=== PATIENT | female | born 1955 | race Caucasian/White ===

== ENCOUNTER → 2024-10-30 04:00 | Outpatient (REF) | payer MEDICARE, MEDICAID, SELFPAY ==
[2024-10-30 08:17] LABS: Hematocrit 23.2 % (37-47); Hemoglobin 7.3 g/dL (12.0-15.0); Mean Corp Hgb Conc 31.5 g/dL (32-36); Mean Corpuscular Hgb 22.8 pg (27.0-32.0); Mean Corpuscular Volume 72.5 fL (81-99); Mean Platelet Vol. 12.7 fl (6.2-12.0); Platelet Count 221 K/mm3 (150-450); RBC Distribution Width CV 17.5 % (11.6-14.6); RBC Distribution Width SD 45.7 fl (35.1-43.9); White Blood Count 19.4 K/mm3 (4.4-11.0)
[2024-10-30 09:36] LABS: ALB/GLOB Ratio 0.8 RATIO (0.9-2.4); AST(SGOT) 37 U/L (<=31); Alanine Aminotransfer ALT/SGPT 61 U/L (<=34); Albumin, Serum 2.5 g/dL (3.4-4.8); Alkaline Phosphatase 340 U/L (35-104); Anion Gap 10 (5-15); BUN 20 mg/dL (4-19); BUN/Creat Ratio 52.1 RATIO (10-20); Calcium,Total 7.9 mg/dL (7.6-11.0); Carbon Dioxide 22.5 mmol/L (21.0-32.0); Chloride 100 mmol/L (98-108); Creatinine, Serum 0.38 mg/dL (0.70-1.20); EST Glomerular Filtration Rate 109 (>60); Globulin 2.9 g/dL (2.2-4.2); Glucose 221 mg/dL (70-99); Phosphorus 3.4 mg/dL (2.7-4.5); Potassium 4.1 mmol/L (3.3-5.1); Protein, Total 5.4 g/dL (5.9-8.4); Sodium Level 133 mmol/L (133-145); Total Bilirubin 0.34 mg/dL (0.00-1.30); Triglycerides 80 mg/dL
[2024-11-02 06:08] LABS: Zinc, Plasma or Serum 41 ug/dL (44-115)
== END ==
LOC: OLS.SW 04:00
PROVIDERS: Referring Provider Internal Medicine; Visit Provider Internal Medicine
DX: D64.9 Anemia, unspecified (principal); E43 Unspecified severe protein-calorie malnutrition; M86.9 Osteomyelitis, unspecified; I96 Gangrene, not elsewhere classified; K63.2 Fistula of intestine
CPT/HCPCS: 36415; 80053; 83735; 84100; 84478; 84630; 85027

== ENCOUNTER → 2024-10-30 12:45 | Outpatient (REF) | payer MEDICARE, MEDICAID, SELFPAY | LOC: OLS.SW 12:45 | PROVIDERS: PCP Internal Medicine; Visit Provider Internal Medicine | DX: D72.829 Elevated white blood cell count, unspecified (principal) | CPT/HCPCS: 87040; 87077; 87186 ==

== ENCOUNTER 2024-10-30 23:41 | Emergency (ER) | payer MEDICARE, MEDICAID, SELFPAY ==
[2024-10-30 23:43] VITALS: BP 102/59; PULSE 86; RESP 19; TEMP 36.6; O2SAT 92; BMI 18.4
--- NOTE | 2024-10-30 23:45 | EX.ED.DYSGE1 ---
HPI History of Present Illness Chief Complaint: Abn Labs [facility] Medical History (Updated 10/31/24 @ 00:43 by Mehran Weaver) Need for assistance with personal care Body mass index [BMI] 19.9 or less, adult Unspecified open wound of abdominal wall, unspecified quadrant without penetration into peritoneal cavity, sequela Pressure ulcer of right buttock Pressure ulcer of sacral region Non-pressure chronic ulcer left lower leg, limited to breakdown skin Hypoglycemia History of falling Encounter for orthopedic aftercare following surgical amputation Other malaise Other abnormalities of gait and mobility Muscle weakness (generalized) Other symbolic dysfunction Dysphagia Idiopathic peripheral autonomic neuropathy Iron deficiency anemia Failure to thrive Acquired absence of other right toe(s) Peripheral vascular disease Anemia Fistula of intestine Gangrene Osteomyelitis Severe protein-calorie malnutrition Home Medications ?Medication ?Instructions ?Recorded ?Last Taken ?Type aspirin 81 mg tablet 81 mg PO DAILY 10/31/24 Unknown History atorvastatin 80 mg tablet (Lipitor) 80 mg PO QHS 10/31/24 Unknown History citalopram 10 mg tablet (Celexa) 10 mg PO QHS 10/31/24 Unknown History ferrous sulfate 325 mg (65 mg 325 mg PO DAILY 10/31/24 Unknown History iron) tablet (Feosol) gabapentin 100 mg capsule 100 mg PO DAILY 10/31/24 Unknown History heparin (porcine) 5,000 unit/mL 5,000 unit subcut Q12H 10/31/24 Unknown History injection solution Allergy/AdvReac Type Severity Reaction Status Date / Time No Known Allergies Allergy Verified 10/30/24 23:43 Social History (System 09/19/24 @ 05:44 by Rachele Whitney) Smoking Status: Never smoker EXAM Physical Exam Const Vital Signs: 10/30/24 23:43 10/31/24 00:00 10/31/24 00:00 Temperature 97.8 F 97.8 F Temperature Source Oral Oral Pulse Rate 86 87 Respiratory Rate 19 H 20 H Respiratory Effort Respiratory Pattern Blood Pressure 102/59 L 106/46 L Blood Pressure Mean 73 66 Pulse Ox 92 92 Oxygen Delivery Method Room Air Room Air 10/31/24 00:51 10/31/24 01:24 10/31/24 01:51 Temperature 97.7 F L Temperature Source Temporal Pulse Rate 78 Respiratory Rate 15 Respiratory Effort Normal Respiratory Pattern Normal Blood Pressure 94/41 L 93/48 L Blood Pressure Mean 58 63 Pulse Ox 94 Oxygen Delivery Method 10/31/24 02:00 10/31/24 03:00 10/31/24 04:00 Temperature 97.9 F 97.7 F L 97.8 F Temperature Source Oral Oral Oral Pulse Rate 81 78 86 Respiratory Rate 13 15 15 Respiratory Effort Respiratory Pattern Blood Pressure 93/43 L 90/63 96/42 L Blood Pressure Mean 59 72 60 Pulse Ox 97 95 95 Oxygen Delivery Method Room Air 10/31/24 05:00 Temperature 97.6 F L Temperature Source Oral Pulse Rate 84 Respiratory Rate 14 Respiratory Effort Respiratory Pattern Blood Pressure 103/47 L Blood Pressure Mean 65 Pulse Ox 95 Oxygen Delivery Method [facility] [place] Medical decision making narrative: HISTORY OF PRESENT ILLNESS: Chief complaint: Abnormal lab 69-year-old female presents concern for abnormal labs. Per assisted report patient had positive blood cultures and the white blood cell count elevation which was concerning. 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 She notes chronic wounds to her feet that have been taken care of by podiatry in the past. She notes she was sent in because of abnormal blood work. She is overall a poor historian. Does not endorse any new symptoms other than shortness of breath. REVIEW OF SYSTEMS: Pertinent positives: Positive blood cultures, elevated white blood cell count, shortness of breath Pertinent negatives: Chest pain, vomiting PHYSICAL EXAM: Nursing triage notes reviewed, Vital signs reviewed Constitutional: please see [facility] HENT: MMM Eyes: Pupils equal round and reactive to light, Extraocular muscles intact Neck: No stridor, no JVD, full neck ROM Lungs: Clear to auscultation, No wheezing or rales. No increased work of breathing, no conversational dyspnea, no accessory muscle use, no nasal flaring. No respiratory distress noted Heart: Regular rate and rhythm, No murmurs, No rubs and No gallops, 2+ distal pulses (radial, femoral, posterior tibial) in all extremities Abdomen: Soft, there is no tenderness, rigidity, rebound or guarding, no obvious peritoneal signs, no palpable pulsatile abdominal masses, no auscultated abdominal bruit : No CVAT Extremities: No edema Neuro: No new focal neurological deficits, cranial nerves II through XII intact, 5/5 strength in all present extremities. Intact sensation to light touch in all present extremities, 2+ reflexes bilateral patella tendons. Skin: No rash or lesions noted MEDICAL DECISION MAKING: Chief Complaint: please see HPI External records reviewed: Reviewed labs from earlier today CBC shows leukocytosis (19.4) suggestive of systemic elevation, this is uptrending markedly from prior studies which showed a white count of 8.6 and 11.3 respectively. BMP without significant [place] normalities, no sign of metabolic acidosis or endorgan hypoperfusion with a normal bicarb and anion gap. 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 Blas), general surgery (Dr. Raza), [facility] internal medicine (Dr. Moncada) MDM Narrative: The patient was initially hemodynamically stable, afebrile and nontoxic-appearing. Exam with stool pouring out of her known [place] cutaneous fistula, the patient would not allow me to examine bilateral feet which are wrapped in bandages. She also had a sacral decubitus ulcer. I considered the following differential diagnosis: Intra-abdominal infection, sepsis, pneumonia, UTI I obtained a broad lab and imaging workup. U sepsis order set obtained blood cultures urine culture. Obtain x-ray as well as CT scan abdomen pelvis and a urine sample. ALL IMAGES (IF OBTAINED) HAVE BEEN PERSONALLY REVIEWED AND INTERPRETED BY MYSELF. EKG with normal sinus rhythm rate 87, normal axis, normal intervals, no STEMI Lactate is wnl indicating no end-organ hypoperfusion and/or hypoxia. CBC with leukocytosis suggestive of systemic inflammation, noted severe anemia (similar to baseline), no thrombocytopenia Correlation studies within normal limits BMP without evidence of significant electrolyte abnormalities, no anion gap, no acute kidney injury. LFTs with slight elevation liver enzymes Urinalysis shows no evidence of urinary inflammation suggestive of UTI CT scan abdomen pelvis shows evidence of several intra-abdominal and bony abnormality osteomyelitis and iliac us abscess. Initially discussed with the hospitalist who wanted me to clear the case with surgery. Then discussed with our general surgeon here at [facility] who stated the patient would need transferred as he did not feel comfortable intervening surgically and thought the patient be better served at a institution with more resources including interventional radiology. Patient's chest x-ray was read reviewed personally also showed evidence of possible right lower lobe pneumonia. Given multiple source of infection patient was started on broad-spectrum antibiotics including vancomycin and Zosyn. Given hypoglycemia she was given a D5 drip and blood sugars were monitored throughout her ED course. Given patient needed likely surgery/interventional radiology for abscess patient was transferred to [facility] discussed with Dr. Fuller who accepted patient approximate 4 AM on 10/31/2024. Patient is awaiting a bed at this time. The patient and/or family, caregivers express understanding. The patient and/or family, caregivers agrees with the plan. Shared decision making: I will have a discussion with the patient and or visitors regarding risk/benefits of further testing or admission. They will be made aware of of the risk/benefits inherent in this decision they will be given the opportunity to voice understanding. Total critical care time today provided was at least 35 minutes. This excludes separately billable procedures. Critical care time (if documented) is secondary to the patient having high probability of clinically significant/life threatening deterioration in the patient's condition which required my urgent intervention. Impression: 1. Sepsis 2. Iliac abscess 3. Hyperglycemia Dispo: Transfer This note was generated with [employer] dictation software. It may contain incorrect words, spelling, and punctuation that were not noted in review of the chart prior to signing. Lab Data Labs: Laboratory Results - last 24 hr 10/30/24 10/31/24 10/31/24 23:57 01:15 01:39 WBC 11.9 H RBC 3.21 L Hgb 7.4 L Hct 22.9 L MCV 71.3 L MCH 23.1 L MCHC 32.3 RDW Std Deviation 44.6 H RDW Coeff of Berta 17.5 H Plt Count 267 MPV 11.4 Immature Gran % (Auto) 0.400 Neut % (Auto) 74.2 H Lymph % (Auto) 11.4 L [place] % (Auto) 11.0 H Eos % (Auto) 2.5 Baso % (Auto) 0.5 Absolute Neuts (auto) 8.8 H Absolute Lymphs (auto) 1.35 Nucleated RBC % 0 PT 14.8 INR 1.1 APTT 36.4 H Sodium 135 Potassium 3.8 Chloride 103 Carbon Dioxide 23.5 Anion Gap 9 BUN 19 Creatinine 0.34 L Estim Creat Clear Calc 44.95 L Est GFR (MDRD) Non-Af 111 BUN/Creatinine Ratio 56.9 H Glucose 31 L* Lactic Acid 1.2 Calcium 8.4 Total Bilirubin 0.33 AST 48 H ALT 60 H Alkaline Phosphatase 311 H Total Protein 5.5 L Albumin 2.4 L Globulin 3.1 Albumin/Globulin Ratio 0.8 L Urine Color Yellow Urine Clarity Clear Urine pH 5.0 Ur Specific [place] 1.020 Urine Protein 15 H Urine Glucose (UA) Normal Urine Ketones Negative Urine Occult Blood Negative Urine Nitrite Negative Urine Bilirubin Negative Urine Urobilinogen Normal Ur Leukocyte Esterase Negative Urine RBC 0 SEEN Urine WBC 0 SEEN Ur Squamous Epith Cells 0 SEEN Urine Bacteria 2+ Urine Mucus 2+ POC Glucose 98 10/31/24 03:30 WBC RBC Hgb Hct MCV MCH MCHC RDW Std Deviation RDW Coeff of Berta Plt Count MPV Immature Gran % (Auto) Neut % (Auto) Lymph % (Auto) [place] % (Auto) Eos % (Auto) Baso % (Auto) Absolute Neuts (auto) Absolute Lymphs (auto) Nucleated RBC % PT INR APTT Sodium Potassium Chloride Carbon Dioxide Anion Gap BUN Creatinine Estim Creat Clear Calc Est GFR (MDRD) Non-Af BUN/Creatinine Ratio Glucose Lactic Acid Calcium Total Bilirubin AST ALT Alkaline Phosphatase Total Protein Albumin Globulin Albumin/Globulin Ratio Urine Color Urine Clarity Urine pH Ur Specific [place] Urine Protein Urine Glucose (UA) Urine Ketones Urine Occult Blood Urine Nitrite Urine Bilirubin Urine Urobilinogen Ur Leukocyte Esterase Urine RBC Urine WBC Ur Squamous Epith Cells Urine Bacteria Urine Mucus POC Glucose 134 H Radiography Diagnostic Testing: Clinical Impression(s) from Imaging Studies Chest X-Ray 10/30/24 23:55 IMPRESSION: Mild bilateral basilar infiltrates, possibly multifocal pneumonia. Right PICC line is in good position. Reading Location: [id number] Abdomen/Pelvis CT 10/31/24 02:08 IMPRESSION: 1. Mild bilateral pleural effusions. 2. Passive atelectatic airspace disease of the lower lobes. 3. Fistulous tract is noted arising from the descending colon measuring 5.5 cm in its length extending to the left iliacus muscle. Secondary intramuscular iliacus abscess formation measuring 7.2 x 3.6 cm in its largest anteroposterior and transverse dimensions respectively. 4. Subsequent erosive changes of the corresponding aspect of the left iliac bone with periosteal reaction suggestive of osteomyelitis. 5. Secondary extension of the left iliacus abscess through the overlying soft tissues. 6. Diffuse thickening of the colon suggestive of colitis. 7. Diffuse thickening of the small bowel suggestive of enteritis. 8. Diffuse thickening of the stomach suggestive of gastritis. 9. No perforation or pneumatosis intestinalis is identified. 10. Soft tissue edema/ulcer overlying the tip of the coccyx without associated osteomyelitis or drainable soft tissue abscess. 11. Heavily calcified atheromatous plaques of the aorta and its branches. 12. Diffuse thickening of the bladder suggestive of cystitis. 13. Chronic changes of pelvic congestion syndrome. 14. Osteopenia. 15. Subacute osteoporotic compression fracture of L1 vertebral body. Reading [facility] Discharge Plan Triage Chief Complaint: Abn Labs ED Provider: Jesus Curtis Dx/Rx/DC Orders Prescriptions: No Action aspirin 81 mg tablet 81 mg PO DAILY atorvastatin [Lipitor] 80 mg tablet 80 mg PO QHS citalopram [Celexa] 10 mg tablet 10 mg PO QHS ferrous sulfate [Feosol] 325 mg (65 mg iron) tablet 325 mg PO DAILY gabapentin 100 mg capsule 100 mg PO DAILY heparin (porcine) 5,000 unit/mL solution 5,000 unit subcut Q12H Primary Care Provider: Olya Piña Referrals: Olya Piña MD [Primary Care Provider] - Print Language: Chilean
--- NOTE | 2024-10-30 23:50 | EKG12_ITS ---
Test Reason : Blood Pressure : */* mmHG Vent. Rate : 87 BPM Atrial Rate : 87 BPM P-R Int : 146 ms QRS Dur : 80 ms QT Int : 368 ms P-R-T Axes : 55 27 65 degrees QTcB Int : 442 ms Normal sinus rhythm Low voltage QRS Borderline ECG No previous ECGs available Confirmed by Jules Hart ([id number]), society editor TYSON OHARA ([id number]) on 11/01/2024 8:13:14 AM Referred By: Confirmed By: Jules Hart
--- NOTE | 2024-10-30 23:55 | RAD_ITS ---
PROCEDURE: CHEST 1 VIEW (PORTABLE) 10/31/2024 REASON FOR EXAM: LEUKOCYTOSIS TECHNIQUE: Frontal view of the chest. FINDINGS: Right PICC line is in good position with its tip in the superior vena cava. Mild bilateral basilar pulmonary infiltrates. There is no demonstrated pleural abnormality. Normal heart and pericardium. Normal mediastinum and maria d. Normal visualized pulmonary arteries. Normal visualized aortic arch and descending thoracic aorta. Normal visualized thoracic spine. Normal visualized ribs, clavicles, and shoulders. There is no demonstrated abnormality of the visualized soft tissue structures of the upper abdomen. RAD/Chest 1 View (Portable) IMPRESSION: Mild bilateral basilar infiltrates, possibly multifocal pneumonia. Right PICC line is in good position. Reading Location[facility]
[2024-10-31] VITALS (10 sets, daily range): BP systolic 90–114; BP diastolic 41–78; PULSE 78–92; RESP 13–99; TEMP 36.4–37.1; O2SAT 92–98
--- OUTSIDE RECORDS SUMMARY | 2024-10-31 00:01 | XMS RPT_ITS | CCD ---
Author Organization [facility] Care Team Providers Care Sieve Grader Tender Name Role Phone Gudla OLS, Olya Referring Unavailable Gudla OLS, Olya Attending Unavailable Gudla OLS, Olya Attending Unavailable Gudla OLS, Olya Attending Unavailable Gudla OLS, Olya Attending Unavailable Gudla OLS, Olya Attending Unavailable Gudla OLS, Olya Attending Unavailable Gudla OLS, Olya Attending Unavailable Gudla OLS, Olya Attending Unavailable Gudla OLS, Olya Attending Unavailable Gudla OLS, Olya Referring Unavailable Gudla OLS, Olya Attending Unavailable Gudla OLS, Olya Attending Unavailable Gudla OLS, Olya Attending Unavailable Gudla OLS, Olya Attending Unavailable Gudla OLS, Olya Attending Unavailable Gudla OLS, Olya Attending Unavailable Gudla OLS, Olya Attending Unavailable Gudla OLS, Olya Attending Unavailable Gudla OLS, Olya Attending Unavailable Gudla OLS, Olya Attending Unavailable Gudla OLS, Olya Attending Unavailable Gudla OLS, Olya Referring Unavailable Gudla OLS, Olya Attending Unavailable Gudla OLS, Olya Attending Unavailable Gudla OLS, Olya Attending Unavailable Gudla OLS, Olya Attending Unavailable Gudla OLS, Olya Attending Unavailable Gudla OLS, Olya Attending Unavailable Gudla OLS, Olya Attending Unavailable Results Test Name Value Interpretation Reference Range Facility CBC-Complete Blood Cnt No Di ffon 10-30-2024 Erythrocyte distribution width (RBC) [Ratio] 17.5 % High 11.6-14.6 [facility] Comment on above: Order Comment: 205 Performed By: #### L 100.0500 ####[facility] [address] [place], [address] Hematocrit (Bld) [Volume fraction] 23.2 % Low 37-47 [facility] Comment on above: Order Comment: 205 Performed By: #### L 100.0500 ####[facility] [address] [place], [address] Hemoglobin (Bld) [Mass/Vol] 7.3 g/dL Low 12.0-15.0 [facility] Comment on above: Order Comment: 205 Performed By: #### L 100.0500 ####[facility] [address] [place], [address] MCH (RBC) [Entitic mass] 22.8 pg Low 27.0-32.0 [facility] Comment on above: Order Comment: 205 Performed By: #### L 100.0500 ####[facility] [address] [place], [address] MCHC (RBC) [Mass/Vol] 31.5 g/dL Low 32-36 [facility] Comment on above: Order Comment: 205 Performed By: #### L 100.0500 ####[facility] [address] [place], [address] MCV (RBC) [Entitic vol] 72.5 fL Low 81-99 [facility] Comment on above: Order Comment: 205 Performed By: #### L 100.0500 ####[facility] [address] [place], [address] Platelet mean volume (Bld) [Entitic vol] 12.7 fL High 6.2-12.0 [facility] Comment on above: Order Comment: 205 Performed By: #### L 100.0500 ####[facility] [address] [place], [address] Platelets (Bld) [#/Vol] 221 10*3/uL Normal 150-450 [facility] Comment on above: Order Comment: 205 Performed By: #### L 100.0500 ####[facility] [address] [place], [address] RBC (Bld) [#/Vol] 3.20 10*6/uL Low 4.2-5.4 [facility] Comment on above: Order Comment: 205 Performed By: #### L 100.0500 ####[facility] [address] [place], [address] RDW SD 45.7 fl High 35.1-43.9 [facility] Comment on above: Order Comment: 205 Performed By: #### L 100.0500 ####[facility] [address] [place], [address] WBC (Bld) [#/Vol] 19.4 10*3/uL High 4.4-11.0 [facility] Comment on above: Order Comment: 205 Performed By: #### L 100.0500 ####[facility] [address] [place], [address] Zinc, WHOLE BLOODon 10-31-19 25 Zinc Whole Bld Normal [facility] Comment on above: Order Comment: 205 Result Comment: TEST RESULTS LIMITSZinc, Whole Blood, 439 Low ug/dL 440-860 TESTING PERFORMED AT [facility]. ORIGINAL REPORT ON FILE IN LAB CONTAINS ADDITIONAL TEST SITE INFORMATION. __ Performed By: #### L 501.2300, L3300.9910, L501.5000, L501.5200, L100.0500, L500.4050 ####[facility] [address] [place], [address] CBC-Complete Blood Cnt No Di ffon 10-26-2024 Erythrocyte distribution width (RBC) [Ratio] 17.2 % High 11.6-14.6 [facility] Comment on above: Performed By: #### L 100.0500, L501.5200, L500.4050, L501.2300 ####[facility] [address] [place], [address] Hematocrit (Bld) [Volume fraction] 23.6 % Low 37-47 [facility] Comment on above: Performed By: #### L 100.0500, L501.5200, L500.4050, L501.2300 ####[facility] [address] [place], [address] Hemoglobin (Bld) [Mass/Vol] 7.5 g/dL Low 12.0-15.0 [facility] Comment on above: Performed By: #### L 100.0500, L501.5200, L500.4050, L501.2300 ####[facility] [address] [place], [address] MCH (RBC) [Entitic mass] 23.1 pg Low 27.0-32.0 [facility] Comment on above: Performed By: #### L 100.0500, L501.5200, L500.4050, L501.2300 ####[facility] [address] [place], [address] MCHC (RBC) [Mass/Vol] 31.8 g/dL Low 32-36 [facility] Comment on above: Performed By: #### L 100.0500, L501.5200, L500.4050, L501.2300 ####[facility] [address] [place], [address] MCV (RBC) [Entitic vol] 72.8 fL Low 81-99 [facility] Comment on above: Performed By: #### L 100.0500, L501.5200, L500.4050, L501.2300 ####[facility] [address] [place], [address] Platelet mean volume (Bld) [Entitic vol] 11.9 fL Normal 6.2-12.0 [facility] Comment on above: Performed By: #### L 100.0500, L501.5200, L500.4050, L501.2300 ####[facility] [address] [place], [address] Platelets (Bld) [#/Vol] 253 10*3/uL Normal 150-450 [facility] Comment on above: Performed By: #### L 100.0500, L501.5200, L500.4050, L501.2300 ####[facility] [address] [place], [address] RBC (Bld) [#/Vol] 3.24 10*6/uL Low 4.2-5.4 [facility] Comment on above: Performed By: #### L 100.0500, L501.5200, L500.4050, L501.2300 ####[facility] [address] [place], [address] RDW SD 45.8 fl High 35.1-43.9 [facility] Comment on above: Performed By: #### L 100.0500, L501.5200, L500.4050, L501.2300 ####[facility] [address] [place], [address] WBC (Bld) [#/Vol] 11.3 10*3/uL High 4.4-11.0 [facility] Comment on above: Performed By: #### L 100.0500, L501.5200, L500.4050, L501.2300 ####[facility] [address] [place], [address] Comprehensive Metabolic Prof chiara 10-26-2024 Albumin [Mass/Vol] 2.4 g/dL Low 3.4-4.8 [facility] Comment on above: Performed By: #### L 100.0500, L501.5200, L500.4050, L501.2300 ####[facility] [address] [place], [address] Albumin/Globulin [Mass ratio] 0.8 {ratio} Low 0.9-2.4 [facility] Comment on above: Performed By: #### L 100.0500, L501.5200, L500.4050, L501.2300 ####[facility] [address] [place], [address] ALK PHOS 357 U/L High 35-104 [facility] Comment on above: Performed By: #### L 100.0500, L501.5200, L500.4050, L501.2300 ####[facility] [address] [place], [address] ALT [Catalytic activity/Vol] 57 U/L High <=34 [facility] Comment on above: Performed By: #### L 100.0500, L501.5200, L500.4050, L501.2300 ####[facility] [address] [place], [address] AST [Catalytic activity/Vol] 44 U/L High <=31 [facility] Comment on above: Performed By: #### L 100.0500, L501.5200, L500.4050, L501.2300 ####[facility] [address] [place], [address] Bilirubin [Mass/Vol] 0.35 mg/dL Normal 0.00-1.30 [facility] Comment on above: Performed By: #### L 100.0500, L501.5200, L500.4050, L501.2300 ####[facility] [address] [place], [address] BUN/CRE 71.8 RATIO High 10-20 [facility] Comment on above: Performed By: #### L 100.0500, L501.5200, L500.4050, L501.2300 ####[facility] [address] [place], [address] Calcium [Mass/Vol] 8.0 mg/dL Normal 7.6-11.0 [facility] Comment on above: Performed By: #### L 100.0500, L501.5200, L500.4050, L501.2300 ####[facility] [address] [place], [address] Chloride [Moles/Vol] 101 mmol/L Normal 98-108 [facility] Comment on above: Performed By: #### L 100.0500, L501.5200, L500.4050, L501.2300 ####[facility] [address] [place], [address] CO2 [Moles/Vol] 23.1 mmol/L Normal 21.0-32.0 [facility] Comment on above: Performed By: #### L 100.0500, L501.5200, L500.4050, L501.2300 ####[facility] [address] [place], [address] Creatinine [Mass/Vol] 0.29 mg/dL Low 0.70-1.20 [facility] Comment on above: Performed By: #### L 100.0500, L501.5200, L500.4050, L501.2300 ####[facility] [address] [place], [address] GAP 9 Normal 5-15 [facility] Comment on above: Performed By: #### L 100.0500, L501.5200, L500.4050, L501.2300 ####[facility] [address] [place], [address] GFR/1.73 sq M.predicted among non-blacks MDRD (S/P/Bld) [Vol rate/Area] 116 mL/min/{1.73_m2} Normal >60 [facility] Comment on above: Result Comment: mL/m in/1.73m2 CKD-EPI Creatinine Equation (2020) Performed By: #### L 100.0500, L501.5200, L500.4050, L501.2300 ####[facility] [address] [place], [address] Globulin (S) [Mass/Vol] 3.1 g/dL Normal 2.2-4.2 [facility] Comment on above: Performed By: #### L 100.0500, L501.5200, L500.4050, L501.2300 ####[facility] [address] [place], [address] Glucose [Mass/Vol] 133 mg/dL High 70-99 [facility] Comment on above: Performed By: #### L 100.0500, L501.5200, L500.4050, L501.2300 ####[facility] [address] [place], [address] Potassium [Moles/Vol] 4.6 mmol/L Normal 3.3-5.1 [facility] Comment on above: Performed By: #### L 100.0500, L501.5200, L500.4050, L501.2300 ####[facility] [address] [place], [address] Sodium [Moles/Vol] 133 mmol/L Normal 133-145 [facility] Comment on above: Performed By: #### L 100.0500, L501.5200, L500.4050, L501.2300 ####[facility] [address] [place], [address] T PROT 5.5 g/dL Low 5.9-8.4 [facility] Comment on above: Performed By: #### L 100.0500, L501.5200, L500.4050, L501.2300 ####[facility] [address] [place], [address] Urea nitrogen [Mass/Vol] 21 mg/dL High 4-19 [facility] Comment on above: Performed By: #### L 100.0500, L501.5200, L500.4050, L501.2300 ####[facility] [address] [place], [address] Magnesiumon 10-26-2024 Magnesium [Mass/Vol] 2.1 mg/dL Normal 1.5-2.2 [facility] Comment on above: Performed By: #### L 100.0500, L501.5200, L500.4050, L501.2300 ####[facility] [address] [place], [address] Phosphoruson 10-26-2024 Phosphate [Mass/Vol] 3.4 mg/dL Normal 2.7-4.5 [facility] Comment on above: Performed By: #### L 100.0500, L501.5200, L500.4050, L501.2300 ####[facility] [address] [place], [address] CBC-Complete Blood Cnt No Di ffon 10-24-2024 Erythrocyte distribution width (RBC) [Ratio] 17.6 % High 11.6-14.6 [facility] Comment on above: Order Comment: 205 Performed By: #### L 501.2300, L3300.9910, L501.5000, L501.5200, L100.0500, L500.4050 ####[facility] [address] [place], [address] Hematocrit (Bld) [Volume fraction] 24.9 % Low 37-47 [facility] Comment on above: Order Comment: 205 Performed By: #### L 501.2300, L3300.9910, L501.5000, L501.5200, L100.0500, L500.4050 ####[facility] [address] [place], [address] Hemoglobin (Bld) [Mass/Vol] 7.8 g/dL Low 12.0-15.0 [facility] Comment on above: Order Comment: 205 Performed By: #### L 501.2300, L3300.9910, L501.5000, L501.5200, L100.0500, L500.4050 ####[facility] [address] [place], [address] MCH (RBC) [Entitic mass] 22.9 pg Low 27.0-32.0 [facility] Comment on above: Order Comment: 205 Performed By: #### L 501.2300, L3300.9910, L501.5000, L501.5200, L100.0500, L500.4050 ####[facility] [address] [place], [address] MCHC (RBC) [Mass/Vol] 31.3 g/dL Low 32-36 [facility] Comment on above: Order Comment: 205 Performed By: #### L 501.2300, L3300.9910, L501.5000, L501.5200, L100.0500, L500.4050 ####[facility] [address] [place], [address] MCV (RBC) [Entitic vol] 73.0 fL Low 81-99 [facility] Comment on above: Order Comment: 205 Performed By: #### L 501.2300, L3300.9910, L501.5000, L501.5200, L100.0500, L500.4050 ####[facility] [address] [place], [address] Platelet mean volume (Bld) [Entitic vol] 12.1 fL High 6.2-12.0 [facility] Comment on above: Order Comment: 205 Performed By: #### L 501.2300, L3300.9910, L501.5000, L501.5200, L100.0500, L500.4050 ####[facility] [address] [place], [address] Platelets (Bld) [#/Vol] 289 10*3/uL Normal 150-450 [facility] Comment on above: Order Comment: 205 Performed By: #### L 501.2300, L3300.9910, L501.5000, L501.5200, L100.0500, L500.4050 ####[facility] [address] [place], [address] RBC (Bld) [#/Vol] 3.41 10*6/uL Low 4.2-5.4 [facility] Comment on above: Order Comment: 205 Performed By: #### L 501.2300, L3300.9910, L501.5000, L501.5200, L100.0500, L500.4050 ####[facility] [address] [place], [address] RDW SD 46.1 fl High 35.1-43.9 [facility] Comment on above: Order Comment: 205 Performed By: #### L 501.2300, L3300.9910, L501.5000, L501.5200, L100.0500, L500.4050 ####[facility] [address] [place], [address] WBC (Bld) [#/Vol] 8.6 10*3/uL Normal 4.4-11.0 [facility] Comment on above: Order Comment: 205 Performed By: #### L 501.2300, L3300.9910, L501.5000, L501.5200, L100.0500, L500.4050 ####[facility] [address] [place], [address] Comprehensive Metabolic Prof ilon 10-24-2024 Albumin [Mass/Vol] 2.5 g/dL Low 3.4-4.8 [facility] Comment on above: Order Comment: 205 Performed By: #### L 501.2300, L3300.9910, L501.5000, L501.5200, L100.0500, L500.4050 ####[facility] [address] [place], [address] Albumin/Globulin [Mass ratio] 0.9 {ratio} Normal 0.9-2.4 [facility] Comment on above: Order Comment: 205 Performed By: #### L 501.2300, L3300.9910, L501.5000, L501.5200, L100.0500, L500.4050 ####[facility] [address] [place], [address] ALK PHOS 406 U/L High 35-104 [facility] Comment on above: Order Comment: 205 Performed By: #### L 501.2300, L3300.9910, L501.5000, L501.5200, L100.0500, L500.4050 ####[facility] [address] [place], [address] ALT [Catalytic activity/Vol] 63 U/L High <=34 [facility] Comment on above: Order Comment: 205 Performed By: #### L 501.2300, L3300.9910, L501.5000, L501.5200, L100.0500, L500.4050 ####[facility] [address] [place], [address] AST [Catalytic activity/Vol] 44 U/L High <=31 [facility] Comment on above: Order Comment: 205 Performed By: #### L 501.2300, L3300.9910, L501.5000, L501.5200, L100.0500, L500.4050 ####[facility] [address] [place], [address] Bilirubin [Mass/Vol] 0.30 mg/dL Normal 0.00-1.30 [facility] Comment on above: Order Comment: 205 Performed By: #### L 501.2300, L3300.9910, L501.5000, L501.5200, L100.0500, L500.4050 ####[facility] [address] [place], [address] BUN/CRE 42.6 RATIO High 10-20 [facility] Comment on above: Order Comment: 205 Performed By: #### L 501.2300, L3300.9910, L501.5000, L501.5200, L100.0500, L500.4050 ####[facility] [address] [place], [address] Calcium [Mass/Vol] 7.9 mg/dL Normal 7.6-11.0 [facility] Comment on above: Order Comment: 205 Performed By: #### L 501.2300, L3300.9910, L501.5000, L501.5200, L100.0500, L500.4050 ####[facility] [address] [place], [address] Chloride [Moles/Vol] 100 mmol/L Normal 98-108 [facility] Comment on above: Order Comment: 205 Performed By: #### L 501.2300, L3300.9910, L501.5000, L501.5200, L100.0500, L500.4050 ####[facility] [address] [place], [address] CO2 [Moles/Vol] 22.5 mmol/L Normal 21.0-32.0 [facility] Comment on above: Order Comment: 205 Performed By: #### L 501.2300, L3300.9910, L501.5000, L501.5200, L100.0500, L500.4050 ####[facility] [address] [place], [address] Creatinine [Mass/Vol] 0.36 mg/dL Low 0.70-1.20 [facility] Comment on above: Order Comment: 205 Performed By: #### L 501.2300, L3300.9910, L501.5000, L501.5200, L100.0500, L500.4050 ####[facility] [address] [place], [place], [address] GAP 8 Normal 5-15 [facility] Comment on above: Order Comment: 205 Performed By: #### L 501.2300, L3300.9910, L501.5000, L501.5200, L100.0500, L500.4050 ####[facility] [address] [place], [address] GFR/1.73 sq M.predicted among non-blacks MDRD (S/P/Bld) [Vol rate/Area] 110 mL/min/{1.73_m2} Normal >60 [facility] Comment on above: Order Comment: 205 Result Comment: mL/m in/1.73m2 CKD-EPI Creatinine Equation (2020) Performed By: #### L 501.2300, L3300.9910, L501.5000, L501.5200, L100.0500, L500.4050 ####[facility] [address] [place], [address] Globulin (S) [Mass/Vol] 2.9 g/dL Normal 2.2-4.2 [facility] Comment on above: Order Comment: 205 Performed By: #### L 501.2300, L3300.9910, L501.5000, L501.5200, L100.0500, L500.4050 ####[facility] [address] [place], [address] Glucose [Mass/Vol] 257 mg/dL High 70-99 [facility] Comment on above: Order Comment: 205 Performed By: #### L 501.2300, L3300.9910, L501.5000, L501.5200, L100.0500, L500.4050 ####[facility] [address] [place], [address] Potassium [Moles/Vol] 4.4 mmol/L Normal 3.3-5.1 [facility] Comment on above: Order Comment: 205 Performed By: #### L 501.2300, L3300.9910, L501.5000, L501.5200, L100.0500, L500.4050 ####[facility] [address] [place], [address] Sodium [Moles/Vol] 131 mmol/L Low 133-145 [facility] Comment on above: Order Comment: 205 Performed By: #### L 501.2300, L3300.9910, L501.5000, L501.5200, L100.0500, L500.4050 ####[facility] [address] [place], [address] T PROT 5.5 g/dL Low 5.9-8.4 [facility] Comment on above: Order Comment: 205 Performed By: #### L 501.2300, L3300.9910, L501.5000, L501.5200, L100.0500, L500.4050 ####[facility] [address] [place], [address] Urea nitrogen [Mass/Vol] 15 mg/dL Normal 4-19 [facility] Comment on above: Order Comment: 205 Performed By: #### L 501.2300, L3300.9910, L501.5000, L501.5200, L100.0500, L500.4050 ####[facility] [address] [place], [address] Magnesiumon 10-24-2024 Magnesium [Mass/Vol] 2.1 mg/dL Normal 1.5-2.2 [facility] Comment on above: Order Comment: 205 Performed By: #### L 501.2300, L3300.9910, L501.5000, L501.5200, L100.0500, L500.4050 ####[facility] [address] [place], [address] Phosphoruson 10-24-2024 Phosphate [Mass/Vol] 3.1 mg/dL Normal 2.7-4.5 [facility] Comment on above: Order Comment: 205 Performed By: #### L 501.2300, L3300.9910, L501.5000, L501.5200, L100.0500, L500.4050 ####[facility] [address] [place], [place], [address] Triglycerideson 10-24-2024 Triglyceride [Mass/Vol] 119 mg/dL Normal [facility] Comment on above: Order Comment: 205 Result Comment: The drugs N-Acetylcysteine and Metamizole may falselydepress this assay.Normal range: <150 mg/dLBorderline High: 150-199 mg/dLHigh: 200-499 mg/dLVery High: >500 mg/dL Performed By: #### L 501.2300, L3300.9910, L501.5000, L501.5200, L100.0500, L500.4050 ####[facility] [address] [place], [address] Comprehensive Metabolic Prof ilon 10-19-2024 Albumin [Mass/Vol] 2.6 g/dL Low 3.4-4.8 [facility] Comment on above: Performed By: #### L 500.4050, L501.2300, L100.0500, L501.5200 ####[facility] [address] [place], [address] Albumin/Globulin [Mass ratio] 0.9 {ratio} Normal 0.9-2.4 [facility] Comment on above: Performed By: #### L 500.4050, L501.2300, L100.0500, L501.5200 ####[facility] [address] [place], [address] ALK PHOS 303 U/L High 35-104 [facility] Comment on above: Performed By: #### L 500.4050, L501.2300, L100.0500, L501.5200 ####[facility] [address] [place], [address] ALT [Catalytic activity/Vol] 115 U/L High <=34 [facility] Comment on above: Performed By: #### L 500.4050, L501.2300, L100.0500, L501.5200 ####[facility] [address] [place], [address] AST [Catalytic activity/Vol] 63 U/L High <=31 [facility] Comment on above: Performed By: #### L 500.4050, L501.2300, L100.0500, L501.5200 ####[facility] [address] [place], [address] Bilirubin [Mass/Vol] 0.29 mg/dL Normal 0.00-1.30 [facility] Comment on above: Performed By: #### L 500.4050, L501.2300, L100.0500, L501.5200 ####[facility] [address] [place], [address] BUN/CRE 67.8 RATIO High 10-20 [facility] Comment on above: Performed By: #### L 500.4050, L501.2300, L100.0500, L501.5200 ####[facility] [address] [place], [address] Calcium [Mass/Vol] 8.6 mg/dL Normal 7.6-11.0 [facility] Comment on above: Performed By: #### L 500.4050, L501.2300, L100.0500, L501.5200 ####[facility] [address] [place], [address] Chloride [Moles/Vol] 104 mmol/L Normal 98-108 [facility] Comment on above: Performed By: #### L 500.4050, L501.2300, L100.0500, L501.5200 ####[facility] [address] [place], [place], [address] CO2 [Moles/Vol] 23.8 mmol/L Normal 21.0-32.0 [facility] Comment on above: Performed By: #### L 500.4050, L501.2300, L100.0500, L501.5200 ####[facility] [address] [place], [address] Creatinine [Mass/Vol] 0.37 mg/dL Low 0.70-1.20 [facility] Comment on above: Performed By: #### L 500.4050, L501.2300, L100.0500, L501.5200 ####[facility] [address] [place], [address] GAP 8 Normal 5-15 [facility] Comment on above: Performed By: #### L 500.4050, L501.2300, L100.0500, L501.5200 ####[facility] [address] [place], [address] GFR/1.73 sq M.predicted among non-blacks MDRD (S/P/Bld) [Vol rate/Area] 109 mL/min/{1.73_m2} Normal >60 [facility] Comment on above: Result Comment: mL/m in/1.73m2 CKD-EPI Creatinine Equation (2020) Performed By: #### L 500.4050, L501.2300, L100.0500, L501.5200 ####[facility] [address] [place], [address] Globulin (S) [Mass/Vol] 2.7 g/dL Normal 2.2-4.2 [facility] Comment on above: Performed By: #### L 500.4050, L501.2300, L100.0500, L501.5200 ####[facility] [address] [place], [address] Glucose [Mass/Vol] 227 mg/dL High 70-99 [facility] Comment on above: Performed By: #### L 500.4050, L501.2300, L100.0500, L501.5200 ####[facility] [address] [place], [address] Potassium [Moles/Vol] 4.4 mmol/L Normal 3.3-5.1 [facility] Comment on above: Performed By: #### L 500.4050, L501.2300, L100.0500, L501.5200 ####[facility] [address] [place], [address] Sodium [Moles/Vol] 136 mmol/L Normal 133-145 [facility] Comment on above: Performed By: #### L 500.4050, L501.2300, L100.0500, L501.5200 ####[facility] [address] [place], [address] T PROT 5.3 g/dL Low 5.9-8.4 [facility] Comment on above: Performed By: #### L 500.4050, L501.2300, L100.0500, L501.5200 ####[facility] [address] [place], [address] Urea nitrogen [Mass/Vol] 25 mg/dL High 4-19 [facility] Comment on above: Performed By: #### L 500.4050, L501.2300, L100.0500, L501.5200 ####[facility] [address] [place], [address] Magnesiumon 10-19-2024 Magnesium [Mass/Vol] 1.9 mg/dL Normal 1.5-2.2 [facility] Comment on above: Performed By: #### L 500.4050, L501.2300, L100.0500, L501.5200 ####[facility] [address] [place], [address] Phosphoruson 10-19-2024 Phosphate [Mass/Vol] 2.5 mg/dL Low 2.7-4.5 [facility] Comment on above: Performed By: #### L 500.4050, L501.2300, L100.0500, L501.5200 ####[facility] [address] [place], [address] CBC-Complete Blood Cnt No Di ffon 10-18-2024 Erythrocyte distribution width (RBC) [Ratio] 17.3 % High 11.6-14.6 [facility] Comment on above: Order Comment: 205 Performed By: #### L 500.4050, L501.2300, L100.0500, L501.5200 ####[facility] [address], [address] Hematocrit (Bld) [Volume fraction] 26.6 % Low 37-47 [facility] Comment on above: Order Comment: 205 Performed By: #### L 500.4050, L501.2300, L100.0500, L501.5200 ####[facility] [address] [place], [address] Hemoglobin (Bld) [Mass/Vol] 8.1 g/dL Low 12.0-15.0 [facility] Comment on above: Order Comment: 205 Performed By: #### L 500.4050, L501.2300, L100.0500, L501.5200 ####[facility] [address] [place], [address] MCH (RBC) [Entitic mass] 23.0 pg Low 27.0-32.0 [facility] Comment on above: Order Comment: 205 Performed By: #### L 500.4050, L501.2300, L100.0500, L501.5200 ####[facility] [address] [place], [address] MCHC (RBC) [Mass/Vol] 30.5 g/dL Low 32-36 [facility] Comment on above: Order Comment: 205 Performed By: #### L 500.4050, L501.2300, L100.0500, L501.5200 ####[facility] [address] [place], [address] MCV (RBC) [Entitic vol] 75.6 fL Low 81-99 [facility] Comment on above: Order Comment: 205 Performed By: #### L 500.4050, L501.2300, L100.0500, L501.5200 ####[facility] [address] [place], [address] Platelet mean volume (Bld) [Entitic vol] 11.0 fL Normal 6.2-12.0 [facility] Comment on above: Order Comment: 205 Performed By: #### L 500.4050, L501.2300, L100.0500, L501.5200 ####[facility] [address] [place], [address] Platelets (Bld) [#/Vol] 179 10*3/uL Normal 150-450 [facility] Comment on above: Order Comment: 205 Performed By: #### L 500.4050, L501.2300, L100.0500, L501.5200 ####[facility] [address] [place], [address] RBC (Bld) [#/Vol] 3.52 10*6/uL Low 4.2-5.4 [facility] Comment on above: Order Comment: 205 Performed By: #### L 500.4050, L501.2300, L100.0500, L501.5200 ####[facility] [address] [place], [address] RDW SD 47.1 fl High 35.1-43.9 [facility] Comment on above: Order Comment: 205 Performed By: #### L 500.4050, L501.2300, L100.0500, L501.5200 ####[facility] [address] [place], [address] WBC (Bld) [#/Vol] 8.1 10*3/uL Normal 4.4-11.0 [facility] Comment on above: Order Comment: 205 Performed By: #### L 500.4050, L501.2300, L100.0500, L501.5200 ####[facility] [address] [place], [address] Zinc, WHOLE BLOODon 10-19-19 25 Zinc Whole Bld 478 ug/dL Normal 440-860 [facility] Comment on above: Order Comment: Test( s) 820526-Ozob, Whole Bloodwas developed and its performance characteristicsdetermined by [employer]. It has not been cleared or approvedby the Food and Drug Administration. Result Comment: Perf ormed at: - [address] [id number] Director: Elvie Fry MD, Phone: [phone] Performed By: #### L 501.2300, L500.4050, L501.5000, L3300.9910, L100.0500, L501.5200 ####[facility] [address] [place], [address] CBC-Complete Blood Cnt No Di ffon 10-16-2024 Erythrocyte distribution width (RBC) [Ratio] 16.9 % High 11.6-14.6 [facility] Comment on above: Order Comment: 205 Performed By: #### L 501.2300, L500.4050, L501.5000, L3300.9910, L100.0500, L501.5200 ####[facility] [address] [place], [address] Hematocrit (Bld) [Volume fraction] 27.4 % Low 37-47 [facility] Comment on above: Order Comment: 205 Performed By: #### L 501.2300, L500.4050, L501.5000, L3300.9910, L100.0500, L501.5200 ####[facility] [address] [place], [address] Hemoglobin (Bld) [Mass/Vol] 8.7 g/dL Low 12.0-15.0 [facility] Comment on above: Order Comment: 205 Performed By: #### L 501.2300, L500.4050, L501.5000, L3300.9910, L100.0500, L501.5200 ####[facility] [address] [place], [address] MCH (RBC) [Entitic mass] 24.0 pg Low 27.0-32.0 [facility] Comment on above: Order Comment: 205 Performed By: #### L 501.2300, L500.4050, L501.5000, L3300.9910, L100.0500, L501.5200 ####[facility] [address] [place], [address] MCHC (RBC) [Mass/Vol] 31.8 g/dL Low 32-36 [facility] Comment on above: Order Comment: 205 Performed By: #### L 501.2300, L500.4050, L501.5000, L3300.9910, L100.0500, L501.5200 ####[facility] [address] [place], [address] MCV (RBC) [Entitic vol] 75.5 fL Low 81-99 [facility] Comment on above: Order Comment: 205 Performed By: #### L 501.2300, L500.4050, L501.5000, L3300.9910, L100.0500, L501.5200 ####[facility] [address] [place], [address] Platelet mean volume (Bld) [Entitic vol] 9.9 fL Normal 6.2-12.0 [facility] Comment on above: Order Comment: 205 Performed By: #### L 501.2300, L500.4050, L501.5000, L3300.9910, L100.0500, L501.5200 ####[facility] [address] [place], [address] Platelets (Bld) [#/Vol] 291 10*3/uL Normal 150-450 [facility] Comment on above: Order Comment: 205 Performed By: #### L 501.2300, L500.4050, L501.5000, L3300.9910, L100.0500, L501.5200 ####[facility] [address] [place], [address] RBC (Bld) [#/Vol] 3.63 10*6/uL Low 4.2-5.4 [facility] Comment on above: Order Comment: 205 Performed By: #### L 501.2300, L500.4050, L501.5000, L3300.9910, L100.0500, L501.5200 ####[facility] [address] [place], [address] RDW SD 45.3 fl High 35.1-43.9 [facility] Comment on above: Order Comment: 205 Performed By: #### L 501.2300, L500.4050, L501.5000, L3300.9910, L100.0500, L501.5200 ####[facility] [address] [place], [address] WBC (Bld) [#/Vol] 17.8 10*3/uL High 4.4-11.0 [facility] Comment on above: Order Comment: 205 Performed By: #### L 501.2300, L500.4050, L501.5000, L3300.9910, L100.0500, L501.5200 ####[facility] [address] [place], [address] Comprehensive Metabolic Prof [facility] 10-16-2024 Albumin [Mass/Vol] 2.7 g/dL Low 3.4-4.8 [facility] Comment on above: Order Comment: 205 Performed By: #### L 501.2300, L500.4050, L501.5000, L3300.9910, L100.0500, L501.5200 ####[facility] [address] [place], [address] Albumin/Globulin [Mass ratio] 0.9 {ratio} Normal 0.9-2.4 [facility] Comment on above: Order Comment: 205 Performed By: #### L 501.2300, L500.4050, L501.5000, L3300.9910, L100.0500, L501.5200 ####[facility] [address] [place], [address] ALK PHOS 316 U/L High 35-104 [facility] Comment on above: Order Comment: 205 Performed By: #### L 501.2300, L500.4050, L501.5000, L3300.9910, L100.0500, L501.5200 ####[facility] [address] [place], [address] ALT [Catalytic activity/Vol] 165 U/L High <=34 [facility] Comment on above: Order Comment: 205 Performed By: #### L 501.2300, L500.4050, L501.5000, L3300.9910, L100.0500, L501.5200 ####[facility] [address] [place], [address] AST [Catalytic activity/Vol] 110 U/L High <=31 [facility] Comment on above: Order Comment: 205 Performed By: #### L 501.2300, L500.4050, L501.5000, L3300.9910, L100.0500, L501.5200 ####[facility] [address] [place], [address] Bilirubin [Mass/Vol] 0.85 mg/dL Normal 0.00-1.30 [facility] Comment on above: Order Comment: 205 Performed By: #### L 501.2300, L500.4050, L501.5000, L3300.9910, L100.0500, L501.5200 ####[facility] [address] [place], [address] BUN/CRE 61.3 RATIO High 10-20 [facility] Comment on above: Order Comment: 205 Performed By: #### L 501.2300, L500.4050, L501.5000, L3300.9910, L100.0500, L501.5200 ####[facility] [address] [place], [address] Calcium [Mass/Vol] 8.8 mg/dL Normal 7.6-11.0 [facility] Comment on above: Order Comment: 205 Performed By: #### L 501.2300, L500.4050, L501.5000, L3300.9910, L100.0500, L501.5200 ####[facility] [address] [place], [address] Chloride [Moles/Vol] 103 mmol/L Normal 98-108 [facility] Comment on above: Order Comment: 205 Performed By: #### L 501.2300, L500.4050, L501.5000, L3300.9910, L100.0500, L501.5200 ####[facility] [address] [place], [address] CO2 [Moles/Vol] 22.6 mmol/L Normal 21.0-32.0 [facility] Comment on above: Order Comment: 205 Performed By: #### L 501.2300, L500.4050, L501.5000, L3300.9910, L100.0500, L501.5200 ####[facility] [address] [place], [address] Creatinine [Mass/Vol] 0.38 mg/dL Low 0.70-1.20 [facility] Comment on above: Order Comment: 205 Performed By: #### L 501.2300, L500.4050, L501.5000, L3300.9910, L100.0500, L501.5200 ####[facility] [address] [place], [address] GAP 10 Normal 5-15 [facility] Comment on above: Order Comment: 205 Performed By: #### L 501.2300, L500.4050, L501.5000, L3300.9910, L100.0500, L501.5200 ####[facility] [address] [place], [address] GFR/1.73 sq M.predicted among non-blacks MDRD (S/P/Bld) [Vol rate/Area] 108 mL/min/{1.73_m2} Normal >60 [facility] Comment on above: Order Comment: 205 Result Comment: mL/m in/1.73m2 CKD-EPI Creatinine Equation (2020) Performed By: #### L 501.2300, L500.4050, L501.5000, L3300.9910, L100.0500, L501.5200 ####[facility] [address] [place], [address] Globulin (S) [Mass/Vol] 2.9 g/dL Normal 2.2-4.2 [facility] Comment on above: Order Comment: 205 Performed By: #### L 501.2300, L500.4050, L501.5000, L3300.9910, L100.0500, L501.5200 ####[facility] [address] [place], [address] Glucose [Mass/Vol] 95 mg/dL Normal 70-99 [facility] Comment on above: Order Comment: 205 Performed By: #### L 501.2300, L500.4050, L501.5000, L3300.9910, L100.0500, L501.5200 ####[facility] [address] [place], [address] Potassium [Moles/Vol] 4.1 mmol/L Normal 3.3-5.1 [facility] Comment on above: Order Comment: 205 Performed By: #### L 501.2300, L500.4050, L501.5000, L3300.9910, L100.0500, L501.5200 ####[facility] [address] [place], [address] Sodium [Moles/Vol] 136 mmol/L Normal 133-145 [facility] Comment on above: Order Comment: 205 Performed By: #### L 501.2300, L500.4050, L501.5000, L3300.9910, L100.0500, L501.5200 ####[facility] [address] [place], [address] T PROT 5.6 g/dL Low 5.9-8.4 [facility] Comment on above: Order Comment: 205 Performed By: #### L 501.2300, L500.4050, L501.5000, L3300.9910, L100.0500, L501.5200 ####[facility] [address] [place], [address] Urea nitrogen [Mass/Vol] 23 mg/dL High 4-19 [facility] Comment on above: Order Comment: 205 Performed By: #### L 501.2300, L500.4050, L501.5000, L3300.9910, L100.0500, L501.5200 ####[facility] [address] [place], [address] Magnesiumon 10-16-2024 Magnesium [Mass/Vol] 2.0 mg/dL Normal 1.5-2.2 [facility] Comment on above: Order Comment: 205 Performed By: #### L 501.2300, L500.4050, L501.5000, L3300.9910, L100.0500, L501.5200 ####[facility] [address] [place], [address] Phosphoruson 10-16-2024 Phosphate [Mass/Vol] 4.2 mg/dL Normal 2.7-4.5 [facility] Comment on above: Order Comment: 205 Performed By: #### L 501.2300, L500.4050, L501.5000, L3300.9910, L100.0500, L501.5200 ####[facility] [address] [place], [address] Triglycerideson 10-16-2024 Triglyceride [Mass/Vol] 44 mg/dL Normal [facility] Comment on above: Order Comment: 205 Result Comment: The drugs N-Acetylcysteine and Metamizole may falselydepress this assay.Normal range: <150 mg/dLBorderline High: 150-199 mg/dLHigh: 200-499 mg/dLVery High: >500 mg/dL Performed By: #### L 501.2300, L500.4050, L501.5000, L3300.9910, L100.0500, L501.5200 ####[facility] [address] [place], [address] CBC-Complete Blood Cnt No Di ffon 10-12-2024 Erythrocyte distribution width (RBC) [Ratio] 17.1 % High 11.6-14.6 [facility] Comment on above: Order Comment: 205 Performed By: #### L 100.0500, L500.4050, L501.2300, L501.5200 ####[facility] [address] [place], [address] Hematocrit (Bld) [Volume fraction] 30.7 % Low 37-47 [facility] Comment on above: Order Comment: 205 Performed By: #### L 100.0500, L500.4050, L501.2300, L501.5200 ####[facility] [address] [place], [address] Hemoglobin (Bld) [Mass/Vol] 9.2 g/dL Low 12.0-15.0 [facility] Comment on above: Order Comment: 205 Performed By: #### L 100.0500, L500.4050, L501.2300, L501.5200 ####[facility] [address] [place], [address] MCH (RBC) [Entitic mass] 23.5 pg Low 27.0-32.0 [facility] Comment on above: Order Comment: 205 Performed By: #### L 100.0500, L500.4050, L501.2300, L501.5200 ####[facility] [address] [place], [address] MCHC (RBC) [Mass/Vol] 30.0 g/dL Low 32-36 [facility] Comment on above: Order Comment: 205 Performed By: #### L 100.0500, L500.4050, L501.2300, L501.5200 ####[facility] [address] [place], [address] MCV (RBC) [Entitic vol] 78.3 fL Low 81-99 [facility] Comment on above: Order Comment: 205 Performed By: #### L 100.0500, L500.4050, L501.2300, L501.5200 ####[facility] [address] [place], [address] Platelet mean volume (Bld) [Entitic vol] 9.1 fL Normal 6.2-12.0 [facility] Comment on above: Order Comment: 205 Performed By: #### L 100.0500, L500.4050, L501.2300, L501.5200 ####[facility] [address] [place], [address] Platelets (Bld) [#/Vol] 474 10*3/uL High 150-450 [facility] Comment on above: Order Comment: 205 Performed By: #### L 100.0500, L500.4050, L501.2300, L501.5200 ####[facility] [address] [place], [address] RBC (Bld) [#/Vol] 3.92 10*6/uL Low 4.2-5.4 [facility] Comment on above: Order Comment: 205 Performed By: #### L 100.0500, L500.4050, L501.2300, L501.5200 ####[facility] [address] [place], [address] RDW SD 47.8 fl High 35.1-43.9 [facility] Comment on above: Order Comment: 205 Performed By: #### L 100.0500, L500.4050, L501.2300, L501.5200 ####[facility] [address] [place], [address] WBC (Bld) [#/Vol] 9.4 10*3/uL Normal 4.4-11.0 [facility] Comment on above: Order Comment: 205 Performed By: #### L 100.0500, L500.4050, L501.2300, L501.5200 ####[facility] [address] [place], [address] Comprehensive Metabolic Prof mnon 10-12-2024 Albumin [Mass/Vol] 3.1 g/dL Low 3.4-4.8 [facility] Comment on above: Order Comment: 205 Performed By: #### L 100.0500, L500.4050, L501.2300, L501.5200 ####[facility] [address] [place], [address] Albumin/Globulin [Mass ratio] 1.0 {ratio} Normal 0.9-2.4 [facility] Comment on above: Order Comment: 205 Performed By: #### L 100.0500, L500.4050, L501.2300, L501.5200 ####[facility] [address] [place], [address] ALK PHOS 134 U/L High 35-104 [facility] Comment on above: Order Comment: 205 Performed By: #### L 100.0500, L500.4050, L501.2300, L501.5200 ####[facility] [address] [place], [address] ALT [Catalytic activity/Vol] 31 U/L Normal <=34 [facility] Comment on above: Order Comment: 205 Performed By: #### L 100.0500, L500.4050, L501.2300, L501.5200 ####[facility] [address] [place], [address] AST [Catalytic activity/Vol] 26 U/L Normal <=31 [facility] Comment on above: Order Comment: 205 Performed By: #### L 100.0500, L500.4050, L501.2300, L501.5200 ####[facility] [address] [place], [address] Bilirubin [Mass/Vol] 0.15 mg/dL Normal 0.00-1.30 [facility] Comment on above: Order Comment: 205 Performed By: #### L 100.0500, L500.4050, L501.2300, L501.5200 ####[facility] [address] [place], [address] BUN/CRE 65.7 RATIO High 10-20 [facility] Comment on above: Order Comment: 205 Performed By: #### L 100.0500, L500.4050, L501.2300, L501.5200 ####[facility] [address] [place], [address] Calcium [Mass/Vol] 8.8 mg/dL Normal 7.6-11.0 [facility] Comment on above: Order Comment: 205 Performed By: #### L 100.0500, L500.4050, L501.2300, L501.5200 ####[facility] [address] [place], [address] Chloride [Moles/Vol] 101 mmol/L Normal 98-108 [facility] Comment on above: Order Comment: 205 Performed By: #### L 100.0500, L500.4050, L501.2300, L501.5200 ####[facility] [address] [place], [address] CO2 [Moles/Vol] 28.2 mmol/L Normal 21.0-32.0 [facility] Comment on above: Order Comment: 205 Performed By: #### L 100.0500, L500.4050, L501.2300, L501.5200 ####[facility] [address] [place], [address] Creatinine [Mass/Vol] 0.30 mg/dL Low 0.70-1.20 [facility] Comment on above: Order Comment: 205 Performed By: #### L 100.0500, L500.4050, L501.2300, L501.5200 ####[facility] [address] [place], [address] GAP 9 Normal 5-15 [facility] Comment on above: Order Comment: 205 Performed By: #### L 100.0500, L500.4050, L501.2300, L501.5200 ####[facility] [address] [place], [address] GFR/1.73 sq M.predicted among non-blacks MDRD (S/P/Bld) [Vol rate/Area] 114 mL/min/{1.73_m2} Normal >60 [facility] Comment on above: Order Comment: 205 Result Comment: mL/m in/1.73m2 CKD-EPI Creatinine Equation (2020) Performed By: #### L 100.0500, L500.4050, L501.2300, L501.5200 ####[facility] [address] [place], [address] Globulin (S) [Mass/Vol] 3.2 g/dL Normal 2.2-4.2 [facility] Comment on above: Order Comment: 205 Performed By: #### L 100.0500, L500.4050, L501.2300, L501.5200 ####[facility] [address] [place], [address] Glucose [Mass/Vol] 107 mg/dL High 70-99 [facility] Comment on above: Order Comment: 205 Performed By: #### L 100.0500, L500.4050, L501.2300, L501.5200 ####[facility] [address] [place], [address] Potassium [Moles/Vol] 4.2 mmol/L Normal 3.3-5.1 [facility] Comment on above: Order Comment: 205 Performed By: #### L 100.0500, L500.4050, L501.2300, L501.5200 ####[facility] [address] [place], [address] Sodium [Moles/Vol] 138 mmol/L Normal 133-145 [facility] Comment on above: Order Comment: 205 Performed By: #### L 100.0500, L500.4050, L501.2300, L501.5200 ####[facility] [address] [place], [address] T PROT 6.3 g/dL Normal 5.9-8.4 [facility] Comment on above: Order Comment: 205 Performed By: #### L 100.0500, L500.4050, L501.2300, L501.5200 ####[facility] [address] [place], [address] Urea nitrogen [Mass/Vol] 20 mg/dL High 4-19 [facility] Comment on above: Order Comment: 205 Performed By: #### L 100.0500, L500.4050, L501.2300, L501.5200 ####[facility] [facility] [address] [place], [address] Magnesiumon 10-12-2024 Magnesium [Mass/Vol] 2.0 mg/dL Normal 1.5-2.2 [facility] Comment on above: Order Comment: 205 Performed By: #### L 100.0500, L500.4050, L501.2300, L501.5200 ####[facility] [address] [place], [place], [address] Phosphoruson 10-12-2024 Phosphate [Mass/Vol] 4.5 mg/dL Normal 2.7-4.5 [facility] Comment on above: Order Comment: 205 Performed By: #### L 100.0500, L500.4050, L501.2300, L501.5200 ####[facility] [address] [place], [place], [address] Zinc, Plasma or Serumon 09-28 ZINC,PLASMA/SER 55 ug/dL Normal 44-115 [facility] Comment on above: Order Comment: Test( s) 295322-[id number], Plasma or Serumwas developed and its performance characteristicsdetermined by [employer]. It has not been cleared or approvedby the Food and Drug Administration. Result Comment: Dete ction Limit = 5Performed at: [facility] [address]My[address] [id number] Director: Elvie Fry MD, Phone: [phone] Performed By: #### L 3300.9900, L501.2300, L500.4050, L501.5000, L501.5200, L100.0500 ####[facility] [address] [place], [place], [id number] CBC-Complete Blood Cnt No Di ffon 10-09-2024 Erythrocyte distribution width (RBC) [Ratio] 17.2 % High 11.6-14.6 [facility] Comment on above: Order Comment: 205.1 Performed By: #### L 3300.9900, L501.2300, L500.4050, L501.5000, L501.5200, L100.0500 ####[facility] [address] [place], [place], [id number] Hematocrit (Bld) [Volume fraction] 30.1 % Low 37-47 [facility] Comment on above: Order Comment: 205.1 Performed By: #### L 3300.9900, L501.2300, L500.4050, L501.5000, L501.5200, L100.0500 ####[facility] [address] [place], [address] Hemoglobin (Bld) [Mass/Vol] 9.3 g/dL Low 12.0-15.0 [facility] Comment on above: Order Comment: . Performed By: #### L 3300.9900, L501.2300, L500.4050, L501.5000, L501.5200, L100.0500 ####[facility] [address] [place], [address] MCH (RBC) [Entitic mass] 24.1 pg Low 27.0-32.0 [facility] Comment on above: Order Comment: . Performed By: #### L 3300.9900, L501.2300, L500.4050, L501.5000, L501.5200, L100.0500 ####[facility] [address] [place], [address] MCHC (RBC) [Mass/Vol] 30.9 g/dL Low 32-36 [facility] Comment on above: Order Comment: . Performed By: #### L 3300.9900, L501.2300, L500.4050, L501.5000, L501.5200, L100.0500 ####[facility] [address] [place], [address] MCV (RBC) [Entitic vol] 78.0 fL Low 81-99 [facility] Comment on above: Order Comment: . Performed By: #### L 3300.9900, L501.2300, L500.4050, L501.5000, L501.5200, L100.0500 ####[facility] [address] [place], [address] Platelet mean volume (Bld) [Entitic vol] 9.3 fL Normal 6.2-12.0 [facility] Comment on above: Order Comment: .1 Performed By: #### L 3300.9900, L501.2300, L500.4050, L501.5000, L501.5200, L100.0500 ####[facility] [address] [place], [address] Platelets (Bld) [#/Vol] 515 10*3/uL High 150-450 [facility] Comment on above: Order Comment: .1 Performed By: #### L 3300.9900, L501.2300, L500.4050, L501.5000, L501.5200, L100.0500 ####[facility] [address] [place], [address] RBC (Bld) [#/Vol] 3.86 10*6/uL Low 4.2-5.4 [facility] Comment on above: Order Comment: . Performed By: #### L 3300.9900, L501.2300, L500.4050, L501.5000, L501.5200, L100.0500 ####[facility] [address] [place], [address] RDW SD 48.1 fl High 35.1-43.9 [facility] Comment on above: Order Comment: .1 Performed By: #### L 3300.9900, L501.2300, L500.4050, L501.5000, L501.5200, L100.0500 ####[facility] [address] [place], [address] WBC (Bld) [#/Vol] 9.8 10*3/uL Normal 4.4-11.0 [facility] Comment on above: Order Comment: .1 Performed By: #### L 3300.9900, L501.2300, L500.4050, L501.5000, L501.5200, L100.0500 ####[facility] [address] [place], [address] Comprehensive Metabolic Prof ilon 10-09-2024 Albumin [Mass/Vol] 3.0 g/dL Low 3.4-4.8 [facility] Comment on above: Order Comment: .1 Performed By: #### L 3300.9900, L501.2300, L500.4050, L501.5000, L501.5200, L100.0500 ####[facility] [address] [place], [address] Albumin/Globulin [Mass ratio] 1.0 {ratio} Normal 0.9-2.4 [facility] Comment on above: Order Comment: . Performed By: #### L 3300.9900, L501.2300, L500.4050, L501.5000, L501.5200, L100.0500 ####[facility] [address] [place], [address] ALK PHOS 140 U/L High 35-104 [facility] Comment on above: Order Comment: . Performed By: #### L 3300.9900, L501.2300, L500.4050, L501.5000, L501.5200, L100.0500 ####[facility] [address] [place], [address] ALT [Catalytic activity/Vol] 31 U/L Normal <=34 [facility] Comment on above: Order Comment: . Performed By: #### L 3300.9900, L501.2300, L500.4050, L501.5000, L501.5200, L100.0500 ####[facility] [address] [place], [address] AST [Catalytic activity/Vol] 26 U/L Normal <=31 [facility] Comment on above: Order Comment: .1 Performed By: #### L 3300.9900, L501.2300, L500.4050, L501.5000, L501.5200, L100.0500 ####[facility] [address] [place], [address] BUN/CRE 64.5 RATIO High 10-20 [facility] Comment on above: Order Comment: 205.1 Performed By: #### L 3300.9900, L501.2300, L500.4050, L501.5000, L501.5200, L100.0500 ####[facility] [address] [place], [address] Calcium [Mass/Vol] 8.6 mg/dL Normal 7.6-11.0 [facility] Comment on above: Order Comment: .1 Performed By: #### L 3300.9900, L501.2300, L500.4050, L501.5000, L501.5200, L100.0500 ####[facility] [address] [place], [address] Chloride [Moles/Vol] 100 mmol/L Normal 98-108 [facility] Comment on above: Order Comment: .1 Performed By: #### L 3300.9900, L501.2300, L500.4050, L501.5000, L501.5200, L100.0500 ####[facility] [address] [place], [address] CO2 [Moles/Vol] 27.5 mmol/L Normal 21.0-32.0 [facility] Comment on above: Order Comment: .1 Performed By: #### L 3300.9900, L501.2300, L500.4050, L501.5000, L501.5200, L100.0500 ####[facility] [address] [place], [address] Creatinine [Mass/Vol] 0.31 mg/dL Low 0.70-1.20 [facility] Comment on above: Order Comment: 205.1 Performed By: #### L 3300.9900, L501.2300, L500.4050, L501.5000, L501.5200, L100.0500 ####[facility] [address] [place], [address] GAP 10 Normal 5-15 [facility] Comment on above: Order Comment: .1 Performed By: #### L 3300.9900, L501.2300, L500.4050, L501.5000, L501.5200, L100.0500 ####[facility] [address] [place], [address] GFR/1.73 sq M.predicted among non-blacks MDRD (S/P/Bld) [Vol rate/Area] 114 mL/min/{1.73_m2} Normal >60 [facility] Comment on above: Order Comment: . Result Comment: mL/m in/1.73m2 CKD-EPI Creatinine Equation (2020) Performed By: #### L 3300.9900, L501.2300, L500.4050, L501.5000, L501.5200, L100.0500 ####[facility] [address] [place], [address] Globulin (S) [Mass/Vol] 3.2 g/dL Normal 2.2-4.2 [facility] Comment on above: Order Comment: . Performed By: #### L 3300.9900, L501.2300, L500.4050, L501.5000, L501.5200, L100.0500 ####[facility] [address] [place], [address] Glucose [Mass/Vol] 110 mg/dL High 70-99 [facility] Comment on above: Order Comment: . Performed By: #### L 3300.9900, L501.2300, L500.4050, L501.5000, L501.5200, L100.0500 ####[facility] [address] [place], [address] Potassium [Moles/Vol] 4.5 mmol/L Normal 3.3-5.1 [facility] Comment on above: Order Comment: 205.1 Performed By: #### L 3300.9900, L501.2300, L500.4050, L501.5000, L501.5200, L100.0500 ####[facility] [address] [place], [address] Sodium [Moles/Vol] 137 mmol/L Normal 133-145 [facility] Comment on above: Order Comment: . Performed By: #### L 3300.9900, L501.2300, L500.4050, L501.5000, L501.5200, L100.0500 ####[facility] [address] [place], [address] T BILI < 0.15 Normal 0.00-1.30 [facility] Comment on above: Order Comment: .1 Performed By: #### L 3300.9900, L501.2300, L500.4050, L501.5000, L501.5200, L100.0500 ####[facility] [address] [place], [address] T PROT 6.2 g/dL Normal 5.9-8.4 [facility] Comment on above: Order Comment: .1 Performed By: #### L 3300.9900, L501.2300, L500.4050, L501.5000, L501.5200, L100.0500 ####[facility] [address] [place], [address] Urea nitrogen [Mass/Vol] 20 mg/dL High 4-19 [facility] Comment on above: Order Comment: 205.1 Performed By: #### L 3300.9900, L501.2300, L500.4050, L501.5000, L501.5200, L100.0500 ####[facility] [address] [place], [place], [address] Magnesiumon 10-09-2024 Magnesium [Mass/Vol] 2.1 mg/dL Normal 1.5-2.2 [facility] Comment on above: Order Comment: 205. Performed By: #### L 3300.9900, L501.2300, L500.4050, L501.5000, L501.5200, L100.0500 ####[facility] [address] [place], [address] Phosphoruson 10-09-2024 Phosphate [Mass/Vol] 3.8 mg/dL Normal 2.7-4.5 [facility] Comment on above: Order Comment: . Performed By: #### L 3300.9900, L501.2300, L500.4050, L501.5000, L501.5200, L100.0500 ####[facility] [address] [place], [place], [address] Triglycerideson 10-09-2024 Triglyceride [Mass/Vol] 50 mg/dL Normal [facility] Comment on above: Order Comment: . Result Comment: The drugs N-Acetylcysteine and Metamizole may falselydepress this assay.Normal range: <150 mg/dLBorderline High: 150-199 mg/dLHigh: 200-499 mg/dLVery High: >500 mg/dL Performed By: #### L 3300.9900, L501.2300, L500.4050, L501.5000, L501.5200, L100.0500 ####[facility] [address] [place], [place], [address] CBC-Complete Blood Cnt No Di ffon 10-06-2024 Erythrocyte distribution width (RBC) [Ratio] 17.3 % High 11.6-14.6 [facility] Comment on above: Order Comment: 205- Performed By: #### L 501.2300, L501.5000, L100.0500, L501.5200, L500.4050 ####[facility] [address] [place], [address] Hematocrit (Bld) [Volume fraction] 30.2 % Low 37-47 [facility] Comment on above: Order Comment: Performed By: #### L 501.2300, L501.5000, L100.0500, L501.5200, L500.4050 ####[facility] [address] [place], [address] Hemoglobin (Bld) [Mass/Vol] 9.3 g/dL Low 12.0-15.0 [facility] Comment on above: Order Comment: Performed By: #### L 501.2300, L501.5000, L100.0500, L501.5200, L500.4050 ####[facility] [address] [place], [address] MCH (RBC) [Entitic mass] 24.2 pg Low 27.0-32.0 [facility] Comment on above: Order Comment: Performed By: #### L 501.2300, L501.5000, L100.0500, L501.5200, L500.4050 ####[facility] [address] [place], [address] MCHC (RBC) [Mass/Vol] 30.8 g/dL Low 32-36 [facility] Comment on above: Order Comment: Performed By: #### L 501.2300, L501.5000, L100.0500, L501.5200, L500.4050 ####[facility] [address] [place], [address] MCV (RBC) [Entitic vol] 78.6 fL Low 81-99 [facility] Comment on above: Order Comment: Performed By: #### L 501.2300, L501.5000, L100.0500, L501.5200, L500.4050 ####[facility] [address] [place], [address] Platelet mean volume (Bld) [Entitic vol] 9.2 fL Normal 6.2-12.0 [facility] Comment on above: Order Comment: Performed By: #### L 501.2300, L501.5000, L100.0500, L501.5200, L500.4050 ####[facility] [address] [place], [address] Platelets (Bld) [#/Vol] 525 10*3/uL High 150-450 [facility] Comment on above: Order Comment: Performed By: #### L 501.2300, L501.5000, L100.0500, L501.5200, L500.4050 ####[facility] [address] [place], [address] RBC (Bld) [#/Vol] 3.84 10*6/uL Low 4.2-5.4 [facility] Comment on above: Order Comment: Performed By: #### L 501.2300, L501.5000, L100.0500, L501.5200, L500.4050 ####[facility] [address] [place], [address] RDW SD 48.4 fl High 35.1-43.9 [facility] Comment on above: Order Comment: Performed By: #### L 501.2300, L501.5000, L100.0500, L501.5200, L500.4050 ####[facility] [address] [place], [address] WBC (Bld) [#/Vol] 13.9 10*3/uL High 4.4-11.0 [facility] Comment on above: Order Comment: Performed By: #### L 501.2300, L501.5000, L100.0500, L501.5200, L500.4050 ####[facility] [address] [place], [address] Comprehensive Metabolic Prof ilon 10-06-2024 Albumin [Mass/Vol] 3.1 g/dL Low 3.4-4.8 [facility] Comment on above: Order Comment: Performed By: #### L 501.2300, L501.5000, L100.0500, L501.5200, L500.4050 ####[facility] [address] [place], [address] Albumin/Globulin [Mass ratio] 1.0 {ratio} Normal 0.9-2.4 [facility] Comment on above: Order Comment: Performed By: #### L 501.2300, L501.5000, L100.0500, L501.5200, L500.4050 ####[facility] [address] [place], [address] ALK PHOS 150 U/L High 35-104 [facility] Comment on above: Order Comment: Performed By: #### L 501.2300, L501.5000, L100.0500, L501.5200, L500.4050 ####[facility] [address] [place], [address] ALT [Catalytic activity/Vol] 34 U/L Normal <=34 [facility] Comment on above: Order Comment: Performed By: #### L 501.2300, L501.5000, L100.0500, L501.5200, L500.4050 ####[facility] [address] [place], [address] AST [Catalytic activity/Vol] 25 U/L Normal <=31 [facility] Comment on above: Order Comment: - Performed By: #### L 501.2300, L501.5000, L100.0500, L501.5200, L500.4050 ####[facility] [address] [place], [address] Bilirubin [Mass/Vol] 0.17 mg/dL Normal 0.00-1.30 [facility] Comment on above: Order Comment: Performed By: #### L 501.2300, L501.5000, L100.0500, L501.5200, L500.4050 ####[facility] [address] [place], [address] BUN/CRE 49.3 RATIO High 10-20 [facility] Comment on above: Order Comment: Performed By: #### L 501.2300, L501.5000, L100.0500, L501.5200, L500.4050 ####[facility] [address] [place], [address] Calcium [Mass/Vol] 8.8 mg/dL Normal 7.6-11.0 [facility] Comment on above: Order Comment: Performed By: #### L 501.2300, L501.5000, L100.0500, L501.5200, L500.4050 ####[facility] [address] [place], [address] Chloride [Moles/Vol] 99 mmol/L Normal 98-108 [facility] Comment on above: Order Comment: Performed By: #### L 501.2300, L501.5000, L100.0500, L501.5200, L500.4050 ####[facility] [address] [place], [address] CO2 [Moles/Vol] 28.2 mmol/L Normal 21.0-32.0 [facility] Comment on above: Order Comment: Performed By: #### L 501.2300, L501.5000, L100.0500, L501.5200, L500.4050 ####[facility] [address] [place], [address] Creatinine [Mass/Vol] 0.38 mg/dL Low 0.70-1.20 [facility] Comment on above: Order Comment: Performed By: #### L 501.2300, L501.5000, L100.0500, L501.5200, L500.4050 ####[facility] [address] [place], [address] GAP 10 Normal 5-15 [facility] Comment on above: Order Comment: Performed By: #### L 501.2300, L501.5000, L100.0500, L501.5200, L500.4050 ####[facility] [address] [place], [address] GFR/1.73 sq M.predicted among non-blacks MDRD (S/P/Bld) [Vol rate/Area] 108 mL/min/{1.73_m2} Normal >60 [facility] Comment on above: Order Comment: Result Comment: mL/m in/1.73m2 CKD-EPI Creatinine Equation (2020) Performed By: #### L 501.2300, L501.5000, L100.0500, L501.5200, L500.4050 ####[facility] [address] [place], [address] Globulin (S) [Mass/Vol] 3.0 g/dL Normal 2.2-4.2 [facility] Comment on above: Order Comment: Performed By: #### L 501.2300, L501.5000, L100.0500, L501.5200, L500.4050 ####[facility] [address] [place], [address] Glucose [Mass/Vol] 116 mg/dL High 70-99 [facility] Comment on above: Order Comment: Performed By: #### L 501.2300, L501.5000, L100.0500, L501.5200, L500.4050 ####[facility] [address] [place], [address] Potassium [Moles/Vol] 4.7 mmol/L Normal 3.3-5.1 [facility] Comment on above: Order Comment: Performed By: #### L 501.2300, L501.5000, L100.0500, L501.5200, L500.4050 ####[facility] [address] [place], [address] Sodium [Moles/Vol] 137 mmol/L Normal 133-145 [facility] Comment on above: Order Comment: Performed By: #### L 501.2300, L501.5000, L100.0500, L501.5200, L500.4050 ####[facility] [address] [place], [address] T PROT 6.1 g/dL Normal 5.9-8.4 [facility] Comment on above: Order Comment: Performed By: #### L 501.2300, L501.5000, L100.0500, L501.5200, L500.4050 ####[facility] [address] [place], [address] Urea nitrogen [Mass/Vol] 19 mg/dL Normal 4-19 [facility] Comment on above: Order Comment: Performed By: #### L 501.2300, L501.5000, L100.0500, L501.5200, L500.4050 ####[facility] [address] [place], [address] Magnesiumon 10-06-2024 Magnesium [Mass/Vol] 2.1 mg/dL Normal 1.5-2.2 [facility] Comment on above: Order Comment: Performed By: #### L 501.2300, L501.5000, L100.0500, L501.5200, L500.4050 ####[facility] [address] [place], [address] Phosphoruson 10-06-2024 Phosphate [Mass/Vol] 4.4 mg/dL Normal 2.7-4.5 [facility] Comment on above: Order Comment: Performed By: #### L 501.2300, L501.5000, L100.0500, L501.5200, L500.4050 ####[facility] [address] [place], [address] Triglycerideson 10-06-2024 Triglyceride [Mass/Vol] 46 mg/dL Normal [facility] Comment on above: Order Comment: Result Comment: The drugs N-Acetylcysteine and Metamizole may falselydepress this assay.Normal range: <150 mg/dLBorderline High: 150-199 mg/dLHigh: 200-499 mg/dLVery High: >500 mg/dL Performed By: #### L 501.2300, L501.5000, L100.0500, L501.5200, L500.4050 ####[facility] [address] [place], [place], [address] Zinc, Plasma or Serumon ZINC,PLASMA/SER 66 ug/dL Normal 44-115 [facility] Comment on above: Order Comment: Test( s) [id number], Plasma or Serumwas developed and its performance characteristicsdetermined by [employer]. It has not been cleared or approvedby the Food and Drug Administration. Result Comment: Dete ction Limit = 5Performed at: [facility] [address] [id number] Director: Elvie Fry MD, Phone: [phone] Performed By: #### L 500.4050, L100.0500, L501.2300, L3300.9900, L501.5000, L501.5200 ####[facility] [address] [place], [address] CBC-Complete Blood Cnt No Di ffon 10-04-2024 Erythrocyte distribution width (RBC) [Ratio] 17.3 % High 11.6-14.6 [facility] Comment on above: Order Comment: 205 Performed By: #### L 501.5000, L501.2300, L501.5200, L500.4050, L100.0500 ####[facility] [address] [place], [address] Hematocrit (Bld) [Volume fraction] 31.2 % Low 37-47 [facility] Comment on above: Order Comment: 205 Performed By: #### L 501.5000, L501.2300, L501.5200, L500.4050, L100.0500 ####[facility] [address] [place], [address] Hemoglobin (Bld) [Mass/Vol] 9.6 g/dL Low 12.0-15.0 [facility] Comment on above: Order Comment: 205 Performed By: #### L 501.5000, L501.2300, L501.5200, L500.4050, L100.0500 ####[facility] [address] [place], [address] MCH (RBC) [Entitic mass] 23.9 pg Low 27.0-32.0 [facility] Comment on above: Order Comment: 205 Performed By: #### L 501.5000, L501.2300, L501.5200, L500.4050, L100.0500 ####[facility] [address] [place], [address] MCHC (RBC) [Mass/Vol] 30.8 g/dL Low 32-36 [facility] Comment on above: Order Comment: 205 Performed By: #### L 501.5000, L501.2300, L501.5200, L500.4050, L100.0500 ####[facility] [address] [place], [address] MCV (RBC) [Entitic vol] 77.6 fL Low 81-99 [facility] Comment on above: Order Comment: 205 Performed By: #### L 501.5000, L501.2300, L501.5200, L500.4050, L100.0500 ####[facility] [address] [place], [address] Platelet mean volume (Bld) [Entitic vol] 9.1 fL Normal 6.2-12.0 [facility] Comment on above: Order Comment: 205 Performed By: #### L 501.5000, L501.2300, L501.5200, L500.4050, L100.0500 ####[facility] [address] [place], [address] Platelets (Bld) [#/Vol] 550 10*3/uL High 150-450 [facility] Comment on above: Order Comment: 205 Performed By: #### L 501.5000, L501.2300, L501.5200, L500.4050, L100.0500 ####[facility] [address] [place], [address] RBC (Bld) [#/Vol] 4.02 10*6/uL Low 4.2-5.4 [facility] Comment on above: Order Comment: 205 Performed By: #### L 501.5000, L501.2300, L501.5200, L500.4050, L100.0500 ####[facility] [address] [place], [address] RDW SD 47.6 fl High 35.1-43.9 [facility] Comment on above: Order Comment: 205 Performed By: #### L 501.5000, L501.2300, L501.5200, L500.4050, L100.0500 ####[facility] [address] [place], [address] WBC (Bld) [#/Vol] 9.6 10*3/uL Normal 4.4-11.0 [facility] Comment on above: Order Comment: 205 Performed By: #### L 501.5000, L501.2300, L501.5200, L500.4050, L100.0500 ####[facility] [address] [place], [address] Comprehensive Metabolic Prof mnon 10-04-2024 Albumin [Mass/Vol] 3.1 g/dL Low 3.4-4.8 [facility] Comment on above: Order Comment: 205 Performed By: #### L 501.5000, L501.2300, L501.5200, L500.4050, L100.0500 ####[facility] [address] [place], [address] Albumin/Globulin [Mass ratio] 0.9 {ratio} Normal 0.9-2.4 [facility] Comment on above: Order Comment: 205 Performed By: #### L 501.5000, L501.2300, L501.5200, L500.4050, L100.0500 ####[facility] [address] [place], [address] ALK PHOS 170 U/L High 35-104 [facility] Comment on above: Order Comment: 205 Performed By: #### L 501.5000, L501.2300, L501.5200, L500.4050, L100.0500 ####[facility] [address] [place], [address] ALT [Catalytic activity/Vol] 58 U/L High <=34 [facility] Comment on above: Order Comment: 205 Performed By: #### L 501.5000, L501.2300, L501.5200, L500.4050, L100.0500 ####[facility] [address], [address] AST [Catalytic activity/Vol] 45 U/L High <=31 [facility] Comment on above: Order Comment: 205 Performed By: #### L 501.5000, L501.2300, L501.5200, L500.4050, L100.0500 ####[facility] [address] [place], [address] Bilirubin [Mass/Vol] 0.17 mg/dL Normal 0.00-1.30 [facility] Comment on above: Order Comment: 205 Performed By: #### L 501.5000, L501.2300, L501.5200, L500.4050, L100.0500 ####[facility] [address] [place], [address] BUN/CRE 46.7 RATIO High 10-20 [facility] Comment on above: Order Comment: 205 Performed By: #### L 501.5000, L501.2300, L501.5200, L500.4050, L100.0500 ####[facility] [address] [place], [address] Calcium [Mass/Vol] 8.9 mg/dL Normal 7.6-11.0 [facility] Comment on above: Order Comment: 205 Performed By: #### L 501.5000, L501.2300, L501.5200, L500.4050, L100.0500 ####[facility] [address] [place], [address] Chloride [Moles/Vol] 100 mmol/L Normal 98-108 [facility] Comment on above: Order Comment: 205 Performed By: #### L 501.5000, L501.2300, L501.5200, L500.4050, L100.0500 ####[facility] [address] [place], [address] CO2 [Moles/Vol] 26.4 mmol/L Normal 21.0-32.0 [facility] Comment on above: Order Comment: 205 Performed By: #### L 501.5000, L501.2300, L501.5200, L500.4050, L100.0500 ####[facility] [address] [place], [address] Creatinine [Mass/Vol] 0.37 mg/dL Low 0.70-1.20 [facility] Comment on above: Order Comment: 205 Performed By: #### L 501.5000, L501.2300, L501.5200, L500.4050, L100.0500 ####[facility] [address] [place], [address] GAP 10 Normal 5-15 [facility] Comment on above: Order Comment: 205 Performed By: #### L 501.5000, L501.2300, L501.5200, L500.4050, L100.0500 ####[facility] [address] [place], [address] GFR/1.73 sq M.predicted among non-blacks MDRD (S/P/Bld) [Vol rate/Area] 109 mL/min/{1.73_m2} Normal >60 [facility] Comment on above: Order Comment: 205 Result Comment: mL/m in/1.73m2 CKD-EPI Creatinine Equation (2020) Performed By: #### L 501.5000, L501.2300, L501.5200, L500.4050, L100.0500 ####[facility] [address] [place], [address] Globulin (S) [Mass/Vol] 3.3 g/dL Normal 2.2-4.2 [facility] Comment on above: Order Comment: 205 Performed By: #### L 501.5000, L501.2300, L501.5200, L500.4050, L100.0500 ####[facility] [address] [place], [address] Glucose [Mass/Vol] 100 mg/dL High 70-99 [facility] Comment on above: Order Comment: 205 Performed By: #### L 501.5000, L501.2300, L501.5200, L500.4050, L100.0500 ####[facility] [address] [place], [address] Potassium [Moles/Vol] 4.7 mmol/L Normal 3.3-5.1 [facility] Comment on above: Order Comment: 205 Performed By: #### L 501.5000, L501.2300, L501.5200, L500.4050, L100.0500 ####[facility] [address] [place], [address] Sodium [Moles/Vol] 137 mmol/L Normal 133-145 [facility] Comment on above: Order Comment: 205 Performed By: #### L 501.5000, L501.2300, L501.5200, L500.4050, L100.0500 ####[facility] [address] [place], [address] T PROT 6.4 g/dL Normal 5.9-8.4 [facility] Comment on above: Order Comment: 205 Performed By: #### L 501.5000, L501.2300, L501.5200, L500.4050, L100.0500 ####[facility] [address] [place], [address] Urea nitrogen [Mass/Vol] 17 mg/dL Normal 4-19 [facility] Comment on above: Order Comment: 205 Performed By: #### L 501.5000, L501.2300, L501.5200, L500.4050, L100.0500 ####[facility] [address] [place], [address] Magnesiumon 10-04-2024 Magnesium [Mass/Vol] 2.1 mg/dL Normal 1.5-2.2 [facility] Comment on above: Order Comment: 205 Performed By: #### L 501.5000, L501.2300, L501.5200, L500.4050, L100.0500 ####[facility] [address] [place], [address] Phosphoruson 10-04-2024 Phosphate [Mass/Vol] 4.3 mg/dL Normal 2.7-4.5 [facility] Comment on above: Order Comment: 205 Performed By: #### L 501.5000, L501.2300, L501.5200, L500.4050, L100.0500 ####[facility] [address] [place], [address] Triglycerideson 10-04-2024 Triglyceride [Mass/Vol] 45 mg/dL Normal [facility] Comment on above: Order Comment: 205 Result Comment: The drugs N-Acetylcysteine and Metamizole may falselydepress this assay.Normal range: <150 mg/dLBorderline High: 150-199 mg/dLHigh: 200-499 mg/dLVery High: >500 mg/dL Performed By: #### L 501.5000, L501.2300, L501.5200, L500.4050, L100.0500 ####[facility] [address] [place], [address] CBC-Complete Blood Cnt No Di ffon 10-02-2024 Erythrocyte distribution width (RBC) [Ratio] 17.6 % High 11.6-14.6 [facility] Comment on above: Order Comment: 205.1 Performed By: #### L 500.4050, L100.0500, L501.2300, L3300.9900, L501.5000, L501.5200 ####[facility] [address] [place], [address] Hematocrit (Bld) [Volume fraction] 31.1 % Low 37-47 [facility] Comment on above: Order Comment: 205.1 Performed By: #### L 500.4050, L100.0500, L501.2300, L3300.9900, L501.5000, L501.5200 ####[facility] [address] [place], [address] Hemoglobin (Bld) [Mass/Vol] 9.9 g/dL Low 12.0-15.0 [facility] Comment on above: Order Comment: .1 Performed By: #### L 500.4050, L100.0500, L501.2300, L3300.9900, L501.5000, L501.5200 ####[facility] [address] [place], [address] MCH (RBC) [Entitic mass] 24.7 pg Low 27.0-32.0 [facility] Comment on above: Order Comment: .1 Performed By: #### L 500.4050, L100.0500, L501.2300, L3300.9900, L501.5000, L501.5200 ####[facility] [address] [place], [address] MCHC (RBC) [Mass/Vol] 31.8 g/dL Low 32-36 [facility] Comment on above: Order Comment: 205.1 Performed By: #### L 500.4050, L100.0500, L501.2300, L3300.9900, L501.5000, L501.5200 ####[facility] [address] [place], [address] MCV (RBC) [Entitic vol] 77.6 fL Low 81-99 [facility] Comment on above: Order Comment: 205.1 Performed By: #### L 500.4050, L100.0500, L501.2300, L3300.9900, L501.5000, L501.5200 ####[facility] [address] [place], [address] Platelet mean volume (Bld) [Entitic vol] 9.4 fL Normal 6.2-12.0 [facility] Comment on above: Order Comment: . Performed By: #### L 500.4050, L100.0500, L501.2300, L3300.9900, L501.5000, L501.5200 ####[facility] [address] [place], [address] Platelets (Bld) [#/Vol] 549 10*3/uL High 150-450 [facility] Comment on above: Order Comment: . Performed By: #### L 500.4050, L100.0500, L501.2300, L3300.9900, L501.5000, L501.5200 ####[facility] [address] [place], [address] RBC (Bld) [#/Vol] 4.01 10*6/uL Low 4.2-5.4 [facility] Comment on above: Order Comment: . Performed By: #### L 500.4050, L100.0500, L501.2300, L3300.9900, L501.5000, L501.5200 ####[facility] [address] [place], [address] RDW SD 48.0 fl High 35.1-43.9 [facility] Comment on above: Order Comment: . Performed By: #### L 500.4050, L100.0500, L501.2300, L3300.9900, L501.5000, L501.5200 ####[facility] [address] [place], [address] WBC (Bld) [#/Vol] 9.5 10*3/uL Normal 4.4-11.0 [facility] Comment on above: Order Comment: .1 Performed By: #### L 500.4050, L100.0500, L501.2300, L3300.9900, L501.5000, L501.5200 ####[facility] [address] [place], [address] Comprehensive Metabolic Prof ilon 10-02-2024 Albumin [Mass/Vol] 3.1 g/dL Low 3.4-4.8 [facility] Comment on above: Order Comment: .1 Performed By: #### L 500.4050, L100.0500, L501.2300, L3300.9900, L501.5000, L501.5200 ####[facility] [address] [place], [address] Albumin/Globulin [Mass ratio] 1.0 {ratio} Normal 0.9-2.4 [facility] Comment on above: Order Comment: . Performed By: #### L 500.4050, L100.0500, L501.2300, L3300.9900, L501.5000, L501.5200 ####[facility] [address] [place], [address] ALK PHOS 167 U/L High 35-104 [facility] Comment on above: Order Comment: .1 Performed By: #### L 500.4050, L100.0500, L501.2300, L3300.9900, L501.5000, L501.5200 ####[facility] [address] [place], [address] ALT [Catalytic activity/Vol] 40 U/L High <=34 [facility] Comment on above: Order Comment: .1 Performed By: #### L 500.4050, L100.0500, L501.2300, L3300.9900, L501.5000, L501.5200 ####[facility] [address] [place], [address] AST [Catalytic activity/Vol] 34 U/L High <=31 [facility] Comment on above: Order Comment: 205.1 Performed By: #### L 500.4050, L100.0500, L501.2300, L3300.9900, L501.5000, L501.5200 ####[facility] [address] [place], [address] BUN/CRE 44.7 RATIO High 10-20 [facility] Comment on above: Order Comment: .1 Performed By: #### L 500.4050, L100.0500, L501.2300, L3300.9900, L501.5000, L501.5200 ####[facility] [address] [place], [address] Calcium [Mass/Vol] 8.7 mg/dL Normal 7.6-11.0 [facility] Comment on above: Order Comment: .1 Performed By: #### L 500.4050, L100.0500, L501.2300, L3300.9900, L501.5000, L501.5200 ####[facility] [address] [place], [address] Chloride [Moles/Vol] 100 mmol/L Normal 98-108 [facility] Comment on above: Order Comment: .1 Performed By: #### L 500.4050, L100.0500, L501.2300, L3300.9900, L501.5000, L501.5200 ####[facility] [address] [place], [address] CO2 [Moles/Vol] 25.5 mmol/L Normal 21.0-32.0 [facility] Comment on above: Order Comment: .1 Performed By: #### L 500.4050, L100.0500, L501.2300, L3300.9900, L501.5000, L501.5200 ####[facility] [address] [place], [address] Creatinine [Mass/Vol] 0.36 mg/dL Low 0.70-1.20 [facility] Comment on above: Order Comment: 205.1 Performed By: #### L 500.4050, L100.0500, L501.2300, L3300.9900, L501.5000, L501.5200 ####[facility] [address] [place], [address] GAP 10 Normal 5-15 [facility] Comment on above: Order Comment: 205.1 Performed By: #### L 500.4050, L100.0500, L501.2300, L3300.9900, L501.5000, L501.5200 ####[facility] [address] [place], [address] GFR/1.73 sq M.predicted among non-blacks MDRD (S/P/Bld) [Vol rate/Area] 110 mL/min/{1.73_m2} Normal >60 [facility] Comment on above: Order Comment: .1 Result Comment: mL/m in/1.73m2 CKD-EPI Creatinine Equation (2020) Performed By: #### L 500.4050, L100.0500, L501.2300, L3300.9900, L501.5000, L501.5200 ####[facility] [address] [place], [address] Globulin (S) [Mass/Vol] 3.2 g/dL Normal 2.2-4.2 [facility] Comment on above: Order Comment: .1 Performed By: #### L 500.4050, L100.0500, L501.2300, L3300.9900, L501.5000, L501.5200 ####[facility] [address] [place], [address] Glucose [Mass/Vol] 112 mg/dL High 70-99 [facility] Comment on above: Order Comment: 205.1 Performed By: #### L 500.4050, L100.0500, L501.2300, L3300.9900, L501.5000, L501.5200 ####[facility] [address] [place], [address] Potassium [Moles/Vol] 4.9 mmol/L Normal 3.3-5.1 [facility] Comment on above: Order Comment: . Performed By: #### L 500.4050, L100.0500, L501.2300, L3300.9900, L501.5000, L501.5200 ####[facility] [address] [place], [address] Sodium [Moles/Vol] 136 mmol/L Normal 133-145 [facility] Comment on above: Order Comment: . Performed By: #### L 500.4050, L100.0500, L501.2300, L3300.9900, L501.5000, L501.5200 ####[facility] [address] [place], [address] T BILI < 0.15 Normal 0.00-1.30 [facility] Comment on above: Order Comment: . Performed By: #### L 500.4050, L100.0500, L501.2300, L3300.9900, L501.5000, L501.5200 ####[facility] [address] [place], [address] T PROT 6.3 g/dL Normal 5.9-8.4 [facility] Comment on above: Order Comment: .1 Performed By: #### L 500.4050, L100.0500, L501.2300, L3300.9900, L501.5000, L501.5200 ####[facility] [address] [place], [address] Urea nitrogen [Mass/Vol] 16 mg/dL Normal 4-19 [facility] Comment on above: Order Comment: . Performed By: #### L 500.4050, L100.0500, L501.2300, L3300.9900, L501.5000, L501.5200 ####[facility] [address] [place], [address] Magnesiumon 10-02-2024 Magnesium [Mass/Vol] 2.1 mg/dL Normal 1.5-2.2 [facility] Comment on above: Order Comment: . Performed By: #### L 500.4050, L100.0500, L501.2300, L3300.9900, L501.5000, L501.5200 ####[facility] [address] [place], [address] Phosphoruson 10-02-2024 Phosphate [Mass/Vol] 3.7 mg/dL Normal 2.7-4.5 [facility] Comment on above: Order Comment: . Performed By: #### L 500.4050, L100.0500, L501.2300, L3300.9900, L501.5000, L501.5200 ####[facility] [address] [place], [address] Triglycerideson 10-02-2024 Triglyceride [Mass/Vol] 59 mg/dL Normal [facility] Comment on above: Order Comment: . Result Comment: The drugs N-Acetylcysteine and Metamizole may falselydepress this assay.Normal range: <150 mg/dLBorderline High: 150-199 mg/dLHigh: 200-499 mg/dLVery High: >500 mg/dL Performed By: #### L 500.4050, L100.0500, L501.2300, L3300.9900, L501.5000, L501.5200 ####[facility] [address] [place], [address] CBC-Complete Blood Cnt No Di ffon 09-29-2024 Erythrocyte distribution width (RBC) [Ratio] 17.5 % High 11.6-14.6 [facility] Comment on above: Order Comment: 205 Performed By: #### L 500.4050, L501.5000, L501.5200, L501.2300, L100.0500 ####[facility] [address] [place], [address] Hematocrit (Bld) [Volume fraction] 30.4 % Low 37-47 [facility] Comment on above: Order Comment: 205 Performed By: #### L 500.4050, L501.5000, L501.5200, L501.2300, L100.0500 ####[facility] [address] [place], [address] Hemoglobin (Bld) [Mass/Vol] 9.4 g/dL Low 12.0-15.0 [facility] Comment on above: Order Comment: 205 Performed By: #### L 500.4050, L501.5000, L501.5200, L501.2300, L100.0500 ####[facility] [address] [place], [address] MCH (RBC) [Entitic mass] 24.5 pg Low 27.0-32.0 [facility] Comment on above: Order Comment: 205 Performed By: #### L 500.4050, L501.5000, L501.5200, L501.2300, L100.0500 ####[facility] [address] [place], [address] MCHC (RBC) [Mass/Vol] 30.9 g/dL Low 32-36 [facility] Comment on above: Order Comment: 205 Performed By: #### L 500.4050, L501.5000, L501.5200, L501.2300, L100.0500 ####[facility] [address] [place], [address] MCV (RBC) [Entitic vol] 79.2 fL Low 81-99 [facility] Comment on above: Order Comment: 205 Performed By: #### L 500.4050, L501.5000, L501.5200, L501.2300, L100.0500 ####[facility] [address] [place], [address] Platelet mean volume (Bld) [Entitic vol] 9.3 fL Normal 6.2-12.0 [facility] Comment on above: Order Comment: 205 Performed By: #### L 500.4050, L501.5000, L501.5200, L501.2300, L100.0500 ####[facility] [address] [place], [address] Platelets (Bld) [#/Vol] 522 10*3/uL High 150-450 [facility] Comment on above: Order Comment: 205 Performed By: #### L 500.4050, L501.5000, L501.5200, L501.2300, L100.0500 ####[facility] [address] [place], [address] RBC (Bld) [#/Vol] 3.84 10*6/uL Low 4.2-5.4 [facility] Comment on above: Order Comment: 205 Performed By: #### L 500.4050, L501.5000, L501.5200, L501.2300, L100.0500 ####[facility] [address] [place], [address] RDW SD 47.9 fl High 35.1-43.9 [facility] Comment on above: Order Comment: 205 Performed By: #### L 500.4050, L501.5000, L501.5200, L501.2300, L100.0500 ####[facility] [address] [place], [address] WBC (Bld) [#/Vol] 6.6 10*3/uL Normal 4.4-11.0 [facility] Comment on above: Order Comment: 205 Performed By: #### L 500.4050, L501.5000, L501.5200, L501.2300, L100.0500 ####[facility] [address] [place], [address] Comprehensive Metabolic Prof ilon 09-29-2024 Albumin [Mass/Vol] 2.9 g/dL Low 3.4-4.8 [facility] Comment on above: Order Comment: 205 Performed By: #### L 500.4050, L501.5000, L501.5200, L501.2300, L100.0500 ####[facility] [address] [place], [address] Albumin/Globulin [Mass ratio] 0.9 {ratio} Normal 0.9-2.4 [facility] Comment on above: Order Comment: 205 Performed By: #### L 500.4050, L501.5000, L501.5200, L501.2300, L100.0500 ####[facility] [address] [place], [address] ALK PHOS 159 U/L High 35-104 [facility] Comment on above: Order Comment: 205 Performed By: #### L 500.4050, L501.5000, L501.5200, L501.2300, L100.0500 ####[facility] [address] [place], [address] ALT [Catalytic activity/Vol] 34 U/L Normal <=34 [facility] Comment on above: Order Comment: 205 Performed By: #### L 500.4050, L501.5000, L501.5200, L501.2300, L100.0500 ####[facility] [address] [place], [address] AST [Catalytic activity/Vol] 36 U/L High <=31 [facility] Comment on above: Order Comment: 205 Performed By: #### L 500.4050, L501.5000, L501.5200, L501.2300, L100.0500 ####[facility] [address] [place], [address] BUN/CRE 47.1 RATIO High 10-20 [facility] Comment on above: Order Comment: 205 Performed By: #### L 500.4050, L501.5000, L501.5200, L501.2300, L100.0500 ####[facility] [address] [place], [address] Calcium [Mass/Vol] 8.7 mg/dL Normal 7.6-11.0 [facility] Comment on above: Order Comment: 205 Performed By: #### L 500.4050, L501.5000, L501.5200, L501.2300, L100.0500 ####[facility] [address] [place], [address] Chloride [Moles/Vol] 102 mmol/L Normal 98-108 [facility] Comment on above: Order Comment: 205 Performed By: #### L 500.4050, L501.5000, L501.5200, L501.2300, L100.0500 ####[facility] [address] [place], [address] CO2 [Moles/Vol] 26.8 mmol/L Normal 21.0-32.0 [facility] Comment on above: Order Comment: 205 Performed By: #### L 500.4050, L501.5000, L501.5200, L501.2300, L100.0500 ####[facility] [address] [place], [address] Creatinine [Mass/Vol] 0.40 mg/dL Low 0.70-1.20 [facility] Comment on above: Order Comment: 205 Performed By: #### L 500.4050, L501.5000, L501.5200, L501.2300, L100.0500 ####[facility] [address] [place], [address] GAP 9 Normal 5-15 [facility] Comment on above: Order Comment: 205 Performed By: #### L 500.4050, L501.5000, L501.5200, L501.2300, L100.0500 ####[facility] [address] [place], [address] GFR/1.73 sq M.predicted among non-blacks MDRD (S/P/Bld) [Vol rate/Area] 107 mL/min/{1.73_m2} Normal >60 [facility] Comment on above: Order Comment: 205 Result Comment: mL/m in/1.73m2 CKD-EPI Creatinine Equation (2020) Performed By: #### L 500.4050, L501.5000, L501.5200, L501.2300, L100.0500 ####[facility] [address] [place], [address] Globulin (S) [Mass/Vol] 3.2 g/dL Normal 2.2-4.2 [facility] Comment on above: Order Comment: 205 Performed By: #### L 500.4050, L501.5000, L501.5200, L501.2300, L100.0500 ####[facility] [address] [place], [address] Glucose [Mass/Vol] 120 mg/dL High 70-99 [facility] Comment on above: Order Comment: 205 Performed By: #### L 500.4050, L501.5000, L501.5200, L501.2300, L100.0500 ####[facility] [address] [place], [address] Potassium [Moles/Vol] 4.8 mmol/L Normal 3.3-5.1 [facility] Comment on above: Order Comment: 205 Performed By: #### L 500.4050, L501.5000, L501.5200, L501.2300, L100.0500 ####[facility] [address] [place], [address] Sodium [Moles/Vol] 138 mmol/L Normal 133-145 [facility] Comment on above: Order Comment: 205 Performed By: #### L 500.4050, L501.5000, L501.5200, L501.2300, L100.0500 ####[facility] [address] [place], [address] T BILI < 0.15 Normal 0.00-1.30 [facility] Comment on above: Order Comment: 205 Performed By: #### L 500.4050, L501.5000, L501.5200, L501.2300, L100.0500 ####[facility] [address] [place], [address] T PROT 6.2 g/dL Normal 5.9-8.4 [facility] Comment on above: Order Comment: 205 Performed By: #### L 500.4050, L501.5000, L501.5200, L501.2300, L100.0500 ####[facility] [address] [place], [address] Urea nitrogen [Mass/Vol] 19 mg/dL Normal 4-19 [facility] Comment on above: Order Comment: 205 Performed By: #### L 500.4050, L501.5000, L501.5200, L501.2300, L100.0500 ####[facility] [address] [place], [address] Magnesiumon 09-29-2024 Magnesium [Mass/Vol] 2.1 mg/dL Normal 1.5-2.2 [facility] Comment on above: Order Comment: 205 Performed By: #### L 500.4050, L501.5000, L501.5200, L501.2300, L100.0500 ####[facility] [address] [place], [address] Phosphoruson 09-29-2024 Phosphate [Mass/Vol] 4.0 mg/dL Normal 2.7-4.5 [facility] Comment on above: Order Comment: 205 Performed By: #### L 500.4050, L501.5000, L501.5200, L501.2300, L100.0500 ####[facility] [address] [place], [address] Triglycerideson 09-29-2024 Triglyceride [Mass/Vol] 53 mg/dL Normal [facility] Comment on above: Order Comment: 205 Result Comment: The drugs N-Acetylcysteine and Metamizole may falselydepress this assay.Normal range: <150 mg/dLBorderline High: 150-199 mg/dLHigh: 200-499 mg/dLVery High: >500 mg/dL Performed By: #### L 500.4050, L501.5000, L501.5200, L501.2300, L100.0500 ####[facility] [address] [place], [address] Zinc, Plasma or Serumon 05-0 ZINC,PLASMA/SER 59 ug/dL Normal 44-115 [facility] Comment on above: Order Comment: Test( s) 910159-[id number], Plasma or Serumwas developed and its performance characteristicsdetermined by [employer]. It has not been cleared or approvedby the Food and Drug Administration. Result Comment: Dete ction Limit = 5Performed at: [address] [id number] Director: Elvie Fry MD, Phone: [phone] Performed By: #### L 501.5000, L501.5200, L3300.9900, L100.0500, L501.2300, L500.4050 ####[facility] [address] [place], [address] CBC-Complete Blood Cnt No Melissa gordillo 09-27-2024 Erythrocyte distribution width (RBC) [Ratio] 17.9 % High 11.6-14.6 [facility] Comment on above: Order Comment: 205 Performed By: #### L 501.2300, L100.0500, L500.4050, L501.5200 ####[facility] [address] [place], [address] Hematocrit (Bld) [Volume fraction] 32.0 % Low 37-47 [facility] Comment on above: Order Comment: 205 Performed By: #### L 501.2300, L100.0500, L500.4050, L501.5200 ####[facility] [address] [place], [address] Hemoglobin (Bld) [Mass/Vol] 9.7 g/dL Low 12.0-15.0 [facility] Comment on above: Order Comment: 205 Performed By: #### L 501.2300, L100.0500, L500.4050, L501.5200 ####[facility] [address] [place], [address] MCH (RBC) [Entitic mass] 24.1 pg Low 27.0-32.0 [facility] Comment on above: Order Comment: 205 Performed By: #### L 501.2300, L100.0500, L500.4050, L501.5200 ####[facility] [address] [place], [address] MCHC (RBC) [Mass/Vol] 30.3 g/dL Low 32-36 [facility] Comment on above: Order Comment: 205 Performed By: #### L 501.2300, L100.0500, L500.4050, L501.5200 ####[facility] [address] [place], [address] MCV (RBC) [Entitic vol] 79.6 fL Low 81-99 [facility] Comment on above: Order Comment: 205 Performed By: #### L 501.2300, L100.0500, L500.4050, L501.5200 ####[facility] [address] [place], [address] Platelet mean volume (Bld) [Entitic vol] 9.3 fL Normal 6.2-12.0 [facility] Comment on above: Order Comment: 205 Performed By: #### L 501.2300, L100.0500, L500.4050, L501.5200 ####[facility] [address] [place], [address] Platelets (Bld) [#/Vol] 542 10*3/uL High 150-450 [facility] Comment on above: Order Comment: 205 Performed By: #### L 501.2300, L100.0500, L500.4050, L501.5200 ####[facility] [address] [place], [address] RBC (Bld) [#/Vol] 4.02 10*6/uL Low 4.2-5.4 [facility] Comment on above: Order Comment: 205 Performed By: #### L 501.2300, L100.0500, L500.4050, L501.5200 ####[facility] [address] [place], [address] RDW SD 49.2 fl High 35.1-43.9 [facility] Comment on above: Order Comment: 205 Performed By: #### L 501.2300, L100.0500, L500.4050, L501.5200 ####[facility] [address] [place], [address] WBC (Bld) [#/Vol] 9.3 10*3/uL Normal 4.4-11.0 [facility] Comment on above: Order Comment: 205 Performed By: #### L 501.2300, L100.0500, L500.4050, L501.5200 ####[facility] [address] [place], [address] Comprehensive Metabolic Prof ilon 09-27-2024 Albumin [Mass/Vol] 3.2 g/dL Low 3.4-4.8 [facility] Comment on above: Order Comment: 205 Performed By: #### L 501.2300, L100.0500, L500.4050, L501.5200 ####[facility] [address] [place], [address] Albumin/Globulin [Mass ratio] 1.0 {ratio} Normal 0.9-2.4 [facility] Comment on above: Order Comment: 205 Performed By: #### L 501.2300, L100.0500, L500.4050, L501.5200 ####[facility] [address] [place], [address] ALK PHOS 161 U/L High 35-104 [facility] Comment on above: Order Comment: 205 Performed By: #### L 501.2300, L100.0500, L500.4050, L501.5200 ####[facility] [address] [place], [address] ALT [Catalytic activity/Vol] 28 U/L Normal <=34 [facility] Comment on above: Order Comment: 205 Performed By: #### L 501.2300, L100.0500, L500.4050, L501.5200 ####[facility] [address] [place], [address] AST [Catalytic activity/Vol] 31 U/L Normal <=31 [facility] Comment on above: Order Comment: 205 Performed By: #### L 501.2300, L100.0500, L500.4050, L501.5200 ####[facility] [address] [place], [address] BUN/CRE 49.5 RATIO High 10-20 [facility] Comment on above: Order Comment: 205 Performed By: #### L 501.2300, L100.0500, L500.4050, L501.5200 ####[facility] [address] [place], [address] Calcium [Mass/Vol] 8.9 mg/dL Normal 7.6-11.0 [facility] Comment on above: Order Comment: 205 Performed By: #### L 501.2300, L100.0500, L500.4050, L501.5200 ####[facility] [address] [place], [address] Chloride [Moles/Vol] 99 mmol/L Normal 98-108 [facility] Comment on above: Order Comment: 205 Performed By: #### L 501.2300, L100.0500, L500.4050, L501.5200 ####[facility] [address] [place], [address] CO2 [Moles/Vol] 26.6 mmol/L Normal 21.0-32.0 [facility] Comment on above: Order Comment: 205 Performed By: #### L 501.2300, L100.0500, L500.4050, L501.5200 ####[facility] [address] [place], [address] Creatinine [Mass/Vol] 0.41 mg/dL Low 0.70-1.20 [facility] Comment on above: Order Comment: 205 Performed By: #### L 501.2300, L100.0500, L500.4050, L501.5200 ####[facility] [address] [place], [address] GAP 12 Normal 5-15 [facility] Comment on above: Order Comment: 205 Performed By: #### L 501.2300, L100.0500, L500.4050, L501.5200 ####[facility] [address] [place], [address] GFR/1.73 sq M.predicted among non-blacks MDRD (S/P/Bld) [Vol rate/Area] 106 mL/min/{1.73_m2} Normal >60 [facility] Comment on above: Order Comment: 205 Result Comment: mL/m in/1.73m2 CKD-EPI Creatinine Equation (2020) Performed By: #### L 501.2300, L100.0500, L500.4050, L501.5200 ####[facility] [address] [place], [address] Globulin (S) [Mass/Vol] 3.3 g/dL Normal 2.2-4.2 [facility] Comment on above: Order Comment: 205 Performed By: #### L 501.2300, L100.0500, L500.4050, L501.5200 ####[facility] [address] [place], [address] Glucose [Mass/Vol] 113 mg/dL High 70-99 [facility] Comment on above: Order Comment: 205 Performed By: #### L 501.2300, L100.0500, L500.4050, L501.5200 ####[facility] [address] [place], [address] Potassium [Moles/Vol] 4.4 mmol/L Normal 3.3-5.1 [facility] Comment on above: Order Comment: 205 Performed By: #### L 501.2300, L100.0500, L500.4050, L501.5200 ####[facility] [address] [place], [address] Sodium [Moles/Vol] 137 mmol/L Normal 133-145 [facility] Comment on above: Order Comment: 205 Performed By: #### L 501.2300, L100.0500, L500.4050, L501.5200 ####[facility] [address] [place], [address] T BILI < 0.15 Normal 0.00-1.30 [facility] Comment on above: Order Comment: 205 Performed By: #### L 501.2300, L100.0500, L500.4050, L501.5200 ####[facility] [address] [place], [address] T PROT 6.5 g/dL Normal 5.9-8.4 [facility] Comment on above: Order Comment: 205 Performed By: #### L 501.2300, L100.0500, L500.4050, L501.5200 ####[facility] [address] [place], [address] Urea nitrogen [Mass/Vol] 20 mg/dL High 4-19 [facility] Comment on above: Order Comment: 205 Performed By: #### L 501.2300, L100.0500, L500.4050, L501.5200 ####[facility] [address] [place], [address] Magnesiumon 09-27-2024 Magnesium [Mass/Vol] 2.1 mg/dL Normal 1.5-2.2 [facility] Comment on above: Order Comment: 205 Performed By: #### L 501.2300, L100.0500, L500.4050, L501.5200 ####[facility] [address] [place], [address] Phosphoruson 09-27-2024 Phosphate [Mass/Vol] 4.0 mg/dL Normal 2.7-4.5 [facility] Comment on above: Order Comment: 205 Performed By: #### L 501.2300, L100.0500, L500.4050, L501.5200 ####[facility] [address] [place], [address] CBC-Complete Blood Cnt No Di ffon 09-25-2024 Erythrocyte distribution width (RBC) [Ratio] 17.8 % High 11.6-14.6 [facility] Comment on above: Order Comment: 205.1 Performed By: #### L 501.5000, L501.5200, L3300.9900, L100.0500, L501.2300, L500.4050 ####[facility] [address] [place], [address] Hematocrit (Bld) [Volume fraction] 30.6 % Low 37-47 [facility] Comment on above: Order Comment: 205.1 Performed By: #### L 501.5000, L501.5200, L3300.9900, L100.0500, L501.2300, L500.4050 ####[facility] [address] [place], [address] Hemoglobin (Bld) [Mass/Vol] 9.3 g/dL Low 12.0-15.0 [facility] Comment on above: Order Comment: .1 Performed By: #### L 501.5000, L501.5200, L3300.9900, L100.0500, L501.2300, L500.4050 ####[facility] [address] [place], [address] MCH (RBC) [Entitic mass] 24.0 pg Low 27.0-32.0 [facility] Comment on above: Order Comment: .1 Performed By: #### L 501.5000, L501.5200, L3300.9900, L100.0500, L501.2300, L500.4050 ####[facility] [address] [place], [address] MCHC (RBC) [Mass/Vol] 30.4 g/dL Low 32-36 [facility] Comment on above: Order Comment: 205.1 Performed By: #### L 501.5000, L501.5200, L3300.9900, L100.0500, L501.2300, L500.4050 ####[facility] [address] [place], [address] MCV (RBC) [Entitic vol] 79.1 fL Low 81-99 [facility] Comment on above: Order Comment: .1 Performed By: #### L 501.5000, L501.5200, L3300.9900, L100.0500, L501.2300, L500.4050 ####[facility] [address] [place], [address] Platelet mean volume (Bld) [Entitic vol] 9.3 fL Normal 6.2-12.0 [facility] Comment on above: Order Comment: . Performed By: #### L 501.5000, L501.5200, L3300.9900, L100.0500, L501.2300, L500.4050 ####[facility] [address] [place], [address] Platelets (Bld) [#/Vol] 493 10*3/uL High 150-450 [facility] Comment on above: Order Comment: . Performed By: #### L 501.5000, L501.5200, L3300.9900, L100.0500, L501.2300, L500.4050 ####[facility] [address] [place], [address] RBC (Bld) [#/Vol] 3.87 10*6/uL Low 4.2-5.4 [facility] Comment on above: Order Comment: .1 Performed By: #### L 501.5000, L501.5200, L3300.9900, L100.0500, L501.2300, L500.4050 ####[facility] [address] [place], [address] RDW SD 49.6 fl High 35.1-43.9 [facility] Comment on above: Order Comment: .1 Performed By: #### L 501.5000, L501.5200, L3300.9900, L100.0500, L501.2300, L500.4050 ####[facility] [address] [place], [address] WBC (Bld) [#/Vol] 10.6 10*3/uL Normal 4.4-11.0 [facility] Comment on above: Order Comment: . Performed By: #### L 501.5000, L501.5200, L3300.9900, L100.0500, L501.2300, L500.4050 ####[facility] [address] [place], [address] Comprehensive Metabolic Prof ilon 09-25-2024 Albumin [Mass/Vol] 3.1 g/dL Low 3.4-4.8 [facility] Comment on above: Order Comment: . Performed By: #### L 501.5000, L501.5200, L3300.9900, L100.0500, L501.2300, L500.4050 ####[facility] [address] [place], [address] Albumin/Globulin [Mass ratio] 1.0 {ratio} Normal 0.9-2.4 [facility] Comment on above: Order Comment: 205.1 Performed By: #### L 501.5000, L501.5200, L3300.9900, L100.0500, L501.2300, L500.4050 ####[facility] [address] [place], [address] ALK PHOS 159 U/L High 35-104 [facility] Comment on above: Order Comment: .1 Performed By: #### L 501.5000, L501.5200, L3300.9900, L100.0500, L501.2300, L500.4050 ####[facility] [address] [place], [address] ALT [Catalytic activity/Vol] 31 U/L Normal <=34 [facility] Comment on above: Order Comment: 205.1 Performed By: #### L 501.5000, L501.5200, L3300.9900, L100.0500, L501.2300, L500.4050 ####[facility] [address] [place], [address] AST [Catalytic activity/Vol] 29 U/L Normal <=31 [facility] Comment on above: Order Comment: .1 Performed By: #### L 501.5000, L501.5200, L3300.9900, L100.0500, L501.2300, L500.4050 ####[facility] [address] [place], [address] Bilirubin [Mass/Vol] 0.18 mg/dL Normal 0.00-1.30 [facility] Comment on above: Order Comment: .1 Performed By: #### L 501.5000, L501.5200, L3300.9900, L100.0500, L501.2300, L500.4050 ####[facility] [address] [place], [address] BUN/CRE 54.6 RATIO High 10-20 [facility] Comment on above: Order Comment: .1 Performed By: #### L 501.5000, L501.5200, L3300.9900, L100.0500, L501.2300, L500.4050 ####[facility] [address] [place], [address] Calcium [Mass/Vol] 8.8 mg/dL Normal 7.6-11.0 [facility] Comment on above: Order Comment: .1 Performed By: #### L 501.5000, L501.5200, L3300.9900, L100.0500, L501.2300, L500.4050 ####[facility] [address] [place], [address] Chloride [Moles/Vol] 101 mmol/L Normal 98-108 [facility] Comment on above: Order Comment: 205.1 Performed By: #### L 501.5000, L501.5200, L3300.9900, L100.0500, L501.2300, L500.4050 ####[facility] [address] [place], [address] CO2 [Moles/Vol] 23.7 mmol/L Normal 21.0-32.0 [facility] Comment on above: Order Comment: .1 Performed By: #### L 501.5000, L501.5200, L3300.9900, L100.0500, L501.2300, L500.4050 ####[facility] [address] [place], [address] Creatinine [Mass/Vol] 0.34 mg/dL Low 0.70-1.20 [facility] Comment on above: Order Comment: .1 Performed By: #### L 501.5000, L501.5200, L3300.9900, L100.0500, L501.2300, L500.4050 ####[facility] [address] [place], [address] GAP 12 Normal 5-15 [facility] Comment on above: Order Comment: .1 Performed By: #### L 501.5000, L501.5200, L3300.9900, L100.0500, L501.2300, L500.4050 ####[facility] [address] [place], [address] GFR/1.73 sq M.predicted among non-blacks MDRD (S/P/Bld) [Vol rate/Area] 111 mL/min/{1.73_m2} Normal >60 [facility] Comment on above: Order Comment: . Result Comment: mL/m in/1.73m2 CKD-EPI Creatinine Equation (2020) Performed By: #### L 501.5000, L501.5200, L3300.9900, L100.0500, L501.2300, L500.4050 ####[facility] [address] [place], [address] Globulin (S) [Mass/Vol] 3.2 g/dL Normal 2.2-4.2 [facility] Comment on above: Order Comment: . Performed By: #### L 501.5000, L501.5200, L3300.9900, L100.0500, L501.2300, L500.4050 ####[facility] [address] [place], [address] Glucose [Mass/Vol] 140 mg/dL High 70-99 [facility] Comment on above: Order Comment: Performed By: #### L 501.5000, L501.5200, L3300.9900, L100.0500, L501.2300, L500.4050 ####[facility] [address] [place], [address] Potassium [Moles/Vol] 4.4 mmol/L Normal 3.3-5.1 [facility] Comment on above: Order Comment: . Performed By: #### L 501.5000, L501.5200, L3300.9900, L100.0500, L501.2300, L500.4050 ####[facility] [address] [place], [address] Sodium [Moles/Vol] 137 mmol/L Normal 133-145 [facility] Comment on above: Order Comment: . Performed By: #### L 501.5000, L501.5200, L3300.9900, L100.0500, L501.2300, L500.4050 ####[facility] [address] [place], [address] T PROT 6.3 g/dL Normal 5.9-8.4 [facility] Comment on above: Order Comment: 205.1 Performed By: #### L 501.5000, L501.5200, L3300.9900, L100.0500, L501.2300, L500.4050 ####[facility] [address] [place], [address] Urea nitrogen [Mass/Vol] 19 mg/dL Normal 4-19 [facility] Comment on above: Order Comment: .1 Performed By: #### L 501.5000, L501.5200, L3300.9900, L100.0500, L501.2300, L500.4050 ####[facility] [address] [place], [address] Magnesiumon 09-25-2024 Magnesium [Mass/Vol] 2.1 mg/dL Normal 1.5-2.2 [facility] Comment on above: Order Comment: .1 Performed By: #### L 501.5000, L501.5200, L3300.9900, L100.0500, L501.2300, L500.4050 ####[facility] [address] [place], [address] Phosphoruson 09-25-2024 Phosphate [Mass/Vol] 3.8 mg/dL Normal 2.7-4.5 [facility] Comment on above: Order Comment: .1 Performed By: #### L 501.5000, L501.5200, L3300.9900, L100.0500, L501.2300, L500.4050 ####[facility] [address] [place], [address] Triglycerideson 09-25-2024 Triglyceride [Mass/Vol] 54 mg/dL Normal [facility] Comment on above: Order Comment: 205.1 Result Comment: The drugs N-Acetylcysteine and Metamizole may falselydepress this assay.Normal range: <150 mg/dLBorderline High: 150-199 mg/dLHigh: 200-499 mg/dLVery High: >500 mg/dL Performed By: #### L 501.5000, L501.5200, L3300.9900, L100.0500, L501.2300, L500.4050 ####[facility] [address] [place], [address] CBC-Complete Blood Cnt No Di ffon 09-22-2024 Erythrocyte distribution width (RBC) [Ratio] 18.1 % High 11.6-14.6 [facility] Comment on above: Order Comment: Performed By: #### L 500.4050, L501.2300, L501.5000, L501.5200, L100.0500 ####[facility] [address] [place], [address] Hematocrit (Bld) [Volume fraction] 32.8 % Low 37-47 [facility] Comment on above: Order Comment: Performed By: #### L 500.4050, L501.2300, L501.5000, L501.5200, L100.0500 ####[facility] [address] [place], [address] Hemoglobin (Bld) [Mass/Vol] 9.8 g/dL Low 12.0-15.0 [facility] Comment on above: Order Comment: Performed By: #### L 500.4050, L501.2300, L501.5000, L501.5200, L100.0500 ####[facility] [address] [place], [address] MCH (RBC) [Entitic mass] 24.4 pg Low 27.0-32.0 [facility] Comment on above: Order Comment: Performed By: #### L 500.4050, L501.2300, L501.5000, L501.5200, L100.0500 ####[facility] [address] [place], [address] MCHC (RBC) [Mass/Vol] 29.9 g/dL Low 32-36 [facility] Comment on above: Order Comment: Performed By: #### L 500.4050, L501.2300, L501.5000, L501.5200, L100.0500 ####[facility] [address] [place], [address] MCV (RBC) [Entitic vol] 81.6 fL Normal 81-99 [facility] Comment on above: Order Comment: Performed By: #### L 500.4050, L501.2300, L501.5000, L501.5200, L100.0500 ####[facility] [address] [place], [address] Platelet mean volume (Bld) [Entitic vol] 9.2 fL Normal 6.2-12.0 [facility] Comment on above: Order Comment: Performed By: #### L 500.4050, L501.2300, L501.5000, L501.5200, L100.0500 ####[facility] [address] [place], [address] Platelets (Bld) [#/Vol] 443 10*3/uL Normal 150-450 [facility] Comment on above: Order Comment: Performed By: #### L 500.4050, L501.2300, L501.5000, L501.5200, L100.0500 ####[facility] [address] [place], [address] RBC (Bld) [#/Vol] 4.02 10*6/uL Low 4.2-5.4 [facility] Comment on above: Order Comment: Performed By: #### L 500.4050, L501.2300, L501.5000, L501.5200, L100.0500 ####[facility] [address] [place], [address] RDW SD 51.4 fl High 35.1-43.9 [facility] Comment on above: Order Comment: Performed By: #### L 500.4050, L501.2300, L501.5000, L501.5200, L100.0500 ####[facility] [address] [place], [address] WBC (Bld) [#/Vol] 9.2 10*3/uL Normal 4.4-11.0 [facility] Comment on above: Order Comment: Performed By: #### L 500.4050, L501.2300, L501.5000, L501.5200, L100.0500 ####[facility] [address] [place], [address] Comprehensive Metabolic Prof [facility] 09-22-2024 Albumin [Mass/Vol] 3.0 g/dL Low 3.4-4.8 [facility] Comment on above: Order Comment: Performed By: #### L 500.4050, L501.2300, L501.5000, L501.5200, L100.0500 ####[facility] [address] [place], [address] Albumin/Globulin [Mass ratio] 1.0 {ratio} Normal 0.9-2.4 [facility] Comment on above: Order Comment: Performed By: #### L 500.4050, L501.2300, L501.5000, L501.5200, L100.0500 ####[facility] [address] [place], [address] ALK PHOS 157 U/L High 35-104 [facility] Comment on above: Order Comment: Performed By: #### L 500.4050, L501.2300, L501.5000, L501.5200, L100.0500 ####[facility] [address] [place], [address] ALT [Catalytic activity/Vol] 32 U/L Normal <=34 [facility] Comment on above: Order Comment: - Performed By: #### L 500.4050, L501.2300, L501.5000, L501.5200, L100.0500 ####[facility] [address] [place], [address] AST [Catalytic activity/Vol] 32 U/L Normal <=31 [facility] Comment on above: Order Comment: - Performed By: #### L 500.4050, L501.2300, L501.5000, L501.5200, L100.0500 ####[facility] [address] [place], [address] Bilirubin [Mass/Vol] 0.22 mg/dL Normal 0.00-1.30 [facility] Comment on above: Order Comment: - Performed By: #### L 500.4050, L501.2300, L501.5000, L501.5200, L100.0500 ####[facility] [address] [place], [address] BUN/CRE 35.4 RATIO High 10-20 [facility] Comment on above: Order Comment: - Performed By: #### L 500.4050, L501.2300, L501.5000, L501.5200, L100.0500 ####[facility] [address] [place], [address] Calcium [Mass/Vol] 8.8 mg/dL Normal 7.6-11.0 [facility] Comment on above: Order Comment: - Performed By: #### L 500.4050, L501.2300, L501.5000, L501.5200, L100.0500 ####[facility] [address] [place], [address] Chloride [Moles/Vol] 101 mmol/L Normal 98-108 [facility] Comment on above: Order Comment: Performed By: #### L 500.4050, L501.2300, L501.5000, L501.5200, L100.0500 ####[facility] [address] [place], [address] CO2 [Moles/Vol] 26.4 mmol/L Normal 21.0-32.0 [facility] Comment on above: Order Comment: Performed By: #### L 500.4050, L501.2300, L501.5000, L501.5200, L100.0500 ####[facility] [address] [place], [address] Creatinine [Mass/Vol] 0.45 mg/dL Low 0.70-1.20 [facility] Comment on above: Order Comment: Performed By: #### L 500.4050, L501.2300, L501.5000, L501.5200, L100.0500 ####[facility] [address] [place], [address] GAP 11 Normal 5-15 [facility] Comment on above: Order Comment: Performed By: #### L 500.4050, L501.2300, L501.5000, L501.5200, L100.0500 ####[facility] [address] [place], [address] GFR/1.73 sq M.predicted among non-blacks MDRD (S/P/Bld) [Vol rate/Area] 104 mL/min/{1.73_m2} Normal >60 [facility] Comment on above: Order Comment: Result Comment: mL/m in/1.73m2 CKD-EPI Creatinine Equation (2020) Performed By: #### L 500.4050, L501.2300, L501.5000, L501.5200, L100.0500 ####[facility] [address] [place], [address] Globulin (S) [Mass/Vol] 3.1 g/dL Normal 2.2-4.2 [facility] Comment on above: Order Comment: Performed By: #### L 500.4050, L501.2300, L501.5000, L501.5200, L100.0500 ####[facility] [address] [place], [address] Glucose [Mass/Vol] 96 mg/dL Normal 70-99 [facility] Comment on above: Order Comment: Performed By: #### L 500.4050, L501.2300, L501.5000, L501.5200, L100.0500 ####[facility] [address] [place], [address] Potassium [Moles/Vol] 4.4 mmol/L Normal 3.3-5.1 [facility] Comment on above: Order Comment: Performed By: #### L 500.4050, L501.2300, L501.5000, L501.5200, L100.0500 ####[facility] [address] [place], [address] Sodium [Moles/Vol] 138 mmol/L Normal 133-145 [facility] Comment on above: Order Comment: Performed By: #### L 500.4050, L501.2300, L501.5000, L501.5200, L100.0500 ####[facility] [address] [place], [address] T PROT 6.1 g/dL Normal 5.9-8.4 [facility] Comment on above: Order Comment: Performed By: #### L 500.4050, L501.2300, L501.5000, L501.5200, L100.0500 ####[facility] [address] [place], [address] Urea nitrogen [Mass/Vol] 16 mg/dL Normal 4-19 [facility] Comment on above: Order Comment: Performed By: #### L 500.4050, L501.2300, L501.5000, L501.5200, L100.0500 ####[facility] [address] [place], [address] Magnesiumon 09-22-2024 Magnesium [Mass/Vol] 2.2 mg/dL Normal 1.5-2.2 [facility] Comment on above: Order Comment: Performed By: #### L 500.4050, L501.2300, L501.5000, L501.5200, L100.0500 ####[facility] [address] [place], [address] Phosphoruson 09-22-2024 Phosphate [Mass/Vol] 3.7 mg/dL Normal 2.7-4.5 [facility] Comment on above: Order Comment: Performed By: #### L 500.4050, L501.2300, L501.5000, L501.5200, L100.0500 ####[facility] [address] [place], [address] Triglycerideson 09-22-2024 Triglyceride [Mass/Vol] 56 mg/dL Normal [facility] Comment on above: Order Comment: Result Comment: The drugs N-Acetylcysteine and Metamizole may falselydepress this assay.Normal range: <150 mg/dLBorderline High: 150-199 mg/dLHigh: 200-499 mg/dLVery High: >500 mg/dL Performed By: #### L 500.4050, L501.2300, L501.5000, L501.5200, L100.0500 ####[facility] [address] [place], [address] CBC-Complete Blood Cnt No Di ffon 09-20-2024 Erythrocyte distribution width (RBC) [Ratio] 18.6 % High 11.6-14.6 [facility] Comment on above: Order Comment: 200 Performed By: #### L 501.5000, L501.5200, L501.2300, L100.0500, L500.4050 ####[facility] [address] [place], [address] Hematocrit (Bld) [Volume fraction] 30.6 % Low 37-47 [facility] Comment on above: Order Comment: 200 Performed By: #### L 501.5000, L501.5200, L501.2300, L100.0500, L500.4050 ####[facility] [address] [place], [address] Hemoglobin (Bld) [Mass/Vol] 9.0 g/dL Low 12.0-15.0 [facility] Comment on above: Order Comment: 200 Performed By: #### L 501.5000, L501.5200, L501.2300, L100.0500, L500.4050 ####[facility] [address] [place], [address] MCH (RBC) [Entitic mass] 24.1 pg Low 27.0-32.0 [facility] Comment on above: Order Comment: 200 Performed By: #### L 501.5000, L501.5200, L501.2300, L100.0500, L500.4050 ####[facility] [address] [place], [address] MCHC (RBC) [Mass/Vol] 29.4 g/dL Low 32-36 [facility] Comment on above: Order Comment: 200 Performed By: #### L 501.5000, L501.5200, L501.2300, L100.0500, L500.4050 ####[facility] [address] [place], [address] MCV (RBC) [Entitic vol] 82.0 fL Normal 81-99 [facility] Comment on above: Order Comment: 200 Performed By: #### L 501.5000, L501.5200, L501.2300, L100.0500, L500.4050 ####[facility] [address] [place], [address] Platelet mean volume (Bld) [Entitic vol] 9.3 fL Normal 6.2-12.0 [facility] Comment on above: Order Comment: 200 Performed By: #### L 501.5000, L501.5200, L501.2300, L100.0500, L500.4050 ####[facility] [address] [place], [address] Platelets (Bld) [#/Vol] 434 10*3/uL Normal 150-450 [facility] Comment on above: Order Comment: 200 Performed By: #### L 501.5000, L501.5200, L501.2300, L100.0500, L500.4050 ####[facility] [address] [place], [address] RBC (Bld) [#/Vol] 3.73 10*6/uL Low 4.2-5.4 [facility] Comment on above: Order Comment: 200 Performed By: #### L 501.5000, L501.5200, L501.2300, L100.0500, L500.4050 ####[facility] [address] [place], [address] RDW SD 53.1 fl High 35.1-43.9 [facility] Comment on above: Order Comment: 200 Performed By: #### L 501.5000, L501.5200, L501.2300, L100.0500, L500.4050 ####[facility] [address] [place], [address] WBC (Bld) [#/Vol] 9.1 10*3/uL Normal 4.4-11.0 [facility] Comment on above: Order Comment: 200 Performed By: #### L 501.5000, L501.5200, L501.2300, L100.0500, L500.4050 ####[facility] [address] [place], [address] Comprehensive Metabolic Prof ilon 09-20-2024 Albumin [Mass/Vol] 3.0 g/dL Low 3.4-4.8 [facility] Comment on above: Order Comment: 200 Performed By: #### L 501.5000, L501.5200, L501.2300, L100.0500, L500.4050 ####[facility] [address] [place], [address] Albumin/Globulin [Mass ratio] 1.0 {ratio} Normal 0.9-2.4 [facility] Comment on above: Order Comment: 200 Performed By: #### L 501.5000, L501.5200, L501.2300, L100.0500, L500.4050 ####[facility] [address] [place], [address] ALK PHOS 159 U/L High 35-104 [facility] Comment on above: Order Comment: 200 Performed By: #### L 501.5000, L501.5200, L501.2300, L100.0500, L500.4050 ####[facility] [address] [place], [address] ALT [Catalytic activity/Vol] 37 U/L High <=34 [facility] Comment on above: Order Comment: 200 Performed By: #### L 501.5000, L501.5200, L501.2300, L100.0500, L500.4050 ####[facility] [address] [place], [address] AST [Catalytic activity/Vol] 40 U/L High <=31 [facility] Comment on above: Order Comment: 200 Performed By: #### L 501.5000, L501.5200, L501.2300, L100.0500, L500.4050 ####[facility] [address] [place], [address] Bilirubin [Mass/Vol] 0.19 mg/dL Normal 0.00-1.30 [facility] Comment on above: Order Comment: 200 Performed By: #### L 501.5000, L501.5200, L501.2300, L100.0500, L500.4050 ####[facility] [address] [place], [address] BUN/CRE 37.4 RATIO High 10-20 [facility] Comment on above: Order Comment: 200 Performed By: #### L 501.5000, L501.5200, L501.2300, L100.0500, L500.4050 ####[facility] [address] [place], [address] Calcium [Mass/Vol] 8.6 mg/dL Normal 7.6-11.0 [facility] Comment on above: Order Comment: 200 Performed By: #### L 501.5000, L501.5200, L501.2300, L100.0500, L500.4050 ####[facility] [address] [place], [address] Chloride [Moles/Vol] 100 mmol/L Normal 98-108 [facility] Comment on above: Order Comment: 200 Performed By: #### L 501.5000, L501.5200, L501.2300, L100.0500, L500.4050 ####[facility] [address] [place], [address] CO2 [Moles/Vol] 25.7 mmol/L Normal 21.0-32.0 [facility] Comment on above: Order Comment: 200 Performed By: #### L 501.5000, L501.5200, L501.2300, L100.0500, L500.4050 ####[facility] [address] [place], [address] Creatinine [Mass/Vol] 0.44 mg/dL Low 0.70-1.20 [facility] Comment on above: Order Comment: 200 Performed By: #### L 501.5000, L501.5200, L501.2300, L100.0500, L500.4050 ####[facility] [address] [place], [address] GAP 10 Normal 5-15 [facility] Comment on above: Order Comment: 200 Performed By: #### L 501.5000, L501.5200, L501.2300, L100.0500, L500.4050 ####[facility] [address] [place], [address] GFR/1.73 sq M.predicted among non-blacks MDRD (S/P/Bld) [Vol rate/Area] 105 mL/min/{1.73_m2} Normal >60 [facility] Comment on above: Order Comment: 200 Result Comment: mL/m in/1.73m2 CKD-EPI Creatinine Equation (2020) Performed By: #### L 501.5000, L501.5200, L501.2300, L100.0500, L500.4050 ####[facility] [address] [place], [address] Globulin (S) [Mass/Vol] 3.0 g/dL Normal 2.2-4.2 [facility] Comment on above: Order Comment: 200 Performed By: #### L 501.5000, L501.5200, L501.2300, L100.0500, L500.4050 ####[facility] [address] [place], [address] Glucose [Mass/Vol] 274 mg/dL High 70-99 [facility] Comment on above: Order Comment: 200 Performed By: #### L 501.5000, L501.5200, L501.2300, L100.0500, L500.4050 ####[facility] [address] [place], [address] Potassium [Moles/Vol] 4.3 mmol/L Normal 3.3-5.1 [facility] Comment on above: Order Comment: 200 Performed By: #### L 501.5000, L501.5200, L501.2300, L100.0500, L500.4050 ####[facility] [address] [place], [address] Sodium [Moles/Vol] 135 mmol/L Normal 133-145 [facility] Comment on above: Order Comment: 200 Performed By: #### L 501.5000, L501.5200, L501.2300, L100.0500, L500.4050 ####[facility] [address] [place], [address] T PROT 6.0 g/dL Normal 5.9-8.4 [facility] Comment on above: Order Comment: 200 Performed By: #### L 501.5000, L501.5200, L501.2300, L100.0500, L500.4050 ####[facility] [address] [place], [address] Urea nitrogen [Mass/Vol] 17 mg/dL Normal 4-19 [facility] Comment on above: Order Comment: 200 Performed By: #### L 501.5000, L501.5200, L501.2300, L100.0500, L500.4050 ####[facility] [address] [place], [address] Magnesiumon 04-23-2025 Magnesium [Mass/Vol] 2.1 mg/dL Normal 1.5-2.2 [facility] Comment on above: Order Comment: 200 Performed By: #### L 501.5000, L501.5200, L501.2300, L100.0500, L500.4050 ####[facility] [address] [place], [address] Phosphoruson 09-20-2024 Phosphate [Mass/Vol] 3.7 mg/dL Normal 2.7-4.5 [facility] Comment on above: Order Comment: 200 Performed By: #### L 501.5000, L501.5200, L501.2300, L100.0500, L500.4050 ####[facility] [address] [place], [address] Triglycerideson 09-20-2024 Triglyceride [Mass/Vol] 52 mg/dL Normal [facility] Comment on above: Order Comment: 200 Result Comment: The drugs N-Acetylcysteine and Metamizole may falselydepress this assay.Normal range: <150 mg/dLBorderline High: 150-199 mg/dLHigh: 200-499 mg/dLVery High: >500 mg/dL Performed By: #### L 501.5000, L501.5200, L501.2300, L100.0500, L500.4050 ####[facility] [address] [place], [address] Zinc, Plasma or Serumon 08-30 ZINC,PLASMA/SER 55 ug/dL Normal 44-115 [facility] Comment on above: Order Comment: Test( s) [id number]-[id number], Plasma or Serumwas developed and its performance characteristicsdetermined by [employer]. It has not been cleared or approvedby the Food and Drug Administration. Result Comment: Dete ction Limit = 5Performed at: [facility] [employer] [id number] Director: Yogesh Carl PhD, Phone: [phone] at: [facility] [place] [id number] Director: Elvie Fry MD, Phone: [phone] Performed By: #### L 3300.9900, L501.5200, L501.5000, L501.2300, L500.4050, L100.0500, L501.6710, L3410.2920 ####[facility] [address] [place] [place], [address] t-Transglutaminase IgAon tTG IGA <2 Normal 0-3 [facility] Comment on above: Order Comment: Test( s) [id number], Plasma or Serumwas developed and its performance characteristicsdetermined by [employer]. It has not been cleared or approvedby the Food and Drug Administration. Result Comment: Nega tive 0 - 3 Weak Positive 4 - 10 Positive >10 Tissue Transglutaminase (tTG) has been identified as the endomysial antigen. Studies have demonstr- ated that endomysial IgA antibodies have over 99% specificity for gluten sensitive enteropathy. Performed By: #### L 3300.9900, L501.5200, L501.5000, L501.2300, L500.4050, L100.0500, L501.6710, L3410.2920 ####[facility] [address] [place], [place], [address] CBC-Complete Blood Cnt No Di ffon 09-18-2024 Erythrocyte distribution width (RBC) [Ratio] 19.3 % High 11.6-14.6 [facility] Comment on above: Order Comment: 205.1 Performed By: #### L 3300.9900, L501.5200, L501.5000, L501.2300, L500.4050, L100.0500, L501.6710, L3410.2920 ####[facility] [address] [place], [place], [address] Hematocrit (Bld) [Volume fraction] 32.6 % Low 37-47 [facility] Comment on above: Order Comment: 205.1 Performed By: #### L 3300.9900, L501.5200, L501.5000, L501.2300, L500.4050, L100.0500, L501.6710, L3410.2920 ####[facility] [address] [place], [address] Hemoglobin (Bld) [Mass/Vol] 9.6 g/dL Low 12.0-15.0 [facility] Comment on above: Order Comment: . Performed By: #### L 3300.9900, L501.5200, L501.5000, L501.2300, L500.4050, L100.0500, L501.6710, L3410.2920 ####[facility] [address] [place], [address] MCH (RBC) [Entitic mass] 24.4 pg Low 27.0-32.0 [facility] Comment on above: Order Comment: . Performed By: #### L 3300.9900, L501.5200, L501.5000, L501.2300, L500.4050, L100.0500, L501.6710, L3410.2920 ####[facility] [address] [place], [address] MCHC (RBC) [Mass/Vol] 29.4 g/dL Low 32-36 [facility] Comment on above: Order Comment: . Performed By: #### L 3300.9900, L501.5200, L501.5000, L501.2300, L500.4050, L100.0500, L501.6710, L3410.2920 ####[facility] [address] [place], [address] MCV (RBC) [Entitic vol] 83.0 fL Normal 81-99 [facility] Comment on above: Order Comment: . Performed By: #### L 3300.9900, L501.5200, L501.5000, L501.2300, L500.4050, L100.0500, L501.6710, L3410.2920 ####[facility] [address] [place], [address]( Platelet mean volume (Bld) [Entitic vol] 9.3 fL Normal 6.2-12.0 [facility] Comment on above: Order Comment: . Performed By: #### L 3300.9900, L501.5200, L501.5000, L501.2300, L500.4050, L100.0500, L501.6710, L3410.2920 ####[facility] [address] [place], [address]) Platelets (Bld) [#/Vol] 450 10*3/uL Normal 150-450 [facility] Comment on above: Order Comment: . Performed By: #### L 3300.9900, L501.5200, L501.5000, L501.2300, L500.4050, L100.0500, L501.6710, L3410.2920 ####[facility] [address] [place], [address] RBC (Bld) [#/Vol] 3.93 10*6/uL Low 4.2-5.4 [facility] Comment on above: Order Comment: . Performed By: #### L 3300.9900, L501.5200, L501.5000, L501.2300, L500.4050, L100.0500, L501.6710, L3410.2920 ####[facility] [address] [place], [address](067) RDW SD 55.8 fl High 35.1-43.9 [facility] Comment on above: Order Comment: . Performed By: #### L 3300.9900, L501.5200, L501.5000, L501.2300, L500.4050, L100.0500, L501.6710, L3410.2920 ####[facility] [address] [place], [place], [address] WBC (Bld) [#/Vol] 7.9 10*3/uL Normal 4.4-11.0 [facility] Comment on above: Order Comment: . Performed By: #### L 3300.9900, L501.5200, L501.5000, L501.2300, L500.4050, L100.0500, L501.6710, L3410.2920 ####[facility] [address] [place], [place], [id number] CRPon 09-18-2024 C-REACTIVE PROT 68.60 mg/L High 0.0-3.0 [facility] Comment on above: Order Comment: . Performed By: #### L 3300.9900, L501.5200, L501.5000, L501.2300, L500.4050, L100.0500, L501.6710, L3410.2920 ####[facility] [address] [place], [place], [phone] Comprehensive Metabolic Prof ilon 09-18-2024 Albumin [Mass/Vol] 3.1 g/dL Low 3.4-4.8 [facility] Comment on above: Order Comment: . Performed By: #### L 3300.9900, L501.5200, L501.5000, L501.2300, L500.4050, L100.0500, L501.6710, L3410.2920 ####[facility] [address] [place], [place], [address] Albumin/Globulin [Mass ratio] 1.0 {ratio} Normal 0.9-2.4 [facility] Comment on above: Order Comment: . Performed By: #### L 3300.9900, L501.5200, L501.5000, L501.2300, L500.4050, L100.0500, L501.6710, L3410.2920 ####[facility] [address] [place], [address] ALK PHOS 163 U/L High 35-104 [facility] Comment on above: Order Comment: . Performed By: #### L 3300.9900, L501.5200, L501.5000, L501.2300, L500.4050, L100.0500, L501.6710, L3410.2920 ####[facility] [address] [place], [address] ALT [Catalytic activity/Vol] 47 U/L High <=34 [facility] Comment on above: Order Comment: . Performed By: #### L 3300.9900, L501.5200, L501.5000, L501.2300, L500.4050, L100.0500, L501.6710, L3410.2920 ####[facility] [address] [place], [address] AST [Catalytic activity/Vol] 45 U/L High <=31 [facility] Comment on above: Order Comment: . Performed By: #### L 3300.9900, L501.5200, L501.5000, L501.2300, L500.4050, L100.0500, L501.6710, L3410.2920 ####[facility] [address] [place], [address] Bilirubin [Mass/Vol] 0.20 mg/dL Normal 0.00-1.30 [facility] Comment on above: Order Comment: . Performed By: #### L 3300.9900, L501.5200, L501.5000, L501.2300, L500.4050, L100.0500, L501.6710, L3410.2920 ####[facility] [address] [place], [address] BUN/CRE 38.3 RATIO High 10-20 [facility] Comment on above: Order Comment: .1 Performed By: #### L 3300.9900, L501.5200, L501.5000, L501.2300, L500.4050, L100.0500, L501.6710, L3410.2920 ####[facility] [address] [place], [address] Calcium [Mass/Vol] 8.8 mg/dL Normal 7.6-11.0 [facility] Comment on above: Order Comment: . Performed By: #### L 3300.9900, L501.5200, L501.5000, L501.2300, L500.4050, L100.0500, L501.6710, L3410.2920 ####[facility] [address] [place], [address] Chloride [Moles/Vol] 102 mmol/L Normal 98-108 [facility] Comment on above: Order Comment: . Performed By: #### L 3300.9900, L501.5200, L501.5000, L501.2300, L500.4050, L100.0500, L501.6710, L3410.2920 ####[facility] [address] [place], [address] CO2 [Moles/Vol] 25.5 mmol/L Normal 21.0-32.0 [facility] Comment on above: Order Comment: .1 Performed By: #### L 3300.9900, L501.5200, L501.5000, L501.2300, L500.4050, L100.0500, L501.6710, L3410.2920 ####[facility] [address] [place], [address] Creatinine [Mass/Vol] 0.41 mg/dL Low 0.70-1.20 [facility] Comment on above: Order Comment: . Performed By: #### L 3300.9900, L501.5200, L501.5000, L501.2300, L500.4050, L100.0500, L501.6710, L3410.2920 ####[facility] [address] [place], [place], [id number] GAP 11 Normal 5-15 [facility] Comment on above: Order Comment: . Performed By: #### L 3300.9900, L501.5200, L501.5000, L501.2300, L500.4050, L100.0500, L501.6710, L3410.2920 ####[facility] [address] [place], [address] GFR/1.73 sq M.predicted among non-blacks MDRD (S/P/Bld) [Vol rate/Area] 106 mL/min/{1.73_m2} Normal >60 [facility] Comment on above: Order Comment: Result Comment: mL/m in/1.73m2 CKD-EPI Creatinine Equation (2020) Performed By: #### L 3300.9900, L501.5200, L501.5000, L501.2300, L500.4050, L100.0500, L501.6710, L3410.2920 ####[facility] [address] [place], [place], [id number] Globulin (S) [Mass/Vol] 3.0 g/dL Normal 2.2-4.2 [facility] Comment on above: Order Comment: . Performed By: #### L 3300.9900, L501.5200, L501.5000, L501.2300, L500.4050, L100.0500, L501.6710, L3410.2920 ####[facility] [address] [place], [address] Glucose [Mass/Vol] 106 mg/dL High 70-99 [facility] Comment on above: Order Comment: . Performed By: #### L 3300.9900, L501.5200, L501.5000, L501.2300, L500.4050, L100.0500, L501.6710, L3410.2920 ####[facility] [address] [place], [address] Potassium [Moles/Vol] 4.4 mmol/L Normal 3.3-5.1 [facility] Comment on above: Order Comment: . Performed By: #### L 3300.9900, L501.5200, L501.5000, L501.2300, L500.4050, L100.0500, L501.6710, L3410.2920 ####[facility] [facility] [address] [place], [address] Sodium [Moles/Vol] 138 mmol/L Normal 133-145 [facility] Comment on above: Order Comment: . Performed By: #### L 3300.9900, L501.5200, L501.5000, L501.2300, L500.4050, L100.0500, L501.6710, L3410.2920 ####[facility] [address] [place], [address] T PROT 6.1 g/dL Normal 5.9-8.4 [facility] Comment on above: Order Comment: . Performed By: #### L 3300.9900, L501.5200, L501.5000, L501.2300, L500.4050, L100.0500, L501.6710, L3410.2920 ####[facility] [address] [place], [address] Urea nitrogen [Mass/Vol] 16 mg/dL Normal 4-19 [facility] Comment on above: Order Comment: 205.1 Performed By: #### L 3300.9900, L501.5200, L501.5000, L501.2300, L500.4050, L100.0500, L501.6710, L3410.2920 ####[facility] [address] [place], [address] Magnesiumon 09-18-2024 Magnesium [Mass/Vol] 2.1 mg/dL Normal 1.5-2.2 [facility] Comment on above: Order Comment: Performed By: #### L 3300.9900, L501.5200, L501.5000, L501.2300, L500.4050, L100.0500, L501.6710, L3410.2920 ####[facility] [address] [place], [address] Phosphoruson 09-18-2024 Phosphate [Mass/Vol] 3.4 mg/dL Normal 2.7-4.5 [facility] Comment on above: Order Comment: Performed By: #### L 3300.9900, L501.5200, L501.5000, L501.2300, L500.4050, L100.0500, L501.6710, L3410.2920 ####[facility] [address] [place], [address] Triglycerideson 09-18-2024 Triglyceride [Mass/Vol] 69 mg/dL Normal [facility] Comment on above: Order Comment: . Result Comment: The drugs N-Acetylcysteine and Metamizole may falselydepress this assay.Normal range: <150 mg/dLBorderline High: 150-199 mg/dLHigh: 200-499 mg/dLVery High: >500 mg/dL Performed By: #### L 3300.9900, L501.5200, L501.5000, L501.2300, L500.4050, L100.0500, L501.6710, L3410.2920 ####[facility] [address] [place], [address] CBC-Complete Blood Cnt No Di ffon 09-15-2024 Erythrocyte distribution width (RBC) [Ratio] 20.3 % High 11.6-14.6 [facility] Comment on above: Order Comment: 205 Performed By: #### L 501.5000, L501.2300, L500.4050, L100.0500, L100.4500, L501.5200 ####[facility] [address] [place], [address] Hematocrit (Bld) [Volume fraction] 33.5 % Low 37-47 [facility] Comment on above: Order Comment: 205 Performed By: #### L 501.5000, L501.2300, L500.4050, L100.0500, L100.4500, L501.5200 ####[facility] [address] [place], [address] Hemoglobin (Bld) [Mass/Vol] 10.0 g/dL Low 12.0-15.0 [facility] Comment on above: Order Comment: 205 Performed By: #### L 501.5000, L501.2300, L500.4050, L100.0500, L100.4500, L501.5200 ####[facility] [address] [place], [address] MCH (RBC) [Entitic mass] 24.4 pg Low 27.0-32.0 [facility] Comment on above: Order Comment: 205 Performed By: #### L 501.5000, L501.2300, L500.4050, L100.0500, L100.4500, L501.5200 ####[facility] [address] [place], [address] MCHC (RBC) [Mass/Vol] 29.9 g/dL Low 32-36 [facility] Comment on above: Order Comment: 205 Performed By: #### L 501.5000, L501.2300, L500.4050, L100.0500, L100.4500, L501.5200 ####[facility] [address] [place], [address] MCV (RBC) [Entitic vol] 81.7 fL Normal 81-99 [facility] Comment on above: Order Comment: 205 Performed By: #### L 501.5000, L501.2300, L500.4050, L100.0500, L100.4500, L501.5200 ####[facility] [address] [place], [address] Platelet mean volume (Bld) [Entitic vol] 9.1 fL Normal 6.2-12.0 [facility] Comment on above: Order Comment: 205 Performed By: #### L 501.5000, L501.2300, L500.4050, L100.0500, L100.4500, L501.5200 ####[facility] [address] [place], [address] Platelets (Bld) [#/Vol] 489 10*3/uL High 150-450 [facility] Comment on above: Order Comment: 205 Performed By: #### L 501.5000, L501.2300, L500.4050, L100.0500, L100.4500, L501.5200 ####[facility] [address] [place], [address] RBC (Bld) [#/Vol] 4.10 10*6/uL Low 4.2-5.4 [facility] Comment on above: Order Comment: 205 Performed By: #### L 501.5000, L501.2300, L500.4050, L100.0500, L100.4500, L501.5200 ####[facility] [address] [place], [address] RDW SD 60.5 fl High 35.1-43.9 [facility] Comment on above: Order Comment: 205 Performed By: #### L 501.5000, L501.2300, L500.4050, L100.0500, L100.4500, L501.5200 ####[facility] [address] [place], [address] WBC (Bld) [#/Vol] 7.8 10*3/uL Normal 4.4-11.0 [facility] Comment on above: Order Comment: 205 Performed By: #### L 501.5000, L501.2300, L500.4050, L100.0500, L100.4500, L501.5200 ####[facility] [address] [place], [address] Comprehensive Metabolic Prof ilon 09-15-2024 Glucose [Mass/Vol] 41 mg/dL Invalid Interpretation Code 70-99 [facility] Comment on above: Order Comment: Result Comment: Crit ical Result(s) Called at: by:??Results read back bysame.Critical Result(s) Called to Lyla WittStoner:??Results read back by same. AMENDED REPORT 09/15/24 0816 GLU previously reported as: 41 *L mg/dLCritical Result(s) Called at: by:??Results read back bysame. Performed By: #### L 501.5000, L501.2300, L500.4050, L100.0500, L100.4500, L501.5200 ####[facility] [address] [place], [address] Differential Commenton 09-15 SMEAR COMMENT SCANNED Normal [facility] Comment on above: Order Comment: Result Comment: 2+ A NISOCYTOSIS Performed By: #### L 501.5000, L501.2300, L500.4050, L100.0500, L100.4500, L501.5200 ####[facility] [address] [place], [address] Magnesiumon 09-15-2024 Magnesium [Mass/Vol] 2.1 mg/dL Normal 1.5-2.2 [facility] Comment on above: Order Comment: 205 Performed By: #### L 501.5000, L501.2300, L500.4050, L100.0500, L100.4500, L501.5200 ####[facility] [address] [place], [address] Phosphoruson 09-15-2024 Phosphate [Mass/Vol] 3.0 mg/dL Normal 2.7-4.5 [facility] Comment on above: Order Comment: 205 Performed By: #### L 501.5000, L501.2300, L500.4050, L100.0500, L100.4500, L501.5200 ####[facility] [address] [place], [address] Triglycerideson 09-15-2024 Triglyceride [Mass/Vol] 64 mg/dL Normal [facility] Comment on above: Order Comment: 205 Result Comment: The drugs N-Acetylcysteine and Metamizole may falselydepress this assay.Normal range: <150 mg/dLBorderline High: 150-199 mg/dLHigh: 200-499 mg/dLVery High: >500 mg/dL Performed By: #### L 501.5000, L501.2300, L500.4050, L100.0500, L100.4500, L501.5200 ####[facility] [address] [place], [address] Zinc, Plasma or Serumon 08-29 ZINC,PLASMA/SER 53 ug/dL Normal 44-115 [facility] Comment on above: Order Comment: Test( s) 015184-Lyod, Plasma or Serumwas developed and its performance characteristicsdetermined by [employer]. It has not been cleared or approvedby the Food and Drug Administration. Result Comment: Dete ction Limit = 5Performed at: [facility] [address] [id number] Director: Elvie Fry MD, Phone: [phone] Performed By: #### L 501.5000, L100.4500, L100.0500, L3300.9900, L501.2300, L500.4050, L501.5200, L501.6710 ####[facility] [address] [place], [address] CBC-Complete Blood Cnt No Di ffon 09-13-2024 Erythrocyte distribution width (RBC) [Ratio] 21.2 % High 11.6-14.6 [facility] Comment on above: Order Comment: Performed By: #### L 100.0500, L100.4500, L501.2300, L501.5200, L500.4050, L501.5000 ####[facility] [address] [facility] [place] [place], [address] Hematocrit (Bld) [Volume fraction] 32.2 % Low 37-47 [facility] Comment on above: Order Comment: Performed By: #### L 100.0500, L100.4500, L501.2300, L501.5200, L500.4050, L501.5000 ####[facility] [address] [place], [address] Hemoglobin (Bld) [Mass/Vol] 9.6 g/dL Low 12.0-15.0 [facility] Comment on above: Order Comment: Performed By: #### L 100.0500, L100.4500, L501.2300, L501.5200, L500.4050, L501.5000 ####[facility] [address] [place], [address] MCH (RBC) [Entitic mass] 24.7 pg Low 27.0-32.0 [facility] Comment on above: Order Comment: Performed By: #### L 100.0500, L100.4500, L501.2300, L501.5200, L500.4050, L501.5000 ####[facility] [address] [place], [address] MCHC (RBC) [Mass/Vol] 29.8 g/dL Low 32-36 [facility] Comment on above: Order Comment: Performed By: #### L 100.0500, L100.4500, L501.2300, L501.5200, L500.4050, L501.5000 ####[facility] [address] [place], [address] MCV (RBC) [Entitic vol] 83.0 fL Normal 81-99 [facility] Comment on above: Order Comment: Performed By: #### L 100.0500, L100.4500, L501.2300, L501.5200, L500.4050, L501.5000 ####[facility] [address] [place], [address] Platelet mean volume (Bld) [Entitic vol] 9.2 fL Normal 6.2-12.0 [facility] Comment on above: Order Comment: Performed By: #### L 100.0500, L100.4500, L501.2300, L501.5200, L500.4050, L501.5000 ####[facility] [address] [place], [address] Platelets (Bld) [#/Vol] 421 10*3/uL Normal 150-450 [facility] Comment on above: Order Comment: Performed By: #### L 100.0500, L100.4500, L501.2300, L501.5200, L500.4050, L501.5000 ####[facility] [address] [place], [address] RBC (Bld) [#/Vol] 3.88 10*6/uL Low 4.2-5.4 [facility] Comment on above: Order Comment: Performed By: #### L 100.0500, L100.4500, L501.2300, L501.5200, L500.4050, L501.5000 ####[facility] [address] [place], [address] RDW SD 64.3 fl High 35.1-43.9 [facility] Comment on above: Order Comment: Performed By: #### L 100.0500, L100.4500, L501.2300, L501.5200, L500.4050, L501.5000 ####[facility] [address] [place], [address] WBC (Bld) [#/Vol] 6.7 10*3/uL Normal 4.4-11.0 [facility] Comment on above: Order Comment: Performed By: #### L 100.0500, L100.4500, L501.2300, L501.5200, L500.4050, L501.5000 ####[facility] [address] [place], [address] Comprehensive Metabolic Prof mnon 09-13-2024 Albumin [Mass/Vol] 3.1 g/dL Low 3.4-4.8 [facility] Comment on above: Order Comment: Performed By: #### L 100.0500, L100.4500, L501.2300, L501.5200, L500.4050, L501.5000 ####[facility] [address] [place], [address] Albumin/Globulin [Mass ratio] 1.0 {ratio} Normal 0.9-2.4 [facility] Comment on above: Order Comment: Performed By: #### L 100.0500, L100.4500, L501.2300, L501.5200, L500.4050, L501.5000 ####[facility] [address] [place], [address] ALK PHOS 159 U/L High 35-104 [facility] Comment on above: Order Comment: Performed By: #### L 100.0500, L100.4500, L501.2300, L501.5200, L500.4050, L501.5000 ####[facility] [address] [place], [address] ALT [Catalytic activity/Vol] 34 U/L Normal <=34 [facility] Comment on above: Order Comment: Performed By: #### L 100.0500, L100.4500, L501.2300, L501.5200, L500.4050, L501.5000 ####[facility] [address] [place], [address] AST [Catalytic activity/Vol] 36 U/L High <=31 [facility] Comment on above: Order Comment: Performed By: #### L 100.0500, L100.4500, L501.2300, L501.5200, L500.4050, L501.5000 ####[facility] [address] [place], [place], [address] Bilirubin [Mass/Vol] 0.18 mg/dL Normal 0.00-1.30 [facility] Comment on above: Order Comment: Performed By: #### L 100.0500, L100.4500, L501.2300, L501.5200, L500.4050, L501.5000 ####[facility] [address] [place], [address] BUN/CRE 40.8 RATIO High 10-20 [facility] Comment on above: Order Comment: Performed By: #### L 100.0500, L100.4500, L501.2300, L501.5200, L500.4050, L501.5000 ####[facility] [address] [place], [address] Calcium [Mass/Vol] 8.7 mg/dL Normal 7.6-11.0 [facility] Comment on above: Order Comment: Performed By: #### L 100.0500, L100.4500, L501.2300, L501.5200, L500.4050, L501.5000 ####[facility] [address] [place], [address] Chloride [Moles/Vol] 101 mmol/L Normal 98-108 [facility] Comment on above: Order Comment: Performed By: #### L 100.0500, L100.4500, L501.2300, L501.5200, L500.4050, L501.5000 ####[facility] [address] [place], [address] CO2 [Moles/Vol] 25.7 mmol/L Normal 21.0-32.0 [facility] Comment on above: Order Comment: Performed By: #### L 100.0500, L100.4500, L501.2300, L501.5200, L500.4050, L501.5000 ####[facility] [address] [place], [address] Creatinine [Mass/Vol] 0.41 mg/dL Low 0.70-1.20 [facility] Comment on above: Order Comment: Performed By: #### L 100.0500, L100.4500, L501.2300, L501.5200, L500.4050, L501.5000 ####[facility] [address] [place], [address] GAP 10 Normal 5-15 [facility] Comment on above: Order Comment: Performed By: #### L 100.0500, L100.4500, L501.2300, L501.5200, L500.4050, L501.5000 ####[facility] [address] [place], [address] GFR/1.73 sq M.predicted among non-blacks MDRD (S/P/Bld) [Vol rate/Area] 106 mL/min/{1.73_m2} Normal >60 [facility] Comment on above: Order Comment: Result Comment: mL/m in/1.73m2 CKD-EPI Creatinine Equation (2020) Performed By: #### L 100.0500, L100.4500, L501.2300, L501.5200, L500.4050, L501.5000 ####[facility] [address] [place], [address] Globulin (S) [Mass/Vol] 3.0 g/dL Normal 2.2-4.2 [facility] Comment on above: Order Comment: Performed By: #### L 100.0500, L100.4500, L501.2300, L501.5200, L500.4050, L501.5000 ####[facility] [address] [place], [address] Glucose [Mass/Vol] 104 mg/dL High 70-99 [facility] Comment on above: Order Comment: Performed By: #### L 100.0500, L100.4500, L501.2300, L501.5200, L500.4050, L501.5000 ####[facility] [address] [place], [address] Potassium [Moles/Vol] 4.3 mmol/L Normal 3.3-5.1 [facility] Comment on above: Order Comment: Performed By: #### L 100.0500, L100.4500, L501.2300, L501.5200, L500.4050, L501.5000 ####[facility] [address] [place], [address] Sodium [Moles/Vol] 137 mmol/L Normal 133-145 [facility] Comment on above: Order Comment: Performed By: #### L 100.0500, L100.4500, L501.2300, L501.5200, L500.4050, L501.5000 ####[facility] [address] [place], [address] T PROT 6.1 g/dL Normal 5.9-8.4 [facility] Comment on above: Order Comment: Performed By: #### L 100.0500, L100.4500, L501.2300, L501.5200, L500.4050, L501.5000 ####[facility] [address] [place], [address] Urea nitrogen [Mass/Vol] 17 mg/dL Normal 4-19 [facility] Comment on above: Order Comment: Performed By: #### L 100.0500, L100.4500, L501.2300, L501.5200, L500.4050, L501.5000 ####[facility] [address] [place], [address] Differential Commenton 09-13 SMEAR COMMENT COMMENT Normal [facility] Comment on above: Order Comment: Result Comment: 1+ A NISO. Performed By: #### L 100.0500, L100.4500, L501.2300, L501.5200, L500.4050, L501.5000 ####[facility] [address] [place], [address] Magnesiumon 09-13-2024 Magnesium [Mass/Vol] 2.1 mg/dL Normal 1.5-2.2 [facility] Comment on above: Order Comment: Performed By: #### L 100.0500, L100.4500, L501.2300, L501.5200, L500.4050, L501.5000 ####[facility] [address] [place], [address] Phosphoruson 09-13-2024 Phosphate [Mass/Vol] 3.7 mg/dL Normal 2.7-4.5 [facility] Comment on above: Order Comment: Performed By: #### L 100.0500, L100.4500, L501.2300, L501.5200, L500.4050, L501.5000 ####[facility] [address] [place], [address] Triglycerideson 09-13-2024 Triglyceride [Mass/Vol] 68 mg/dL Normal [facility] Comment on above: Order Comment: Result Comment: The drugs N-Acetylcysteine and Metamizole may falselydepress this assay.Normal range: <150 mg/dLBorderline High: 150-199 mg/dLHigh: 200-499 mg/dLVery High: >500 mg/dL Performed By: #### L 100.0500, L100.4500, L501.2300, L501.5200, L500.4050, L501.5000 ####[facility] [address] [place], [address] CBC-Complete Blood Cnt No Di ffon 09-11-2024 Erythrocyte distribution width (RBC) [Ratio] 22.1 % High 11.6-14.6 [facility] Comment on above: Performed By: #### L 501.5000, L100.4500, L100.0500, L3300.9900, L501.2300, L500.4050, L501.5200, L501.6710 ####[facility] [address] [place], [address] Hematocrit (Bld) [Volume fraction] 33.3 % Low 37-47 [facility] Comment on above: Performed By: #### L 501.5000, L100.4500, L100.0500, L3300.9900, L501.2300, L500.4050, L501.5200, L501.6710 ####[facility] [address] [place], [address] Hemoglobin (Bld) [Mass/Vol] 9.9 g/dL Low 12.0-15.0 [facility] Comment on above: Performed By: #### L 501.5000, L100.4500, L100.0500, L3300.9900, L501.2300, L500.4050, L501.5200, L501.6710 ####[facility] [address] [place], [address] MCH (RBC) [Entitic mass] 24.6 pg Low 27.0-32.0 [facility] Comment on above: Performed By: #### L 501.5000, L100.4500, L100.0500, L3300.9900, L501.2300, L500.4050, L501.5200, L501.6710 ####[facility] [address] [place], [address] MCHC (RBC) [Mass/Vol] 29.7 g/dL Low 32-36 [facility] Comment on above: Performed By: #### L 501.5000, L100.4500, L100.0500, L3300.9900, L501.2300, L500.4050, L501.5200, L501.6710 ####[facility] [address] [place], [address] MCV (RBC) [Entitic vol] 82.6 fL Normal 81-99 [facility] Comment on above: Performed By: #### L 501.5000, L100.4500, L100.0500, L3300.9900, L501.2300, L500.4050, L501.5200, L501.6710 ####[facility] [address] [place], [address] Platelet mean volume (Bld) [Entitic vol] 9.2 fL Normal 6.2-12.0 [facility] Comment on above: Performed By: #### L 501.5000, L100.4500, L100.0500, L3300.9900, L501.2300, L500.4050, L501.5200, L501.6710 ####[facility] [address] [place], [address] Platelets (Bld) [#/Vol] 456 10*3/uL High 150-450 [facility] Comment on above: Performed By: #### L 501.5000, L100.4500, L100.0500, L3300.9900, L501.2300, L500.4050, L501.5200, L501.6710 ####[facility] [address] [place], [address] RBC (Bld) [#/Vol] 4.03 10*6/uL Low 4.2-5.4 [facility] Comment on above: Performed By: #### L 501.5000, L100.4500, L100.0500, L3300.9900, L501.2300, L500.4050, L501.5200, L501.6710 ####[facility] [address] [place], [address] RDW SD 66.0 fl High 35.1-43.9 [facility] Comment on above: Performed By: #### L 501.5000, L100.4500, L100.0500, L3300.9900, L501.2300, L500.4050, L501.5200, L501.6710 ####[facility] [address] [place], [address] WBC (Bld) [#/Vol] 5.4 10*3/uL Normal 4.4-11.0 [facility] Comment on above: Performed By: #### L 501.5000, L100.4500, L100.0500, L3300.9900, L501.2300, L500.4050, L501.5200, L501.6710 ####[facility] [address] [place], [address] CRPon 09-11-2024 C-REACTIVE PROT 35.10 mg/L High 0.0-3.0 [facility] Comment on above: Performed By: #### L 501.5000, L100.4500, L100.0500, L3300.9900, L501.2300, L500.4050, L501.5200, L501.6710 ####[facility] [address] [place], [address] Comprehensive Metabolic Prof ilon 09-11-2024 Albumin [Mass/Vol] 3.3 g/dL Low 3.4-4.8 [facility] Comment on above: Performed By: #### L 501.5000, L100.4500, L100.0500, L3300.9900, L501.2300, L500.4050, L501.5200, L501.6710 ####[facility] [address] [place], [address] Albumin/Globulin [Mass ratio] 1.1 {ratio} Normal 0.9-2.4 [facility] Comment on above: Performed By: #### L 501.5000, L100.4500, L100.0500, L3300.9900, L501.2300, L500.4050, L501.5200, L501.6710 ####[facility] [address] [place], [address] ALK PHOS 164 U/L High 35-104 [facility] Comment on above: Performed By: #### L 501.5000, L100.4500, L100.0500, L3300.9900, L501.2300, L500.4050, L501.5200, L501.6710 ####[facility] [address] [place], [address] ALT [Catalytic activity/Vol] 35 U/L Normal <=34 [facility] Comment on above: Performed By: #### L 501.5000, L100.4500, L100.0500, L3300.9900, L501.2300, L500.4050, L501.5200, L501.6710 ####[facility] [address] [place], [address] AST [Catalytic activity/Vol] 36 U/L High <=31 [facility] Comment on above: Performed By: #### L 501.5000, L100.4500, L100.0500, L3300.9900, L501.2300, L500.4050, L501.5200, L501.6710 ####[facility] [address] [place], [place], [phone] Bilirubin [Mass/Vol] 0.20 mg/dL Normal 0.00-1.30 [facility] Comment on above: Performed By: #### L 501.5000, L100.4500, L100.0500, L3300.9900, L501.2300, L500.4050, L501.5200, L501.6710 ####[facility] [address] [place], [place], [phone] BUN/CRE 58.0 RATIO High 10-20 [facility] Comment on above: Performed By: #### L 501.5000, L100.4500, L100.0500, L3300.9900, L501.2300, L500.4050, L501.5200, L501.6710 ####[facility] [address] [place], [address] Calcium [Mass/Vol] 9.0 mg/dL Normal 7.6-11.0 [facility] Comment on above: Performed By: #### L 501.5000, L100.4500, L100.0500, L3300.9900, L501.2300, L500.4050, L501.5200, L501.6710 ####[facility] [address] [place], [address] Chloride [Moles/Vol] 100 mmol/L Normal 98-108 [facility] Comment on above: Performed By: #### L 501.5000, L100.4500, L100.0500, L3300.9900, L501.2300, L500.4050, L501.5200, L501.6710 ####[facility] [address] [place], [address] CO2 [Moles/Vol] 26.3 mmol/L Normal 21.0-32.0 [facility] Comment on above: Performed By: #### L 501.5000, L100.4500, L100.0500, L3300.9900, L501.2300, L500.4050, L501.5200, L501.6710 ####[facility] [address] [place], [address] Creatinine [Mass/Vol] 0.39 mg/dL Low 0.70-1.20 [facility] Comment on above: Performed By: #### L 501.5000, L100.4500, L100.0500, L3300.9900, L501.2300, L500.4050, L501.5200, L501.6710 ####[facility] [address] [place], [address] GAP 10 Normal 5-15 [facility] Comment on above: Performed By: #### L 501.5000, L100.4500, L100.0500, L3300.9900, L501.2300, L500.4050, L501.5200, L501.6710 ####[facility] [address] [place], [address] GFR/1.73 sq M.predicted among non-blacks MDRD (S/P/Bld) [Vol rate/Area] 108 mL/min/{1.73_m2} Normal >60 [facility] Comment on above: Result Comment: mL/m in/1.73m2 CKD-EPI Creatinine Equation (2020) Performed By: #### L 501.5000, L100.4500, L100.0500, L3300.9900, L501.2300, L500.4050, L501.5200, L501.6710 ####[facility] [address] [place], [address] Globulin (S) [Mass/Vol] 3.0 g/dL Normal 2.2-4.2 [facility] Comment on above: Performed By: #### L 501.5000, L100.4500, L100.0500, L3300.9900, L501.2300, L500.4050, L501.5200, L501.6710 ####[facility] [address] [place], [place], [id number] Glucose [Mass/Vol] 34 mg/dL Invalid Interpretation Code 70-99 [facility] Comment on above: Result Comment: [facility]ohr [facility] Performed By: #### L 501.5000, L100.4500, L100.0500, L3300.9900, L501.2300, L500.4050, L501.5200, L501.6710 ####[facility] [address] [place], [address] Potassium [Moles/Vol] 4.4 mmol/L Normal 3.3-5.1 [facility] Comment on above: Performed By: #### L 501.5000, L100.4500, L100.0500, L3300.9900, L501.2300, L500.4050, L501.5200, L501.6710 ####[facility] [address] [place], [address] Sodium [Moles/Vol] 136 mmol/L Normal 133-145 [facility] Comment on above: Performed By: #### L 501.5000, L100.4500, L100.0500, L3300.9900, L501.2300, L500.4050, L501.5200, L501.6710 ####[facility] [address] [place], [address] T PROT 6.2 g/dL Normal 5.9-8.4 [facility] Comment on above: Performed By: #### L 501.5000, L100.4500, L100.0500, L3300.9900, L501.2300, L500.4050, L501.5200, L501.6710 ####[facility] [address] [place], [place], [id number] Urea nitrogen [Mass/Vol] 23 mg/dL High 4-19 [facility] Comment on above: Performed By: #### L 501.5000, L100.4500, L100.0500, L3300.9900, L501.2300, L500.4050, L501.5200, L501.6710 ####[facility] [address] [place], [address] Differential Commenton 09-11 SMEAR COMMENT SCANNED Normal [facility] Comment on above: Result Comment: 2+ A NISOCYTOSIS Performed By: #### L 501.5000, L100.4500, L100.0500, L3300.9900, L501.2300, L500.4050, L501.5200, L501.6710 ####[facility] [address] [place], [address] Magnesiumon 09-11-2024 Magnesium [Mass/Vol] 2.1 mg/dL Normal 1.5-2.2 [facility] Comment on above: Performed By: #### L 501.5000, L100.4500, L100.0500, L3300.9900, L501.2300, L500.4050, L501.5200, L501.6710 ####[facility] [address] [place], [address] Phosphoruson 09-11-2024 Phosphate [Mass/Vol] 3.4 mg/dL Normal 2.7-4.5 [facility] Comment on above: Performed By: #### L 501.5000, L100.4500, L100.0500, L3300.9900, L501.2300, L500.4050, L501.5200, L501.6710 ####[facility] [address] [place], [address] Triglycerideson 09-11-2024 Triglyceride [Mass/Vol] 65 mg/dL Normal [facility] Comment on above: Result Comment: The drugs N-Acetylcysteine and Metamizole may falselydepress this assay.Normal range: <150 mg/dLBorderline High: 150-199 mg/dLHigh: 200-499 mg/dLVery High: >500 mg/dL Performed By: #### L 501.5000, L100.4500, L100.0500, L3300.9900, L501.2300, L500.4050, L501.5200, L501.6710 ####[facility] [address] [place], [place], [id number] CBC-Complete Blood Cnt No Di ffon 09-08-2024 Erythrocyte distribution width (RBC) [Ratio] 24.0 % High 11.6-14.6 [facility] Comment on above: Order Comment: 205.1 Performed By: #### L 500.4050, L501.5200, L100.0500, L501.2300, L501.5000 ####[facility] [address] [place], [address] Hematocrit (Bld) [Volume fraction] 30.9 % Low 37-47 [facility] Comment on above: Order Comment: 205.1 Performed By: #### L 500.4050, L501.5200, L100.0500, L501.2300, L501.5000 ####[facility] [address] [place], [address] Hemoglobin (Bld) [Mass/Vol] 9.1 g/dL Low 12.0-15.0 [facility] Comment on above: Order Comment: .1 Performed By: #### L 500.4050, L501.5200, L100.0500, L501.2300, L501.5000 ####[facility] [address] [place], [address] MCH (RBC) [Entitic mass] 24.4 pg Low 27.0-32.0 [facility] Comment on above: Order Comment: . Performed By: #### L 500.4050, L501.5200, L100.0500, L501.2300, L501.5000 ####[facility] [address] [place], [address] MCHC (RBC) [Mass/Vol] 29.4 g/dL Low 32-36 [facility] Comment on above: Order Comment: . Performed By: #### L 500.4050, L501.5200, L100.0500, L501.2300, L501.5000 ####[facility] [address] [place], [address] MCV (RBC) [Entitic vol] 82.8 fL Normal 81-99 [facility] Comment on above: Order Comment: .1 Performed By: #### L 500.4050, L501.5200, L100.0500, L501.2300, L501.5000 ####[facility] [address] [place], [address] Platelet mean volume (Bld) [Entitic vol] 9.1 fL Normal 6.2-12.0 [facility] Comment on above: Order Comment: 205.1 Performed By: #### L 500.4050, L501.5200, L100.0500, L501.2300, L501.5000 ####[facility] [address] [place], [address] Platelets (Bld) [#/Vol] 410 10*3/uL Normal 150-450 [facility] Comment on above: Order Comment: 205.1 Performed By: #### L 500.4050, L501.5200, L100.0500, L501.2300, L501.5000 ####[facility] [address] [place], [address] RBC (Bld) [#/Vol] 3.73 10*6/uL Low 4.2-5.4 [facility] Comment on above: Order Comment: .1 Performed By: #### L 500.4050, L501.5200, L100.0500, L501.2300, L501.5000 ####[facility] [address] [place], [address] RDW SD 73.0 fl High 35.1-43.9 [facility] Comment on above: Order Comment: 205.1 Performed By: #### L 500.4050, L501.5200, L100.0500, L501.2300, L501.5000 ####[facility] [address] [place], [address] WBC (Bld) [#/Vol] 4.5 10*3/uL Normal 4.4-11.0 [facility] Comment on above: Order Comment: 205.1 Performed By: #### L 500.4050, L501.5200, L100.0500, L501.2300, L501.5000 ####[facility] [address] [place], [address] Comprehensive Metabolic Prof ilon 09-08-2024 Albumin [Mass/Vol] 3.0 g/dL Low 3.4-4.8 [facility] Comment on above: Order Comment: .1 Performed By: #### L 500.4050, L501.5200, L100.0500, L501.2300, L501.5000 ####[facility] [address], [address] Albumin/Globulin [Mass ratio] 1.0 {ratio} Normal 0.9-2.4 [facility] Comment on above: Order Comment: .1 Performed By: #### L 500.4050, L501.5200, L100.0500, L501.2300, L501.5000 ####[facility] [address] [place], [address] ALK PHOS 149 U/L High 35-104 [facility] Comment on above: Order Comment: . Performed By: #### L 500.4050, L501.5200, L100.0500, L501.2300, L501.5000 ####[facility] [address] [place], [address] ALT [Catalytic activity/Vol] 31 U/L Normal <=34 [facility] Comment on above: Order Comment: .1 Performed By: #### L 500.4050, L501.5200, L100.0500, L501.2300, L501.5000 ####[facility] [address] [place], [address] AST [Catalytic activity/Vol] 41 U/L High <=31 [facility] Comment on above: Order Comment: .1 Performed By: #### L 500.4050, L501.5200, L100.0500, L501.2300, L501.5000 ####[facility] [address] [place], [address] BUN/CRE 59.9 RATIO High 10-20 [facility] Comment on above: Order Comment: 205.1 Performed By: #### L 500.4050, L501.5200, L100.0500, L501.2300, L501.5000 ####[facility] [address] [place], [address] Calcium [Mass/Vol] 8.6 mg/dL Normal 7.6-11.0 [facility] Comment on above: Order Comment: 205.1 Performed By: #### L 500.4050, L501.5200, L100.0500, L501.2300, L501.5000 ####[facility] [address] [place], [address] Chloride [Moles/Vol] 102 mmol/L Normal 98-108 [facility] Comment on above: Order Comment: 205.1 Performed By: #### L 500.4050, L501.5200, L100.0500, L501.2300, L501.5000 ####[facility] [address] [place], [address] CO2 [Moles/Vol] 24.1 mmol/L Normal 21.0-32.0 [facility] Comment on above: Order Comment: 205.1 Performed By: #### L 500.4050, L501.5200, L100.0500, L501.2300, L501.5000 ####[facility] [address] [place], [address] Creatinine [Mass/Vol] 0.33 mg/dL Low 0.70-1.20 [facility] Comment on above: Order Comment: 205.1 Performed By: #### L 500.4050, L501.5200, L100.0500, L501.2300, L501.5000 ####[facility] [address] [place], [address] GAP 10 Normal 5-15 [facility] Comment on above: Order Comment: 205.1 Performed By: #### L 500.4050, L501.5200, L100.0500, L501.2300, L501.5000 ####[facility] [address] [place], [address] GFR/1.73 sq M.predicted among non-blacks MDRD (S/P/Bld) [Vol rate/Area] 112 mL/min/{1.73_m2} Normal >60 [facility] Comment on above: Order Comment: .1 Result Comment: mL/m in/1.73m2 CKD-EPI Creatinine Equation (2020) Performed By: #### L 500.4050, L501.5200, L100.0500, L501.2300, L501.5000 ####[facility] [address] [place], [address] Globulin (S) [Mass/Vol] 3.0 g/dL Normal 2.2-4.2 [facility] Comment on above: Order Comment: . Performed By: #### L 500.4050, L501.5200, L100.0500, L501.2300, L501.5000 ####[facility] [address] [place], [address] Glucose [Mass/Vol] 87 mg/dL Normal 70-99 [facility] Comment on above: Order Comment: . Performed By: #### L 500.4050, L501.5200, L100.0500, L501.2300, L501.5000 ####[facility] [address] [place], [address] Potassium [Moles/Vol] 4.2 mmol/L Normal 3.3-5.1 [facility] Comment on above: Order Comment: . Performed By: #### L 500.4050, L501.5200, L100.0500, L501.2300, L501.5000 ####[facility] [address] [place], [address] Sodium [Moles/Vol] 136 mmol/L Normal 133-145 [facility] Comment on above: Order Comment: 205.1 Performed By: #### L 500.4050, L501.5200, L100.0500, L501.2300, L501.5000 ####[facility] [address] [place], [address] T BILI < 0.15 Normal 0.00-1.30 [facility] Comment on above: Order Comment: 205.1 Performed By: #### L 500.4050, L501.5200, L100.0500, L501.2300, L501.5000 ####[facility] [address] [place], [address] T PROT 6.0 g/dL Normal 5.9-8.4 [facility] Comment on above: Order Comment: 205.1 Performed By: #### L 500.4050, L501.5200, L100.0500, L501.2300, L501.5000 ####[facility] [address] [place], [address] Urea nitrogen [Mass/Vol] 20 mg/dL High 4-19 [facility] Comment on above: Order Comment: 205.1 Performed By: #### L 500.4050, L501.5200, L100.0500, L501.2300, L501.5000 ####[facility] [address] [place], [address] Magnesiumon 09-08-2024 Magnesium [Mass/Vol] 2.1 mg/dL Normal 1.5-2.2 [facility] Comment on above: Order Comment: 205.1 Performed By: #### L 500.4050, L501.5200, L100.0500, L501.2300, L501.5000 ####[facility] [address] [place], [address] Phosphoruson 09-08-2024 Phosphate [Mass/Vol] 3.6 mg/dL Normal 2.7-4.5 [facility] Comment on above: Order Comment: 205.1 Performed By: #### L 500.4050, L501.5200, L100.0500, L501.2300, L501.5000 ####[facility] [address] [place], [address] Triglycerideson 09-08-2024 Triglyceride [Mass/Vol] 64 mg/dL Normal [facility] Comment on above: Order Comment: 205.1 Result Comment: The drugs N-Acetylcysteine and Metamizole may falselydepress this assay.Normal range: <150 mg/dLBorderline High: 150-199 mg/dLHigh: 200-499 mg/dLVery High: >500 mg/dL Performed By: #### L 500.4050, L501.5200, L100.0500, L501.2300, L501.5000 ####[facility] [address] [place], [address] CBC-Complete Blood Cnt No Di ffon 09-06-2024 Erythrocyte distribution width (RBC) [Ratio] 25.5 % High 11.6-14.6 [facility] Comment on above: Order Comment: 205 Performed By: #### L 500.4050, L100.0500, L501.2300, L501.5200, L501.5000 ####[facility] [address] [place], [address] Hematocrit (Bld) [Volume fraction] 32.8 % Low 37-47 [facility] Comment on above: Order Comment: 205 Performed By: #### L 500.4050, L100.0500, L501.2300, L501.5200, L501.5000 ####[facility] [address] [place], [address] Hemoglobin (Bld) [Mass/Vol] 9.5 g/dL Low 12.0-15.0 [facility] Comment on above: Order Comment: 205 Performed By: #### L 500.4050, L100.0500, L501.2300, L501.5200, L501.5000 ####[facility] [address] [place], [address] MCH (RBC) [Entitic mass] 24.4 pg Low 27.0-32.0 [facility] Comment on above: Order Comment: 205 Performed By: #### L 500.4050, L100.0500, L501.2300, L501.5200, L501.5000 ####[facility] [address] [place], [address] MCHC (RBC) [Mass/Vol] 29.0 g/dL Low 32-36 [facility] Comment on above: Order Comment: 205 Performed By: #### L 500.4050, L100.0500, L501.2300, L501.5200, L501.5000 ####[facility] [address] [place], [address] MCV (RBC) [Entitic vol] 84.1 fL Normal 81-99 [facility] Comment on above: Order Comment: 205 Performed By: #### L 500.4050, L100.0500, L501.2300, L501.5200, L501.5000 ####[facility] [address] [place], [address] Platelet mean volume (Bld) [Entitic vol] 9.3 fL Normal 6.2-12.0 [facility] Comment on above: Order Comment: 205 Performed By: #### L 500.4050, L100.0500, L501.2300, L501.5200, L501.5000 ####[facility] [address] [place], [address] Platelets (Bld) [#/Vol] 415 10*3/uL Normal 150-450 [facility] Comment on above: Order Comment: 205 Performed By: #### L 500.4050, L100.0500, L501.2300, L501.5200, L501.5000 ####[facility] [address] [place], [address] RBC (Bld) [#/Vol] 3.90 10*6/uL Low 4.2-5.4 [facility] Comment on above: Order Comment: 205 Performed By: #### L 500.4050, L100.0500, L501.2300, L501.5200, L501.5000 ####[facility] [address] [place], [address] RDW SD 76.0 fl High 35.1-43.9 [facility] Comment on above: Order Comment: 205 Performed By: #### L 500.4050, L100.0500, L501.2300, L501.5200, L501.5000 ####[facility] [address] [place], [address] WBC (Bld) [#/Vol] 4.7 10*3/uL Normal 4.4-11.0 [facility] Comment on above: Order Comment: 205 Performed By: #### L 500.4050, L100.0500, L501.2300, L501.5200, L501.5000 ####[facility] [address] [place], [address] Comprehensive Metabolic Prof ilon 09-06-2024 Albumin [Mass/Vol] 3.1 g/dL Low 3.4-4.8 [facility] Comment on above: Order Comment: 205 Performed By: #### L 500.4050, L100.0500, L501.2300, L501.5200, L501.5000 ####[facility] [address] [place], [address] Albumin/Globulin [Mass ratio] 1.0 {ratio} Normal 0.9-2.4 [facility] Comment on above: Order Comment: 205 Performed By: #### L 500.4050, L100.0500, L501.2300, L501.5200, L501.5000 ####[facility] [address] [place], [address] ALK PHOS 151 U/L High 35-104 [facility] Comment on above: Order Comment: 205 Performed By: #### L 500.4050, L100.0500, L501.2300, L501.5200, L501.5000 ####[facility] [address] [place], [address] ALT [Catalytic activity/Vol] 38 U/L High <=34 [facility] Comment on above: Order Comment: 205 Performed By: #### L 500.4050, L100.0500, L501.2300, L501.5200, L501.5000 ####[facility] [address] [place], [address] AST [Catalytic activity/Vol] 52 U/L High <=31 [facility] Comment on above: Order Comment: 205 Result Comment: Hemo lysis present, Results??could be affected.?? Performed By: #### L 500.4050, L100.0500, L501.2300, L501.5200, L501.5000 ####[facility] [address] [place], [address] Bilirubin [Mass/Vol] 0.22 mg/dL Normal 0.00-1.30 [facility] Comment on above: Order Comment: 205 Performed By: #### L 500.4050, L100.0500, L501.2300, L501.5200, L501.5000 ####[facility] [address] [place], [address] BUN/CRE 75.5 RATIO High 10-20 [facility] Comment on above: Order Comment: 205 Performed By: #### L 500.4050, L100.0500, L501.2300, L501.5200, L501.5000 ####[facility] [address] [place], [address] Calcium [Mass/Vol] 8.7 mg/dL Normal 7.6-11.0 [facility] Comment on above: Order Comment: 205 Performed By: #### L 500.4050, L100.0500, L501.2300, L501.5200, L501.5000 ####[facility] [address] [place], [address] Chloride [Moles/Vol] 102 mmol/L Normal 98-108 [facility] Comment on above: Order Comment: 205 Performed By: #### L 500.4050, L100.0500, L501.2300, L501.5200, L501.5000 ####[facility] [address] [place], [address] CO2 [Moles/Vol] 24.3 mmol/L Normal 21.0-32.0 [facility] Comment on above: Order Comment: 205 Performed By: #### L 500.4050, L100.0500, L501.2300, L501.5200, L501.5000 ####[facility] [address] [place], [address] Creatinine [Mass/Vol] 0.42 mg/dL Low 0.70-1.20 [facility] Comment on above: Order Comment: 205 Performed By: #### L 500.4050, L100.0500, L501.2300, L501.5200, L501.5000 ####[facility] [address] [place], [address] GAP 10 Normal 5-15 [facility] Comment on above: Order Comment: 205 Performed By: #### L 500.4050, L100.0500, L501.2300, L501.5200, L501.5000 ####[facility] [address] [place], [address] GFR/1.73 sq M.predicted among non-blacks MDRD (S/P/Bld) [Vol rate/Area] 106 mL/min/{1.73_m2} Normal >60 [facility] Comment on above: Order Comment: 205 Result Comment: mL/m in/1.73m2 CKD-EPI Creatinine Equation (2020) Performed By: #### L 500.4050, L100.0500, L501.2300, L501.5200, L501.5000 ####[facility] [address] [place], [address] Globulin (S) [Mass/Vol] 3.2 g/dL Normal 2.2-4.2 [facility] Comment on above: Order Comment: 205 Performed By: #### L 500.4050, L100.0500, L501.2300, L501.5200, L501.5000 ####[facility] [address] [place], [address] Glucose [Mass/Vol] 104 mg/dL High 70-99 [facility] Comment on above: Order Comment: 205 Performed By: #### L 500.4050, L100.0500, L501.2300, L501.5200, L501.5000 ####[facility] [address] [place], [address] Potassium [Moles/Vol] 4.7 mmol/L Normal 3.3-5.1 [facility] Comment on above: Order Comment: 205 Result Comment: Hemo lysis present, Results??could be affected.?? Performed By: #### L 500.4050, L100.0500, L501.2300, L501.5200, L501.5000 ####[facility] [address] [place], [address] Sodium [Moles/Vol] 136 mmol/L Normal 133-145 [facility] Comment on above: Order Comment: 205 Performed By: #### L 500.4050, L100.0500, L501.2300, L501.5200, L501.5000 ####[facility] [address] [place], [address] T PROT 6.3 g/dL Normal 5.9-8.4 [facility] Comment on above: Order Comment: 205 Performed By: #### L 500.4050, L100.0500, L501.2300, L501.5200, L501.5000 ####[facility] [address] [place], [address] Urea nitrogen [Mass/Vol] 31 mg/dL High 4-19 [facility] Comment on above: Order Comment: 205 Performed By: #### L 500.4050, L100.0500, L501.2300, L501.5200, L501.5000 ####[facility] [address] [place], [address] Magnesiumon 09-06-2024 Magnesium [Mass/Vol] 2.4 mg/dL High 1.5-2.2 [facility] Comment on above: Order Comment: 205 Performed By: #### L 500.4050, L100.0500, L501.2300, L501.5200, L501.5000 ####[facility] [address] [place], [address] Phosphoruson 09-06-2024 Phosphate [Mass/Vol] 4.0 mg/dL Normal 2.7-4.5 [facility] Comment on above: Order Comment: 205 Performed By: #### L 500.4050, L100.0500, L501.2300, L501.5200, L501.5000 ####[facility] [address] [place], [address] Triglycerideson 09-06-2024 Triglyceride [Mass/Vol] 49 mg/dL Normal [facility] Comment on above: Order Comment: 205 Result Comment: The drugs N-Acetylcysteine and Metamizole may falselydepress this assay.Normal range: <150 mg/dLBorderline High: 150-199 mg/dLHigh: 200-499 mg/dLVery High: >500 mg/dL Performed By: #### L 500.4050, L100.0500, L501.2300, L501.5200, L501.5000 ####[facility] [address] [place] [place], [address] Zinc, WHOLE BLOODon 09-07-19 25 Zinc Whole Bld 535 ug/dL Normal 440-860 [facility] Comment on above: Order Comment: Test( s) [id number], Whole Bloodwas developed and its performance characteristicsdetermined by [employer]. It has not been cleared or approvedby the Food and Drug Administration. Result Comment: Perf ormed at: [facility] [id number] Director: Elvie Fry MD, Phone: [phone] Performed By: #### L 100.0500, L500.4050, L501.5200, L501.5000, L506.1001, L501.6710, L503.0106, L501.2300, L100.4500, L3300.9910 ####[facility] [address] [place], [place], [id number] CBC-Complete Blood Cnt No Di ffon 09-04-2024 Erythrocyte distribution width (RBC) [Ratio] 27.6 % High 11.6-14.6 [facility] Comment on above: Order Comment: Performed By: #### L 100.0500, L500.4050, L501.5200, L501.5000, L506.1001, L501.6710, L503.0106, L501.2300, L100.4500, L3300.9910 ####[facility] [address] [place], [place], [phone] Hematocrit (Bld) [Volume fraction] 32.0 % Low 37-47 [facility] Comment on above: Order Comment: Performed By: #### L 100.0500, L500.4050, L501.5200, L501.5000, L506.1001, L501.6710, L503.0106, L501.2300, L100.4500, L3300.9910 ####[facility] [address] [place], [address] Hemoglobin (Bld) [Mass/Vol] 9.2 g/dL Low 12.0-15.0 [facility] Comment on above: Order Comment: Performed By: #### L 100.0500, L500.4050, L501.5200, L501.5000, L506.1001, L501.6710, L503.0106, L501.2300, L100.4500, L3300.9910 ####[facility] [address] [place], [place], [phone] MCH (RBC) [Entitic mass] 24.4 pg Low 27.0-32.0 [facility] Comment on above: Order Comment: Performed By: #### L 100.0500, L500.4050, L501.5200, L501.5000, L506.1001, L501.6710, L503.0106, L501.2300, L100.4500, L3300.9910 ####[facility] [address] [place], [place], [phone] MCHC (RBC) [Mass/Vol] 28.8 g/dL Low 32-36 [facility] Comment on above: Order Comment: Performed By: #### L 100.0500, L500.4050, L501.5200, L501.5000, L506.1001, L501.6710, L503.0106, L501.2300, L100.4500, L3300.9910 ####[facility] [address] [place], [place], [phone] MCV (RBC) [Entitic vol] 84.9 fL Normal 81-99 [facility] Comment on above: Order Comment: Performed By: #### L 100.0500, L500.4050, L501.5200, L501.5000, L506.1001, L501.6710, L503.0106, L501.2300, L100.4500, L3300.9910 ####[facility] [address] [place], [address] Platelet mean volume (Bld) [Entitic vol] 9.2 fL Normal 6.2-12.0 [facility] Comment on above: Order Comment: Performed By: #### L 100.0500, L500.4050, L501.5200, L501.5000, L506.1001, L501.6710, L503.0106, L501.2300, L100.4500, L3300.9910 ####[facility] [address] [place], [address] Platelets (Bld) [#/Vol] 456 10*3/uL High 150-450 [facility] Comment on above: Order Comment: Performed By: #### L 100.0500, L500.4050, L501.5200, L501.5000, L506.1001, L501.6710, L503.0106, L501.2300, L100.4500, L3300.9910 ####[facility] [address] [place], [address] RBC (Bld) [#/Vol] 3.77 10*6/uL Low 4.2-5.4 [facility] Comment on above: Order Comment: Performed By: #### L 100.0500, L500.4050, L501.5200, L501.5000, L506.1001, L501.6710, L503.0106, L501.2300, L100.4500, L3300.9910 ####[facility] [address] [place], [place], [phone] RDW SD 80.7 fl High 35.1-43.9 [facility] Comment on above: Order Comment: Performed By: #### L 100.0500, L500.4050, L501.5200, L501.5000, L506.1001, L501.6710, L503.0106, L501.2300, L100.4500, L3300.9910 ####[facility] [address] [place], [place], [phone] WBC (Bld) [#/Vol] 4.9 10*3/uL Normal 4.4-11.0 [facility] Comment on above: Order Comment: Performed By: #### L 100.0500, L500.4050, L501.5200, L501.5000, L506.1001, L501.6710, L503.0106, L501.2300, L100.4500, L3300.9910 ####[facility] [address] [place], [place], [phone] CRPon 09-04-2024 C-REACTIVE PROT 34.40 mg/L High 0.0-3.0 [facility] Comment on above: Order Comment: Performed By: #### L 100.0500, L500.4050, L501.5200, L501.5000, L506.1001, L501.6710, L503.0106, L501.2300, L100.4500, L3300.9910 ####[facility] [address] [place], [place], [phone] Comprehensive Metabolic Prof ilon 09-04-2024 Albumin [Mass/Vol] 3.0 g/dL Low 3.4-4.8 [facility] Comment on above: Order Comment: Performed By: #### L 100.0500, L500.4050, L501.5200, L501.5000, L506.1001, L501.6710, L503.0106, L501.2300, L100.4500, L3300.9910 ####[facility] [address] [place], [address] Albumin/Globulin [Mass ratio] 1.0 {ratio} Normal 0.9-2.4 [facility] Comment on above: Order Comment: Performed By: #### L 100.0500, L500.4050, L501.5200, L501.5000, L506.1001, L501.6710, L503.0106, L501.2300, L100.4500, L3300.9910 ####[facility] [address] [facility] [place], [address] ALK PHOS 139 U/L High 35-104 [facility] Comment on above: Order Comment: Performed By: #### L 100.0500, L500.4050, L501.5200, L501.5000, L506.1001, L501.6710, L503.0106, L501.2300, L100.4500, L3300.9910 ####[facility] [address] [facility] [place], [address] ALT [Catalytic activity/Vol] 23 U/L Normal <=34 [facility] Comment on above: Order Comment: Performed By: #### L 100.0500, L500.4050, L501.5200, L501.5000, L506.1001, L501.6710, L503.0106, L501.2300, L100.4500, L3300.9910 ####[facility] [address] [facility] [place], [address] AST [Catalytic activity/Vol] 33 U/L High <=31 [facility] Comment on above: Order Comment: Performed By: #### L 100.0500, L500.4050, L501.5200, L501.5000, L506.1001, L501.6710, L503.0106, L501.2300, L100.4500, L3300.9910 ####[facility] [address] [place], [address] Bilirubin [Mass/Vol] 0.24 mg/dL Normal 0.00-1.30 [facility] Comment on above: Order Comment: Performed By: #### L 100.0500, L500.4050, L501.5200, L501.5000, L506.1001, L501.6710, L503.0106, L501.2300, L100.4500, L3300.9910 ####[facility] [address] [facility] [address] [place], [place], [phone]) BUN/CRE 46.6 RATIO High 10-20 [facility] Comment on above: Order Comment: Performed By: #### L 100.0500, L500.4050, L501.5200, L501.5000, L506.1001, L501.6710, L503.0106, L501.2300, L100.4500, L3300.9910 ####[facility] [address] [place], [phone](810) Calcium [Mass/Vol] 8.8 mg/dL Normal 7.6-11.0 [facility] Comment on above: Order Comment: Performed By: #### L 100.0500, L500.4050, L501.5200, L501.5000, L506.1001, L501.6710, L503.0106, L501.2300, L100.4500, L3300.9910 ####[facility] [address], [address](475) Chloride [Moles/Vol] 103 mmol/L Normal 98-108 [facility] Comment on above: Order Comment: Performed By: #### L 100.0500, L500.4050, L501.5200, L501.5000, L506.1001, L501.6710, L503.0106, L501.2300, L100.4500, L3300.9910 ####[facility] [address] [place], [place], [phone] CO2 [Moles/Vol] 26.6 mmol/L Normal 21.0-32.0 [facility] Comment on above: Order Comment: Performed By: #### L 100.0500, L500.4050, L501.5200, L501.5000, L506.1001, L501.6710, L503.0106, L501.2300, L100.4500, L3300.9910 ####[facility] [address] [place], [address] Creatinine [Mass/Vol] 0.39 mg/dL Low 0.70-1.20 [facility] Comment on above: Order Comment: Performed By: #### L 100.0500, L500.4050, L501.5200, L501.5000, L506.1001, L501.6710, L503.0106, L501.2300, L100.4500, L3300.9910 ####[facility] [address] [place], [address] GAP 9 Normal 5-15 [facility] Comment on above: Order Comment: Performed By: #### L 100.0500, L500.4050, L501.5200, L501.5000, L506.1001, L501.6710, L503.0106, L501.2300, L100.4500, L3300.9910 ####[facility] [address] [place], [address](242) GFR/1.73 sq M.predicted among non-blacks MDRD (S/P/Bld) [Vol rate/Area] 108 mL/min/{1.73_m2} Normal >60 [facility] Comment on above: Order Comment: Result Comment: mL/m in/1.73m2 CKD-EPI Creatinine Equation (2020) Performed By: #### L 100.0500, L500.4050, L501.5200, L501.5000, L506.1001, L501.6710, L503.0106, L501.2300, L100.4500, L3300.9910 ####[facility] [address] [place], [place], [phone] Globulin (S) [Mass/Vol] 3.1 g/dL Normal 2.2-4.2 [facility] Comment on above: Order Comment: Performed By: #### L 100.0500, L500.4050, L501.5200, L501.5000, L506.1001, L501.6710, L503.0106, L501.2300, L100.4500, L3300.9910 ####[facility] [address] [place], [place], [phone] Glucose [Mass/Vol] 76 mg/dL Normal 70-99 [facility] Comment on above: Order Comment: Performed By: #### L 100.0500, L500.4050, L501.5200, L501.5000, L506.1001, L501.6710, L503.0106, L501.2300, L100.4500, L3300.9910 ####[facility] [address] [place], [place], [phone] Potassium [Moles/Vol] 4.1 mmol/L Normal 3.3-5.1 [facility] Comment on above: Order Comment: Performed By: #### L 100.0500, L500.4050, L501.5200, L501.5000, L506.1001, L501.6710, L503.0106, L501.2300, L100.4500, L3300.9910 ####[facility] [address] [place], [address] Sodium [Moles/Vol] 138 mmol/L Normal 133-145 [facility] Comment on above: Order Comment: Performed By: #### L 100.0500, L500.4050, L501.5200, L501.5000, L506.1001, L501.6710, L503.0106, L501.2300, L100.4500, L3300.9910 ####[facility] [address] [place], [place], [address] T PROT 6.1 g/dL Normal 5.9-8.4 [facility] Comment on above: Order Comment: Performed By: #### L 100.0500, L500.4050, L501.5200, L501.5000, L506.1001, L501.6710, L503.0106, L501.2300, L100.4500, L3300.9910 ####[facility] [address] [facility] [place], [place], [phone] Urea nitrogen [Mass/Vol] 18 mg/dL Normal 4-19 [facility] Comment on above: Order Comment: Performed By: #### L 100.0500, L500.4050, L501.5200, L501.5000, L506.1001, L501.6710, L503.0106, L501.2300, L100.4500, L3300.9910 ####[facility] [address] [facility] [place], [place], [address] Differential Commenton 09-04 SMEAR COMMENT Normal [facility] Comment on above: Order Comment: Result Comment: ANIS OCYTOSIS 1+ AMENDED REPORT 09/04/24 1047 SMEAR COMMENT previously reported as:ANISOCYTOSIS 1+ Performed By: #### L 100.0500, L500.4050, L501.5200, L501.5000, L506.1001, L501.6710, L503.0106, L501.2300, L100.4500, L3300.9910 ####[facility] [address] [place], [address] Magnesiumon 09-04-2024 Magnesium [Mass/Vol] 2.2 mg/dL Normal 1.5-2.2 [facility] Comment on above: Order Comment: Performed By: #### L 100.0500, L500.4050, L501.5200, L501.5000, L506.1001, L501.6710, L503.0106, L501.2300, L100.4500, L3300.9910 ####[facility] [address] [place], [address] Phosphoruson 09-04-2024 Phosphate [Mass/Vol] 3.9 mg/dL Normal 2.7-4.5 [facility] Comment on above: Order Comment: Performed By: #### L 100.0500, L500.4050, L501.5200, L501.5000, L506.1001, L501.6710, L503.0106, L501.2300, L100.4500, L3300.9910 ####[facility] [address] [place], [place], [address] Triglycerideson 09-04-2024 Triglyceride [Mass/Vol] 66 mg/dL Normal [facility] Comment on above: Order Comment: Result Comment: The drugs N-Acetylcysteine and Metamizole may falselydepress this assay.Normal range: <150 mg/dLBorderline High: 150-199 mg/dLHigh: 200-499 mg/dLVery High: >500 mg/dL Performed By: #### L 100.0500, L500.4050, L501.5200, L501.5000, L506.1001, L501.6710, L503.0106, L501.2300, L100.4500, L3300.9910 ####[facility] [address] [place], [place], [phone] Vitamin B12on 09-04-2024 Cobalamin (Vitamin B12) [Mass/Vol] 401 pg/mL Normal 180-914 [facility] Comment on above: Order Comment: Performed By: #### L 100.0500, L500.4050, L501.5200, L501.5000, L506.1001, L501.6710, L503.0106, L501.2300, L100.4500, L3300.9910 ####[facility] [address] [place], [address] Vitamin D,25 Hydroxyon 09-04 Vitamin D 25-OH 20.4 ng/mL Low 30-100 [facility] Comment on above: Order Comment: Result Comment: Kim min D StatusDeficiency: <20 ng/mL (50nmol/L)Insufficiency: 20-30 ng/mL (50-75 nmol/L)Sufficiency: 30-100 ng/mL (75-250 nmol/L)Toxicity: >100 ng/mL (>250 nmol/L) Performed By: #### L 100.0500, L500.4050, L501.5200, L501.5000, L506.1001, L501.6710, L503.0106, L501.2300, L100.4500, L3300.9910 ####[facility] [address] [place], [place], [phone] CBC-Complete Blood Cnt No Di ffon 09-01-2024 Erythrocyte distribution width (RBC) [Ratio] 29.7 % High 11.6-14.6 [facility] Comment on above: Order Comment: Performed By: #### L 501.5000, L501.2300, L100.4500, L100.0500, L501.5200, L500.4050 ####[facility] [address] [place], [address] Hematocrit (Bld) [Volume fraction] 32.2 % Low 37-47 [facility] Comment on above: Order Comment: Performed By: #### L 501.5000, L501.2300, L100.4500, L100.0500, L501.5200, L500.4050 ####[facility] [address] [place], [address] Hemoglobin (Bld) [Mass/Vol] 9.2 g/dL Low 12.0-15.0 [facility] Comment on above: Order Comment: Performed By: #### L 501.5000, L501.2300, L100.4500, L100.0500, L501.5200, L500.4050 ####[facility] [address] [place], [address] MCH (RBC) [Entitic mass] 23.8 pg Low 27.0-32.0 [facility] Comment on above: Order Comment: Performed By: #### L 501.5000, L501.2300, L100.4500, L100.0500, L501.5200, L500.4050 ####[facility] [address] [place], [address] MCHC (RBC) [Mass/Vol] 28.6 g/dL Low 32-36 [facility] Comment on above: Order Comment: Performed By: #### L 501.5000, L501.2300, L100.4500, L100.0500, L501.5200, L500.4050 ####[facility] [address] [place], [address] MCV (RBC) [Entitic vol] 83.2 fL Normal 81-99 [facility] Comment on above: Order Comment: Performed By: #### L 501.5000, L501.2300, L100.4500, L100.0500, L501.5200, L500.4050 ####[facility] [address] [place], [address] Platelet mean volume (Bld) [Entitic vol] 9.0 fL Normal 6.2-12.0 [facility] Comment on above: Order Comment: - Performed By: #### L 501.5000, L501.2300, L100.4500, L100.0500, L501.5200, L500.4050 ####[facility] [address] [place], [address] Platelets (Bld) [#/Vol] 529 10*3/uL High 150-450 [facility] Comment on above: Order Comment: Performed By: #### L 501.5000, L501.2300, L100.4500, L100.0500, L501.5200, L500.4050 ####[facility] [address] [place], [address] RBC (Bld) [#/Vol] 3.87 10*6/uL Low 4.2-5.4 [facility] Comment on above: Order Comment: Performed By: #### L 501.5000, L501.2300, L100.4500, L100.0500, L501.5200, L500.4050 ####[facility] [address] [place], [address] RDW SD 84.3 fl High 35.1-43.9 [facility] Comment on above: Order Comment: Performed By: #### L 501.5000, L501.2300, L100.4500, L100.0500, L501.5200, L500.4050 ####[facility] [address] [place], [address] WBC (Bld) [#/Vol] 5.4 10*3/uL Normal 4.4-11.0 [facility] Comment on above: Order Comment: Performed By: #### L 501.5000, L501.2300, L100.4500, L100.0500, L501.5200, L500.4050 ####[facility] [address] [place], [address] Comprehensive Metabolic Prof ilon 09-01-2024 Albumin [Mass/Vol] 3.1 g/dL Low 3.4-4.8 [facility] Comment on above: Order Comment: - Performed By: #### L 501.5000, L501.2300, L100.4500, L100.0500, L501.5200, L500.4050 ####[facility] [address] [place], [address] Albumin/Globulin [Mass ratio] 0.9 {ratio} Normal 0.9-2.4 [facility] Comment on above: Order Comment: Performed By: #### L 501.5000, L501.2300, L100.4500, L100.0500, L501.5200, L500.4050 ####[facility] [address] [place], [address] ALK PHOS 146 U/L High 35-104 [facility] Comment on above: Order Comment: Performed By: #### L 501.5000, L501.2300, L100.4500, L100.0500, L501.5200, L500.4050 ####[facility] [address] [place], [address] ALT [Catalytic activity/Vol] 25 U/L Normal <=34 [facility] Comment on above: Order Comment: - Performed By: #### L 501.5000, L501.2300, L100.4500, L100.0500, L501.5200, L500.4050 ####[facility] [address] [place], [address] AST [Catalytic activity/Vol] 37 U/L High <=31 [facility] Comment on above: Order Comment: Performed By: #### L 501.5000, L501.2300, L100.4500, L100.0500, L501.5200, L500.4050 ####[facility] [address] [place], [address] Bilirubin [Mass/Vol] 0.26 mg/dL Normal 0.00-1.30 [facility] Comment on above: Order Comment: Performed By: #### L 501.5000, L501.2300, L100.4500, L100.0500, L501.5200, L500.4050 ####[facility] [address] [place], [address] BUN/CRE 70.5 RATIO High 10-20 [facility] Comment on above: Order Comment: Performed By: #### L 501.5000, L501.2300, L100.4500, L100.0500, L501.5200, L500.4050 ####[facility] [address] [place], [address] Calcium [Mass/Vol] 8.8 mg/dL Normal 7.6-11.0 [facility] Comment on above: Order Comment: Performed By: #### L 501.5000, L501.2300, L100.4500, L100.0500, L501.5200, L500.4050 ####[facility] [address] [place], [address] Chloride [Moles/Vol] 102 mmol/L Normal 98-108 [facility] Comment on above: Order Comment: Performed By: #### L 501.5000, L501.2300, L100.4500, L100.0500, L501.5200, L500.4050 ####[facility] [address] [place], [address] CO2 [Moles/Vol] 23.9 mmol/L Normal 21.0-32.0 [facility] Comment on above: Order Comment: Performed By: #### L 501.5000, L501.2300, L100.4500, L100.0500, L501.5200, L500.4050 ####[facility] [address] [place], [address] Creatinine [Mass/Vol] 0.39 mg/dL Low 0.70-1.20 [facility] Comment on above: Order Comment: Performed By: #### L 501.5000, L501.2300, L100.4500, L100.0500, L501.5200, L500.4050 ####[facility] [address] [place], [address] GAP 11 Normal 5-15 [facility] Comment on above: Order Comment: Performed By: #### L 501.5000, L501.2300, L100.4500, L100.0500, L501.5200, L500.4050 ####[facility] [address] [place], [address] GFR/1.73 sq M.predicted among non-blacks MDRD (S/P/Bld) [Vol rate/Area] 108 mL/min/{1.73_m2} Normal >60 [facility] Comment on above: Order Comment: Result Comment: mL/m in/1.73m2 CKD-EPI Creatinine Equation (2020) Performed By: #### L 501.5000, L501.2300, L100.4500, L100.0500, L501.5200, L500.4050 ####[facility] [address] [place], [address] Globulin (S) [Mass/Vol] 3.3 g/dL Normal 2.2-4.2 [facility] Comment on above: Order Comment: Performed By: #### L 501.5000, L501.2300, L100.4500, L100.0500, L501.5200, L500.4050 ####[facility] [address] [place], [address] Glucose [Mass/Vol] 79 mg/dL Normal 70-99 [facility] Comment on above: Order Comment: Performed By: #### L 501.5000, L501.2300, L100.4500, L100.0500, L501.5200, L500.4050 ####[facility] [address] [place], [address] Potassium [Moles/Vol] 4.2 mmol/L Normal 3.3-5.1 [facility] Comment on above: Order Comment: Performed By: #### L 501.5000, L501.2300, L100.4500, L100.0500, L501.5200, L500.4050 ####[facility] [address] [place], [address] Sodium [Moles/Vol] 137 mmol/L Normal 133-145 [facility] Comment on above: Order Comment: Performed By: #### L 501.5000, L501.2300, L100.4500, L100.0500, L501.5200, L500.4050 ####[facility] [address] [place], [address] T PROT 6.5 g/dL Normal 5.9-8.4 [facility] Comment on above: Order Comment: Performed By: #### L 501.5000, L501.2300, L100.4500, L100.0500, L501.5200, L500.4050 ####[facility] [address] [place], [address] Urea nitrogen [Mass/Vol] 27 mg/dL High 4-19 [facility] Comment on above: Order Comment: Performed By: #### L 501.5000, L501.2300, L100.4500, L100.0500, L501.5200, L500.4050 ####[facility] [address] [place], [address] Differential Commenton 09-01 SMEAR COMMENT Normal [facility] Comment on above: Order Comment: Result Comment: 1+ P OLYCHROMASIA2+ ANISOCYTOSISMODERATELY INCREASED PLATELETS Performed By: #### L 501.5000, L501.2300, L100.4500, L100.0500, L501.5200, L500.4050 ####[facility] [address] [place], [address] Magnesiumon 09-01-2024 Magnesium [Mass/Vol] 2.4 mg/dL High 1.5-2.2 [facility] Comment on above: Order Comment: Performed By: #### L 501.5000, L501.2300, L100.4500, L100.0500, L501.5200, L500.4050 ####[facility] [address] [place], [address] Phosphoruson 09-01-2024 Phosphate [Mass/Vol] 3.7 mg/dL Normal 2.7-4.5 [facility] Comment on above: Order Comment: Performed By: #### L 501.5000, L501.2300, L100.4500, L100.0500, L501.5200, L500.4050 ####[facility] [address] [place], [address] Triglycerideson 09-01-2024 Triglyceride [Mass/Vol] 67 mg/dL Normal [facility] Comment on above: Order Comment: Result Comment: The drugs N-Acetylcysteine and Metamizole may falselydepress this assay.Normal range: <150 mg/dLBorderline High: 150-199 mg/dLHigh: 200-499 mg/dLVery High: >500 mg/dL Performed By: #### L 501.5000, L501.2300, L100.4500, L100.0500, L501.5200, L500.4050 ####[facility] [address] [place], [address] Zinc, Plasma or Serumon 04-0 ZINC,PLASMA/SER 41 ug/dL Low 44-115 [facility] Comment on above: Order Comment: Test( s) 124456-[id number], Plasma or Serumwas developed and its performance characteristicsdetermined by [employer]. It has not been cleared or approvedby the Food and Drug Administration. Result Comment: Dete ction Limit = 5Performed at: [facility] [address] [id number] Director: Elvie Fry MD, Phone: [phone] Performed By: #### L 501.6710, L100.4500, L500.4050, L501.5200, L3300.9900, L100.0500, L501.5000, L501.2300 ####[facility] [address] [place], [address] CBC-Complete Blood Cnt No Di ffon 08-30-2024 Erythrocyte distribution width (RBC) [Ratio] 31.3 % High 11.6-14.6 [facility] Comment on above: Order Comment: 200 Performed By: #### L 500.4050, L501.5200, L501.2300, L501.5000, L100.0500, L100.4500 ####[facility] [address] [place], [address] Hematocrit (Bld) [Volume fraction] 29.6 % Low 37-47 [facility] Comment on above: Order Comment: 200 Performed By: #### L 500.4050, L501.5200, L501.2300, L501.5000, L100.0500, L100.4500 ####[facility] [address] [place], [address] Hemoglobin (Bld) [Mass/Vol] 8.6 g/dL Low 12.0-15.0 [facility] Comment on above: Order Comment: 200 Performed By: #### L 500.4050, L501.5200, L501.2300, L501.5000, L100.0500, L100.4500 ####[facility] [address] [place], [address] MCH (RBC) [Entitic mass] 23.8 pg Low 27.0-32.0 [facility] Comment on above: Order Comment: 200 Performed By: #### L 500.4050, L501.5200, L501.2300, L501.5000, L100.0500, L100.4500 ####[facility] [address] [place], [address] MCHC (RBC) [Mass/Vol] 29.1 g/dL Low 32-36 [facility] Comment on above: Order Comment: 200 Performed By: #### L 500.4050, L501.5200, L501.2300, L501.5000, L100.0500, L100.4500 ####[facility] [address] [place], [address] MCV (RBC) [Entitic vol] 81.8 fL Normal 81-99 [facility] Comment on above: Order Comment: 200 Performed By: #### L 500.4050, L501.5200, L501.2300, L501.5000, L100.0500, L100.4500 ####[facility] [address] [place], [address] Platelet mean volume (Bld) [Entitic vol] 8.9 fL Normal 6.2-12.0 [facility] Comment on above: Order Comment: 200 Performed By: #### L 500.4050, L501.5200, L501.2300, L501.5000, L100.0500, L100.4500 ####[facility] [address] [place], [address] Platelets (Bld) [#/Vol] 489 10*3/uL High 150-450 [facility] Comment on above: Order Comment: 200 Performed By: #### L 500.4050, L501.5200, L501.2300, L501.5000, L100.0500, L100.4500 ####[facility] [address] [place], [address] RBC (Bld) [#/Vol] 3.62 10*6/uL Low 4.2-5.4 [facility] Comment on above: Order Comment: 200 Performed By: #### L 500.4050, L501.5200, L501.2300, L501.5000, L100.0500, L100.4500 ####[facility] [address] [place], [address] RDW SD 87.4 fl High 35.1-43.9 [facility] Comment on above: Order Comment: 200 Performed By: #### L 500.4050, L501.5200, L501.2300, L501.5000, L100.0500, L100.4500 ####[facility] [address] [place], [address] WBC (Bld) [#/Vol] 5.7 10*3/uL Normal 4.4-11.0 [facility] Comment on above: Order Comment: 200 Performed By: #### L 500.4050, L501.5200, L501.2300, L501.5000, L100.0500, L100.4500 ####[facility] [address] [place], [address] Comprehensive Metabolic Prof ilon 08-30-2024 Albumin [Mass/Vol] 2.8 g/dL Low 3.4-4.8 [facility] Comment on above: Order Comment: 200 Performed By: #### L 500.4050, L501.5200, L501.2300, L501.5000, L100.0500, L100.4500 ####[facility] [address] [place], [address] Albumin/Globulin [Mass ratio] 0.9 {ratio} Normal 0.9-2.4 [facility] Comment on above: Order Comment: 200 Performed By: #### L 500.4050, L501.5200, L501.2300, L501.5000, L100.0500, L100.4500 ####[facility] [address] [place], [address] ALK PHOS 125 U/L High 35-104 [facility] Comment on above: Order Comment: 200 Performed By: #### L 500.4050, L501.5200, L501.2300, L501.5000, L100.0500, L100.4500 ####[facility] [address] [place], [address] ALT [Catalytic activity/Vol] 20 U/L Normal <=34 [facility] Comment on above: Order Comment: 200 Performed By: #### L 500.4050, L501.5200, L501.2300, L501.5000, L100.0500, L100.4500 ####[facility] [address] [place], [address] AST [Catalytic activity/Vol] 35 U/L High <=31 [facility] Comment on above: Order Comment: 200 Performed By: #### L 500.4050, L501.5200, L501.2300, L501.5000, L100.0500, L100.4500 ####[facility] [address] [place], [address] Bilirubin [Mass/Vol] 0.24 mg/dL Normal 0.00-1.30 [facility] Comment on above: Order Comment: 200 Performed By: #### L 500.4050, L501.5200, L501.2300, L501.5000, L100.0500, L100.4500 ####[facility] [address] [place], [address] BUN/CRE 42.9 RATIO High 10-20 [facility] Comment on above: Order Comment: 200 Performed By: #### L 500.4050, L501.5200, L501.2300, L501.5000, L100.0500, L100.4500 ####[facility] [address] [place], [address] Calcium [Mass/Vol] 8.6 mg/dL Normal 7.6-11.0 [facility] Comment on above: Order Comment: 200 Performed By: #### L 500.4050, L501.5200, L501.2300, L501.5000, L100.0500, L100.4500 ####[facility] [address] [place], [address] Chloride [Moles/Vol] 105 mmol/L Normal 98-108 [facility] Comment on above: Order Comment: 200 Performed By: #### L 500.4050, L501.5200, L501.2300, L501.5000, L100.0500, L100.4500 ####[facility] [address] [place], [address] CO2 [Moles/Vol] 23.6 mmol/L Normal 21.0-32.0 [facility] Comment on above: Order Comment: 200 Performed By: #### L 500.4050, L501.5200, L501.2300, L501.5000, L100.0500, L100.4500 ####[facility] [address] [place], [address] Creatinine [Mass/Vol] 0.41 mg/dL Low 0.70-1.20 [facility] Comment on above: Order Comment: 200 Performed By: #### L 500.4050, L501.5200, L501.2300, L501.5000, L100.0500, L100.4500 ####[facility] [address] [place], [address] GAP 9 Normal 5-15 [facility] Comment on above: Order Comment: 200 Performed By: #### L 500.4050, L501.5200, L501.2300, L501.5000, L100.0500, L100.4500 ####[facility] [address] [place], [address] GFR/1.73 sq M.predicted among non-blacks MDRD (S/P/Bld) [Vol rate/Area] 106 mL/min/{1.73_m2} Normal >60 [facility] Comment on above: Order Comment: 200 Result Comment: mL/m in/1.73m2 CKD-EPI Creatinine Equation (2020) Performed By: #### L 500.4050, L501.5200, L501.2300, L501.5000, L100.0500, L100.4500 ####[facility] [address] [place], [address] Globulin (S) [Mass/Vol] 3.2 g/dL Normal 2.2-4.2 [facility] Comment on above: Order Comment: 200 Performed By: #### L 500.4050, L501.5200, L501.2300, L501.5000, L100.0500, L100.4500 ####[facility] [address] [place], [address] Glucose [Mass/Vol] 86 mg/dL Normal 70-99 [facility] Comment on above: Order Comment: 200 Performed By: #### L 500.4050, L501.5200, L501.2300, L501.5000, L100.0500, L100.4500 ####[facility] [address] [place], [address] Potassium [Moles/Vol] 4.4 mmol/L Normal 3.3-5.1 [facility] Comment on above: Order Comment: 200 Performed By: #### L 500.4050, L501.5200, L501.2300, L501.5000, L100.0500, L100.4500 ####[facility] [address] [place], [address] Sodium [Moles/Vol] 137 mmol/L Normal 133-145 [facility] Comment on above: Order Comment: 200 Performed By: #### L 500.4050, L501.5200, L501.2300, L501.5000, L100.0500, L100.4500 ####[facility] [address] [place], [address] T PROT 6.0 g/dL Normal 5.9-8.4 [facility] Comment on above: Order Comment: 200 Performed By: #### L 500.4050, L501.5200, L501.2300, L501.5000, L100.0500, L100.4500 ####[facility] [address] [place], [address] Urea nitrogen [Mass/Vol] 18 mg/dL Normal 4-19 [facility] Comment on above: Order Comment: 200 Performed By: #### L 500.4050, L501.5200, L501.2300, L501.5000, L100.0500, L100.4500 ####[facility] [address] [place], [address] Differential Commenton 08-30 SMEAR COMMENT SCANNED Normal [facility] Comment on above: Order Comment: 200 Result Comment: 3+ A NISOCYTOSIS Performed By: #### L 500.4050, L501.5200, L501.2300, L501.5000, L100.0500, L100.4500 ####[facility] [address] [place], [address] Magnesiumon 08-30-2024 Magnesium [Mass/Vol] 2.2 mg/dL Normal 1.5-2.2 [facility] Comment on above: Order Comment: 200 Performed By: #### L 500.4050, L501.5200, L501.2300, L501.5000, L100.0500, L100.4500 ####[facility] [address] [place], [address] Phosphoruson 08-30-2024 Phosphate [Mass/Vol] 3.2 mg/dL Normal 2.7-4.5 [facility] Comment on above: Order Comment: 200 Performed By: #### L 500.4050, L501.5200, L501.2300, L501.5000, L100.0500, L100.4500 ####[facility] [address] [place], [address] Triglycerideson 08-30-2024 Triglyceride [Mass/Vol] 66 mg/dL Normal [facility] Comment on above: Order Comment: 200 Result Comment: The drugs N-Acetylcysteine and Metamizole may falselydepress this assay.Normal range: <150 mg/dLBorderline High: 150-199 mg/dLHigh: 200-499 mg/dLVery High: >500 mg/dL Performed By: #### L 500.4050, L501.5200, L501.2300, L501.5000, L100.0500, L100.4500 ####[facility] [address] [place], [address] CBC-Complete Blood Cnt No Di ffon 08-28-2024 Hematocrit (Bld) [Volume fraction] 28.4 % Low 37-47 [facility] Comment on above: Order Comment: 205 Performed By: #### L 501.6710, L100.4500, L500.4050, L501.5200, L3300.9900, L100.0500, L501.5000, L501.2300 ####[facility] [address] [place], [address] Hemoglobin (Bld) [Mass/Vol] 8.2 g/dL Low 12.0-15.0 [facility] Comment on above: Order Comment: 205 Performed By: #### L 501.6710, L100.4500, L500.4050, L501.5200, L3300.9900, L100.0500, L501.5000, L501.2300 ####[facility] [address] [place], [address] MCH (RBC) [Entitic mass] 23.3 pg Low 27.0-32.0 [facility] Comment on above: Order Comment: 205 Performed By: #### L 501.6710, L100.4500, L500.4050, L501.5200, L3300.9900, L100.0500, L501.5000, L501.2300 ####[facility] [address] [place], [address] MCHC (RBC) [Mass/Vol] 28.9 g/dL Low 32-36 [facility] Comment on above: Order Comment: 205 Performed By: #### L 501.6710, L100.4500, L500.4050, L501.5200, L3300.9900, L100.0500, L501.5000, L501.2300 ####[facility] [address] [place], [address] MCV (RBC) [Entitic vol] 80.7 fL Low 81-99 [facility] Comment on above: Order Comment: 205 Performed By: #### L 501.6710, L100.4500, L500.4050, L501.5200, L3300.9900, L100.0500, L501.5000, L501.2300 ####[facility] [address] [place], [address] Platelet mean volume (Bld) [Entitic vol] 8.9 fL Normal 6.2-12.0 [facility] Comment on above: Order Comment: 205 Performed By: #### L 501.6710, L100.4500, L500.4050, L501.5200, L3300.9900, L100.0500, L501.5000, L501.2300 ####[facility] [address] [place], [address] Platelets (Bld) [#/Vol] 535 10*3/uL High 150-450 [facility] Comment on above: Order Comment: 205 Performed By: #### L 501.6710, L100.4500, L500.4050, L501.5200, L3300.9900, L100.0500, L501.5000, L501.2300 ####[facility] [address] [place], [address] RBC (Bld) [#/Vol] 3.52 10*6/uL Low 4.2-5.4 [facility] Comment on above: Order Comment: 205 Performed By: #### L 501.6710, L100.4500, L500.4050, L501.5200, L3300.9900, L100.0500, L501.5000, L501.2300 ####[facility] [address] [place], [address] WBC (Bld) [#/Vol] 7.7 10*3/uL Normal 4.4-11.0 [facility] Comment on above: Order Comment: 205 Performed By: #### L 501.6710, L100.4500, L500.4050, L501.5200, L3300.9900, L100.0500, L501.5000, L501.2300 ####[facility] [address] [place], [address] CRPon 08-28-2024 C-REACTIVE PROT 24.10 mg/L High 0.0-3.0 [facility] Comment on above: Order Comment: 205 Performed By: #### L 501.6710, L100.4500, L500.4050, L501.5200, L3300.9900, L100.0500, L501.5000, L501.2300 ####[facility] [address] [place], [address] Comprehensive Metabolic Prof ilon 08-28-2024 Albumin [Mass/Vol] 3.1 g/dL Low 3.4-4.8 [facility] Comment on above: Order Comment: 205 Performed By: #### L 501.6710, L100.4500, L500.4050, L501.5200, L3300.9900, L100.0500, L501.5000, L501.2300 ####[facility] [address] [place], [place], [address] Albumin/Globulin [Mass ratio] 1.0 {ratio} Normal 0.9-2.4 [facility] Comment on above: Order Comment: 205 Performed By: #### L 501.6710, L100.4500, L500.4050, L501.5200, L3300.9900, L100.0500, L501.5000, L501.2300 ####[facility] [address] [place], [place], [address] ALK PHOS 134 U/L High 35-104 [facility] Comment on above: Order Comment: 205 Performed By: #### L 501.6710, L100.4500, L500.4050, L501.5200, L3300.9900, L100.0500, L501.5000, L501.2300 ####[facility] [address] [place], [place], [address] ALT [Catalytic activity/Vol] 24 U/L Normal <=34 [facility] Comment on above: Order Comment: 205 Performed By: #### L 501.6710, L100.4500, L500.4050, L501.5200, L3300.9900, L100.0500, L501.5000, L501.2300 ####[facility] [address] [place], [address] AST [Catalytic activity/Vol] 32 U/L Normal <=31 [facility] Comment on above: Order Comment: 205 Performed By: #### L 501.6710, L100.4500, L500.4050, L501.5200, L3300.9900, L100.0500, L501.5000, L501.2300 ####[facility] [address] [place], [address] Bilirubin [Mass/Vol] 0.23 mg/dL Normal 0.00-1.30 [facility] Comment on above: Order Comment: 205 Performed By: #### L 501.6710, L100.4500, L500.4050, L501.5200, L3300.9900, L100.0500, L501.5000, L501.2300 ####[facility] [address] [place], [address] BUN/CRE 103.4 RATIO High 10-20 [facility] Comment on above: Order Comment: 205 Performed By: #### L 501.6710, L100.4500, L500.4050, L501.5200, L3300.9900, L100.0500, L501.5000, L501.2300 ####[facility] [address] [place], [address] Calcium [Mass/Vol] 8.4 mg/dL Normal 7.6-11.0 [facility] Comment on above: Order Comment: 205 Performed By: #### L 501.6710, L100.4500, L500.4050, L501.5200, L3300.9900, L100.0500, L501.5000, L501.2300 ####[facility] [address] [place], [address] Chloride [Moles/Vol] 104 mmol/L Normal 98-108 [facility] Comment on above: Order Comment: 205 Performed By: #### L 501.6710, L100.4500, L500.4050, L501.5200, L3300.9900, L100.0500, L501.5000, L501.2300 ####[facility] [address] [place], [address] CO2 [Moles/Vol] 19.0 mmol/L Low 21.0-32.0 [facility] Comment on above: Order Comment: 205 Performed By: #### L 501.6710, L100.4500, L500.4050, L501.5200, L3300.9900, L100.0500, L501.5000, L501.2300 ####[facility] [address] [place], [place], [address] Creatinine [Mass/Vol] 0.32 mg/dL Low 0.70-1.20 [facility] Comment on above: Order Comment: 205 Performed By: #### L 501.6710, L100.4500, L500.4050, L501.5200, L3300.9900, L100.0500, L501.5000, L501.2300 ####[facility] [address] [place], [address] GAP 12 Normal 5-15 [facility] Comment on above: Order Comment: 205 Performed By: #### L 501.6710, L100.4500, L500.4050, L501.5200, L3300.9900, L100.0500, L501.5000, L501.2300 ####[facility] [address] [place], [place], [id number]) GFR/1.73 sq M.predicted among non-blacks MDRD (S/P/Bld) [Vol rate/Area] 113 mL/min/{1.73_m2} Normal >60 [facility] Comment on above: Order Comment: 205 Result Comment: mL/m in/1.73m2 CKD-EPI Creatinine Equation (2020) Performed By: #### L 501.6710, L100.4500, L500.4050, L501.5200, L3300.9900, L100.0500, L501.5000, L501.2300 ####[facility] [address] [place], [address] Globulin (S) [Mass/Vol] 2.9 g/dL Normal 2.2-4.2 [facility] Comment on above: Order Comment: 205 Performed By: #### L 501.6710, L100.4500, L500.4050, L501.5200, L3300.9900, L100.0500, L501.5000, L501.2300 ####[facility] [address] [place], [address] Glucose [Mass/Vol] 119 mg/dL High 70-99 [facility] Comment on above: Order Comment: 205 Performed By: #### L 501.6710, L100.4500, L500.4050, L501.5200, L3300.9900, L100.0500, L501.5000, L501.2300 ####[facility] [address] [place], [address] Potassium [Moles/Vol] 4.2 mmol/L Normal 3.3-5.1 [facility] Comment on above: Order Comment: 205 Performed By: #### L 501.6710, L100.4500, L500.4050, L501.5200, L3300.9900, L100.0500, L501.5000, L501.2300 ####[facility] [address] [place], [address] Sodium [Moles/Vol] 135 mmol/L Normal 133-145 [facility] Comment on above: Order Comment: 205 Performed By: #### L 501.6710, L100.4500, L500.4050, L501.5200, L3300.9900, L100.0500, L501.5000, L501.2300 ####[facility] [address] [place], [address] T PROT 6.0 g/dL Normal 5.9-8.4 [facility] Comment on above: Order Comment: 205 Performed By: #### L 501.6710, L100.4500, L500.4050, L501.5200, L3300.9900, L100.0500, L501.5000, L501.2300 ####[facility] [address] [place], [address] Urea nitrogen [Mass/Vol] 33 mg/dL High 4-19 [facility] Comment on above: Order Comment: 205 Performed By: #### L 501.6710, L100.4500, L500.4050, L501.5200, L3300.9900, L100.0500, L501.5000, L501.2300 ####[facility] [address] [place], [address] Differential Commenton 08-28 SMEAR COMMENT COMMENT Normal [facility] Comment on above: Order Comment: 205 Result Comment: DIMO RPHIC RBC POPULATION NOTED ON SLIDE REVIEW. Performed By: #### L 501.6710, L100.4500, L500.4050, L501.5200, L3300.9900, L100.0500, L501.5000, L501.2300 ####[facility] [address] [place], [address] Magnesiumon 08-28-2024 Magnesium [Mass/Vol] 2.2 mg/dL Normal 1.5-2.2 [facility] Comment on above: Order Comment: 205 Performed By: #### L 501.6710, L100.4500, L500.4050, L501.5200, L3300.9900, L100.0500, L501.5000, L501.2300 ####[facility] [address] [place], [place], [address] Phosphoruson 08-28-2024 Phosphate [Mass/Vol] 2.9 mg/dL Normal 2.7-4.5 [facility] Comment on above: Order Comment: 205 Performed By: #### L 501.6710, L100.4500, L500.4050, L501.5200, L3300.9900, L100.0500, L501.5000, L501.2300 ####[facility] [address] [place], [place], [id number] Triglycerideson 08-28-2024 Triglyceride [Mass/Vol] 93 mg/dL Normal [facility] Comment on above: Order Comment: 205 Result Comment: The drugs N-Acetylcysteine and Metamizole may falselydepress this assay.Normal range: <150 mg/dLBorderline High: 150-199 mg/dLHigh: 200-499 mg/dLVery High: >500 mg/dL Performed By: #### L 501.6710, L100.4500, L500.4050, L501.5200, L3300.9900, L100.0500, L501.5000, L501.2300 ####[facility] [address] [place], [place], [id number] Comprehensive Metabolic Prof ilon 08-26-2024 Albumin [Mass/Vol] 3.0 g/dL Low 3.4-4.8 [facility] Comment on above: Performed By: #### L 501.5200, L500.4050 ####[facility] [address] [place], [place], [address] Albumin/Globulin [Mass ratio] 0.9 {ratio} Normal 0.9-2.4 [facility] Comment on above: Performed By: #### L 501.5200, L500.4050 ####[facility] [address] [place], [address] ALK PHOS 155 U/L High 35-104 [facility] Comment on above: Performed By: #### L 501.5200, L500.4050 ####[facility] [address] [place], [address] ALT [Catalytic activity/Vol] 34 U/L Normal <=34 [facility] Comment on above: Performed By: #### L 501.5200, L500.4050 ####[facility] [address] [place], [address] AST [Catalytic activity/Vol] 49 U/L High <=31 [facility] Comment on above: Performed By: #### L 501.5200, L500.4050 ####[facility] [address] [place], [address] Bilirubin [Mass/Vol] 0.20 mg/dL Normal 0.00-1.30 [facility] Comment on above: Performed By: #### L 501.5200, L500.4050 ####[facility] [address] [place], [address] BUN/CRE 53.6 RATIO High 10-20 [facility] Comment on above: Performed By: #### L 501.5200, [id number] ####[facility] [address] [place], [address] Calcium [Mass/Vol] 8.4 mg/dL Normal 7.6-11.0 [facility] Comment on above: Performed By: #### L 501.5200, [id number] ####[facility] [address] [place], [address] Chloride [Moles/Vol] 104 mmol/L Normal 98-108 [facility] Comment on above: Performed By: #### L 501.5200, [id number] ####[facility] [address] [place], [address] CO2 [Moles/Vol] 21.2 mmol/L Normal 21.0-32.0 [facility] Comment on above: Performed By: #### L 501.5200, [id number] ####[facility] [address] [place], [address] Creatinine [Mass/Vol] 0.38 mg/dL Low 0.70-1.20 [facility] Comment on above: Performed By: #### L 501.5200, [id number] ####[facility] [address] [place], [address] GAP 10 Normal 5-15 [facility] Comment on above: Performed By: #### L 501.5200, [id number] ####[facility] [address] [place], [address] GFR/1.73 sq M.predicted among non-blacks MDRD (S/P/Bld) [Vol rate/Area] 108 mL/min/{1.73_m2} Normal >60 [facility] Comment on above: Result Comment: mL/m in/1.73m2 CKD-EPI Creatinine Equation (2020) Performed By: #### L 501.5200, [id number] ####[facility] [address] [place], [address] Globulin (S) [Mass/Vol] 3.3 g/dL Normal 2.2-4.2 [facility] Comment on above: Performed By: #### L 501.5200, [id number] ####[facility] [address] [place], [address] Glucose [Mass/Vol] 64 mg/dL Low 70-99 [facility] Comment on above: Performed By: #### L 501.5200, [id number] ####[facility] [address] [place], [address] Potassium [Moles/Vol] 4.2 mmol/L Normal 3.3-5.1 [facility] Comment on above: Performed By: #### L 501.5200, [id number] ####[facility] [address] [place], [address] Sodium [Moles/Vol] 134 mmol/L Normal 133-145 [facility] Comment on above: Performed By: #### L 501.5200, [id number] ####[facility] [address] [place], [address] T PROT 6.3 g/dL Normal 5.9-8.4 [facility] Comment on above: Performed By: #### L 501.5200, [id number] ####[facility] [address] [place], [address] Urea nitrogen [Mass/Vol] 21 mg/dL High 4-19 [facility] Comment on above: Performed By: #### L 501.5200, [id number] ####[facility] [address] [place], [address] Magnesiumon 08-26-2024 Magnesium [Mass/Vol] 2.2 mg/dL Normal 1.5-2.2 [facility] Comment on above: Performed By: #### L 501.5200, [id number] ####[facility] [address] [place], [address] CBC-Complete Blood Cnt No Di ffon 08-25-2024 PATH REV Normal [facility] Comment on above: Result Comment: 1+ P OLYCHROMASIA3+ ANISOCYTOSIS1+ OVALOCYTES1+ TARGET CELLSMARKEDLY INCREASED PLATELETS Performed By: #### L 501.5200, L501.2300, L100.0500, L501.5000, L500.4050 ####[facility] [address] [place], [address] Comprehensive Metabolic Prof ilon 08-25-2024 Glucose [Mass/Vol] 18 mg/dL Invalid Interpretation Code 70-99 [facility] Comment on above: Order Comment: ARACELI RNING Result Comment: Crit ical Result(s) Called at: by:??Results read back bysame.CRITICAL RESULT CALLED TO BTANNER BY ION GREEN. REPORTREAD BACK BY SAME.. 11108/25/24Critical Result(s) Called at: by:??Results read back bysame. AMENDED REPORT 08/25/24 1114 GLU previously reported as: 18 *L mg/dLCritical Result(s) Called at: by:??Results read back bysame.CRITICAL RESULT CALLED TO BTANNER BY ION GREEN. REPORTREAD BACK BY SAME.. 11108/25/24 Performed By: #### L 501.5200, L501.2300, L100.0500, L501.5000, L500.4050 ####[facility] [address] [place], [address] Magnesiumon 08-25-2024 Magnesium [Mass/Vol] 2.3 mg/dL High 1.5-2.2 [facility] Comment on above: Performed By: #### L 501.5200, L501.2300, L100.0500, L501.5000, L500.4050 ####[facility] [address] [place], [address] Phosphoruson 08-25-2024 Phosphate [Mass/Vol] 2.7 mg/dL Normal 2.7-4.5 [facility] Comment on above: Performed By: #### L 501.5200, L501.2300, L100.0500, L501.5000, L500.4050 ####[facility] [address] [place], [address] Triglycerideson 08-25-2024 Triglyceride [Mass/Vol] 65 mg/dL Normal [facility] Comment on above: Result Comment: The drugs N-Acetylcysteine and Metamizole may falselydepress this assay.Normal range: <150 mg/dLBorderline High: 150-199 mg/dLHigh: 200-499 mg/dLVery High: >500 mg/dL Performed By: #### L 501.5200, L501.2300, L100.0500, L501.5000, L500.4050 ####[facility] [address] [place], [address] Encounters Encounter Date Encounter Type Care Provider Facility Start: 10-30-2024 ambulatory Olya Gudla [facility] Fac[facility] ty:[facility] Start: 10-26-2024 ambulatory Olya Gudla [facility] Fac[facility] ty:[facility] Start: 10-24-2024 ambulatory Olya Gudla [facility] Fac[facility] ty:[facility] Start: 10-18-2024 ambulatory Olya Gudla [facility] Fac[facility] ty:[facility] Start: 10-16-2024 ambulatory Olya Gudla [facility] Fac[facility] ty:[facility] Start: 10-12-2024 ambulatory Olya Gudla [facility] Fac[facility] ty:[facility] Start: 10-09-2024 ambulatory Olya Gudla [facility] Fac[facility] ty:[facility] Start: 10-06-2024 ambulatory Olya Gudla [facility] Fac[facility] ty:[facility] Start: 10-04-2024 ambulatory Olya Gudla [facility] Fac[facility] ty:[facility] Start: 10-02-2024 ambulatory Olya Gudla [facility] Fac[facility] ty:[facility] Start: 09-29-2024 ambulatory Olya Gudla [facility] Fac[facility] ty:[facility] Start: 09-27-2024 ambulatory Olya Gudla [facility] Fac[facility] ty:[facility] Start: 09-25-2024 ambulatory Olya Gudla [facility] Fac[facility] ty:[facility] Start: 09-22-2024 ambulatory Olya Gudla [facility] Fac[facility] ty:[facility] Start: 09-20-2024 ambulatory Olya Gudla [facility] Fac[facility] ty:[facility] Start: 09-18-2024 ambulatory Olya Gudla [facility] Fac[facility] ty:[facility] Start: 09-15-2024 ambulatory Olya Gudla [facility] Fac[facility] ty:[facility] Start: 09-13-2024 ambulatory Olay Gudla [facility]LS Fac[facility] ty:[facility] Start: 09-11-2024 ambulatory Olya Gudla [facility] Fac[facility] ty:[facility] Start: 09-08-2024 ambulatory Olya Gudla [facility] ty:[facility] Start: 09-06-2024 ambulatory Olya Gudla [facility] ty:[facility] Start: 09-04-2024 ambulatory Olya Gudla [facility] ty:[facility] Start: 09-01-2024 ambulatory Olya Gudla [facility] ty:[facility] Start: 08-30-2024 ambulatory Olya Gudla [facility] ty:[facility] Start: 08-28-2024 ambulatory Olya Gudla [facility] ty:[facility] Start: 08-26-2024 ambulatory Olya Gudla [facility] ty:[facility] Start: 08-25-2024 ambulatory Olya Hayderdla OLS Fac[facility] ty:[facility] Payers Date Payer Category Payer Self-pay Summary Purpose Family History No Family History Records Found Advance Directives No Advanced Directives Records Found Additional Source Comments INFORMATION SOURCE (unrecogn ized section and content) DATE CREATED AUTHOR 10/30/2024 [facility] FOR RECORDS PERTAINING TO PATIENTS WHO ARE OR HAVE BEEN ENROLLED IN A CHEMICAL DEPENDENCY/SUBSTANCEABUSE PROGRAM, SOME INFORMATION MAY BE OMITTED. This clinical summary was aggregated from multiple sources. Caution should be exercised in using it in the provision of clinical care. This summary normalizes information from multiple sources, and as a consequence, information in this document may materially change the coding, format and clinical context of patient data. In addition, data may be omitted in some cases. CLINICAL DECISIONS SHOULD BE BASED ON THE PRIMARY CLINICAL RECORDS. [employer] [facility]. provides no warranty or guarantee of the accuracy or completeness of information in this document.
[2024-10-31] MEDS: 0.9% Normal Saline (500mL Bag) 500 ML 999 ML IV (00:10)
[2024-10-31 00:11] LABS: Absolute Lymphocyte Count 1.35 X10^3/uL (0.83-4.51); Absolute Neutrophil Count 8.8 X10^3/uL (2.0-7.7); Basophil# 0.06 X10^3/uL; Basophil% 0.5 % (0-1); Eosinophils% 2.5 % (0-5); Hematocrit 22.9 % (37-47); Hemoglobin 7.4 g/dL (12.0-15.0); Lymphocyte # 1.35 X10^3/ul (0.83-4.51); Lymphocyte % 11.4 % (19-41); Mean Corp Hgb Conc 32.3 g/dL (32-36); Mean Corpuscular Hgb 23.1 pg (27.0-32.0); Mean Corpuscular Volume 71.3 fL (81-99); Mean Platelet Vol. 11.4 fl (6.2-12.0); Monocyte# 1.31 X10^3/uL; NRBC Flagged by Analyzer 0 % (0-5); Neutrophil # 8.82 X10^3/uL (2.7-7.7); Neutrophil % 74.2 % (47-70); Platelet Count 267 K/mm3 (150-450); RBC Distribution Width CV 17.5 % (11.6-14.6); RBC Distribution Width SD 44.6 fl (35.1-43.9); Red Blood Count 3.21 M/mm3 (4.2-5.4); White Blood Count 11.9 K/mm3 (4.4-11.0)
[2024-10-31 00:21] LABS: International Normalized Ratio 1.1; Partial Thromboplast Time 36.4 Seconds (24.1-36.2); Prothrombin Time (Protime)PT. 14.8 SECONDS (11.7-14.9)
[2024-10-31 00:31] LABS: Lactic Acid 1.2 mmol/L (0.0-2.0)
[2024-10-31 00:54] LABS: ALB/GLOB Ratio 0.8 RATIO (0.9-2.4); AST(SGOT) 48 U/L (<=31); Alanine Aminotransfer ALT/SGPT 60 U/L (<=34); Albumin, Serum 2.4 g/dL (3.4-4.8); Alkaline Phosphatase 311 U/L (35-104); Anion Gap 9 (5-15); BUN 19 mg/dL (4-19); BUN/Creat Ratio 56.9 RATIO (10-20); Calcium,Total 8.4 mg/dL (7.6-11.0); Carbon Dioxide 23.5 mmol/L (21.0-32.0); Chloride 103 mmol/L (98-108); Creatinine, Serum 0.34 mg/dL (0.70-1.20); EST Glomerular Filtration Rate 111 (>60); Estimated Creatinine Clearance 44.95 ml/min (50-250); Globulin 3.1 g/dL (2.2-4.2); Glucose 31 mg/dL (70-99); Potassium 3.8 mmol/L (3.3-5.1); Protein, Total 5.5 g/dL (5.9-8.4); Sodium Level 135 mmol/L (133-145); Total Bilirubin 0.33 mg/dL (0.00-1.30)
[2024-10-31 01:18] LABS: Red Blood Cells-Urine 0 SEEN /hpf (0-5); Squamous Epithelial Cells - UA 0 SEEN /hpf (5-10); White Blood Cells 0 SEEN /hpf (0-5)
[2024-10-31] MEDS: Dextrose 5%/0.9% NaCl 1,000 ML 150 ML IV ×2 (01:23→08:38)
[2024-10-31 01:44] LABS: Color, Urine Yellow (Yellow); Glucose, Dipstick Normal (Normal); Ketone-Dipstick Negative (Negative); Leukocyte Esterase-Dipstick Negative /ul (Negative); Nitrite-Dipstick Negative (Negative); Occult Blood-Urine Negative /ul (Negative); Protein-Dipstick 15 mg/dl (Negative); Urine Bilirubin Dipstick Negative (Negative); Urine Clarity Clear (Clear); Urine Urobilinogen Normal (Normal)
[2024-10-31 01:56] LABS: Bacteria 2+ /hpf (None Seen); Mucous, Urine 2+ /hpf (<or=2+)
[2024-10-31 01:57] LABS: Bedside Glucose 98 mg/dL (74-106)
--- NOTE | 2024-10-31 02:08 | CT_ITS ---
PROCEDURE: ABDOMEN/PELVIS W IV CONT ONLY 10/31/2024 REASON FOR EXAM: FISTULA, ABDOMINAL PAIN, SACRAL ULCERS TECHNIQUE: Abdomen and pelvis CT with intravenous contrast. Coronal and Sagittal reconstruction series were provided. PATIENT PREPARATION: Per protocol ORAL CONTRAST TYPE: None. CONTRAST: Isovue 350. VOLUME: 100 mL One or more dose reduction techniques were used (e.g., Automated exposure control, adjustment of the mA and/or kV according to patient size, use of iterative reconstruction technique. RADIATION DOSE SUMMARY: CTDlvol: 13.3 mGy DLP: 240 mGycm COMPARISON: None. FINDINGS: Mild bilateral pleural effusions. Passive atelectatic airspace disease of the lower lobes. Fistulous tract is noted arising from the descending colon measuring 5.5 cm in its length extending to the left iliacus muscle. Secondary intramuscular abscess formation measuring 7.2 x 3.6 cm in its largest anteroposterior and transverse dimensions respectively. Subsequent erosive changes of the corresponding aspect of the left iliac bone with periosteal reaction suggestive of osteomyelitis. Secondary extension of the left iliacus abscess through the overlying soft tissues. Diffuse thickening of the colon suggestive of colitis. Diffuse thickening of the small bowel suggestive of enteritis. Diffuse thickening of the stomach suggestive of gastritis. No perforation or pneumatosis intestinalis is identified. Soft tissue edema/ulcer overlying the tip of the coccyx without associated osteomyelitis or drainable soft tissue abscess. Heavily calcified atheromatous plaques of the aorta and its branches. Diffuse thickening of the bladder suggestive of cystitis. Chronic changes of pelvic congestion syndrome. Osteopenia. Subacute osteoporotic compression fracture of L1 vertebral body. Normal liver. Normal gallbladder and extrahepatic biliary system. Normal spleen. Normal pancreas. Normal bilateral adrenal glands. Normal size of the right kidney. There is no right renal mass. There are no right renal calculi. There is no right hydronephrosis. Normal visualized right ureter. Normal size of the left kidney. There is no left renal mass. There are no left renal calculi. There is no left hydronephrosis. Normal visualized left ureter. There is no demonstrated peritoneal fluid. Normal inferior vena cava. Normal retroperitoneum. There is no pelvic mass lesion or lymphadenopathy. CT/Abdomen/Pelvis W IV Cont ONLY IMPRESSION: 1. Mild bilateral pleural effusions. 2. Passive atelectatic airspace disease of the lower lobes. 3. Fistulous tract is noted arising from the descending colon measuring 5.5 cm in its length extending to the left iliacus muscle. Secondary intramuscular iliacus abscess formation measuring 7.2 x 3.6 cm in its largest anteroposterior and transverse dimensions respectively. 4. Subsequent erosive changes of the corresponding aspect of the left iliac bon e with periosteal reaction suggestive of osteomyelitis. 5. Secondary extension of the left iliacus abscess through the overlying soft t issues. 6. Diffuse thickening of the colon suggestive of colitis. 7. Diffuse thickening of the small bowel suggestive of enteritis. 8. Diffuse thickening of the stomach suggestive of gastritis. 9. No perforation or pneumatosis intestinalis is identified. 10. Soft tissue edema/ulcer overlying the tip of the coccyx without associated osteomyelitis or drainable soft tissue abscess. 11. Heavily calcified atheromatous plaques of the aorta and its branches. 12. Diffuse thickening of the bladder suggestive of cystitis. 13. Chronic changes of pelvic congestion syndrome. 14. Osteopenia. 15. Subacute osteoporotic compression fracture of L1 vertebral body. Reading Location: [facility]
[2024-10-31] MEDS: Piperacil/Tazobactam 4.5 GM in 0.9% Normal Saline (100mL MB+) 100 ML IV (02:24)
[2024-10-31 03:49] LABS: Bedside Glucose 134 mg/dL (74-106)
[2024-10-31] MEDS: Vancomycin IV 1,000 MG/200 ML BAG 200 MG IV (04:36)
[2024-10-31 06:33] LABS: Bedside Glucose 202 mg/dL (74-106)
--- NOTE | 2024-10-31 07:50 | ED.RN ---
Attempted to call report twice to [facility]. First time was told that the nurse was not available. second time I was placed on hold for 21 minutes before hanging up. Report passed on to day shift RN.
[2024-10-31] MEDS: HYDROmorphone 0.5 MG/0.5 ML SYRINGE 0.4 MG IV (08:09)
[2024-10-31 15:20] LABS: Bedside Glucose 209 mg/dL (74-106)
[2024-10-31 15:20] LABS: Bedside Glucose 216 mg/dL (74-106)
== END 2024-10-31 09:20 | disposition short-term general hospital (02) ==
PROVIDERS: Emergency Provider Emergency Medicine; PCP Internal Medicine; Visit Provider Emergency Medicine
DX: A41.9 Sepsis, unspecified organism (principal); M86.8X8 Other osteomyelitis, other site; L89.159 Pressure ulcer of sacral region, unspecified stage; K63.2 Fistula of intestine; E16.2 Hypoglycemia, unspecified; Z79.82 Long term (current) use of aspirin; Z79.899 Other long term (current) drug therapy; R73.9 Hyperglycemia, unspecified
CPT/HCPCS: 36592; 71045; 74177; 80053; 81001; 82962; 83605; 85025; 85610; 85730; 87040; 87077; 87086; 87088; 87186; 93005; 96365; 96366; 96367; 96375; 99285; P9612; Q9967; A4216

== ENCOUNTER → 2024-11-28 | Outpatient (REF) | payer MEDICARE, MEDICAID, SELFPAY ==
--- OUTSIDE RECORDS SUMMARY | 2024-11-28 05:07 | XMS RPT_ITS | CCD ---
Author Organization [facility] Care Team Providers Care Accounts Payable Processor Name Role Phone Unavailable Unavailable Unavailable Melisa, Pravin Candace Unavailable [phone] MELISA, PRAVIN CANDACE Unavailable Unavailable MELISA, PRAVIN CANDACE Unavailable Unavailable MELISA, PRAVIN CANDACE Unavailable Unavailable MELISA, PRAVIN CANDACE Unavailable Unavailable Melisa, Pravin T Unavailable Unavailable Melisa, Pravin T Unavailable Unavailable Melisa, Pravin T Unavailable Unavailable BYRON GREENE Admitting Unavailable YADIRA ZAVALA Attending Unavailable JACY MATTSON Consulting Unavailable ROHINI VIDALES Consulting Unavailable Unavailable Primary Care Provider Unavailabl e Unavailable Primary Care Provider UnavailMIA Ledezma Attending Unavailable HAYDERDLA OLYAAPRIL Jones Referring Unavailable LAURIE STEVE Attending UnaDr. Olya Sparks MD Attending Provider Unavailabram Piña MD, Dr. Dobson Referring Provider UnavailDr. Jesus Trivedi DO Emergency Provider [phone] Wang VERDE, Dr. Dobson Primary Care Provider Unava ilable Valeria FUR FINISHER TAILOR - SECURITY SERGEANT, Henry I Unavailable Valeria FUR FINISHER TAILOR - SECURITY SERGEANT, Henry I Unavailable Gudla LILLIAN, Olya Attending Unavailable Gudla Varghese SNYDERyothi Referring Unavailable Gudla Varghese SNYDERyothi Attending Unavailable Gudla Olya SNYDER Attending Unavailable Gudla Olya SNYDER Attending Unavailable Gudla Olya SNYDER Attending Unavailable Gudla Varghese SNYDERyothi Referring Unavailable Gudla Varghese SNYDERyothi Attending Unavailable Gudla Olya SNYDER Attending Unavailable Gudla LILLIAN Olya Referring Unavailable Gudla Olya SNYDER Attending Unavailable Gudla LILLIAN, Olya Attending Unavailable Jesus Curtis Attending Unavailable Gudla, Olya Primary Care Unavailable Gudla OLS, Olya Attending Unavailable Gudla OLS, Olya Attending Unavailable Gudla OLS, Olya Attending Unavailable Gudla OLS, Olya Attending Unavailable Gudla OLS, Olya Attending Unavailable Gudla OLS, Olya Attending Unavailable Gudla OLS, Olya Attending Unavailable Gudla OLS, Olya Attending Unavailable Gudla OLS, Olya Attending Unavailable Gudla, Loya Primary Care Unavailable Gudla OLS, Olya Attending Unavailable Gudla OLS, Olya Attending Unavailable Gudla OLS, Olya Attending Unavailable Gudla OLS, Olya Attending Unavailable Gudla OLS, Olya Attending Unavailable Gudla OLS, Olya Referring Unavailable Gudla OLS, Olya Attending Unavailable Gudla, Olya Primary Care Unavailable Gudla OLS, Olya Attending Unavailable Gudla OLS, Olya Attending Unavailable Gudla, Olya Primary Care Unavailable Gudla OLS, Olya Attending Unavailable Gudla OLS, Olya Attending Unavailable Gudla OLS, Olya Attending Unavailable Gudla OLS, Olya Attending Unavailable Gudla OLS, Olya Referring Unavailable Unavailable Primary Care Provider UnavailBJORN Almonte Attending Unavailable FREDERIC CASTELAN JR Referring Unavailable JESUS CURTIS Referring Unavailable SHEY TRUJILLO Admitting Unavailable LONA QUINTANILLA Unavailable FREDERIC CASTELAN JR Attending Unavailable Medications Current Medications Medication Drug Class(es) Dates Sig (Normalized) Sig (Original) acetaminophen 325 mg oral tablet (13 sources) Start: 08-24-2024 take 2 tablets by mouth every four hours for pain acetaminophen (Tylenol) 325 mg tablet Indications: Osteomyelitis of right foot, unspecified type (Multi) , Gangrene of right foot (Multi) Take 2 tablets (650 mg) by mouth every 4 hours if needed for mild pain (1 - 3) or moderate pain (4 - 6). 08/24/2024 Active End: 11-09-2024 take 650 mg rectal route every four hours as needed fo r fever alanine 10.4 mg/ml / arginine 5.75 mg/ml / calcium chloride 0.004 meq/ml / dibasic potassium phosphate 2.61 mg/ml / glucose 150 mg/ml / glycine 5.15 mg/ml / histidine 2.4 mg/ml / isoleucine 3 mg/ml / leucine 3.65 mg/ml / lysine 2.9 mg/ml / magnesium chloride 0.01 meq/ml / methionine 2 mg/ml / phenylalanine 2.8 mg/ml / proline 3.4 mg/ml / serine 2.5 mg/ml / sodium acetate trihydrate 3.4 mg/ml / sodium chloride 0.01 meq/ml / threonine 2.1 mg/ml / tryptophan 0.9 mg/ml / tyrosine 0.2 mg/ml / valine 2.9 mg/ml injectable solution (1 source) Amino Acid amino acids 5% - electrolytes in D15W (CLINIMIX E) 5 % iv infusion Inject intravenously once daily. Use 106 mL/hr intravenously one time a day for FTT run for 8 hours, may stop for ATB Active aluminum hydroxide 40 mg/ml / magnesium hydroxide 40 mg/ml oral suspension (7 sources) take 30 mL by mouth every four hours as needed aluminum-magnesium hydroxide 200-200 MG/5ML suspension Take 30 mL by mouth every 4 hours as needed (GI distress). Active take 30 mL by mouth every four h ours as needed aluminum hydroxide 40 mg/ml / magnesium hydroxide 40 mg/ml / simethicone 4 mg/ml oral suspension (1 source) Start: 08-24-2024 take 20 mL by mouth four times daily as needed for gastroesophageal reflux disease alum-mag hydroxide-simeth (Mylanta) 200-200-20 mg/5 mL oral suspension Indications: Gastroesophageal reflux disease, unspecified whether esophagitis present Take 20 mL by mouth 4 times a day as needed for indigestion or heartburn. 08/24/2024 Active amoxicillin 875 mg / clavulanate 125 mg oral tablet (4 sources) Penicillin-class Antibacterial Start: 11-08-2024 End: 11-14-2024 ascorbic acid 500 mg oral tablet (2 sources) Vitamin C take 1 tablet by mouth once daily ascorbic acid (Vitamin C) 500 mg tablet Take 1 tablet (500 mg) by mouth once daily. Active benzonatate 100 mg oral capsule (8 sources) Non-narcotic Antitussive Start: 08-24-2024 take 1 capsule by mouth three times daily as needed for cough benzonatate (Tessalon) 100 mg capsule Indications: Cough, unspecified type Take 1 capsule (100 mg) by mouth 3 times a day as needed for cough. Do not crush or chew. 08/24/2024 Active bisacodyl 10 mg rectal suppository (9 sources) Stimulant Laxative Start: 08-24-2024 take 10 mg rectal route every twenty-four hours as needed for constipation and constipation bisacodyl (Dulcolax) 10 mg suppository Indications: Constipation, unspecified constipation type Insert 1 suppository (10 mg) into the rectum once daily as needed for constipation. 08/24/2024 Active take 30 mL rectal [place] once for constipation bisacodyl (Fleet Bisacodyl) 10 mg/30 mL enema Insert 30 mL (10 mg) into the rectum 1 time if needed for constipation. Active Continue current TPN formula (1 source) Start: 08-21-2024 Continue curre nt TPN formula Indications: Generalized weakness See AVS for most recent TPN formula. Clinimix 5/20 to run at 100ml/hr for 12 hours. OR Clinimix 5/20 at 50ml/hr for 24hrs. with 250ml 20% lipids 1 Package 08/21/2024 Active famotidine 40 mg oral tablet (2 sources) Histamine-2 Receptor Antagonist Start: 10-05-2016 End: 10-05-2017 take 1 tablet by mouth once daily famotidine (PEPCID) 40 MG tablet Indications: Weight loss Take 1 tablet (40 mg total) by mouth daily. 30 tablet 11 10/05/2016 10/05/2017 Active gabapentin 300 mg oral capsule (20 sources) Anti-epileptic Agent Start: 11-09-2024 End: 11-09-2025 take 1 capsule by mouth three times daily gabapentin (Neurontin) 300 MG capsule Take 1 capsule (300 mg) by mouth 3 times daily. 11/09/2024 11/09/2025 Active Start: 11-01-2024 End: 11-09-2025 Start: 10-31-2024 End: 11-09-2024 take 100 mg by mouth three times daily 100 mg, Oral, 3 times daily, First dose on Wed10/31/24 at 1400 Start: 10-31-2024 take 1 tablet by teresa once daily Gabapentin 100 mg tab Take 1 tablet by mouth once daily. Active glimepiride 1 mg oral tablet (3 sources) Sulfonylurea Start: 01-26-2017 End: 01-26-2018 take 0.5 tablet by mouth once daily before breakfast glimepiride (AMARYL) 1 MG tablet Indications: Weight loss Take 0.5 (one-half) tablet (0.5 mg total) by mouth every morning before breakfast. 15 tablet 11 01/26/2017 01/26/2018 Active Start: 10-05-2016 End: 01-26-2017 take 1 tablet by mouth once daily before breakfast glimepiride (AMARYL) 1 MG tablet Indications: Weight loss Take 1 tablet (1 mg total) by mouth every morning before breakfast. 30 tablet 11 10/05/2016 01/26/2017 Discontinued heparin sodium, porcine 5000 unt/ml injectable solution (8 sources) Unfractionated Heparin, Anti-coagulant Start: 10-31-2024 inject 5000 [IU] by subcutaneous injection every twelve hours heparin 5000 UNIT/ML injection Inject 5,000 Units under the skin every 12 hours. Active hydrogen peroxide 30 mg/ml topical solution (1 source) Start: 08-24-2024 hydrogen perox emily 3 % external solution Indications: Chronic ulcer of left leg, with necrosis of muscle (Multi) Apply topically once daily as needed for wound care. 08/24/2024 Active Insulin Lispro (Humalog) injection 0-6 Units (2 sources) Start: 10-31-2024 Insulin Lispro (Humalog) injection 0-6 Units lactobacillus rhamnosus gg [id number] unt oral capsule (1 source) take 1 capsule by mouth twice daily lactobacillus (Culturelle) 10 billion cell capsule Take 1 capsule by mouth 2 times a day. End date 09/23/24 Active magnesium hydroxide 80 mg/ml oral suspension (8 sources) magnesium hydrox emily (Milk of Magnesia) 400 MG/5ML suspension Take 30 mL by mouth. As needed for constipation x1 Active magnesium hydrox emily (Milk of Magnesia) 400 mg/5 mL suspension Take 30 mL by mouth every 24 (twenty four) hours if needed for constipation. Active multivit infusn,adult 4,vit K (INFUVITE ADULT INTRAVENOUS) (1 source) inject 10 mL intravenously once daily multivit infusn,adult 4,vit K (INFUVITE ADULT INTRAVENOUS) Inject 10 mL intravenously once daily. Add to clinimex Active multivit infusn,adult 4,vit K (INFUVITE ADULT IV) (1 source) take 10 mL intravenously once daily multivit infusn,adult 4,vit K (INFUVITE ADULT IV) Infuse 10 mL into a venous catheter once daily. Active multivit,calc,mins/ir on/folic (THERA-M ORAL) (1 source) take 1 tablet by mouth once daily multivit,calc,mins/i nighat/folic (THERA-M ORAL) Take 1 tablet by mouth once daily. Active multivitamin tablet (1 source) take 1 tablet by mouth once daily multivitamin tablet Take 1 tablet by mouth once daily. Active 2 ml ondansetron 2 mg/ml injection (1 source) Serotonin-3 Receptor Antagonist Start: take 4 mg intravenously every four hours as needed for nausea and nausea ondansetron (Zofran) 4 mg/2 mL injection Indications: Nausea Infuse 2 mL (4 mg) into a venous catheter every 4 hours if needed for nausea or vomiting. 08/24/2024 Active oxyCODONE hydrochloride 10 mg oral tablet (10 sources) Opioid Agonist Start: End: Start: 11-01-2024 End: 11-14-2024 take 10 mg by mouth every twenty-four hours as needed piperacillin 4000 mg / tazobactam 500 mg injection (1 source) Penicillin-class Antibacterial, beta Lactamase Inhibitor take 100 mL intravenously four times daily piperacillin-tazobactam (Zosyn) 4.5 gram/100 mL IV Infuse 100 mL (4.5 g) into a venous catheter 4 times a day. End date 09/22/24 Active piperacillin-tazo bactam (Zosyn) 4,500 mg in sodium chloride 0.9 % 100 mL IVPB Mini-Bag Plus (4 sources) Star t: 0608-17 take 4500 mg intravenously every six hours 4,500 mg, IntraVENous, at 33.3 mL/hr, Administer over 3 Hours, Every 6 hours, First dose (after last modification) on Wed10/31/24 at 2100, *Adjusted dose from 3.375g IV q6h for estimated CRCl > 40mL/min per P&T policy. Original start date = 6/3/25* Mini-Bag Plus bag, Suspected Indication (Select all that apply): Skin and Soft Tissue Infection Start: 10-31-2024 End: 10-31-2024 4,500 mg, IntraVENous, at 33 .3 mL/hr, Administer over 3 Hours, Once, On Wed10/31/24 at 1430, For 1 dose, Mini-Bag Plus bag, Suspected Indication (Select all that apply): Skin and Soft Tissue Infection potassium chloride 20 meq extended release oral tablet (2 sources) Start: 01-01-2017 take 20 mEq by mouth once daily potassium chloride 20 mEq TbER Take 20 mEq by mouth daily. 01/01/2017 Active Sodium Phosphates (FLEET ENEMA RE) (5 sources) Sodium Phosphate s (FLEET ENEMA RE) Insert 1 enema into the rectum. As needed for constipation x2 per episodes if Dulcolax suppository ineffective Active Sodium Phosphate s (FLEET ENEMA RE) Insert 1 enema into the rectum. As needed for constipation x2 per episodes if Dulcolax suppository ineffective Suspended stomahesive in petrolatum (ET Mix) (4 sources) Start: 11-01-2024 apply 1 dose topically every eight hours Topical, Every 8 hours, First dose on Wed11/01/24 at 1230, Apply to sacrum Start: 11-01-2024 Topical, PRN, dry skin, Starting on Wed11/01/24 at 1225 trace elements Zn-Cu-Mn-Se (Multitrace) 3 mg-0.3 mg-55 mcg-60 mcg/mL solution (1 source) trace elements Zn-Cu-Mn-Se (Multitrace) 3 mg-0.3 mg-55 mcg-60 mcg/mL solution Infuse 1 mL (0.06 mg) into a venous catheter. Use with Clinimex Active traZODone hydrochloride 50 mg oral tablet (1 source) Serotonin Reuptake Inhibitor Start: traZODone (Desyrel) 50 mg tablet Indications: Insomnia, unspecified type Take 1 tablet (50 mg) by mouth as needed at bedtime for sleep (second line). 08/24/2024 Active vancomycin (Vancocin) 500 mg in sodium chloride 0.9 % 100 mL IVPB (2 sources) Start: 025 500 mg (rounded from 496.5 mg = 15 mg/kg 33.1 kg), IntraVENous, at 100 mL/hr, Administer over 60 Minutes, Every 12 hours, First dose on Wed11/01/24 at 0900, ADD-Ainsworth bag, Suspected Indication (Select all that apply): Skin and Soft Tissue Infection vitamin B complex/minerals (STRESS B PLUS ZINC ORAL) (1 source) take 1 tablet by mouth once daily vitamin B complex/minerals (STRESS B PLUS ZINC ORAL) Take 1 tablet by mouth once daily. For wound healing Active zinc sulfate 220 mg oral tablet (7 sources) take 1 tablet by mouth twice daily Zinc Sulfate 220 (50 Zn) MG tablet Take 220 mg by mouth 2 times daily. Active zinc/copper/manganese /selenium (TRALEMENT INTRAVENOUS) (1 source) inject 1 mL intravenously once daily zinc/copper/manganes e/selenium (TRALEMENT INTRAVENOUS) Inject intravenously once daily. 955-01-05-3000 mcg/ml Use 1 mL intravenously one time a day for draw up 1 mL and add to bag of clinimix prior to infusing related to adult failre to thrive Active Completed/Discontinued Medications Medication Drug Class(es) Dates Sig (Normalized) Sig (Original) acetaminophen 325 mg / oxyCODONE hydrochloride 5 mg oral tablet (10 sources) Opioid Agonist Start: 10-31-2024 End: 11-01-2024 take 1 tablet by mouth every six hours as needed for pain and pain 1 tablet, Oral, Every 6 hours PRN, severe pain (7-10), moderate pain (4-6), Starting on Wed10/31/24 at 1323, For 2 days, Maximum dose of acetaminophen is 4000 mg from all sources in 24 hours. Start: 08-24-2024 End: 11-01-2024 Start: 08-24-2024 take 1 tablet by teresa th every six hours for pain oxyCODONE-acetaminophen (Percocet) 5-325 mg tablet Indications: Osteomyelitis of right foot, unspecified type (Multi) , Gangrene of right foot (Multi) Take 1 tablet by mouth every 6 hours if needed for severe pain (7 - 10). 8 tablet 08/24/2024 Active End: 11-01-2024 take 1 tablet by mouth every eight hours as needed oxyCODONE-acetaminophen (Percocet) 5-325 MG tablet Take 1 tablet by mouth every 8 hours as needed (acute pain). Until 11/05/24 11/01/2024 Discontinued alanine 10.4 mg/ml / arginin e 5.75 mg/ml / glucose 150 mg/ml / glycine 5.15 mg/ml / histidine 2.4 mg/ml / isoleucine 3 mg/ml / leucine 3.65 mg/ml / lysine 2.9 mg/ml / methionine 2 mg/ml / phenylalanine 2.8 mg/ml / proline 3.4 mg/ml / serine 2.5 mg/ml / threonine 2.1 mg/ml / tryptophan 0.9 mg/ml / tyrosine 0.2 mg/ml / valine 290 mg/ml injectable solution (4 sources) Amino Acid End: 11-09-2024 Amino Acid Infus ion in D15W (Clinimix in Dextrose, 10/12,) 5 % infusion Use 120mL/hr intravenously in evening to run for 10 hours Suspended aspirin 81 mg delayed release oral tablet (13 sources) Platelet Aggregation Inhibitor, Nonsteroidal Anti-inflammatory Drug Start: 11-01-2024 End: 11-09-2024 Start: 08-24-2024 End: 09-23-2024 take 1 tablet by mouth once daily aspirin 81 mg EC tablet Indications: Peripheral vascular disease, unspecified (CMS-HCC) Take 1 tablet (81 mg) by mouth once daily. 08/24/2024 09/23/2024 atorvastatin 80 mg oral tabl et (14 sources) HMG-CoA Reductase Inhibitor Start: 08-24-2024 End: 11-09-2024 calcium chloride 0.0014 meq/ ml / potassium chloride 0.004 meq/ml / sodium chloride 0.103 meq/ml / sodium lactate 0.028 meq/ml injectable solution (4 sources) Start: 11-01-2024 End: 11-01-2024 Start: 11-01-2024 End: 11-01-2024 1,000 mL, IntraVENous, at 50 0 mL/hr, Administer over 2 Hours, Once, On Wed11/01/24 at 0815, For 1 dose cholecalciferol 9.52 unt/ml / glucose 357 mg/ml oral gel (4 sources) Vitamin D Start: 10-31-2024 End: 11-09-2024 citalopram 40 mg oral tablet (16 sources) Serotonin Reuptake Inhibitor Start: 10-31-2024 End: 11-09-2024 Start: 10-31-2024 End: 10-31-2024 collagenase 0.25 unt/mg topical ointment (2 sources) Collagen-specific Enzyme Start: 11-07-2024 End: 11-09-2024 dextrose 5% piggyback 100 mL with piperacillin-tazoba ctam 4.5 gram recon soln 4.5 g (1 source) Start: 08-24-2024 End: 09-22-2024 dextrose 5% piggyback 100 mL with piperacillin-tazobact am 4.5 gram recon soln 4.5 g Indications: Osteomyelitis of right foot, unspecified type (Multi) Infuse 4.5 g into a venous catheter every 6 hours. 08/24/2024 09/22/2024 Drug or medicament (substance) (6 sources) Start: 11-01-2024 End: 11-07-2024 Start: 11-01-2024 End: 11-07-2024 0.3 ml enoxaparin sodium 100 mg/ml prefilled syringe (4 sources) Low Molecular Weight Heparin Start: 10-31-2024 End: 11-09-2024 ferrous sulfate 325 mg oral tablet (13 sources) Start: 11-01-2024 End: 11-09-2024 Start: 08-24-2024 End: 09-23-2024 take 1 tablet by mouth once daily at breakfast ferrous sulfate tablet Indications: Iron deficiency anemia, unspecified iron deficiency anemia type Take 1 tablet (325 mg) by mouth once daily with breakfast. 08/24/2024 09/23/2024 take 1 tablet by teresa once daily at breakfast ferrous sulfate 325 (65 Fe) MG EC tablet Take 325 mg by mouth daily (with breakfast). Do not crush, chew, or split. Active glucagon (rdna) 1 mg injecti on (5 sources) Antihypoglycemic Agent Start: 10-31-2024 End: 11-09-2024 GLUCAGON HCL INJ Inject 1 mL as directed if needed. Active 50 ml glucose 50 mg/ml injec tion (16 sources) Start: 10-31-2024 End: 11-09-2024 Start: 10-31-2024 End: 11-09-2024 Start: 10-31-2024 glucose (Glutose ) 40 % gel oral gel Take 15 g by mouth. As needed for hypoglycemic episode Active glucose (Glutose ) 40 % gel oral gel Take by mouth 1 time if needed for low blood sugar - see comments. Active 12 hr guaiFENesin 600 mg extended release oral tablet (14 sources) Start: 08-24-2024 End: 09-23-2024 take 1 tablet by mouth twice daily as needed for congestion guaiFENesin (Mucinex) 600 mg 12 hr tablet Indications: Cough, unspecified type Take 1 tablet (600 mg) by mouth 2 times a day as needed for congestion. Do not crush, chew, or split. 08/24/2024 09/23/2024 take 3 tablets by mo uth three times daily as needed guaiFENesin (Humibid 3) 400 MG tablet Take 400 mg by mouth 3 times daily as needed for congestion. Active End: 11-09-2024 take 200 mg by mouth every four hours as needed for cough and congestion 1 ml HYDROmorphone hydrochloride 1 mg/ml cartridge (2 sources) Opioid Agonist Start: 11-03-2024 End: 11-06-2024 take 0.5 mg intravenously every twenty-four hours as needed hydrOXYzine hydrochloride 10 mg oral tablet (11 sources) Antihistamine Start: 11-07-2024 End: 11-09-2024 take 25 mg by mouth every eight hours as needed Start: 08-24-2024 take 1 tablet by teresa th every four hours for anxiety hydrOXYzine HCL (Atarax) 25 mg tablet Indications: Itching Take 1 tablet (25 mg) by mouth every 4 hours if needed for anxiety or itching. 30 tablet 08/24/2024 Active End: 11-09-2024 take 1 capsule by mouth every four hours as needed for anxiety hydrOXYzine pamoate (Vistaril) 25 MG capsule Take 25 mg by mouth every 4 hours as needed for itching or anxiety. X 2 weeks until 11/09/24 Active insulin, regular, human 100 unt/ml injectable solution (10 sources) Insulin End: 11-09-2024 insulin regular (HumuLIN R,NovoLIN R) 100 UNIT/ML injection Inject 0-8 Units under the skin Nightly. Sliding Scale: BG 0-149 = 0 units/ 150-200 = 3 units; 201-250 = 5 units; 251-350 = 8 units; > 350 - Notify Suspended insulin regular (HumuLIN R,NovoLIN R) 100 unit/mL injection Inject under the skin. Take as directed per sliding scale insulin instructions. Active iopamidol (Isovue-370) 76 % injection 75 mL (2 sources) Start: 10-31-2024 End: 10-31-2024 take 75 mL intravenously once as needed 75 mL, IntraVENous, IMG once PRN, contrast, Starting on Wed10/31/24 at 1633, For 1 dose mirtazapine 15 mg oral tablet (13 sources) Start: 10-31-2024 End: 11-09-2024 take 1 tablet by mouth once tracie y mirtazapine (Remeron) 30 MG tablet Take 30 mg by mouth Nightly. Active take 1 tablet by teresa th once daily at bedtime mirtazapine (Remeron) 15 mg tablet Take 1 tablet (15 mg) by mouth once daily at bedtime. Active multivitamin with iron (Cerovite Jr) chewable tablet (1 source) Start: 08-24-2024 End: 09-23-2024 multivitamin with iron (Cerovite Jr) chewable tablet Indications: FTT (failure to thrive) in adult Chew 1 tablet once daily. 30 tablet 08/24/2024 09/23/2024 1 ml naloxone hydrochloride 0.4 mg/ml injection (4 sources) Opioid Antagonist Start: 10-31-2024 End: 11-09-2024 polyethylene glycol 3350 06988 mg powder for oral solution (13 sources) Osmotic Laxative Start: 08-24-2024 End: 11-09-2024 take 17 g by mouth every twenty-four hours as needed for constipation prochlorperazine 5 mg/ml injectable solution (4 sources) Phenothiazine Start: 10-31-2024 End: 11-09-2024 take 5 mg intravenously every six hours as needed for nausea and vomiting 50 ml sodium chloride 9 mg/ml injection (20 sources) Start: 11-01-2024 250 mL/hr, IntraVENous, Administer over 10 Minutes, As needed, For use in priming line prior to transfusion (prime via gravity) and flush line post transfusion, Starting on Wed11/01/24 at 0245, For 1 dose, For use in priming line prior to transfusion (prime via gravity) and flush line post transfusion ONLY. Discontinue once line has been cleared of remaining blood product. Start: 10-31-2024 take 5-40 mL intrave nously every twelve hours 5-40 mL, IntraVENous, Every 12 hours, First dose on Wed10/31/24 at 1115, For Line Patency: Peripheral IV = 5 mL; Midline or Central Line = 10 mL/lumen. If following IV push medication, administer flush at same rate as the IV push. Flush volume is determined by type of infusion therapy being given. For non-viscous solutions use: Peripheral IV = 5 mL Midline or Central Line = 10 mL/lumen For viscous solutions (i.e. blood components, parenteral nutrition, contrast media, or after obtaining blood sample) use: Peripheral IV = 10 mL Midline or Central Line = 20 mL/lumen Start: 10-31-2024 5-40 mL, Intra VENous, PRN, line care, After every IV line use, Starting on Wed10/31/24 at 1111, For Line Patency: Peripheral IV = 5 mL; Midline or Central Line = 10 mL/lumen. If following IV push medication, administer flush at same rate as the IV push. Flush volume is determined by type of infusion therapy being given. For non-viscous solutions use: Peripheral IV = 5 mL Midline or Central Line = 10 mL/lumen For viscous solutions (i.e. blood components, parenteral nutrition, contrast media, or after obtaining blood sample) use: Peripheral IV = 10 mL Midline or Central Line = 20 mL/lumen Start: 10-31-2024 End: 11-09-2024 Start: 10-31-2024 End: 11-09-2024 take 5-40 mL intravenously every twelve hours sodium chloride 0.9 % bolus 500 mL. Use 125 mL/hr intravenously in AM for hydration - run AFTER TPN for 4 hours to total 500mL Active 0.9 % sodium chl oride (sodium chloride 0.9%) solution Infuse 100 mL/hr at 100 mL/hr into a venous catheter. Run for 4 hours Active 0.9 % sodium chl oride (NACL 0.9%) infusion Inject 100 mL/hr intravenously once daily. One time a day for hydration run for four hours then stop Active vancomycin (Vancocin) 750 mg in sodium chloride 0.9 % 250 mL IVPB (2 sources) Start: 10-31-2024 End: 10-31-2024 750 mg, IntraVENous, at 250 mL/hr, Administer over 60 Minutes, Once, On Wed10/31/24 at 1530, For 1 dose, ADD-Ainsworth bag, Suspected Indication (Select all that apply): Skin and Soft Tissue Infection (14 sources) Start: 11-02-2024 End: 11-03-2024 take 750 mg intravenously every twelve hours Start: 11-01-2024 End: 11-02-2024 Start: 10-31-2024 End: 11-08-2024 take 4500 mg intravenously every six hours Start: 10-31-2024 End: 10-31-2024 Start: 10-31-2024 End: 10-31-2024 Start: 10-31-2024 End: 11-09-2024 inject 6 [IU] by subcutaneous injection once daily [Order 1 Start] Name: Insulin Lispro (Humalog) injection 0-6 Units Signed Summary: 0-6 Units, SubCUTAneous, 3 times daily with meals, First dose on Wed10/31/24 at 1200, Low Dose Correction Algorithm Glucose: Dose: LESS than 150 No Insulin 150-199 1 Unit 200-249 2 Units 250-299 3 Units 300-349 4 Units 350-400 5 Units Above 400 6 Units [Order 1 End] [Order 2 Start] Name: Insulin Lispro (Humalog) injection 0-6 Units Signed Summary: 0-6 Units, SubCUTAneous, Nightly, First dose on Wed10/31/24 at 2100, If eating or bolus tube feeding: Low Dose Correction Algorithm Glucose: Dose: LESS than 150 No Insulin 150-199 1 Unit 200-249 2 Units 250-299 3 Units 300-349 4 Units 350-400 5 Units Above 400 6 Units [Order 2 End] Start: 10-31-2024 (2 sources) Start: 10-31-2024 End: 10-31-2024 Problems Active Problems Problem Classification Problem Date Documented Da te Episodic/Chronic Chronic kidney disease (4 sources) Chronic kidney disease stage 3; Translations: [Chronic kidney disease] Onset: 03-09-2017 03-09-2017 Chronic Chronic ulcer of skin (20 sources) Non-pressure chronic ulcer of unspecified part of left lower leg with necrosis of muscle; Translations: [Chronic ulcer of lower extremity] Onset: 08-10-2024 Resolved: 08-21-2024 Chronic Complications of surgical procedures or medical care (17 sources) Infection of intravenous catheter; Translations: [Unspecified infection due to central venous catheter, initial encounter] Onset: 10-31-2024 11-01-2024 Episodic Deficiency and other anemia (2 sources) Iron deficiency anemia, unspecified; Translations: [Iron deficiency anemia, unspecified] Onset: 08-10-2024 Episodic Deficiency and other anemia (1 source) Anemia, unspecified; Translations: [Anemia, unspecified] Onset: 11-08-2024 Episodic Diabetes mellitus without complication (4 sources) Type 2 diabetes mellitus without complication; Translations: [Type 2 diabetes mellitus without complications] Onset: 10-05-2016 10-05-2016 Chronic Diseases of white blood cells (1 source) Elevated white blood cell count, unspecified; Translations: [Elevated white blood cell count, unspecified] Onset: 11-15-2024 Chronic Esophageal disorders (2 sources) Gastro-esophageal reflux disease without esophagitis; Translations: [Gastro-esophageal reflux disease without esophagitis] Onset: 08-10-2024 Chronic Gangrene (5 sources) Gangrene, not elsewhere classified; Translations: [Gangrene of right foot] Onset: 08-10-2024 Resolved: 08-21-2024 Episodic Infective arthritis and osteomyelitis (except that caused by tuberculosis or sexually transmitted disease) (7 sources) Osteomyelitis, unspecified; Translations: [Chronic osteomyelitis of right foot] Onset: 08-10-2024 Chronic Malaise and fatigue (2 sources) Weakness; Translations: [Weakness] Onset: 08-10-2024 Episodic Nausea and vomiting (2 sources) Nausea; Translations: [Nausea] Onset: 08-10-2024 Episodic Nutritional deficiencies (20 sources) Unspecified protein-calorie malnutrition; Translations: [Nutritional marasmus] Onset: 08-10-2024 Chronic Other aftercare (2 sources) Patient encounter status; Translations: [Encounter for palliative care] 11-06-2024 Episodic Other aftercare (2 sources) Encounter for palliative care; Translations: [Encounter for palliative care] Onset: 10-31-2024 Episodic Other gastrointestinal disorders (2 sources) Constipation, unspecified; Translations: [Constipation, unspecified] Onset: 08-10-2024 Episodic Other gastrointestinal disorders (8 sources) External large bowel fistula; Translations: [Fistula of intestine] Onset: 11-22-2024 09-26-2024 Episodic Other gastrointestinal disorders (4 sources) Fistula of intestine; Translations: [Colocutaneous fistula] Onset: 09-25-2024 Episodic Other inflammatory condition of skin (2 sources) Pruritus, unspecified; Translations: [Pruritus, unspecified] Onset: 08-10-2024 Episodic Other injuries and conditions due to external causes (4 sources) Wound pain ; Translations: [Other injury of unspecified body region, initial encounter] 11-06-2024 Episodic Other injuries and conditions due to external causes (2 sources) Other injury of unspecified body region, initial encounter; Translations: [Other injury of unspecified body region, initial encounter] Onset: 10-31-2024 Episodic Other nutritional; endocrine; and metabolic disorders (2 sources) Adult failure to thrive; Translations: [Adult failure to thrive] Onset: 08-10-2024 Episodic Other nutritional; endocrine; and metabolic disorders (3 sources) Pediatric failure to thrive; Translations: [Failure to thrive (child)] Onset: 09-20-2024 09-27-2024 Episodic Other nutritional; endocrine; and metabolic disorders (1 source) Failure to thrive (child); Translations: [Failure to thrive (child)] Onset: 09-20-2024 Episodic Other screening for suspected conditions (not mental disorders or infectious disease) (1 source) Abnormal finding of blood chemistry, unspecified; Translations: [Abnormal finding of blood chemistry, unspecified] Onset: 11-06-2024 Episodic Peripheral and visceral atherosclerosis (8 sources) Atherosclerosis of [place] arteries of left leg with ulceration of other part of lower leg; Translations: [Atherosclerosis of [place] arteries of right leg with ulceration of other part of lower leg] Onset: 08-10-2024 Chronic Residual codes; unclassified (2 sources) Insomnia, unspecified; Translations: [Insomnia, unspecified] Onset: 08-10-2024 Episodic Skin and subcutaneous tissue infections (2 sources) Cellulitis, unspecified; Translations: [Cellulitis, unspecified] Onset: 08-10-2024 Episodic Unclassified (1 source) Cough, unspecified; Translations: [Cough, unspecified] Onset: 08-10-2024 Past or Other Problems Problem Classification Problem Date Documented Da te Episodic/Chronic Deficiency and other anemia (4 sources) Normocytic hypochromic anemia; Translations: [Iron deficiency anemia, unspecified] Onset: 03-09-2017 03-09-2017 Episodic Fluid and electrolyte disorders (10 sources) Hyponatremia; Translations: [Hypokalemia] Onset: 10-06-2016 10-06-2016 Episodic Other aftercare (2 sources) longterm (current) use of insulin; Translations: [watermaster (current) use of insulin] Onset: 01-26-2017 Episodic Other gastrointestinal disorders (5 sources) Diarrhea; Translations: [Diarrhea, unspecified] Onset: 10-05-2016 01-27-2017 Episodic Other hematologic conditions (4 sources) ESR raised; Translations: [Elevated erythrocyte sedimentation rate] Onset: 03-09-2017 03-09-2017 Episodic Other nutritional; endocrine; and metabolic disorders (4 sources) Weight decreased; Translations: [Weight loss] Onset: 10-05-2016 10-05-2016 Episodic Other nutritional; endocrine; and metabolic disorders (1 source) Adult failure to thrive syndrome; Translations: [Adult failure to thrive] Onset: 08-10-2024 Resolved: 08-21-2024 08-21-2024 Episodic Unclassified (4 sources) Edema of foot; Translations: [Localized edema] Onset: 01-26-2017 01-27-2017 Episodic Unclassified (1 source) Cough, unspecified; Translations: [Cough, unspecified] Onset: 08-10-2024 Unclassified (1 source) Onset: 09-20-2024 09-20-2024 Unclassified (6 sources) Decubitus ulcer of sacral region, unstageable (HCC) 11-01-2024 Unclassified (2 sources) Patient encounter status 11-09-2024 NEGATED: Highlighted row has been ruled out!Unclassified (1 source) No known active problems 08-17-2024 Results Test Name Value Interpretation Reference Range Facility 2911-22-2024 29 Encounter addended b y: Paulette Schofield RN on: 11/23/2024 4:09 PM Actions taken: LDA properties accepted Normal [facility] 37on 11-22-2024 37 Return Appointment i n: 2 weeks- Should you experience any significant changes in your wound(s) or have any questions regarding your home care instructions please contact the wound center at [employer] - [phone]. If after regular business hours, please call your family doctor or local emergency room. Offloading: Heel suspension boot to: both feet Gel mattress overlay (Group 1) Roho cushion for wheelchair Turn and reposition every 2 hours Additional Orders/Instructions: Follow diet per physicians instructions - such as increasing protein intake to promote wound healing Nursing Care Facility: [facility] Wound Treatment: Wound: Left calf, Right amp site, right and left heels Dressing Frequency: Change dressing once a day Wound Cleansing: Cleanse affected area with soap and water - using a mild antibacterial soap such as Dial Topical: Santyl - apply nickel thickness amount to wound bed Secondary Dressing: ABD Secure With: Kerlex Roll gauze 4", Silk Tape 2" Wound Treatment: Wound: Sacrum Dressing Frequency: Change dressing once a day Wound Cleansing: Cleanse affected area with soap and water - using a mild antibacterial soap such as Dial Cydney-Wound Care: Skin Prep Primary Dressing: Collagen Secondary Dressing: ABD Secure With: Medfix tape 2" Recommend using an osotmy bag over fistula sites. ABD pads applied today in the clinic Normal [facility] Progress Noteon 11-22-2024 Progress Note INITIAL VISIT - [facility] Yoko Emanuel AGE: 69 y.o. GENDER: female : 1955 TODAY'S DATE: 11/22/2024 HISTORY OF PRESENT ILLNESS: Yoko Emanuel is a 69 y.o. female who presents today for evaluation of multiple pressure ulcers and abd. Fistulae (?colocutaneous). She is chronically malnourished, suffers deconditioning, and is wheel chair bound from weakness. She is referred from [facility] at this time (Which coincides with loss of medicare coverage.) She has been at [facility] near [place] for 7 wks. She was admitted and treated at [facility] for sepsis and underwen trans met. Amp. Right foot, apparently for osteomyelitis. She was in palliative care during recovery. Pt. 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 She states she "cares for it herself" and refuses ostomy care. Current pressure ulcers involve both heels, achilles, and sacrum. She has a non-heeling wound/ulcer at amp. Site of foot. 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) Pressure ulcer of sacral region, stage 3 (HCC) Review of Systems: General: Fever: Negative Night Sweats: Negative Eye: Blurry Vision:Negative Double Vision: Negative Ent: Headaches: Negative Sore throat: neg Ear pain or drainage: Negative Allergy/Immunology: Hives: Negative Hematology/Lymphatic: Bleeding Problems: Negative Blood Clots: Negative Swollen Lymph Nodes: Negative Lungs: Cough: Negative SOB: Negative Cardiovascular: Chest Pain: Negative Palpitations:Negative GI: Nausea/Vomiting: Negative Abdominal Pain: Negative Change in Bowels: Positive for see above re: fistulae : Dysuria: Negative Increase Urinary Frequency/Urgency: Negative Neuro: Seizures: Negative Confusion: Negative PAST MEDICAL HISTORY: No family history on file. Social History Socioeconomic History Marital status: Spouse name: Not on file Number of children: Not on file Years of education: Not on file Highest education level: Not on file Occupational History Not on file Tobacco Use Smoking status: Former Packs/day: 0.00 Years: 2.0 packs/day for 65.0 years (130.0 ttl pk-yrs) Types: Cigarettes Start date: 1959 Quit date: 05/2024 Years since quittin.4 Smokeless tobacco: Never Substance and Sexual Activity Alcohol use: Never Drug use: Never Sexual activity: Not on file Other Topics Concerns: Not on file Social History Narrative Not on file Social Drivers of Health Financial Resource Strain: Not on file Food Insecurity: No Food Insecurity (10/31/2024) Hunger Vital Sign Worried About Running Out of Food in the Last Year: Never true Ran Out of Food in the Last Year: Never true Transportation Needs: No Transportation Needs (10/31/2024) PRAPARE - Transportation Lack of Transportation (Medical): No Lack of Transportation (Non-Medical): No Physical Activity: Not on file Stress: Not on file Social Connections: Not on file Intimate Partner Violence: Not At Risk (10/31/2024) Humiliation, Afraid, Rape, and Kick questionnaire Fear of Current or Ex-Partner: No Emotionally Abused: No Physically Abused: No Sexually Abused: No Housing Stability: Low Risk (10/31/2024) Housing Stability Vital Sign Unable to Pay for Housing in the Last Year: No Number of Times Moved in the Last Year: 1 Homeless in the Last Year: No No past surgical history on file. No past medical history on file. Current Outpatient Medications: acetaminophen (Tylenol) 325 MG tablet, Take 650 mg by mouth every 4 hours as needed for fever (pain)., Disp: , Rfl: aluminum-magnesium hydroxide 200-200 MG/5ML suspension, Take 30 mL by mouth every 4 hours as needed (GI distress)., Disp: , Rfl: aspirin 81 MG EC tablet, Take 81 mg by mouth daily., Disp: , Rfl: atorvastatin (Lipitor) 80 MG tablet, Take 80 mg by mouth Nightly., Disp: , Rfl: benzonatate (Tessalon) 100 MG capsule, Take 100 mg by mouth 3 times daily as needed for cough. Do not crush or chew., Disp: , Rfl: bisacodyl (Dulcolax) 10 MG suppository, Insert 10 mg into the rectum. As needed for constipation x1 per episode if MOM ineffective, Disp: , Rfl: citalopram (CeleXA) 10 MG tablet, Take 10 mg by mouth daily., Disp: , Rfl: ferrous sulfate 325 (65 Fe) MG EC tablet, Take 325 mg by mouth daily (with breakfast). Do not crush, chew, or split., Disp: , Rfl: gabapentin (Neurontin) 300 MG capsule, Take 1 capsule (300 mg) by mouth 3 times daily., Disp: , Rfl: glucose (Glutose) 40 % gel oral gel (more content not included)... Normal [facility] Progress Note Assessments Nursing Assessment/Reassessment Score (check box all that apply) Reassessment of Co-morbidities (includes updates in patient status) 10 [] Wound and Skin Assessment/Reassessment 5 [x] Reassessment of Adherence to Treatment Plan Simple Wound Assessment / Reassessment - one wound 5 [x] Complex Wound Assessment - multiple wounds (# of: ) multiply by 5 to get score [] Dermatologic / Skin Assessment (not related to wound area) 10 [] Focused Assessment Circumferential Edema Measurements - multi extremities (# of: ) multiply by 5 to get score [] Nutritional Assessment/Counseling/Int ervention 10 [] Lower Extremity Assessment (monofilament, tuning fork, pulses) 5 [] Peripheral Arterial Disease Assessment (using hand-held doppler) 10 [] Ostomy and/or Continence Assessment & Care Incontinence Assessment and Management 10 [] Ostomy Care Assessment and Management (repouching, etc) 20 [x] Process Coordination of Care Simple Patient/Family Education for ongoing care 15 [x] Complex (extensive) Patient/Family Education for ongoing of care 20 [] Staff obtains Consent, Records, Test Results/Process Orders 10 [x] Staff telephones [facility], Nursing Homes/Clarify Orders 10 [] Routine Transfer to another Facility (non-emergent condition) 10 [] Routine Hospital Admission (non-emergent condition) 10 [] New Admissions/Insurance Auth/Ordering NPWT, skin substitute, etc. 15 [] Emergency Hospital Admission (emergent condition) 20 [] Simple Discharge Coordination 10 [x] Complex (extensive) Discharge Coordination 15 [] Special Needs Pediatric / Minor Patient Management 10 [] Isolation Patient Management 10 [] Hearing/Language/Visual Special Needs 15 [] Assessment of Community Assistance (transportation, discharge planning) 15 [] Additional Assistance / Altered Mentation 15 [] Support Surface Assessment (bed, cushion, seat) 15 [] Interventions Wound Cleansing/Measurement Simple Wound Cleansing - one wound 5 [] Complex Wound Cleansing - multiple wounds (# of: 3) multiply by 5 to get score 15 [x] Wound Imaging (photographs - any number of wounds) 5 [x] Wound Tracing (instead of photographs) 5 [] Simple Wound Measurements - one wound 5 [x] Complex Wound Measuremnts - multiple wounds (#of: 3) multiply by 5 to get score 15 [x] Wound Dressings Small Wound Dressing - one or multiple wounds (# of: ) multiply by 10 to get score [] Medium Wound Dressing - one or multiple wounds (# of: 3 ) multiply by 15 to get score 15 [x] Large Wound Dressing - one or multiple wounds (# of: ) multiply by 20 to get score [] Application of Medications - topical 5 [x] Application of Medication - injection 10 [] Miscellaneous External Ear Exam Specimen Collection (culture, biopsies, blood, body fluids, etc) 5 [] Specimen/Culture sent or taken to lab for analysis 5 [] Patient Transfer (multiple staff/Tito lift) 10 [] Simple Staple/Suture Removal (25 or less) 5 [] Complex Staple/Suture Removal (26 or more) 10 [] Hypo/Hyperglycemic Management 10 [] Ankle/Brachial Index (ROSMERY) 15 [] Vital Signs 5 [x] Total Points - Use to Determine Level of Clinic Visit 130 Points Barriga: Level 1 (1-35 Points) Level 2 (40-75 Points) Level 3 (80-115 Points) Level 4 (120-155 Points) Level 5 (160 or more Points) Normal [facility] CBC W/Diff, Automatedon 10-30 Anisocytosis Ql (Bld) 2+ Normal [facility] Comment on above: Order Comment: 205 Performed By: #### L [id number], L500.4050, L501.5200, L100.0100 ####[facility] [address] [place], [place], [id number] POLYCHROMASIA RARE [facility] Comment on above: Order Comment: 205 Performed By: #### L [id number], [id number], [id number], L100.0100 ####[facility] [address] [place], [address] SMEAR COMMENT SCANNED [facility] Comment on above: Order Comment: 205 Performed By: #### L [id number], [id number], L501.5200, L100.0100 ####[facility] [address] [place], [address] CRPon 11-20-2024 C-REACTIVE PROT 190.00 mg/L High 0.0-3.0 [facility] Comment on above: Order Comment: 205 Performed By: #### L [id number], [id number], L501.5200, L100.0100 ####[facility] [address] [place], [address] Comprehensive Metabolic Prof ilon 11-20-2024 Albumin [Mass/Vol] 2.9 g/dL Low 3.4-4.8 [facility] Comment on above: Order Comment: 205 Performed By: #### L [id number], [id number], L501.5200, L100.0100 ####[facility] [address] [place], [address] Albumin/Globulin [Mass ratio] 0.7 {ratio} Low 0.9-2.4 [facility] Comment on above: Order Comment: 205 Performed By: #### L [id number], [id number], L501.5200, L100.0100 ####[facility] [address] [place], [address] ALK PHOS 159 U/L High 35-104 [facility] Comment on above: Order Comment: 205 Performed By: #### L [id number], [id number], [id number], L100.0100 ####[facility] [address] [place], [address] ALT [Catalytic activity/Vol] 13 U/L Normal <=34 [facility] Comment on above: Order Comment: 205 Performed By: #### L [id number], [id number], L501.5200, L100.0100 ####[facility] [address] [place], [address] AST [Catalytic activity/Vol] 26 U/L Normal <=31 [facility] Comment on above: Order Comment: 205 Performed By: #### L [id number], [id number], L501.5200, L100.0100 ####[facility] [address] [place], [address] Bilirubin [Mass/Vol] 0.34 mg/dL Normal 0.00-1.30 [facility] Comment on above: Order Comment: 205 Performed By: #### L [id number], [id number], L501.5200, L100.0100 ####[facility] [address] [place], [address] BUN/CRE 21.3 RATIO High 10-20 [facility] Comment on above: Order Comment: 205 Performed By: #### L [id number], [id number], [id number], L100.0100 ####[facility] [address] [place], [address] Calcium [Mass/Vol] 9.1 mg/dL Normal 7.6-11.0 [facility] Comment on above: Order Comment: 205 Performed By: #### L [id number], [id number], [id number], L100.0100 ####[facility] [address] [place], [address] Chloride [Moles/Vol] 97 mmol/L Low 98-108 [facility] Comment on above: Order Comment: 205 Performed By: #### L [id number], [id number], [id number], L100.0100 ####[facility] [address] [place], [address] CO2 [Moles/Vol] 27.2 mmol/L Normal 21.0-32.0 [facility] Comment on above: Order Comment: 205 Performed By: #### L [id number], [id number], [id number], L100.0100 ####[facility] [address] [place], [address] Creatinine [Mass/Vol] 0.42 mg/dL Low 0.70-1.20 [facility] Comment on above: Order Comment: 205 Performed By: #### L [id number], [id number], [id number], L100.0100 ####[facility] [address] [place], [address] GAP 12 Normal 5-15 [facility] Comment on above: Order Comment: 205 Performed By: #### L [id number], [id number], [id number], L100.0100 ####[facility] [address] [place], [address] GFR/1.73 sq M.predicted among non-blacks MDRD (S/P/Bld) [Vol rate/Area] 106 mL/min/{1.73_m2} Normal >60 [facility] Comment on above: Order Comment: 205 Result Comment: mL/m in/1.73m2 CKD-EPI Creatinine Equation (2020) Performed By: #### L [id number], [id number], [id number], L100.0100 ####[facility] [address] [place], [address] Globulin (S) [Mass/Vol] 4.0 g/dL Normal 2.2-4.2 [facility] Comment on above: Order Comment: 205 Performed By: #### L [id number], [id number], L501.5200, L100.0100 ####[facility] [address] [place], [address] Glucose [Mass/Vol] 107 mg/dL High 70-99 [facility] Comment on above: Order Comment: 205 Performed By: #### L [id number], [id number], [id number], L100.0100 ####[facility] [address] [place], [address] Potassium [Moles/Vol] 3.8 mmol/L Normal 3.3-5.1 [facility] Comment on above: Order Comment: 205 Performed By: #### L [id number], [id number], [id number], L100.0100 ####[facility] [address] [place], [address] Sodium [Moles/Vol] 136 mmol/L Normal 133-145 [facility] Comment on above: Order Comment: 205 Performed By: #### L [id number], [id number], [id number], L100.0100 ####[facility] [address] [place], [address] T PROT 6.9 g/dL Normal 5.9-8.4 [facility] Comment on above: Order Comment: 205 Performed By: #### L [id number], [id number], [id number], L100.0100 ####[facility] [address] [place], [address] Urea nitrogen [Mass/Vol] 9 mg/dL Normal 4-19 [facility] Comment on above: Order Comment: 205 Performed By: #### L [id number], [id number], [id number], L100.0100 ####[facility] [facility] [address] [place], [address] Magnesiumon 11-20-2024 Magnesium [Mass/Vol] 2.0 mg/dL Normal 1.5-2.2 [facility] Comment on above: Order Comment: 205 Performed By: #### L 501.6710, L500.4050, L501.5200, L100.0100 ####[facility] [address] [place], [address] CRPon 11-14-2024 C-REACTIVE PROT 61.90 mg/L High 0.0-3.0 [facility] Comment on above: Order Comment: TSH A DDED TO 11/13 LABS Performed By: #### L 501.6710, L501.5200, L500.4050, L501.9520, L100.0100, L501.9985 ####[facility] [address] [place], [place], [id number] Comprehensive Metabolic Prof ilon 11-14-2024 Bilirubin [Mass/Vol] 0.19 mg/dL Normal 0.00-1.30 [facility] Comment on above: Order Comment: TSH A DDED TO 11/13 LABS Performed By: #### L 501.6710, L501.5200, L500.4050, L501.9520, L100.0100, L501.9985 ####[facility] [address] [place], [address] Hemoglobin A1con 11-14-2024 HbA1c (Bld) [Mass fraction] 6.1 % High <=5.6 [facility] Comment on above: Order Comment: A1C A DDED TO 11/13 LABS Result Comment: Norm al < 5.7 % Prediabetic 5.7 - 6.4 % Diabetic >or= 6.5 % Please note range changes. Performed By: #### L 501.6710, L501.5200, L500.4050, L501.9520, L100.0100, L501.9985 ####[facility] [address] [place], [place], [id number] Thyroid Stim Hormone (TSH)on 11-14-2024 TSH 1.820 uIU/mL Normal 0.300-4.200 [facility] Comment on above: Order Comment: TSH A DDED TO 11/13 LABS Performed By: #### L 501.6710, L501.5200, L500.4050, L501.9520, L100.0100, L501.9985 ####[facility] [address] [place], [place], [id number] CBC W/Diff, Automatedon 10-29 Anisocytosis Ql (Bld) 2+ Normal [facility] Comment on above: Order Comment: 205.1 Performed By: #### L 501.6710, L501.5200, L500.4050, L501.9520, L100.0100, L501.9985 ####[facility] [address] [place], [address] Magnesiumon 11-13-2024 Magnesium [Mass/Vol] 2.1 mg/dL Normal 1.5-2.2 [facility] Comment on above: Order Comment: 205.1 Performed By: #### L 501.6710, L501.5200, L500.4050, L501.9520, L100.0100, L501.9985 ####[facility] [address] [place], [address] CBC-Complete Blood Cnt No Di ffon 11-10-2024 HCT Normal 37-47 [facility] Comment on above: Order Comment: 205 Result Comment: QNS Performed By: #### L 500.4050, L100.0500 ####[facility] [address] [place], [address] HGB Normal 12.0-15.0 [facility] Comment on above: Order Comment: 205 Result Comment: QNS Performed By: #### L 500.4050, L100.0500 ####[facility] [address] [place], [address] MCH Normal 27.0-32.0 [facility] Comment on above: Order Comment: 205 Result Comment: QNS Performed By: #### L 500.4050, L100.0500 ####[facility] [address] [place], [address] MCHC Normal 32-36 [facility] Comment on above: Order Comment: 205 Result Comment: QNS Performed By: #### L 500.4050, L100.0500 ####[facility] [address] [place], [address] MCV Normal 81-99 [facility] Comment on above: Order Comment: 205 Result Comment: QNS Performed By: #### L 500.4050, L100.0500 ####[facility] [address] [place], [address] PLT Normal 150-450 [facility] Comment on above: Order Comment: 205 Result Comment: QNS Performed By: #### L 500.4050, L100.0500 ####[facility] [address] [place], [address] RBC Normal 4.2-5.4 [facility] Comment on above: Order Comment: 205 Result Comment: QNS Performed By: #### L 500.4050, L100.0500 ####[facility] [address] [place], [address] RDW CV Normal 11.6-14.6 [facility] Comment on above: Order Comment: Result Comment: QNS Performed By: #### L 500.4050, L100.0500 ####[facility] [address] [place], [address] RDW SD Normal 35.1-43.9 [facility] Comment on above: Order Comment: Result Comment: QNS Performed By: #### L 500.4050, L100.0500 ####[facility] [address] [place], [address] WBC Normal 4.4-11.0 [facility] Comment on above: Order Comment: 205 Result Comment: QNS Performed By: #### L 500.4050, L100.0500 ####[facility] [address] [place], [address] Comprehensive Metabolic Prof ilon 11-10-2024 ALB Normal 3.4-4.8 [facility] Comment on above: Order Comment: 205 Result Comment: QNS Performed By: #### L 500.4050, L100.0500 ####[facility] [address] [place], [address] ALK PHOS Normal 35-104 [facility] Comment on above: Order Comment: 205 Result Comment: QNS Performed By: #### L 500.4050, L100.0500 ####[facility] [address] [place], [address] ALT Normal <=34 [facility] Comment on above: Order Comment: 205 Result Comment: QNS Performed By: #### L 500.4050, L100.0500 ####[facility] [address] [place], [address] AST Normal <=31 [facility] Comment on above: Order Comment: 205 Result Comment: QNS Performed By: #### L 500.4050, L100.0500 ####[facility] [address] [place], [address] BUN Normal 4-19 [facility] Comment on above: Order Comment: 205 Result Comment: QNS Performed By: #### L 500.4050, L100.0500 ####[facility] [address] [place], [address] BUN/CRE Normal 10-20 [facility] Comment on above: Order Comment: 205 Result Comment: QNS Performed By: #### L 500.4050, L100.0500 ####[facility] [address] [place], [address] Calcium Normal 7.6-11.0 [facility] Comment on above: Order Comment: 205 Result Comment: QNS Performed By: #### L 500.4050, L100.0500 ####[facility] [address] [place], [address] CL Normal 98-108 [facility] Comment on above: Order Comment: 205 Result Comment: QNS Performed By: #### L 500.4050, L100.0500 ####[facility] [address] [place], [address] CO2 Normal 21.0-32.0 [facility] Comment on above: Order Comment: 205 Result Comment: QNS Performed By: #### L 500.4050, L100.0500 ####[facility] [address] [place], [address] CREAT,SERUM Normal 0.70-1.20 [facility] Comment on above: Order Comment: 205 Result Comment: QNS Performed By: #### L 500.4050, L100.0500 ####[facility] [address] [place], [address] eGFR Normal >60 [facility] Comment on above: Order Comment: Result Comment: QNS Performed By: #### L 500.4050, L100.0500 ####[facility] [address] [place], [address] GAP Normal 5-15 [facility] Comment on above: Order Comment: Result Comment: QNS Performed By: #### L 500.4050, L100.0500 ####[facility] [address] [place], [address] GLU Normal 70-99 [facility] Comment on above: Order Comment: Result Comment: QNS Performed By: #### L 500.4050, L100.0500 ####[facility] [address] [place], [address] Potassium Normal 3.3-5.1 [facility] Comment on above: Order Comment: Result Comment: QNS Performed By: #### L 500.4050, L100.0500 ####[facility] [address] [place], [address] T BILI Normal 0.00-1.30 [facility] Comment on above: Order Comment: Result Comment: QNS Performed By: #### L 500.4050, L100.0500 ####[facility] [address] [place], [address] T PROT Normal 5.9-8.4 [facility] Comment on above: Order Comment: Result Comment: QNS Performed By: #### L 500.4050, L100.0500 ####[facility] [address] [place], [address] Comprehensive Metabolic Profil Normal 133-145 [facility] Comment on above: Order Comment: Result Comment: QNS Performed By: #### L 500.4050, L100.0500 ####[facility] [address] [place], [address] 30on 11-09-2024 30 Problem: Chronic Conditions and Co-morbidities Goal: Patient's chronic conditions and co-morbidity symptoms are monitored and maintained or improved Outcome: Not Progressing Problem: Problem Interventions Goal: Assess Nutritional Intake Outcome: Adequate for Discharge Problem: Pain - Adult Goal: Verbalizes/displays adequate comfort level or baseline comfort level Outcome: Adequate for Discharge Problem: Safety - Adult Goal: Free from fall injury Outcome: Adequate for Discharge Problem: Discharge Planning Goal: Discharge to home or other facility with appropriate resources Outcome: Adequate for Discharge Problem: Knowledge Deficit Goal: Patient/family/caregiver demonstrates understanding of disease process, treatment plan, medications, and discharge instructions Outcome: Adequate for Discharge Problem: Potential for Falls Goal: I will remain free of falls Outcome: Adequate for Discharge Problem: Discharge Barriers Goal: My discharge needs are met Outcome: Adequate for Discharge Normal [facility] [id number] 11-09-2024 [id number] [facility] Palliative Care Transitions of Care Note Yoko Emanuel : 1955 ADMIT DATE: 10/31/2024 DISCHARGE DATE: 11/09/24 PRIMARY CARE PHYSICIAN: No primary care provider on file. CODE STATUS: DNR-CC DISCHARGE DIAGNOSES: Principal Problem: PICC line infection, initial encounter N/A, pt dc back to SNF. External referral for contracted palliative care team to follow her there. SIGNED: Venus Lan APRN - SECURITY SERGEANT 11/01/2024, 2:18 PM [facility] [phone] Next Site of Care Admission Date: 10/31/2024 10:23 AM Patient Name: YOKO EMANUEL Location: [place] [address] [address] [id number] Date of : 1955 ----- Placement Information ----- Referral Type:[facility] - Return Referral ID:[id number] Provider Name:Tercica/Canary Calendar Address 1:[address] 2: City:[place] Selection Factors:Patient/Family Choice State:[facility] [phone] Confirmed pickup yinka e of 4:30pm on 11/09/24 by Alma Johns at phone number [phone]. Location of facility drop off is [facility]. Facility notified via [employer], TCC notified on secure chat. [facility] [phone] Pt to be discharged (returned) to [facility] today. Mykel completed. Tcc updated facility this am that pt would be returning today. Tcc tasked [facility] to schedule ambulance transport at 4:30 p.m. Await verification of transport and will make bedside RN, community case manager, pt and facility aware of time. Tcc will also ask family life counselor to send discharge documents to facility. [facility] [phone] Updated notes sent t o [facility] via [facility] per TCC request. Await review and response regarding ability to accept. TCC notified. Normal [facility] BASIC METABOLIC PANELon 06- Anion gap [Moles/Vol] 3 mmol/L Normal 3-13 [facility] Comment on above: Performed By: #### L AB40 #### Hoistman: RELL AMAYA ([id number]) [facility]) [address] [place] [address] Calcium [Mass/Vol] 8.1 mg/dL Low 8.8-10.0 [facility] Comment on above: Performed By: #### L AB40 #### Hoistman: RELL AMAYA ([phone]) [facility] ([facility]) [address] [place] [address] [place] Chloride [Moles/Vol] 103 mmol/L Normal 98-107 [facility] Comment on above: Performed By: #### L AB40 #### Hoistman: RELL AMAYA ([id number]) [facility] ([facility]) [address] [place] [address] [place] CO2 [Moles/Vol] 31 mmol/L Normal 23-31 [facility] Comment on above: Performed By: #### L AB40 #### Hoistman: RELL AMAYA ([id number]) [facility] [address] [place] [address] [place] Creatinine [Mass/Vol] 0.45 mg/dL Low 0.57-1.11 [facility] Comment on above: Performed By: #### L AB40 #### Hoistman: RELL AMAYA ([phone]) [facility] [address] [place] [address] [place] GLOMERULAR FILTRATION RATE ML/MIN/1.73 SQ M.PREDICTED >90.0 Normal >60.0 [facility] Comment on above: Result Comment: Calc ulation based on the Chronic Kidney Disease Epidemiology Collaboration (CKD-EPI) equation refit without adjustment for race Performed By: #### L AB40 #### Hoistman: RELL AMAYA ([id number]) [facility] [address] [place] [address] [place] Glucose [Mass/Vol] 82 mg/dL Normal 82-115 [facility] Comment on above: Performed By: #### L AB40 #### Hoistman: RELL AMAYA ([phone]) [facility] [address] [place] [address] [place] Potassium [Moles/Vol] 3.9 mmol/L Normal 3.5-5.1 [facility] Comment on above: Result Comment: [facility] potassium values may be up to 0.5 mmol/L lower than serum values. Performed By: #### L AB40 #### Hoistman: RELL AMAYA ([id number]) [facility] [address] [place] [address] [place] Sodium [Moles/Vol] 137 mmol/L Normal 136-145 [facility] Comment on above: Performed By: #### L AB40 #### Hoistman: RELL AMAYA ([id number]) [facility] [address] [place] [address] [place] Urea nitrogen [Mass/Vol] 3 mg/dL Low 9-23 [facility] Comment on above: Performed By: #### L AB40 #### Hoistman: RELL AMAYA ([id number]) [facility]) [address] [place] [address] Basic metabolic 1998 panelon 11-09-2024 Anion gap [Moles/Vol] 3 mmol/L 3 - 13 mmol/L [facility] Calcium [Mass/Vol] 8.1 mg/dL Low 8.8 - 10. 0 mg/dL [facility] Chloride [Moles/Vol] 103 mmol/L 98 - 10 7 mmol/L [facility] CO2 [Moles/Vol] 31 mmol/L 23 - 31 mmol/L [facility] Creatinine [Mass/Vol] 0.45 mg/dL Low 0.57 - 1.11 mg/dL [facility] GFR/1.73 sq M.predicted (S/P/Bld) [Vol rate/Area] - PINF [facility] Glucose [Mass/Vol] 82 mg/dL 82 - 115 mg/dL [facility] Interpretation and review of laboratory results Abnormal [facility] Potassium [Moles/Vol] 3.9 mmol/L 3.5 - 5.1 mmol/L [facility] Sodium [Moles/Vol] 137 mmol/L 136 - 145 mmol/L [facility] Urea nitrogen [Mass/Vol] 3 mg/dL Low 9 - 23 mg/dL [facility] CBC W Auto Differential pane l (Bld)on 11-09-2024 Erythrocyte distribution width (RBC) [Ratio] 20.8 % High 11.5 - 15.0 % [facility] Hematocrit (Bld) [Volume fraction] 35.4 % 35.0 - 47.0 % [facility] Hemoglobin (Bld) [Mass/Vol] 10.7 g/dL Low 11.7 - 16.0 g/dL [facility] Interpretation and review of laboratory results Abnormal [facility] MCH (RBC) [Entitic mass] 23.6 pg Low 26.0 - 34.0 pg [facility] MCHC (RBC) [Mass/Vol] 30.2 % Low 30.5 - 36.0 % [facility] MCV (RBC) [Entitic vol] 78.1 fL 77.0 - 99.0 fL [facility] Platelet mean volume (Bld) [Entitic vol] 9.9 fL 9.0 - 12.7 fL [facility] Platelets (Bld) [#/Vol] 378 10*3/uL 140 - 440 10*3/uL [facility] RBC (Bld) [#/Vol] 4.53 10*6/uL 3.80 - 5.2 0 10*6/uL [facility] WBC (Bld) [#/Vol] 6.3 10*3/uL 3.6 - 10.7 10*3/uL [facility] CBC WITH AUTO DIFFERENTIALon 11-09-2024 Erythrocyte distribution width (RBC) [Ratio] 20.8 % High 11.5-15.0 [facility] Comment on above: Performed By: #### L AB40 #### Hoistman: RELL AMAYA ([id number]) [facility]) [address] [place] [address] Hematocrit (Bld) [Volume fraction] 35.4 % Normal 35.0-47.0 [facility] Comment on above: Performed By: #### L AB40 #### Hoistman: RELL AMAYA ([id number]) [facility]) [address] [place] [address] Hemoglobin (Bld) [Mass/Vol] 10.7 g/dL Low 11.7-16.0 [facility] Comment on above: Performed By: #### L AB40 #### Hoistman: RELL AMAYA ([id number]) [facility]) [address] [place] [address] MCH (RBC) [Entitic mass] 23.6 pg Low 26.0-34.0 [facility] Comment on above: Performed By: #### L AB40 #### Hoistman: RELL AMAYA ([id number]) [facility]) [address] [place] [address] MCHC 30.2 % Low 30.5-36.0 [facility] Comment on above: Performed By: #### L AB40 #### Hoistman: RELL AMAYA ([id number]) [facility] ([facility]) [address] [place] [address] MCV (RBC) [Entitic vol] 78.1 fL Normal 77.0-99.0 [facility] Comment on above: Performed By: #### L AB40 #### Hoistman: RELL AMAYA ([id number]) [facility] ([facility]) [address] [place] [address] Platelet mean volume (Bld) [Entitic vol] 9.9 fL Normal 9.0-12.7 [facility] Comment on above: Performed By: #### L AB40 #### Hoistman: RELL AMAYA ([id number]) [facility] ([facility]) [address] [place] [address] Platelets (Bld) [#/Vol] 378 10*3/uL Normal 140-440 [facility] Comment on above: Performed By: #### L AB40 #### Hoistman: RELL AMAYA ([id number]) [facility]) [address] [place] [address] RBC (Bld) [#/Vol] 4.53 10*6/uL Normal 3.80-5.20 [facility] Comment on above: Performed By: #### L AB40 #### Hoistman: RELL AMAYA ([id number]) [facility] ([facility]) [address] [place] [address] WBC (Bld) [#/Vol] 6.3 10*3/uL Normal 3.6-10.7 [facility] Comment on above: Performed By: #### L AB40 #### Hoistman: RELL AMAYA ([id number]) [facility] ([facility]) [address] [place] [address] Laboratory - Chemistry and C hemistry - challengeon 11-09-2024 Glucose [Mass/Vol] 84 mg/dL 70 - 100 mg/dL [facility] Glucose [Mass/Vol] 106 mg/dL High 70 - 100 mg/dL [facility] Glucose [Mass/Vol] 88 mg/dL 70 - 100 mg/dL [facility] Laboratory - Hematology and Cell countson 11-09-2024 Anisocytosis Ql (Bld) Slight Abnormal (none) [facility] Basophils (Bld) [#/Vol] 0.3 10*3/uL High 0.0 - 0.2 10*3/uL [facility] Basophils/100 WBC (Bld) 4 % High 0 - 2 % [facility] Elliptocytes LM Ql (Bld) Slight Abnormal (none) [facility] Eosinophils (Bld) [#/Vol] 0.3 10*3/uL 0.0 - 0.5 10*3/uL [facility] Eosinophils/100 WBC (Bld) 5 % 0 - 6 % [facility] Lymphocytes (Bld) [#/Vol] 0.6 10*3/uL Low 1.0 - 4.3 10*3/uL [facility] Lymphocytes/100 WBC (Bld) 10 % Low 15 - 45 % [facility] Microcytes Ql (Bld) Slight Abnormal (none) [facility] Monocytes (Bld) [#/Vol] 0.3 10*3/uL 0.0 - 0.9 10*3/uL [facility] Monocytes/100 WBC (Bld) 5 % 5 - 13 % [facility] Neutrophils (Bld) [#/Vol] 4.8 10*3/uL 1.8 - 7.5 10*3/uL [facility] Ovalocytes LM Ql (Bld) Slight Abnormal (none) [facility] Poikilocytosis LM Ql (Bld) Slight Abnormal (none) [facility] Polychromasia LM Ql (Bld) Slight Abnormal (none) [facility] RBC morphology finding Nom (Bld) abnormal [facility] Segmented neutrophils/100 WBC (Bld) 76 % 38 - 82 % [facility] MANUAL DIFFERENTIAL (CELLAVI VITA)on 11-09-2024 ANISOCYTOSIS PRESENCE IN BLOOD BY LIGHT MICROSCOPY Slight Abnormal (none) [facility] Comment on above: Performed By: #### L AB40 #### Hoistman: RELL AMAYA ([id number]) [facility] ([facility]) [address] [place] [address] BAND NEUTROPHILS TOTAL PER COUNTED LEUKOCYTES BY MANUAL COUNT Normal [facility] Comment on above: Performed By: #### L AB40 #### Hoistman: RELL AMAYA ([id number]) [facility] ([facility]) [address] [place] [address] [place] BASOPHILS (10*3/UL) IN BLOOD-CELLAVISION 0.3 10*3/uL High 0.0-0.2 [facility] Comment on above: Performed By: #### L AB40 #### Hoistman: RELL AMAYA ([id number]) [facility] [address] [place] [address] [place] BASOPHILS TOTAL PER COUNTED LEUKOCYTES BY MANUAL COUNT 4 Normal [facility] Comment on above: Performed By: #### L AB40 #### Hoistman: RELL AMAYA ([id number]) [facility] ([facility]) [address] [place] [address] [place] BASOPHILS/100 LEUKOCYTES IN BLOOD-CELLAVISION 4 % High 0-2 [facility] Comment on above: Performed By: #### L AB40 #### Hoistman: RELL AMAYA ([id number]) [facility] ([facility]) [address] [place] [address] [place] BLASTS TOTAL PER COUNTED LEUKOCYTES BY MANUAL COUNT Normal [facility] Comment on above: Performed By: #### L AB40 #### Hoistman: RELL AMAYA ([id number]) [facility] ([facility]) [address] [place] [address] [place] ELLIPTOCYTES IN BLOOD BY LIGHT MICROSCOPY Slight Abnormal (none) [facility] Comment on above: Performed By: #### L AB40 #### Hoistman: RELL AMAYA ([id number]) [facility] ([facility]) [address] [place] [address] [place] EOSINOPHILS (10*3/UL) IN BLOOD-CELLAVISION 0.3 10*3/uL Normal 0.0-0.5 [facility] Comment on above: Performed By: #### L AB40 #### Hoistman: RELL AMAYA ([id number]) [facility] ([facility]) [address] [place] [address] [place] EOSINOPHILS TOTAL PER COUNTED LEUKOCYTES BY MANUAL COUNT 5 High 0-1 [facility] Comment on above: Performed By: #### L AB40 #### Hoistman: RELL AMAYA ([id number]) [facility] [facility] [address] [place] [address] [place] EOSINOPHILS/100 LEUKOCYTES IN BLOOD-CELLAVISION 5 % Normal 0-6 [facility] Comment on above: Performed By: #### L [id number] #### Hoistman: RELL AMAYA ([phone]) [facility] ([facility]) [address] [place] [address] [place] LYMPHOCYTES (10*3/UL) IN BLOOD-CELLAVISION 0.6 10*3/uL Low 1.0-4.3 [facility] Comment on above: Performed By: #### L [id number] #### Hoistman: RELL AMAYA ([phone]) [facility] ([facility]) [address] [place] [address] LYMPHOCYTES TOTAL PER COUNTED LEUKOCYTES BY MANUAL COUNT 10 Normal [facility] Comment on above: Performed By: #### L [id number] #### Hoistman: RELL AMAYA ([phone]) [facility] ([facility]) [address] [place] [address] LYMPHOCYTES/100 LEUKOCYTES IN BLOOD-CELLAVISION 10 % Low 15-45 [facility] Comment on above: Performed By: #### L [id number] #### Hoistman: RELL AMAYA ([phone]) [facility] ([facility]) [address] [place] [address] METAMYELOCYTES TOTAL PER COUNTED LEUKOCYTES BY MANUAL COUNT Normal [facility] Comment on above: Performed By: #### L [id number] #### Hoistman: RELL AMAYA ([phone]) [facility] ([facility]) [address] [place] [address] [place] MICROCYTES (PRESENCE) IN BLOOD BY LIGHT MICROSCOPY Slight Abnormal (none) [facility] Comment on above: Performed By: #### L [id number] #### Hoistman: RELL AMAYA ([phone]) [facility] ([facility]) [address] [place] [address] [place] MONOCYTES (10*3/UL) IN BLOOD-CELLAVISION 0.3 10*3/uL Normal 0.0-0.9 [facility] Comment on above: Performed By: #### L [id number] #### Hoistman: RELL AMAYA ([phone]) [facility] [address] [place] [address] [place] MONOCYTES TOTAL PER COUNTED LEUKOCYTES BY MANUAL COUNT 5 Normal [facility] Comment on above: Performed By: #### L AB40 #### Hoistman: RELL AMAYA ([phone]) [facility] [address] [place] [address] [place] MONOCYTES/100 LEUKOCYTES IN BLOOD-KAYDEN 5 % Normal 5-13 [facility] Comment on above: Performed By: #### L [id number] #### Hoistman: RELL AMAYA ([phone]) [facility] ([facility]) [address] [place] [address] MYELOCYTES COUNTED BY MANUAL COUNT Normal [facility] Comment on above: Performed By: #### L [id number] #### Hoistman: RELL AMAYA ([phone]) [facility] [address] [place] [address] [place] NEUTROPHILS TOTAL PER COUNTED LEUKOCYTES BY MANUAL COUNT 77 Normal [facility] Comment on above: Performed By: #### L [id number] #### Hoistman: RELL AMAYA ([phone]) [facility] ([facility]) [address] [place] [address] [place] OVALOCYTES PRESENCE IN BLOOD BY LIGHT MICROSCOPY Slight Abnormal (none) [facility] Comment on above: Performed By: #### L AB40 #### Hoistman: RELL AMAYA ([phone]) [facility] [address] [place] [address] [place] POIKILOCYTOSIS (PRESENCE) IN BLOOD BY LIGHT MICROSCOPY Slight Abnormal (none) [facility] Comment on above: Performed By: #### L [id number] #### Hoistman: RELL AMAYA ([phone]) [facility] [address] [place] [address] [place] POLYCHROMASIA IN BLOOD BY LIGHT MICROSCOPY Slight Abnormal (none) [facility] Comment on above: Performed By: #### L AB40 #### Hoistman: RELL AMAYA ([phone]) [facility] ([facility]) [address] [place] [address] PROMYELOCYTES TOTAL PER COUNTED LEUKOCYTES BY MANUAL COUNT Normal [facility] Comment on above: Performed By: #### L AB40 #### Hoistman: RELL AMAYA ([phone]) [facility] [address] [place] [address] RBC MORPHOLOGY IN BLOOD abnormal Normal [facility] Comment on above: Performed By: #### L [id number] #### Hoistman: RELL AMAYA ([phone]) [facility]) [address] [place] [address] SEGMENTED NEUTROPHILS (10*3/UL) IN BLOOD-CELLAVISION 4.8 10*3/uL Normal 1.8-7.5 [facility] Comment on above: Performed By: #### L [id number] #### Hoistman: RELL AMAYA ([phone]) [facility]) [address] [place] [address] SEGMENTED NEUTROPHILS/100 LEUKOCYTES-CE 76 % Normal 38-82 [facility] Comment on above: Performed By: #### L [id number] #### Hoistman: RELL AMAYA ([phone]) [facility]) [address] [place] [address] UNCLASSIFIED CELLS TOTAL PER COUNTED LEUKOCYTES BY MANUAL COUNT Normal [facility] Comment on above: Performed By: #### L AB40 #### Hoistman: RELL AMAYA ([id number]) [facility]) [address] [place] [address] VARIANT LYMPHOCYTES TOTAL PER COUNTED LEUKOCYTES BY MANUAL COUNT Normal [facility] Comment on above: Performed By: #### L AB40 #### Hoistman: RELL AMAYA ([phone]) [facility] [address] [place] [address] No Panel Informationon 11-09 Interpretation and review of laboratory results Normal [facility] Interpretation and review of laboratory results Abnormal [facility] Interpretation and review of laboratory results Normal [facility] Basophils Manual 4 [facility] Eosinophils Manual 5 High 0 - 1 [facility] Interpretation and review of laboratory results Abnormal [facility] Lymphocytes Manual 10 [facility] Monocytes Manual 5 [facility] Neutrophils Manual 77 [facility] Nursing Noteon 11-09-2024 Nursing Note Patient leaving via EMS to [facility] on cot, Normal [facility] Nursing Note Tt Sarah @ [facility] regarding report. Advised corn picker time is 4:30. She was updated on patient care at [facility]. She has cared for Ms. Emanuel previously so is well versed in her care. Updates given and Sarah had no further questions. Removed IV's, dressing changes done and patient is ready for transport. Normal [facility] 30on 11-08-2024 30 Problem: Problem Interventions Goal: Assess Nutritional Intake Outcome: Progressing Problem: Pain - Adult Goal: Verbalizes/displays adequate comfort level or baseline comfort level Outcome: Progressing Problem: Safety - Adult Goal: Free from fall injury Outcome: Progressing Normal [facility] 30 Problem: Problem Interventions Goal: Assess Nutritional Intake Outcome: Progressing Problem: Pain - Adult Goal: Verbalizes/displays adequate comfort level or baseline comfort level Outcome: Progressing Problem: Safety - Adult Goal: Free from fall injury Outcome: Progressing Problem: Discharge Planning Goal: Discharge to home or other facility with appropriate resources Outcome: Progressing Problem: Chronic Conditions and Co-morbidities Goal: Patient's chronic conditions and co-morbidity symptoms are monitored and maintained or improved Outcome: Progressing Normal [facility] BASIC METABOLIC PANELon 10-29 Anion gap [Moles/Vol] 6 mmol/L Normal 3-13 [facility] Comment on above: Performed By: #### L AB40 #### Hoistman: RELL AMAYA ([phone]) [facility] ([facility]) [address] [place] [address] Calcium [Mass/Vol] 7.7 mg/dL Low 8.8-10.0 [facility] Comment on above: Performed By: #### L AB40 #### Hoistman: RELL AMAYA ([phone]) [facility] ([facility]) [address] [place] [address] Chloride [Moles/Vol] 107 mmol/L Normal 98-107 [facility] Comment on above: Performed By: #### L AB40 #### Hoistman: RELL AMAYA ([phone]) [facility] [address] [place] [address] CO2 [Moles/Vol] 26 mmol/L Normal 23-31 [facility] Comment on above: Performed By: #### L AB40 #### Hoistman: RELL AMAYA ([phone]) [facility] [address] [place] [address] Creatinine [Mass/Vol] 0.49 mg/dL Low 0.57-1.11 [facility] Comment on above: Performed By: #### L AB40 #### Hoistman: RELL AMAYA ([id number]) [facility] ([facility]) [address] [place] [address] GLOMERULAR FILTRATION RATE ML/MIN/1.73 SQ M.PREDICTED >90.0 Normal >60.0 [facility] Comment on above: Result Comment: Calc ulation based on the Chronic Kidney Disease Epidemiology Collaboration (CKD-EPI) equation refit without adjustment for race Performed By: #### L AB40 #### Hoistman: RELL AMAYA ([phone]) [facility] [address] [place] [address] Glucose [Mass/Vol] 87 mg/dL Normal 82-115 [facility] Comment on above: Performed By: #### L AB40 #### Hoistman: RELL AMAYA ([phone]) [facility] [address] [place] [address] [place] Potassium [Moles/Vol] 3.6 mmol/L Normal 3.5-5.1 [facility] Comment on above: Result Comment: [facility] potassium values may be up to 0.5 mmol/L lower than serum values. Performed By: #### L AB40 #### Hoistman: RELL AMAYA ([phone]) [facility]) [address] Sodium [Moles/Vol] 139 mmol/L Normal 136-145 [facility] Comment on above: Performed By: #### L AB40 #### Hoistman: RELL AMAYA ([phone]) [facility] ([facility]) [address] [place] [address] Urea nitrogen [Mass/Vol] 3 mg/dL Low 9-23 [facility] Comment on above: Performed By: #### L AB40 #### Hoistman: RELL AMAYA ([id number]) [facility] ([facility]) [address] [place] [address] Basic metabolic 1998 panelon 11-08-2024 Anion gap [Moles/Vol] 6 mmol/L 3 - 13 mmol/L [facility] Calcium [Mass/Vol] 7.7 mg/dL Low 8.8 - 10. 0 mg/dL [facility] Chloride [Moles/Vol] 107 mmol/L 98 - 10 7 mmol/L [facility] CO2 [Moles/Vol] 26 mmol/L 23 - 31 mmol/L [facility] Creatinine [Mass/Vol] 0.49 mg/dL Low 0.57 - 1.11 mg/dL [facility] GFR/1.73 sq M.predicted (S/P/Bld) [Vol rate/Area] - PINF [facility] Glucose [Mass/Vol] 87 mg/dL 82 - 115 mg/dL [facility] Interpretation and review of laboratory results Abnormal [facility] Potassium [Moles/Vol] 3.6 mmol/L 3.5 - 5.1 mmol/L [facility] Sodium [Moles/Vol] 139 mmol/L 136 - 145 mmol/L [facility] Urea nitrogen [Mass/Vol] 3 mg/dL Low 9 - 23 mg/dL [facility] CBC W Auto Differential pane l (Bld)Ordered By: Adilene Burch on 11-08-2024 Erythrocyte distribution width (RBC) [Ratio] 20.5 % High 11.5 - 15.0 % [facility] Hematocrit (Bld) [Volume fraction] 35.1 % 35.0 - 47.0 % [facility] Hemoglobin (Bld) [Mass/Vol] 10.6 g/dL Low 11.7 - 16.0 g/dL [facility] Interpretation and review of laboratory results Abnormal [facility] MCH (RBC) [Entitic mass] 23.5 pg Low 26.0 - 34.0 pg [facility] MCHC (RBC) [Mass/Vol] 30.2 % Low 30.5 - 36.0 % [facility] MCV (RBC) [Entitic vol] 77.8 fL 77.0 - 99.0 fL [facility] Platelet mean volume (Bld) [Entitic vol] 10 fL 9.0 - 12.7 fL [facility] Platelets (Bld) [#/Vol] 403 10*3/uL 140 - 440 10*3/uL [facility] RBC (Bld) [#/Vol] 4.51 10*6/uL 3.80 - 5.2 0 10*6/uL [facility] WBC (Bld) [#/Vol] 4.8 10*3/uL 3.6 - 10.7 10*3/uL [facility] CBC WITH AUTO DIFFERENTIALon 11-08-2024 Erythrocyte distribution width (RBC) [Ratio] 20.5 % High 11.5-15.0 [facility] Comment on above: Performed By: #### L AB40 #### Hoistman: RELL AMAYA ([phone]) [address] Hematocrit (Bld) [Volume fraction] 35.1 % Normal 35.0-47.0 [facility] Comment on above: Performed By: #### L AB40 #### Hoistman: RELL AMAYA ([id number]) [facility] ([facility]) [address] [place] [address] Hemoglobin (Bld) [Mass/Vol] 10.6 g/dL Low 11.7-16.0 [facility] Comment on above: Performed By: #### L AB40 #### Hoistman: RELL AMAYA ([phone]) [facility]) [address] [place] [address] MCH (RBC) [Entitic mass] 23.5 pg Low 26.0-34.0 [facility] Comment on above: Performed By: #### L AB40 #### Hoistman: RELL AMAYA ([phone]) [facility] ([facility]) [address] [place] [address] MCHC 30.2 % Low 30.5-36.0 [facility] Comment on above: Performed By: #### L AB40 #### Hoistman: RELL AMAYA ([phone]) [facility] ([facility]) [address] [place] [address] MCV (RBC) [Entitic vol] 77.8 fL Normal 77.0-99.0 [facility] Comment on above: Performed By: #### L AB40 #### Hoistman: RELL AMAYA ([phone]) [facility]) [address] [place] [address] Platelet mean volume (Bld) [Entitic vol] 10.0 fL Normal 9.0-12.7 [facility] Comment on above: Performed By: #### L AB40 #### Hoistman: RELL AMAYA ([id number]) [facility] ([facility]) [address] [place] [address] Platelets (Bld) [#/Vol] 403 10*3/uL Normal 140-440 [facility] Comment on above: Performed By: #### L AB40 #### Hoistman: RELL AMAYA ([id number]) [facility]) [address] [place] [address] RBC (Bld) [#/Vol] 4.51 10*6/uL Normal 3.80-5.20 [facility] Comment on above: Performed By: #### L AB40 #### Hoistman: RELL AMAYA ([phone]) [facility] ([facility]) [address] [place] [address] [place] WBC (Bld) [#/Vol] 4.8 10*3/uL Normal 3.6-10.7 [facility] Comment on above: Performed By: #### L AB40 #### Hoistman: RELL AMAYA ([id number]) [facility] ([facility]) [address] [id number] [facility] Laboratory - Chemistry and C hemistry - challengeon 11-08-2024 Glucose [Mass/Vol] 114 mg/dL High 70 - 100 mg/dL [facility] Glucose [Mass/Vol] 105 mg/dL High 70 - 100 mg/dL [facility] Glucose [Mass/Vol] 108 mg/dL High 70 - 100 mg/dL [facility] Glucose [Mass/Vol] 101 mg/dL High 70 - 100 mg/dL [facility] - Hematology and Cell countson 11-08-2024 Anisocytosis Ql (Bld) Moderate Abnormal (none) [facility] Basophils (Bld) [#/Vol] 0 10*3/uL 0.0 - 0.2 10*3/uL [facility] Basophils/100 WBC (Bld) 1 % 0 - 2 % [facility] Dacrocytes LM Ql (Bld) Slight Abnormal (none) [facility] Elliptocytes LM Ql (Bld) Slight Abnormal (none) [facility] Eosinophils (Bld) [#/Vol] 0.6 10*3/uL High 0.0 - 0.5 10*3/uL [facility] Eosinophils/100 WBC (Bld) 12 % High 0 - 6 % [facility] Lymphocytes (Bld) [#/Vol] 0.4 10*3/uL Low 1.0 - 4.3 10*3/uL [facility] Lymphocytes/100 WBC (Bld) 8 % Low 15 - 45 % [facility] Microcytes Ql (Bld) Moderate Abnormal (none) [facility] Monocytes (Bld) [#/Vol] 0.2 10*3/uL 0.0 - 0.9 10*3/uL [facility] Monocytes/100 WBC (Bld) 4 % Low 5 - 13 % [facility] Neutrophils (Bld) [#/Vol] 3.6 10*3/uL 1.8 - 7.5 10*3/uL [facility] Ovalocytes LM Ql (Bld) Moderate Abnormal (none) [facility] Poikilocytosis LM Ql (Bld) Moderate Abnormal (none) [facility] Polychromasia LM Ql (Bld) Slight Abnormal (none) [facility] RBC morphology finding Nom (Bld) abnormal [facility] Segmented neutrophils/100 WBC (Bld) 75 % 38 - 82 % [facility] MANUAL DIFFERENTIAL (CELLAVI VITA)on 11-08-2024 ANISOCYTOSIS PRESENCE IN BLOOD BY LIGHT MICROSCOPY Moderate Abnormal (none) [facility] Comment on above: Performed By: #### L AB40 #### Hoistman: RELL AMAYA ([phone]) [facility] ([facility]) [address] [place] [address] BAND NEUTROPHILS TOTAL PER COUNTED LEUKOCYTES BY MANUAL COUNT Normal [facility] Comment on above: Performed By: #### L AB40 #### Hoistman: RELL AMAYA ([phone]) [facility] ([facility]) [address] [place] [address] [place] BASOPHILS (10*3/UL) IN BLOOD-CELLAVISION 0.0 10*3/uL Normal 0.0-0.2 [facility] Comment on above: Performed By: #### L AB40 #### Hoistman: RELL AMAYA ([phone]) [facility] ([facility]) [address] [place] [address] [place] BASOPHILS TOTAL PER COUNTED LEUKOCYTES BY MANUAL COUNT 1 Normal [facility] Comment on above: Performed By: #### L AB40 #### Hoistman: RELL AMAYA ([phone]) [facility]) [address] [place] [address] [place] BASOPHILS/100 LEUKOCYTES IN BLOOD-CELLAVISION 1 % Normal 0-2 [facility] Comment on above: Performed By: #### L AB40 #### Hoistman: RELL AMAYA ([phone]) [facility] ([facility]) [address] [place] [address] [place] BLASTS TOTAL PER COUNTED LEUKOCYTES BY MANUAL COUNT Normal [facility] Comment on above: Performed By: #### L AB40 #### Hoistman: RELL AMAYA ([phone]) [facility] ([facility]) [address] [place] [address] DACROCYTES PRESENCE IN BLOOD BY LIGHT MICROSCOPY Slight Abnormal (none) [facility] Comment on above: Performed By: #### L AB40 #### Hoistman: RELL AMAYA ([phone]) [facility] ([facility]) [address] [place] [address] [place] ELLIPTOCYTES IN BLOOD BY LIGHT MICROSCOPY Slight Abnormal (none) [facility] Comment on above: Performed By: #### L AB40 #### Hoistman: RELL AMAYA ([phone]) [facility] ([facility]) [address] [place] [address] [place] EOSINOPHILS (10*3/UL) IN BLOOD-CELLAVISION 0.6 10*3/uL High 0.0-0.5 [facility] Comment on above: Performed By: #### L AB40 #### Hoistman: RELL AMAYA ([phone]) [facility] [address] [place] [address] [place] EOSINOPHILS TOTAL PER COUNTED LEUKOCYTES BY MANUAL COUNT 12 High 0-1 [facility] Comment on above: Performed By: #### L AB40 #### Hoistman: RELL AMAYA ([phone]) [facility] [address] [place] [address] [place] EOSINOPHILS/100 LEUKOCYTES IN BLOOD-CELLAVISION 12 % High 0-6 [facility] Comment on above: Performed By: #### L AB40 #### Hoistman: RELL AMAYA ([phone]) [facility] [address] [place] [address] [place] LYMPHOCYTES (10*3/UL) IN BLOOD-CELLAVISION 0.4 10*3/uL Low 1.0-4.3 [facility] Comment on above: Performed By: #### L AB40 #### Hoistman: RELL AMAYA ([phone]) [facility] [address] [place] [address] [place] LYMPHOCYTES TOTAL PER COUNTED LEUKOCYTES BY MANUAL COUNT 8 Normal [facility] Comment on above: Performed By: #### L AB40 #### Hoistman: RELL AMAYA ([phone]) [facility] [address] [place] [address] [place] LYMPHOCYTES/100 LEUKOCYTES IN BLOOD-CELLAVISION 8 % Low 15-45 [facility] Comment on above: Performed By: #### L AB40 #### Hoistman: RELL AMAYA ([phone]) [facility] [address] [place] [address] [place] METAMYELOCYTES TOTAL PER COUNTED LEUKOCYTES BY MANUAL COUNT Normal [facility] Comment on above: Performed By: #### L AB40 #### Hoistman: RELL AMAYA ([phone]) [facility] [address] [place] [address] [place] MICROCYTES (PRESENCE) IN BLOOD BY LIGHT MICROSCOPY Moderate Abnormal (none) [facility] Comment on above: Performed By: #### L AB40 #### Hoistman: RELL AMAYA ([phone]) [facility] ([facility]) [address] [place] [address] [place] MONOCYTES (10*3/UL) IN BLOOD-CELLAVISION 0.2 10*3/uL Normal 0.0-0.9 [facility] Comment on above: Performed By: #### L AB40 #### Hoistman: RELL AMAYA ([id number]) [facility] [address] [place] [address] [place] MONOCYTES TOTAL PER COUNTED LEUKOCYTES BY MANUAL COUNT 4 Normal [facility] Comment on above: Performed By: #### L AB40 #### Hoistman: RELL AMAYA ([phone]) [facility] [address] [place] [address] [place] MONOCYTES/100 LEUKOCYTES IN BLOOD-KAYDEN 4 % Low 5-13 [facility] Comment on above: Performed By: #### L AB40 #### Hoistman: RELL AMAYA ([phone]) [facility] ([facility]) [address] [place] [address] [place] MYELOCYTES COUNTED BY MANUAL COUNT Normal [facility] Comment on above: Performed By: #### L AB40 #### Hoistman: RELL AMAYA ([phone]) [facility] [address] [place] [address] [place] NEUTROPHILS TOTAL PER COUNTED LEUKOCYTES BY MANUAL COUNT 75 Normal [facility] Comment on above: Performed By: #### L AB40 #### Hoistman: RELL AMAYA ([phone]) [facility] [address] [place] [address] OVALOCYTES PRESENCE IN BLOOD BY LIGHT MICROSCOPY Moderate Abnormal (none) [facility] Comment on above: Performed By: #### L AB40 #### Hoistman: RELL AMAYA ([phone]) [facility] [address] [place] [address] POIKILOCYTOSIS (PRESENCE) IN BLOOD BY LIGHT MICROSCOPY Moderate Abnormal (none) [facility] Comment on above: Performed By: #### L AB40 #### Hoistman: RELL AMAYA ([phone]) [facility] ([facility]) [address] [place] [address] POLYCHROMASIA IN BLOOD BY LIGHT MICROSCOPY Slight Abnormal (none) [facility] Comment on above: Performed By: #### L AB40 #### Hoistman: RELL AMAYA ([phone]) [facility] [address] [place] [address] PROMYELOCYTES TOTAL PER COUNTED LEUKOCYTES BY MANUAL COUNT Normal [facility] Comment on above: Performed By: #### L AB40 #### Hoistman: RELL AMAYA ([phone]) [facility] [address] [place] [address] RBC MORPHOLOGY IN BLOOD abnormal Normal [facility] Comment on above: Performed By: #### L [id number] #### Hoistman: RELL AMAYA ([phone]) [facility] [address] [place] [address] [place] SEGMENTED NEUTROPHILS (10*3/UL) IN BLOOD-CELLAVISION 3.6 10*3/uL Normal 1.8-7.5 [facility] Comment on above: Performed By: #### L [id number] #### Hoistman: RELL AMAYA ([phone]) [facility] [address] [place] [address] [place] SEGMENTED NEUTROPHILS/100 LEUKOCYTES-CE 75 % Normal 38-82 [facility] Comment on above: Performed By: #### L [id number] #### Hoistman: RELL AMAYA ([phone]) [facility] HOSPITAL) [address] [place] [address] UNCLASSIFIED CELLS TOTAL PER COUNTED LEUKOCYTES BY MANUAL COUNT [facility] Comment on above: Performed By: #### L [id number] #### Hoistman: RELL AMAYA ([phone]) [facility] ([facility]) [address] [place] [address] VARIANT LYMPHOCYTES TOTAL PER COUNTED LEUKOCYTES BY MANUAL COUNT [facility] Comment on above: Performed By: #### L [id number] #### Hoistman: RELL AMAYA ([id number]) [facility] ([facility]) [address] [place] [address] No Panel Informationon 11-08 Interpretation and review of laboratory results Abnormal [facility] Interpretation and review of laboratory results Abnormal [facility] Interpretation and review of laboratory results Abnormal [facility] Interpretation and review of laboratory results Abnormal [facility] Basophils Manual 1 [facility] Eosinophils Manual 12 High 0 - 1 [facility] Interpretation and review of laboratory results Abnormal [facility] Lymphocytes Manual 8 [facility] Monocytes Manual 4 [facility] Neutrophils Manual 75 [facility] 30on 11-07-2024 30 Problem: Problem Interventions Goal: Assess Nutritional Intake Outcome: Progressing Problem: Pain - Adult Goal: Verbalizes/displays adequate comfort level or baseline comfort level Outcome: Progressing Problem: Safety - Adult Goal: Free from fall injury Outcome: Progressing Normal [facility] 30 Problem: Problem Interventions Goal: Assess Nutritional Intake Outcome: Progressing Problem: Pain - Adult Goal: Verbalizes/displays adequate comfort level or baseline comfort level Outcome: Progressing Problem: Safety - Adult Goal: Free from fall injury Outcome: Progressing Problem: Discharge Planning Goal: Discharge to home or other facility with appropriate resources Outcome: Progressing Normal [facility] 30 Problem: Problem Interventions Goal: Assess Nutritional Intake Outcome: Progressing Problem: Pain - Adult Goal: Verbalizes/displays adequate comfort level or baseline comfort level Outcome: Progressing Problem: Safety - Adult Goal: Free from fall injury Outcome: Progressing Normal [facility] [id number] 11-07-2024 [id number] coverage for candida CINTRON reviewed via Secure Chat patient and dc plan with Sher Seay. [facility] [id number] Chart reviewed to anticipate DCP and needs. Clarification requested by treatment team regarding plan for TPN/PICC/antibiotics. Per General Surgery Dr Salazar via securechat, TPN is recommendation, awaiting primary plan. Per ID Dr Quintanilla via securechat, anticipate PO antibiotics. Per primary Dr Castelan via securechat, will review case and meet with patient, awaiting response. Consider LTC referral. SW consulted to follow via securechat. CM will continue to follow. Addendum: Dr Castelan discussed TPN with patient, who states she would like to think about how she would like to proceed. [facility] BASIC METABOLIC PANELon 10-29 Anion gap [Moles/Vol] 7 mmol/L Normal 3-13 [facility] Comment on above: Performed By: #### L [id number] #### Hoistman: RELL AMAYA ([id number]) [facility] [address] [place] [address] Calcium [Mass/Vol] 7.7 mg/dL Low 8.8-10.0 [facility] Comment on above: Performed By: #### L [id number] #### Hoistman: RELL AMAYA ([phone]) [facility] [address] [place] [address] [place] Chloride [Moles/Vol] 107 mmol/L Normal 98-107 [facility] Comment on above: Performed By: #### L [id number] #### Hoistman: RELL AMAYA ([id number]) [facility] [address] [place] [address] [place] CO2 [Moles/Vol] 26 mmol/L Normal 23-31 [facility] Comment on above: Performed By: #### L [id number] #### Hoistman: RELL AMAYA ([id number]) [facility]) [address] [place] [address] Creatinine [Mass/Vol] 0.50 mg/dL Low 0.57-1.11 [facility] Comment on above: Performed By: #### L [id number] #### Hoistman: RELL AMAYA ([phone]) [facility]) [address] [place] [address] GLOMERULAR FILTRATION RATE ML/MIN/1.73 SQ M.PREDICTED >90.0 Normal >60.0 [facility] Comment on above: Result Comment: Calc ulation based on the Chronic Kidney Disease Epidemiology Collaboration (CKD-EPI) equation refit without adjustment for race Performed By: #### L [id number] #### Hoistman: RELL AMAYA ([id number]) [facility] ([facility]) [address] [place] [address] [place] Glucose [Mass/Vol] 83 mg/dL Normal 82-115 [facility] Comment on above: Performed By: #### L [id number] #### Hoistman: RELL AMAYA ([id number]) [facility]) [address] [place] [address] [place] Potassium [Moles/Vol] 3.6 mmol/L Normal 3.5-5.1 [facility] Comment on above: Result Comment: [facility] potassium values may be up to 0.5 mmol/L lower than serum values. Performed By: #### L [id number] #### Hoistman: RELL AMAYA ([id number]) [facility] [address] [place] [address] [place] Sodium [Moles/Vol] 140 mmol/L Normal 136-145 [facility] Comment on above: Performed By: #### L [id number] #### Hoistman: RELL AMAYA ([id number]) [facility] [address] [place] [address] [place] Urea nitrogen [Mass/Vol] 3 mg/dL Low 9-23 [facility] Comment on above: Performed By: #### L [id number] #### Hoistman: RELL AMAYA ([id number]) [facility] ([facility]) [address] [place] [address] Bacteria identified Cx Nom ( Bld)on 11-07-2024 Interpretation and review of laboratory results Normal [facility] Basic metabolic 1998 panelon 11-07-2024 Anion gap [Moles/Vol] 7 mmol/L 3 - 13 mmol/L [facility] Calcium [Mass/Vol] 7.7 mg/dL Low 8.8 - 10. 0 mg/dL [facility] Chloride [Moles/Vol] 107 mmol/L 98 - 10 7 mmol/L [facility] CO2 [Moles/Vol] 26 mmol/L 23 - 31 mmol/L [facility] Creatinine [Mass/Vol] 0.5 mg/dL Low 0.57 - 1.11 mg/dL [facility] GFR/1.73 sq M.predicted (S/P/Bld) [Vol rate/Area] - PINF [facility] Glucose [Mass/Vol] 83 mg/dL 82 - 115 mg/dL [facility] Interpretation and review of laboratory results Abnormal [facility] Potassium [Moles/Vol] 3.6 mmol/L 3.5 - 5.1 mmol/L [facility] Sodium [Moles/Vol] 140 mmol/L 136 - 145 mmol/L [facility] Urea nitrogen [Mass/Vol] 3 mg/dL Low 9 - 23 mg/dL [facility] CBC W Auto Differential pane l (Bld)Ordered By: Gucci Davis on 11-07-2024 Basophils (Bld) [#/Vol] 0.1 10*3/uL 0.0 - 0.2 10*3/uL [facility] Basophils/100 WBC (Bld) 1.8 % 0.0 - 2.0 % [facility] Eosinophils (Bld) [#/Vol] 0.5 10*3/uL 0.0 - 0.5 10*3/uL [facility] Eosinophils/100 WBC (Bld) 9.7 % High 0.0 - 6.0 % [facility] Erythrocyte distribution width (RBC) [Ratio] 20.2 % High 11.5 - 15.0 % [facility] Hematocrit (Bld) [Volume fraction] 33.5 % Low 35.0 - 47.0 % [facility] Hemoglobin (Bld) [Mass/Vol] 10.2 g/dL Low 11.7 - 16.0 g/dL [facility] Immature granulocytes (Bld) [#/Vol] 0 10*3/uL NINF - 0.1 10*3/uL [facility] Immature granulocytes/100 WBC (Bld) 0.2 % 0.0 - 2.0 % [facility] Interpretation and review of laboratory results Abnormal [facility] Lymphocytes (Bld) [#/Vol] 1 10*3/uL 1.0 - 4.3 10*3/uL [facility] Lymphocytes/100 WBC (Bld) 19.3 % 15.0 - 45.0 % [facility] MCH (RBC) [Entitic mass] 23.3 pg Low 26.0 - 34.0 pg [facility] MCHC (RBC) [Mass/Vol] 30.4 % Low 30.5 - 36.0 % [facility] MCV (RBC) [Entitic vol] 76.5 fL Low 77.0 - 99.0 fL [facility] Monocytes (Bld) [#/Vol] 0.4 10*3/uL 0.0 - 0.9 10*3/uL [facility] Monocytes/100 WBC (Bld) 8.2 % 5.0 - 13.0 % [facility] Neutrophils (Bld) [#/Vol] 3.1 10*3/uL 1.8 - 7.5 10*3/uL [facility] Neutrophils/100 WBC (Bld) 60.8 % 38.0 - 82.0 % [facility] Nucleated RBC/100 WBC (Bld) [Ratio] 0 % [facility] Platelet mean volume (Bld) [Entitic vol] 10.3 fL 9.0 - 12.7 fL [facility] Platelets (Bld) [#/Vol] 411 10*3/uL 140 - 440 10*3/uL [facility] RBC (Bld) [#/Vol] 4.38 10*6/uL 3.80 - 5.2 0 10*6/uL [facility] WBC (Bld) [#/Vol] 5.1 10*3/uL 3.6 - 10.7 10*3/uL [facility] CBC WITH AUTO DIFFERENTIALon 11-07-2024 Basophils (Bld) [#/Vol] 0.1 10*3/uL Normal 0.0-0.2 [facility] Comment on above: Performed By: #### L [id number] #### Hoistman: RELL AMAYA ([id number]) [facility] ([facility]) [address] [place] [address] [place] Basophils/100 WBC (Bld) 1.8 % Normal 0.0-2.0 [facility] Comment on above: Performed By: #### L [id number] #### Hoistman: RELL AMAYA ([id number]) [facility] ([facility]) [address] [place] [address] [place] Eosinophils (Bld) [#/Vol] 0.5 10*3/uL Normal 0.0-0.5 [facility] Comment on above: Performed By: #### L [id number] #### Hoistman: RELL AMAYA ([id number]) [facility] ([facility]) [address] [place] [address] [place] Eosinophils/100 WBC (Bld) 9.7 % High 0.0-6.0 [facility] Comment on above: Performed By: #### L [id number] #### Hoistman: RELL AMAYA ([id number]) [facility] ([facility]) [address] [place] [address] Erythrocyte distribution width (RBC) [Ratio] 20.2 % High 11.5-15.0 [facility] Comment on above: Performed By: #### L [id number] #### Hoistman: RELL AMAYA ([id number]) [facility] ([facility]) [address] [place] [address] Hematocrit (Bld) [Volume fraction] 33.5 % Low 35.0-47.0 [facility] Comment on above: Performed By: #### L [id number] #### Hoistman: RELL AMAYA ([id number]) [facility] ([facility]) [address] [place] [address] [place] Hemoglobin (Bld) [Mass/Vol] 10.2 g/dL Low 11.7-16.0 [facility] Comment on above: Performed By: #### L [id number] #### Hoistman: RELL AMAYA ([id number]) [facility]) [address] [place] [address] IMMATURE GRANS % 0.2 % Normal 0.0-2.0 [facility] Comment on above: Performed By: #### L [id number] #### Hoistman: RELL AMAYA ([phone]) [facility]) [address] [place] [address] IMMATURE GRANS ABSOLUTE 0.0 10*3/uL Normal <0.1 [facility] Comment on above: Performed By: #### L [id number] #### Hoistman: RELL AMAYA ([id number]) [facility]) [address] [place] [address] Lymphocytes (Bld) [#/Vol] 1.0 10*3/uL Normal 1.0-4.3 [facility] Comment on above: Performed By: #### L [id number] #### Hoistman: RELL AMAYA ([id number]) [facility]) [address] [place] [address] Lymphocytes/100 WBC (Bld) 19.3 % Normal 15.0-45.0 [facility] Comment on above: Performed By: #### L [id number] #### Hoistman: RELL AMAYA ([id number]) [facility]) [address] [place] [address] MCH (RBC) [Entitic mass] 23.3 pg Low 26.0-34.0 [facility] Comment on above: Performed By: #### L [id number] #### Hoistman: RELL AMAYA ([id number]) [facility]) [address] [place] [address] MCHC 30.4 % Low 30.5-36.0 [facility] Comment on above: Performed By: #### L [id number] #### Hoistman: RELL AMAYA ([phone]) [facility] ([facility]) [address] [place] [address] MCV (RBC) [Entitic vol] 76.5 fL Low 77.0-99.0 [facility] Comment on above: Performed By: #### L [id number] #### Hoistman: RELL AMAYA ([phone]) [facility] ([facility]) [address] [place] [address] Monocytes (Bld) [#/Vol] 0.4 10*3/uL Normal 0.0-0.9 [facility] Comment on above: Performed By: #### L [id number] #### Hoistman: RELL AMAYA ([id number]) [facility] ([facility]) [address] [place] [address] Monocytes/100 WBC (Bld) 8.2 % Normal 5.0-13.0 [facility] Comment on above: Performed By: #### L [id number] #### Hoistman: RELL AMAYA ([id number]) [facility] ([facility]) [address] [place] [address] NEUTROPHILS ABSOLUTE 3.1 10*3/uL Normal 1.8-7.5 [facility] Comment on above: Performed By: #### L [id number] #### Hoistman: RELL AMAYA ([id number]) [facility] ([facility]) [address] [place] [address] Neutrophils/100 WBC (Bld) 60.8 % Normal 38.0-82.0 [facility] Comment on above: Performed By: #### L [id number] #### Hoistman: RELL AMAYA ([id number]) [facility] ([facility]) [address] [place] [address] NRBC 0.0 /100 WBCs Normal 0.0-2.0 [facility] Comment on above: Performed By: #### L [id number] #### Hoistman: RELL AMAYA ([id number]) [facility] ([facility]) [address] [place] [address] Platelet mean volume (Bld) [Entitic vol] 10.3 fL Normal 9.0-12.7 [facility] Comment on above: Performed By: #### L [id number] #### Hoistman: RELL AMAYA ([id number]) [facility] ([facility]) [address] [place] [address] Platelets (Bld) [#/Vol] 411 10*3/uL Normal 140-440 [facility] Comment on above: Performed By: #### L [id number] #### Hoistman: RELL AMAYA ([id number]) [facility] ([facility]) [address] [place] [address] RBC (Bld) [#/Vol] 4.38 10*6/uL Normal 3.80-5.20 [facility] Comment on above: Performed By: #### L [id number] #### Hoistman: RELL AMAYA ([id number]) [facility] ([facility]) [address] [place] [address] WBC (Bld) [#/Vol] 5.1 10*3/uL Normal 3.6-10.7 [facility] Comment on above: Performed By: #### L [id number] #### Hoistman: RELL AMAYA ([id number]) [facility] ([facility]) [address] [place] [address] Laboratory - Chemistry and C hemistry - challengeon 11-07-2024 Glucose [Mass/Vol] 94 mg/dL 70 - 100 mg/dL [facility] Glucose [Mass/Vol] 110 mg/dL High 70 - 100 mg/dL [facility] Glucose [Mass/Vol] 95 mg/dL 70 - 100 mg/dL [facility] Glucose [Mass/Vol] 90 mg/dL 70 - 100 mg/dL [facility] Laboratory - Microbiology an d Antimicrobial susceptibilityon 11-07-2024 Bacteria identified Cx Nom (Bld) No growth at 5 days [facility] No Panel Informationon 11-07 Interpretation and review of laboratory results Normal [facility] Interpretation and review of laboratory results Abnormal [facility] Interpretation and review of laboratory results Normal [facility] Interpretation and review of laboratory results Normal [facility] Progress Noteon 11-07-2024 Progress Note .Palliative Care Interdisciplinary Team Note: Diagnosis: Principal Problem: PICC line infection, initial encounter Active Problems: Severe malnutrition (CMS/HCC) (HCC) Chief Complaint: Yoko Emanuel is a 69 y.o. female with chief complaint of: bacteremia wounds Reason Palliative Following:Goals of Care Plan:Follow Clinical Course Code Status: DNR-CC Medications: Gabapentin (Neurontin) and Oxycodone Nursing: [facility] Social Work: No Unmet Needs Spiritual Care: Patient/Family Declined Pharmacy: No Unmet Needs Psychology/Psychiatry: No Unmet Needs Normal [facility] Progress Note Nutrition Assessment Type and Reason for Visit: Reassess Nutrition Recommendations/Plan: Per MNT protocol modify diet: easy to chew. Continue with Ensure Plus HP at lunch (8 oz provides 350 kcals, 20 gm protein) and magic cup at dinner (4 oz provides 290 kcals, 9 gm protein). If TPN considered and appropriate to place PICC line, recommend Initial TPN: 46 gm protein (184 kcals), 200 lipid kcals, 280 dextrose kcals. This provides a total of 664 kcals/day (20 kcals, 1.39 gm protein per kg of Admit wt: 33.1 kg). Monitor weight, labs, I/O, skin assessment, BM, and overall nutritional status. RD will follow up. Malnutrition Assessment: Malnutrition Status: Severe malnutrition (Identified by RD on 11/01/24) Context: Chronic Illness Nutrition Assessment: Per chart- 69 y.o. female with past medical history hyperlipidemia, neuropathy, DM2, partial right foot amputation. Patient presents with K pneumo bacteremia from PICC CLSBI, multiple wounds, and EC fistulas. Infected PICC line removed. ID and wound care are following. 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 She has been managing the EC fistula herself by changing wash clothes and diapers. Per general surgery, patient not interested in surgical options and this would be extremely limited regardless. Surgery recommends TPN- RD yoli VERDE who reported patient is undecided if wants TPN. Per nursing facility records- pt on oral diet and TPN. Palliative care is following- current code status is DNR:CC. RD spoke with patient this am. + Hard of hearing. Breakfast tray arrived- patient ordered scrambled eggs, chocolate milk, and applesauce. She reports that she has been trying to eat more. She iseating things like jello, pudding, applesauce, mac and cheese, chicken noodle soup. Difficulty chewing- chicken tenders were hard. Per diet office, patient ordered 2 meals per day for past few days. Patient states she is able to drink 1/2 Ensure daily and several bites of magic cup. Prefers Boost however, patient would like to continue with oral nutrition supplements. Patient requests chocolate milk at meals which RD notified diet office of this. Patient reports that her fistula drainage is usually consistency of what she consumes (ie drinks liquids- drainage is more like liquid). RD obtained a weight, but suspect this inaccurate due speciality bed and multiple items on bed: 43.9 kg (96.6#). She again states that she was 73# prior to this admission. Weight was 110-120# x 8-9 months ago per patient. Estimated Daily Nutrient Needs: Energy Requirements Based On: Kcal/kg Weight Used for Energy Requirements: Admission Weight for Energy Calculation (kg): 33.1 kg Total Energy Requirements (kcals/day): 4882-0887 kcals per day (32-38) Weight Used for Protein Requirements: Admission Weight in Kg Used for Protein Requirements: 33.1 kg Estimated Total Protein (g/day): 40-50 gm per day (1.2-1.5) Estimated Daily Total Fluid (ml/day): Per MD Nutrition Related Findings: Gerhard = 14, active bowel sounds, noted 2 EC fistuals, loose/watery stool from fistula on 11/06, no edema, I/O: +2034, room service selective Wound Type: (LLQ abdomen fistula - MASD d/t fecal incontinence; Right foot NHSW (delayed closure); Right heel unstageable pressure injury (POA); Left calf venous ulcer (fat); Left heel stage 3 pressure injury (POA); Sacral unstageable pressure injury (POA)) BMP: Recent Labs 11/05/24 0257 11/06/24 0205 11/07/24 0021 NA 139 139 140 K 3.5 3.5 3.6 CL 109* 108* 107 CO2 23 25 26 BUN <3* <3* 3* CREATININE 0.47* 0.46* 0.50* GLUCOSE 97 70* 83 CALCIUM 7.4* 7.5* 7.7* MG 2.0 2.0 -- Medications: Scheduled Meds[1] PRN Meds[2] Current Nutrition Therapies: Adult diet Regular Current Oral Intake Average Meal Intake: 0%, 1-25%, 26-50%, 76-100% Average Supplements Intake: Unable to assess Anthropometric Measures: Height: 144.8 cm (4' 9.01") Current Body Weight: 43.9 kg (96 lb 12.5 oz) Weight Source: Bed Scale (suspect weight is inaccurate due to speciality bed and multiple items on bed) Admission Body Weight: 33.1 kg (73 lb) (stated on 10/31/24) Usual Body Weight: (Epic weight history is limited; per patient- 110-120# x 8-9 months ago) [place] Body Weight (lbs) (Calculated): 94 lbs [place] Body Weight (Kg) (Calculated): 43 kg BMI (kg/m2) (Calculated): 20.9 Weight Adjustment For: No Adjustment BMI Categories: Underweight (BMI less than 22) age over 65 Nutrition Interventions: Nutrition Education/Counseling: No recommendation at this time Coordination of Nutrition Care: Continue to monitor while inpatient Goals: Previous Goal Met: No Progress toward Goal(s) Goals: PO intake 50% or greater, by next RD assessment Nutrition Monitoring and Evaluation: Behavioral-Environmental Outcomes: None Identified Food/Nutrient Intake Outcomes: Diet Advancement/Tolerance, Food and Nutrient Intake, Supplement Intake Physical S (more content not included)... Normal [facility] 30on 11-06-2024 Problem: Problem Interventions Goal: Assess Nutritional Intake Outcome: Progressing Problem: Pain - Adult Goal: Verbalizes/displays adequate comfort level or baseline comfort level Outcome: Progressing Problem: Safety - Adult Goal: Free from fall injury Outcome: Progressing Problem: Discharge Planning Goal: Discharge to home or other facility with appropriate resources Outcome: Progressing [facility] 30 Problem: Problem Interventions Goal: Assess Nutritional Intake Outcome: Progressing Problem: Pain - Adult Goal: Verbalizes/displays adequate comfort level or baseline comfort level Outcome: Progressing Problem: Safety - Adult Goal: Free from fall injury Outcome: Progressing Normal [facility] BASIC METABOLIC PANELon 06-0 Anion gap [Moles/Vol] 6 mmol/L Normal 3-13 [facility] Comment on above: Performed By: #### L [id number], LAB15 ####Hoistman: RELL AMAYA ([id number])[facility])[address] [place] [address] Calcium [Mass/Vol] 7.5 mg/dL Low 8.8-10.0 [facility] Comment on above: Performed By: #### L [id number], LAB15 ####Hoistman: RELL AMAYA ([id number])[facility])[address] [place] [address] Chloride [Moles/Vol] 108 mmol/L High 98-107 [facility] Comment on above: Performed By: #### L [id number], LAB15 ####Hoistman: ERLL AMAYA ([phone])[facility] ([facility])[address] [place] [address] CO2 [Moles/Vol] 25 mmol/L Normal 23-31 [facility] Comment on above: Performed By: #### L [id number], LAB15 ####Hoistman: RELL AMAYA ([id number])[facility])[address] [place] [address] Creatinine [Mass/Vol] 0.46 mg/dL Low 0.57-1.11 [facility] Comment on above: Performed By: #### L [id number], LAB15 ####Hoistman: RELL AMAYA ([phone])[facility])[address] [place] [address] GLOMERULAR FILTRATION RATE ML/MIN/1.73 SQ M.PREDICTED >90.0 Normal >60.0 [facility] Comment on above: Result Comment: Calc ulation based on the Chronic Kidney Disease Epidemiology Collaboration (CKD-EPI) equation refit without adjustment for race Performed By: #### L [id number], LAB15 ####Hoistman: RELL [id number])[facility] [place] [address] Glucose [Mass/Vol] 70 mg/dL Low 82-115 [facility] Comment on above: Performed By: #### L [id number], LAB15 ####Hoistman: RELL AMAYA ([phone])[facility] ([facility])[address] [place] [address] Potassium [Moles/Vol] 3.5 mmol/L Normal 3.5-5.1 [facility] Comment on above: Result Comment: [facility] potassium values may be up to 0.5 mmol/L lower than serum values. Performed By: #### L [id number], LAB15 ####Hoistman: RELL AMAYA ([phone])[facility] ([facility])[address] [place] [address] Sodium [Moles/Vol] 139 mmol/L Normal 136-145 [facility] Comment on above: Performed By: #### L AB103, LAB15 ####Hoistman: RELL AMAYA ([phone])[facility] ([facility])[address] [place] [address] Urea nitrogen [Mass/Vol] mg/dL Low 9-23 [facility] Comment on above: Performed By: #### L AB103, LAB15 ####Hoistman: RELL AMAYA ([id number])[facility])[address] [place] [address] Bacteria identified Anaer cx Nom (Unsp spec)on 11-06-2024 Interpretation and review of laboratory results Normal [facility] Basic metabolic 1998 panelon 11-06-2024 Anion gap [Moles/Vol] 6 mmol/L 3 - 13 mmol/L [facility] Calcium [Mass/Vol] 7.5 mg/dL Low 8.8 - 10. 0 mg/dL [facility] Chloride [Moles/Vol] 108 mmol/L High 98 - 10 7 mmol/L [facility] CO2 [Moles/Vol] 25 mmol/L 23 - 31 mmol/L [facility] Creatinine [Mass/Vol] 0.46 mg/dL Low 0.57 - 1.11 mg/dL [facility] GFR/1.73 sq M.predicted (S/P/Bld) [Vol rate/Area] - PINF [facility] Glucose [Mass/Vol] 70 mg/dL Low 82 - 115 mg/dL [facility] Interpretation and review of laboratory results Abnormal [facility] Potassium [Moles/Vol] 3.5 mmol/L 3.5 - 5.1 mmol/L [facility] Sodium [Moles/Vol] 139 mmol/L 136 - 145 mmol/L [facility] Urea nitrogen [Mass/Vol] mg/dL Low 9 - 23 mg/dL [facility] CBC W Auto Differential pane l (Bld)on 11-06-2024 Erythrocyte distribution width (RBC) [Ratio] 20.1 % High 11.5 - 15.0 % [facility] Hematocrit (Bld) [Volume fraction] 32.4 % Low 35.0 - 47.0 % [facility] Hemoglobin (Bld) [Mass/Vol] 9.8 g/dL Low 11.7 - 16.0 g/dL [facility] Interpretation and review of laboratory results Abnormal [facility] MCH (RBC) [Entitic mass] 23.2 pg Low 26.0 - 34.0 pg [facility] MCHC (RBC) [Mass/Vol] 30.2 % Low 30.5 - 36.0 % [facility] MCV (RBC) [Entitic vol] 76.8 fL Low 77.0 - 99.0 fL [facility] Platelet mean volume (Bld) [Entitic vol] 9.8 fL 9.0 - 12.7 fL [facility] Platelets (Bld) [#/Vol] 378 10*3/uL 140 - 440 10*3/uL [facility] RBC (Bld) [#/Vol] 4.22 10*6/uL 3.80 - 5.2 0 10*6/uL [facility] WBC (Bld) [#/Vol] 4.8 10*3/uL 3.6 - 10.7 10*3/uL [facility] CBC WITH AUTO DIFFERENTIALon 11-06-2024 Erythrocyte distribution width (RBC) [Ratio] 20.1 % High 11.5-15.0 [facility] Comment on above: Performed By: #### L AB40 #### Hoistman: RELL AMAYA ([phone]) [facility] ([facility]) [address] [place] [address] Hematocrit (Bld) [Volume fraction] 32.4 % Low 35.0-47.0 [facility] Comment on above: Performed By: #### L AB40 #### Hoistman: RELL AMAYA ([phone]) [facility] ([facility]) [address] [place] [address] Hemoglobin (Bld) [Mass/Vol] 9.8 g/dL Low 11.7-16.0 [facility] Comment on above: Performed By: #### L AB40 #### Hoistman: RELL AMAYA ([id number]) [facility]) [address] [place] [address] MCH (RBC) [Entitic mass] 23.2 pg Low 26.0-34.0 [facility] Comment on above: Performed By: #### L AB40 #### Hoistman: RELL AMAYA ([id number]) [facility] ([facility]) [address] [place] [address] MCHC 30.2 % Low 30.5-36.0 [facility] Comment on above: Performed By: #### L AB40 #### Hoistman: RELL AMAYA ([id number]) [facility] ([facility]) [address] [place] [address] MCV (RBC) [Entitic vol] 76.8 fL Low 77.0-99.0 [facility] Comment on above: Performed By: #### L AB40 #### Hoistman: RELL AMAYA ([phone]) [facility] ([facility]) [address] [place] [address] Platelet mean volume (Bld) [Entitic vol] 9.8 fL Normal 9.0-12.7 [facility] Comment on above: Performed By: #### L AB40 #### Hoistman: RELL AMAYA ([phone]) [facility] ([facility]) [address] [place] [address] [place] Platelets (Bld) [#/Vol] 378 10*3/uL Normal 140-440 [facility] Comment on above: Performed By: #### L AB40 #### Hoistman: RELL AMAYA ([id number]) [facility] ([facility]) [address] [place] [address] RBC (Bld) [#/Vol] 4.22 10*6/uL Normal 3.80-5.20 [facility] Comment on above: Performed By: #### L AB40 #### Hoistman: RELL AMAYA ([phone]) [facility] ([facility]) [address] [place] [address] WBC (Bld) [#/Vol] 4.8 10*3/uL Normal 3.6-10.7 [facility] Comment on above: Performed By: #### L AB40 #### Hoistman: RELL AMAYA ([id number]) [facility] ([facility]) [address] [place] [address] Laboratory - Chemistry and C hemistry - challengeon 11-06-2024 Glucose [Mass/Vol] 109 mg/dL High 70 - 100 mg/dL [facility] Glucose [Mass/Vol] 120 mg/dL High 70 - 100 mg/dL [facility] Glucose [Mass/Vol] 83 mg/dL 70 - 100 mg/dL [facility] Glucose [Mass/Vol] 73 mg/dL 70 - 100 mg/dL [facility] Magnesium [Mass/Vol] 2 mg/dL 1.6 - 2 .6 mg/dL [facility] Laboratory - Hematology and Cell countson 11-06-2024 Anisocytosis Ql (Bld) Slight Abnormal (none) [facility] Basophils (Bld) [#/Vol] 0.2 10*3/uL 0.0 - 0.2 10*3/uL [facility] Basophils/100 WBC (Bld) 5 % High 0 - 2 % [facility] Eosinophils (Bld) [#/Vol] 0.2 10*3/uL 0.0 - 0.5 10*3/uL [facility] Eosinophils/100 WBC (Bld) 5 % 0 - 6 % [facility] Lymphocytes (Bld) [#/Vol] 0.9 10*3/uL Low 1.0 - 4.3 10*3/uL [facility] Lymphocytes/100 WBC (Bld) 19 % 15 - 45 % [facility] Microcytes Ql (Bld) Slight Abnormal (none) [facility] Monocytes (Bld) [#/Vol] 0.3 10*3/uL 0.0 - 0.9 10*3/uL [facility] Monocytes/100 WBC (Bld) 7 % 5 - 13 % [facility] Neutrophils (Bld) [#/Vol] 3 10*3/uL 1.8 - 7.5 10*3/uL [facility] Ovalocytes LM Ql (Bld) Slight Abnormal (none) [facility] Poikilocytosis LM Ql (Bld) Slight Abnormal (none) [facility] Polychromasia LM Ql (Bld) Slight Abnormal (none) [facility] RBC morphology finding Nom (Bld) abnormal [facility] Segmented neutrophils/100 WBC (Bld) 63 % 38 - 82 % [facility] Target cells LM Ql (Bld) Slight Abnormal (none) [facility] Toxic granules LM Ql (Bld) Present Abnormal (none) [facility] Variant lymphocytes (Bld) [#/Vol] 0.1 10*3/uL High NINF - 0.0 10*3/uL [facility] Variant lymphocytes/100 WBC (Bld) 2 % High NINF - 0 % [facility] - Microbiology an d Antimicrobial susceptibilityon 11-06-2024 Bacteria identified Anaer cx Nom (Unsp spec) No growth at 5 days [facility] MAGNESIUMon 11-06-2024 Magnesium [Mass/Vol] 2.0 mg/dL Normal 1.6-2.6 [facility] Comment on above: Result Comment: SHASTA Peralta COMMENTS: Higher values can be expected in females during menses. Performed By: #### L AB103, LAB15 ####Hoistman: RELL AMAYA ([id number])[address] MANUAL DIFFERENTIAL (CELLAVI VITA)on 11-06-2024 ANISOCYTOSIS PRESENCE IN BLOOD BY LIGHT MICROSCOPY Slight Abnormal (none) [facility] Comment on above: Performed By: #### L AB40 #### Hoistman: RELL AMAYA ([id number]) [facility] [address] [place] [address] [place] BAND NEUTROPHILS TOTAL PER COUNTED LEUKOCYTES BY MANUAL COUNT Normal [facility] Comment on above: Performed By: #### L AB40 #### Hoistman: RELL AMAYA ([id number]) [facility] ([facility]) [address] [place] [address] [place] BASOPHILS (10*3/UL) IN BLOOD-CELLAVISION 0.2 10*3/uL Normal 0.0-0.2 [facility] Comment on above: Performed By: #### L AB40 #### Hoistman: RELL AMAYA ([phone]) [facility] ([facility]) [address] [place] [address] [place] BASOPHILS TOTAL PER COUNTED LEUKOCYTES BY MANUAL COUNT 5 Normal [facility] Comment on above: Performed By: #### L AB40 #### Hoistman: RELL AMAYA ([phone]) [facility] ([facility]) [address] [place] [address] [place] BASOPHILS/100 LEUKOCYTES IN BLOOD-CELLAVISION 5 % High 0-2 [facility] Comment on above: Performed By: #### L AB40 #### Hoistman: RELL AMAYA ([id number]) [facility] ([facility]) [address] [place] [address] [place] BLASTS TOTAL PER COUNTED LEUKOCYTES BY MANUAL COUNT Normal [facility] Comment on above: Performed By: #### L AB40 #### Hoistman: RELL AMAYA ([phone]) [facility] ([facility]) [address] [place] [address] [place] EOSINOPHILS (10*3/UL) IN BLOOD-CELLAVISION 0.2 10*3/uL Normal 0.0-0.5 [facility] Comment on above: Performed By: #### L AB40 #### Hoistman: RELL AMAYA ([phone]) [facility] ([facility]) [address] [place] [address] [place] EOSINOPHILS TOTAL PER COUNTED LEUKOCYTES BY MANUAL COUNT 5 High 0-1 [facility] Comment on above: Performed By: #### L AB40 #### Hoistman: RELL AMAYA ([phone]) [facility] [address] [place] [address] [place] EOSINOPHILS/100 LEUKOCYTES IN BLOOD-CELLAVISION 5 % Normal 0-6 [facility] Comment on above: Performed By: #### L AB40 #### Hoistman: RELL AMAYA ([phone]) [facility] [address] [place] [address] [place] LYMPHOCYTE VARIANT/100 LEUKOCYTES IN BLOOD- CELLAVISION 2 % High <=0 [facility] Comment on above: Performed By: #### L AB40 #### Hoistman: RELL AMAYA ([phone]) [facility] ([facility]) [address] [place] [address] [place] LYMPHOCYTES (10*3/UL) IN BLOOD-CELLAVISION 0.9 10*3/uL Low 1.0-4.3 [facility] Comment on above: Performed By: #### L AB40 #### Hoistman: RELL AMAYA ([phone]) [facility] [address] [place] [address] [place] LYMPHOCYTES TOTAL PER COUNTED LEUKOCYTES BY MANUAL COUNT 19 Normal [facility] Comment on above: Performed By: #### L AB40 #### Hoistman: RELL AMAYA ([phone]) [facility] ([facility]) [address] [place] [address] [place] LYMPHOCYTES/100 LEUKOCYTES IN BLOOD-CELLAVISION 19 % Normal 15-45 [facility] Comment on above: Performed By: #### L AB40 #### Hoistman: RELL AMAYA ([phone]) [facility] ([facility]) [address] [place] [address] [place] METAMYELOCYTES TOTAL PER COUNTED LEUKOCYTES BY MANUAL COUNT Normal [facility] Comment on above: Performed By: #### L AB40 #### Hoistman: RELL AMAYA ([phone]) [facility] [address] [place] [address] [place] MICROCYTES (PRESENCE) IN BLOOD BY LIGHT MICROSCOPY Slight Abnormal (none) [facility] Comment on above: Performed By: #### L AB40 #### Hoistman: RELL AMAYA ([phone]) [facility] [address] [place] [address] [place] MONOCYTES (10*3/UL) IN BLOOD-CELLAVISION 0.3 10*3/uL Normal 0.0-0.9 [facility] Comment on above: Performed By: #### L AB40 #### Hoistman: RELL AMAYA ([phone]) [facility] [address] [place] [address] [place] MONOCYTES TOTAL PER COUNTED LEUKOCYTES BY MANUAL COUNT 7 Normal [facility] Comment on above: Performed By: #### L AB40 #### Hoistman: RELL AMAYA ([phone]) [facility] [address] [place] [address] [place] MONOCYTES/100 LEUKOCYTES IN BLOOD-KAYDEN 7 % Normal 5-13 [facility] Comment on above: Performed By: #### L AB40 #### Hoistman: RELL AMAYA ([phone]) [facility] [address] [place] [address] MYELOCYTES COUNTED BY MANUAL COUNT Normal [facility] Comment on above: Performed By: #### L AB40 #### Hoistman: RELL AMAYA ([phone]) [facility] [address] [place] [address] NEUTROPHILS TOTAL PER COUNTED LEUKOCYTES BY MANUAL COUNT 64 Normal [facility] Comment on above: Performed By: #### L AB40 #### Hoistman: RELL AMAYA ([phone]) [facility] [address] [place] [address] [place] OVALOCYTES PRESENCE IN BLOOD BY LIGHT MICROSCOPY Slight Abnormal (none) [facility] Comment on above: Performed By: #### L AB40 #### Hoistman: RELL AMAYA ([phone]) [facility] ([facility]) [address] [place] [address] [place] POIKILOCYTOSIS (PRESENCE) IN BLOOD BY LIGHT MICROSCOPY Slight Abnormal (none) [facility] Comment on above: Performed By: #### L AB40 #### Hoistman: RELL AMAYA ([phone]) [facility]) [address] [place] [address] POLYCHROMASIA IN BLOOD BY LIGHT MICROSCOPY Slight Abnormal (none) [facility] Comment on above: Performed By: #### L AB40 #### Hoistman: RELL AMAYA ([phone]) [facility] ([facility]) [address] [place] [address] PROMYELOCYTES TOTAL PER COUNTED LEUKOCYTES BY MANUAL COUNT Normal [facility] Comment on above: Performed By: #### L AB40 #### Hoistman: RELL AMAYA ([phone]) [facility]) [address] [place] [address] RBC MORPHOLOGY IN BLOOD abnormal Normal [facility] Comment on above: Performed By: #### L AB40 #### Hoistman: RELL AMAYA ([phone]) [facility] ([facility]) [address] [place] [address] SEGMENTED NEUTROPHILS (10*3/UL) IN BLOOD-CELLAVISION 3.0 10*3/uL Normal 1.8-7.5 [facility] Comment on above: Performed By: #### L AB40 #### Hoistman: RELL AMAYA ([phone]) [facility]) [address] [place] [address] SEGMENTED NEUTROPHILS/100 LEUKOCYTES-CE 63 % Normal 38-82 [facility] Comment on above: Performed By: #### L AB40 #### Hoistman: RELL AMAYA ([phone]) [facility]) [address] [place] [address] TARGET CELLS IN BLOOD BY LIGHT MICROSCOPY Slight Abnormal (none) [facility] Comment on above: Performed By: #### L AB40 #### Hoistman: RELL AMAYA ([phone]) [facility] ([facility]) [address] [place] [address] TOXIC GRANULES PRESENCE IN BLOOD BY LIGHT MICROSCOPY (PRESENT) Present Abnormal (none) [facility] Comment on above: Performed By: #### L AB40 #### Hoistman: RELL AMAYA ([phone]) [facility] ([facility]) [address] [place] [address] UNCLASSIFIED CELLS TOTAL PER COUNTED LEUKOCYTES BY MANUAL COUNT Normal [facility] Comment on above: Performed By: #### L AB40 #### Hoistman: RELL AMAYA ([phone]) [facility] ([facility]) [address] [place] [address] VARIANT LYMPHOCYTES (10*3/UL) IN BLOOD-CELLAVISION 0.1 10*3/uL High <=0.0 [facility] Comment on above: Performed By: #### L AB40 #### Hoistman: RELL AMAYA ([phone]) [facility] ([facility]) [address] [place] [address] VARIANT LYMPHOCYTES TOTAL PER COUNTED LEUKOCYTES BY MANUAL COUNT 2 Normal [facility] Comment on above: Performed By: #### L AB40 #### Hoistman: RELL AMAYA ([phone]) [facility] ([facility]) [address] [place] [address] Magnesium [Mass/Vol]on 11-06 Interpretation and review of laboratory results Normal [facility] No Panel Informationon 11-06 Interpretation and review of laboratory results Abnormal [facility] Interpretation and review of laboratory results Abnormal [facility] Interpretation and review of laboratory results Normal [facility] Interpretation and review of laboratory results Normal [facility] Atypical Lymphocytes Manual 2 [facility] Basophils Manual 5 [facility] Eosinophils Manual 5 High 0 - 1 [facility] Interpretation and review of laboratory results Abnormal [facility] Lymphocytes Manual 19 [facility] Monocytes Manual 7 [facility] Neutrophils Manual 64 [facility] 30on 11-05-2024 30 Problem: Problem Interventions Goal: Assess Nutritional Intake Outcome: Progressing Problem: Pain - Adult Goal: Verbalizes/displays adequate comfort level or baseline comfort level Outcome: Progressing Problem: Safety - Adult Goal: Free from fall injury Outcome: Progressing Problem: Discharge Planning Goal: Discharge to home or other facility with appropriate resources Outcome: Progressing Problem: Chronic Conditions and Co-morbidities Goal: Patient's chronic conditions and co-morbidity symptoms are monitored and maintained or improved Outcome: Progressing Normal [facility] 30 Problem: Problem Interventions Goal: Assess Nutritional Intake Outcome: Progressing Problem: Pain - Adult Goal: Verbalizes/displays adequate comfort level or baseline comfort level Outcome: Progressing Problem: Safety - Adult Goal: Free from fall injury Outcome: Progressing Normal [facility] BASIC METABOLIC PANELon 06-0 Anion gap [Moles/Vol] 7 mmol/L Normal 3-13 [facility] Comment on above: Performed By: #### L AB103, LAB15 ####Hoistman: RELL AMAYA ([phone])[facility])[address] [place] [address] Calcium [Mass/Vol] 7.4 mg/dL Low 8.8-10.0 [facility] Comment on above: Performed By: #### L AB103, LAB15 ####Hoistman: RELL AMAYA ([phone])[facility] [place] [address] [place] Chloride [Moles/Vol] 109 mmol/L High 98-107 [facility] Comment on above: Performed By: #### L AB103, LAB15 ####Hoistman: RELL AMAYA ([phone])[facility] ([facility])[address] [place] [address] [place] CO2 [Moles/Vol] 23 mmol/L Normal 23-31 [facility] Comment on above: Performed By: #### L AB103, LAB15 ####Hoistman: RELL AMAYA ([phone])[facility] ([facility])[address] [place] [address] [place] Creatinine [Mass/Vol] 0.47 mg/dL Low 0.57-1.11 [facility] Comment on above: Performed By: #### L AB103, LAB15 ####Hoistman: RELL [id number])[facility] ([facility] GLOMERULAR FILTRATION RATE ML/MIN/1.73 SQ M.PREDICTED >90.0 Normal >60.0 [facility] Comment on above: Result Comment: Calc ulation based on the Chronic Kidney Disease Epidemiology Collaboration (CKD-EPI) equation refit without adjustment for race Performed By: #### L AB103, LAB15 ####Hoistman: RELL AMAYA ([phone])[facility])[address] [place] [address] Glucose [Mass/Vol] 97 mg/dL Normal 82-115 [facility] Comment on above: Performed By: #### L AB103, LAB15 ####Hoistman: RELL AMAYA ([phone])[address] Potassium [Moles/Vol] 3.5 mmol/L Normal 3.5-5.1 [facility] Comment on above: Result Comment: [facility] potassium values may be up to 0.5 mmol/L lower than serum values. Performed By: #### L AB103, LAB15 ####Hoistman: RELL AMAYA ([phone])[address] Sodium [Moles/Vol] 139 mmol/L Normal 136-145 [facility] Comment on above: Performed By: #### L AB103, LAB15 ####Hoistman: RELL AMAYA ([phone])[address] Urea nitrogen [Mass/Vol] mg/dL Low 9-23 [facility] Comment on above: Performed By: #### L AB103, LAB15 ####Hoistman: RELL AMAYA ([phone])[address] Basic metabolic 1998 panelon 11-05-2024 Anion gap [Moles/Vol] 7 mmol/L 3 - 13 mmol/L [facility] Calcium [Mass/Vol] 7.4 mg/dL Low 8.8 - 10. 0 mg/dL [facility] Chloride [Moles/Vol] 109 mmol/L High 98 - 10 7 mmol/L [facility] CO2 [Moles/Vol] 23 mmol/L 23 - 31 mmol/L [facility] Creatinine [Mass/Vol] 0.47 mg/dL Low 0.57 - 1.11 mg/dL [facility] GFR/1.73 sq M.predicted (S/P/Bld) [Vol rate/Area] - PINF [facility] Glucose [Mass/Vol] 97 mg/dL 82 - 115 mg/dL [facility] Interpretation and review of laboratory results Abnormal [facility] Potassium [Moles/Vol] 3.5 mmol/L 3.5 - 5.1 mmol/L [facility] Sodium [Moles/Vol] 139 mmol/L 136 - 145 mmol/L [facility] Urea nitrogen [Mass/Vol] mg/dL Low 9 - 23 mg/dL [facility] CBC W Auto Differential pane l (Bld)Ordered By: Jodie Barillas on 11-05-2024 Basophils (Bld) [#/Vol] 0.1 10*3/uL 0.0 - 0.2 10*3/uL [facility] Basophils/100 WBC (Bld) 1 % 0.0 - 2.0 % [facility] Eosinophils (Bld) [#/Vol] 0.4 10*3/uL 0.0 - 0.5 10*3/uL [facility] Eosinophils/100 WBC (Bld) 8.1 % High 0.0 - 6.0 % [facility] Erythrocyte distribution width (RBC) [Ratio] 19.8 % High 11.5 - 15.0 % [facility] Hematocrit (Bld) [Volume fraction] 31.4 % Low 35.0 - 47.0 % [facility] Hemoglobin (Bld) [Mass/Vol] 9.5 g/dL Low 11.7 - 16.0 g/dL [facility] Immature granulocytes (Bld) [#/Vol] 0 10*3/uL NINF - 0.1 10*3/uL [facility] Immature granulocytes/100 WBC (Bld) 0.4 % 0.0 - 2.0 % [facility] Interpretation and review of laboratory results Abnormal [facility] Lymphocytes (Bld) [#/Vol] 0.8 10*3/uL Low 1.0 - 4.3 10*3/uL [facility] Lymphocytes/100 WBC (Bld) 15.4 % 15.0 - 45.0 % [facility] MCH (RBC) [Entitic mass] 23.2 pg Low 26.0 - 34.0 pg [facility] MCHC (RBC) [Mass/Vol] 30.3 % Low 30.5 - 36.0 % [facility] MCV (RBC) [Entitic vol] 76.8 fL Low 77.0 - 99.0 fL [facility] Monocytes (Bld) [#/Vol] 0.4 10*3/uL 0.0 - 0.9 10*3/uL [facility] Monocytes/100 WBC (Bld) 8.1 % 5.0 - 13.0 % [facility] Neutrophils (Bld) [#/Vol] 3.5 10*3/uL 1.8 - 7.5 10*3/uL [facility] Neutrophils/100 WBC (Bld) 67 % 38.0 - 82.0 % [facility] Nucleated RBC/100 WBC (Bld) [Ratio] 0 % [facility] Platelet mean volume (Bld) [Entitic vol] 10.3 fL 9.0 - 12.7 fL [facility] Platelets (Bld) [#/Vol] 383 10*3/uL 140 - 440 10*3/uL [facility] RBC (Bld) [#/Vol] 4.09 10*6/uL 3.80 - 5.2 0 10*6/uL [facility] WBC (Bld) [#/Vol] 5.2 10*3/uL 3.6 - 10.7 10*3/uL [facility] CBC WITH AUTO DIFFERENTIALon 11-05-2024 Basophils (Bld) [#/Vol] 0.1 10*3/uL Normal 0.0-0.2 [facility] Comment on above: Performed By: #### L [id number] ####[place]: RELL AMAYA ([phone])[facility] ([address] Basophils/100 WBC (Bld) 1.0 % Normal 0.0-2.0 [facility] Comment on above: Performed By: #### L [id number] ####[place]: RELL AMAYA ([phone])[facility])[address] [place] [address] Eosinophils (Bld) [#/Vol] 0.4 10*3/uL Normal 0.0-0.5 [facility] Comment on above: Performed By: #### L [id number] ####[place]: RELL AMAYA ([id number])[facility] - [facility])[address] [place] [address] Eosinophils/100 WBC (Bld) 8.1 % High 0.0-6.0 [facility] Comment on above: Performed By: #### L [id number] ####Hoistman: RELL AMAYA ([phone])[address] Erythrocyte distribution width (RBC) [Ratio] 19.8 % High 11.5-15.0 [facility] Comment on above: Performed By: #### L [id number] ####Hoistman: RELL AMAYA ([phone])[address] Hematocrit (Bld) [Volume fraction] 31.4 % Low 35.0-47.0 [facility] Comment on above: Performed By: #### L [id number] ####Hoistman: RELL AMAYA ([phone])[address] Hemoglobin (Bld) [Mass/Vol] 9.5 g/dL Low 11.7-16.0 [facility] Comment on above: Performed By: #### L [id number] ####Hoistman: RELL AMAYA ([id number])[address] IMMATURE GRANS % 0.4 % Normal 0.0-2.0 [facility] Comment on above: Performed By: #### L [id number] ####Hoistman: RELL AMAYA ([phone])[facility] [address] IMMATURE GRANS ABSOLUTE 0.0 10*3/uL Normal <0.1 [facility] Comment on above: Performed By: #### L [id number] ####Hoistman: RELL AMAYA ([phone])[facility])[address] [place] [address] Lymphocytes (Bld) [#/Vol] 0.8 10*3/uL Low 1.0-4.3 [facility] Comment on above: Performed By: #### L [id number] ####Hoistman: RELL AMAYA ([phone])[address] Lymphocytes/100 WBC (Bld) 15.4 % Normal 15.0-45.0 [facility] Comment on above: Performed By: #### L [id number] ####Hoistman: RELL AMAYA ([phone])[facility])[address] [place] [address] MCH (RBC) [Entitic mass] 23.2 pg Low 26.0-34.0 [facility] Comment on above: Performed By: #### L [id number] ####Hoistman: RELL AMAYA ([phone])[address] MCHC 30.3 % Low 30.5-36.0 [facility] Comment on above: Performed By: #### L [id number] ####Hoistman: RELL AMAYA ([id number])[facility])[address] [place] [address] MCV (RBC) [Entitic vol] 76.8 fL Low 77.0-99.0 [facility] Comment on above: Performed By: #### L [id number] ####Hoistman: RELL AMAYA ([phone])[address] Monocytes (Bld) [#/Vol] 0.4 10*3/uL Normal 0.0-0.9 [facility] Comment on above: Performed By: #### L [id number] ####Hoistman: RELL AMAYA ([phone])[facility])[address] [place] [address] Monocytes/100 WBC (Bld) 8.1 % Normal 5.0-13.0 [facility] Comment on above: Performed By: #### L [id number] ####Hoistman: RELL AMAYA ([id number])[facility])[address] [place] [address] NEUTROPHILS ABSOLUTE 3.5 10*3/uL Normal 1.8-7.5 [facility] Comment on above: Performed By: #### L [id number] ####Hoistman: RELL AMAYA ([phone])[facility])[address] [place] [address] Neutrophils/100 WBC (Bld) 67.0 % Normal 38.0-82.0 [facility] Comment on above: Performed By: #### L [id number] ####Hoistman: RELL AMAYA ([phone])[facility])[address] [place] [address] NRBC 0.0 /100 WBCs Normal 0.0-2.0 [facility] Comment on above: Performed By: #### L [id number] ####Hoistman: RELL AMAYA ([phone])[facility])[address] [place] [address] Platelet mean volume (Bld) [Entitic vol] 10.3 fL Normal 9.0-12.7 [facility] Comment on above: Performed By: #### L [id number] ####Hoistman: RELL AMAYA ([id number])[facility])[address] [place] [address] Platelets (Bld) [#/Vol] 383 10*3/uL Normal 140-440 [facility] Comment on above: Performed By: #### L [id number] ####Hoistman: RELL AMAYA ([phone])[facility] [place] [address] RBC (Bld) [#/Vol] 4.09 10*6/uL Normal 3.80-5.20 [facility] Comment on above: Performed By: #### L [id number] ####Hoistman: RELL AMAYA ([phone])[facility])[address] [place] [address] WBC (Bld) [#/Vol] 5.2 10*3/uL Normal 3.6-10.7 [facility] Comment on above: Performed By: #### L [id number] ####Hoistman: RELL AMAYA ([phone])[facility])[address] [place] [address] Laboratory - Chemistry and C hemistry - challengeon 11-05-2024 Glucose [Mass/Vol] 84 mg/dL 70 - 100 mg/dL [facility] Glucose [Mass/Vol] 72 mg/dL 70 - 100 mg/dL [facility] Glucose [Mass/Vol] 81 mg/dL 70 - 100 mg/dL [facility] Glucose [Mass/Vol] 97 mg/dL 70 - 100 mg/dL [facility] Magnesium [Mass/Vol] 2 mg/dL 1.6 - 2 .6 mg/dL [facility] MAGNESIUMon 11-05-2024 Magnesium [Mass/Vol] 2.0 mg/dL Normal 1.6-2.6 [facility] Comment on above: Result Comment: SHASTA Peralta COMMENTS: Higher values can be expected in females during menses. Performed By: #### L AB103, LAB15 ####Hoistman: RELL AMAYA ([phone])[facility])[address] [place] [address] Magnesium [Mass/Vol]on 11-05 Interpretation and review of laboratory results Normal [facility] No Panel Informationon 11-05 Interpretation and review of laboratory results Normal [facility] Interpretation and review of laboratory results Normal [facility] Interpretation and review of laboratory results Normal [facility] Interpretation and review of laboratory results Normal [facility] 30on 11-04-2024 30 Problem: Problem Interventions Goal: Assess Nutritional Intake Outcome: Progressing Problem: Pain - Adult Goal: Verbalizes/displays adequate comfort level or baseline comfort level Outcome: Progressing Problem: Safety - Adult Goal: Free from fall injury Outcome: Progressing Problem: Discharge Planning Goal: Discharge to home or other facility with appropriate resources Outcome: Progressing Problem: Chronic Conditions and Co-morbidities Goal: Patient's chronic conditions and co-morbidity symptoms are monitored and maintained or improved Outcome: Progressing Normal [facility] 30 Problem: Pain - Adul t Goal: Verbalizes/displays adequate comfort level or baseline comfort level Outcome: Progressing Problem: Safety - Adult Goal: Free from fall injury Outcome: Progressing Problem: Chronic Conditions and Co-morbidities Goal: Patient's chronic conditions and co-morbidity symptoms are monitored and maintained or improved Outcome: Progressing Normal [facility] BASIC METABOLIC PANELon 06 Anion gap [Moles/Vol] 5 mmol/L Normal 3-13 [facility] Comment on above: Performed By: #### L AB103, LAB15 ####Hoistman: RELL AMAYA ([id number])[address] Calcium [Mass/Vol] 7.3 mg/dL Low 8.8-10.0 [facility] Comment on above: Performed By: #### L AB103, LAB15 ####Hoistman: RELL AMAYA ([id number])[address] Chloride [Moles/Vol] 112 mmol/L High 98-107 [facility] Comment on above: Performed By: #### L AB103, LAB15 ####Hoistman: RELL AMAYA ([phone])[facility])[address] [place] [address] CO2 [Moles/Vol] 22 mmol/L Low 23-31 [facility] Comment on above: Performed By: #### L AB103, LAB15 ####Hoistman: RELL [id number])[facility] [place] [address] [place] Creatinine [Mass/Vol] 0.50 mg/dL Low 0.57-1.11 [facility] Comment on above: Performed By: #### L AB103, LAB15 ####Hoistman: RELL AMAYA ([phone])[facility])[address] [place] [address] [place] GLOMERULAR FILTRATION RATE ML/MIN/1.73 SQ M.PREDICTED >90.0 Normal >60.0 [facility] Comment on above: Result Comment: Calc ulation based on the Chronic Kidney Disease Epidemiology Collaboration (CKD-EPI) equation refit without adjustment for race Performed By: #### L ROBERTO, LAB15 ####Hoistman: RELL AMAYA ([phone])[facility])[address] [place] [address] [place] Glucose [Mass/Vol] 71 mg/dL Low 82-115 [facility] Comment on above: Performed By: #### L AB103, LAB15 ####Hoistman: RELL AMAYA ([phone])[facility])[address] [place] [address] [place] Potassium [Moles/Vol] 3.5 mmol/L Normal 3.5-5.1 [facility] Comment on above: Result Comment: [facility] potassium values may be up to 0.5 mmol/L lower than serum values. Performed By: #### L 103, LAB15 ####Hoistman: RELL AMAYA ([id number])[facility] [place] [address] [place] Sodium [Moles/Vol] 139 mmol/L Normal 136-145 [facility] Comment on above: Performed By: #### L AB103, LAB15 ####Hoistman: RELL AMAYA ([phone])[facility])[address] [place] [address] [place] Urea nitrogen [Mass/Vol] 3 mg/dL Low 9-23 [facility] Comment on above: Performed By: #### L AB103, LAB15 ####Hoistman: RELL AMAYA ([phone])[facility])[address] [place] [address] Basic metabolic 1998 panelon 11-04-2024 Anion gap [Moles/Vol] 5 mmol/L 3 - 13 mmol/L [facility] Calcium [Mass/Vol] 7.3 mg/dL Low 8.8 - 10. 0 mg/dL [facility] Chloride [Moles/Vol] 112 mmol/L High 98 - 10 7 mmol/L [facility] CO2 [Moles/Vol] 22 mmol/L Low 23 - 31 mmol/L [facility] Creatinine [Mass/Vol] 0.5 mg/dL Low 0.57 - 1.11 mg/dL [facility] GFR/1.73 sq M.predicted (S/P/Bld) [Vol rate/Area] - PINF [facility] Glucose [Mass/Vol] 71 mg/dL Low 82 - 115 mg/dL [facility] Interpretation and review of laboratory results Abnormal [facility] Potassium [Moles/Vol] 3.5 mmol/L 3.5 - 5.1 mmol/L [facility] Sodium [Moles/Vol] 139 mmol/L 136 - 145 mmol/L [facility] Urea nitrogen [Mass/Vol] 3 mg/dL Low 9 - 23 mg/dL [facility] CBC W Auto Differential pane l (Bld)on 11-04-2024 Basophils (Bld) [#/Vol] 0.1 10*3/uL 0.0 - 0.2 10*3/uL [facility] Basophils/100 WBC (Bld) 1.5 % 0.0 - 2.0 % [facility] Eosinophils (Bld) [#/Vol] 0.4 10*3/uL 0.0 - 0.5 10*3/uL [facility] Eosinophils/100 WBC (Bld) 6.7 % High 0.0 - 6.0 % [facility] Erythrocyte distribution width (RBC) [Ratio] 19.6 % High 11.5 - 15.0 % [facility] Hematocrit (Bld) [Volume fraction] 28.9 % Low 35.0 - 47.0 % [facility] Hemoglobin (Bld) [Mass/Vol] 8.9 g/dL Low 11.7 - 16.0 g/dL [facility] Immature granulocytes (Bld) [#/Vol] 0 10*3/uL NINF - 0.1 10*3/uL [facility] Immature granulocytes/100 WBC (Bld) 0.4 % 0.0 - 2.0 % [facility] Interpretation and review of laboratory results Abnormal [facility] Lymphocytes (Bld) [#/Vol] 0.7 10*3/uL Low 1.0 - 4.3 10*3/uL [facility] Lymphocytes/100 WBC (Bld) 12.5 % Low 15.0 - 45.0 % [facility] MCH (RBC) [Entitic mass] 23.4 pg Low 26.0 - 34.0 pg [facility] MCHC (RBC) [Mass/Vol] 30.8 % 30.5 - 36.0 % [facility] MCV (RBC) [Entitic vol] 76.1 fL Low 77.0 - 99.0 fL [facility] Monocytes (Bld) [#/Vol] 0.5 10*3/uL 0.0 - 0.9 10*3/uL [facility] Monocytes/100 WBC (Bld) 8.8 % 5.0 - 13.0 % [facility] Neutrophils (Bld) [#/Vol] 3.7 10*3/uL 1.8 - 7.5 10*3/uL [facility] Neutrophils/100 WBC (Bld) 70.1 % 38.0 - 82.0 % [facility] Nucleated RBC/100 WBC (Bld) [Ratio] 0 % [facility] Platelet mean volume (Bld) [Entitic vol] 10.5 fL 9.0 - 12.7 fL [facility] Platelets (Bld) [#/Vol] 342 10*3/uL 140 - 440 10*3/uL [facility] RBC (Bld) [#/Vol] 3.8 10*6/uL 3.80 - 5.2 0 10*6/uL [facility] WBC (Bld) [#/Vol] 5.3 10*3/uL 3.6 - 10.7 10*3/uL [facility] CBC WITH AUTO DIFFERENTIALon 11-04-2024 Basophils (Bld) [#/Vol] 0.1 10*3/uL Normal 0.0-0.2 [facility] Comment on above: Performed By: #### L [id number] ####Hoistman: RELL AMAYA ([phone])[facility])[address] [place] [address] Basophils/100 WBC (Bld) 1.5 % Normal 0.0-2.0 [facility] Comment on above: Performed By: #### L [id number] ####Hoistman: RELL AMAYA ([id number])[facility])[address] [place] [address] Eosinophils (Bld) [#/Vol] 0.4 10*3/uL Normal 0.0-0.5 [facility] Comment on above: Performed By: #### L [id number] ####Hoistman: RELL AMAYA ([id number])[facility])[address] [place] [address] Eosinophils/100 WBC (Bld) 6.7 % High 0.0-6.0 [facility] Comment on above: Performed By: #### L [id number] ####Hoistman: RELL AMAYA ([phone])[facility])[address] [place] [address] Erythrocyte distribution width (RBC) [Ratio] 19.6 % High 11.5-15.0 [facility] Comment on above: Performed By: #### L [id number] ####Hoistman: RELL AMAYA ([id number])[facility])[address] [place] [address] Hematocrit (Bld) [Volume fraction] 28.9 % Low 35.0-47.0 [facility] Comment on above: Performed By: #### L [id number] ####Hoistman: RELL AMAYA ([id number])[address] Hemoglobin (Bld) [Mass/Vol] 8.9 g/dL Low 11.7-16.0 [facility] Comment on above: Performed By: #### L [id number] ####Hoistman: RELL [id number])[facility])[address] [place] [address] IMMATURE GRANS % 0.4 % Normal 0.0-2.0 [facility] Comment on above: Performed By: #### L [id number] ####Hoistman: RELL AMAYA ([phone])[facility])[address] [place] [address] IMMATURE GRANS ABSOLUTE 0.0 10*3/uL Normal <0.1 [facility] Comment on above: Performed By: #### L [id number] ####Hoistman: RELL AMAYA ([id number])[facility])[address] [place] [address] Lymphocytes (Bld) [#/Vol] 0.7 10*3/uL Low 1.0-4.3 [facility] Comment on above: Performed By: #### L [id number] ####Hoistman: RELL AMAYA ([id number])[facility])[address] [place] [address] Lymphocytes/100 WBC (Bld) 12.5 % Low 15.0-45.0 [facility] Comment on above: Performed By: #### L [id number] ####Hoistman: RELL AMAYA ([id number])[facility])[address] [place] [address] MCH (RBC) [Entitic mass] 23.4 pg Low 26.0-34.0 [facility] Comment on above: Performed By: #### L [id number] ####Hoistman: RELL AMAYA ([phone])[facility])[address] [place] [address] MCHC 30.8 % Normal 30.5-36.0 [facility] Comment on above: Performed By: #### L [id number] ####Hoistman: RELL AMAYA ([phone])[facility])[address] [place] [address] MCV (RBC) [Entitic vol] 76.1 fL Low 77.0-99.0 [facility] Comment on above: Performed By: #### L [id number] ####Hoistman: RELL AMAYA ([phone])[facility])[address] [place] [address] Monocytes (Bld) [#/Vol] 0.5 10*3/uL Normal 0.0-0.9 [facility] Comment on above: Performed By: #### L [id number] ####Hoistman: RELL AMAYA ([phone])[facility])[address] [place] [address] Monocytes/100 WBC (Bld) 8.8 % Normal 5.0-13.0 [facility] Comment on above: Performed By: #### L [id number] ####Hoistman: RELL AMAYA ([phone])[facility])[address] [place] [address] NEUTROPHILS ABSOLUTE 3.7 10*3/uL Normal 1.8-7.5 [facility] Comment on above: Performed By: #### L [id number] ####Hoistman: RELL AMAYA ([phone])[facility])[address] [place] [address] Neutrophils/100 WBC (Bld) 70.1 % Normal 38.0-82.0 [facility] Comment on above: Performed By: #### L [id number] ####Hoistman: RELL AMAYA ([phone])[facility])[address] [place] [address] NRBC 0.0 /100 WBCs Normal 0.0-2.0 [facility] Comment on above: Performed By: #### L [id number] ####Hoistman: RELL AMAYA ([phone])[facility])[address] [place] [address] Platelet mean volume (Bld) [Entitic vol] 10.5 fL Normal 9.0-12.7 [facility] Comment on above: Performed By: #### L [id number] ####Hoistman: RELL AMAYA ([phone])[facility])[address] [place] [address] Platelets (Bld) [#/Vol] 342 10*3/uL Normal 140-440 [facility] Comment on above: Performed By: #### L [id number] ####Hoistman: RELL AMAYA ([phone])[facility])[address] [place] [address] RBC (Bld) [#/Vol] 3.80 10*6/uL Normal 3.80-5.20 [facility] Comment on above: Performed By: #### L [id number] ####Hoistman: RELL AMAYA ([phone])[facility])[address] [place] [address] WBC (Bld) [#/Vol] 5.3 10*3/uL Normal 3.6-10.7 [facility] Comment on above: Performed By: #### L [id number] ####Hoistman: RELL AMAYA ([phone])[facility])[address] [place] [address] Laboratory - Chemistry and C hemistry - challengeon 11-04-2024 Glucose [Mass/Vol] 137 mg/dL High 70 - 100 mg/dL [facility] Glucose [Mass/Vol] 115 mg/dL High 70 - 100 mg/dL [facility] Glucose [Mass/Vol] 72 mg/dL 70 - 100 mg/dL [facility] Glucose [Mass/Vol] 109 mg/dL High 70 - 100 mg/dL [facility] Magnesium [Mass/Vol] 1.9 mg/dL 1.6 - 2 .6 mg/dL [facility] MAGNESIUMon 11-04-2024 Magnesium [Mass/Vol] 1.9 mg/dL Normal 1.6-2.6 [facility] Comment on above: Result Comment: SHASTA Peralta COMMENTS: Higher values can be expected in females during menses. Performed By: #### L AB103, LAB15 ####Hoistman: RELL AMAYA ([phone])[facility] [place] [address] [place] Magnesium [Mass/Vol]on 11-04 Interpretation and review of laboratory results Normal [facility] No Panel Informationon 11-04 Interpretation and review of laboratory results Abnormal [facility] Interpretation and review of laboratory results Abnormal [facility] Interpretation and review of laboratory results Normal [facility] Interpretation and review of laboratory results Abnormal [facility] [id number] 11-03-2024 [id number] coverage for toda y. SW consulted 10/31/24 from NICHELLE Ortiz, Patient is a DNR CC with multiple wounds and issues". EMR reviewed. SAIDA met with patient bedside; introduced self, role and offered community resources/supports/referr als. Patient [facility]. Patient shared she has been staying at [facility] for about 5 months, normally resides in an apartment in [place], [place]. Patient plans to return to [facility] at discharge if they can manage her care needs. Patient said they do a good job but I know that I require a lot of care". Patient said, "I just want to get better, the staff at [facility] had me talk to hospice but I still have a lot of things I want to do." Patient reported her youngest son Sean (31 years) is her emergency contact/next of kin. Shared he is a office machine inspector, works many hours (Over-time/double shifts) and has MS. Patient shared she has an older son who is in intermediate. No active need for SW follow up presently. Travel Registered Nurse [facility] is following for placement needs. SW will follow along with treatment team and assist with discharge planning as needed. Patient may benefit from an LTAC assessment. Normal [facility] Bacteria identified Aer cx N om (Unsp spec)Ordered By: Ade Moore on 11-03-2024 Gram Stain Result Moderate Polymorphonuclear leukocytes per low power field Abnormal [facility] Gram Stain Result Positive Abnormal [facility] Gram Stain Result Negative Abnormal [facility] Gram Stain Result Few Yeast Abnormal [facility] Interpretation and review of laboratory results Abnormal [facility] Bacteria identified Cx Nom ( Bld)Ordered By: Latisha Singleton on 11-03-2024 Interpretation and review of laboratory results Abnormal [facility] Bacteria identified Cx Nom ( Bld)on 11-03-2024 Interpretation and review of laboratory results Abnormal [facility] Bacteria identified Cx Nom ( Catheter tip)on 11-03-2024 Interpretation and review of laboratory results Abnormal [facility] Consulton 11-03-2024 Consult SW consulted 10/31/24 from NICHELLE Ortiz, Patient is a DNR CC with multiple wounds and issues". EMR reviewed. Patient from [facility] and plan is to return. DESIGN CHIEF to follow along on treatment team and assist with transitions of care as needed. Normal [facility] Laboratory - Chemistry and C hemistry - challengeon 11-03-2024 Glucose [Mass/Vol] 91 mg/dL 70 - 100 mg/dL [facility] Glucose [Mass/Vol] 106 mg/dL High 70 - 100 mg/dL [facility] Glucose [Mass/Vol] 90 mg/dL 70 - 100 mg/dL [facility] Glucose [Mass/Vol] 75 mg/dL 70 - 100 mg/dL [facility] - Microbiology an d Antimicrobial susceptibilityOrdered By: Latisha Singleton on 11-03-2024 Bacteria identified Cx Nom (Bld) Klebsiella pneumoniae Critically abnormal [facility] - Microbiology an d Antimicrobial susceptibilityon 11-03-2024 Bacteria identified Cx Nom (Bld) Klebsiella pneumoniae Critically abnormal [facility] Bacteria identified Cx Nom (Catheter tip) >15 CFU Klebsiella pneumoniae Abnormal [facility] - Microbiology an d Antimicrobial susceptibilityOrdered By: Ade Moore on 11-03-2024 Bacteria identified Aer cx Nom (Unsp spec) Moderate enteric lilly present [facility] No Panel Informationon 11-03 Interpretation and review of laboratory results Normal [facility] Interpretation and review of laboratory results Abnormal [facility] Interpretation and review of laboratory results Normal [facility] Interpretation and review of laboratory results Normal [facility] Progress Noteon 11-03-2024 Progress Note Vancomycin therapy h as been discontinued by Ida Suarez MD on 11/03/24. Thank you for the consult. Pharmacy signing off for vancomycin dosing. Chantal SalesD Date: 11/03/24 Time: 1:28 PM [facility] Progress Note .Palliative Care Interdisciplinary Team Note: Diagnosis: Principal Problem: PICC line infection, initial encounter Active Problems: Severe malnutrition (CMS/HCC) ([facility]) Chief Complaint: Yoko Emanuel is a 69 y.o. female with chief complaint of: bacteremia wounds [facility] Following:Goals of Care Plan:Ongoing Goals of Care Discussions and Symptom Management Code Status: DNR-CC Medications: Gabapentin (Neurontin), Hydromorphone (Dilaudid), and Oxycodone Nursing: Jail Care and Skin Integrity Social Work: No Unmet Needs Spiritual Care: Patient/Family Declined Pharmacy: No Unmet Needs Psychology/Psychiatry: No Unmet Needs Normal [facility] [id number] [phone] [facility] contacted via GIVTED to identify level of care for current bed hold, and if nursing home can be provided 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 CM will continue to follow. Addendum: Per Dr De La Cruz, ID requesting records from [place] and [facility]-microbiology/cu ltures/discharge summary. Spoke with both facilities and records requested to be faxed to . Records from [facility] received and placed on paper chart. Awaiting records from [facility]. Dr De La Cruz and Anthony aware. Per [facility] via GIVTED, able to accept patient for nursing home needs. CM will continue to follow. [facility] BASIC METABOLIC PANELon Anion gap [Moles/Vol] 9 mmol/L Normal 3-13 [facility] Comment on above: Performed By: #### L [id number] #### Hoistman: RELL AMAYA ([phone]) [facility] ([facility]) [address] [place] [address] Calcium [Mass/Vol] 7.5 mg/dL Low 8.8-10.0 [facility] Comment on above: Performed By: #### L AB753 #### Hoistman: RELL AMAYA ([phone]) [facility] [address] [place] [address] Chloride [Moles/Vol] 109 mmol/L High 98-107 [facility] Comment on above: Performed By: #### L AB753 #### Hoistman: RELL AMAYA ([phone]) [facility] [address] [place] [address] CO2 [Moles/Vol] 19 mmol/L Low 23-31 [facility] Comment on above: Performed By: #### L AB753 #### Hoistman: RELL AMAYA ([id number]) [facility] [address] [place] [address] Creatinine [Mass/Vol] 0.50 mg/dL Low 0.57-1.11 [facility] Comment on above: Performed By: #### L AB753 #### Hoistman: RELL AMAYA ([id number]) [facility] [address] [place] [address] GLOMERULAR FILTRATION RATE ML/MIN/1.73 SQ M.PREDICTED >90.0 Normal >60.0 [facility] Comment on above: Result Comment: Calc ulation based on the Chronic Kidney Disease Epidemiology Collaboration (CKD-EPI) equation refit without adjustment for race Performed By: #### L AB753 #### Hoistman: RELL AMAYA ([phone]) [facility] [address] [place] [address] Glucose [Mass/Vol] 74 mg/dL Low 82-115 [facility] Comment on above: Performed By: #### L AB753 #### Hoistman: RELL AMAYA ([phone]) [facility] [address] [place] [address] Potassium [Moles/Vol] 4.0 mmol/L Normal 3.5-5.1 [facility] Comment on above: Result Comment: [facility] potassium values may be up to 0.5 mmol/L lower than serum values. Performed By: #### L AB753 #### Hoistman: RELL AMAYA ([id number]) [facility]) [address] [place] [address] Sodium [Moles/Vol] 137 mmol/L Normal 136-145 [facility] Comment on above: Performed By: #### L AB753 #### Hoistman: RELL AMAYA ([phone]) [facility]) [address] [place] [address] Urea nitrogen [Mass/Vol] 5 mg/dL Low 9-23 [facility] Comment on above: Performed By: #### L AB753 #### Hoistman: RELL AMAYA ([phone]) [facility]) [address] [place] [address] BLOOD CULTUREon 11-02-2024 Bacteria identified Cx Nom (Bld) BLOOD CULTURE Reference No growth at 5 days ORDER COMMENTS: Blood Collection Site: Right Wrist [ S = SUSCEPTIBLE R = RESISTANT I = INTERMEDIATE S-DD = Susceptible-dose dependent NS = Non-susceptible NO = No Interpretation ] [facility] Comment on above: Performed By: #### L [id number] #### Hoistman: RELL AMAYA ([id number]) [facility] ([facility]) [address] [place] [address] Bacteria identified Cx Nom (Bld) BLOOD CULTURE Reference No growth at 5 days ORDER COMMENTS: Blood Collection Site: Left Wrist [ S = SUSCEPTIBLE R = RESISTANT I = INTERMEDIATE S-DD = Susceptible-dose dependent NS = Non-susceptible NO = No Interpretation ] [facility] Comment on above: Performed By: #### L AB753 #### Hoistman: RELL AMAYA ([id number]) [facility]) [address] [place] [address] Basic metabolic 1998 panelon 11-02-2024 Anion gap [Moles/Vol] 9 mmol/L 3 - 13 mmol/L [facility] Calcium [Mass/Vol] 7.5 mg/dL Low 8.8 - 10. 0 mg/dL [facility] Chloride [Moles/Vol] 109 mmol/L High 98 - 10 7 mmol/L [facility] CO2 [Moles/Vol] 19 mmol/L Low 23 - 31 mmol/L [facility] Creatinine [Mass/Vol] 0.5 mg/dL Low 0.57 - 1.11 mg/dL [facility] GFR/1.73 sq M.predicted (S/P/Bld) [Vol rate/Area] - PINF [facility] Glucose [Mass/Vol] 74 mg/dL Low 82 - 115 mg/dL [facility] Interpretation and review of laboratory results Abnormal [facility] Potassium [Moles/Vol] 4 mmol/L 3.5 - 5.1 mmol/L [facility] Sodium [Moles/Vol] 137 mmol/L 136 - 145 mmol/L [facility] Urea nitrogen [Mass/Vol] 5 mg/dL Low 9 - 23 mg/dL [facility] CBC W Auto Differential pane l (Bld)Ordered By: Cat Roque on 11-02-2024 Basophils (Bld) [#/Vol] 0.1 10*3/uL 0.0 - 0.2 10*3/uL [facility] Basophils/100 WBC (Bld) 1.4 % 0.0 - 2.0 % [facility] Eosinophils (Bld) [#/Vol] 0.4 10*3/uL 0.0 - 0.5 10*3/uL [facility] Eosinophils/100 WBC (Bld) 6.4 % High 0.0 - 6.0 % [facility] Erythrocyte distribution width (RBC) [Ratio] 19.3 % High 11.5 - 15.0 % [facility] Hematocrit (Bld) [Volume fraction] 28.7 % Low 35.0 - 47.0 % [facility] Hemoglobin (Bld) [Mass/Vol] 8.9 g/dL Low 11.7 - 16.0 g/dL [facility] Immature granulocytes (Bld) [#/Vol] 0 10*3/uL NINF - 0.1 10*3/uL [facility] Immature granulocytes/100 WBC (Bld) 0.3 % 0.0 - 2.0 % [facility] Interpretation and review of laboratory results Abnormal [facility] Lymphocytes (Bld) [#/Vol] 0.4 10*3/uL Low 1.0 - 4.3 10*3/uL [facility] Lymphocytes/100 WBC (Bld) 6.5 % Low 15.0 - 45.0 % [facility] MCH (RBC) [Entitic mass] 23.5 pg Low 26.0 - 34.0 pg [facility] MCHC (RBC) [Mass/Vol] 31 % 30.5 - 36.0 % [facility] MCV (RBC) [Entitic vol] 75.7 fL Low 77.0 - 99.0 fL [facility] Monocytes (Bld) [#/Vol] 0.7 10*3/uL 0.0 - 0.9 10*3/uL [facility] Monocytes/100 WBC (Bld) 10.8 % 5.0 - 13.0 % [facility] Neutrophils (Bld) [#/Vol] 4.9 10*3/uL 1.8 - 7.5 10*3/uL [facility] Neutrophils/100 WBC (Bld) 74.6 % 38.0 - 82.0 % [facility] Nucleated RBC/100 WBC (Bld) [Ratio] 0 % [facility] Platelet mean volume (Bld) [Entitic vol] 10.9 fL 9.0 - 12.7 fL [facility] Platelets (Bld) [#/Vol] 309 10*3/uL 140 - 440 10*3/uL [facility] RBC (Bld) [#/Vol] 3.79 10*6/uL Low 3.80 - 5.2 0 10*6/uL [facility] WBC (Bld) [#/Vol] 6.6 10*3/uL 3.6 - 10.7 10*3/uL [facility] CBC WITH AUTO DIFFERENTIALon 11-02-2024 Basophils (Bld) [#/Vol] 0.1 10*3/uL Normal 0.0-0.2 [facility] Comment on above: Performed By: #### L AB40 #### Hoistman: RELL AMAYA ([id number]) [facility] ([facility]) [address] [place] [address] Basophils/100 WBC (Bld) 1.4 % Normal 0.0-2.0 [facility] Comment on above: Performed By: #### L AB40 #### Hoistman: RELL AMAYA ([id number]) [facility]) [address] [place] [address] Eosinophils (Bld) [#/Vol] 0.4 10*3/uL Normal 0.0-0.5 [facility] Comment on above: Performed By: #### L AB40 #### Hoistman: RELL AMAYA ([id number]) [facility]) [address] [place] [address] Eosinophils/100 WBC (Bld) 6.4 % High 0.0-6.0 [facility] Comment on above: Performed By: #### L AB40 #### Hoistman: RELL AMAYA ([id number]) [facility]) [address] [place] [address] Erythrocyte distribution width (RBC) [Ratio] 19.3 % High 11.5-15.0 [facility] Comment on above: Performed By: #### L AB40 #### Hoistman: RELL AMAYA ([id number]) [facility]) [address] [place] [address] Hematocrit (Bld) [Volume fraction] 28.7 % Low 35.0-47.0 [facility] Comment on above: Performed By: #### L AB40 #### Hoistman: RELL AMAYA ([id number]) [facility]) [address] [place] [address] Hemoglobin (Bld) [Mass/Vol] 8.9 g/dL Low 11.7-16.0 [facility] Comment on above: Performed By: #### L AB40 #### Hoistman: RELL AMAYA ([id number]) [facility]) [address] [place] [address] IMMATURE GRANS % 0.3 % Normal 0.0-2.0 [facility] Comment on above: Performed By: #### L AB40 #### Hoistman: RELL AMAYA ([id number]) [facility] ([facility]) [address] [place] [address] IMMATURE GRANS ABSOLUTE 0.0 10*3/uL Normal <0.1 [facility] Comment on above: Performed By: #### L AB40 #### Hoistman: RELL AMAYA ([id number]) [facility]) [address] [place] [address] Lymphocytes (Bld) [#/Vol] 0.4 10*3/uL Low 1.0-4.3 [facility] Comment on above: Performed By: #### L AB40 #### Hoistman: RELL AMAYA ([phone]) [facility]) [address] [place] [address] Lymphocytes/100 WBC (Bld) 6.5 % Low 15.0-45.0 [facility] Comment on above: Performed By: #### L AB40 #### Hoistman: RELL AMAYA ([id number]) [facility] ([facility]) [address] [place] [address] MCH (RBC) [Entitic mass] 23.5 pg Low 26.0-34.0 [facility] Comment on above: Performed By: #### L AB40 #### Hoistman: RELL AMAYA ([phone]) [facility]) [address] [place] [address] MCHC 31.0 % Normal 30.5-36.0 [facility] Comment on above: Performed By: #### L AB40 #### Hoistman: RELL AMAYA ([phone]) [facility] ([facility]) [address] [place] [address] MCV (RBC) [Entitic vol] 75.7 fL Low 77.0-99.0 [facility] Comment on above: Performed By: #### L AB40 #### Hoistman: RELL AMAYA ([id number]) [facility] ([facility]) [address] [place] [address] [place] Monocytes (Bld) [#/Vol] 0.7 10*3/uL Normal 0.0-0.9 [facility] Comment on above: Performed By: #### L AB40 #### Hoistman: RELL AMAYA ([phone]) [facility] ([facility]) [address] [place] [address] Monocytes/100 WBC (Bld) 10.8 % Normal 5.0-13.0 [facility] Comment on above: Performed By: #### L AB40 #### Hoistman: RELL AMAYA ([phone]) [facility] ([facility]) [address] [place] [address] NEUTROPHILS ABSOLUTE 4.9 10*3/uL Normal 1.8-7.5 [facility] Comment on above: Performed By: #### L AB40 #### Hoistman: RELL AMAYA ([id number]) [facility] ([facility]) [address] [place] [address] Neutrophils/100 WBC (Bld) 74.6 % Normal 38.0-82.0 [facility] Comment on above: Performed By: #### L AB40 #### Hoistman: RELL AMAYA ([phone]) [facility] ([facility]) [address] [place] [address] NRBC 0.0 /100 WBCs Normal 0.0-2.0 [facility] Comment on above: Performed By: #### L AB40 #### Hoistman: RELL AMAYA ([phone]) [facility] ([facility]) [address] [place] [address] Platelet mean volume (Bld) [Entitic vol] 10.9 fL Normal 9.0-12.7 [facility] Comment on above: Performed By: #### L AB40 #### Hoistman: RELL AMAYA ([id number]) [facility] ([facility]) [address] [place] [address] Platelets (Bld) [#/Vol] 309 10*3/uL Normal 140-440 [facility] Comment on above: Performed By: #### L AB40 #### Hoistman: RELL AMAYA ([id number]) [facility] ([facility]) [address] [place] [address] RBC (Bld) [#/Vol] 3.79 10*6/uL Low 3.80-5.20 [facility] Comment on above: Performed By: #### L AB40 #### Hoistman: RELL AMAYA ([id number]) [facility] ([facility]) [address] [place] [address] WBC (Bld) [#/Vol] 6.6 10*3/uL Normal 3.6-10.7 [facility] Comment on above: Performed By: #### L AB40 #### Hoistman: RELL AMAYA ([id number]) [facility] ([facility]) [address] [place] [address] Culture, Blood (WB)on 2024 [facility] Comment on above: Performed By: #### L 300.3900, L503.6005, L100.0100, L300.4310, L500.4050, M200.1000 ####[facility] [id number] [place], [place], [id number] [facility] Comment on above: Performed By: #### M 200.1000 ####[facility] [id number] [place], [place], [id number] Laboratory - Chemistry and C hemistry - challengeon 11-02-2024 Glucose [Mass/Vol] 81 mg/dL 70 - 100 mg/dL [facility] Glucose [Mass/Vol] 115 mg/dL High 70 - 100 mg/dL [facility] Glucose [Mass/Vol] 75 mg/dL 70 - 100 mg/dL [facility] Glucose [Mass/Vol] 56 mg/dL Low 70 - 100 mg/dL [facility] Glucose [Mass/Vol] mg/dL Low 70 - 100 mg/dL [facility] Glucose [Mass/Vol] 217 mg/dL High 70 - 100 mg/dL [facility] Laboratory - Drug toxicology on 11-02-2024 Vancomycin [Mass/Vol] 11.8 ug/mL [facility] No Panel Informationon 11-02 Interpretation and review of laboratory results Normal [facility] Interpretation and review of laboratory results Abnormal [facility] Interpretation and review of laboratory results Normal [facility] Interpretation and review of laboratory results Abnormal [facility] Interpretation and review of laboratory results Abnormal [facility] Urine Cultureon 11-02-2024 [facility] Normal [facility] Comment on above: Performed By: #### L 400.0001, M100.2200 ####[facility] [address] [place], [address] VANCOMYCIN, RANDOMon 025 VANCOMYCIN 11.8 ug/mL Normal [facility] Comment on above: Result Comment: ORDE R COMMENTS: @@ With morning labs, can be drawn anytime EXCEPT within 2 hours of completed dose. @@ Toxicity is seen at concentrations >80-100 ug/mL Therapeutic (Peak) range: 20-40 Therapeutic (Trough) range: 5-10 Performed By: #### L AB40 #### Hoistman: RELL AMAYA ([id number]) [facility] ([address] Zinc, Plasma or Serumon ZINC,PLASMA/SER 41 ug/dL Low 44-115 [facility] Comment on above: Order Comment: Test( s) [id number], Plasma or Serumwas developed and its performance characteristicsdetermined by [facility]. It has not been cleared or approvedby the Food and Drug Administration. Result Comment: Dete ction Limit = 5Performed at: [facility] [address] [id number] Director: Elvie Fry MD, Phone: [phone] Performed By: #### L 3300.9900, L100.0500, L501.5200, L501.2300, L500.4050, L501.5000 ####[facility] [address] [place], [address] 30on 11-01-2024 30 Problem: Knowledge Deficit Goal: Patient/family/caregiver demonstrates understanding of disease process, treatment plan, medications, and discharge instructions 11/01/2024242 by Gissell Jean Baptiste RN Outcome: Progressing 11/01/2024133 by Gissell Jean Baptiste RN Outcome: Progressing Problem: Potential for Compromised Skin Integrity Goal: Skin Integrity is Maintained or Improved 11/01/2024242 by Gissell Jean Baptiste RN Outcome: Progressing 11/01/2024133 by Gissell Jean Baptiste RN Outcome: Progressing Problem: Potential for Compromised Skin Integrity Goal: Nutritional status is improving 11/01/2024242 by Gissell Jean Baptiste RN Outcome: Progressing Normal [facility] 30 Problem: Knowledge Deficit Goal: Patient/family/caregiver demonstrates understanding of disease process, treatment plan, medications, and discharge instructions Outcome: Progressing Problem: Potential for Compromised Skin Integrity Goal: Skin Integrity is Maintained or Improved Outcome: Progressing Goal: Nutritional status is improving Outcome: Progressing Problem: Urinary Incontinence Goal: Perineal skin integrity is maintained or improved Outcome: Progressing Normal [facility] ABO and Rh group Confirm Nom (Bld)on 11-01-2024 ABO group Nom (Bld) O [facility] D Ag Ql (RBC) Positive [facility] BASIC METABOLIC PANELon Anion gap [Moles/Vol] 6 mmol/L Normal 3-13 [facility] Comment on above: Performed By: #### L AB40 #### Hoistman: RELL AMAYA ([id number]) [facility] [address] [place] [address] Calcium [Mass/Vol] 7.7 mg/dL Low 8.8-10.0 [facility] Comment on above: Performed By: #### L AB40 #### Hoistman: RELL AMAYA ([id number]) [facility] [address] [place] [address] Chloride [Moles/Vol] 108 mmol/L High 98-107 [facility] Comment on above: Performed By: #### L AB40 #### Hoistman: RELL [id number]) [facility] ([facility]) [address] [place] [address] [place] CO2 [Moles/Vol] 21 mmol/L Low 23-31 [facility] Comment on above: Performed By: #### L AB40 #### Hoistman: RELL AMAYA ([id number]) [facility] [address] [place] [address] Creatinine [Mass/Vol] 0.49 mg/dL Low 0.57-1.11 [facility] Comment on above: Performed By: #### L AB40 #### Hoistman: RELL AMAYA ([phone]) [facility] ([facility]) [address] [place] [address] GLOMERULAR FILTRATION RATE ML/MIN/1.73 SQ M.PREDICTED >90.0 Normal >60.0 [facility] Comment on above: Result Comment: Calc ulation based on the Chronic Kidney Disease Epidemiology Collaboration (CKD-EPI) equation refit without adjustment for race Performed By: #### L AB40 #### Hoistman: RELL AMAYA ([id number]) [facility] [address] [place] [address] [place] Glucose [Mass/Vol] 90 mg/dL Normal 82-115 [facility] Comment on above: Performed By: #### L AB40 #### Hoistman: RELL AMAYA ([phone]) [facility] [address] [place] [address] [place] Potassium [Moles/Vol] 3.9 mmol/L Normal 3.5-5.1 [facility] Comment on above: Result Comment: [facility] potassium values may be up to 0.5 mmol/L lower than serum values. Performed By: #### L AB40 #### Hoistman: RELL AMAYA ([phone]) [facility] [address] [place] [address] Sodium [Moles/Vol] 135 mmol/L Low 136-145 [facility] Comment on above: Performed By: #### L AB40 #### Hoistman: RELL AMAYA ([phone]) [facility] ([facility]) [address] [place] [address] Urea nitrogen [Mass/Vol] 8 mg/dL Low 9-23 [facility] Comment on above: Performed By: #### L AB40 #### Hoistman: RELL AMAYA ([id number]) [facility] ([facility]) [address] [place] [address] BLOOD TYPE AND SCREEN GELon 11-01-2024 ABO GROUPING O Normal [facility] Comment on above: Performed By: #### L AB276 ####Hoistman: RELL AMAYA ([phone])[facility] ([facility])[address] [place] [address] RH TYPE IN BLOOD Positive Normal [facility] Comment on above: Performed By: #### L AB276 ####Hoistman: RELL AMAYA ([id number])[facility] ([facility])[address] [place] [address] Basic metabolic 1998 panelon 11-01-2024 Anion gap [Moles/Vol] 6 mmol/L 3 - 13 mmol/L [facility] Calcium [Mass/Vol] 7.7 mg/dL Low 8.8 - 10. 0 mg/dL [facility] Chloride [Moles/Vol] 108 mmol/L High 98 - 10 7 mmol/L [facility] CO2 [Moles/Vol] 21 mmol/L Low 23 - 31 mmol/L [facility] Creatinine [Mass/Vol] 0.49 mg/dL Low 0.57 - 1.11 mg/dL [facility] GFR/1.73 sq M.predicted (S/P/Bld) [Vol rate/Area] - PINF [facility] Comment on above: Calculation based on the Chronic Kidney Disease Epidemiology Collaboration (CKD-EPI) equation refit without adjustment for race Glucose [Mass/Vol] 90 mg/dL 82 - 115 mg/dL [facility] Interpretation and review of laboratory results Abnormal [facility] Potassium [Moles/Vol] 3.9 mmol/L 3.5 - 5.1 mmol/L [facility] Comment on above: Plasma potassium lazaro ues may be up to 0.5 mmol/L lower than serum values. Sodium [Moles/Vol] 135 mmol/L Low 136 - 145 mmol/L [facility] Urea nitrogen [Mass/Vol] 8 mg/dL Low 9 - 23 mg/dL [facility] Blood type and Crossmatch diamond rojo (Bld)on 11-01-2024 ABO group Nom (Bld) O [facility] Blood group antibody screen GEL Ql Negative [facility] D Ag Ql (RBC) Positive [facility] CBC W Auto Differential pane l (Bld)Ordered By: Kenny Gaines on 11-01-2024 Basophils (Bld) [#/Vol] 0.1 10*3/uL 0.0 - 0.2 10*3/uL [facility] Basophils/100 WBC (Bld) 1 % 0.0 - 2.0 % [facility] Eosinophils (Bld) [#/Vol] 0.3 10*3/uL 0.0 - 0.5 10*3/uL [facility] Eosinophils/100 WBC (Bld) 4.3 % 0.0 - 6.0 % [facility] Erythrocyte distribution width (RBC) [Ratio] 17.8 % High 11.5 - 15.0 % [facility] Hematocrit (Bld) [Volume fraction] 21 % Low 35.0 - 47.0 % [facility] Hemoglobin (Bld) [Mass/Vol] 6.5 g/dL Critically low 11.7 - 16.0 g/dL [facility] Immature granulocytes (Bld) [#/Vol] 0 10*3/uL NINF - 0.1 10*3/uL [facility] Immature granulocytes/100 WBC (Bld) 0.3 % 0.0 - 2.0 % [facility] Interpretation and review of laboratory results Abnormal [facility] Lymphocytes (Bld) [#/Vol] 0.6 10*3/uL Low 1.0 - 4.3 10*3/uL [facility] Lymphocytes/100 WBC (Bld) 9.3 % Low 15.0 - 45.0 % [facility] MCH (RBC) [Entitic mass] 22.1 pg Low 26.0 - 34.0 pg [facility] MCHC (RBC) [Mass/Vol] 31 % 30.5 - 36.0 % [facility] MCV (RBC) [Entitic vol] 71.4 fL Low 77.0 - 99.0 fL [facility] Monocytes (Bld) [#/Vol] 0.9 10*3/uL 0.0 - 0.9 10*3/uL [facility] Monocytes/100 WBC (Bld) 14.3 % High 5.0 - 13.0 % [facility] Neutrophils (Bld) [#/Vol] 4.4 10*3/uL 1.8 - 7.5 10*3/uL [facility] Neutrophils/100 WBC (Bld) 70.8 % 38.0 - 82.0 % [facility] Nucleated RBC/100 WBC (Bld) [Ratio] 0 % [facility] Platelet mean volume (Bld) [Entitic vol] 11.1 fL 9.0 - 12.7 fL [facility] Platelets (Bld) [#/Vol] 271 10*3/uL 140 - 440 10*3/uL [facility] RBC (Bld) [#/Vol] 2.94 10*6/uL Low 3.80 - 5.2 0 10*6/uL [facility] WBC (Bld) [#/Vol] 6.2 10*3/uL 3.6 - 10.7 10*3/uL The [facility] CBC WITH AUTO DIFFERENTIALon 11-01-2024 Basophils (Bld) [#/Vol] 0.1 10*3/uL Normal 0.0-0.2 [facility] Comment on above: Performed By: #### L [id number] #### Hoistman: RELL [id number]) [facility] ([facility]) [address] [place] [address] Basophils/100 WBC (Bld) 1.0 % Normal 0.0-2.0 [facility] Comment on above: Performed By: #### L [id number] #### Hoistman: RELL [id number]) [facility] ([facility]) [address] [place] [address] Eosinophils (Bld) [#/Vol] 0.3 10*3/uL Normal 0.0-0.5 [facility] Comment on above: Performed By: #### L [id number] #### Hoistman: RELL [id number]) [facility]) [address] [place] [address] Eosinophils/100 WBC (Bld) 4.3 % Normal 0.0-6.0 [facility] Comment on above: Performed By: #### L [id number] #### Hoistman: RELL AMAYA ([id number]) [facility]) [address] [place] [address] Erythrocyte distribution width (RBC) [Ratio] 17.8 % High 11.5-15.0 [facility] Comment on above: Performed By: #### L [id number] #### Hoistman: RELL AMAYA ([id number]) [facility]) [address] [place] [address] Hematocrit (Bld) [Volume fraction] 21.0 % Low 35.0-47.0 [facility] Comment on above: Performed By: #### L [id number] #### Hoistman: RELL AMAYA ([phone]) [facility]) [address] [place] [address] Hemoglobin (Bld) [Mass/Vol] 6.5 g/dL Critically low 11.7-16.0 [facility] Comment on above: Performed By: #### L [id number] #### Hoistman: RELL AMAYA ([id number]) [facility]) [address] [place] [address] IMMATURE GRANS % 0.3 % Normal 0.0-2.0 [facility] Comment on above: Performed By: #### L [id number] #### Hoistman: RELL AMAYA ([id number]) [facility]) [address] [place] [address] IMMATURE GRANS ABSOLUTE 0.0 10*3/uL Normal <0.1 [facility] Comment on above: Performed By: #### L [id number] #### Hoistman: RELL AMAYA ([id number]) [facility]) [address] [place] [address] [place] Lymphocytes (Bld) [#/Vol] 0.6 10*3/uL Low 1.0-4.3 [facility] Comment on above: Performed By: #### L [id number] #### Hoistman: RELL AMAYA ([id number]) [facility]) [address] [place] [address] Lymphocytes/100 WBC (Bld) 9.3 % Low 15.0-45.0 [facility] Comment on above: Performed By: #### L [id number] #### Hoistman: RELL AMAYA ([id number]) [facility] ([facility]) [address] [place] [address] MCH (RBC) [Entitic mass] 22.1 pg Low 26.0-34.0 [facility] Comment on above: Performed By: #### L [id number] #### Hoistman: RELL AMAYA ([id number]) [facility]) [address] [place] [address] MCHC 31.0 % Normal 30.5-36.0 [facility] Comment on above: Performed By: #### L [id number] #### Hoistman: RELL AMAYA ([id number]) [facility]) [address] [place] [address] MCV (RBC) [Entitic vol] 71.4 fL Low 77.0-99.0 [facility] Comment on above: Performed By: #### L [id number] #### Hoistman: RELL AMAYA ([id number]) [facility]) [address] [place] [address] Monocytes (Bld) [#/Vol] 0.9 10*3/uL Normal 0.0-0.9 [facility] Comment on above: Performed By: #### L [id number] #### Hoistman: RELL AMAYA ([id number]) [facility]) [address] [place] [address] Monocytes/100 WBC (Bld) 14.3 % High 5.0-13.0 [facility] Comment on above: Performed By: #### L [id number] #### Hoistman: RELL AMAYA ([id number]) [facility] ([facility]) [address] [place] [address] NEUTROPHILS ABSOLUTE 4.4 10*3/uL Normal 1.8-7.5 [facility] Comment on above: Performed By: #### L [id number] #### Hoistman: RELL AMAYA ([id number]) [facility] ([facility]) [address] [place] [address] Neutrophils/100 WBC (Bld) 70.8 % Normal 38.0-82.0 [facility] Comment on above: Performed By: #### L [id number] #### Hoistman: RELL AMAYA ([id number]) [facility] ([facility]) [address] [place] [address] NRBC 0.0 /100 WBCs Normal 0.0-2.0 [facility] Comment on above: Performed By: #### L [id number] #### Hoistman: RELL AMAYA ([id number]) [facility] ([facility]) [address] [place] [address] Platelet mean volume (Bld) [Entitic vol] 11.1 fL Normal 9.0-12.7 [facility] Comment on above: Performed By: #### L [id number] #### Hoistman: RELL AMAYA ([id number]) [facility] ([facility]) [address] [place] [address] [place] Platelets (Bld) [#/Vol] 271 10*3/uL Normal 140-440 [facility] Comment on above: Performed By: #### L [id number] #### Hoistman: RELL AMAYA ([id number]) [facility] ([facility]) [address] [place] [address] [place] RBC (Bld) [#/Vol] 2.94 10*6/uL Low 3.80-5.20 [facility] Comment on above: Performed By: #### L [id number] #### Hoistman: RELL AMAYA ([id number]) [facility] ([facility]) [address] [place] [address] WBC (Bld) [#/Vol] 6.2 10*3/uL Normal 3.6-10.7 [facility] Comment on above: Performed By: #### L [id number] #### Hoistman: RELL AMAYA ([id number]) [facility] ([facility]) [address] [place] [address] Consulton 11-01-2024 Consult Nutrition Assessment Type and Reason for Visit: Initial, Positive Nutrition Screen, Consult (Gerhard nutritional subscore is less than equal to 2, poor po intake/appetite 5 or more days, wound, + 3 MST) Nutrition Recommendations/Plan: Patient is DNR:CC. Palliative care is following: Continue with regular diet. Consider easy to chew diet however pt mainly prefers soft foods. Per MNT protocol will send vanilla Ensure Plus HP at lunch and vanilla magic cup at dinner. PICC line removed due to infection. Per nursing facility paperwork, it appears patient was receiving TPN. She has an open abdominal fistula. Will monitor goals of care and appropriateness to resume TPN. Monitor weight, labs, I/O, skin assessment, BM, and overall nutritional status. RD will follow up. Malnutrition Assessment: Malnutrition Status: Severe malnutrition Context: Chronic Illness Findings of the 6 clinical characteristics of malnutrition: Energy Intake: No significant decrease in energy intake (Per nursing facility paperwork, patient was on TPN and mechanical soft, GI soft diet. Patient reports poor po intake over past couple of weeks. 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 female with past medical history hyperlipidemia, neuropathy, DM2, partial right foot amputation. Patient was sent from [facility] to [facility] for concerning findings on CT abdominal scan. Patient initially was sent to nursing home facility from [facility] for a partial amputation of her right foot. She had osteomyelitis. Patient was discharged on Zosyn and had a right PICC line placed. While in nursing home facility she completed her course of Zosyn for foot wound. That she then contracted pneumonia or started on IV Rocephin. That ended last week. Patient did have a elevated white count and positive blood cultures so they sent her to the hospital. Patient was found to have 2 abdominal abscesses and possible osteomyelitis. Patient currently has a sacral wound, left lower quadrant fistula draining purulent drainage, two left heel wounds and healing right partial foot amputation. She was started on antibiotics and admitted. CT A/P showed no abscess, mild bowel wall thickening and inflammation in the splenic flecture and fistulous tract in the LLQ. She required blood tx 11/01 for hb 6.5. Palliative care is following- current code status: DNR:SLIM. ID and wound care consulted. PICC line removed. RD spoke with patient this afternoon. She is hard of hearing. Appetite and po intake have been poor for the past couple of weeks. Patient reports only taking 4-5 bites as nothing tastes good. She is edentulous. She did not like that nursing facility cut her food into small pieces. She does not eat corn or beans as goes thru her. She prefers things like applesauce, ice cream, jello, soda, spaghetti, mac and cheese, chicken noodle soup. She drinks small cup of Boost once to twice per day. Does not like chocolate as goes right thru her. 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 She mentions receiving an expensive yellowish clear vitamin at facility. Per review of SNF paperwork, patient was on TPN as well as oral diet (mechanical soft, GI soft, and liberal consistent CHO). She reports her weight was 73# x 3 days. Her weight was 110#-120# x 8-9 months ago and involuntarily lost weight. Estimated Daily Nutrient Needs: Energy Requirements Based On: Kcal/kg Weight Used for Energy Requirements: Admission Weight for Energy Calculation (kg): 33.1 kg Total Energy Requirements (kcals/day): 2750-5055 kcals per day (32-38) Weight Used for Protein Requirements: Admission Weight in Kg Used for Protein Requirements: 33.1 kg Estimated Total Protein (g/day): 40-50 gm per day (1.2-1.5) Estimated Daily Total Fluid (ml/day): Per MD Nutrition Related Findings: Gerhard = 14, no edema, I/O: +240 (since admit), room service selective, CHER-AE HEIGHTS, oriented/disoriented Wound Type: Wound Consult Pending, Multiple (Per woud care: LLQ abdomen fistula - MASD d/t fecal incontinence; Rt foot NHSW (delayed closure); Rt heel unstageable pressure injury (POA); Lt calf venous ulcer (fat); Lt heel stage 3 pressure injury (POA); Sacral unstageable pressure injury (POA):) BMP: Recent Labs 10/31/24 1425 11/01/24 0037 NA 135* 135* K 4.0 3.9 CL 105 108* CO2 21* 21* BUN 9 8* CREATININE 0.46* 0.49* GLUCOSE 112 90 CALCIUM 7.6* 7.7* HEPATIC: Recent Labs 10/31/24 1425 AST 52* ALT (more content not included)... Normal [facility] Consult Palliative Care Init ial Consult Chief Complaint: Yoko Emanuel is a 69 y.o. female with chief complaint of wound pain. Palliative Care is actively following. Assessment/Plan Goals of care Yoko Emanuel retains capacity for medical decision-making -legal surrogate decision maker is Sean naidu ( ) -goals of care include: 1) obtain medical information prior to decision-making, expresses due to weakness she is doubtful she would survive surgery however is open to other treatments if needed. 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 - 10/31/24: CT A/P report reviewed Wounds with osteomyelitis/bacteremia - wound team on board, their initial consult from today appreciated with pictures - ID consulted - per primary currently on IV abx - PICC line she had in RUE has been removed - 10/31/24 blood cultures positive Wound pain/B feet pain - will INCREASE gabapentin to 300mg twice per day, upon review from [facility] looks like was 300mg three times per day - stop percocet - add oxycodone 5mg PO q4h prn, monitor needs Anemia - hgb today 6.5, received blood Protein calorie malnutrition - 10/31/24: albumin low at 1.7 - her pain has limited her wanting to eat, pain overall improved since being here Risk for constipation - last BM yesterday - denies constipation - due to prn opiates and immobility - has prn polyethylene glycol Debility - PT/OT when able - came from [facility] prior to [facility] Palliative Care Encounter -Code Status: DNR-CC - Ongoing counseling of patient and family regarding diagnoses of wound, Determining prognosis in serious illness of wounds - will continue treatment including oxycodone and gabapentin - assessed patient or surrogate's understanding of medical condition, addressed goals of care pertinent to the condition and communicated this to the medical team Discharge planning: Not ready for discharge due to ongoing medical work-up/critical illness Patient meets criteria for general inpatient hospice care: No Palliative Care IDT members involved: None--refuses SCC, aware is available Discussed the plan of care with the other interdisciplinary team (IDT) members of the Palliative Care and Hospice teams and Patient, Primary Attending, and Floor Nurse. Subjective: Subjective/Events Yoko Emanuel is a 69 y.o. female transferred to [facility] from [facility] for CT demonstrating abdominal fistula. This is her 3rd hospitalization in few months, had been at [facility] for partial R foot amputation, positive osteomyelitis with IV abx had completed abx at [facility] ([facility], [place]), developed PNA and treated for this, at facility with positive blood cultures and elevated WBC to [place] [facility]. CT A/P revealing abdominal fistula prompting transfer. Since at [facility], repeat CT A/P completed, pending ID and wound consults. Adamant she would not want surgical interventions prompting palliative care consult for goals of care Patient VERY CHER-AE HEIGHTS! While at assisted hospice had been consulted but she is not ready for that yet. Introduced palliative care services. Admits to B feet pain, no CP, abdominal pain, breathing easy no nausea, vomiting, appetite fair last BM yesterday Pain Assessment Location: B feet Description: pulling Frequency:Daily Duration: month(s) Alleviating Factors: pain medication Exacerbating Factors: unable to associate with any factor Effect:Change in Function and Interference with Activities Palliative Care Assessments: Goals of care: Continue Current Management Advanced Directives: DNR Functional Assessment: PPS 60% amb reduced; can't do normal housework/sig disease; occ assistance; normal or reduced intake; full LOC or confusion Prognosis: uncertain at this time Spiritual Assessment: No spiritual distress identified Bereavement and Grief: Grief Issues Not Identified PDMP/OARRS Reviewed: Yes-no reportable medications Social history: Marital status: Children: 2 adult child(alyson)--sons Living status: assisted Work history: retired status: No [employer] lillian: Unknown ROS: See palliative care ROS/ESAS below; All other systems were reviewed and are negative. [place] Symptom Assessment Score [place] Score Pain Score (if non-verbal, add .FLACC below) 3 Tiredness Score 0 Nausea Score 0 Depression Score 0 Anxiety Score 0 Drowsiness Score 0 Anorexia Score (0= eating well, 10= not eating) 5 Wellbeing Score (10= worst sense of well-being) 5 Constipation 1 Dyspnea Score (0= no shortness of breath) 0 Family Meeting: Participants: patient Fam (more content not included)... Normal [facility] Consult [facility] Wound Care CONSULT Note Yoko Emanuel AGE: 69 y.o. GENDER: female : 1955 Subjective: HISTORY of PRESENT ILLNESS HPI Yoko Emanuel is a 69 y.o. female who presents for a wound consult. HPI: 69 y.o. female with past medical history below who presents with abdominal abscess. Patient was sent from [facility] to [facility] for concerning findings on CT abdominal scan. Patient initially was sent to nursing home facility from [facility] for a partial amputation of her right foot. She had osteomyelitis. Patient was discharged on Zosyn and had a right PICC line placed. While in nursing home facility she completed her course of Zosyn for foot wound. That she then contracted pneumonia or started on IV Rocephin. That ended last week. Patient did have a elevated white count and positive blood cultures so they sent her to the hospital. Patient was found to have 2 abdominal abscesses and possible osteomyelitis. Patient currently has a sacral wound, left lower quadrant fistula draining purulent drainage, two left heel wounds and healing right partial foot amputation. Wound Care consulted for left heel, right foot, sacral ulcer and abdominal fistula. Patient is resting in bed laying on right side. Patient adamantly refused wound care assessment of left calf and right foot. Topical dressing applied to abdomen as patient refused ostomy pouch application today, all other LE dressings CDI. PAST MEDICAL HISTORY Medical History[1] PAST SURGICAL HISTORY Surgical History[2] FAMILY HISTORY Family History[3] SOCIAL HISTORY Social History[4] ALLERGIES Allergies[5] MEDICATIONS Medications Ordered Prior to Encounter[6] REVIEW OF SYSTEMS Pertinent items are noted in HPI. Objective: BP (!) 89/38 (BP Location: Left arm, Patient Position: Sitting) Pulse 80 Temp 36.6 ?C (97.8 ?F) (Temporal) Resp 16 Ht 4' 9.01" (1.448 m) Wt 73 lb (33.1 kg) SpO2 94% BMI 15.79 kg/m? PHYSICAL EXAM General appearance: in no apparent distress, in no respiratory distress and acyanotic, alert, and moderately ill, thin appearing Skin: warm and dry Pulmonary: Normal effort, no respiratory distress, no cyanosis Abdomen: LLQ abdomen - soft, tender and reddened with erosion of tissue d/t large fistula GI contents/brown liquid stool 11/01/24 Extremities: right amp site - 4.5 x 7.0cm - wound bed with large pink granular tissue and small moist slough, cydney wound tissue intact with dried exudate. Dressing C/D/I 10/31/24 Right heel - 4.0 x 4.5 x utd(cm) - wound bed with large black eschar and scant pink granular tissue noted along wound edges, cydney wound tissue intact. Dressing CDI 10/31/24 Left post calf - 4.0 x 1.0 x utd(cm) - wound bed with large pink granular tissue and small moist adherent slough, cydney wound tissue intact, with small serosang drainage. Dressing CDI Left heel - 1.5 x 0.8 x 0.1cm - blanchable dark pink tissue with small open wound with thin yellow slough and pink granular tissue noted, scant serosang drainage. Dressing CDI 10/31/24 Sacrum - 4.0 x 2.0 x utd(cm) - wound bed with large adherent yellow/brown slough obscuring tissue level of involvement. Cydney wound tissue intact, slow to nadia, small serosang drainage. Old foam dressing completely saturated with urine, pure wick in place leaking large amounts of urine. 11/01/24 LABS CBC: Lab Results Component Value Date WBC 6.2 11/01/2024 HGB 9.3 (L) 11/01/2024 HCT 29.5 (L) 11/01/2024 MCV 71.4 (L) 11/01/2024 PLT 271 11/01/2024 BMP: Lab Results Component Value Date NA 135 (L) 11/01/2024 K 3.9 11/01/2024 CL 108 (H) 11/01/2024 CO2 21 (L) 11/01/2024 BUN 8 (L) 11/01/2024 CREATININE 0.49 (L) 11/01/2024 PT/INR: No results found for: "PROTIME", "INR" Prealbumin: No results found for: "PREALBUMIN" Albumin:No components found for: "LABALBU" Sed Rate: Lab Results Component Value Date SEDRATE 67 (H) 10/31/2024 Micro: No components found for: "BC" Assessment/Plan: Nursing staff to perform dressing change: LLQ abdomen fistula - MASD d/t fecal incontinence: -cleanse with NS, apply Maxorb, ABD(s) - change BID/PRN Right foot NHSW (delayed closure): -cleanse wit NS, apply Maxorb, ABD, kerlix daily/PRN Right heel unstageable pressure injury (POA): -cleanse with NS, apply betadine, ABD, kerlix daily/PRN Left calf venous ulcer (fat): -cleanse with NS, apply adaptic, ABD, kerlix daily/PRN Left heel stage 3 pressure injury (POA): -cleanse with NS, apply mesalt, ABD, kerlix daily/PRN Sacral unstageable pressure injury (POA): -cleanse with soap and water, apply ET mix TID and PRN, leave LABOR 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 Normal [facility] Consult [facility] - Infectious Diseases Attending Consult Note Reason for Consult: Possible infected PICC line, multiple wounds, abdominal abscess/fistula, possible pelvic oseomyelitis on previous imaging. History of Present Illness: 69 yo F, transferred form [facility] for evaluaiton of abdominal fistula( apparently chronic, patient has been managing it for 5 years), as well as concern for PICC related infection, bacteremia, elevated WBC,, when she was transferred form [facility] to OSH 3 days ago. She reports having R partial foot amputation for gangrene few months ack, on 08/17, and just finished prolonged IV antibiotic course. Afterwards, treated at [facility] for Pneumonia, and afterwards ? PICC-related infeciton. She denied pain to RUE site, or streaking, but admitted it wasn't cared for properly. Denied feer chills and malaise. Hermain issue remains pain to R foot and NWB status, though she believes wound is healing. Also developed several pressure ulcers to L heel, jules and sacral area. OSH records([facility]) not available and jani scant OR notes form admission at [facility] in her chart. On intake here, BC obtained + Klebsiella pneumoniae, and PICC was removed, catheter tip also + same pathogen. She is currentlyon Zosyn and ID consulted. Imaging also mentioned fistula to abdomen, she is not inclined to hae additional surgery for this issue at the moment. She denies feer, chills, malaise. + mild productive cough, improved from at week. Denies N/V/D. No ack pain. Patient is h kevin of hearing. NKDA Past Medical History: Medical History[1] Past Surgical History: Surgical History[2] Current Medications: Current Medications[3] Allergies: Allergies[4] Social History: Social History Socioeconomic History Marital status: Spouse name: Not on file Number of children: Not on file Years of education: Not on file Highest education level: Not on file Occupational History Not on file Tobacco Use Smoking status: Former Current packs/day: 0.00 Average packs/day: 2.0 packs/day for 65.0 years (130.0 ttl pk-yrs) Types: Cigarettes Start date: 1959 Quit date: 05/2024 Years since quittin.4 Smokeless tobacco: Never Substance and Sexual Activity Alcohol use: Never Drug use: Never Sexual activity: Not on file Other Topics Concern Not on file Social History Narrative Not on file Social Drivers of Health Financial Resource Strain: Not on file Food Insecurity: No Food Insecurity (10/31/2024) Hunger Vital Sign Worried About Running Out of Food in the Last Year: Never true Ran Out of Food in the Last Year: Never true Transportation Needs: No Transportation Needs (10/31/2024) PRAPARE - Transportation Lack of Transportation (Medical): No Lack of Transportation (Non-Medical): No Physical Activity: Not on file Stress: Not on file Social Connections: Not on file Intimate Partner Violence: Not At Risk (10/31/2024) Humiliation, Afraid, Rape, and Kick questionnaire Fear of Current or Ex-Partner: No Emotionally Abused: No Physically Abused: No Sexually Abused: No Housing Stability: Low Risk (10/31/2024) Housing Stability Vital Sign Unable to Pay for Housing in the Last Year: No Number of Times Moved in the Last Year: 1 Homeless in the Last Year: No Family History: Family History[5] Review of Systems: Review of Systems Constitutional: Negative for chills, fatigue and fever. Respiratory: Positive for cough. Negative for shortness of breath. Cardiovascular: Negative for chest pain and leg swelling. Gastrointestinal: Negative. Musculoskeletal: Negative for back pain and myalgias. Skin: Positive for wound. Neurological: Positive for numbness. Negative for weakness. Hematological: Does not bruise/bleed easily. Vitals: Patient Vitals for the past 24 hrs: BP Temp Temp src Pulse Resp SpO2 Height Weight 11/01/24 0805 (!) 89/38 36.6 ?C (97.8 ?F) Temporal 80 16 94 % -- -- 11/01/24 0706 -- -- -- -- -- -- 1.448 m (4' 9.01") -- 11/01/24 0705 (!) 91/50 36 ?C (96.8 ?F) Temporal 73 18 94 % -- -- 11/01/24 0442 (!) 97/41 (!) 35.8 ?C (96.4 ?F) Temporal 78 16 100 % -- -- 11/01/24 0423 (!) 92/44 36 ?C (96.8 ?F) Temporal 78 16 93 % -- -- 10/31/24 2019 104/52 36.2 ?C (97.2 ?F) Temporal 88 16 92 % -- -- 10/31/24 1132 -- -- -- -- -- -- 1.448 m (4' 9") 33.1 kg (73 lb) 10/31/24 1032 (!) 99/46 36.7 ?C (98 ?F) Temporal 94 18 94 % -- -- Physical Exam: Physical Exam Vitals reviewed. Constitutional: General: She is not in acute distress. Appearance: She is ill-appearing (chronic, frail, and hard of hearing). She is not toxic-appearing. HENT: Mouth/Throat: Mouth: Mucous membranes are moist. Pharynx: No oropharyngeal exudate (ederntulous). Eyes: General: Scleral icterus present. Extraocular Movements: Extraocular movements intact. Cardiovascular: Rate and Rhythm: Normal rate. Heart sounds: No murmur heard. Pulmonary: (more content not included)... Normal [facility] HEMOGLOBIN AND HEMATOCRIT, B LOODon 11-01-2024 Hematocrit (Bld) [Volume fraction] 29.5 % Low 35.0-47.0 [facility] Comment on above: Order Comment: Recom mend 1 hour post transfusion Performed By: #### L [id number] #### Hoistman: RELL AMAYA ([id number]) [facility] [address] [place] [address] Hemoglobin (Bld) [Mass/Vol] 9.3 g/dL Low 11.7-16.0 [facility] Comment on above: Order Comment: Recom mend 1 hour post transfusion Performed By: #### L [id number] #### Hoistman: RELL AMAYA ([phone]) [facility] [address] [place] [address] Hemoglobin (Bld) [Mass/Vol]O rdered By: Jose Angel Haley on 11-01-2024 Hematocrit (Bld) [Volume fraction] 29.5 % Low 35.0 - 47.0 % [facility] Interpretation and review of laboratory results Abnormal [facility] - Chemistry and C hemistry - challengeon 11-01-2024 Glucose [Mass/Vol] 104 mg/dL High 70 - 100 mg/dL [facility] Glucose [Mass/Vol] 78 mg/dL 70 - 100 mg/dL [facility] Glucose [Mass/Vol] 117 mg/dL High 70 - 100 mg/dL [facility] Glucose [Mass/Vol] 101 mg/dL High 70 - 100 mg/dL [facility] - Drug toxicology on 11-01-2024 Vancomycin trough [Mass/Vol] 17.3 ug/mL [facility] - Hematology and Cell countsOrdered By: Jose Angel Haley on 11-01-2024 Hemoglobin (Bld) [Mass/Vol] 9.3 g/dL Low 11.7 - 16.0 g/dL [facility] No Panel Informationon 11-01 Interpretation and review of laboratory results Abnormal [facility] Performed by: [address] [address] CLIA ID: [id number] [facility] Interpretation and review of laboratory results Normal [facility] Performed by: [address] [address] CLIA ID: [id number] [facility] Interpretation and review of laboratory results Abnormal [facility] Performed by: [address] [address] CLIA ID: [id number] [facility] Interpretation and review of laboratory results Abnormal [facility] Performed by: [address] [address] CLIA ID: [id number] [facility] Blood Expiration Date [id number] [facility] Crossmatch interpretation COMP [facility] Dispense Status Transfused [facility] Product Blood Type 5100 [facility] PRODUCT CODE [id number] [facility] ABO O [facility] Number [id number] [facility] RH Positive [facility] Volume 300 mL [facility] No Panel InformationOrdered By: Cynthia Cedillo on 11-01-2024 Interpretation and review of laboratory results Abnormal [facility] Klebsiella pneumoniae Detected Abnormal Not Detected [facility] Methodology: Multipl ex PCR The sMedio BCID panel can detect the following organisms: E. faecalis, E. faecium, Staphylococcus spp., S. aureus, S. epidermidis, S. lugdunensis, Streptococcus spp., S. pyogenes (Group A), S. agalactiae (Group B), S. pneumoniae, A. baumannii complex, B. fragilis, H. influenzae, N. meningitidis, P. aeruginosa, S. maltophilia, Enterobacterales, E. cloacae complex, E. coli, K. aerogenes, K. oxytoca, K. pneumoniae, Proteus spp., Salmonella spp., S. marcescens, C. albicans, C. auris, C. glabrata, C. krusei, C. parapsilosis, C. tropicalis, and C. neoformans/gattii. The following antimicrobial resistance genes are reported if appropriate organisms are detected: mecA/C and Aaron/B. The following antimicrobial resistance genes are reported if detected and the appropriate organisms are detected: CTX-M, IMP, KPC, NDM, OXA-48-like, VIM, and mcr-1. [facility] VANCOMYCIN, AUC TIMED DOSING on 11-01-2024 VANCOMYCIN, AUC 17.3 ug/mL Normal [facility] Comment on above: Result Comment: SHASTA Peralta COMMENTS: Please draw random level at least >2 hours after the end of the last vancomycin infusion, or 30-minutes before next infusion. Toxicity is seen at concentrations >80-100 ug/mL Therapeutic (Peak) range: 20-40 Therapeutic (Trough) range: 5-10 Performed By: #### L [id number] #### Hoistman: RELL AMAYA ([phone]) [facility] [address] [place] [address] Vancomycin trough [Mass/Vol] on 11-01-2024 Toxicity is seen at concentrations >80-100 ug/mL Therapeutic (Peak) range: 20-40 Therapeutic (Trough) range: 5-10 [facility] 30on 10-31-2024 30 Problem: Knowledge Deficit Goal: Patient/family/caregiver demonstrates understanding of disease process, treatment plan, medications, and discharge instructions Outcome: Progressing Problem: Potential for Compromised Skin Integrity Goal: Skin Integrity is Maintained or Improved Outcome: Progressing Goal: Nutritional status is improving Outcome: Progressing Problem: Urinary Incontinence Goal: Perineal skin integrity is maintained or improved Outcome: Progressing Normal [facility] Abdomen/Pelvis W IV Cont ONL Yon 10-31-2024 Abdomen/Pelvis W IV Cont ONLY Normal [facility] BLOOD CULTUREon 10-31-2024 Bacteria identified Cx Nom (Bld) BLOOD CULTURE (AA) Reference KLEBSIELLA PNEUMONIAE Klebsiella pneumoniae (AA) This is an edited result. Previous organism was Gram-negative bacilli on 11/01/2024 at 0751 EDT. ORDER COMMENTS: Blood Collection Site: Right Forearm Organism: KLEBSIELLA PNEUMONIAE Antibiotic IRA Interpretation Status Ampicillin R F Ampicillin / Sulbactam 4 ug/ml S F Aztreonam <=1 ug/ml S F Cefazolin 2 ug/ml S F Cefepime <=0.12 ug/ml S F Ceftriaxone <=0.25 ug/ml S F Ciprofloxacin <=0.06 ug/ml S F Ertapenem <=0.12 ug/ml S F Gentamicin <=1 ug/ml S F Levofloxacin <=0.12 ug/ml S F Meropenem <=0.25 ug/ml S F Piperacillin / Tazobactam <=4 ug/ml S F Trimethoprim / Sulfamethoxazole <=20 ug/ml S F [ S = SUSCEPTIBLE R = RESISTANT I = INTERMEDIATE S-DD = Susceptible-dose dependent NS = Non-susceptible NO = No Interpretation ] Normal [facility] Comment on above: Performed By: #### L [id number] #### Hoistman: RELL AMAYA ([phone]) [facility] ([facility]) [address] [place] [address] Bacteria identified Cx Nom (Bld) BLOOD CULTURE (AA) Reference KLEBSIELLA PNEUMONIAE Klebsiella pneumoniae (AA) For identification and/or sensitivity, refer to culture collected on: 10/31/24 at 1425([id number]) This is an edited result. Previous organism was Gram-negative bacilli on 11/02/2024 at 0526 EDT. ORDER COMMENTS: Blood Collection Site: Left Hand [ S = SUSCEPTIBLE R = RESISTANT I = INTERMEDIATE S-DD = Susceptible-dose dependent NS = Non-susceptible NO = No Interpretation ] Normal [facility] Comment on above: Performed By: #### L [id number] #### Hoistman: RELL AMAYA ([id number]) [facility] ([facility]) [address] [place] [address] BLOOD CULTURE IDENTIFICATION - AEROBICon 10-31-2024 BLOOD CULTURE IDENTIFICATION - AEROBIC KLEBSIELLA PNEUMONIAE, BLOOD (A) Reference Detected Not Detected ORDER COMMENTS: (A) Methodology: Multiplex PCR The MindFuseD panel can detect the following organisms: E. faecalis, E. faecium, Staphylococcus spp., S. aureus, S. epidermidis, S. lugdunensis, Streptococcus spp., S. pyogenes (Group A), S. agalactiae (Group B), S. pneumoniae, A. baumannii complex, B. fragilis, H. influenzae, N. meningitidis, P. aeruginosa, S. maltophilia, Enterobacterales, E. cloacae complex, E. coli, K. aerogenes, K. oxytoca, K. pneumoniae, Proteus spp., Salmonella spp., S. marcescens, C. albicans, C. auris, C. glabrata, C. krusei, C. parapsilosis, C. tropicalis, and C. neoformans/gattii. The following antimicrobial resistance genes are reported if appropriate organisms are detected: mecA/C and Aaron/B. The following antimicrobial resistance genes are reported if detected and the appropriate organisms are detected: CTX-M, IMP, KPC, NDM, OXA-48-like, VIM, and mcr-1. [facility] Comment on above: Performed By: #### L [id number] #### Hoistman: RELL AMAYA ([id number]) [facility] ([facility]) [address] [place] [address] Bedside Glucoseon 10-31-2024 FINGERSTICK GLU 209 mg/dL High 74-106 [facility] Comment on above: Result Comment: MARIE PUMAENT OF PATIENT CARE PER NURSING PROTOCOL Performed By: #### L 501.080 ####[facility] [address] [place], [address] FINGERSTICK GLU 216 mg/dL High 74-106 [facility] Comment on above: Result Comment: MARIE GEMENT OF PATIENT CARE PER NURSING PROTOCOL Performed By: #### L 501.080 ####[facility] [address] [place], [address] FINGERSTICK GLU 202 mg/dL High 74-106 [facility] Comment on above: Result Comment: MARIE GEMENT OF PATIENT CARE PER NURSING PROTOCOL Performed By: #### L 501.080 ####[facility] [address] [place], [address] FINGERSTICK GLU 134 mg/dL High 74-106 [facility] Comment on above: Result Comment: MARIE GEMENT OF PATIENT CARE PER NURSING PROTOCOL Performed By: #### L 501.080 ####[facility] [address] [place], [address] FINGERSTICK GLU 98 mg/dL Normal -106 [facility] Comment on above: Result Comment: MARIE GEMENT OF PATIENT CARE PER NURSING PROTOCOL Performed By: #### L 501.080 ####[facility] [address] [place], [address] Bilirubin Test strip Ql (U)O rdered By: Jesus Curtis on 10-31-2024 Bilirubin Ql (U) Negative Negative [facility] C-REACTIVE PROTEINon 025 CRP [Mass/Vol] 131.0 mg/L High <5.0 [facility] Comment on above: Performed By: #### L AB40 #### Hoistman: RELL AMAYA ([id number]) [facility] ([facility]) [address] [place] [address] CBC W Auto Differential pane l (Bld)Ordered By: Fco Swab on 10-31-2024 Erythrocyte distribution width (RBC) [Ratio] 17.8 % High 11.5 - 15.0 % [facility] Hematocrit (Bld) [Volume fraction] 22.5 % Low 35.0 - 47.0 % [facility] Hemoglobin (Bld) [Mass/Vol] 7 g/dL Low 11.7 - 16.0 g/dL [facility] Interpretation and review of laboratory results Abnormal [facility] MCH (RBC) [Entitic mass] 22.3 pg Low 26.0 - 34.0 pg [facility] MCHC (RBC) [Mass/Vol] 31.1 % 30.5 - 36.0 % [facility] MCV (RBC) [Entitic vol] 71.7 fL Low 77.0 - 99.0 fL [facility] Platelet mean volume (Bld) [Entitic vol] 12.1 fL 9.0 - 12.7 fL [facility] Platelets (Bld) [#/Vol] 273 10*3/uL 140 - 440 10*3/uL [facility] RBC (Bld) [#/Vol] 3.14 10*6/uL Low 3.80 - 5.2 0 10*6/uL [facility] WBC (Bld) [#/Vol] 8.4 10*3/uL 3.6 - 10.7 10*3/uL [facility] CBC W/Diff, Automatedon 06-0 3-2024 Absolute Lymph 1.35 X10 3/uL Normal 0.83-4.51 [facility] Comment on above: Performed By: #### L 300.3900, L503.6005, L100.0100, L300.4310, L500.4050, M200.1000 ####[facility] [address] [place], [address] Absolute Neut 8.8 X10 3/uL High 2.0-7.7 [facility] Comment on above: Performed By: #### L 300.3900, L503.6005, L100.0100, L300.4310, L500.4050, M200.1000 ####[facility] [address] [place], [address] Basophils/100 WBC (Bld) 0.5 % Normal 0-1 [facility] Comment on above: Performed By: #### L 300.3900, L503.6005, L100.0100, L300.4310, L500.4050, M200.1000 ####[facility] [address] [place], [address] Eosinophils/100 WBC (Bld) 2.5 % Normal 0-5 [facility] Comment on above: Performed By: #### L 300.3900, L503.6005, L100.0100, L300.4310, L500.4050, M200.1000 ####[facility] [address] [place], [address] Erythrocyte distribution width (RBC) [Ratio] 17.5 % High 11.6-14.6 [facility] Comment on above: Performed By: #### L 300.3900, L503.6005, L100.0100, L300.4310, L500.4050, M200.1000 ####[facility] [address] [place], [address] Hematocrit (Bld) [Volume fraction] 22.9 % Low 37-47 [facility] Comment on above: Performed By: #### L 300.3900, L503.6005, L100.0100, L300.4310, L500.4050, M200.1000 ####[facility] [address] [place], [address] Hemoglobin (Bld) [Mass/Vol] 7.4 g/dL Low 12.0-15.0 [facility] Comment on above: Performed By: #### L 300.3900, L503.6005, L100.0100, L300.4310, L500.4050, M200.1000 ####[facility] [address] [place], [address] IG% 0.400 Normal 0.0-0.9 [facility] Comment on above: Result Comment: IG% - Immature Granulocytes (promyelocytes, myelocytes andmetamyelocytes) > 1% indicates that a LEFT SHIFT is Present. Performed By: #### L 300.3900, L503.6005, L100.0100, L300.4310, L500.4050, M200.1000 ####[facility] [address] [place], [address] Lymphocytes/100 WBC (Bld) 11.4 % Low 19-41 [facility] Comment on above: Performed By: #### L 300.3900, L503.6005, L100.0100, L300.4310, L500.4050, M200.1000 ####[facility] [address] [place], [address] MCH (RBC) [Entitic mass] 23.1 pg Low 27.0-32.0 [facility] Comment on above: Performed By: #### L 300.3900, L503.6005, L100.0100, L300.4310, L500.4050, M200.1000 ####[facility] [address] [place], [address] MCHC (RBC) [Mass/Vol] 32.3 g/dL Normal 32-36 [facility] Comment on above: Performed By: #### L 300.3900, L503.6005, L100.0100, L300.4310, L500.4050, M200.1000 ####[facility] [address] [place], [address] MCV (RBC) [Entitic vol] 71.3 fL Low 81-99 [facility] Comment on above: Performed By: #### L 300.3900, L503.6005, L100.0100, L300.4310, L500.4050, M200.1000 ####[facility] [address] [place], [address] Monocytes/100 WBC (Bld) 11.0 % High 0-10 [facility] Comment on above: Performed By: #### L 300.3900, L503.6005, L100.0100, L300.4310, L500.4050, M200.1000 ####[facility] [address] [place], [address] Neutrophils/100 WBC (Bld) 74.2 % High 47-70 [facility] Comment on above: Performed By: #### L 300.3900, L503.6005, L100.0100, L300.4310, L500.4050, M200.1000 ####[facility] [address] [place], [address] Nucleated RBC (Bld) [#/Vol] 0 10*3/uL Normal 0-5 [facility] Comment on above: Performed By: #### L 300.3900, L503.6005, L100.0100, L300.4310, L500.4050, M200.1000 ####[facility] [address] [place], [address] Platelet mean volume (Bld) [Entitic vol] 11.4 fL Normal 6.2-12.0 [facility] Comment on above: Performed By: #### L 300.3900, L503.6005, L100.0100, L300.4310, L500.4050, M200.1000 ####[facility] [address] [place], [address] Platelets (Bld) [#/Vol] 267 10*3/uL Normal 150-450 [facility] Comment on above: Performed By: #### L 300.3900, L503.6005, L100.0100, L300.4310, L500.4050, M200.1000 ####[facility] [address] [place], [address] RBC (Bld) [#/Vol] 3.21 10*6/uL Low 4.2-5.4 [facility] Comment on above: Performed By: #### L 300.3900, L503.6005, L100.0100, L300.4310, L500.4050, M200.1000 ####[facility] [address] [place], [place], [id number](663) RDW SD 44.6 fl High 35.1-43.9 [facility] Comment on above: Performed By: #### L 300.3900, L503.6005, L100.0100, L300.4310, L500.4050, M200.1000 ####[facility] [address] [place], [address] WBC (Bld) [#/Vol] 11.9 10*3/uL High 4.4-11.0 [facility] Comment on above: Performed By: #### L 300.3900, L503.6005, L100.0100, L300.4310, L500.4050, M200.1000 ####[facility] [address] [place], [address] CBC WITH AUTO DIFFERENTIALon 10-31-2024 Erythrocyte distribution width (RBC) [Ratio] 17.8 % High 11.5-15.0 [facility] Comment on above: Performed By: #### Bridgett [id number], [id number], [id number] ####Hoistman: RELL AMAYA ([phone])[address] Hematocrit (Bld) [Volume fraction] 22.5 % Low 35.0-47.0 [facility] Comment on above: Performed By: #### L [id number], [id number], [id number] ####Hoistman: RELL AMAYA ([phone])[address] Hemoglobin (Bld) [Mass/Vol] 7.0 g/dL Low 11.7-16.0 [facility] Comment on above: Performed By: #### L [id number], [id number], [id number] ####Hoistman: RELL AMAYA ([phone])[facility])[address] [place] [address] MCH (RBC) [Entitic mass] 22.3 pg Low 26.0-34.0 [facility] Comment on above: Performed By: #### Bridgett [id number], [id number], [id number] ####Hoistman: RELL AMAYA ([phone])[facility])[address] [place] [address] MCHC 31.1 % Normal 30.5-36.0 [facility] Comment on above: Performed By: #### Bridgett [id number], [id number], [id number] ####Hoistman: RELL AMAYA ([phone])[facility])[address] [place] [address] MCV (RBC) [Entitic vol] 71.7 fL Low 77.0-99.0 [facility] Comment on above: Performed By: #### Bridgett [id number], [id number], [id number] ####Hoistman: RELL AMAYA ([phone])[facility])[address] [place] [address] Platelet mean volume (Bld) [Entitic vol] 12.1 fL Normal 9.0-12.7 [facility] Comment on above: Performed By: #### Bridgett [id number], [id number], [id number] ####Hoistman: RELL AMAYA ([phone])[facility])[address] [place] [address] Platelets (Bld) [#/Vol] 273 10*3/uL Normal 140-440 [facility] Comment on above: Performed By: #### L [id number], [id number], [id number] ####Hoistman: RELL AMAYA ([phone])[facility])[address] [place] [address] RBC (Bld) [#/Vol] 3.14 10*6/uL Low 3.80-5.20 [facility] Comment on above: Performed By: #### L [id number], [id number], [id number] ####Hoistman: RELL AMAYA ([phone])[facility] ([facility])[address] [place] [address] WBC (Bld) [#/Vol] 8.4 10*3/uL Normal 3.6-10.7 [facility] Comment on above: Performed By: #### L [id number], [id number], [id number] ####Hoistman: RELL AMAYA ([phone])[facility] ([facility])[address] [place] [address] COMPREHENSIVE METABOLIC PANE Andre 10-31-2024 Albumin [Mass/Vol] 1.7 g/dL Low 3.4-4.8 [facility] Comment on above: Performed By: #### L AB40 #### Hoistman: RELL AMAYA ([phone]) [facility] ([facility]) [address] [place] [address] ALP [Catalytic activity/Vol] 285 U/L High 40-150 [facility] Comment on above: Performed By: #### L AB40 #### Hoistman: RELL AMAYA ([phone]) [facility] ([facility]) [address] [place] [address] ALT [Catalytic activity/Vol] 61 U/L High <30 [facility] Comment on above: Performed By: #### L AB40 #### Hoistman: RELL AMAYA ([phone]) [facility] ([facility]) [address] [place] [address] Anion gap [Moles/Vol] 9 mmol/L Normal 3-13 [facility] Comment on above: Performed By: #### L AB40 #### Hoistman: RELL AMAYA ([phone]) [facility] ([facility]) [address] [place] [address] AST [Catalytic activity/Vol] 52 U/L High <34 [facility] Comment on above: Performed By: #### L AB40 #### Hoistman: RELL AMAYA ([phone]) [facility] ([facility]) [address] [place] [address] Bilirubin [Mass/Vol] 0.4 mg/dL Normal <1.2 [facility] Comment on above: Performed By: #### L AB40 #### Hoistman: RELL AMAYA ([phone]) [facility] ([facility]) [address] [place] [address] Calcium [Mass/Vol] 7.6 mg/dL Low 8.8-10.0 [facility] Comment on above: Performed By: #### L AB40 #### Hoistman: RELL AMAYA ([phone]) [facility]) [address] [place] [address] Chloride [Moles/Vol] 105 mmol/L Normal 98-107 [facility] Comment on above: Performed By: #### L AB40 #### Hoistman: RELL AMAYA ([phone]) [facility] ([facility]) [address] [place] [address] CO2 [Moles/Vol] 21 mmol/L Low 23-31 [facility] Comment on above: Performed By: #### L AB40 #### Hoistman: RELL AMAYA ([phone]) [facility]) [address] [place] [address] Creatinine [Mass/Vol] 0.46 mg/dL Low 0.57-1.11 [facility] Comment on above: Performed By: #### L AB40 #### Hoistman: RELL AMAYA ([phone]) [facility] ([facility]) [address] [place] [address] GLOMERULAR FILTRATION RATE ML/MIN/1.73 SQ M.PREDICTED >90.0 Normal >60.0 [facility] Comment on above: Result Comment: Calc ulation based on the Chronic Kidney Disease Epidemiology Collaboration (CKD-EPI) equation refit without adjustment for race Performed By: #### L [id number] #### Hoistman: RELL AMAYA ([id number]) [facility] [address] [place] [address] Glucose [Mass/Vol] 112 mg/dL Normal 82-115 [facility] Comment on above: Performed By: #### L AB40 #### Hoistman: RELL AMAYA ([id number]) [facility] [address] [place] [address] Potassium [Moles/Vol] 4.0 mmol/L Normal 3.5-5.1 [facility] Comment on above: Result Comment: [facility] potassium values may be up to 0.5 mmol/L lower than serum values. Performed By: #### L AB40 #### Hoistman: RELL AMAYA ([id number]) [facility] ([facility]) [address] [place] [address] Protein [Mass/Vol] 5.4 g/dL Low 6.4-8.3 [facility] Comment on above: Performed By: #### L [id number] #### Hoistman: RELL AMAYA ([id number]) [facility] [address] [place] [address] [place] Sodium [Moles/Vol] 135 mmol/L Low 136-145 [facility] Comment on above: Performed By: #### L AB40 #### Hoistman: RELL AMAYA ([id number]) [facility] ([facility]) [address] [place] [address] [place] Urea nitrogen [Mass/Vol] 9 mg/dL Normal 9-23 [facility] Comment on above: Performed By: #### L AB40 #### Hoistman: RELL AMAYA ([id number]) [facility] ([facility]) [address] [place] [address] [place] CRP [Mass/Vol]on 10-31-2024 Interpretation and review of laboratory results Abnormal [facility] CT ABDOMEN PELVIS W CONTRAST on 10-31-2024 CT ABDOMEN PELVIS W CONTRAST Patient Name: YOKO EMNAUEL : 1955 Exam Date/Time: 10/31/2024 16:29 Procedure: CT ABDOMEN PELVIS W CONTRAST Ordering Provider: SHAW JASON Reason For Exam: Abdominal fistula CLINICAL INFORMATION: Abdominal pain extending into the pelvis. Abdominal fistula. CT ABDOMEN: 3 mm axial cuts are obtained from the dome of the liver through the iliac crests with 75 mL Isovue IV contrast. Dose reduction was employed with automated exposure control. There are no comparison studies at this institution. FINDINGS: The lung bases are included on the examination and demonstrate small bibasilar infiltrates and effusions, right greater than left. The heart size is within normal limits. The liver and spleen are homogeneous in their attenuation without focal abnormality. The pancreas and adrenal glands are normal. Both kidneys are identified in their cortical phase. There is no evidence of hydronephrosis or hydroureter. No free fluid is seen within the abdomen. IMPRESSION: 1. Small bilateral infiltrates and effusions, right greater than left. CT PELVIS: 3 mm axial cuts are obtained from the iliac crests through the symphysis pubis with 75 mL Isovue IV contrast. Dose reduction was employed with automated exposure control. There are no comparison studies at this institution. FINDINGS: Air and stool are noted in nondistended loops of colon to the level of the rectum. Bowel wall thickening and mild inflammation are noted in the splenic flexure of the left colon. This abuts the abdominal surface. A fistulous tract is thought present to the skin surface. There are no loculated collections to suggest an abscess. The small bowel is not dilated. There is no evidence of obstruction. The distal ureters and bladder are normal. No free fluid is seen within the pelvis. Sagittal reconstructed images of the spine demonstrate L1 and L2 compression fractures. The age of these fractures is uncertain. IMPRESSION: 1. Mild bowel wall thickening and inflammation in the splenic flexure of the left colon. 2. Fistulous tract to the skin surface in the left lower quadrant. 3. No loculated collections to suggest an abscess. 4. Small bilateral infiltrates and effusions, right greater than left. 5. L1 and L2 compression fractures. The age of these fractures is uncertain. Report Dictated on Electronically Signed By: Celestine Goodrich MD Electronically Signed Date/Time: 10/31/2024 5:30 PM EDT [facility] CT Abdomen and Pelvis W cont rast Corey 10-31-2024 1. Small bilateral infiltrates and effusions, right greater than left. CT PELVIS: 3 mm axial cuts are obtained from the iliac crests through the symphysis pubis with 75 mL Isovue IV contrast. Dose reduction was employed with automated exposure control. There are no comparison studies at this institution. FINDINGS: Air and stool are noted in nondistended loops of colon to the level of the rectum. Bowel wall thickening and mild inflammation are noted in the splenic flexure of the left colon. This abuts the abdominal surface. A fistulous tract is thought present to the skin surface. There are no loculated collections to suggest an abscess. The small bowel is not dilated. There is no evidence of obstruction. The distal ureters and bladder are normal. No free fluid is seen within the pelvis. Sagittal reconstructed images of the spine demonstrate L1 and L2 compression fractures. The age of these fractures is uncertain. IMPRESSION: 1. Mild bowel wall thickening and inflammation in the splenic flexure of the left colon. 2. Fistulous tract to the skin surface in the left lower quadrant. 3. No loculated collections to suggest an abscess. 4. Small bilateral infiltrates and effusions, right greater than left. 5. L1 and L2 compression fractures. The age of these fractures is uncertain. Report Dictated on Electronically Signed By: Celestine Goodrich MD Electronically Signed Date/Time: 10/31/2024 5:30 PM [facility] 1955 [id number] Exam Date/Time: 10/31/2024 16:29 Procedure: CT ABDOMEN PELVIS W CONTRAST Ordering Provider: SHAW JASON Reason For Exam: Abdominal fistula CLINICAL INFORMATION: Abdominal pain extending into the pelvis. Abdominal fistula. CT ABDOMEN: 3 mm axial cuts are obtained from the dome of the liver through the iliac crests with 75 mL Isovue IV contrast. Dose reduction was employed with automated exposure control. There are no comparison studies at this institution. FINDINGS: The lung bases are included on the examination and demonstrate small bibasilar infiltrates and effusions, right greater than left. The heart size is within normal limits. The liver and spleen are homogeneous in their attenuation without focal abnormality. The pancreas and adrenal glands are normal. Both kidneys are identified in their cortical phase. There is no evidence of hydronephrosis or hydroureter. No free fluid is seen within the abdomen. [facility] Celestine Goodrich MD - 10/31/2024 Patient Name: [facility]OK[facility]UEL : 1955 [id number] Exam Date/Time: 10/31/2024 16:29 Procedure: CT ABDOMEN PELVIS W CONTRAST Ordering Provider: SHAW JASON Reason For Exam: Abdominal fistula CLINICAL INFORMATION: Abdominal pain extending into the pelvis. Abdominal fistula. CT ABDOMEN: 3 mm axial cuts are obtained from the dome of the liver through the iliac crests with 75 mL Isovue IV contrast. Dose reduction was employed with automated exposure control. There are no comparison studies at this institution. FINDINGS: The lung bases are included on the examination and demonstrate small bibasilar infiltrates and effusions, right greater than left. The heart size is within normal limits. The liver and spleen are homogeneous in their attenuation without focal abnormality. The pancreas and adrenal glands are normal. Both kidneys are identified in their cortical phase. There is no evidence of hydronephrosis or hydroureter. No free fluid is seen within the abdomen. IMPRESSION: 1. Small bilateral infiltrates and effusions, right greater than left. CT PELVIS: 3 mm axial cuts are obtained from the iliac crests through the symphysis pubis with 75 mL Isovue IV contrast. Dose reduction was employed with automated exposure control. There are no comparison studies at this institution. FINDINGS: Air and stool are noted in nondistended loops of colon to the level of the rectum. Bowel wall thickening and mild inflammation are noted in the splenic flexure of the left colon. This abuts the abdominal surface. A fistulous tract is thought present to the skin surface. There are no loculated collections to suggest an abscess. The small bowel is not dilated. There is no evidence of obstruction. The distal ureters and bladder are normal. No free fluid is seen within the pelvis. Sagittal reconstructed images of the spine demonstrate L1 and L2 compression fractures. The age of these fractures is uncertain. IMPRESSION: 1. Mild bowel wall thickening and inflammation in the splenic flexure of the left colon. 2. Fistulous tract to the skin surface in the left lower quadrant. 3. No loculated collections to suggest an abscess. 4. Small bilateral infiltrates and effusions, right greater than left. 5. L1 and L2 compression fractures. The age of these fractures is uncertain. Report Dictated on Electronically Signed By: Celestine Goodrich MD Electronically Signed Date/Time: 10/31/2024 5:30 PM EDT [facility] Radiology Study observation (narrative) [facility] CT Abdomen and Pelvis W cont rast IVOrdered By: Celestine Goodrich on 10-31-2024 [facility] Work Phone: CULTURE ANAEROBICon 11-01-19 CULTURE ANAEROBIC ANAEROBIC CULTURE Reference No growth at 5 days [ S = SUSCEPTIBLE R = RESISTANT I = INTERMEDIATE S-DD = Susceptible-dose dependent NS = Non-susceptible NO = No Interpretation ] Normal [facility] Comment on above: Performed By: #### L [id number] #### Hoistman: RELL AMAYA ([id number]) [facility] ([facility]) [address] [place] [address] CULTURE, AEROBIC BACTERIA WI TH GRAM STAINon 10-31-2024 CULTURE, AEROBIC BACTERIA WITH GRAM STAIN CULTURE Reference Moderate enteric lilly present GRAM STAIN RESULT (A) Reference (A) Moderate Polymorphonuclear leukocytes per low power field Many Gram positive cocci Many Gram negative bacilli Moderate Gram positive bacilli Few Yeast [ S = SUSCEPTIBLE R = RESISTANT I = INTERMEDIATE S-DD = Susceptible-dose dependent NS = Non-susceptible NO = No Interpretation ] Normal [facility] Comment on above: Performed By: #### L [id number] #### Hoistman: RELL AMAYA ([id number]) [facility] ([facility]) [address] [place] [address] [place] CULTURE, CATH TIPon 11-01-19 25 CULTURE, CATH TIP CATH TIP CULTURE (A) Reference KLEBSIELLA PNEUMONIAE >15 CFU Klebsiella pneumoniae (A) Organism: KLEBSIELLA PNEUMONIAE Antibiotic IRA Interpretation Status Amoxicillin / Clavulanate 4 ug/ml S F Ampicillin R F Ampicillin / Sulbactam 4 ug/ml S F Aztreonam <=1 ug/ml S F Cefazolin 2 ug/ml S F Cefepime <=0.12 ug/ml S F Ceftriaxone <=0.25 ug/ml S F Ciprofloxacin <=0.06 ug/ml S F Ertapenem <=0.12 ug/ml S F Gentamicin <=1 ug/ml S F Levofloxacin <=0.12 ug/ml S F Meropenem <=0.25 ug/ml S F Piperacillin / Tazobactam <=4 ug/ml S F Trimethoprim / Sulfamethoxazole <=20 ug/ml S F [ S = SUSCEPTIBLE R = RESISTANT I = INTERMEDIATE S-DD = Susceptible-dose dependent NS = Non-susceptible NO = No Interpretation ] Normal [facility] Comment on above: Performed By: #### L [id number] #### Hoistman: RELL AMAYA ([id number]) [facility] ([facility]) [address] [place] [address] [facility] 10-31-2024 Albumin [Mass/Vol] 2.4 g/dL Low 3.4-4.8 [facility] Comment on above: Performed By: #### L 300.3900, L503.6005, L100.0100, L300.4310, L500.4050, M200.1000 ####[facility] [address] [place], [address] Albumin/Globulin [Mass ratio] 0.8 {ratio} Low 0.9-2.4 [facility] Comment on above: Performed By: #### L 300.3900, L503.6005, L100.0100, L300.4310, L500.4050, M200.1000 ####[facility] [address] [place], [address] ALK PHOS 311 U/L High 35-104 [facility] Comment on above: Performed By: #### L 300.3900, L503.6005, L100.0100, L300.4310, L500.4050, M200.1000 ####[facility] [address] [facility] [place], [address] ALT [Catalytic activity/Vol] 60 U/L High <=34 [facility] Comment on above: Performed By: #### L 300.3900, L503.6005, L100.0100, L300.4310, L500.4050, M200.1000 ####[facility] [address] [place], [address] AST [Catalytic activity/Vol] 48 U/L High <=31 [facility] Comment on above: Performed By: #### L 300.3900, L503.6005, L100.0100, L300.4310, L500.4050, M200.1000 ####[facility] [address] [place], [address] Bilirubin [Mass/Vol] 0.33 mg/dL Normal 0.00-1.30 [facility] Comment on above: Performed By: #### L 300.3900, L503.6005, L100.0100, L300.4310, L500.4050, M200.1000 ####[facility] [address] [place], [address] BUN/CRE 56.9 RATIO High 10-20 [facility] Comment on above: Performed By: #### L 300.3900, L503.6005, L100.0100, L300.4310, L500.4050, M200.1000 ####[facility] [address] [place], [address] Calcium [Mass/Vol] 8.4 mg/dL Normal 7.6-11.0 [facility] Comment on above: Performed By: #### L 300.3900, L503.6005, L100.0100, L300.4310, L500.4050, M200.1000 ####[facility] [address] [place], [address] Chloride [Moles/Vol] 103 mmol/L Normal 98-108 [facility] Comment on above: Performed By: #### L 300.3900, L503.6005, L100.0100, L300.4310, L500.4050, M200.1000 ####[facility] [address] [place], [address] CO2 [Moles/Vol] 23.5 mmol/L Normal 21.0-32.0 [facility] Comment on above: Performed By: #### L 300.3900, L503.6005, L100.0100, L300.4310, L500.4050, M200.1000 ####[facility] [address] [place], [address] Creatinine [Mass/Vol] 0.34 mg/dL Low 0.70-1.20 [facility] Comment on above: Performed By: #### L 300.3900, L503.6005, L100.0100, L300.4310, L500.4050, M200.1000 ####[facility] [address] [place], [address] ECRCL 44.95 ml/min Low 50-250 [facility] Comment on above: Performed By: #### L 300.3900, L503.6005, L100.0100, L300.4310, L500.4050, M200.1000 ####[facility] [address] [place], [address] GAP 9 Normal 5-15 [facility] Comment on above: Performed By: #### L 300.3900, L503.6005, L100.0100, L300.4310, L500.4050, M200.1000 ####[facility] [address] [place], [address] GFR/1.73 sq M.predicted among non-blacks MDRD (S/P/Bld) [Vol rate/Area] 111 mL/min/{1.73_m2} Normal >60 [facility] Comment on above: Result Comment: mL/m in/1.73m2 CKD-EPI Creatinine Equation (2020) Performed By: #### L 300.3900, L503.6005, L100.0100, L300.4310, L500.4050, M200.1000 ####[facility] [address] [place], [address] Globulin (S) [Mass/Vol] 3.1 g/dL Normal 2.2-4.2 [facility] Comment on above: Performed By: #### L 300.3900, L503.6005, L100.0100, L300.4310, L500.4050, M200.1000 ####[facility] [address] [place], [address] Glucose [Mass/Vol] 31 mg/dL Invalid Interpretation Code 70-99 [facility] Comment on above: Result Comment: Crit ical Result(s) Called at: 0053 by:??SELENA ARROYO Results read back by same. Performed By: #### L 300.3900, L503.6005, L100.0100, L300.4310, L500.4050, M200.1000 ####[facility] [address] [place], [address] Potassium [Moles/Vol] 3.8 mmol/L Normal 3.3-5.1 [facility] Comment on above: Performed By: #### L 300.3900, L503.6005, L100.0100, L300.4310, L500.4050, M200.1000 ####[facility] [address] [place], [address] Sodium [Moles/Vol] 135 mmol/L Normal 133-145 [facility] Comment on above: Performed By: #### L 300.3900, L503.6005, L100.0100, L300.4310, L500.4050, M200.1000 ####[facility] [address] [place], [address] T PROT 5.5 g/dL Low 5.9-8.4 [facility] Comment on above: Performed By: #### L 300.3900, L503.6005, L100.0100, L300.4310, L500.4050, M200.1000 ####[facility] [address] [place], [address] Urea nitrogen [Mass/Vol] 19 mg/dL Normal 4-19 [facility] Comment on above: Performed By: #### L 300.3900, L503.6005, L100.0100, L300.4310, L500.4050, M200.1000 ####[facility] [address] [place], [place], [id number] Comprehensive metabolic 1998 panelon 10-31-2024 Albumin [Mass/Vol] 1.7 g/dL Low 3.4 - 4.8 g/dL [facility] ALP [Catalytic activity/Vol] 285 U/L High 40 - 150 U/L [facility] ALT [Catalytic activity/Vol] 61 U/L High [facility] - 30 U/L [facility] Anion gap [Moles/Vol] 9 mmol/L 3 - 13 mmol/L [facility] AST [Catalytic activity/Vol] 52 U/L High [facility] - 34 U/L [facility] Bilirubin [Mass/Vol] 0.4 mg/dL [facility] - 1.[facility] mg/dL [facility] Calcium [Mass/Vol] 7.6 mg/dL Low 8.8 - 10. 0 mg/dL [facility] Chloride [Moles/Vol] 105 mmol/L 98 - 10 7 mmol/L [facility] CO2 [Moles/Vol] 21 mmol/L Low 23 - 31 mmol/L [facility] Creatinine [Mass/Vol] 0.46 mg/dL Low 0.57 - 1.11 mg/dL [facility] GFR/1.73 sq M.predicted (S/P/Bld) [Vol rate/Area] - PINF [facility] Comment on above: Calculation based on the Chronic Kidney Disease Epidemiology Collaboration (CKD-EPI) equation refit without adjustment for race Glucose [Mass/Vol] 112 mg/dL 82 - 115 mg/dL [facility] Potassium [Moles/Vol] 4 mmol/L 3.5 - 5.1 mmol/L [facility] Comment on above: Plasma potassium lazaro ues may be up to 0.5 mmol/L lower than serum values. Protein [Mass/Vol] 5.4 g/dL Low 6.4 - 8.3 g/dL [facility] Sodium [Moles/Vol] 135 mmol/L Low 136 - 145 mmol/L [facility] Urea nitrogen [Mass/Vol] 9 mg/dL 9 - 23 mg/dL [facility] [employer] Consulton 10-31-2024 Consult Pharmacy Managed Vancomycin Dosing Service Consult Note Consult Date: 10/31/24 Patient Name: Yoko Emanuel Allergies: Patient has no known allergies. Age: 69 y.o. Sex: female Estimated body mass index is 15.8 kg/m? as calculated from the following: Height as of this encounter: 1.448 m (4' 9"). Weight as of this encounter: 33.1 kg (73 lb). DW: 33.1 kg No results found for: "CREATININE", "BUN", "WBC", "CRCLEARANCE"Calculated CrCl: *CrCl UNKNOWN because NO history of Scr in EMR. CMP ordered and pending collection.. Will follow.* Consulted By: Henry Shaw APRN-KARLIE Infectious Diagnosis: SSTI (AUC Goal 400-600 mg/L*hr) Random Vancomycin Level Due: 6/4 AM Antimicrobials: Patient recently received an antibiotic (last 12 hours) None Assessment/Plan: Doses, serum creatinine, and vancomycin levels interfaced automatically to [employer] and data has been analyzed and interpreted. Give Vancomycin 750mg IVPB x1 (~22.7mg/kg) to get vancomycin started in patient that has NO labs in EMR to prevent treatment delay. Will re-assess regimen when SCR collected and determine plan going forward. Will assess random level on 6/4 AM and adjust as appropriate. Trend serum creatinine. Orders placed. ADDENDUM: 10/31 682 Patient's physical chart had SCR from [facility] as paper copy. 10/30 SCR 0.38mg/dL. Ran patient's info in our AUC dosing program, but do not trust recs as patient is small (only 33.1kg) and is not typical population. Will enter intermittent dosing place fierro and check level in AM. Thank you for this consult. Please secure text or call with questions. DATE: 10/31/24 TIME: 2:24 PM Dasha Herman [facility] Clinical Pharmacist Available via Secure Chat Normal [facility] ESR (Bld) [Velocity]Ordered By: Nan Minaya on 10-31-2024 Interpretation and review of laboratory results Abnormal [facility] Glucose measurement at [facility] deOrdered By: Jesus Curtis on 10-31-2024 Glucose [Mass/Vol] 202 mg/dL High 74-106 [facility] HEMOGLOBIN A1Con 10-31-2024 Glucose [Mass/Vol] 151 mg/dL Normal [facility] Comment on above: Result Comment: SHASTA Peralta COMMENTS: If not done within the last 3 mos HbA1c values of 5.7-6.4 percent indicate an increased risk for developing diabetes mellitus. HbA1c values greater than or equal to 6.5 percent are diagnostic of diabetes mellitus. For diagnosis of diabetes in individuals without unequivocal hyperglycemia, results should be confirmed by repeat testing. Performed By: #### L AB90 ####Hoistman: RELL AMAYA ([id number])[facility] [place] [address] HEMOGLOBIN A1C 6.9 %HbA1C High <5.7 [facility] Comment on above: Result Comment: Norm al less than 5.7% Prediabetes 5.7% to 6.4% Diabetes 6.5% or higher --HgbA1C levels may not be accurate in patients who have renal disease, received recent blood transfusions, are anemic, or who have dyshemoglobinemia. Performed By: #### L AB90 ####Hoistman: RELL AMAYA ([phone])[facility] [place] [address] Ketones Test strip Ql (U)Ord ered By: Jesus Curtis on 10-31-2024 Ketones Ql (U) Negative Negative [facility] LACTIC ACID WITH REFLEXon Lactate [Moles/Vol] 1.9 mmol/L Normal 0.5-2.2 [facility] Comment on above: Performed By: #### L AB40 #### Hoistman: RELL AMAYA ([id number]) [facility] ([facility]) [address] [place] [address] Laboratory - Chemistry and C hemistry - challengeon 10-31-2024 Glucose [Mass/Vol] 118 mg/dL High 70 - 100 mg/dL [facility] Glucose [Mass/Vol] 107 mg/dL High 70 - 100 mg/dL [facility] Average glucose Estimated from glycated hemoglobin (Bld) [Mass/Vol] 151 mg/dL [facility] CRP [Mass/Vol] 131 mg/L High [facility] - 5.0 mg/L [facility] Lactate [Moles/Vol] 1.9 mmol/L 0.5 - 2. 2 mmol/L [facility] Glucose [Mass/Vol] 176 mg/dL High 70 - 100 mg/dL [facility] Laboratory - Hematology and Cell countson 10-31-2024 HbA1c (Bld) [Mass fraction] 6.9 % High [facility] Comment on above: Normal less than 5.7 % Prediabetes 5.7% to 6.4% Diabetes 6.5% or higher --HgbA1C levels may not be accurate in patients who have renal disease, received recent blood transfusions, are anemic, or who have dyshemoglobinemia. Anisocytosis Ql (Bld) Slight Abnormal (none) [facility] Eosinophils (Bld) [#/Vol] 0.2 10*3/uL 0.0 - 0.5 10*3/uL [facility] Eosinophils/100 WBC (Bld) 2 % 0 - 6 % [facility] Lymphocytes (Bld) [#/Vol] 0.3 10*3/uL Low 1.0 - 4.3 10*3/uL [facility] Lymphocytes/100 WBC (Bld) 4 % Low 15 - 45 % [facility] Microcytes Ql (Bld) Slight Abnormal (none) [facility] Monocytes (Bld) [#/Vol] 0.3 10*3/uL 0.0 - 0.9 10*3/uL [facility] [facility] Monocytes/100 WBC (Bld) 4 % Low 5 - 13 % [facility] Neutrophils (Bld) [#/Vol] 7.6 10*3/uL High 1.8 - 7.5 10*3/uL [facility] Nucleated RBC/100 WBC (Bld) [Ratio] 1 % 0 - 2 % [facility] Ovalocytes LM Ql (Bld) Slight Abnormal (none) [facility] Poikilocytosis LM Ql (Bld) Slight Abnormal (none) [facility] RBC morphology finding Nom (Bld) abnormal [facility] Segmented neutrophils/100 WBC (Bld) 90 % High 38 - 82 % [facility] Laboratory - Hematology and Cell countsOrdered By: Nan Minaya on 10-31-2024 ESR (Bld) [Velocity] 67 mm/h High [facility] Lactic Acidon 10-31-2024 Lactate [Moles/Vol] 1.2 mmol/L Normal 0.0-2.0 [facility] Comment on above: Order Comment: Y Performed By: #### L 300.3900, L503.6005, L100.0100, L300.4310, L500.4050, M200.1000 ####[facility] [address] [place], [address] MANUAL DIFFERENTIAL (CELLAVI VITA)on 10-31-2024 ANISOCYTOSIS PRESENCE IN BLOOD BY LIGHT MICROSCOPY Slight Abnormal (none) [facility] Comment on above: Performed By: #### L [id number], [id number], [id number] ####Hoistman: RELL AMAYA ([phone])[facility] ([facility])[address] [place] [address] BAND NEUTROPHILS TOTAL PER COUNTED LEUKOCYTES BY MANUAL COUNT Normal [facility] Comment on above: Performed By: #### L [id number], [id number], [id number] ####Hoistman: RELL AMAYA ([phone])[facility] ([facility])[address] [place] [address] [place] BASOPHILS TOTAL PER COUNTED LEUKOCYTES BY MANUAL COUNT Normal [facility] Comment on above: Performed By: #### L [id number], [id number], [id number] ####Hoistman: RELL AMAYA ([phone])[facility] ([facility])[address] [place] [address] BLASTS TOTAL PER COUNTED LEUKOCYTES BY MANUAL COUNT Normal [facility] Comment on above: Performed By: #### L [id number], [id number], [id number] ####Hoistman: RELL AMAYA ([phone])[facility] ([facility])[address] [place] [address] [place] EOSINOPHILS (10*3/UL) IN BLOOD-CELLAVISION 0.2 10*3/uL Normal 0.0-0.5 [facility] Comment on above: Performed By: #### L [id number], [id number], [id number] ####Hoistman: RELL AMAYA ([phone])[facility] ([facility])[address] [place] [address] [place] EOSINOPHILS TOTAL PER COUNTED LEUKOCYTES BY MANUAL COUNT 2 High 0-1 [facility] Comment on above: Performed By: #### L [id number], [id number], [id number] ####Hoistman: RELL AMAYA ([phone])[facility] ([facility])[address] [place] [address] [place] EOSINOPHILS/100 LEUKOCYTES IN BLOOD-CELLAVISION 2 % Normal 0-6 [facility] Comment on above: Performed By: #### L [id number], [id number], [id number] ####Hoistman: RELL AMAYA ([phone])[facility] ([facility])[address] [place] [address] [place] LYMPHOCYTES (10*3/UL) IN BLOOD-CELLAVISION 0.3 10*3/uL Low 1.0-4.3 [facility] Comment on above: Performed By: #### L [id number], [id number], [id number] ####Hoistman: RELL AMAYA ([phone])[facility] ([facility])[address] [place] [address] [place] LYMPHOCYTES TOTAL PER COUNTED LEUKOCYTES BY MANUAL COUNT 4 Normal [facility] Comment on above: Performed By: #### L [id number], [id number], [id number] ####Hoistman: RELL AMAYA ([phone])[facility] ([facility])[address] [place] [address] LYMPHOCYTES/100 LEUKOCYTES IN BLOOD-CELLAVISION 4 % Low 15-45 [facility] Comment on above: Performed By: #### L [id number], [id number], [id number] ####Hoistman: RELL AMAYA ([phone])[facility] ([facility])[address] [place] [address] METAMYELOCYTES TOTAL PER COUNTED LEUKOCYTES BY MANUAL COUNT Normal [facility] Comment on above: Performed By: #### L [id number], [id number], [id number] ####Hoistman: RELL AMAYA ([phone])[facility] ([facility])[address] [place] [address] MICROCYTES (PRESENCE) IN BLOOD BY LIGHT MICROSCOPY Slight Abnormal (none) [facility] Comment on above: Performed By: #### L [id number], [id number], [id number] ####Hoistman: RELL AMAYA ([phone])[facility] ([facility])[address] [place] [address] MONOCYTES (10*3/UL) IN BLOOD-CELLAVISION 0.3 10*3/uL Normal 0.0-0.9 [facility] Comment on above: Performed By: #### L [id number], [id number], [id number] ####Hoistman: RELL AMAYA ([phone])[facility] ([facility])[address] [place] [address] [place] MONOCYTES TOTAL PER COUNTED LEUKOCYTES BY MANUAL COUNT 4 Normal [facility] Comment on above: Performed By: #### L [id number], [id number], [id number] ####Hoistman: RELL AMAYA ([phone])[facility] ([facility])[address] [place] [address] [place] MONOCYTES/100 LEUKOCYTES IN BLOOD-KAYDEN 4 % Low 5-13 [facility] Comment on above: Performed By: #### L [id number], [id number], [id number] ####Hoistman: RELL AMAYA ([phone])[facility] ([facility])[address] [place] [address] [place] MYELOCYTES COUNTED BY MANUAL COUNT Normal [facility] Comment on above: Performed By: #### L [id number], [id number], [id number] ####Hoistman: RELL AMAYA ([phone])[facility] ([facility])[address] [place] [address] [place] NEUTROPHILS TOTAL PER COUNTED LEUKOCYTES BY MANUAL COUNT 91 Normal [facility] Comment on above: Performed By: #### L [id number], [id number], [id number] ####Hoistman: RELL AMAYA ([phone])[facility] ([facility])[address] [place] [address] [place] NUCLEATED ERYTHROCYTES/100 LEUKOCTES IN BLOOD-CELLAVISION 1 % Normal 0-2 [facility] Comment on above: Performed By: #### L [id number], [id number], [id number] ####Hoistman: RELL AMAYA ([phone])[facility] ([facility])[address] [place] [address] [place] OVALOCYTES PRESENCE IN BLOOD BY LIGHT MICROSCOPY Slight Abnormal (none) [facility] Comment on above: Performed By: #### L [id number], [id number], [id number] ####Hoistman: RELL AMAYA ([phone])[facility] ([facility])[address] [place] [address] [place] POIKILOCYTOSIS (PRESENCE) IN BLOOD BY LIGHT MICROSCOPY Slight Abnormal (none) [facility] Comment on above: Performed By: #### L [id number], [id number], [id number] ####Hoistman: RELL AMAYA ([phone])[facility] ([facility])[address] [place] [address] [place] PROMYELOCYTES TOTAL PER COUNTED LEUKOCYTES BY MANUAL COUNT Normal [facility] Comment on above: Performed By: #### L [id number], [id number], [id number] ####Hoistman: RELL AMAYA ([phone])[facility])[address] [place] [address] RBC MORPHOLOGY IN BLOOD abnormal Normal [facility] Comment on above: Performed By: #### Bridgett [id number], [id number], [id number] ####Hoistman: RELL AMAYA ([phone])[facility])[address] [place] [address] SEGMENTED NEUTROPHILS (10*3/UL) IN BLOOD-CELLAVISION 7.6 10*3/uL High 1.8-7.5 [facility] Comment on above: Performed By: #### Bridgett [id number], [id number], [id number] ####Hoistman: RELL AMAYA ([phone])[facility])[address] [place] [address] SEGMENTED NEUTROPHILS/100 LEUKOCYTES-CE 90 % High 38-82 [facility] Comment on above: Performed By: #### Bridgett [id number], [id number], [id number] ####Hoistman: RELL AMAYA ([phone])[facility])[address] [place] [address] UNCLASSIFIED CELLS TOTAL PER COUNTED LEUKOCYTES BY MANUAL COUNT [facility] Comment on above: Performed By: #### Bridgett [id number], [id number], [id number] ####Hoistman: RELL AMAYA ([phone])[facility])[address] [place] [address] VARIANT LYMPHOCYTES TOTAL PER COUNTED LEUKOCYTES BY MANUAL COUNT [facility] Comment on above: Performed By: #### L [id number], [id number], [id number] ####Hoistman: RELL AMAYA ([phone])[facility])[address] [place] [address] Mucus LM Ql (Urine sed)Order ed By: Jesus Curtis on 10-31-2024 Mucus Ql (Urine sed) 2+ /hpf [facility] Nitrite Test strip Ql (U)Ord ered By: Jesus Curtis on 10-31-2024 Nitrite Ql (U) Negative Negative [facility] No Panel Informationon 10-31 Interpretation and review of laboratory results Abnormal [facility] Performed by: [facility], [address] [place] [address] CLIA ID: [id number] [facility] Interpretation and review of laboratory results Abnormal [facility] Performed by: [facility], [address] [place] [address] CLIA ID: [id number] [facility] Interpretation and review of laboratory results Abnormal [facility] HbA1c values of 5.7- 6.4 percent indicate an increased risk for developing diabetes mellitus. HbA1c values greater than or equal to 6.5 percent are diagnostic of diabetes mellitus. For diagnosis of diabetes in individuals without unequivocal hyperglycemia, results should be confirmed by repeat testing. [facility] Atypical Lymphocytes Manual [facility] Bands Manual [facility] Basophils Manual [facility] Blasts Manual [facility] Eosinophils Manual 2 High 0 - 1 [facility] Interpretation and review of laboratory results Abnormal [facility] Lymphocytes Manual 4 [facility] Metamyelocytes Manual [facility] Monocytes Manual 4 [facility] Myelocytes Manual [facility] Neutrophils Manual 91 [facility] Promyelocytes Manual [facility] Unclassified Cells, Manual [facility] Interpretation and review of laboratory results Normal [facility] Interpretation and review of laboratory results Abnormal [facility] Performed by: [facility], [address] [place] [address] CLIA ID: [id number] [facility] Partial Thromboplast Timeon 10-31-2024 aPTT Coag (Bld) [Time] 36.4 s High 24.1-36.2 [facility] Comment on above: Performed By: #### L 300.3900, L503.6005, L100.0100, L300.4310, L500.4050, M200.1000 ####[facility] [address] [place], [address] Progress Noteon 10-31-2024 Progress Note [facility] ADMISSION MEDICATION RECONCILIATION Date: 10/31/24 [facility] Patient Name: Yoko Emanuel Allergies: Patient has no known allergies. Age: 69 y.o. Sex: female Note: New information has been obtained regarding the patient?s medications. The medication reconciliation has been updated to reflect this. Please consider making these changes/additions if appropriate: Recommendations: *FYI* - updated home med list based on paper med list from patient's [facility] med list. Home medications to restart if there is not a current contraindication: Heparin 5000units subcutaneous BID (Lovenox 30mg subcutaneous qday ordered as inpatient) Tylenol 650mg PO/GA q4h PRN Zinc Sulfate 220mg BID *FYI* - patient receives [facility] TPN 10 hours/day at [facility] prior to admission, consider consulting Dr. Hrat for TPN evaluation while admitted? Please page/call with questions. Date: 10/31/24 Time: 3:12 PM 10/31/2024 3:15 PM Dasha Herman, PharmD Normal [facility] Protein Test strip Ql (U)Ord ered By: Jesus Curtis on 10-31-2024 Protein Ql (U) 15 mg/dl High Negative [facility] Prothrombin Time w/INRon INR Coag (PPP) [Relative time] 1.1 {INR} Normal [facility] Comment on above: Performed By: #### L 300.3900, L503.6005, L100.0100, L300.4310, L500.4050, M200.1000 ####[facility] [address] [place], [place], [id number] PT Coag (PPP) [Time] 14.8 s Normal 11.7-14.9 [facility] Comment on above: Performed By: #### L 300.3900, L503.6005, L100.0100, L300.4310, L500.4050, M200.1000 ####[facility] [address] [place], [address] SEDIMENTATION RATE, AUTOMATE Don 10-31-2024 SEDIMENTATION RATE, ERYTHROCYTE 67 mm/hr High 0-20 [facility] Comment on above: Performed By: #### L [id number], [id number], [id number] ####Hoistman: RELL AMAYA ([phone])[facility] ([facility])[address] [place] [address] Squamous epithelial cells de tection in urine sediment by light microscopyOrdered By: Jesus Curtis on 10-31-2024 Epithelial cells.squamous LM Ql (Urine sed) 0 SEEN /hpf 5-10 [facility] Urinalysis, Completeon 10-31 BACTERIA 2+ /hpf Normal None Seen [facility] Comment on above: Order Comment: LENORA CTOR TO SPECIFY Performed By: #### L 400.0001, M10 ####[facility] [address] [place], [address] Mucus Ql (Urine sed) 2+ /hpf Normal [facility] Comment on above: Order Comment: LENORA CTOR TO SPECIFY Performed By: #### L 400.0001, M1.0 ####[facility] [address] [place], [address] EPI,SQUAMOUS 0 SEEN Normal -10 [facility] Comment on above: Order Comment: LENORA CTOR TO SPECIFY Performed By: #### L 400.0001, M1.0 ####[facility] [address] [place], [address] RBC 0 SEEN Normal 0-5 [facility] Comment on above: Order Comment: LENORA CTOR TO SPECIFY Performed By: #### L 400.0001, M1.2199 ####[facility] [address] [place], [address] WBC 0 SEEN Normal 0-5 [facility] Comment on above: Order Comment: COLLE CTOR TO SPECIFY Performed By: #### L 400.0001, M1.2199 ####[facility] [address] [place], [address] Urine clarityOrdered By: Nenita Cutris on 10-31-2024 Clarity (U) Clear Clear [facility] Urine color determinationOrd ered By: Jesus Curtis on 10-31-2024 Color (U) Yellow Yellow [facility] Urine glucose detectionOrder ed By: Jesus Curtis on 10-31-2024 Glucose Ql (U) Normal mg/dl Normal [facility] Urine leukocyte esterase det ection by dipstickOrdered By: Jesus Curtis on 10-31-2024 Leukocyte esterase Test strip Ql (U) Negative Negative [facility] Urine pHOrdered By: Jesus vazquez on 10-31-2024 pH (U) 5.0 [pH] 5.0 - 8.0 [facility] Urine sediment bacteria coun t by microscopy (number/high power field)Ordered By: Jesus Curtis on 10-31-2024 Bacteria LM.HPF (Urine sed) [#/Area] 2 /[HPF] None Seen [facility] Urine specific gravity measu rementOrdered By: Jesus Curtis on 10-31-2024 Specific gravity (U) [Rel density] 1.020 1.002-1.030 [facility] Urine urobilinogen measureme ntOrdered By: Jesus Curtis on 10-31-2024 Urobilinogen Ql (U) Normal mg/dl Normal [facility] White blood cell countOrdere d By: Jesus Curtis on 10-31-2024 White blood cell count 0 SEEN /hpf 0-5 [facility] XR CHEST 1 VIEWon 10-31-2024 XR CHEST 1 VIEW Patient Name: YOKO CAMILO : 1955 Exam Date/Time: 10/31/2024 12:52 Procedure: XR CHEST 1 VIEW Ordering Provider: SHAW JASON Reason For Exam: DYSPNEA EXAMINATION: Portable chest INDICATION: DYSPNEA FINDINGS: Right arm PICC line tip overlies the expected SVC. Moderate diffuse interstitial prominence the lungs present with mild left basilar infiltrate. The cardiac silhouette and mediastinum are within normal limits. There is mild calcification of the aortic arch. Small osteophytes of the spine are present at multiple levels. IMPRESSION: Interstitial prominence, which may be secondary to pulmonary edema, atypical infection or may in part be chronic. Mild left basilar infiltrate also present. Follow-up recommended. Probable small right-sided pleural effusion. Report Dictated on Electronically Signed By: Hi Guerin MD Electronically Signed Date/Time: 10/31/2024 2:35 PM EDT [facility] XR Chest Single viewon 10-31 Interstitial promine nce, which may be secondary to pulmonary edema, atypical infection or may in part be chronic. Mild left basilar infiltrate also present. Follow-up recommended. Probable small right-sided pleural effusion. Report Dictated on Electronically Signed By: Hi Guerin MD Electronically Signed Date/Time: 10/31/2024 2:35 PM EDT [facility] Patient Name: YOKO CAMILO : 1955 Exam Date/Time: 10/31/2024 12:52 Procedure: XR CHEST 1 VIEW Ordering Provider: SHAW JASON Reason For Exam: DYSPNEA EXAMINATION: Portable chest INDICATION: DYSPNEA FINDINGS: Right arm PICC line tip overlies the expected SVC. Moderate diffuse interstitial prominence the lungs present with mild left basilar infiltrate. The cardiac silhouette and mediastinum are within normal limits. There is mild calcification of the aortic arch. Small osteophytes of the spine are present at multiple levels. [facility] Hi Guerin MD - 10/31/2024 Patient Name: YOKO EMANUEL : 1955 Exam Date/Time: 10/31/2024 12:52 Procedure: XR CHEST 1 VIEW Ordering Provider: SHAW JASON Reason For Exam: DYSPNEA EXAMINATION: Portable chest INDICATION: DYSPNEA FINDINGS: Right arm PICC line tip overlies the expected SVC. Moderate diffuse interstitial prominence the lungs present with mild left basilar infiltrate. The cardiac silhouette and mediastinum are within normal limits. There is mild calcification of the aortic arch. Small osteophytes of the spine are present at multiple levels. IMPRESSION: Interstitial prominence, which may be secondary to pulmonary edema, atypical infection or may in part be chronic. Mild left basilar infiltrate also present. Follow-up recommended. Probable small right-sided pleural effusion. Report Dictated on Electronically Signed By: Hi Guerin MD Electronically Signed Date/Time: 10/31/2024 2:35 PM EDT [facility] Radiology Study observation (narrative) [facility] XR Chest Single viewOrdered By: Hi Guerin on 10-31-2024 [facility] Work Phone: 12 Lead EKGon 10-30-2024 12 Lead EKG Normal [facility] Absolute lymphocyte countOrd ered By: Jesus Curtis on 10-30-2024 Lymphocytes Auto (Unsp spec) [#/Vol] 1.35 10*3/uL 0.83-4.51 [facility] Activated partial thrombopla stin time (aPTT) in platelet poor plasma by coagulation aOrdered By: Jesus Curtis on 10-30-2024 aPTT Coag (PPP) [Time] 36.4 s High 24.1-36.2 [facility] Anion gap in Serum or Plasma Ordered By: Jesus Curtis on 10-30-2024 Anion gap [Moles/Vol] 9 mmol/L 10-12 [facility] Anion gap in Serum or Plasma Ordered By: Olya Piña on 10-30-2024 Anion gap [Moles/Vol] 10 mmol/L 10-12 [facility] Automated lymphocyte count a s percentage of total leukocytesOrdered By: Jesus Curtis on 10-30-2024 Lymphocytes/100 WBC Auto (Unsp spec) 11.4 % Low 19-41 [facility] BUN/creatinine ratioOrdered By: Jesus Curtis on 10-30-2024 Urea nitrogen/Creatinine [Mass ratio] 56.9 mg/mg High 03-19 [facility] BUN/creatinine ratioOrdered By: Olya Piña on 10-30-2024 Urea nitrogen/Creatinine [Mass ratio] 52.1 mg/mg High 03-19 [facility] Basophil percentageOrdered B y: Jesus Mendozarus on 10-30-2024 Basophils/100 WBC (Bld) 0.5 % 0-1 [facility] Bilirubin, totalOrdered By: Jesus Ever on 10-30-2024 Bilirubin [Mass/Vol] 0.33 mg/dL 0.00-1.30 [facility] Bilirubin, totalOrdered By: Olya Piña on 10-30-2024 Bilirubin [Mass/Vol] 0.34 mg/dL 0.00-1.30 [facility] CBC-Complete Blood Cnt No Di ffon 10-30-2024 Erythrocyte distribution width (RBC) [Ratio] 17.5 % High 11.6-14.6 [facility] Comment on above: Order Comment: 205 Performed By: #### L 3300.9900, L100.0500, L501.5200, L501.2300, L500.4050, L501.5000 ####[facility] [address] [place], [place], [phone]) Hematocrit (Bld) [Volume fraction] 23.2 % Low 37-47 [facility] Comment on above: Order Comment: 205 Performed By: #### L 3300.9900, L100.0500, L501.5200, L501.2300, L500.4050, L501.5000 ####[facility] [address] [place], [address] Hemoglobin (Bld) [Mass/Vol] 7.3 g/dL Low 12.0-15.0 [facility] Comment on above: Order Comment: 205 Performed By: #### L 3300.9900, L100.0500, L501.5200, L501.2300, L500.4050, L501.5000 ####[facility] [address] [place], [address] MCH (RBC) [Entitic mass] 22.8 pg Low 27.0-32.0 [facility] Comment on above: Order Comment: 205 Performed By: #### L 3300.9900, L100.0500, L501.5200, L501.2300, L500.4050, L501.5000 ####[facility] [address] [place], [address] MCHC (RBC) [Mass/Vol] 31.5 g/dL Low 32-36 [facility] Comment on above: Order Comment: 205 Performed By: #### L 3300.9900, L100.0500, L501.5200, L501.2300, L500.4050, L501.5000 ####[facility] [address] [place], [address] MCV (RBC) [Entitic vol] 72.5 fL Low 81-99 [facility] Comment on above: Order Comment: 205 Performed By: #### L 3300.9900, L100.0500, L501.5200, L501.2300, L500.4050, L501.5000 ####[facility] [address] [place], [address] Platelet mean volume (Bld) [Entitic vol] 12.7 fL High 6.2-12.0 [facility] Comment on above: Order Comment: 205 Performed By: #### L 3300.9900, L100.0500, L501.5200, L501.2300, L500.4050, L501.5000 ####[facility] [address] [place], [address] Platelets (Bld) [#/Vol] 221 10*3/uL Normal 150-450 [facility] Comment on above: Order Comment: 205 Performed By: #### L 3300.9900, L100.0500, L501.5200, L501.2300, L500.4050, L501.5000 ####[facility] [address] [place], [address] RBC (Bld) [#/Vol] 3.20 10*6/uL Low 4.2-5.4 [facility] Comment on above: Order Comment: 205 Performed By: #### L 3300.9900, L100.0500, L501.5200, L501.2300, L500.4050, L501.5000 ####[facility] [address] [place], [address] RDW SD 45.7 fl High 35.1-43.9 [facility] Comment on above: Order Comment: 205 Performed By: #### L 3300.9900, L100.0500, L501.5200, L501.2300, L500.4050, L501.5000 ####[facility] [address] [place], [address] WBC (Bld) [#/Vol] 19.4 10*3/uL High 4.4-11.0 [facility] Comment on above: Order Comment: 205 Performed By: #### L 3300.9900, L100.0500, L501.5200, L501.2300, L500.4050, L501.5000 ####[facility] [address] [place], [address] Carbon dioxide, total [Moles /volume] in Central venous bloodOrdered By: Jesus Curtis on 10-30-2024 CO2 [Moles/Vol] 23.5 mmol/L 21.0-32.0 [facility] Carbon dioxide, total [Moles /volume] in Central venous bloodOrdered By: Olya Piña on 10-30-2024 CO2 [Moles/Vol] 22.5 mmol/L 21.0-32.0 [facility] Chest 1 View (Portable)on Chest 1 View (Portable) Normal [facility] Chloride assayOrdered By: Levi Bakerrus on 10-30-2024 Chloride [Moles/Vol] 103 mmol/L 98-108 [facility] Chloride assayOrdered By: Moe Piña on 10-30-2024 Chloride [Moles/Vol] 100 mmol/L 98-108 [facility] Comprehensive Metabolic Prof ilon 10-30-2024 Albumin [Mass/Vol] 2.5 g/dL Low 3.4-4.8 [facility] Comment on above: Order Comment: 205 Performed By: #### L 3300.9900, L100.0500, L501.5200, L501.2300, L500.4050, L501.5000 ####[facility] [address] [place], [address] Albumin/Globulin [Mass ratio] 0.8 {ratio} Low 0.9-2.4 [facility] Comment on above: Order Comment: 205 Performed By: #### L 3300.9900, L100.0500, L501.5200, L501.2300, L500.4050, L501.5000 ####[facility] [address] [place], [address] ALK PHOS 340 U/L High 35-104 [facility] Comment on above: Order Comment: 205 Performed By: #### L 3300.9900, L100.0500, L501.5200, L501.2300, L500.4050, L501.5000 ####[facility] [address] [place], [address] ALT [Catalytic activity/Vol] 61 U/L High <=34 [facility] Comment on above: Order Comment: 205 Performed By: #### L 3300.9900, L100.0500, L501.5200, L501.2300, L500.4050, L501.5000 ####[facility] [address] [place], [address] AST [Catalytic activity/Vol] 37 U/L High <=31 [facility] Comment on above: Order Comment: 205 Performed By: #### L 3300.9900, L100.0500, L501.5200, L501.2300, L500.4050, L501.5000 ####[facility] [address] [place], [address] Bilirubin [Mass/Vol] 0.34 mg/dL Normal 0.00-1.30 [facility] Comment on above: Order Comment: 205 Performed By: #### L 3300.9900, L100.0500, L501.5200, L501.2300, L500.4050, L501.5000 ####[facility] [address] [place], [address] BUN/CRE 52.1 RATIO High 10-20 [facility] Comment on above: Order Comment: 205 Performed By: #### L 3300.9900, L100.0500, L501.5200, L501.2300, L500.4050, L501.5000 ####[facility] [address] [place], [address] Calcium [Mass/Vol] 7.9 mg/dL Normal 7.6-11.0 [facility] Comment on above: Order Comment: 205 Performed By: #### L 3300.9900, L100.0500, L501.5200, L501.2300, L500.4050, L501.5000 ####[facility] [address] [place], [address] Chloride [Moles/Vol] 100 mmol/L Normal 98-108 [facility] Comment on above: Order Comment: 205 Performed By: #### L 3300.9900, L100.0500, L501.5200, L501.2300, L500.4050, L501.5000 ####[facility] [address], [address] CO2 [Moles/Vol] 22.5 mmol/L Normal 21.0-32.0 [facility] Comment on above: Order Comment: 205 Performed By: #### L 3300.9900, L100.0500, L501.5200, L501.2300, L500.4050, L501.5000 ####[facility] [address] [place], [address] Creatinine [Mass/Vol] 0.38 mg/dL Low 0.70-1.20 [facility] Comment on above: Order Comment: 205 Performed By: #### L 3300.9900, L100.0500, L501.5200, L501.2300, L500.4050, L501.5000 ####[facility] [address] [place], [address] GAP 10 Normal 5-15 [facility] Comment on above: Order Comment: 205 Performed By: #### L 3300.9900, L100.0500, L501.5200, L501.2300, L500.4050, L501.5000 ####[facility] [address] [place], [address] GFR/1.73 sq M.predicted among non-blacks MDRD (S/P/Bld) [Vol rate/Area] 109 mL/min/{1.73_m2} Normal >60 [facility] Comment on above: Order Comment: 205 Result Comment: mL/m in/1.73m2 CKD-EPI Creatinine Equation (2020) Performed By: #### L 3300.9900, L100.0500, L501.5200, L501.2300, L500.4050, L501.5000 ####[facility] [address] [place], [address] Globulin (S) [Mass/Vol] 2.9 g/dL Normal 2.2-4.2 [facility] Comment on above: Order Comment: 205 Performed By: #### L 3300.9900, L100.0500, L501.5200, L501.2300, L500.4050, L501.5000 ####[facility] [address] [place], [address] Glucose [Mass/Vol] 221 mg/dL High 70-99 [facility] Comment on above: Order Comment: 205 Performed By: #### L 3300.9900, L100.0500, L501.5200, L501.2300, L500.4050, L501.5000 ####[facility] [address] [place], [address] Potassium [Moles/Vol] 4.1 mmol/L Normal 3.3-5.1 [facility] Comment on above: Order Comment: 205 Performed By: #### L 3300.9900, L100.0500, L501.5200, L501.2300, L500.4050, L501.5000 ####[facility] [address] [place], [address] Sodium [Moles/Vol] 133 mmol/L Normal 133-145 [facility] Comment on above: Order Comment: 205 Performed By: #### L 3300.9900, L100.0500, L501.5200, L501.2300, L500.4050, L501.5000 ####[facility] [address] [place], [address] T PROT 5.4 g/dL Low 5.9-8.4 [facility] Comment on above: Order Comment: 205 Performed By: #### L 3300.9900, L100.0500, L501.5200, L501.2300, L500.4050, L501.5000 ####[facility] [address] [place], [address] Urea nitrogen [Mass/Vol] 20 mg/dL High 4-19 [facility] Comment on above: Order Comment: 205 Performed By: #### L 3300.9900, L100.0500, L501.5200, L501.2300, L500.4050, L501.5000 ####[facility] [address] [place], [address] Emergency Department Summary on 10-30-2024 Emergency Department Summary Normal [facility] Eosinophil percentageOrdered By: Jesus Curtis on 10-30-2024 Eosinophils/100 WBC (Bld) 2.5 % 0-5 [facility] Erythrocyte distribution wid th ratioOrdered By: Jesus Curtis on 10-30-2024 Erythrocyte distribution width (RBC) [Ratio] 17.5 % High 11.6-14.6 [facility] Erythrocyte distribution wid th ratioOrdered By: Olya Piña on 10-30-2024 Erythrocyte distribution width (RBC) [Ratio] 17.5 % High 11.6-14.6 [facility] Erythrocyte distribution wid th standard deviationOrdered By: Jesus Curtis on 10-30-2024 Erythrocyte distribution width (RBC) [Ratio] 44.6 fl High 35.1-43.9 [facility] Erythrocyte distribution wid th standard deviationOrdered By: Olya Piña on 10-30-2024 Erythrocyte distribution width (RBC) [Ratio] 45.7 fl High 35.1-43.9 [facility] Glomerular filtration rate ( GFR) estimation/1.73 sq m using serum, plasma, or whole bOrdered By: Jesus Curtis on 10-30-2024 GFR/1.73 sq M.predicted among non-blacks MDRD (S/P/Bld) [Vol rate/Area] 111 mL/min/{1.73_m2} >60 [facility] Glomerular filtration rate ( GFR) estimation/1.73 sq m using serum, plasma, or whole bOrdered By: Olya Piña on 10-30-2024 GFR/1.73 sq M.predicted among non-blacks MDRD (S/P/Bld) [Vol rate/Area] 109 mL/min/{1.73_m2} >60 [facility] Hematocrit Auto (Bld) [Volum e fraction]Ordered By: Jesus Curtis on 10-30-2024 Hematocrit (Bld) [Volume fraction] 22.9 % Low 37-47 [facility] Hematocrit Auto (Bld) [Volum e fraction]Ordered By: Olya Piña on 10-30-2024 Hematocrit (Bld) [Volume fraction] 23.2 % Low 37-47 [facility] Hemoglobin measurementOrdere d By: Jesus Curtis on 10-30-2024 Hemoglobin (Bld) [Mass/Vol] 7.4 g/dL Low 12.0-15.0 [facility] Hemoglobin measurementOrdere d By: Olya Piña on 10-30-2024 Hemoglobin (Bld) [Mass/Vol] 7.3 g/dL Low 12.0-15.0 [facility] Immature granulocytes/100 WB C Auto (Bld)Ordered By: Jesus Curtis on 10-30-2024 Immature granulocytes/100 WBC (Bld) 0.400 % 0.0-0.9 [facility] MCV (mean corpuscular volume ) determinationOrdered By: Jesus Curtis on 10-30-2024 MCV (RBC) [Entitic vol] 71.3 fL Low 81-99 [facility] MCV (mean corpuscular volume ) determinationOrdered By: Olya Piña on 10-30-2024 MCV (RBC) [Entitic vol] 72.5 fL Low 81-99 [facility] Magnesiumon 10-30-2024 Magnesium [Mass/Vol] 2.0 mg/dL Normal 1.5-2.2 [facility] Comment on above: Order Comment: 205 Performed By: #### L 3300.9900, L100.0500, L501.5200, L501.2300, L500.4050, L501.5000 ####[facility] [address] [place], [place], [id number] Magnesium measurement (mass/ volume)Ordered By: Olya Piña on 10-30-2024 Magnesium (Unsp spec) [Mass/Vol] 2.0 mg/dL 1.5-2.2 [facility] Mean corpuscular hemoglobin (MCH) determinationOrdered By: Jesus Curtis on 10-30-2024 MCH (RBC) [Entitic mass] 23.1 pg Low 27.0-32.0 [facility] Mean corpuscular hemoglobin (MCH) determinationOrdered By: Olya Piña on 10-30-2024 MCH (RBC) [Entitic mass] 22.8 pg Low 27.0-32.0 [facility] Monocyte percentageOrdered B y: Jesus Curtis on 10-30-2024 Monocytes/100 WBC (Bld) 11.0 % High 0-10 [facility] Neutrophil percentageOrdered By: Jesus Curtis on 10-30-2024 Neutrophils/100 WBC (Bld) 74.2 % High 47-70 [facility] No Panel InformationOrdered By: Jesus Curtis on 10-30-2024 48 U/L High <32 [facility] No Panel InformationOrdered By: Olya Piña on 10-30-2024 37 U/L High <32 [facility] Phosphoruson 10-30-2024 Phosphate [Mass/Vol] 3.4 mg/dL Normal 2.7-4.5 [facility] Comment on above: Order Comment: 205 Performed By: #### L 3300.9900, L100.0500, L501.5200, L501.2300, L500.4050, L501.5000 ####[facility] [address] [place], [address] Platelet countOrdered By: Levi Curtis on 10-30-2024 Platelets (Bld) [#/Vol] 267 10*3/uL 150-450 [facility] Platelet countOrdered By: Moe Piña on 10-30-2024 Platelets (Bld) [#/Vol] 221 10*3/uL 150-450 [facility] Potassium measurement (mass/ volume)Ordered By: Jesus Curtis on 10-30-2024 Potassium (Unsp spec) [Mass/Vol] 3.8 mmol/L 3.3-5.1 [facility] Potassium measurement (mass/ volume)Ordered By: Olya Piña on 10-30-2024 Potassium (Unsp spec) [Mass/Vol] 4.1 mmol/L 3.3-5.1 [facility] Prothrombin timeOrdered By: Jesus Curtis on 10-30-2024 PT Coag (PPP) [Time] 14.8 s 11.7-14.9 [facility] RBC Auto (Bld) [#/Vol]Ordere d By: Jesus Curtis on 10-30-2024 RBC (Bld) [#/Vol] 3.21 10*6/uL Low 4.2-5.4 [facility] RBC Auto (Bld) [#/Vol]Ordere d By: Olya Piña on 10-30-2024 RBC (Bld) [#/Vol] 3.20 10*6/uL Low 4.2-5.4 [facility] Serum creatinine measurement (mass/volume)Ordered By: Jesus Curtis on 10-30-2024 Creatinine [Mass/Vol] 0.34 mg/dL Low 0.70-1.20 [facility] Serum creatinine measurement (mass/volume)Ordered By: Olya Piña on 10-30-2024 Creatinine [Mass/Vol] 0.38 mg/dL Low 0.70-1.20 [facility] Serum globulin measurementOr dered By: Jesus Curtis on 10-30-2024 Globulin (S) [Mass/Vol] 3.1 g/dL 2.2-4.2 [facility] Serum globulin measurementOr dered By: Olya Piña on 10-30-2024 Globulin (S) [Mass/Vol] 2.9 g/dL 2.2-4.2 [facility] Serum glucose measurement (m ass/volume)Ordered By: Jesus Curtis on 10-30-2024 Glucose [Mass/Vol] 31 mg/dL Low 70-99 [facility] Serum glucose measurement (m ass/volume)Ordered By: Olya Piña on 10-30-2024 Glucose [Mass/Vol] 221 mg/dL High 70-99 [facility] Serum or plasma alanine juarez otransferase (ALT) measurementOrdered By: Jesus Curtis on 10-30-2024 ALT [Catalytic activity/Vol] 60 U/L High <35 [facility] Serum or plasma alanine juarez otransferase (ALT) measurementOrdered By: Olya Piña on 10-30-2024 ALT [Catalytic activity/Vol] 61 U/L High <35 [facility] Serum or plasma albumin cherelle urement (mass/volume)Ordered By: Jesus Curtis on 10-30-2024 Albumin [Mass/Vol] 2.4 g/dL Low 3.4-4.8 [facility] Serum or plasma albumin cherelle urement (mass/volume)Ordered By: Olya Piña on 10-30-2024 Albumin [Mass/Vol] 2.5 g/dL Low 3.4-4.8 [facility] Serum or plasma albumin/glob ulin mass ratioOrdered By: Jesus Curtis on 10-30-2024 Albumin/Globulin [Mass ratio] 0.8 {ratio} Low 0.9-2.4 [facility] Serum or plasma albumin/glob ulin mass ratioOrdered By: Olya Piña on 10-30-2024 Albumin/Globulin [Mass ratio] 0.8 {ratio} Low 0.9-2.4 [facility] Serum or plasma alkaline piotr sphatase measurementOrdered By: Jesus Curtis on 10-30-2024 ALP [Catalytic activity/Vol] 311 U/L High 35-104 [facility] Serum or plasma alkaline piotr sphatase measurementOrdered By: Olya Piña on 10-30-2024 ALP [Catalytic activity/Vol] 340 U/L High 35-104 [facility] Serum or plasma calcium cherelle urement (mass/volume)Ordered By: Jesus Curtis on 10-30-2024 Calcium [Mass/Vol] 8.4 mg/dL 7.6-11.0 [facility] Serum or plasma calcium cherelle urement (mass/volume)Ordered By: Olya Piña on 10-30-2024 Calcium [Mass/Vol] 7.9 mg/dL 7.6-11.0 [facility] Serum or plasma urea nitroge n measurement (mass/volume)Ordered By: Jesus Curtis on 10-30-2024 Urea nitrogen [Mass/Vol] 19 mg/dL 4-19 [facility] Serum or plasma urea nitroge n measurement (mass/volume)Ordered By: Olya Piña on 10-30-2024 Urea nitrogen [Mass/Vol] 20 mg/dL High 09-16 [facility] Sodium levelOrdered By: Lewis Curtis on 10-30-2024 Sodium [Moles/Vol] 135 mmol/L 133-145 [facility] Sodium levelOrdered By: Deisy Piña on 10-30-2024 Sodium [Moles/Vol] 133 mmol/L 133-145 [facility] Total proteinOrdered By: Nenita Curtis on 10-30-2024 Protein [Mass/Vol] 5.5 g/dL Low 5.9-8.4 [facility] Total proteinOrdered By: Em Piña on 10-30-2024 Protein [Mass/Vol] 5.4 g/dL Low 5.9-8.4 [facility] Triglycerideson 10-30-2024 Triglyceride [Mass/Vol] 80 mg/dL Normal [facility] Comment on above: Order Comment: 205 Result Comment: The drugs N-Acetylcysteine and Metamizole may falselydepress this assay.Normal range: <150 mg/dLBorderline High: 150-199 mg/dLHigh: 200-499 mg/dLVery High: >500 mg/dL Performed By: #### L 3300.9900, L100.0500, L501.5200, L501.2300, L500.4050, L501.5000 ####[facility] [address] [place], [address] White blood cell (WBC) count Ordered By: Jesus Curtis on 10-30-2024 WBC (Bld) [#/Vol] 11.9 10*3/uL High 4.4-11.0 [facility] White blood cell (WBC) count Ordered By: Olya Piña on 10-30-2024 WBC (Bld) [#/Vol] 19.4 10*3/uL High 4.4-11.0 [facility] Zinc, WHOLE BLOODon 10-31-19 25 Zinc Whole Bld Normal [facility] Comment on above: Order Comment: 205 Result Comment: TEST RESULTS MALACHIZinc, Whole Blood, 439 Low ug/dL 440-860 _ TESTING PERFORMED AT [facility]. ORIGINAL REPORT ON FILE IN LAB CONTAINS ADDITIONAL TEST SITE INFORMATION. Performed By: #### L 501.5200, L501.2300, L3300.9910, L501.5000, L100.0500, L500.4050 ####[facility] [address] [place], [place], [id number] Anion gap in Serum or Plasma Ordered By: Olya Piña on 10-26-2024 Anion gap [Moles/Vol] 9 mmol/L 5-15 [facility] BUN/creatinine ratioOrdered By: Olya Piña on 10-26-2024 Urea nitrogen/Creatinine [Mass ratio] 71.8 mg/mg High 10-20 [facility] Bilirubin, totalOrdered By: Olya Piña on 10-26-2024 Bilirubin [Mass/Vol] 0.35 mg/dL 0.00-1.30 [facility] CBC-Complete Blood Cnt No Di ffon 10-26-2024 Erythrocyte distribution width (RBC) [Ratio] 17.2 % High 11.6-14.6 [facility] Comment on above: Performed By: #### L 100.0500, L501.2300, L501.5200, L500.4050 ####[facility] [address] [place], [address] Hematocrit (Bld) [Volume fraction] 23.6 % Low 37-47 [facility] Comment on above: Performed By: #### L 100.0500, L501.2300, L501.5200, L500.4050 ####[facility] [address] [place], [address] Hemoglobin (Bld) [Mass/Vol] 7.5 g/dL Low 12.0-15.0 [facility] Comment on above: Performed By: #### L 100.0500, L501.2300, L501.5200, L500.4050 ####[facility] [address] [place], [address] MCH (RBC) [Entitic mass] 23.1 pg Low 27.0-32.0 [facility] Comment on above: Performed By: #### L 100.0500, L501.2300, L501.5200, L500.4050 ####[facility] [address] [place], [address] MCHC (RBC) [Mass/Vol] 31.8 g/dL Low 32-36 [facility] Comment on above: Performed By: #### L 100.0500, L501.2300, L501.5200, L500.4050 ####[facility] [address] [place], [address] MCV (RBC) [Entitic vol] 72.8 fL Low 81-99 [facility] Comment on above: Performed By: #### L 100.0500, L501.2300, L501.5200, L500.4050 ####[facility] [address] [place], [address] Platelet mean volume (Bld) [Entitic vol] 11.9 fL Normal 6.2-12.0 [facility] Comment on above: Performed By: #### L 100.0500, L501.2300, L501.5200, L500.4050 ####[facility] [address] [place], [address] Platelets (Bld) [#/Vol] 253 10*3/uL Normal 150-450 [facility] Comment on above: Performed By: #### L 100.0500, L501.2300, L501.5200, L500.4050 ####[facility] [address] [place], [address] RBC (Bld) [#/Vol] 3.24 10*6/uL Low 4.2-5.4 [facility] Comment on above: Performed By: #### L 100.0500, L501.2300, L501.5200, L500.4050 ####[facility] [address] [place], [address] RDW SD 45.8 fl High 35.1-43.9 [facility] Comment on above: Performed By: #### L 100.0500, L501.2300, L501.5200, L500.4050 ####[facility] [address] [place], [address] WBC (Bld) [#/Vol] 11.3 10*3/uL High 4.4-11.0 [facility] Comment on above: Performed By: #### L 100.0500, L501.2300, L501.5200, L500.4050 ####[facility] [address] [place], [address] Carbon dioxide, total [Moles /volume] in Central venous bloodOrdered By: Olya Piña on 10-26-2024 CO2 [Moles/Vol] 23.1 mmol/L 21.0-32.0 [facility] Chloride assayOrdered By: Moe Piña on 10-26-2024 Chloride [Moles/Vol] 101 mmol/L 98-108 [facility] Comprehensive Metabolic Prof ilon 10-26-2024 Albumin [Mass/Vol] 2.4 g/dL Low 3.4-4.8 [facility] Comment on above: Performed By: #### L 100.0500, L501.2300, L501.5200, L500.4050 ####[facility] [address] [place], [address] Albumin/Globulin [Mass ratio] 0.8 {ratio} Low 0.9-2.4 [facility] Comment on above: Performed By: #### L 100.0500, L501.2300, L501.5200, L500.4050 ####[facility] [address] [place], [address] ALK PHOS 357 U/L High 35-104 [facility] Comment on above: Performed By: #### L 100.0500, L501.2300, L501.5200, L500.4050 ####[facility] [address], [address] ALT [Catalytic activity/Vol] 57 U/L High <=34 [facility] Comment on above: Performed By: #### L 100.0500, L501.2300, L501.5200, L500.4050 ####[facility] [address], [address] AST [Catalytic activity/Vol] 44 U/L High <=31 [facility] Comment on above: Performed By: #### L 100.0500, L501.2300, L501.5200, L500.4050 ####[facility] [address] [place], [address] Bilirubin [Mass/Vol] 0.35 mg/dL Normal 0.00-1.30 [facility] Comment on above: Performed By: #### L 100.0500, L501.2300, L501.5200, L500.4050 ####[facility] [address] [place], [address] BUN/CRE 71.8 RATIO High 10-20 [facility] Comment on above: Performed By: #### L 100.0500, L501.2300, L501.5200, L500.4050 ####[facility] [address] [place], [address] Calcium [Mass/Vol] 8.0 mg/dL Normal 7.6-11.0 [facility] Comment on above: Performed By: #### L 100.0500, L501.2300, L501.5200, L500.4050 ####[facility] [address] [place], [address] Chloride [Moles/Vol] 101 mmol/L Normal 98-108 [facility] Comment on above: Performed By: #### L 100.0500, L501.2300, L501.5200, L500.4050 ####[facility] [address] [place], [address] CO2 [Moles/Vol] 23.1 mmol/L Normal 21.0-32.0 [facility] Comment on above: Performed By: #### L 100.0500, L501.2300, L501.5200, L500.4050 ####[facility] [address] [place], [address] Creatinine [Mass/Vol] 0.29 mg/dL Low 0.70-1.20 [facility] Comment on above: Performed By: #### L 100.0500, L501.2300, L501.5200, L500.4050 ####[facility] [address] [place], [address] GAP 9 Normal 5-15 [facility] Comment on above: Performed By: #### L 100.0500, L501.2300, L501.5200, L500.4050 ####[facility] [address] [place], [address] GFR/1.73 sq M.predicted among non-blacks MDRD (S/P/Bld) [Vol rate/Area] 116 mL/min/{1.73_m2} Normal >60 [facility] Comment on above: Result Comment: mL/m in/1.73m2 CKD-EPI Creatinine Equation (2020) Performed By: #### L 100.0500, L501.2300, L501.5200, L500.4050 ####[facility] [address] [place], [address] Globulin (S) [Mass/Vol] 3.1 g/dL Normal 2.2-4.2 [facility] Comment on above: Performed By: #### L 100.0500, L501.2300, L501.5200, L500.4050 ####[facility] [address] [place], [address] Glucose [Mass/Vol] 133 mg/dL High 70-99 [facility] Comment on above: Performed By: #### L 100.0500, L501.2300, L501.5200, L500.4050 ####[facility] [address] [place], [address] Potassium [Moles/Vol] 4.6 mmol/L Normal 3.3-5.1 [facility] Comment on above: Performed By: #### L 100.0500, L501.2300, L501.5200, L500.4050 ####[facility] [address] [place], [address] Sodium [Moles/Vol] 133 mmol/L Normal 133-145 [facility] Comment on above: Performed By: #### L 100.0500, L501.2300, L501.5200, L500.4050 ####[facility] [address] [place], [address] T PROT 5.5 g/dL Low 5.9-8.4 [facility] Comment on above: Performed By: #### L 100.0500, L501.2300, L501.5200, L500.4050 ####[facility] [address] [place], [address] Urea nitrogen [Mass/Vol] 21 mg/dL High 4-19 [facility] Comment on above: Performed By: #### L 100.0500, L501.2300, L501.5200, L500.4050 ####[facility] [address] [place], [place], [id number] Erythrocyte distribution wid th ratioOrdered By: Olya Piña on 10-26-2024 Erythrocyte distribution width (RBC) [Ratio] 17.2 % High 11.6-14.6 [facility] Erythrocyte distribution wid th standard deviationOrdered By: Olya Piña on 10-26-2024 Erythrocyte distribution width (RBC) [Ratio] 45.8 fl High 35.1-43.9 [facility] Glomerular filtration rate ( GFR) estimation/1.73 sq m using serum, plasma, or whole bOrdered By: Olya Piña on 10-26-2024 GFR/1.73 sq M.predicted among non-blacks MDRD (S/P/Bld) [Vol rate/Area] 116 mL/min/{1.73_m2} >60 [facility] Hematocrit Auto (Bld) [Volum e fraction]Ordered By: Olya Piña on 10-26-2024 Hematocrit (Bld) [Volume fraction] 23.6 % Low 37-47 [facility] Hemoglobin measurementOrdere d By: Olya Piña on 10-26-2024 Hemoglobin (Bld) [Mass/Vol] 7.5 g/dL Low 12.0-15.0 [facility] MCV (mean corpuscular volume ) determinationOrdered By: Olya Piña on 10-26-2024 MCV (RBC) [Entitic vol] 72.8 fL Low 81-99 [facility] Magnesiumon 10-26-2024 Magnesium [Mass/Vol] 2.1 mg/dL Normal 1.5-2.2 [facility] Comment on above: Performed By: #### L 100.0500, L501.2300, L501.5200, L500.4050 ####[facility] [address] [place], [address] Magnesium measurement (mass/ volume)Ordered By: Olya Piña on 10-26-2024 Magnesium (Unsp spec) [Mass/Vol] 2.1 mg/dL 1.5-2.2 [facility] Mean corpuscular hemoglobin (MCH) determinationOrdered By: Olya Piña on 10-26-2024 MCH (RBC) [Entitic mass] 23.1 pg Low 27.0-32.0 [facility] No Panel InformationOrdered By: Olya Piña on 10-26-2024 44 U/L High <32 [facility] Phosphoruson 10-26-2024 Phosphate [Mass/Vol] 3.4 mg/dL Normal 2.7-4.5 [facility] Comment on above: Performed By: #### L 100.0500, L501.2300, L501.5200, L500.4050 ####[facility] [address] [place], [address] Platelet countOrdered By: Moe Piña on 10-26-2024 Platelets (Bld) [#/Vol] 253 10*3/uL 150-450 [facility] Potassium measurement (mass/ volume)Ordered By: Olya Piña on 10-26-2024 Potassium (Unsp spec) [Mass/Vol] 4.6 mmol/L 3.3-5.1 [facility] RBC Auto (Bld) [#/Vol]Ordere d By: Olya Piña on 10-26-2024 RBC (Bld) [#/Vol] 3.24 10*6/uL Low 4.2-5.4 [facility] Serum creatinine measurement (mass/volume)Ordered By: Olya Piña on 10-26-2024 Creatinine [Mass/Vol] 0.29 mg/dL Low 0.70-1.20 [facility] Serum globulin measurementOr dered By: Olya Piña on 10-26-2024 Globulin (S) [Mass/Vol] 3.1 g/dL 2.2-4.2 [facility] Serum glucose measurement (m ass/volume)Ordered By: Olya Piña on 10-26-2024 Glucose [Mass/Vol] 133 mg/dL High 70-99 [facility] Serum or plasma alanine juarez otransferase (ALT) measurementOrdered By: Olya Piña on 10-26-2024 ALT [Catalytic activity/Vol] 57 U/L High <35 [facility] Serum or plasma albumin cherelle urement (mass/volume)Ordered By: Olya Piña on 10-26-2024 Albumin [Mass/Vol] 2.4 g/dL Low 3.4-4.8 [facility] Serum or plasma albumin/glob ulin mass ratioOrdered By: Olya Piña on 10-26-2024 Albumin/Globulin [Mass ratio] 0.8 {ratio} Low 0.9-2.4 [facility] Serum or plasma alkaline piotr sphatase measurementOrdered By: Olya Piña on 10-26-2024 ALP [Catalytic activity/Vol] 357 U/L High 35-104 [facility] Serum or plasma calcium cherelle urement (mass/volume)Ordered By: Olya Piña on 10-26-2024 Calcium [Mass/Vol] 8.0 mg/dL 7.6-11.0 [facility] Serum or plasma urea nitroge n measurement (mass/volume)Ordered By: Olya Piña on 10-26-2024 Urea nitrogen [Mass/Vol] 21 mg/dL High 4-19 [facility] Sodium levelOrdered By: Deisy Piña on 10-26-2024 Sodium [Moles/Vol] 133 mmol/L 133-145 [facility] Total proteinOrdered By: Em Piña on 10-26-2024 Protein [Mass/Vol] 5.5 g/dL Low 5.9-8.4 [facility] White blood cell (WBC) count Ordered By: Olya Piña on 10-26-2024 WBC (Bld) [#/Vol] 11.3 10*3/uL High 4.4-11.0 [facility] Anion gap in Serum or Plasma Ordered By: Olya Piña on 10-24-2024 Anion gap [Moles/Vol] 8 mmol/L 5-15 [facility] BUN/creatinine ratioOrdered By: Olya Piña on 10-24-2024 Urea nitrogen/Creatinine [Mass ratio] 42.6 mg/mg High 10-20 [facility] Bilirubin, totalOrdered By: Olya Piña on 10-24-2024 Bilirubin [Mass/Vol] 0.30 mg/dL 0.00-1.30 [facility] CBC-Complete Blood Cnt No Di ffon 10-24-2024 Erythrocyte distribution width (RBC) [Ratio] 17.6 % High 11.6-14.6 [facility] Comment on above: Order Comment: 205 Performed By: #### L 501.5200, L501.2300, L3300.9910, L501.5000, L100.0500, L500.4050 ####[facility] [address] [place], [address] Hematocrit (Bld) [Volume fraction] 24.9 % Low 37-47 [facility] Comment on above: Order Comment: 205 Performed By: #### L 501.5200, L501.2300, L3300.9910, L501.5000, L100.0500, L500.4050 ####[facility] [address] [place], [address] Hemoglobin (Bld) [Mass/Vol] 7.8 g/dL Low 12.0-15.0 [facility] Comment on above: Order Comment: 205 Performed By: #### L 501.5200, L501.2300, L3300.9910, L501.5000, L100.0500, L500.4050 ####[facility] [address] [place], [address] MCH (RBC) [Entitic mass] 22.9 pg Low 27.0-32.0 [facility] Comment on above: Order Comment: 205 Performed By: #### L 501.5200, L501.2300, L3300.9910, L501.5000, L100.0500, L500.4050 ####[facility] [address] [place], [address] MCHC (RBC) [Mass/Vol] 31.3 g/dL Low 32-36 [facility] Comment on above: Order Comment: 205 Performed By: #### L 501.5200, L501.2300, L3300.9910, L501.5000, L100.0500, L500.4050 ####[facility] [address] [place], [address] MCV (RBC) [Entitic vol] 73.0 fL Low 81-99 [facility] Comment on above: Order Comment: 205 Performed By: #### L 501.5200, L501.2300, L3300.9910, L501.5000, L100.0500, L500.4050 ####[facility] [address] [place], [address] Platelet mean volume (Bld) [Entitic vol] 12.1 fL High 6.2-12.0 [facility] Comment on above: Order Comment: 205 Performed By: #### L 501.5200, L501.2300, L3300.9910, L501.5000, L100.0500, L500.4050 ####[facility] [address] [place], [address] Platelets (Bld) [#/Vol] 289 10*3/uL Normal 150-450 [facility] Comment on above: Order Comment: 205 Performed By: #### L 501.5200, L501.2300, L3300.9910, L501.5000, L100.0500, L500.4050 ####[facility] [address] [place], [address] RBC (Bld) [#/Vol] 3.41 10*6/uL Low 4.2-5.4 [facility] Comment on above: Order Comment: 205 Performed By: #### L 501.5200, L501.2300, L3300.9910, L501.5000, L100.0500, L500.4050 ####[facility] [address] [place], [address] RDW SD 46.1 fl High 35.1-43.9 [facility] Comment on above: Order Comment: 205 Performed By: #### L 501.5200, L501.2300, L3300.9910, L501.5000, L100.0500, L500.4050 ####[facility] [address] [place], [address] WBC (Bld) [#/Vol] 8.6 10*3/uL Normal 4.4-11.0 [facility] Comment on above: Order Comment: 205 Performed By: #### L 501.5200, L501.2300, L3300.9910, L501.5000, L100.0500, L500.4050 ####[facility] [address] [place], [address] Carbon dioxide, total [Moles /volume] in Central venous bloodOrdered By: Olya Piña on 10-24-2024 CO2 [Moles/Vol] 22.5 mmol/L 21.0-32.0 [facility] Chloride assayOrdered By: Moe Piña on 10-24-2024 Chloride [Moles/Vol] 100 mmol/L 98-108 [facility] Comprehensive Metabolic Prof ilon 10-24-2024 Albumin [Mass/Vol] 2.5 g/dL Low 3.4-4.8 [facility] Comment on above: Order Comment: 205 Performed By: #### L 501.5200, L501.2300, L3300.9910, L501.5000, L100.0500, L500.4050 ####[facility] [address] [place], [address] Albumin/Globulin [Mass ratio] 0.9 {ratio} Normal 0.9-2.4 [facility] Comment on above: Order Comment: 205 Performed By: #### L 501.5200, L501.2300, L3300.9910, L501.5000, L100.0500, L500.4050 ####[facility] [address] [place], [address] ALK PHOS 406 U/L High 35-104 [facility] Comment on above: Order Comment: 205 Performed By: #### L 501.5200, L501.2300, L3300.9910, L501.5000, L100.0500, L500.4050 ####[facility] [address] [place], [address] ALT [Catalytic activity/Vol] 63 U/L High <=34 [facility] Comment on above: Order Comment: 205 Performed By: #### L 501.5200, L501.2300, L3300.9910, L501.5000, L100.0500, L500.4050 ####[facility] [address] [place], [address] AST [Catalytic activity/Vol] 44 U/L High <=31 [facility] Comment on above: Order Comment: 205 Performed By: #### L 501.5200, L501.2300, L3300.9910, L501.5000, L100.0500, L500.4050 ####[facility] [address] [place], [address] Bilirubin [Mass/Vol] 0.30 mg/dL Normal 0.00-1.30 [facility] Comment on above: Order Comment: 205 Performed By: #### L 501.5200, L501.2300, L3300.9910, L501.5000, L100.0500, L500.4050 ####[facility] [address] [place], [address] BUN/CRE 42.6 RATIO High 10-20 [facility] Comment on above: Order Comment: 205 Performed By: #### L 501.5200, L501.2300, L3300.9910, L501.5000, L100.0500, L500.4050 ####[facility] [address] [place], [address] Calcium [Mass/Vol] 7.9 mg/dL Normal 7.6-11.0 [facility] Comment on above: Order Comment: 205 Performed By: #### L 501.5200, L501.2300, L3300.9910, L501.5000, L100.0500, L500.4050 ####[facility] [address] [place], [address] Chloride [Moles/Vol] 100 mmol/L Normal 98-108 [facility] Comment on above: Order Comment: 205 Performed By: #### L 501.5200, L501.2300, L3300.9910, L501.5000, L100.0500, L500.4050 ####[facility] [address] [place], [address] CO2 [Moles/Vol] 22.5 mmol/L Normal 21.0-32.0 [facility] Comment on above: Order Comment: 205 Performed By: #### L 501.5200, L501.2300, L3300.9910, L501.5000, L100.0500, L500.4050 ####[facility] [address] [place], [address] Creatinine [Mass/Vol] 0.36 mg/dL Low 0.70-1.20 [facility] Comment on above: Order Comment: 205 Performed By: #### L 501.5200, L501.2300, L3300.9910, L501.5000, L100.0500, L500.4050 ####[facility] [address] [place], [address] GAP 8 Normal 5-15 [facility] Comment on above: Order Comment: 205 Performed By: #### L 501.5200, L501.2300, L3300.9910, L501.5000, L100.0500, L500.4050 ####[facility] [address] [place], [address] GFR/1.73 sq M.predicted among non-blacks MDRD (S/P/Bld) [Vol rate/Area] 110 mL/min/{1.73_m2} Normal >60 [facility] Comment on above: Order Comment: 205 Result Comment: mL/m in/1.73m2 CKD-EPI Creatinine Equation (2020) Performed By: #### L 501.5200, L501.2300, L3300.9910, L501.5000, L100.0500, L500.4050 ####[facility] [address] [place], [address] Globulin (S) [Mass/Vol] 2.9 g/dL Normal 2.2-4.2 [facility] Comment on above: Order Comment: 205 Performed By: #### L 501.5200, L501.2300, L3300.9910, L501.5000, L100.0500, L500.4050 ####[facility] [address] [place], [address] Glucose [Mass/Vol] 257 mg/dL High 70-99 [facility] Comment on above: Order Comment: 205 Performed By: #### L 501.5200, L501.2300, L3300.9910, L501.5000, L100.0500, L500.4050 ####[facility] [address] [place], [address] Potassium [Moles/Vol] 4.4 mmol/L Normal 3.3-5.1 [facility] Comment on above: Order Comment: 205 Performed By: #### L 501.5200, L501.2300, L3300.9910, L501.5000, L100.0500, L500.4050 ####[facility] [address] [place], [address] Sodium [Moles/Vol] 131 mmol/L Low 133-145 [facility] Comment on above: Order Comment: 205 Performed By: #### L 501.5200, L501.2300, L3300.9910, L501.5000, L100.0500, L500.4050 ####[facility] [address] [place], [address] T PROT 5.5 g/dL Low 5.9-8.4 [facility] Comment on above: Order Comment: 205 Performed By: #### L 501.5200, L501.2300, L3300.9910, L501.5000, L100.0500, L500.4050 ####[facility] [address] [place], [address] Urea nitrogen [Mass/Vol] 15 mg/dL Normal 4-19 [facility] Comment on above: Order Comment: 205 Performed By: #### L 501.5200, L501.2300, L3300.9910, L501.5000, L100.0500, L500.4050 ####[facility] [address] [place], [address] Erythrocyte distribution wid th ratioOrdered By: Olya Piña on 10-24-2024 Erythrocyte distribution width (RBC) [Ratio] 17.6 % High 11.6-14.6 [facility] Erythrocyte distribution wid th standard deviationOrdered By: Olya Piña on 10-24-2024 Erythrocyte distribution width (RBC) [Ratio] 46.1 fl High 35.1-43.9 [facility] Glomerular filtration rate ( GFR) estimation/1.73 sq m using serum, plasma, or whole bOrdered By: Olya Piña on 10-24-2024 GFR/1.73 sq M.predicted among non-blacks MDRD (S/P/Bld) [Vol rate/Area] 110 mL/min/{1.73_m2} >60 [facility] Hematocrit Auto (Bld) [Volum e fraction]Ordered By: Olya Piña on 10-24-2024 Hematocrit (Bld) [Volume fraction] 24.9 % Low 37-47 [facility] Hemoglobin measurementOrdere d By: Olya Piña on 10-24-2024 Hemoglobin (Bld) [Mass/Vol] 7.8 g/dL Low 12.0-15.0 [facility] MCV (mean corpuscular volume ) determinationOrdered By: Olya Piña on 10-24-2024 MCV (RBC) [Entitic vol] 73.0 fL Low 81-99 [facility] Magnesiumon 10-24-2024 Magnesium [Mass/Vol] 2.1 mg/dL Normal 1.5-2.2 [facility] Comment on above: Order Comment: 205 Performed By: #### L 501.5200, L501.2300, L3300.9910, L501.5000, L100.0500, L500.4050 ####[facility] [address] [place], [address] Magnesium measurement (mass/ volume)Ordered By: Olya Piña on 10-24-2024 Magnesium (Unsp spec) [Mass/Vol] 2.1 mg/dL 1.5-2.2 [facility] Mean corpuscular hemoglobin (MCH) determinationOrdered By: Olyaleslie Piña on 10-24-2024 MCH (RBC) [Entitic mass] 22.9 pg Low 27.0-32.0 [facility] No Panel InformationOrdered By: Olyaleslie Piña on 10-24-2024 44 U/L High <32 [facility] Phosphoruson 10-24-2024 Phosphate [Mass/Vol] 3.1 mg/dL Normal 2.7-4.5 [facility] Comment on above: Order Comment: 205 Performed By: #### L 501.5200, L501.2300, L3300.9910, L501.5000, L100.0500, L500.4050 ####[facility] [address] [place], [address] Platelet countOrdered By: Moe Piña on 10-24-2024 Platelets (Bld) [#/Vol] 289 10*3/uL 150-450 [facility] Potassium measurement (mass/ volume)Ordered By: Olya Piña on 10-24-2024 Potassium (Unsp spec) [Mass/Vol] 4.4 mmol/L 3.3-5.1 [facility] RBC Auto (Bld) [#/Vol]Ordere d By: Olya Piña on 10-24-2024 RBC (Bld) [#/Vol] 3.41 10*6/uL Low 4.2-5.4 [facility] Serum creatinine measurement (mass/volume)Ordered By: Olya Piña on 10-24-2024 Creatinine [Mass/Vol] 0.36 mg/dL Low 0.70-1.20 [facility] Serum globulin measurementOr dered By: Olya Piña on 10-24-2024 Globulin (S) [Mass/Vol] 2.9 g/dL 2.2-4.2 [facility] Serum glucose measurement (m ass/volume)Ordered By: Olya Piña on 10-24-2024 Glucose [Mass/Vol] 257 mg/dL High 70-99 [facility] Serum or plasma alanine juarez otransferase (ALT) measurementOrdered By: Olya Piña on 10-24-2024 ALT [Catalytic activity/Vol] 63 U/L High <35 [facility] Serum or plasma albumin cherelle urement (mass/volume)Ordered By: Olya Piña on 10-24-2024 Albumin [Mass/Vol] 2.5 g/dL Low 3.4-4.8 [facility] Serum or plasma albumin/glob ulin mass ratioOrdered By: Olya Piña on 10-24-2024 Albumin/Globulin [Mass ratio] 0.9 {ratio} 0.9-2.4 [facility] Serum or plasma alkaline piotr sphatase measurementOrdered By: Olya Piña on 10-24-2024 ALP [Catalytic activity/Vol] 406 U/L High 35-104 [facility] Serum or plasma calcium cherelle urement (mass/volume)Ordered By: Olya Piña on 10-24-2024 Calcium [Mass/Vol] 7.9 mg/dL 7.6-11.0 [facility] Serum or plasma urea nitroge n measurement (mass/volume)Ordered By: Olya Piña on 10-24-2024 Urea nitrogen [Mass/Vol] 15 mg/dL 4-19 [facility] Sodium levelOrdered By: Deisy Piña on 10-24-2024 Sodium [Moles/Vol] 131 mmol/L Low 133-145 [facility] Total proteinOrdered By: Em Piña on 10-24-2024 Protein [Mass/Vol] 5.5 g/dL Low 5.9-8.4 [facility] Triglycerideson 10-24-2024 Triglyceride [Mass/Vol] 119 mg/dL Normal [facility] Comment on above: Order Comment: 205 Result Comment: The drugs N-Acetylcysteine and Metamizole may falselydepress this assay.Normal range: <150 mg/dLBorderline High: 150-199 mg/dLHigh: 200-499 mg/dLVery High: >500 mg/dL Performed By: #### L 501.5200, L501.2300, L3300.9910, L501.5000, L100.0500, L500.4050 ####[facility] [address] [place], [place], [id number] White blood cell (WBC) count Ordered By: Olya Piña on 10-24-2024 WBC (Bld) [#/Vol] 8.6 10*3/uL 4.4-11.0 [facility] Comprehensive Metabolic Prof ilon 10-19-2024 Albumin [Mass/Vol] 2.6 g/dL Low 3.4-4.8 [facility] Comment on above: Performed By: #### L 500.4050, L501.2300, L100.0500, L501.5200 ####[facility] [address] [place], [address] Albumin/Globulin [Mass ratio] 0.9 {ratio} Normal 0.9-2.4 [facility] Comment on above: Performed By: #### L 500.4050, L501.2300, L100.0500, L501.5200 ####[facility] [address] [place], [address] ALK PHOS 303 U/L High 35-104 [facility] Comment on above: Performed By: #### L 500.4050, L501.2300, L100.0500, L501.5200 ####[facility] [address] [place], [address] ALT [Catalytic activity/Vol] 115 U/L High <=34 [facility] Comment on above: Performed By: #### L 500.4050, L501.2300, L100.0500, L501.5200 ####[facility] [address] [place], [address] AST [Catalytic activity/Vol] 63 U/L High <=31 [facility] Comment on above: Performed By: #### L 500.4050, L501.2300, L100.0500, L501.5200 ####[facility] [address] [place], [address] Bilirubin [Mass/Vol] 0.29 mg/dL Normal 0.00-1.30 [facility] Comment on above: Performed By: #### L 500.4050, L501.2300, L100.0500, L501.5200 ####[facility] [address] [place], [address] BUN/CRE 67.8 RATIO High 10-20 [facility] Comment on above: Performed By: #### L 500.4050, L501.2300, L100.0500, L501.5200 ####[facility] [address] [place], [address] Calcium [Mass/Vol] 8.6 mg/dL Normal 7.6-11.0 [facility] Comment on above: Performed By: #### L 500.4050, L501.2300, L100.0500, L501.5200 ####[facility] [address] [place], [address] Chloride [Moles/Vol] 104 mmol/L Normal 98-108 [facility] Comment on above: Performed By: #### L 500.4050, L501.2300, L100.0500, L501.5200 ####[facility] [address] [place], [address] CO2 [Moles/Vol] 23.8 mmol/L Normal 21.0-32.0 [facility] Comment on above: Performed By: #### L 500.4050, L501.2300, L100.0500, L501.5200 ####[facility] [address], [address] Creatinine [Mass/Vol] 0.37 mg/dL Low 0.70-1.20 [facility] Comment on above: Performed By: #### L 500.4050, L501.2300, L100.0500, L501.5200 ####[facility] [address] [place], [address] GAP 8 Normal 5-15 [facility] Comment on above: Performed By: #### L 500.4050, L501.2300, L100.0500, L501.5200 ####[facility] [address] [place], [address] GFR/1.73 sq M.predicted among non-blacks MDRD (S/P/Bld) [Vol rate/Area] 109 mL/min/{1.73_m2} Normal >60 [facility] Comment on above: Result Comment: mL/m in/1.73m2 CKD-EPI Creatinine Equation (2020) Performed By: #### L 500.4050, L501.2300, L100.0500, L501.5200 ####[facility] [address] [place], [address] Globulin (S) [Mass/Vol] 2.7 g/dL Normal 2.2-4.2 [facility] Comment on above: Performed By: #### L 500.4050, L501.2300, L100.0500, L501.5200 ####[facility] [address] [place], [address] Glucose [Mass/Vol] 227 mg/dL High 70-99 [facility] Comment on above: Performed By: #### L 500.4050, L501.2300, L100.0500, L501.5200 ####[facility] [address] [place], [address] Potassium [Moles/Vol] 4.4 mmol/L Normal 3.3-5.1 [facility] Comment on above: Performed By: #### L 500.4050, L501.2300, L100.0500, L501.5200 ####[facility] [address] [place], [address] Sodium [Moles/Vol] 136 mmol/L Normal 133-145 [facility] Comment on above: Performed By: #### L 500.4050, L501.2300, L100.0500, L501.5200 ####[facility] [address] [place], [address] T PROT 5.3 g/dL Low 5.9-8.4 [facility] Comment on above: Performed By: #### L 500.4050, L501.2300, L100.0500, L501.5200 ####[facility] [address] [place], [address] Urea nitrogen [Mass/Vol] 25 mg/dL High 4-19 [facility] Comment on above: Performed By: #### L 500.4050, L501.2300, L100.0500, L501.5200 ####[facility] [address] [place], [address] Magnesiumon 10-19-2024 Magnesium [Mass/Vol] 1.9 mg/dL Normal 1.5-2.2 [facility] Comment on above: Performed By: #### L 500.4050, L501.2300, L100.0500, L501.5200 ####[facility] [address] [place], [address] Phosphoruson 10-19-2024 Phosphate [Mass/Vol] 2.5 mg/dL Low 2.7-4.5 [facility] Comment on above: Performed By: #### L 500.4050, L501.2300, L100.0500, L501.5200 ####[facility] [address] [place], [address] Anion gap in Serum or Plasma Ordered By: Olya Piña on 10-18-2024 Anion gap [Moles/Vol] 8 mmol/L 5- [facility] BUN/creatinine ratioOrdered By: Olya Piña on 10-18-2024 Urea nitrogen/Creatinine [Mass ratio] 67.8 mg/mg High 10- [facility] Bilirubin, totalOrdered By: Olya Piña on 10-18-2024 Bilirubin [Mass/Vol] 0.29 mg/dL 0.00-1.30 [facility] CBC-Complete Blood Cnt No Di ffon 10-18-2024 Erythrocyte distribution width (RBC) [Ratio] 17.3 % High 11.6-14.6 [facility] Comment on above: Order Comment: 205 Performed By: #### L 500.4050, L501.2300, L100.0500, L501.5200 ####[facility] [address] [place], [address] Hematocrit (Bld) [Volume fraction] 26.6 % Low 37-47 [facility] Comment on above: Order Comment: 205 Performed By: #### L 500.4050, L501.2300, L100.0500, L501.5200 ####[facility] [address] [place], [address] Hemoglobin (Bld) [Mass/Vol] 8.1 g/dL Low 12.0-15.0 [facility] Comment on above: Order Comment: 205 Performed By: #### L 500.4050, L501.2300, L100.0500, L501.5200 ####[facility] [address] [place], [address] MCH (RBC) [Entitic mass] 23.0 pg Low 27.0-32.0 [facility] Comment on above: Order Comment: 205 Performed By: #### L 500.4050, L501.2300, L100.0500, L501.5200 ####[facility] [address] [place], [address] MCHC (RBC) [Mass/Vol] 30.5 g/dL Low 32-36 [facility] Comment on above: Order Comment: 205 Performed By: #### L 500.4050, L501.2300, L100.0500, L501.5200 ####[facility] [address] [place], [address] MCV (RBC) [Entitic vol] 75.6 fL Low 81-99 [facility] Comment on above: Order Comment: 205 Performed By: #### L 500.4050, L501.2300, L100.0500, L501.5200 ####[facility] [address] [place], [address] Platelet mean volume (Bld) [Entitic vol] 11.0 fL Normal 6.2-12.0 [facility] Comment on above: Order Comment: 205 Performed By: #### L 500.4050, L501.2300, L100.0500, L501.5200 ####[facility] [address] [place], [address] Platelets (Bld) [#/Vol] 179 10*3/uL Normal 150-450 [facility] Comment on above: Order Comment: 205 Performed By: #### L 500.4050, L501.2300, L100.0500, L501.5200 ####[facility] [address] [place], [address] RBC (Bld) [#/Vol] 3.52 10*6/uL Low 4.2-5.4 [facility] Comment on above: Order Comment: 205 Performed By: #### L 500.4050, L501.2300, L100.0500, L501.5200 ####[facility] [address] [place], [address] RDW SD 47.1 fl High 35.1-43.9 [facility] Comment on above: Order Comment: 205 Performed By: #### L 500.4050, L501.2300, L100.0500, L501.5200 ####[facility] [address] [place], [address] WBC (Bld) [#/Vol] 8.1 10*3/uL Normal 4.4-11.0 [facility] Comment on above: Order Comment: 205 Performed By: #### L 500.4050, L501.2300, L100.0500, L501.5200 ####[facility] [address] [place], [address] Carbon dioxide, total [Moles /volume] in Central venous bloodOrdered By: Olya Piña on 10-18-2024 CO2 [Moles/Vol] 23.8 mmol/L 21.0-32.0 [facility] Chloride assayOrdered By: Moe Piña on 10-18-2024 Chloride [Moles/Vol] 104 mmol/L 98-108 [facility] Erythrocyte distribution wid th ratioOrdered By: Olya Piña on 10-18-2024 Erythrocyte distribution width (RBC) [Ratio] 17.3 % High 11.6-14.6 [facility] Erythrocyte distribution wid th standard deviationOrdered By: Olya Piña on 10-18-2024 Erythrocyte distribution width (RBC) [Ratio] 47.1 fl High 35.1-43.9 [facility] Glomerular filtration rate ( GFR) estimation/1.73 sq m using serum, plasma, or whole bOrdered By: Olya Piña on 10-18-2024 GFR/1.73 sq M.predicted among non-blacks MDRD (S/P/Bld) [Vol rate/Area] 109 mL/min/{1.73_m2} >60 [facility] Hematocrit Auto (Bld) [Volum e fraction]Ordered By: Olya Piña on 10-18-2024 Hematocrit (Bld) [Volume fraction] 26.6 % Low 37-47 [facility] Hemoglobin measurementOrdere d By: Olya Piña on 10-18-2024 Hemoglobin (Bld) [Mass/Vol] 8.1 g/dL Low 12.0-15.0 [facility] MCV (mean corpuscular volume ) determinationOrdered By: Olya Piña on 10-18-2024 MCV (RBC) [Entitic vol] 75.6 fL Low 81-99 [facility] Magnesium measurement (mass/ volume)Ordered By: Olya Piña on 10-18-2024 Magnesium (Unsp spec) [Mass/Vol] 1.9 mg/dL 1.5-2.2 [facility] Mean corpuscular hemoglobin (MCH) determinationOrdered By: Olya Piña on 10-18-2024 MCH (RBC) [Entitic mass] 23.0 pg Low 27.0-32.0 [facility] No Panel InformationOrdered By: Olya Piña on 10-18-2024 63 U/L High <32 [facility] Platelet countOrdered By: Moe iPña on 10-18-2024 Platelets (Bld) [#/Vol] 179 10*3/uL 150-450 [facility] Potassium measurement (mass/ volume)Ordered By: Olya Piña on 10-18-2024 Potassium (Unsp spec) [Mass/Vol] 4.4 mmol/L 3.3-5.1 [facility] RBC Auto (Bld) [#/Vol]Ordere d By: Olya Piña on 10-18-2024 RBC (Bld) [#/Vol] 3.52 10*6/uL Low 4.2-5.4 [facility] Serum creatinine measurement (mass/volume)Ordered By: Olya Piña on 10-18-2024 Creatinine [Mass/Vol] 0.37 mg/dL Low 0.70-1.20 [facility] Serum globulin measurementOr dered By: Olya Piña on 10-18-2024 Globulin (S) [Mass/Vol] 2.7 g/dL 2.2-4.2 [facility] Serum glucose measurement (m ass/volume)Ordered By: Olya Piña on 10-18-2024 Glucose [Mass/Vol] 227 mg/dL High 70-99 [facility] Serum or plasma alanine juarez otransferase (ALT) measurementOrdered By: Olya Piña on 10-18-2024 ALT [Catalytic activity/Vol] 115 U/L High <35 [facility] Serum or plasma albumin cherelle urement (mass/volume)Ordered By: Olya Piña on 10-18-2024 Albumin [Mass/Vol] 2.6 g/dL Low 3.4-4.8 [facility] Serum or plasma albumin/glob ulin mass ratioOrdered By: Olya Piña on 10-18-2024 Albumin/Globulin [Mass ratio] 0.9 {ratio} 0.9-2.4 [facility] Serum or plasma alkaline piotr sphatase measurementOrdered By: Olya Piña on 10-18-2024 ALP [Catalytic activity/Vol] 303 U/L High 35-104 [facility] Serum or plasma calcium cherelle urement (mass/volume)Ordered By: Olya Piña on 10-18-2024 Calcium [Mass/Vol] 8.6 mg/dL 7.6-11.0 [facility] Serum or plasma urea nitroge n measurement (mass/volume)Ordered By: Olya Piña on 10-18-2024 Urea nitrogen [Mass/Vol] 25 mg/dL High 4-19 [facility] Sodium levelOrdered By: Deisy Piña on 10-18-2024 Sodium [Moles/Vol] 136 mmol/L 133-145 [facility] Total proteinOrdered By: Em Piña on 10-18-2024 Protein [Mass/Vol] 5.3 g/dL Low 5.9-8.4 [facility] White blood cell (WBC) count Ordered By: Olya Piña on 10-18-2024 WBC (Bld) [#/Vol] 8.1 10*3/uL 4.4-11.0 [facility] Zinc, WHOLE BLOODon 10-19-19 25 Zinc Whole Bld 478 ug/dL Normal 440-860 [facility] Comment on above: Order Comment: Test( s) [id number]-[id number], Whole Bloodwas developed and its performance characteristicsdetermined by [employer]. It has not been cleared or approvedby the Food and Drug Administration. Result Comment: Perf ormed at: [address] [id number] Director: Elvie Fry MD, Phone: [phone] Performed By: #### L 501.5000, L3300.9910, L501.2300, L500.4050, L100.0500, L501.5200 ####[facility] [address] [place], [address] Anion gap in Serum or Plasma Ordered By: Olya Piña on 10-16-2024 Anion gap [Moles/Vol] 10 mmol/L 5-15 [facility] BUN/creatinine ratioOrdered By: Olya Piña on 10-16-2024 Urea nitrogen/Creatinine [Mass ratio] 61.3 mg/mg High 10- [facility] Bilirubin, totalOrdered By: Olyaleslie Piña on 10-16-2024 Bilirubin [Mass/Vol] 0.85 mg/dL 0.00-1.30 [facility] CBC-Complete Blood Cnt No Di ffon 10-16-2024 Erythrocyte distribution width (RBC) [Ratio] 16.9 % High 11.6-14.6 [facility] Comment on above: Order Comment: 205 Performed By: #### L 501.5000, L3300.9910, L501.2300, L500.4050, L100.0500, L501.5200 ####[facility] [address] [place], [address] Hematocrit (Bld) [Volume fraction] 27.4 % Low 37-47 [facility] Comment on above: Order Comment: 205 Performed By: #### L 501.5000, L3300.9910, L501.2300, L500.4050, L100.0500, L501.5200 ####[facility] [address] [place], [address] Hemoglobin (Bld) [Mass/Vol] 8.7 g/dL Low 12.0-15.0 [facility] Comment on above: Order Comment: 205 Performed By: #### L 501.5000, L3300.9910, L501.2300, L500.4050, L100.0500, L501.5200 ####[facility] [address] [place], [address] MCH (RBC) [Entitic mass] 24.0 pg Low 27.0-32.0 [facility] Comment on above: Order Comment: 205 Performed By: #### L 501.5000, L3300.9910, L501.2300, L500.4050, L100.0500, L501.5200 ####[facility] [address] [place], [address] MCHC (RBC) [Mass/Vol] 31.8 g/dL Low 32-36 [facility] Comment on above: Order Comment: 205 Performed By: #### L 501.5000, L3300.9910, L501.2300, L500.4050, L100.0500, L501.5200 ####[facility] [address] [place], [address] MCV (RBC) [Entitic vol] 75.5 fL Low 81-99 [facility] Comment on above: Order Comment: 205 Performed By: #### L 501.5000, L3300.9910, L501.2300, L500.4050, L100.0500, L501.5200 ####[facility] [address] [place], [address] Platelet mean volume (Bld) [Entitic vol] 9.9 fL Normal 6.2-12.0 [facility] Comment on above: Order Comment: 205 Performed By: #### L 501.5000, L3300.9910, L501.2300, L500.4050, L100.0500, L501.5200 ####[facility] [address] [place], [address] Platelets (Bld) [#/Vol] 291 10*3/uL Normal 150-450 [facility] Comment on above: Order Comment: 205 Performed By: #### L 501.5000, L3300.9910, L501.2300, L500.4050, L100.0500, L501.5200 ####[facility] [address] [place], [address] RBC (Bld) [#/Vol] 3.63 10*6/uL Low 4.2-5.4 [facility] Comment on above: Order Comment: 205 Performed By: #### L 501.5000, L3300.9910, L501.2300, L500.4050, L100.0500, L501.5200 ####[facility] [address] [place], [address] RDW SD 45.3 fl High 35.1-43.9 [facility] Comment on above: Order Comment: 205 Performed By: #### L 501.5000, L3300.9910, L501.2300, L500.4050, L100.0500, L501.5200 ####[facility] [address] [place], [address] WBC (Bld) [#/Vol] 17.8 10*3/uL High 4.4-11.0 [facility] Comment on above: Order Comment: 205 Performed By: #### L 501.5000, L3300.9910, L501.2300, L500.4050, L100.0500, L501.5200 ####[facility] [address] [place], [address] Carbon dioxide, total [Moles /volume] in Central venous bloodOrdered By: Olya Piña on 10-16-2024 CO2 [Moles/Vol] 22.6 mmol/L 21.0-32.0 [facility] Chloride assayOrdered By: Moe Piña on 10-16-2024 Chloride [Moles/Vol] 103 mmol/L 98-108 [facility] Comprehensive Metabolic Prof ilon 10-16-2024 Albumin [Mass/Vol] 2.7 g/dL Low 3.4-4.8 [facility] Comment on above: Order Comment: 205 Performed By: #### L 501.5000, L3300.9910, L501.2300, L500.4050, L100.0500, L501.5200 ####[facility] [address] [place], [address] Albumin/Globulin [Mass ratio] 0.9 {ratio} Normal 0.9-2.4 [facility] Comment on above: Order Comment: 205 Performed By: #### L 501.5000, L3300.9910, L501.2300, L500.4050, L100.0500, L501.5200 ####[facility] [address] [place], [address] ALK PHOS 316 U/L High 35-104 [facility] Comment on above: Order Comment: 205 Performed By: #### L 501.5000, L3300.9910, L501.2300, L500.4050, L100.0500, L501.5200 ####[facility] [address] [place], [address] ALT [Catalytic activity/Vol] 165 U/L High <=34 [facility] Comment on above: Order Comment: 205 Performed By: #### L 501.5000, L3300.9910, L501.2300, L500.4050, L100.0500, L501.5200 ####[facility] [address] [place], [address] AST [Catalytic activity/Vol] 110 U/L High <=31 [facility] Comment on above: Order Comment: 205 Performed By: #### L 501.5000, L3300.9910, L501.2300, L500.4050, L100.0500, L501.5200 ####[facility] [address] [place], [address] Bilirubin [Mass/Vol] 0.85 mg/dL Normal 0.00-1.30 [facility] Comment on above: Order Comment: 205 Performed By: #### L 501.5000, L3300.9910, L501.2300, L500.4050, L100.0500, L501.5200 ####[facility] [address] [place], [address] BUN/CRE 61.3 RATIO High 10-20 [facility] Comment on above: Order Comment: 205 Performed By: #### L 501.5000, L3300.9910, L501.2300, L500.4050, L100.0500, L501.5200 ####[facility] [address] [place], [address] Calcium [Mass/Vol] 8.8 mg/dL Normal 7.6-11.0 [facility] Comment on above: Order Comment: 205 Performed By: #### L 501.5000, L3300.9910, L501.2300, L500.4050, L100.0500, L501.5200 ####[facility] [address] [place], [address] Chloride [Moles/Vol] 103 mmol/L Normal 98-108 [facility] Comment on above: Order Comment: 205 Performed By: #### L 501.5000, L3300.9910, L501.2300, L500.4050, L100.0500, L501.5200 ####[facility] [address] [place], [address] CO2 [Moles/Vol] 22.6 mmol/L Normal 21.0-32.0 [facility] Comment on above: Order Comment: 205 Performed By: #### L 501.5000, L3300.9910, L501.2300, L500.4050, L100.0500, L501.5200 ####[facility] [address] [place], [address] Creatinine [Mass/Vol] 0.38 mg/dL Low 0.70-1.20 [facility] Comment on above: Order Comment: 205 Performed By: #### L 501.5000, L3300.9910, L501.2300, L500.4050, L100.0500, L501.5200 ####[facility] [address] [place], [address] GAP 10 Normal 5-15 [facility] Comment on above: Order Comment: 205 Performed By: #### L 501.5000, L3300.9910, L501.2300, L500.4050, L100.0500, L501.5200 ####[facility] [address] [place], [address] GFR/1.73 sq M.predicted among non-blacks MDRD (S/P/Bld) [Vol rate/Area] 108 mL/min/{1.73_m2} Normal >60 [facility] Comment on above: Order Comment: 205 Result Comment: mL/m in/1.73m2 CKD-EPI Creatinine Equation (2020) Performed By: #### L 501.5000, L3300.9910, L501.2300, L500.4050, L100.0500, L501.5200 ####[facility] [address] [place], [address] Globulin (S) [Mass/Vol] 2.9 g/dL Normal 2.2-4.2 [facility] Comment on above: Order Comment: 205 Performed By: #### L 501.5000, L3300.9910, L501.2300, L500.4050, L100.0500, L501.5200 ####[facility] [address] [place], [address] Glucose [Mass/Vol] 95 mg/dL Normal 70-99 [facility] Comment on above: Order Comment: 205 Performed By: #### L 501.5000, L3300.9910, L501.2300, L500.4050, L100.0500, L501.5200 ####[facility] [address] [place], [address] Potassium [Moles/Vol] 4.1 mmol/L Normal 3.3-5.1 [facility] Comment on above: Order Comment: 205 Performed By: #### L 501.5000, L3300.9910, L501.2300, L500.4050, L100.0500, L501.5200 ####[facility] [address] [place], [address] Sodium [Moles/Vol] 136 mmol/L Normal 133-145 [facility] Comment on above: Order Comment: 205 Performed By: #### L 501.5000, L3300.9910, L501.2300, L500.4050, L100.0500, L501.5200 ####[facility] [address] [place], [address] T PROT 5.6 g/dL Low 5.9-8.4 [facility] Comment on above: Order Comment: 205 Performed By: #### L 501.5000, L3300.9910, L501.2300, L500.4050, L100.0500, L501.5200 ####[facility] [address] [place], [address] Urea nitrogen [Mass/Vol] 23 mg/dL High 4-19 [facility] Comment on above: Order Comment: 205 Performed By: #### L 501.5000, L3300.9910, L501.2300, L500.4050, L100.0500, L501.5200 ####[facility] [address] [place], [address] Erythrocyte distribution wid th ratioOrdered By: Olya Piña on 10-16-2024 Erythrocyte distribution width (RBC) [Ratio] 16.9 % High 11.6-14.6 [facility] Erythrocyte distribution wid th standard deviationOrdered By: Olya Piña on 10-16-2024 Erythrocyte distribution width (RBC) [Ratio] 45.3 fl High 35.1-43.9 [facility] Glomerular filtration rate ( GFR) estimation/1.73 sq m using serum, plasma, or whole bOrdered By: Olya Piña on 10-16-2024 GFR/1.73 sq M.predicted among non-blacks MDRD (S/P/Bld) [Vol rate/Area] 108 mL/min/{1.73_m2} >60 [facility] Hematocrit Auto (Bld) [Volum e fraction]Ordered By: Olya Piña on 10-16-2024 Hematocrit (Bld) [Volume fraction] 27.4 % Low 37-47 [facility] Hemoglobin measurementOrdere d By: Olya Piña on 10-16-2024 Hemoglobin (Bld) [Mass/Vol] 8.7 g/dL Low 12.0-15.0 [facility] MCV (mean corpuscular volume ) determinationOrdered By: Olya Piña on 10-16-2024 MCV (RBC) [Entitic vol] 75.5 fL Low 81-99 [facility] Magnesiumon 10-16-2024 Magnesium [Mass/Vol] 2.0 mg/dL Normal 1.5-2.2 [facility] Comment on above: Order Comment: 205 Performed By: #### L 501.5000, L3300.9910, L501.2300, L500.4050, L100.0500, L501.5200 ####[facility] [address] [place], [place], [address] Magnesium measurement (mass/ volume)Ordered By: Olya Piña on 10-16-2024 Magnesium (Unsp spec) [Mass/Vol] 2.0 mg/dL 1.5-2.2 [facility] Mean corpuscular hemoglobin (MCH) determinationOrdered By: Olya Piña on 10-16-2024 MCH (RBC) [Entitic mass] 24.0 pg Low 27.0-32.0 [facility] No Panel InformationOrdered By: Olya Piña on 10-16-2024 110 U/L High <32 [facility] Phosphoruson 10-16-2024 Phosphate [Mass/Vol] 4.2 mg/dL Normal 2.7-4.5 [facility] Comment on above: Order Comment: 205 Performed By: #### L 501.5000, L3300.9910, L501.2300, L500.4050, L100.0500, L501.5200 ####[facility] [address] [place], [address] Platelet countOrdered By: Moe Piña on 10-16-2024 Platelets (Bld) [#/Vol] 291 10*3/uL 150-450 [facility] Potassium measurement (mass/ volume)Ordered By: Olya Piña on 10-16-2024 Potassium (Unsp spec) [Mass/Vol] 4.1 mmol/L 3.3-5.1 [facility] RBC Auto (Bld) [#/Vol]Ordere d By: Olya Piña on 10-16-2024 RBC (Bld) [#/Vol] 3.63 10*6/uL Low 4.2-5.4 [facility] Serum creatinine measurement (mass/volume)Ordered By: Olya Piña on 10-16-2024 Creatinine [Mass/Vol] 0.38 mg/dL Low 0.70-1.20 [facility] Serum globulin measurementOr dered By: Olya Piña on 10-16-2024 Globulin (S) [Mass/Vol] 2.9 g/dL 2.2-4.2 [facility] Serum glucose measurement (m ass/volume)Ordered By: Olya Piña on 10-16-2024 Glucose [Mass/Vol] 95 mg/dL 70-99 [facility] Serum or plasma alanine juarez otransferase (ALT) measurementOrdered By: Olya Piña on 10-16-2024 ALT [Catalytic activity/Vol] 165 U/L High <35 [facility] Serum or plasma albumin cherelle urement (mass/volume)Ordered By: Olya Piña on 10-16-2024 Albumin [Mass/Vol] 2.7 g/dL Low 3.4-4.8 [facility] Serum or plasma albumin/glob ulin mass ratioOrdered By: Olya Piña on 10-16-2024 Albumin/Globulin [Mass ratio] 0.9 {ratio} 0.9-2.4 [facility] Serum or plasma alkaline piotr sphatase measurementOrdered By: Olya Piña on 10-16-2024 ALP [Catalytic activity/Vol] 316 U/L High 35-104 [facility] Serum or plasma calcium cherelle urement (mass/volume)Ordered By: Olya Piña on 10-16-2024 Calcium [Mass/Vol] 8.8 mg/dL 7.6-11.0 [facility] Serum or plasma urea nitroge n measurement (mass/volume)Ordered By: Olya Piña on 10-16-2024 Urea nitrogen [Mass/Vol] 23 mg/dL High 4-19 [facility] Sodium levelOrdered By: Deisy Piña on 10-16-2024 Sodium [Moles/Vol] 136 mmol/L 133-145 [facility] Total proteinOrdered By: Em Piña on 10-16-2024 Protein [Mass/Vol] 5.6 g/dL Low 5.9-8.4 [facility] Triglycerideson 10-16-2024 Triglyceride [Mass/Vol] 44 mg/dL Normal [facility] Comment on above: Order Comment: 205 Result Comment: The drugs N-Acetylcysteine and Metamizole may falselydepress this assay.Normal range: <150 mg/dLBorderline High: 150-199 mg/dLHigh: 200-499 mg/dLVery High: >500 mg/dL Performed By: #### L 501.5000, L3300.9910, L501.2300, L500.4050, L100.0500, L501.5200 ####[facility] [address] [place], [address] White blood cell (WBC) count Ordered By: Olya Piña on 10-16-2024 WBC (Bld) [#/Vol] 17.8 10*3/uL High 4.4-11.0 [facility] Anion gap in Serum or Plasma Ordered By: Olya Piña on 10-12-2024 Anion gap [Moles/Vol] 9 mmol/L 5- [facility] BUN/creatinine ratioOrdered By: Olya Piña on 10-12-2024 Urea nitrogen/Creatinine [Mass ratio] 65.7 mg/mg High 10- [facility] Bilirubin, totalOrdered By: Olya Piña on 10-12-2024 Bilirubin [Mass/Vol] 0.15 mg/dL 0.00-1.30 [facility] CBC-Complete Blood Cnt No Di ffon 10-12-2024 Erythrocyte distribution width (RBC) [Ratio] 17.1 % High 11.6-14.6 [facility] Comment on above: Order Comment: 205 Performed By: #### L 501.2300, L100.0500, L500.4050, L501.5200 ####[facility] [address] [place], [address] Hematocrit (Bld) [Volume fraction] 30.7 % Low 37-47 [facility] Comment on above: Order Comment: 205 Performed By: #### L 501.2300, L100.0500, L500.4050, L501.5200 ####[facility] [address] [place], [address] Hemoglobin (Bld) [Mass/Vol] 9.2 g/dL Low 12.0-15.0 [facility] Comment on above: Order Comment: 205 Performed By: #### L 501.2300, L100.0500, L500.4050, L501.5200 ####[facility] [address] [place], [address] MCH (RBC) [Entitic mass] 23.5 pg Low 27.0-32.0 [facility] Comment on above: Order Comment: 205 Performed By: #### L 501.2300, L100.0500, L500.4050, L501.5200 ####[facility] [address] [place], [address] MCHC (RBC) [Mass/Vol] 30.0 g/dL Low 32-36 [facility] Comment on above: Order Comment: 205 Performed By: #### L 501.2300, L100.0500, L500.4050, L501.5200 ####[facility] [address] [place], [address] MCV (RBC) [Entitic vol] 78.3 fL Low 81-99 [facility] Comment on above: Order Comment: 205 Performed By: #### L 501.2300, L100.0500, L500.4050, L501.5200 ####[facility] [address] [place], [address] Platelet mean volume (Bld) [Entitic vol] 9.1 fL Normal 6.2-12.0 [facility] Comment on above: Order Comment: 205 Performed By: #### L 501.2300, L100.0500, L500.4050, L501.5200 ####[facility] [address] [place], [address] Platelets (Bld) [#/Vol] 474 10*3/uL High 150-450 [facility] Comment on above: Order Comment: 205 Performed By: #### L 501.2300, L100.0500, L500.4050, L501.5200 ####[facility] [address] [place], [address] RBC (Bld) [#/Vol] 3.92 10*6/uL Low 4.2-5.4 [facility] Comment on above: Order Comment: 205 Performed By: #### L 501.2300, L100.0500, L500.4050, L501.5200 ####[facility] [address] [place], [address] RDW SD 47.8 fl High 35.1-43.9 [facility] Comment on above: Order Comment: 205 Performed By: #### L 501.2300, L100.0500, L500.4050, L501.5200 ####[facility] [address] [place], [address] WBC (Bld) [#/Vol] 9.4 10*3/uL Normal 4.4-11.0 [facility] Comment on above: Order Comment: 205 Performed By: #### L 501.2300, L100.0500, L500.4050, L501.5200 ####[facility] [address] [place], [address] Carbon dioxide, total [Moles /volume] in Central venous bloodOrdered By: Olya Piña on 10-12-2024 CO2 [Moles/Vol] 28.2 mmol/L 21.0-32.0 [facility] Chloride assayOrdered By: Moe Piña on 10-12-2024 Chloride [Moles/Vol] 101 mmol/L 98-108 [facility] Comprehensive Metabolic Prof ilon 10-12-2024 Albumin [Mass/Vol] 3.1 g/dL Low 3.4-4.8 [facility] Comment on above: Order Comment: 205 Performed By: #### L 501.2300, L100.0500, L500.4050, L501.5200 ####[facility] [address] [place], [address] Albumin/Globulin [Mass ratio] 1.0 {ratio} Normal 0.9-2.4 [facility] Comment on above: Order Comment: 205 Performed By: #### L 501.2300, L100.0500, L500.4050, L501.5200 ####[facility] [address] [place], [address] ALK PHOS 134 U/L High 35-104 [facility] Comment on above: Order Comment: 205 Performed By: #### L 501.2300, L100.0500, L500.4050, L501.5200 ####[facility] [address] [place], [address] ALT [Catalytic activity/Vol] 31 U/L Normal <=34 [facility] Comment on above: Order Comment: 205 Performed By: #### L 501.2300, L100.0500, L500.4050, L501.5200 ####[facility] [address] [place], [address] AST [Catalytic activity/Vol] 26 U/L Normal <=31 [facility] Comment on above: Order Comment: 205 Performed By: #### L 501.2300, L100.0500, L500.4050, L501.5200 ####[facility] [address] [place], [address] Bilirubin [Mass/Vol] 0.15 mg/dL Normal 0.00-1.30 [facility] Comment on above: Order Comment: 205 Performed By: #### L 501.2300, L100.0500, L500.4050, L501.5200 ####[facility] [address] [place], [address] BUN/CRE 65.7 RATIO High 10-20 [facility] Comment on above: Order Comment: 205 Performed By: #### L 501.2300, L100.0500, L500.4050, L501.5200 ####[facility] [address] [place], [address] Calcium [Mass/Vol] 8.8 mg/dL Normal 7.6-11.0 [facility] Comment on above: Order Comment: 205 Performed By: #### L 501.2300, L100.0500, L500.4050, L501.5200 ####[facility] [address] [place], [address] Chloride [Moles/Vol] 101 mmol/L Normal 98-108 [facility] Comment on above: Order Comment: 205 Performed By: #### L 501.2300, L100.0500, L500.4050, L501.5200 ####[facility] [address] [place], [address] CO2 [Moles/Vol] 28.2 mmol/L Normal 21.0-32.0 [facility] Comment on above: Order Comment: 205 Performed By: #### L 501.2300, L100.0500, L500.4050, L501.5200 ####[facility] [address] [place], [address] Creatinine [Mass/Vol] 0.30 mg/dL Low 0.70-1.20 [facility] Comment on above: Order Comment: 205 Performed By: #### L 501.2300, L100.0500, L500.4050, L501.5200 ####[facility] [address] [place], [address] GAP 9 Normal 5-15 [facility] Comment on above: Order Comment: 205 Performed By: #### L 501.2300, L100.0500, L500.4050, L501.5200 ####[facility] [address] [place], [address] GFR/1.73 sq M.predicted among non-blacks MDRD (S/P/Bld) [Vol rate/Area] 114 mL/min/{1.73_m2} Normal >60 [facility] Comment on above: Order Comment: 205 Result Comment: mL/m in/1.73m2 CKD-EPI Creatinine Equation (2020) Performed By: #### L 501.2300, L100.0500, L500.4050, L501.5200 ####[facility] [address] [place], [address] Globulin (S) [Mass/Vol] 3.2 g/dL Normal 2.2-4.2 [facility] Comment on above: Order Comment: 205 Performed By: #### L 501.2300, L100.0500, L500.4050, L501.5200 ####[facility] [address] [place], [address] Glucose [Mass/Vol] 107 mg/dL High 70-99 [facility] Comment on above: Order Comment: 205 Performed By: #### L 501.2300, L100.0500, L500.4050, L501.5200 ####[facility] [address] [place], [address] Potassium [Moles/Vol] 4.2 mmol/L Normal 3.3-5.1 [facility] Comment on above: Order Comment: 205 Performed By: #### L 501.2300, L100.0500, L500.4050, L501.5200 ####[facility] [address] [place], [address] Sodium [Moles/Vol] 138 mmol/L Normal 133-145 [facility] Comment on above: Order Comment: 205 Performed By: #### L 501.2300, L100.0500, L500.4050, L501.5200 ####[facility] [address] [place], [address] T PROT 6.3 g/dL Normal 5.9-8.4 [facility] Comment on above: Order Comment: 205 Performed By: #### L 501.2300, L100.0500, L500.4050, L501.5200 ####[facility] [address] [place], [address] Urea nitrogen [Mass/Vol] 20 mg/dL High 4-19 [facility] Comment on above: Order Comment: 205 Performed By: #### L 501.2300, L100.0500, L500.4050, L501.5200 ####[facility] [address] [place], [place], [id number] Erythrocyte distribution wid th ratioOrdered By: Olya Piña on 10-12-2024 Erythrocyte distribution width (RBC) [Ratio] 17.1 % High 11.6-14.6 [facility] Erythrocyte distribution wid th standard deviationOrdered By: Olya Piña on 10-12-2024 Erythrocyte distribution width (RBC) [Ratio] 47.8 fl High 35.1-43.9 [facility] Glomerular filtration rate ( GFR) estimation/1.73 sq m using serum, plasma, or whole bOrdered By: Olya Piña on 10-12-2024 GFR/1.73 sq M.predicted among non-blacks MDRD (S/P/Bld) [Vol rate/Area] 114 mL/min/{1.73_m2} >60 [facility] Hematocrit Auto (Bld) [Volum e fraction]Ordered By: Olya Piña on 10-12-2024 Hematocrit (Bld) [Volume fraction] 30.7 % Low 37-47 [facility] Hemoglobin measurementOrdere d By: Olya Piña on 10-12-2024 Hemoglobin (Bld) [Mass/Vol] 9.2 g/dL Low 12.0-15.0 [facility] MCV (mean corpuscular volume ) determinationOrdered By: Olya Piña on 10-12-2024 MCV (RBC) [Entitic vol] 78.3 fL Low 81-99 [facility] Magnesiumon 10-12-2024 Magnesium [Mass/Vol] 2.0 mg/dL Normal 1.5-2.2 [facility] Comment on above: Order Comment: 205 Performed By: #### L 501.2300, L100.0500, L500.4050, L501.5200 ####[facility] [address] [place], [place], [id number] Magnesium measurement (mass/ volume)Ordered By: Olya Piña on 10-12-2024 Magnesium (Unsp spec) [Mass/Vol] 2.0 mg/dL 1.5-2.2 [facility] Mean corpuscular hemoglobin (MCH) determinationOrdered By: Olya Piña on 10-12-2024 MCH (RBC) [Entitic mass] 23.5 pg Low 27.0-32.0 [facility] No Panel InformationOrdered By: Olya Piña on 10-12-2024 26 U/L <32 [facility] Phosphoruson 10-12-2024 Phosphate [Mass/Vol] 4.5 mg/dL Normal 2.7-4.5 [facility] Comment on above: Order Comment: 205 Performed By: #### L 501.2300, L100.0500, L500.4050, L501.5200 ####[facility] [address] [place], [address] Platelet countOrdered By: Moe Piña on 10-12-2024 Platelets (Bld) [#/Vol] 474 10*3/uL High 150-450 [facility] Potassium measurement (mass/ volume)Ordered By: Olya Piña on 10-12-2024 Potassium (Unsp spec) [Mass/Vol] 4.2 mmol/L 3.3-5.1 [facility] RBC Auto (Bld) [#/Vol]Ordere d By: Olya Piña on 10-12-2024 RBC (Bld) [#/Vol] 3.92 10*6/uL Low 4.2-5.4 [facility] Serum creatinine measurement (mass/volume)Ordered By: Olya Piña on 10-12-2024 Creatinine [Mass/Vol] 0.30 mg/dL Low 0.70-1.20 [facility] Serum globulin measurementOr dered By: Olya Piña on 10-12-2024 Globulin (S) [Mass/Vol] 3.2 g/dL 2.2-4.2 [facility] Serum glucose measurement (m ass/volume)Ordered By: Olya Piña on 10-12-2024 Glucose [Mass/Vol] 107 mg/dL High 70-99 [facility] Serum or plasma alanine juarez otransferase (ALT) measurementOrdered By: Olya Piña on 10-12-2024 ALT [Catalytic activity/Vol] 31 U/L <35 [facility] Serum or plasma albumin cherelle urement (mass/volume)Ordered By: Olya Piña on 10-12-2024 Albumin [Mass/Vol] 3.1 g/dL Low 3.4-4.8 [facility] Serum or plasma albumin/glob ulin mass ratioOrdered By: Olya Piña on 10-12-2024 Albumin/Globulin [Mass ratio] 1.0 {ratio} 0.9-2.4 [facility] Serum or plasma alkaline piotr sphatase measurementOrdered By: Olya Piña on 10-12-2024 ALP [Catalytic activity/Vol] 134 U/L High 35-104 [facility] Serum or plasma calcium cherelle urement (mass/volume)Ordered By: Olya Piña on 10-12-2024 Calcium [Mass/Vol] 8.8 mg/dL 7.6-11.0 [facility] Serum or plasma urea nitroge n measurement (mass/volume)Ordered By: Olya Piña on 10-12-2024 Urea nitrogen [Mass/Vol] 20 mg/dL High 4-19 [facility] Sodium levelOrdered By: Deisy Piña on 10-12-2024 Sodium [Moles/Vol] 138 mmol/L 133-145 [facility] Total proteinOrdered By: Em Piña on 10-12-2024 Protein [Mass/Vol] 6.3 g/dL 5.9-8.4 [facility] White blood cell (WBC) count Ordered By: Olya Piña on 10-12-2024 WBC (Bld) [#/Vol] 9.4 10*3/uL 4.4-11.0 [facility] Zinc, Plasma or Serumon 09-28 ZINC,PLASMA/SER 55 ug/dL Normal 44-115 [facility] Comment on above: Order Comment: Test( s) 137946-Giyr, Plasma or Serumwas developed and its performance characteristicsdetermined by [employer]. It has not been cleared or approvedby the Food and Drug Administration. Result Comment: Dete ction Limit = 5Performed at: [facility] - [facility] [id number] [place], [place] [id number] Director: Elvie Fry MD, Phone: [phone] Performed By: #### L 501.5200, L3300.9900, L501.2300, L500.4050, L501.5000, L100.0500 ####[facility] [address] [place], [place], [id number] Anion gap in Serum or Plasma Ordered By: Olya Piña on 10-09-2024 Anion gap [Moles/Vol] 10 mmol/L 5-15 [facility] BUN/creatinine ratioOrdered By: Olya Piña on 10-09-2024 Urea nitrogen/Creatinine [Mass ratio] 64.5 mg/mg High 10-20 [facility] Bilirubin, totalOrdered By: Olyaleslie Piña on 10-09-2024 Bilirubin [Mass/Vol] mg/dL 0.00-1.30 [facility] CBC-Complete Blood Cnt No Di ffon 10-09-2024 Erythrocyte distribution width (RBC) [Ratio] 17.2 % High 11.6-14.6 [facility] Comment on above: Order Comment: 205.1 Performed By: #### L 501.5200, L3300.9900, L501.2300, L500.4050, L501.5000, L100.0500 ####[facility] [address] [place], [place], [phone] Hematocrit (Bld) [Volume fraction] 30.1 % Low 37-47 [facility] Comment on above: Order Comment: 205.1 Performed By: #### L 501.5200, L3300.9900, L501.2300, L500.4050, L501.5000, L100.0500 ####[facility] [address] [place], [address] Hemoglobin (Bld) [Mass/Vol] 9.3 g/dL Low 12.0-15.0 [facility] Comment on above: Order Comment: 205.1 Performed By: #### L 501.5200, L3300.9900, L501.2300, L500.4050, L501.5000, L100.0500 ####[facility] [address] [place], [address] MCH (RBC) [Entitic mass] 24.1 pg Low 27.0-32.0 [facility] Comment on above: Order Comment: .1 Performed By: #### L 501.5200, L3300.9900, L501.2300, L500.4050, L501.5000, L100.0500 ####[facility] [address] [place], [address] MCHC (RBC) [Mass/Vol] 30.9 g/dL Low 32-36 [facility] Comment on above: Order Comment: . Performed By: #### L 501.5200, L3300.9900, L501.2300, L500.4050, L501.5000, L100.0500 ####[facility] [address] [place], [address] MCV (RBC) [Entitic vol] 78.0 fL Low 81-99 [facility] Comment on above: Order Comment: .1 Performed By: #### L 501.5200, L3300.9900, L501.2300, L500.4050, L501.5000, L100.0500 ####[facility] [address] [place], [address] Platelet mean volume (Bld) [Entitic vol] 9.3 fL Normal 6.2-12.0 [facility] Comment on above: Order Comment: .1 Performed By: #### L 501.5200, L3300.9900, L501.2300, L500.4050, L501.5000, L100.0500 ####[facility] [address] [place], [address] Platelets (Bld) [#/Vol] 515 10*3/uL High 150-450 [facility] Comment on above: Order Comment: . Performed By: #### L 501.5200, L3300.9900, L501.2300, L500.4050, L501.5000, L100.0500 ####[facility] [address] [place], [address] RBC (Bld) [#/Vol] 3.86 10*6/uL Low 4.2-5.4 [facility] Comment on above: Order Comment: . Performed By: #### L 501.5200, L3300.9900, L501.2300, L500.4050, L501.5000, L100.0500 ####[facility] [address] [place], [address] RDW SD 48.1 fl High 35.1-43.9 [facility] Comment on above: Order Comment: . Performed By: #### L 501.5200, L3300.9900, L501.2300, L500.4050, L501.5000, L100.0500 ####[facility] [address] [place], [address] WBC (Bld) [#/Vol] 9.8 10*3/uL Normal 4.4-11.0 [facility] Comment on above: Order Comment: . Performed By: #### L 501.5200, L3300.9900, L501.2300, L500.4050, L501.5000, L100.0500 ####[facility] [address] [place], [address] Carbon dioxide, total [Moles /volume] in Central venous bloodOrdered By: Olya Piña on 10-09-2024 CO2 [Moles/Vol] 27.5 mmol/L 21.0-32.0 [facility] Chloride assayOrdered By: Moe Piña on 10-09-2024 Chloride [Moles/Vol] 100 mmol/L 98-108 [facility] Comprehensive Metabolic Prof ilon 10-09-2024 Albumin [Mass/Vol] 3.0 g/dL Low 3.4-4.8 [facility] Comment on above: Order Comment: . Performed By: #### L 501.5200, L3300.9900, L501.2300, L500.4050, L501.5000, L100.0500 ####[facility] [address] [place], [address] Albumin/Globulin [Mass ratio] 1.0 {ratio} Normal 0.9-2.4 [facility] Comment on above: Order Comment: . Performed By: #### L 501.5200, L3300.9900, L501.2300, L500.4050, L501.5000, L100.0500 ####[facility] [address] [place], [address] ALK PHOS 140 U/L High 35-104 [facility] Comment on above: Order Comment: . Performed By: #### L 501.5200, L3300.9900, L501.2300, L500.4050, L501.5000, L100.0500 ####[facility] [address] [place], [address] ALT [Catalytic activity/Vol] 31 U/L Normal <=34 [facility] Comment on above: Order Comment: . Performed By: #### L 501.5200, L3300.9900, L501.2300, L500.4050, L501.5000, L100.0500 ####[facility] [facility] [address] [place], [address] AST [Catalytic activity/Vol] 26 U/L Normal <=31 [facility] Comment on above: Order Comment: . Performed By: #### L 501.5200, L3300.9900, L501.2300, L500.4050, L501.5000, L100.0500 ####[facility] [address] [place], [address] BUN/CRE 64.5 RATIO High 10-20 [facility] Comment on above: Order Comment: 205.1 Performed By: #### L 501.5200, L3300.9900, L501.2300, L500.4050, L501.5000, L100.0500 ####[facility] [address] [place], [address] Calcium [Mass/Vol] 8.6 mg/dL Normal 7.6-11.0 [facility] Comment on above: Order Comment: .1 Performed By: #### L 501.5200, L3300.9900, L501.2300, L500.4050, L501.5000, L100.0500 ####[facility] [address] [place], [address] Chloride [Moles/Vol] 100 mmol/L Normal 98-108 [facility] Comment on above: Order Comment: 205.1 Performed By: #### L 501.5200, L3300.9900, L501.2300, L500.4050, L501.5000, L100.0500 ####[facility] [address] [place], [address] CO2 [Moles/Vol] 27.5 mmol/L Normal 21.0-32.0 [facility] Comment on above: Order Comment: 205.1 Performed By: #### L 501.5200, L3300.9900, L501.2300, L500.4050, L501.5000, L100.0500 ####[facility] [address] [place], [address] Creatinine [Mass/Vol] 0.31 mg/dL Low 0.70-1.20 [facility] Comment on above: Order Comment: 205.1 Performed By: #### L 501.5200, L3300.9900, L501.2300, L500.4050, L501.5000, L100.0500 ####[facility] [address] [place], [address] GAP 10 Normal 5-15 [facility] Comment on above: Order Comment: 205.1 Performed By: #### L 501.5200, L3300.9900, L501.2300, L500.4050, L501.5000, L100.0500 ####[facility] [address] [place], [address] GFR/1.73 sq M.predicted among non-blacks MDRD (S/P/Bld) [Vol rate/Area] 114 mL/min/{1.73_m2} Normal >60 [facility] Comment on above: Order Comment: .1 Result Comment: mL/m in/1.73m2 CKD-EPI Creatinine Equation (2020) Performed By: #### L 501.5200, L3300.9900, L501.2300, L500.4050, L501.5000, L100.0500 ####[facility] [address] [place], [address] Globulin (S) [Mass/Vol] 3.2 g/dL Normal 2.2-4.2 [facility] Comment on above: Order Comment: .1 Performed By: #### L 501.5200, L3300.9900, L501.2300, L500.4050, L501.5000, L100.0500 ####[facility] [address] [place], [address] Glucose [Mass/Vol] 110 mg/dL High 70-99 [facility] Comment on above: Order Comment: .1 Performed By: #### L 501.5200, L3300.9900, L501.2300, L500.4050, L501.5000, L100.0500 ####[facility] [address] [place], [address] Potassium [Moles/Vol] 4.5 mmol/L Normal 3.3-5.1 [facility] Comment on above: Order Comment: 205.1 Performed By: #### L 501.5200, L3300.9900, L501.2300, L500.4050, L501.5000, L100.0500 ####[facility] [address] [place], [address] Sodium [Moles/Vol] 137 mmol/L Normal 133-145 [facility] Comment on above: Order Comment: 205.1 Performed By: #### L 501.5200, L3300.9900, L501.2300, L500.4050, L501.5000, L100.0500 ####[facility] [address] [place], [address] T BILI < 0.15 Normal 0.00-1.30 [facility] Comment on above: Order Comment: .1 Performed By: #### L 501.5200, L3300.9900, L501.2300, L500.4050, L501.5000, L100.0500 ####[facility] [address] [place], [address] T PROT 6.2 g/dL Normal 5.9-8.4 [facility] Comment on above: Order Comment: 205.1 Performed By: #### L 501.5200, L3300.9900, L501.2300, L500.4050, L501.5000, L100.0500 ####[facility] [address] [place], [address] Urea nitrogen [Mass/Vol] 20 mg/dL High 4-19 [facility] Comment on above: Order Comment: 205.1 Performed By: #### L 501.5200, L3300.9900, L501.2300, L500.4050, L501.5000, L100.0500 ####[facility] [address] [place], [place], [address] Erythrocyte distribution wid th ratioOrdered By: Olya Piña on 10-09-2024 Erythrocyte distribution width (RBC) [Ratio] 17.2 % High 11.6-14.6 [facility] Erythrocyte distribution wid th standard deviationOrdered By: Olya Piña on 10-09-2024 Erythrocyte distribution width (RBC) [Ratio] 48.1 fl High 35.1-43.9 [facility] Glomerular filtration rate ( GFR) estimation/1.73 sq m using serum, plasma, or whole bOrdered By: Olya Piña on 10-09-2024 GFR/1.73 sq M.predicted among non-blacks MDRD (S/P/Bld) [Vol rate/Area] 114 mL/min/{1.73_m2} >60 [facility] Hematocrit Auto (Bld) [Volum e fraction]Ordered By: Olya Piña on 10-09-2024 Hematocrit (Bld) [Volume fraction] 30.1 % Low 37-47 [facility] Hemoglobin measurementOrdere d By: Olya Piña on 10-09-2024 Hemoglobin (Bld) [Mass/Vol] 9.3 g/dL Low 12.0-15.0 [facility] MCV (mean corpuscular volume ) determinationOrdered By: Olya Piña on 10-09-2024 MCV (RBC) [Entitic vol] 78.0 fL Low 81-99 [facility] Magnesiumon 10-09-2024 Magnesium [Mass/Vol] 2.1 mg/dL Normal 1.5-2.2 [facility] Comment on above: Order Comment: 205.1 Performed By: #### L 501.5200, L3300.9900, L501.2300, L500.4050, L501.5000, L100.0500 ####[facility] [address] [place], [address] Magnesium measurement (mass/ volume)Ordered By: Olya Piña on 10-09-2024 Magnesium (Unsp spec) [Mass/Vol] 2.1 mg/dL 1.5-2.2 [facility] Mean corpuscular hemoglobin (MCH) determinationOrdered By: Olya Piña on 10-09-2024 MCH (RBC) [Entitic mass] 24.1 pg Low 27.0-32.0 [facility] No Panel InformationOrdered By: Olya Piña on 10-09-2024 26 U/L <32 [facility] Phosphoruson 10-09-2024 Phosphate [Mass/Vol] 3.8 mg/dL Normal 2.7-4.5 [facility] Comment on above: Order Comment: 205.1 Performed By: #### L 501.5200, L3300.9900, L501.2300, L500.4050, L501.5000, L100.0500 ####[facility] [address] [place], [address] Platelet countOrdered By: Moe Piña on 10-09-2024 Platelets (Bld) [#/Vol] 515 10*3/uL High 150-450 [facility] Potassium measurement (mass/ volume)Ordered By: Olya Piña on 10-09-2024 Potassium (Unsp spec) [Mass/Vol] 4.5 mmol/L 3.3-5.1 [facility] RBC Auto (Bld) [#/Vol]Ordere d By: Olya Piña on 10-09-2024 RBC (Bld) [#/Vol] 3.86 10*6/uL Low 4.2-5.4 [facility] Serum creatinine measurement (mass/volume)Ordered By: Olya Piña on 10-09-2024 Creatinine [Mass/Vol] 0.31 mg/dL Low 0.70-1.20 [facility] Serum globulin measurementOr dered By: Olya Piña on 10-09-2024 Globulin (S) [Mass/Vol] 3.2 g/dL 2.2-4.2 [facility] Serum glucose measurement (m ass/volume)Ordered By: Olya Piña on 10-09-2024 Glucose [Mass/Vol] 110 mg/dL High 70-99 [facility] Serum or plasma alanine juarez otransferase (ALT) measurementOrdered By: Olya Piña on 10-09-2024 ALT [Catalytic activity/Vol] 31 U/L <35 [facility] Serum or plasma albumin cherelle urement (mass/volume)Ordered By: Olya Piña on 10-09-2024 Albumin [Mass/Vol] 3.0 g/dL Low 3.4-4.8 [facility] Serum or plasma albumin/glob ulin mass ratioOrdered By: Olya Piña on 10-09-2024 Albumin/Globulin [Mass ratio] 1.0 {ratio} 0.9-2.4 [facility] Serum or plasma alkaline piotr sphatase measurementOrdered By: Olya Piña on 10-09-2024 ALP [Catalytic activity/Vol] 140 U/L High 35-104 [facility] Serum or plasma calcium cherelle urement (mass/volume)Ordered By: Olya Piña on 10-09-2024 Calcium [Mass/Vol] 8.6 mg/dL 7.6-11.0 [facility] Serum or plasma urea nitroge n measurement (mass/volume)Ordered By: Olya Piña on 10-09-2024 Urea nitrogen [Mass/Vol] 20 mg/dL High 4-19 [facility] Serum or plasma zinc measure ment (mass/volume)Ordered By: Olya Piña on 10-09-2024 Zinc [Mass/Vol] 55 ug/dL 44-115 [facility] Sodium levelOrdered By: Deisy Piña on 10-09-2024 Sodium [Moles/Vol] 137 mmol/L 133-145 [facility] Total proteinOrdered By: Em Piña on 10-09-2024 Protein [Mass/Vol] 6.2 g/dL 5.9-8.4 [facility] Triglycerideson 10-09-2024 Triglyceride [Mass/Vol] 50 mg/dL Normal [facility] Comment on above: Order Comment: 205.1 Result Comment: The drugs N-Acetylcysteine and Metamizole may falselydepress this assay.Normal range: <150 mg/dLBorderline High: 150-199 mg/dLHigh: 200-499 mg/dLVery High: >500 mg/dL Performed By: #### L 501.5200, L3300.9900, L501.2300, L500.4050, L501.5000, L100.0500 ####[facility] [address] [place], [address] White blood cell (WBC) count Ordered By: Olya Piña on 10-09-2024 WBC (Bld) [#/Vol] 9.8 10*3/uL 4.4-11.0 [facility] Anion gap in Serum or Plasma Ordered By: Olya Piña on 10-06-2024 Anion gap [Moles/Vol] 10 mmol/L 5-15 [facility] BUN/creatinine ratioOrdered By: Olya Piña on 10-06-2024 Urea nitrogen/Creatinine [Mass ratio] 49.3 mg/mg High 10-20 [facility] Bilirubin, totalOrdered By: Olya Piña on 10-06-2024 Bilirubin [Mass/Vol] 0.17 mg/dL 0.00-1.30 [facility] CBC-Complete Blood Cnt No Di ffon 10-06-2024 Erythrocyte distribution width (RBC) [Ratio] 17.3 % High 11.6-14.6 [facility] Comment on above: Order Comment: Performed By: #### L 501.5200, L500.4050, L501.2300, L501.5000, L100.0500 ####[facility] [address] [place], [address] Hematocrit (Bld) [Volume fraction] 30.2 % Low 37-47 [facility] Comment on above: Order Comment: Performed By: #### L 501.5200, L500.4050, L501.2300, L501.5000, L100.0500 ####[facility] [address] [place], [address] Hemoglobin (Bld) [Mass/Vol] 9.3 g/dL Low 12.0-15.0 [facility] Comment on above: Order Comment: Performed By: #### L 501.5200, L500.4050, L501.2300, L501.5000, L100.0500 ####[facility] [address] [place], [address] MCH (RBC) [Entitic mass] 24.2 pg Low 27.0-32.0 [facility] Comment on above: Order Comment: Performed By: #### L 501.5200, L500.4050, L501.2300, L501.5000, L100.0500 ####[facility] [address] [place], [address] MCHC (RBC) [Mass/Vol] 30.8 g/dL Low 32-36 [facility] Comment on above: Order Comment: Performed By: #### L 501.5200, L500.4050, L501.2300, L501.5000, L100.0500 ####[facility] [address] [place], [address] MCV (RBC) [Entitic vol] 78.6 fL Low 81-99 [facility] Comment on above: Order Comment: Performed By: #### L 501.5200, L500.4050, L501.2300, L501.5000, L100.0500 ####[facility] [address] [place], [address] Platelet mean volume (Bld) [Entitic vol] 9.2 fL Normal 6.2-12.0 [facility] Comment on above: Order Comment: Performed By: #### L 501.5200, L500.4050, L501.2300, L501.5000, L100.0500 ####[facility] [address] [place], [address] Platelets (Bld) [#/Vol] 525 10*3/uL High 150-450 [facility] Comment on above: Order Comment: Performed By: #### L 501.5200, L500.4050, L501.2300, L501.5000, L100.0500 ####[facility] [address] [place], [address] RBC (Bld) [#/Vol] 3.84 10*6/uL Low 4.2-5.4 [facility] Comment on above: Order Comment: Performed By: #### L 501.5200, L500.4050, L501.2300, L501.5000, L100.0500 ####[facility] [address] [place], [address] RDW SD 48.4 fl High 35.1-43.9 [facility] Comment on above: Order Comment: Performed By: #### L 501.5200, L500.4050, L501.2300, L501.5000, L100.0500 ####[facility] [address] [place], [address] WBC (Bld) [#/Vol] 13.9 10*3/uL High 4.4-11.0 [facility] Comment on above: Order Comment: Performed By: #### L 501.5200, L500.4050, L501.2300, L501.5000, L100.0500 ####[facility] [address] [place], [address] Carbon dioxide, total [Moles /volume] in Central venous bloodOrdered By: Olya Piña on 10-06-2024 CO2 [Moles/Vol] 28.2 mmol/L 21.0-32.0 [facility] Chloride assayOrdered By: Moe Piña on 10-06-2024 Chloride [Moles/Vol] 99 mmol/L 98-108 [facility] Comprehensive Metabolic Prof ilon 10-06-2024 Albumin [Mass/Vol] 3.1 g/dL Low 3.4-4.8 [facility] Comment on above: Order Comment: Performed By: #### L 501.5200, L500.4050, L501.2300, L501.5000, L100.0500 ####[facility] [address] [place], [address] Albumin/Globulin [Mass ratio] 1.0 {ratio} Normal 0.9-2.4 [facility] Comment on above: Order Comment: Performed By: #### L 501.5200, L500.4050, L501.2300, L501.5000, L100.0500 ####[facility] [address] [place], [address] ALK PHOS 150 U/L High 35-104 [facility] Comment on above: Order Comment: Performed By: #### L 501.5200, L500.4050, L501.2300, L501.5000, L100.0500 ####[facility] [address] [place], [address] ALT [Catalytic activity/Vol] 34 U/L Normal <=34 [facility] Comment on above: Order Comment: Performed By: #### L 501.5200, L500.4050, L501.2300, L501.5000, L100.0500 ####[facility] [address] [place], [address] AST [Catalytic activity/Vol] 25 U/L Normal <=31 [facility] Comment on above: Order Comment: Performed By: #### L 501.5200, L500.4050, L501.2300, L501.5000, L100.0500 ####[facility] [address], [address] Bilirubin [Mass/Vol] 0.17 mg/dL Normal 0.00-1.30 [facility] Comment on above: Order Comment: Performed By: #### L 501.5200, L500.4050, L501.2300, L501.5000, L100.0500 ####[facility] [address] [place], [address] BUN/CRE 49.3 RATIO High 10-20 [facility] Comment on above: Order Comment: Performed By: #### L 501.5200, L500.4050, L501.2300, L501.5000, L100.0500 ####[facility] [address] [place], [address] Calcium [Mass/Vol] 8.8 mg/dL Normal 7.6-11.0 [facility] Comment on above: Order Comment: Performed By: #### L 501.5200, L500.4050, L501.2300, L501.5000, L100.0500 ####[facility] [address] [place], [address] Chloride [Moles/Vol] 99 mmol/L Normal 98-108 [facility] Comment on above: Order Comment: Performed By: #### L 501.5200, L500.4050, L501.2300, L501.5000, L100.0500 ####[facility] [address] [place], [address] CO2 [Moles/Vol] 28.2 mmol/L Normal 21.0-32.0 [facility] Comment on above: Order Comment: Performed By: #### L 501.5200, L500.4050, L501.2300, L501.5000, L100.0500 ####[facility] [address] [place], [address] Creatinine [Mass/Vol] 0.38 mg/dL Low 0.70-1.20 [facility] Comment on above: Order Comment: Performed By: #### L 501.5200, L500.4050, L501.2300, L501.5000, L100.0500 ####[facility] [address] [place], [address] GAP 10 Normal 5-15 [facility] Comment on above: Order Comment: Performed By: #### L 501.5200, L500.4050, L501.2300, L501.5000, L100.0500 ####[facility] [address] [place], [address] GFR/1.73 sq M.predicted among non-blacks MDRD (S/P/Bld) [Vol rate/Area] 108 mL/min/{1.73_m2} Normal >60 [facility] Comment on above: Order Comment: Result Comment: mL/m in/1.73m2 CKD-EPI Creatinine Equation (2020) Performed By: #### L 501.5200, L500.4050, L501.2300, L501.5000, L100.0500 ####[facility] [address] [place], [address] Globulin (S) [Mass/Vol] 3.0 g/dL Normal 2.2-4.2 [facility] Comment on above: Order Comment: Performed By: #### L 501.5200, L500.4050, L501.2300, L501.5000, L100.0500 ####[facility] [address] [place], [address] Glucose [Mass/Vol] 116 mg/dL High 70-99 [facility] Comment on above: Order Comment: Performed By: #### L 501.5200, L500.4050, L501.2300, L501.5000, L100.0500 ####[facility] [address] [place], [address] Potassium [Moles/Vol] 4.7 mmol/L Normal 3.3-5.1 [facility] Comment on above: Order Comment: Performed By: #### L 501.5200, L500.4050, L501.2300, L501.5000, L100.0500 ####[facility] [address] [place], [address] Sodium [Moles/Vol] 137 mmol/L Normal 133-145 [facility] Comment on above: Order Comment: Performed By: #### L 501.5200, L500.4050, L501.2300, L501.5000, L100.0500 ####[facility] [address] [place], [address] T PROT 6.1 g/dL Normal 5.9-8.4 [facility] Comment on above: Order Comment: Performed By: #### L 501.5200, L500.4050, L501.2300, L501.5000, L100.0500 ####[facility] [address] [place], [address] Urea nitrogen [Mass/Vol] 19 mg/dL Normal 4-19 [facility] Comment on above: Order Comment: Performed By: #### L 501.5200, L500.4050, L501.2300, L501.5000, L100.0500 ####[facility] [address] [place], [address] Erythrocyte distribution wid th ratioOrdered By: Olya Piña on 10-06-2024 Erythrocyte distribution width (RBC) [Ratio] 17.3 % High 11.6-14.6 [facility] Erythrocyte distribution wid th standard deviationOrdered By: Olya Piña on 10-06-2024 Erythrocyte distribution width (RBC) [Ratio] 48.4 fl High 35.1-43.9 [facility] Glomerular filtration rate ( GFR) estimation/1.73 sq m using serum, plasma, or whole bOrdered By: Olya Piña on 10-06-2024 GFR/1.73 sq M.predicted among non-blacks MDRD (S/P/Bld) [Vol rate/Area] 108 mL/min/{1.73_m2} >60 [facility] Hematocrit Auto (Bld) [Volum e fraction]Ordered By: Olya Piña on 10-06-2024 Hematocrit (Bld) [Volume fraction] 30.2 % Low 37-47 [facility] Hemoglobin measurementOrdere d By: Olya Piña on 10-06-2024 Hemoglobin (Bld) [Mass/Vol] 9.3 g/dL Low 12.0-15.0 [facility] MCV (mean corpuscular volume ) determinationOrdered By: Olya Piña on 10-06-2024 MCV (RBC) [Entitic vol] 78.6 fL Low 81-99 [facility] Magnesiumon 10-06-2024 Magnesium [Mass/Vol] 2.1 mg/dL Normal 1.5-2.2 [facility] Comment on above: Order Comment: Performed By: #### L 501.5200, L500.4050, L501.2300, L501.5000, L100.0500 ####[facility] [address] [place], [address] Magnesium measurement (mass/ volume)Ordered By: Olya Piña on 10-06-2024 Magnesium (Unsp spec) [Mass/Vol] 2.1 mg/dL 1.5-2.2 [facility] Mean corpuscular hemoglobin (MCH) determinationOrdered By: Olya Piña on 10-06-2024 MCH (RBC) [Entitic mass] 24.2 pg Low 27.0-32.0 [facility] No Panel InformationOrdered By: Olya Piña on 10-06-2024 25 U/L <32 [facility] Phosphoruson 10-06-2024 Phosphate [Mass/Vol] 4.4 mg/dL Normal 2.7-4.5 [facility] Comment on above: Order Comment: Performed By: #### L 501.5200, L500.4050, L501.2300, L501.5000, L100.0500 ####[facility] [address] [place], [address] Platelet countOrdered By: Moe Piña on 10-06-2024 Platelets (Bld) [#/Vol] 525 10*3/uL High 150-450 [facility] Potassium measurement (mass/ volume)Ordered By: Olya Piña on 10-06-2024 Potassium (Unsp spec) [Mass/Vol] 4.7 mmol/L 3.3-5.1 [facility] RBC Auto (Bld) [#/Vol]Ordere d By: Olya Piña on 10-06-2024 RBC (Bld) [#/Vol] 3.84 10*6/uL Low 4.2-5.4 [facility] Serum creatinine measurement (mass/volume)Ordered By: Olya Piña on 10-06-2024 Creatinine [Mass/Vol] 0.38 mg/dL Low 0.70-1.20 [facility] Serum globulin measurementOr dered By: Olya Piña on 10-06-2024 Globulin (S) [Mass/Vol] 3.0 g/dL 2.2-4.2 [facility] Serum glucose measurement (m ass/volume)Ordered By: Olya Piña on 10-06-2024 Glucose [Mass/Vol] 116 mg/dL High 70-99 [facility] Serum or plasma alanine juarez otransferase (ALT) measurementOrdered By: Olya Piña on 10-06-2024 ALT [Catalytic activity/Vol] 34 U/L <35 [facility] Serum or plasma albumin cherelle urement (mass/volume)Ordered By: Olya Piña on 10-06-2024 Albumin [Mass/Vol] 3.1 g/dL Low 3.4-4.8 [facility] Serum or plasma albumin/glob ulin mass ratioOrdered By: Olya Piña on 10-06-2024 Albumin/Globulin [Mass ratio] 1.0 {ratio} 0.9-2.4 [facility] Serum or plasma alkaline piotr sphatase measurementOrdered By: Olya Piña on 10-06-2024 ALP [Catalytic activity/Vol] 150 U/L High 35-104 [facility] Serum or plasma calcium cherelle urement (mass/volume)Ordered By: Olya Piña on 10-06-2024 Calcium [Mass/Vol] 8.8 mg/dL 7.6-11.0 [facility] Serum or plasma urea nitroge n measurement (mass/volume)Ordered By: Olya Piña on 10-06-2024 Urea nitrogen [Mass/Vol] 19 mg/dL 4-19 [facility] [facility] Sodium levelOrdered By: Deisy Piña on 10-06-2024 Sodium [Moles/Vol] 137 mmol/L 133-145 [facility] Total proteinOrdered By: Em Piña on 10-06-2024 Protein [Mass/Vol] 6.1 g/dL 5.9-8.4 [facility] Triglycerideson 10-06-2024 Triglyceride [Mass/Vol] 46 mg/dL Normal [facility] Comment on above: Order Comment: Result Comment: The drugs N-Acetylcysteine and Metamizole may falselydepress this assay.Normal range: <150 mg/dLBorderline High: 150-199 mg/dLHigh: 200-499 mg/dLVery High: >500 mg/dL Performed By: #### L 501.5200, L500.4050, L501.2300, L501.5000, L100.0500 ####[facility] [address] [place], [place], [id number] White blood cell (WBC) count Ordered By: Olya Piña on 10-06-2024 WBC (Bld) [#/Vol] 13.9 10*3/uL High 4.4-11.0 [facility] Zinc, Plasma or Serumon ZINC,PLASMA/SER 66 ug/dL Normal 44-115 [facility] Comment on above: Order Comment: Test( s) [id number], Plasma or Serumwas developed and its performance characteristicsdetermined by [employer]. It has not been cleared or approvedby the Food and Drug Administration. Result Comment: Dete ction Limit = 5Performed at: [facility] [address] [place], [place] [id number] Director: Elvie Fry MD, Phone: [phone] Performed By: #### L 500.4050, L100.0500, L501.2300, L3300.9900, L501.5000, L501.5200 ####[facility] [address] [place], [address] Anion gap in Serum or Plasma Ordered By: Olya Piña on 10-04-2024 Anion gap [Moles/Vol] 10 mmol/L 5-15 [facility] BUN/creatinine ratioOrdered By: Olya Piña on 10-04-2024 Urea nitrogen/Creatinine [Mass ratio] 46.7 mg/mg High 10-20 [facility] Bilirubin, totalOrdered By: Olya Piña on 10-04-2024 Bilirubin [Mass/Vol] 0.17 mg/dL 0.00-1.30 [facility] CBC-Complete Blood Cnt No Di ffon 10-04-2024 Erythrocyte distribution width (RBC) [Ratio] 17.3 % High 11.6-14.6 [facility] Comment on above: Order Comment: 205 Performed By: #### L 501.2300, L500.4050, L501.5000, L501.5200, L100.0500 ####[facility] [address] [place], [address] Hematocrit (Bld) [Volume fraction] 31.2 % Low 37-47 [facility] Comment on above: Order Comment: 205 Performed By: #### L 501.2300, L500.4050, L501.5000, L501.5200, L100.0500 ####[facility] [address] [place], [address] Hemoglobin (Bld) [Mass/Vol] 9.6 g/dL Low 12.0-15.0 [facility] Comment on above: Order Comment: 205 Performed By: #### L 501.2300, L500.4050, L501.5000, L501.5200, L100.0500 ####[facility] [address] [place], [address] MCH (RBC) [Entitic mass] 23.9 pg Low 27.0-32.0 [facility] Comment on above: Order Comment: 205 Performed By: #### L 501.2300, L500.4050, L501.5000, L501.5200, L100.0500 ####[facility] [address] [place], [address] MCHC (RBC) [Mass/Vol] 30.8 g/dL Low 32-36 [facility] Comment on above: Order Comment: 205 Performed By: #### L 501.2300, L500.4050, L501.5000, L501.5200, L100.0500 ####[facility] [address] [place], [address] MCV (RBC) [Entitic vol] 77.6 fL Low 81-99 [facility] Comment on above: Order Comment: 205 Performed By: #### L 501.2300, L500.4050, L501.5000, L501.5200, L100.0500 ####[facility] [address] [place], [address] Platelet mean volume (Bld) [Entitic vol] 9.1 fL Normal 6.2-12.0 [facility] Comment on above: Order Comment: 205 Performed By: #### L 501.2300, L500.4050, L501.5000, L501.5200, L100.0500 ####[facility] [address] [place], [address] Platelets (Bld) [#/Vol] 550 10*3/uL High 150-450 [facility] Comment on above: Order Comment: 205 Performed By: #### L 501.2300, L500.4050, L501.5000, L501.5200, L100.0500 ####[facility] [address] [place], [address] RBC (Bld) [#/Vol] 4.02 10*6/uL Low 4.2-5.4 [facility] Comment on above: Order Comment: 205 Performed By: #### L 501.2300, L500.4050, L501.5000, L501.5200, L100.0500 ####[facility] [address] [place], [address] RDW SD 47.6 fl High 35.1-43.9 [facility] Comment on above: Order Comment: 205 Performed By: #### L 501.2300, L500.4050, L501.5000, L501.5200, L100.0500 ####[facility] [address] [place], [address] WBC (Bld) [#/Vol] 9.6 10*3/uL Normal 4.4-11.0 [facility] Comment on above: Order Comment: 205 Performed By: #### L 501.2300, L500.4050, L501.5000, L501.5200, L100.0500 ####[facility] [address] [place], [address] Carbon dioxide, total [Moles /volume] in Central venous bloodOrdered By: Olya Piña on 10-04-2024 CO2 [Moles/Vol] 26.4 mmol/L 21.0-32.0 [facility] Chloride assayOrdered By: Moe Piña on 10-04-2024 Chloride [Moles/Vol] 100 mmol/L 98-108 [facility] Comprehensive Metabolic Prof ilon 10-04-2024 Albumin [Mass/Vol] 3.1 g/dL Low 3.4-4.8 [facility] Comment on above: Order Comment: 205 Performed By: #### L 501.2300, L500.4050, L501.5000, L501.5200, L100.0500 ####[facility] [address] [place], [address] Albumin/Globulin [Mass ratio] 0.9 {ratio} Normal 0.9-2.4 [facility] Comment on above: Order Comment: 205 Performed By: #### L 501.2300, L500.4050, L501.5000, L501.5200, L100.0500 ####[facility] [address] [place], [address] ALK PHOS 170 U/L High 35-104 [facility] Comment on above: Order Comment: 205 Performed By: #### L 501.2300, L500.4050, L501.5000, L501.5200, L100.0500 ####[facility] [address] [place], [address] ALT [Catalytic activity/Vol] 58 U/L High <=34 [facility] Comment on above: Order Comment: 205 Performed By: #### L 501.2300, L500.4050, L501.5000, L501.5200, L100.0500 ####[facility] [address] [place], [address] AST [Catalytic activity/Vol] 45 U/L High <=31 [facility] Comment on above: Order Comment: 205 Performed By: #### L 501.2300, L500.4050, L501.5000, L501.5200, L100.0500 ####[facility] [address] [place], [address] Bilirubin [Mass/Vol] 0.17 mg/dL Normal 0.00-1.30 [facility] Comment on above: Order Comment: 205 Performed By: #### L 501.2300, L500.4050, L501.5000, L501.5200, L100.0500 ####[facility] [address] [place], [address] BUN/CRE 46.7 RATIO High 10-20 [facility] Comment on above: Order Comment: 205 Performed By: #### L 501.2300, L500.4050, L501.5000, L501.5200, L100.0500 ####[facility] [address] [place], [address] Calcium [Mass/Vol] 8.9 mg/dL Normal 7.6-11.0 [facility] Comment on above: Order Comment: 205 Performed By: #### L 501.2300, L500.4050, L501.5000, L501.5200, L100.0500 ####[facility] [address] [place], [address] Chloride [Moles/Vol] 100 mmol/L Normal 98-108 [facility] Comment on above: Order Comment: 205 Performed By: #### L 501.2300, L500.4050, L501.5000, L501.5200, L100.0500 ####[facility] [address] [place], [address] CO2 [Moles/Vol] 26.4 mmol/L Normal 21.0-32.0 [facility] Comment on above: Order Comment: 205 Performed By: #### L 501.2300, L500.4050, L501.5000, L501.5200, L100.0500 ####[facility] [address] [place], [address] Creatinine [Mass/Vol] 0.37 mg/dL Low 0.70-1.20 [facility] Comment on above: Order Comment: 205 Performed By: #### L 501.2300, L500.4050, L501.5000, L501.5200, L100.0500 ####[facility] [address] [place], [address] GAP 10 Normal 5-15 [facility] Comment on above: Order Comment: 205 Performed By: #### L 501.2300, L500.4050, L501.5000, L501.5200, L100.0500 ####[facility] [address] [place], [address] GFR/1.73 sq M.predicted among non-blacks MDRD (S/P/Bld) [Vol rate/Area] 109 mL/min/{1.73_m2} Normal >60 [facility] Comment on above: Order Comment: Result Comment: mL/m in/1.73m2 CKD-EPI Creatinine Equation (2020) Performed By: #### L 501.2300, L500.4050, L501.5000, L501.5200, L100.0500 ####[facility] [address] [place], [address] Globulin (S) [Mass/Vol] 3.3 g/dL Normal 2.2-4.2 [facility] Comment on above: Order Comment: 205 Performed By: #### L 501.2300, L500.4050, L501.5000, L501.5200, L100.0500 ####[facility] [address] [place], [address] Glucose [Mass/Vol] 100 mg/dL High 70-99 [facility] Comment on above: Order Comment: 205 Performed By: #### L 501.2300, L500.4050, L501.5000, L501.5200, L100.0500 ####[facility] [address] [place], [address] Potassium [Moles/Vol] 4.7 mmol/L Normal 3.3-5.1 [facility] Comment on above: Order Comment: 205 Performed By: #### L 501.2300, L500.4050, L501.5000, L501.5200, L100.0500 ####[facility] [address] [place], [address] Sodium [Moles/Vol] 137 mmol/L Normal 133-145 [facility] Comment on above: Order Comment: 205 Performed By: #### L 501.2300, L500.4050, L501.5000, L501.5200, L100.0500 ####[facility] [address] [place], [address] T PROT 6.4 g/dL Normal 5.9-8.4 [facility] Comment on above: Order Comment: 205 Performed By: #### L 501.2300, L500.4050, L501.5000, L501.5200, L100.0500 ####[facility] [address] [place], [address] Urea nitrogen [Mass/Vol] 17 mg/dL Normal 4-19 [facility] Comment on above: Order Comment: 205 Performed By: #### L 501.2300, L500.4050, L501.5000, L501.5200, L100.0500 ####[facility] [address] [place], [address] Erythrocyte distribution wid th ratioOrdered By: Olya Piña on 10-04-2024 Erythrocyte distribution width (RBC) [Ratio] 17.3 % High 11.6-14.6 [facility] Erythrocyte distribution wid th standard deviationOrdered By: Olya Piña on 10-04-2024 Erythrocyte distribution width (RBC) [Ratio] 47.6 fl High 35.1-43.9 [facility] Glomerular filtration rate ( GFR) estimation/1.73 sq m using serum, plasma, or whole bOrdered By: Olya Piña on 10-04-2024 GFR/1.73 sq M.predicted among non-blacks MDRD (S/P/Bld) [Vol rate/Area] 109 mL/min/{1.73_m2} >60 [facility] Hematocrit Auto (Bld) [Volum e fraction]Ordered By: Olya Piña on 10-04-2024 Hematocrit (Bld) [Volume fraction] 31.2 % Low 37-47 [facility] Hemoglobin measurementOrdere d By: Olya Piña on 10-04-2024 Hemoglobin (Bld) [Mass/Vol] 9.6 g/dL Low 12.0-15.0 [facility] MCV (mean corpuscular volume ) determinationOrdered By: Olya Piña on 10-04-2024 MCV (RBC) [Entitic vol] 77.6 fL Low 81-99 [facility] Magnesiumon 10-04-2024 Magnesium [Mass/Vol] 2.1 mg/dL Normal 1.5-2.2 [facility] Comment on above: Order Comment: 205 Performed By: #### L 501.2300, L500.4050, L501.5000, L501.5200, L100.0500 ####[facility] [address] [place], [place], [id number] Magnesium measurement (mass/ volume)Ordered By: Olya Piña on 10-04-2024 Magnesium (Unsp spec) [Mass/Vol] 2.1 mg/dL 1.5-2.2 [facility] Mean corpuscular hemoglobin (MCH) determinationOrdered By: Olya Piña on 10-04-2024 MCH (RBC) [Entitic mass] 23.9 pg Low 27.0-32.0 [facility] No Panel InformationOrdered By: Olya Piña on 10-04-2024 45 U/L High <32 [facility] Phosphoruson 10-04-2024 Phosphate [Mass/Vol] 4.3 mg/dL Normal 2.7-4.5 [facility] Comment on above: Order Comment: 205 Performed By: #### L 501.2300, L500.4050, L501.5000, L501.5200, L100.0500 ####[facility] [address] [place], [address] Platelet countOrdered By: Moe Piña on 10-04-2024 Platelets (Bld) [#/Vol] 550 10*3/uL High 150-450 [facility] Potassium measurement (mass/ volume)Ordered By: Olya Piña on 10-04-2024 Potassium (Unsp spec) [Mass/Vol] 4.7 mmol/L 3.3-5.1 [facility] RBC Auto (Bld) [#/Vol]Ordere d By: Olya Piña on 10-04-2024 RBC (Bld) [#/Vol] 4.02 10*6/uL Low 4.2-5.4 [facility] Serum creatinine measurement (mass/volume)Ordered By: Olya Piña on 10-04-2024 Creatinine [Mass/Vol] 0.37 mg/dL Low 0.70-1.20 [facility] Serum globulin measurementOr dered By: Olya Piña on 10-04-2024 Globulin (S) [Mass/Vol] 3.3 g/dL 2.2-4.2 [facility] Serum glucose measurement (m ass/volume)Ordered By: Olya Piña on 10-04-2024 Glucose [Mass/Vol] 100 mg/dL High 70-99 [facility] Serum or plasma alanine juarez otransferase (ALT) measurementOrdered By: Olya Piña on 10-04-2024 ALT [Catalytic activity/Vol] 58 U/L High <35 [facility] Serum or plasma albumin cherelle urement (mass/volume)Ordered By: Olya Piña on 10-04-2024 Albumin [Mass/Vol] 3.1 g/dL Low 3.4-4.8 [facility] Serum or plasma albumin/glob ulin mass ratioOrdered By: Olya Piña on 10-04-2024 Albumin/Globulin [Mass ratio] 0.9 {ratio} 0.9-2.4 [facility] Serum or plasma alkaline piotr sphatase measurementOrdered By: Olya Piña on 10-04-2024 ALP [Catalytic activity/Vol] 170 U/L High 35-104 [facility] Serum or plasma calcium cherelle urement (mass/volume)Ordered By: Olya Piña on 10-04-2024 Calcium [Mass/Vol] 8.9 mg/dL 7.6-11.0 [facility] Serum or plasma urea nitroge n measurement (mass/volume)Ordered By: Olya Piña on 10-04-2024 Urea nitrogen [Mass/Vol] 17 mg/dL 4-19 [facility] Sodium levelOrdered By: Deisy Piña on 10-04-2024 Sodium [Moles/Vol] 137 mmol/L 133-145 [facility] Total proteinOrdered By: Em Piña on 10-04-2024 Protein [Mass/Vol] 6.4 g/dL 5.9-8.4 [facility] Triglycerideson 10-04-2024 Triglyceride [Mass/Vol] 45 mg/dL Normal [facility] Comment on above: Order Comment: 205 Result Comment: The drugs N-Acetylcysteine and Metamizole may falselydepress this assay.Normal range: <150 mg/dLBorderline High: 150-199 mg/dLHigh: 200-499 mg/dLVery High: >500 mg/dL Performed By: #### L 501.2300, L500.4050, L501.5000, L501.5200, L100.0500 ####[facility] [address] [facility] [place], [address] White blood cell (WBC) count Ordered By: Olya Piña on 10-04-2024 WBC (Bld) [#/Vol] 9.6 10*3/uL 4.4-11.0 [facility] Anion gap in Serum or Plasma Ordered By: Olya Piña on 10-02-2024 Anion gap [Moles/Vol] 10 mmol/L 5-15 [facility] BUN/creatinine ratioOrdered By: Olya Piña on 10-02-2024 Urea nitrogen/Creatinine [Mass ratio] 44.7 mg/mg High 10-20 [facility] Bilirubin, totalOrdered By: Olya Piña on 10-02-2024 Bilirubin [Mass/Vol] mg/dL 0.00-1.30 [facility] CBC-Complete Blood Cnt No Di ffon 10-02-2024 Erythrocyte distribution width (RBC) [Ratio] 17.6 % High 11.6-14.6 [facility] Comment on above: Order Comment: . Performed By: #### L 500.4050, L100.0500, L501.2300, L3300.9900, L501.5000, L501.5200 ####[facility] [address] [place], [address] Hematocrit (Bld) [Volume fraction] 31.1 % Low 37-47 [facility] Comment on above: Order Comment: . Performed By: #### L 500.4050, L100.0500, L501.2300, L3300.9900, L501.5000, L501.5200 ####[facility] [address] [place], [address] Hemoglobin (Bld) [Mass/Vol] 9.9 g/dL Low 12.0-15.0 [facility] Comment on above: Order Comment: . Performed By: #### L 500.4050, L100.0500, L501.2300, L3300.9900, L501.5000, L501.5200 ####[facility] [address] [place], [address] MCH (RBC) [Entitic mass] 24.7 pg Low 27.0-32.0 [facility] Comment on above: Order Comment: . Performed By: #### L 500.4050, L100.0500, L501.2300, L3300.9900, L501.5000, L501.5200 ####[facility] [address] [place], [address] MCHC (RBC) [Mass/Vol] 31.8 g/dL Low 32-36 [facility] Comment on above: Order Comment: .1 Performed By: #### L 500.4050, L100.0500, L501.2300, L3300.9900, L501.5000, L501.5200 ####[facility] [address] [place], [address] MCV (RBC) [Entitic vol] 77.6 fL Low 81-99 [facility] Comment on above: Order Comment: .1 Performed By: #### L 500.4050, L100.0500, L501.2300, L3300.9900, L501.5000, L501.5200 ####[facility] [address] [place], [address] Platelet mean volume (Bld) [Entitic vol] 9.4 fL Normal 6.2-12.0 [facility] Comment on above: Order Comment: . Performed By: #### L 500.4050, L100.0500, L501.2300, L3300.9900, L501.5000, L501.5200 ####[facility] [address] [place], [address] Platelets (Bld) [#/Vol] 549 10*3/uL High 150-450 [facility] Comment on above: Order Comment: . Performed By: #### L 500.4050, L100.0500, L501.2300, L3300.9900, L501.5000, L501.5200 ####[facility] [address] [place], [address] RBC (Bld) [#/Vol] 4.01 10*6/uL Low 4.2-5.4 [facility] Comment on above: Order Comment: .1 Performed By: #### L 500.4050, L100.0500, L501.2300, L3300.9900, L501.5000, L501.5200 ####[facility] [address] [place], [address] RDW SD 48.0 fl High 35.1-43.9 [facility] Comment on above: Order Comment: . Performed By: #### L 500.4050, L100.0500, L501.2300, L3300.9900, L501.5000, L501.5200 ####[facility] [address] [place], [place], [id number]) WBC (Bld) [#/Vol] 9.5 10*3/uL Normal 4.4-11.0 [facility] Comment on above: Order Comment: . Performed By: #### L 500.4050, L100.0500, L501.2300, L3300.9900, L501.5000, L501.5200 ####[facility] [address] [place], [place], [id number] Carbon dioxide, total [Moles /volume] in Central venous bloodOrdered By: Olya Piña on 10-02-2024 CO2 [Moles/Vol] 25.5 mmol/L 21.0-32.0 [facility] Chloride assayOrdered By: Moe Piña on 10-02-2024 Chloride [Moles/Vol] 100 mmol/L 98-108 [facility] Comprehensive Metabolic Prof ilon 10-02-2024 Albumin [Mass/Vol] 3.1 g/dL Low 3.4-4.8 [facility] Comment on above: Order Comment: . Performed By: #### L 500.4050, L100.0500, L501.2300, L3300.9900, L501.5000, L501.5200 ####[facility] [address] [place], [address] Albumin/Globulin [Mass ratio] 1.0 {ratio} Normal 0.9-2.4 [facility] Comment on above: Order Comment: . Performed By: #### L 500.4050, L100.0500, L501.2300, L3300.9900, L501.5000, L501.5200 ####[facility] [address] [place], [address] ALK PHOS 167 U/L High 35-104 [facility] Comment on above: Order Comment: 205.1 Performed By: #### L 500.4050, L100.0500, L501.2300, L3300.9900, L501.5000, L501.5200 ####[facility] [address] [place], [address] ALT [Catalytic activity/Vol] 40 U/L High <=34 [facility] Comment on above: Order Comment: .1 Performed By: #### L 500.4050, L100.0500, L501.2300, L3300.9900, L501.5000, L501.5200 ####[facility] [address] [place], [address] AST [Catalytic activity/Vol] 34 U/L High <=31 [facility] Comment on above: Order Comment: .1 Performed By: #### L 500.4050, L100.0500, L501.2300, L3300.9900, L501.5000, L501.5200 ####[facility] [address] [place], [address] BUN/CRE 44.7 RATIO High 10-20 [facility] Comment on above: Order Comment: 205.1 Performed By: #### L 500.4050, L100.0500, L501.2300, L3300.9900, L501.5000, L501.5200 ####[facility] [address] [place], [address] Calcium [Mass/Vol] 8.7 mg/dL Normal 7.6-11.0 [facility] Comment on above: Order Comment: 205.1 Performed By: #### L 500.4050, L100.0500, L501.2300, L3300.9900, L501.5000, L501.5200 ####[facility] [address] [place], [address] Chloride [Moles/Vol] 100 mmol/L Normal 98-108 [facility] Comment on above: Order Comment: 205.1 Performed By: #### L 500.4050, L100.0500, L501.2300, L3300.9900, L501.5000, L501.5200 ####[facility] [address] [place], [address] CO2 [Moles/Vol] 25.5 mmol/L Normal 21.0-32.0 [facility] Comment on above: Order Comment: .1 Performed By: #### L 500.4050, L100.0500, L501.2300, L3300.9900, L501.5000, L501.5200 ####[facility] [address] [place], [address] Creatinine [Mass/Vol] 0.36 mg/dL Low 0.70-1.20 [facility] Comment on above: Order Comment: .1 Performed By: #### L 500.4050, L100.0500, L501.2300, L3300.9900, L501.5000, L501.5200 ####[facility] [address] [place], [address] GAP 10 Normal 5-15 [facility] Comment on above: Order Comment: .1 Performed By: #### L 500.4050, L100.0500, L501.2300, L3300.9900, L501.5000, L501.5200 ####[facility] [address] [place], [address] GFR/1.73 sq M.predicted among non-blacks MDRD (S/P/Bld) [Vol rate/Area] 110 mL/min/{1.73_m2} Normal >60 [facility] Comment on above: Order Comment: . Result Comment: mL/m in/1.73m2 CKD-EPI Creatinine Equation (2020) Performed By: #### L 500.4050, L100.0500, L501.2300, L3300.9900, L501.5000, L501.5200 ####[facility] [address] [place], [address] Globulin (S) [Mass/Vol] 3.2 g/dL Normal 2.2-4.2 [facility] Comment on above: Order Comment: . Performed By: #### L 500.4050, L100.0500, L501.2300, L3300.9900, L501.5000, L501.5200 ####[facility] [address] [place], [address] Glucose [Mass/Vol] 112 mg/dL High 70-99 [facility] Comment on above: Order Comment: . Performed By: #### L 500.4050, L100.0500, L501.2300, L3300.9900, L501.5000, L501.5200 ####[facility] [address] [place], [address] Potassium [Moles/Vol] 4.9 mmol/L Normal 3.3-5.1 [facility] Comment on above: Order Comment: . Performed By: #### L 500.4050, L100.0500, L501.2300, L3300.9900, L501.5000, L501.5200 ####[facility] [address] [place], [address] Sodium [Moles/Vol] 136 mmol/L Normal 133-145 [facility] Comment on above: Order Comment: . Performed By: #### L 500.4050, L100.0500, L501.2300, L3300.9900, L501.5000, L501.5200 ####[facility] [address] [place], [address] T BILI < 0.15 Normal 0.00-1.30 [facility] Comment on above: Order Comment: 205.1 Performed By: #### L 500.4050, L100.0500, L501.2300, L3300.9900, L501.5000, L501.5200 ####[facility] [address] [place], [address] T PROT 6.3 g/dL Normal 5.9-8.4 [facility] Comment on above: Order Comment: 205.1 Performed By: #### L 500.4050, L100.0500, L501.2300, L3300.9900, L501.5000, L501.5200 ####[facility] [address] [place], [address] Urea nitrogen [Mass/Vol] 16 mg/dL Normal 4-19 [facility] Comment on above: Order Comment: 205.1 Performed By: #### L 500.4050, L100.0500, L501.2300, L3300.9900, L501.5000, L501.5200 ####[facility] [address] [place], [address] Erythrocyte distribution wid th ratioOrdered By: Olya Piña on 10-02-2024 Erythrocyte distribution width (RBC) [Ratio] 17.6 % High 11.6-14.6 [facility] Erythrocyte distribution wid th standard deviationOrdered By: Olya Piña on 10-02-2024 Erythrocyte distribution width (RBC) [Ratio] 48.0 fl High 35.1-43.9 [facility] Glomerular filtration rate ( GFR) estimation/1.73 sq m using serum, plasma, or whole bOrdered By: Olya Piña on 10-02-2024 GFR/1.73 sq M.predicted among non-blacks MDRD (S/P/Bld) [Vol rate/Area] 110 mL/min/{1.73_m2} >60 [facility] Hematocrit Auto (Bld) [Volum e fraction]Ordered By: Olya Piña on 10-02-2024 Hematocrit (Bld) [Volume fraction] 31.1 % Low 37-47 [facility] Hemoglobin measurementOrdere d By: Olya Piña on 10-02-2024 Hemoglobin (Bld) [Mass/Vol] 9.9 g/dL Low 12.0-15.0 [facility] MCV (mean corpuscular volume ) determinationOrdered By: Olya Piña on 10-02-2024 MCV (RBC) [Entitic vol] 77.6 fL Low 81-99 [facility] Magnesiumon 10-02-2024 Magnesium [Mass/Vol] 2.1 mg/dL Normal 1.5-2.2 [facility] Comment on above: Order Comment: . Performed By: #### L 500.4050, L100.0500, L501.2300, L3300.9900, L501.5000, L501.5200 ####[facility] [address] [place], [place], [address] Magnesium measurement (mass/ volume)Ordered By: Olya Piña on 10-02-2024 Magnesium (Unsp spec) [Mass/Vol] 2.1 mg/dL 1.5-2.2 [facility] Mean corpuscular hemoglobin (MCH) determinationOrdered By: Olya Piña on 10-02-2024 MCH (RBC) [Entitic mass] 24.7 pg Low 27.0-32.0 [facility] No Panel InformationOrdered By: Olya Piña on 10-02-2024 34 U/L High <32 [facility] Phosphoruson 10-02-2024 Phosphate [Mass/Vol] 3.7 mg/dL Normal 2.7-4.5 [facility] Comment on above: Order Comment: 205.1 Performed By: #### L 500.4050, L100.0500, L501.2300, L3300.9900, L501.5000, L501.5200 ####[facility] [address] [place], [address] Platelet countOrdered By: Moe Piña on 10-02-2024 Platelets (Bld) [#/Vol] 549 10*3/uL High 150-450 [facility] Potassium measurement (mass/ volume)Ordered By: Olya Piña on 10-02-2024 Potassium (Unsp spec) [Mass/Vol] 4.9 mmol/L 3.3-5.1 [facility] RBC Auto (Bld) [#/Vol]Ordere d By: Olya Piña on 10-02-2024 RBC (Bld) [#/Vol] 4.01 10*6/uL Low 4.2-5.4 [facility] Serum creatinine measurement (mass/volume)Ordered By: Olya Piña on 10-02-2024 Creatinine [Mass/Vol] 0.36 mg/dL Low 0.70-1.20 [facility] Serum globulin measurementOr dered By: Olya Piña on 10-02-2024 Globulin (S) [Mass/Vol] 3.2 g/dL 2.2-4.2 [facility] Serum glucose measurement (m ass/volume)Ordered By: Olya Piña on 10-02-2024 Glucose [Mass/Vol] 112 mg/dL High 70-99 [facility] Serum or plasma alanine juarez otransferase (ALT) measurementOrdered By: Olya Piña on 10-02-2024 ALT [Catalytic activity/Vol] 40 U/L High <35 [facility] Serum or plasma albumin cherelle urement (mass/volume)Ordered By: Olya Piña on 10-02-2024 Albumin [Mass/Vol] 3.1 g/dL Low 3.4-4.8 [facility] Serum or plasma albumin/glob ulin mass ratioOrdered By: Olya Piña on 10-02-2024 Albumin/Globulin [Mass ratio] 1.0 {ratio} 0.9-2.4 [facility] Serum or plasma alkaline piotr sphatase measurementOrdered By: Olya Piña on 10-02-2024 ALP [Catalytic activity/Vol] 167 U/L High 35-104 [facility] Serum or plasma calcium cherelle urement (mass/volume)Ordered By: Olya Piña on 10-02-2024 Calcium [Mass/Vol] 8.7 mg/dL 7.6-11.0 [facility] Serum or plasma urea nitroge n measurement (mass/volume)Ordered By: Olya Piña on 10-02-2024 Urea nitrogen [Mass/Vol] 16 mg/dL 4-19 [facility] Serum or plasma zinc measure ment (mass/volume)Ordered By: Olya Piña on 10-02-2024 Zinc [Mass/Vol] 66 ug/dL 44-115 [facility] Sodium levelOrdered By: Deisy Piña on 10-02-2024 Sodium [Moles/Vol] 136 mmol/L 133-145 [facility] Total proteinOrdered By: Em Piña on 10-02-2024 Protein [Mass/Vol] 6.3 g/dL 5.9-8.4 [facility] Triglycerideson 10-02-2024 Triglyceride [Mass/Vol] 59 mg/dL Normal [facility] Comment on above: Order Comment: 205.1 Result Comment: The drugs N-Acetylcysteine and Metamizole may falselydepress this assay.Normal range: <150 mg/dLBorderline High: 150-199 mg/dLHigh: 200-499 mg/dLVery High: >500 mg/dL Performed By: #### L 500.4050, L100.0500, L501.2300, L3300.9900, L501.5000, L501.5200 ####[facility] [address] [place], [address] White blood cell (WBC) count Ordered By: Olya Piña on 10-02-2024 WBC (Bld) [#/Vol] 9.5 10*3/uL 4.4-11.0 [facility] Anion gap in Serum or Plasma Ordered By: Olya Piña on 09-29-2024 Anion gap [Moles/Vol] 9 mmol/L 5-15 [facility] BUN/creatinine ratioOrdered By: Olya Piña on 09-29-2024 Urea nitrogen/Creatinine [Mass ratio] 47.1 mg/mg High 10-20 [facility] Bilirubin, totalOrdered By: Olya Piña on 09-29-2024 Bilirubin [Mass/Vol] mg/dL 0.00-1.30 [facility] CBC-Complete Blood Cnt No Di ffon 09-29-2024 Erythrocyte distribution width (RBC) [Ratio] 17.5 % High 11.6-14.6 [facility] Comment on above: Order Comment: 205 Performed By: #### L 501.5200, L501.2300, L500.4050, L501.5000, L100.0500 ####[facility] [address] [place], [address] Hematocrit (Bld) [Volume fraction] 30.4 % Low 37-47 [facility] Comment on above: Order Comment: 205 Performed By: #### L 501.5200, L501.2300, L500.4050, L501.5000, L100.0500 ####[facility] [address] [place], [address] Hemoglobin (Bld) [Mass/Vol] 9.4 g/dL Low 12.0-15.0 [facility] Comment on above: Order Comment: 205 Performed By: #### L 501.5200, L501.2300, L500.4050, L501.5000, L100.0500 ####[facility] [address] [place], [address] MCH (RBC) [Entitic mass] 24.5 pg Low 27.0-32.0 [facility] Comment on above: Order Comment: 205 Performed By: #### L 501.5200, L501.2300, L500.4050, L501.5000, L100.0500 ####[facility] [address] [place], [address] MCHC (RBC) [Mass/Vol] 30.9 g/dL Low 32-36 [facility] Comment on above: Order Comment: 205 Performed By: #### L 501.5200, L501.2300, L500.4050, L501.5000, L100.0500 ####[facility] [address] [place], [address] MCV (RBC) [Entitic vol] 79.2 fL Low 81-99 [facility] Comment on above: Order Comment: 205 Performed By: #### L 501.5200, L501.2300, L500.4050, L501.5000, L100.0500 ####[facility] [address] [place], [address] Platelet mean volume (Bld) [Entitic vol] 9.3 fL Normal 6.2-12.0 [facility] Comment on above: Order Comment: 205 Performed By: #### L 501.5200, L501.2300, L500.4050, L501.5000, L100.0500 ####[facility] [address] [place], [address] Platelets (Bld) [#/Vol] 522 10*3/uL High 150-450 [facility] Comment on above: Order Comment: 205 Performed By: #### L 501.5200, L501.2300, L500.4050, L501.5000, L100.0500 ####[facility] [address] [place], [address] RBC (Bld) [#/Vol] 3.84 10*6/uL Low 4.2-5.4 [facility] Comment on above: Order Comment: 205 Performed By: #### L 501.5200, L501.2300, L500.4050, L501.5000, L100.0500 ####[facility] [address] [place], [address] RDW SD 47.9 fl High 35.1-43.9 [facility] Comment on above: Order Comment: 205 Performed By: #### L 501.5200, L501.2300, L500.4050, L501.5000, L100.0500 ####[facility] [address] [place], [address] WBC (Bld) [#/Vol] 6.6 10*3/uL Normal 4.4-11.0 [facility] Comment on above: Order Comment: 205 Performed By: #### L 501.5200, L501.2300, L500.4050, L501.5000, L100.0500 ####[facility] [address] [place], [address] Carbon dioxide, total [Moles /volume] in Central venous bloodOrdered By: Olya Piña on 09-29-2024 CO2 [Moles/Vol] 26.8 mmol/L 21.0-32.0 [facility] Chloride assayOrdered By: Moe Piña on 09-29-2024 Chloride [Moles/Vol] 102 mmol/L 98-108 [facility] Comprehensive Metabolic Prof ilon 09-29-2024 Albumin [Mass/Vol] 2.9 g/dL Low 3.4-4.8 [facility] Comment on above: Order Comment: 205 Performed By: #### L 501.5200, L501.2300, L500.4050, L501.5000, L100.0500 ####[facility] [address] [place], [address] Albumin/Globulin [Mass ratio] 0.9 {ratio} Normal 0.9-2.4 [facility] Comment on above: Order Comment: 205 Performed By: #### L 501.5200, L501.2300, L500.4050, L501.5000, L100.0500 ####[facility] [address] [place], [address] ALK PHOS 159 U/L High 35-104 [facility] Comment on above: Order Comment: 205 Performed By: #### L 501.5200, L501.2300, L500.4050, L501.5000, L100.0500 ####[facility] [address] [place], [address] ALT [Catalytic activity/Vol] 34 U/L Normal <=34 [facility] Comment on above: Order Comment: 205 Performed By: #### L 501.5200, L501.2300, L500.4050, L501.5000, L100.0500 ####[facility] [address] [place], [address] AST [Catalytic activity/Vol] 36 U/L High <=31 [facility] Comment on above: Order Comment: 205 Performed By: #### L 501.5200, L501.2300, L500.4050, L501.5000, L100.0500 ####[facility] [address] [place], [address] BUN/CRE 47.1 RATIO High 10-20 [facility] Comment on above: Order Comment: 205 Performed By: #### L 501.5200, L501.2300, L500.4050, L501.5000, L100.0500 ####[facility] [address] [place], [address] Calcium [Mass/Vol] 8.7 mg/dL Normal 7.6-11.0 [facility] Comment on above: Order Comment: 205 Performed By: #### L 501.5200, L501.2300, L500.4050, L501.5000, L100.0500 ####[facility] [address] [place], [address] Chloride [Moles/Vol] 102 mmol/L Normal 98-108 [facility] Comment on above: Order Comment: 205 Performed By: #### L 501.5200, L501.2300, L500.4050, L501.5000, L100.0500 ####[facility] [address] [place], [address] CO2 [Moles/Vol] 26.8 mmol/L Normal 21.0-32.0 [facility] Comment on above: Order Comment: 205 Performed By: #### L 501.5200, L501.2300, L500.4050, L501.5000, L100.0500 ####[facility] [address] [place], [address] Creatinine [Mass/Vol] 0.40 mg/dL Low 0.70-1.20 [facility] Comment on above: Order Comment: 205 Performed By: #### L 501.5200, L501.2300, L500.4050, L501.5000, L100.0500 ####[facility] [address] [place], [address] GAP 9 Normal 5-15 [facility] Comment on above: Order Comment: 205 Performed By: #### L 501.5200, L501.2300, L500.4050, L501.5000, L100.0500 ####[facility] [address] [place], [address] GFR/1.73 sq M.predicted among non-blacks MDRD (S/P/Bld) [Vol rate/Area] 107 mL/min/{1.73_m2} Normal >60 [facility] Comment on above: Order Comment: 205 Result Comment: mL/m in/1.73m2 CKD-EPI Creatinine Equation (2020) Performed By: #### L 501.5200, L501.2300, L500.4050, L501.5000, L100.0500 ####[facility] [address] [place], [address] Globulin (S) [Mass/Vol] 3.2 g/dL Normal 2.2-4.2 [facility] Comment on above: Order Comment: 205 Performed By: #### L 501.5200, L501.2300, L500.4050, L501.5000, L100.0500 ####[facility] [address] [place], [address] Glucose [Mass/Vol] 120 mg/dL High 70-99 [facility] Comment on above: Order Comment: 205 Performed By: #### L 501.5200, L501.2300, L500.4050, L501.5000, L100.0500 ####[facility] [address] [place], [address] Potassium [Moles/Vol] 4.8 mmol/L Normal 3.3-5.1 [facility] Comment on above: Order Comment: 205 Performed By: #### L 501.5200, L501.2300, L500.4050, L501.5000, L100.0500 ####[facility] [address] [place], [address] Sodium [Moles/Vol] 138 mmol/L Normal 133-145 [facility] Comment on above: Order Comment: 205 Performed By: #### L 501.5200, L501.2300, L500.4050, L501.5000, L100.0500 ####[facility] [address] [place], [address] T BILI < 0.15 Normal 0.00-1.30 [facility] Comment on above: Order Comment: 205 Performed By: #### L 501.5200, L501.2300, L500.4050, L501.5000, L100.0500 ####[facility] [address] [place], [address] T PROT 6.2 g/dL Normal 5.9-8.4 [facility] Comment on above: Order Comment: 205 Performed By: #### L 501.5200, L501.2300, L500.4050, L501.5000, L100.0500 ####[facility] [address] [place], [address] Urea nitrogen [Mass/Vol] 19 mg/dL Normal 4-19 [facility] Comment on above: Order Comment: 205 Performed By: #### L 501.5200, L501.2300, L500.4050, L501.5000, L100.0500 ####[facility] [address] [place], [address] Erythrocyte distribution wid th ratioOrdered By: Olya Piña on 09-29-2024 Erythrocyte distribution width (RBC) [Ratio] 17.5 % High 11.6-14.6 [facility] Erythrocyte distribution wid th standard deviationOrdered By: Olya Piña on 09-29-2024 Erythrocyte distribution width (RBC) [Ratio] 47.9 fl High 35.1-43.9 [facility] Glomerular filtration rate ( GFR) estimation/1.73 sq m using serum, plasma, or whole bOrdered By: Olya Piña on 09-29-2024 GFR/1.73 sq M.predicted among non-blacks MDRD (S/P/Bld) [Vol rate/Area] 107 mL/min/{1.73_m2} >60 [facility] Hematocrit Auto (Bld) [Volum e fraction]Ordered By: Olya Piña on 09-29-2024 Hematocrit (Bld) [Volume fraction] 30.4 % Low 37-47 [facility] Hemoglobin measurementOrdere d By: Olya Piña on 09-29-2024 Hemoglobin (Bld) [Mass/Vol] 9.4 g/dL Low 12.0-15.0 [facility] MCV (mean corpuscular volume ) determinationOrdered By: Olya Piña on 09-29-2024 MCV (RBC) [Entitic vol] 79.2 fL Low 81-99 [facility] Magnesiumon 09-29-2024 Magnesium [Mass/Vol] 2.1 mg/dL Normal 1.5-2.2 [facility] Comment on above: Order Comment: 205 Performed By: #### L 501.5200, L501.2300, L500.4050, L501.5000, L100.0500 ####[facility] [address] [place], [place], [address] Magnesium measurement (mass/ volume)Ordered By: Olya Piña on 09-29-2024 Magnesium (Unsp spec) [Mass/Vol] 2.1 mg/dL 1.5-2.2 [facility] Mean corpuscular hemoglobin (MCH) determinationOrdered By: Olya Piña on 09-29-2024 MCH (RBC) [Entitic mass] 24.5 pg Low 27.0-32.0 [facility] No Panel InformationOrdered By: Olya Piña on 09-29-2024 36 U/L High <32 [facility] Phosphoruson 09-29-2024 Phosphate [Mass/Vol] 4.0 mg/dL Normal 2.7-4.5 [facility] Comment on above: Order Comment: 205 Performed By: #### L 501.5200, L501.2300, L500.4050, L501.5000, L100.0500 ####[facility] [address] [facility] [place], [place], [address] Platelet countOrdered By: Moe Piña on 09-29-2024 Platelets (Bld) [#/Vol] 522 10*3/uL High 150-450 [facility] Potassium measurement (mass/ volume)Ordered By: Olya Piña on 09-29-2024 Potassium (Unsp spec) [Mass/Vol] 4.8 mmol/L 3.3-5.1 [facility] RBC Auto (Bld) [#/Vol]Ordere d By: Olya Piña on 09-29-2024 RBC (Bld) [#/Vol] 3.84 10*6/uL Low 4.2-5.4 [facility] Serum creatinine measurement (mass/volume)Ordered By: Olya Piña on 09-29-2024 Creatinine [Mass/Vol] 0.40 mg/dL Low 0.70-1.20 [facility] Serum globulin measurementOr dered By: Olya Piña on 09-29-2024 Globulin (S) [Mass/Vol] 3.2 g/dL 2.2-4.2 [facility] Serum glucose measurement (m ass/volume)Ordered By: Olya Piña on 09-29-2024 Glucose [Mass/Vol] 120 mg/dL High 70-99 [facility] Serum or plasma alanine juarez otransferase (ALT) measurementOrdered By: Olya Piña on 09-29-2024 ALT [Catalytic activity/Vol] 34 U/L <35 [facility] Serum or plasma albumin cherelle urement (mass/volume)Ordered By: Olya Piña on 09-29-2024 Albumin [Mass/Vol] 2.9 g/dL Low 3.4-4.8 [facility] Serum or plasma albumin/glob ulin mass ratioOrdered By: Olya Piña on 09-29-2024 Albumin/Globulin [Mass ratio] 0.9 {ratio} 0.9-2.4 [facility] Serum or plasma alkaline piotr sphatase measurementOrdered By: Olya Piña on 09-29-2024 ALP [Catalytic activity/Vol] 159 U/L High 35-104 [facility] Serum or plasma calcium cherelle urement (mass/volume)Ordered By: Olya Piña on 09-29-2024 Calcium [Mass/Vol] 8.7 mg/dL 7.6-11.0 [facility] Serum or plasma urea nitroge n measurement (mass/volume)Ordered By: Olya Piña on 09-29-2024 Urea nitrogen [Mass/Vol] 19 mg/dL 4-19 [facility] Sodium levelOrdered By: Deisy Piña on 09-29-2024 Sodium [Moles/Vol] 138 mmol/L 133-145 [facility] Total proteinOrdered By: Em Piña on 09-29-2024 Protein [Mass/Vol] 6.2 g/dL 5.9-8.4 [facility] Triglycerideson 09-29-2024 Triglyceride [Mass/Vol] 53 mg/dL Normal [facility] Comment on above: Order Comment: 205 Result Comment: The drugs N-Acetylcysteine and Metamizole may falselydepress this assay.Normal range: <150 mg/dLBorderline High: 150-199 mg/dLHigh: 200-499 mg/dLVery High: >500 mg/dL Performed By: #### L 501.5200, L501.2300, L500.4050, L501.5000, L100.0500 ####[facility] [address] [place], [place], [address] White blood cell (WBC) count Ordered By: Olya Piña on 09-29-2024 WBC (Bld) [#/Vol] 6.6 10*3/uL 4.4-11.0 [facility] Zinc, Plasma or Serumon ZINC,PLASMA/SER 59 ug/dL Normal 44-115 [facility] Comment on above: Order Comment: Test( s) [id number], Plasma or Serumwas developed and its performance characteristicsdetermined by [employer]. It has not been cleared or approvedby the Food and Drug Administration. Result Comment: Dete ction Limit = 5Performed at: [facility] [address] [id number] Director: Elvie Fry MD, Phone: [phone] Performed By: #### L 501.5000, L501.5200, L3300.9900, L100.0500, L501.2300, L500.4050 ####[facility] [address] [place], [address] Anion gap in Serum or Plasma Ordered By: Olya Piña on 09-27-2024 Anion gap [Moles/Vol] 12 mmol/L 5-15 [facility] BUN/creatinine ratioOrdered By: Olya Piña on 09-27-2024 Urea nitrogen/Creatinine [Mass ratio] 49.5 mg/mg High 10- [facility] Bilirubin, totalOrdered By: Olya Piña on 04-30-2025 Bilirubin [Mass/Vol] mg/dL 0.00-1.30 [facility] [facility]Complete Blood Cnt No Melissa ffon 09-27-2024 Erythrocyte distribution width (RBC) [Ratio] 17.9 % High 11.6-14.6 [facility] Comment on above: Order Comment: 205 Performed By: #### L 500.4050, L501.5200, L501.2300, L100.0500 ####[facility] [address] [place], [address] Hematocrit (Bld) [Volume fraction] 32.0 % Low 37-47 [facility] Comment on above: Order Comment: 205 Performed By: #### L 500.4050, L501.5200, L501.2300, L100.0500 ####[facility] [address] [place], [address] Hemoglobin (Bld) [Mass/Vol] 9.7 g/dL Low 12.0-15.0 [facility] Comment on above: Order Comment: 205 Performed By: #### L 500.4050, L501.5200, L501.2300, L100.0500 ####[facility] [address] [place], [address] MCH (RBC) [Entitic mass] 24.1 pg Low 27.0-32.0 [facility] Comment on above: Order Comment: 205 Performed By: #### L 500.4050, L501.5200, L501.2300, L100.0500 ####[facility] [address] [place], [address] MCHC (RBC) [Mass/Vol] 30.3 g/dL Low 32-36 [facility] Comment on above: Order Comment: 205 Performed By: #### L 500.4050, L501.5200, L501.2300, L100.0500 ####[facility] [address] [place], [address] MCV (RBC) [Entitic vol] 79.6 fL Low 81-99 [facility] Comment on above: Order Comment: 205 Performed By: #### L 500.4050, L501.5200, L501.2300, L100.0500 ####[facility] [address] [place], [address] Platelet mean volume (Bld) [Entitic vol] 9.3 fL Normal 6.2-12.0 [facility] Comment on above: Order Comment: 205 Performed By: #### L 500.4050, L501.5200, L501.2300, L100.0500 ####[facility] [address] [place], [address] Platelets (Bld) [#/Vol] 542 10*3/uL High 150-450 [facility] Comment on above: Order Comment: 205 Performed By: #### L 500.4050, L501.5200, L501.2300, L100.0500 ####[facility] [address] [place], [address] RBC (Bld) [#/Vol] 4.02 10*6/uL Low 4.2-5.4 [facility] Comment on above: Order Comment: 205 Performed By: #### L 500.4050, L501.5200, L501.2300, L100.0500 ####[facility] [address] [place], [address] RDW SD 49.2 fl High 35.1-43.9 [facility] Comment on above: Order Comment: 205 Performed By: #### L 500.4050, L501.5200, L501.2300, L100.0500 ####[facility] [address] [place], [address] WBC (Bld) [#/Vol] 9.3 10*3/uL Normal 4.4-11.0 [facility] Comment on above: Order Comment: 205 Performed By: #### L 500.4050, L501.5200, L501.2300, L100.0500 ####[facility] [address] [place], [address] Carbon dioxide, total [Moles /volume] in Central venous bloodOrdered By: lOya Piña on 09-27-2024 CO2 [Moles/Vol] 26.6 mmol/L 21.0-32.0 [facility] Chloride assayOrdered By: Moe Piña on 09-27-2024 Chloride [Moles/Vol] 99 mmol/L 98-108 [facility] Comprehensive Metabolic Prof ilon 09-27-2024 Albumin [Mass/Vol] 3.2 g/dL Low 3.4-4.8 [facility] Comment on above: Order Comment: 205 Performed By: #### L 500.4050, L501.5200, L501.2300, L100.0500 ####[facility] [address] [place], [address] Albumin/Globulin [Mass ratio] 1.0 {ratio} Normal 0.9-2.4 [facility] Comment on above: Order Comment: 205 Performed By: #### L 500.4050, L501.5200, L501.2300, L100.0500 ####[facility] [address] [place], [address] ALK PHOS 161 U/L High 35-104 [facility] Comment on above: Order Comment: 205 Performed By: #### L 500.4050, L501.5200, L501.2300, L100.0500 ####[facility] [address] [place], [address] ALT [Catalytic activity/Vol] 28 U/L Normal <=34 [facility] Comment on above: Order Comment: 205 Performed By: #### L 500.4050, L501.5200, L501.2300, L100.0500 ####[facility] [address] [place], [address] AST [Catalytic activity/Vol] 31 U/L Normal <=31 [facility] Comment on above: Order Comment: 205 Performed By: #### L 500.4050, L501.5200, L501.2300, L100.0500 ####[facility] [address] [place], [address] BUN/CRE 49.5 RATIO High 10-20 [facility] Comment on above: Order Comment: 205 Performed By: #### L 500.4050, L501.5200, L501.2300, L100.0500 ####[facility] [address] [place], [address] Calcium [Mass/Vol] 8.9 mg/dL Normal 7.6-11.0 [facility] Comment on above: Order Comment: 205 Performed By: #### L 500.4050, L501.5200, L501.2300, L100.0500 ####[facility] [address] [place], [address] Chloride [Moles/Vol] 99 mmol/L Normal 98-108 [facility] Comment on above: Order Comment: 205 Performed By: #### L 500.4050, L501.5200, L501.2300, L100.0500 ####[facility] [address] [place], [address] CO2 [Moles/Vol] 26.6 mmol/L Normal 21.0-32.0 [facility] Comment on above: Order Comment: 205 Performed By: #### L 500.4050, L501.5200, L501.2300, L100.0500 ####[facility] [address] [place], [address] Creatinine [Mass/Vol] 0.41 mg/dL Low 0.70-1.20 [facility] Comment on above: Order Comment: 205 Performed By: #### L 500.4050, L501.5200, L501.2300, L100.0500 ####[facility] [address] [place], [address] GAP 12 Normal 5-15 [facility] Comment on above: Order Comment: 205 Performed By: #### L 500.4050, L501.5200, L501.2300, L100.0500 ####[facility] [address] [place], [address] GFR/1.73 sq M.predicted among non-blacks MDRD (S/P/Bld) [Vol rate/Area] 106 mL/min/{1.73_m2} Normal >60 [facility] Comment on above: Order Comment: 205 Result Comment: mL/m in/1.73m2 CKD-EPI Creatinine Equation (2020) Performed By: #### L 500.4050, L501.5200, L501.2300, L100.0500 ####[facility] [address] [place], [address] Globulin (S) [Mass/Vol] 3.3 g/dL Normal 2.2-4.2 [facility] Comment on above: Order Comment: 205 Performed By: #### L 500.4050, L501.5200, L501.2300, L100.0500 ####[facility] [address] [place], [address] Glucose [Mass/Vol] 113 mg/dL High 70-99 [facility] Comment on above: Order Comment: 205 Performed By: #### L 500.4050, L501.5200, L501.2300, L100.0500 ####[facility] [address] [place], [address] Potassium [Moles/Vol] 4.4 mmol/L Normal 3.3-5.1 [facility] Comment on above: Order Comment: 205 Performed By: #### L 500.4050, L501.5200, L501.2300, L100.0500 ####[facility] [address], [address] Sodium [Moles/Vol] 137 mmol/L Normal 133-145 [facility] Comment on above: Order Comment: 205 Performed By: #### L 500.4050, L501.5200, L501.2300, L100.0500 ####[facility] [address] [place], [address] T BILI < 0.15 Normal 0.00-1.30 [facility] Comment on above: Order Comment: 205 Performed By: #### L 500.4050, L501.5200, L501.2300, L100.0500 ####[facility] [address] [place], [address] T PROT 6.5 g/dL Normal 5.9-8.4 [facility] Comment on above: Order Comment: 205 Performed By: #### L 500.4050, L501.5200, L501.2300, L100.0500 ####[facility] [address] [place], [address] Urea nitrogen [Mass/Vol] 20 mg/dL High 4-19 [facility] Comment on above: Order Comment: 205 Performed By: #### L 500.4050, L501.5200, L501.2300, L100.0500 ####[facility] [address] [place], [address] Erythrocyte distribution wid th ratioOrdered By: Olya Piña on 09-27-2024 Erythrocyte distribution width (RBC) [Ratio] 17.9 % High 11.6-14.6 [facility] Erythrocyte distribution wid th standard deviationOrdered By: Olya Piña on 09-27-2024 Erythrocyte distribution width (RBC) [Ratio] 49.2 fl High 35.1-43.9 [facility] Glomerular filtration rate ( GFR) estimation/1.73 sq m using serum, plasma, or whole bOrdered By: Olya Piña on 09-27-2024 GFR/1.73 sq M.predicted among non-blacks MDRD (S/P/Bld) [Vol rate/Area] 106 mL/min/{1.73_m2} >60 [facility] Hematocrit Auto (Bld) [Volum e fraction]Ordered By: Olya Piña on 09-27-2024 Hematocrit (Bld) [Volume fraction] 32.0 % Low 37-47 [facility] Hemoglobin measurementOrdere d By: Olya Piña on 09-27-2024 Hemoglobin (Bld) [Mass/Vol] 9.7 g/dL Low 12.0-15.0 [facility] MCV (mean corpuscular volume ) determinationOrdered By: Olya Piña on 09-27-2024 MCV (RBC) [Entitic vol] 79.6 fL Low 81-99 [facility] Magnesiumon 09-27-2024 Magnesium [Mass/Vol] 2.1 mg/dL Normal 1.5-2.2 [facility] Comment on above: Order Comment: 205 Performed By: #### L 500.4050, L501.5200, L501.2300, L100.0500 ####[facility] [address] [place], [place], [id number] Magnesium measurement (mass/ volume)Ordered By: Olya Piña on 09-27-2024 Magnesium (Unsp spec) [Mass/Vol] 2.1 mg/dL 1.5-2.2 [facility] Mean corpuscular hemoglobin (MCH) determinationOrdered By: Olya Piña on 09-27-2024 MCH (RBC) [Entitic mass] 24.1 pg Low 27.0-32.0 [facility] No Panel InformationOrdered By: Olyaleslie Piña on 09-27-2024 31 U/L <32 [facility] Phosphoruson 09-27-2024 Phosphate [Mass/Vol] 4.0 mg/dL Normal 2.7-4.5 [facility] Comment on above: Order Comment: 205 Performed By: #### L 500.4050, L501.5200, L501.2300, L100.0500 ####[facility] [address] [place], [address] Platelet countOrdered By: Moe Piña on 09-27-2024 Platelets (Bld) [#/Vol] 542 10*3/uL High 150-450 [facility] Potassium measurement (mass/ volume)Ordered By: Olya Piña on 09-27-2024 Potassium (Unsp spec) [Mass/Vol] 4.4 mmol/L 3.3-5.1 [facility] RBC Auto (Bld) [#/Vol]Ordere d By: Olya Piña on 09-27-2024 RBC (Bld) [#/Vol] 4.02 10*6/uL Low 4.2-5.4 [facility] Serum creatinine measurement (mass/volume)Ordered By: Olya Piña on 09-27-2024 Creatinine [Mass/Vol] 0.41 mg/dL Low 0.70-1.20 [facility] Serum globulin measurementOr dered By: Olya Piña on 09-27-2024 Globulin (S) [Mass/Vol] 3.3 g/dL 2.2-4.2 [facility] Serum glucose measurement (m ass/volume)Ordered By: Olya Piña on 09-27-2024 Glucose [Mass/Vol] 113 mg/dL High 70-99 [facility] Serum or plasma alanine juarez otransferase (ALT) measurementOrdered By: Olya Piña on 09-27-2024 ALT [Catalytic activity/Vol] 28 U/L <35 [facility] Serum or plasma albumin cherelle urement (mass/volume)Ordered By: Olya Piña on 09-27-2024 Albumin [Mass/Vol] 3.2 g/dL Low 3.4-4.8 [facility] Serum or plasma albumin/glob ulin mass ratioOrdered By: Olya Piña on 09-27-2024 Albumin/Globulin [Mass ratio] 1.0 {ratio} 0.9-2.4 [facility] Serum or plasma alkaline piotr sphatase measurementOrdered By: Olya Piña on 09-27-2024 ALP [Catalytic activity/Vol] 161 U/L High 35-104 [facility] Serum or plasma calcium cherelle urement (mass/volume)Ordered By: Olya Piña on 09-27-2024 Calcium [Mass/Vol] 8.9 mg/dL 7.6-11.0 [facility] Serum or plasma urea nitroge n measurement (mass/volume)Ordered By: Olya Piña on 09-27-2024 Urea nitrogen [Mass/Vol] 20 mg/dL High 4-19 [facility] Sodium levelOrdered By: Deisy Piña on 09-27-2024 Sodium [Moles/Vol] 137 mmol/L 133-145 [facility] Total proteinOrdered By: Em Piña on 09-27-2024 Protein [Mass/Vol] 6.5 g/dL 5.9-8.4 [facility] White blood cell (WBC) count Ordered By: Olya Piña on 09-27-2024 WBC (Bld) [#/Vol] 9.3 10*3/uL 4.4-11.0 [facility] Anion gap in Serum or Plasma Ordered By: Olya Piña on 09-25-2024 Anion gap [Moles/Vol] 12 mmol/L 5-15 [facility] Automated blood erythrocyte countOrdered By: Olya Piña on 09-25-2024 RBC (Bld) [#/Vol] 3.87 10*6/uL Low 4.2-5.4 [facility] Comment on above: Order Comment: 205.1 Performed By: #### L 501.5000, L501.5200, L3300.9900, L100.0500, L501.2300, L500.4050 ####[facility] [address] [place], [place], [id number] Automated blood hematocrit ( percentage)Ordered By: Olya Piña on 09-25-2024 Hematocrit (Bld) [Volume fraction] 30.6 % Low 37-47 [facility] Comment on above: Order Comment: .1 Performed By: #### L 501.5000, L501.5200, L3300.9900, L100.0500, L501.2300, L500.4050 ####[facility] [address] [place], [address] BUN/creatinine ratioOrdered By: Olya Piña on 09-25-2024 Urea nitrogen/Creatinine [Mass ratio] 54.6 mg/mg High 10-20 [facility] Bilirubin, totalOrdered By: Olya Piña on 09-25-2024 Bilirubin [Mass/Vol] 0.18 mg/dL Normal 0.00-1.30 [facility] Comment on above: Order Comment: . Performed By: #### L 501.5000, L501.5200, L3300.9900, L100.0500, L501.2300, L500.4050 ####[facility] [address] [place], [place], [id number] CBC-Complete Blood Cnt No Di ffon 09-25-2024 MCHC (RBC) [Mass/Vol] 30.4 g/dL Low 32-36 [facility] Comment on above: Order Comment: . Performed By: #### L 501.5000, L501.5200, L3300.9900, L100.0500, L501.2300, L500.4050 ####[facility] [address] [place], [address] Platelet mean volume (Bld) [Entitic vol] 9.3 fL Normal 6.2-12.0 [facility] Comment on above: Order Comment: . Performed By: #### L 501.5000, L501.5200, L3300.9900, L100.0500, L501.2300, L500.4050 ####[facility] [address] [place], [address] RDW SD 49.6 fl High 35.1-43.9 [facility] Comment on above: Order Comment: 205.1 Performed By: #### L 501.5000, L501.5200, L3300.9900, L100.0500, L501.2300, L500.4050 ####[facility] [address] [place], [address] CNOVon 09-25-2024 CNOV Office Visit (GENSWS ) ----- YOKO EMANUEL ([id number]) 1955 F Date Time Provider Department 09/25/24 8:45 AM MIA SHEA During your visit today, we recorded the following information about you: Temperature Pulse Respiration Blood pressure 98.2 degrees 88/minute 14/minute 96/60 Weight Height 35.8 kg 1.549 m Mia Shea MD 09/26/2024 3:26 PM Signed Yoko Emanuel 1955 REFERRING PHYSICIAN: Olya Piña MD CHIEF COMPLAINT: No chief complaint on file. HPI: The patient is a 69 year old female presents with colocutaneous fistula. ([facility] - history obtained from patient). CT scan findings on 08/10/2024 revealed distal transverse colon fistula to the skin with no surrounding inflammation. She states that this has been present for about 4 years. She states that prior to this, about 6-7 years ago, she had pain in the area and "a rupture". She had presented to her PCP and she states that "he didn't do anything". She has been trying to care for the fistula herself. She denies pain in the area. She notes normal bowel movements. She notes that occasional "corn" and "green beans" would emanate from the fistula site. She denies major abdominal surgeries (had tubes tied) She denies blood in her stools. She denies previous colonoscopy. She notes no colon cancer in immediate family. She is presently in the assisted for failure to thrive and generalized weakness and decreased appetite. She had been found in her home (living alone) with poor hygiene (maggots on body) and malnutrition. She is recently status post right foot surgery for osteomyelitis. PAST MEDICAL HISTORY: CKD III Atherosclerotic disease - aortic/peripheral Cigarettes use - retirement, has quit since a [place] resident Diabetes S/p foot amputation surgery Chronic anemia Designated as ASAIII at another facility Chronic hyponatremia PAST SURGICAL HISTORY: Right foot amputation due to osteomyelitis Tubes tied MEDICATIONS: Aspirin Lipitor Gabapentin Atarax prn Insulin Percocet prn Remeron ALLERGIES: NKDA REVIEW OF SYSTEMS: General: The patient denies fatigue, notes weight loss, notes weight gain, denies feeling hot, and denies feelings of cold. Eyes: The patient denies glaucoma, denies eye injury/surgery, does not wear glasses or contacts. Ear/Nose/Throat: The patient denies allergies, denies hayfever, denies ear infections, and denies bloody noses. Cardiovascular: The patient denies chest pain, denies heart disease, denies high blood pressure,denies cardiac stent, denies prior heart attack, denies irregular heart beat, denies high cholesterol, denies poor circulation, denies heart failure, other cardiac issues, denies claudication, denies cold feet, denies peripheral arterial stent. Respiratory: The patient denies tuberculosis, notes pneumonia, denies frequent cough, denies pulmonary embolism, denies shortness of breath, and denies coughing up blood. Gastrointestinal: The patient notes difficulty swallowing, denies acid reflux, denies ulcers, denies vomiting, denies jaundice/hepatitis, denies gallbladder problems, denies black or tarry stools, denies hemorrhoids, denies bleeding from rectum, denies diverticulitis, denies constipation, denies diarrhea, denies loss of stool control, and denies hernias. Kidney/Bladder: The patient denies kidney stones, denies urine infections, and denies bloody urine. Skin: The patient denies a history of skin cancer, denies bleeding/changing moles, and denies a history of skin rash. Neurologic: The patient denies a history of epilepsy/convulsions, denies headaches, denies head/spinal injuries, and denies stroke/TIA. Psychiatric: The patient denies psychiatric medications, denies depression, and denies voices, denies substance abuse. Endocrine: The patient denies thyroid disorders, notes diabetes, and denies hormonal problems. Hematologic: The patient denies a history of bruising, denies bleeding, and denies anemia, denies blood clots. Infections: The patient denies a history of measles and mumps, denies rheumatic fever, and denies sexually transmitted diseases. Musculoskeletal: The patient denies back pain/injury, denies back problems, denies sciatica, notes knee/foot trouble, denies arthritis, or denies gout. PHYSICAL EXAMINATION: General: The patient is 69 year old female, well nourished, well hydrated in no acute distress. The patient is oriented to time, place, and person. VITALS: Blood pressure 96/60, pulse 88, temperature 36.8 ?C (98.2 ?F), temperature source Temporal, resp. rate 14, height 154.9 cm (5' 1"), weight 35.8 kg (79 lb), SpO2 99%. There is no height or weight on file to calculate BMI. Head: Normal cephalic, atraumatic Eyes: pupils are equally round, sclera are clear/anicteric Neck is (more content not included)... Normal [facility] Carbon dioxide, total [Moles /volume] in Central venous bloodOrdered By: Olya Piña on 09-25-2024 CO2 [Moles/Vol] 23.7 mmol/L Normal 21.0-32.0 [facility] Comment on above: Order Comment: 205.1 Performed By: #### L 501.5000, L501.5200, L3300.9900, L100.0500, L501.2300, L500.4050 ####[facility] [address] [place], [address] Chloride assayOrdered By: Moe Piña on 09-25-2024 Chloride [Moles/Vol] 101 mmol/L Normal 98-108 [facility] Comment on above: Order Comment: 205.1 Performed By: #### L 501.5000, L501.5200, L3300.9900, L100.0500, L501.2300, L500.4050 ####[facility] [address] [place], [address] Comprehensive Metabolic Prof ilon 09-25-2024 ALK PHOS 159 U/L High 35-104 [facility] Comment on above: Order Comment: .1 Performed By: #### L 501.5000, L501.5200, L3300.9900, L100.0500, L501.2300, L500.4050 ####[facility] [address] [place], [address] AST [Catalytic activity/Vol] 29 U/L Normal <=31 [facility] Comment on above: Order Comment: .1 Performed By: #### L 501.5000, L501.5200, L3300.9900, L100.0500, L501.2300, L500.4050 ####[facility] [address] [place], [address] BUN/CRE 54.6 RATIO High 10-20 [facility] Comment on above: Order Comment: .1 Performed By: #### L 501.5000, L501.5200, L3300.9900, L100.0500, L501.2300, L500.4050 ####[facility] [address] [place], [address] GAP 12 Normal 5-15 [facility] Comment on above: Order Comment: .1 Performed By: #### L 501.5000, L501.5200, L3300.9900, L100.0500, L501.2300, L500.4050 ####[facility] [address] [place], [address] Potassium [Moles/Vol] 4.4 mmol/L Normal 3.3-5.1 [facility] Comment on above: Order Comment: . Performed By: #### L 501.5000, L501.5200, L3300.9900, L100.0500, L501.2300, L500.4050 ####[facility] [address] [place], [place], [id number] T PROT 6.3 g/dL Normal 5.9-8.4 [facility] Comment on above: Order Comment: . Performed By: #### L 501.5000, L501.5200, L3300.9900, L100.0500, L501.2300, L500.4050 ####[facility] [address] [place], [place], [address] Erythrocyte distribution wid th ratioOrdered By: Olya Piña on 09-25-2024 Erythrocyte distribution width (RBC) [Ratio] 17.8 % High 11.6-14.6 [facility] Comment on above: Order Comment: Performed By: #### L 501.5000, L501.5200, L3300.9900, L100.0500, L501.2300, L500.4050 ####[facility] [address] [place], [place], [id number] Erythrocyte distribution wid th standard deviationOrdered By: Olya Piña on 09-25-2024 Erythrocyte distribution width (RBC) [Ratio] 49.6 fl High 35.1-43.9 [facility] Glomerular filtration rate ( GFR) estimation/1.73 sq m using serum, plasma, or whole bOrdered By: Olya Piña on 09-25-2024 GFR/1.73 sq M.predicted among non-blacks MDRD (S/P/Bld) [Vol rate/Area] 111 mL/min/{1.73_m2} Normal >60 [facility] Comment on above: Order Comment: . Result Comment: mL/m in/1.73m2 CKD-EPI Creatinine Equation (2020) Performed By: #### L 501.5000, L501.5200, L3300.9900, L100.0500, L501.2300, L500.4050 ####[facility] [address] [place], [address] Hemoglobin measurementOrdere d By: Olya Piña on 09-25-2024 Hemoglobin (Bld) [Mass/Vol] 9.3 g/dL Low 12.0-15.0 [facility] Comment on above: Order Comment: 205.1 Performed By: #### L 501.5000, L501.5200, L3300.9900, L100.0500, L501.2300, L500.4050 ####[facility] [address] [place], [address] MCV (mean corpuscular volume ) determinationOrdered By: Olya Piña on 09-25-2024 MCV (RBC) [Entitic vol] 79.1 fL Low 81-99 [facility] Comment on above: Order Comment: 205.1 Performed By: #### L 501.5000, L501.5200, L3300.9900, L100.0500, L501.2300, L500.4050 ####[facility] [address] [place], [address] Magnesiumon 09-25-2024 Magnesium [Mass/Vol] 2.1 mg/dL Normal 1.5-2.2 [facility] Comment on above: Order Comment: 205.1 Performed By: #### L 501.5000, L501.5200, L3300.9900, L100.0500, L501.2300, L500.4050 ####[facility] [address] [place], [address] Magnesium measurement (mass/ volume)Ordered By: Olya Piña on 09-25-2024 Magnesium (Unsp spec) [Mass/Vol] 2.1 mg/dL 1.5-2.2 [facility] Mean corpuscular hemoglobin (MCH) determinationOrdered By: Olya Piña on 09-25-2024 MCH (RBC) [Entitic mass] 24.0 pg Low 27.0-32.0 [facility] Comment on above: Order Comment: . Performed By: #### L 501.5000, L501.5200, L3300.9900, L100.0500, L501.2300, L500.4050 ####[facility] [address] [place], [place], [id number] No Panel InformationOrdered By: Olya Piña on 09-25-2024 29 U/L <32 [facility] Phosphoruson 09-25-2024 Phosphate [Mass/Vol] 3.8 mg/dL Normal 2.7-4.5 [facility] Comment on above: Order Comment: . Performed By: #### L 501.5000, L501.5200, L3300.9900, L100.0500, L501.2300, L500.4050 ####[facility] [address] [place], [place], [phone] Platelet countOrdered By: Moe Piña on 09-25-2024 Platelets (Bld) [#/Vol] 493 10*3/uL High 150-450 [facility] Comment on above: Order Comment: . Performed By: #### L 501.5000, L501.5200, L3300.9900, L100.0500, L501.2300, L500.4050 ####[facility] [address] [place], [place], [phone] Potassium measurement (mass/ volume)Ordered By: Olya Piña on 09-25-2024 Potassium (Unsp spec) [Mass/Vol] 4.4 mmol/L 3.3-5.1 [facility] Serum creatinine measurement (mass/volume)Ordered By: Olya Piña on 09-25-2024 Creatinine [Mass/Vol] 0.34 mg/dL Low 0.70-1.20 [facility] Comment on above: Order Comment: 205. Performed By: #### L 501.5000, L501.5200, L3300.9900, L100.0500, L501.2300, L500.4050 ####[facility] [address] [place], [address] Serum globulin measurementOr dered By: Olya Piña on 09-25-2024 Globulin (S) [Mass/Vol] 3.2 g/dL Normal 2.2-4.2 [facility] Comment on above: Order Comment: 205.1 Performed By: #### L 501.5000, L501.5200, L3300.9900, L100.0500, L501.2300, L500.4050 ####[facility] [address] [place], [address] Serum glucose measurement (m ass/volume)Ordered By: Olya Piña on 09-25-2024 Glucose [Mass/Vol] 140 mg/dL High 70-99 [facility] Comment on above: Order Comment: 205.1 Performed By: #### L 501.5000, L501.5200, L3300.9900, L100.0500, L501.2300, L500.4050 ####[facility] [address] [place], [address] Serum or plasma alanine juarez otransferase (ALT) measurementOrdered By: Olya Piña on 09-25-2024 ALT [Catalytic activity/Vol] 31 U/L Normal <=34 [facility] Comment on above: Order Comment: 205.1 Performed By: #### L 501.5000, L501.5200, L3300.9900, L100.0500, L501.2300, L500.4050 ####[facility] [address] [place], [address] Serum or plasma albumin cherelle urement (mass/volume)Ordered By: Olya Piña on 09-25-2024 Albumin [Mass/Vol] 3.1 g/dL Low 3.4-4.8 [facility] Comment on above: Order Comment: 205. Performed By: #### L 501.5000, L501.5200, L3300.9900, L100.0500, L501.2300, L500.4050 ####[facility] [address] [place], [address] Serum or plasma albumin/glob ulin mass ratioOrdered By: Olya Piña on 09-25-2024 Albumin/Globulin [Mass ratio] 1.0 {ratio} Normal 0.9-2.4 [facility] Comment on above: Order Comment: . Performed By: #### L 501.5000, L501.5200, L3300.9900, L100.0500, L501.2300, L500.4050 ####[facility] [address] [place], [address] Serum or plasma alkaline piotr sphatase measurementOrdered By: Olya Piña on 09-25-2024 ALP [Catalytic activity/Vol] 159 U/L High 35-104 [facility] Serum or plasma calcium cherelle urement (mass/volume)Ordered By: Olya Piña on 09-25-2024 Calcium [Mass/Vol] 8.8 mg/dL Normal 7.6-11.0 [facility] Comment on above: Order Comment: . Performed By: #### L 501.5000, L501.5200, L3300.9900, L100.0500, L501.2300, L500.4050 ####[facility] [address] [place], [address] Serum or plasma urea nitroge n measurement (mass/volume)Ordered By: Olya Piña on 09-25-2024 Urea nitrogen [Mass/Vol] 19 mg/dL Normal 4-19 [facility] Comment on above: Order Comment: 205. Performed By: #### L 501.5000, L501.5200, L3300.9900, L100.0500, L501.2300, L500.4050 ####[facility] [address] [place], [place], [phone] Serum or plasma zinc measure ment (mass/volume)Ordered By: Olya Piña on 09-25-2024 Zinc [Mass/Vol] 59 ug/dL 44-115 [facility] Sodium levelOrdered By: Deisy Piña on 09-25-2024 Sodium [Moles/Vol] 137 mmol/L Normal 133-145 [facility] Comment on above: Order Comment: 205.1 Performed By: #### L 501.5000, L501.5200, L3300.9900, L100.0500, L501.2300, L500.4050 ####[facility] [address], [address] Total proteinOrdered By: Em Piña on 09-25-2024 Protein [Mass/Vol] 6.3 g/dL 5.9-8.4 [facility] Triglycerideson 09-25-2024 Triglyceride [Mass/Vol] 54 mg/dL Normal [facility] Comment on above: Order Comment: 205.1 Result Comment: The drugs N-Acetylcysteine and Metamizole may falselydepress this assay.Normal range: <150 mg/dLBorderline High: 150-199 mg/dLHigh: 200-499 mg/dLVery High: >500 mg/dL Performed By: #### L 501.5000, L501.5200, L3300.9900, L100.0500, L501.2300, L500.4050 ####[facility] [address] [place], [place], [phone] White blood cell (WBC) count Ordered By: Olya Piña on 09-25-2024 WBC (Bld) [#/Vol] 10.6 10*3/uL Normal 4.4-11.0 [facility] Comment on above: Order Comment: 205.1 Performed By: #### L 501.5000, L501.5200, L3300.9900, L100.0500, L501.2300, L500.4050 ####[facility] [address] [place], [address] Anion gap in Serum or Plasma Ordered By: Olya Piña on 09-22-2024 Anion gap [Moles/Vol] 11 mmol/L 5-15 [facility] BUN/creatinine ratioOrdered By: Olya Piña on 09-22-2024 Urea nitrogen/Creatinine [Mass ratio] 35.4 mg/mg High 10-20 [facility] Bilirubin, totalOrdered By: Olyaleslie Piña on 09-22-2024 Bilirubin [Mass/Vol] 0.22 mg/dL 0.00-1.30 [facility] CBC-Complete Blood Cnt No Di ffon 09-22-2024 Erythrocyte distribution width (RBC) [Ratio] 18.1 % High 11.6-14.6 [facility] Comment on above: Order Comment: Performed By: #### L 500.4050, L501.2300, L501.5000, L501.5200, L100.0500 ####[facility] [address] [place], [address] Hematocrit (Bld) [Volume fraction] 32.8 % Low 37-47 [facility] Comment on above: Order Comment: Performed By: #### L 500.4050, L501.2300, L501.5000, L501.5200, L100.0500 ####[facility] [address] [place], [address] Hemoglobin (Bld) [Mass/Vol] 9.8 g/dL Low 12.0-15.0 [facility] Comment on above: Order Comment: Performed By: #### L 500.4050, L501.2300, L501.5000, L501.5200, L100.0500 ####[facility] [address] [place], [address] MCH (RBC) [Entitic mass] 24.4 pg Low 27.0-32.0 [facility] Comment on above: Order Comment: Performed By: #### L 500.4050, L501.2300, L501.5000, L501.5200, L100.0500 ####[facility] [address] [place], [address] MCHC (RBC) [Mass/Vol] 29.9 g/dL Low 32-36 [facility] Comment on above: Order Comment: Performed By: #### L 500.4050, L501.2300, L501.5000, L501.5200, L100.0500 ####[facility] [address] [place], [address] MCV (RBC) [Entitic vol] 81.6 fL Normal 81-99 [facility] Comment on above: Order Comment: Performed By: #### L 500.4050, L501.2300, L501.5000, L501.5200, L100.0500 ####[facility] [address] [place], [address] Platelet mean volume (Bld) [Entitic vol] 9.2 fL Normal 6.2-12.0 [facility] Comment on above: Order Comment: Performed By: #### L 500.4050, L501.2300, L501.5000, L501.5200, L100.0500 ####[facility] [address] [place], [address] Platelets (Bld) [#/Vol] 443 10*3/uL Normal 150-450 [facility] Comment on above: Order Comment: Performed By: #### L 500.4050, L501.2300, L501.5000, L501.5200, L100.0500 ####[facility] [address] [place], [address] RBC (Bld) [#/Vol] 4.02 10*6/uL Low 4.2-5.4 [facility] Comment on above: Order Comment: Performed By: #### L 500.4050, L501.2300, L501.5000, L501.5200, L100.0500 ####[facility] [address] [place], [address] RDW SD 51.4 fl High 35.1-43.9 [facility] Comment on above: Order Comment: Performed By: #### L 500.4050, L501.2300, L501.5000, L501.5200, L100.0500 ####[facility] [address] [place], [address] WBC (Bld) [#/Vol] 9.2 10*3/uL Normal 4.4-11.0 [facility] Comment on above: Order Comment: Performed By: #### L 500.4050, L501.2300, L501.5000, L501.5200, L100.0500 ####[facility] [address] [place], [address] Carbon dioxide, total [Moles /volume] in Central venous bloodOrdered By: Olya Piña on 09-22-2024 CO2 [Moles/Vol] 26.4 mmol/L 21.0-32.0 [facility] Chloride assayOrdered By: Moe Piña on 09-22-2024 Chloride [Moles/Vol] 101 mmol/L 98-108 [facility] Comprehensive Metabolic Prof ilon 09-22-2024 Albumin [Mass/Vol] 3.0 g/dL Low 3.4-4.8 [facility] Comment on above: Order Comment: Performed By: #### L 500.4050, L501.2300, L501.5000, L501.5200, L100.0500 ####[facility] [address] [place], [address] Albumin/Globulin [Mass ratio] 1.0 {ratio} Normal 0.9-2.4 [facility] Comment on above: Order Comment: Performed By: #### L 500.4050, L501.2300, L501.5000, L501.5200, L100.0500 ####[facility] [address] [place], [address] ALK PHOS 157 U/L High 35-104 [facility] Comment on above: Order Comment: Performed By: #### L 500.4050, L501.2300, L501.5000, L501.5200, L100.0500 ####[facility] [address] [place], [address] ALT [Catalytic activity/Vol] 32 U/L Normal <=34 [facility] Comment on above: Order Comment: Performed By: #### L 500.4050, L501.2300, L501.5000, L501.5200, L100.0500 ####[facility] [address] [place], [address] AST [Catalytic activity/Vol] 32 U/L Normal <=31 [facility] Comment on above: Order Comment: Performed By: #### L 500.4050, L501.2300, L501.5000, L501.5200, L100.0500 ####[facility] [address] [place], [address] Bilirubin [Mass/Vol] 0.22 mg/dL Normal 0.00-1.30 [facility] Comment on above: Order Comment: Performed By: #### L 500.4050, L501.2300, L501.5000, L501.5200, L100.0500 ####[facility] [address] [place], [address] BUN/CRE 35.4 RATIO High 10-20 [facility] Comment on above: Order Comment: Performed By: #### L 500.4050, L501.2300, L501.5000, L501.5200, L100.0500 ####[facility] [address] [place], [address] Calcium [Mass/Vol] 8.8 mg/dL Normal 7.6-11.0 [facility] Comment on above: Order Comment: Performed By: #### L 500.4050, L501.2300, L501.5000, L501.5200, L100.0500 ####[facility] [address] [place], [address] Chloride [Moles/Vol] 101 mmol/L Normal 98-108 [facility] Comment on above: Order Comment: Performed By: #### L 500.4050, L501.2300, L501.5000, L501.5200, L100.0500 ####[facility] [address] [place], [address] CO2 [Moles/Vol] 26.4 mmol/L Normal 21.0-32.0 [facility] Comment on above: Order Comment: Performed By: #### L 500.4050, L501.2300, L501.5000, L501.5200, L100.0500 ####[facility] [address] [place], [address] Creatinine [Mass/Vol] 0.45 mg/dL Low 0.70-1.20 [facility] Comment on above: Order Comment: Performed By: #### L 500.4050, L501.2300, L501.5000, L501.5200, L100.0500 ####[facility] [address] [place], [address] GAP 11 Normal 5-15 [facility] Comment on above: Order Comment: Performed By: #### L 500.4050, L501.2300, L501.5000, L501.5200, L100.0500 ####[facility] [address] [place], [address] GFR/1.73 sq M.predicted among non-blacks MDRD (S/P/Bld) [Vol rate/Area] 104 mL/min/{1.73_m2} Normal >60 [facility] Comment on above: Order Comment: Result Comment: mL/m in/1.73m2 CKD-EPI Creatinine Equation (2020) Performed By: #### L 500.4050, L501.2300, L501.5000, L501.5200, L100.0500 ####[facility] [address] [place], [address] Globulin (S) [Mass/Vol] 3.1 g/dL Normal 2.2-4.2 [facility] Comment on above: Order Comment: Performed By: #### L 500.4050, L501.2300, L501.5000, L501.5200, L100.0500 ####[facility] [address] [place], [address] Glucose [Mass/Vol] 96 mg/dL Normal 70-99 [facility] Comment on above: Order Comment: Performed By: #### L 500.4050, L501.2300, L501.5000, L501.5200, L100.0500 ####[facility] [address] [place], [address] Potassium [Moles/Vol] 4.4 mmol/L Normal 3.3-5.1 [facility] Comment on above: Order Comment: Performed By: #### L 500.4050, L501.2300, L501.5000, L501.5200, L100.0500 ####[facility] [address] [place], [address] Sodium [Moles/Vol] 138 mmol/L Normal 133-145 [facility] Comment on above: Order Comment: Performed By: #### L 500.4050, L501.2300, L501.5000, L501.5200, L100.0500 ####[facility] [address] [place], [place], [address] T PROT 6.1 g/dL Normal 5.9-8.4 [facility] Comment on above: Order Comment: Performed By: #### L 500.4050, L501.2300, L501.5000, L501.5200, L100.0500 ####[facility] [address] [place], [address] Urea nitrogen [Mass/Vol] 16 mg/dL Normal 4-19 [facility] Comment on above: Order Comment: Performed By: #### L 500.4050, L501.2300, L501.5000, L501.5200, L100.0500 ####[facility] [address] [place], [place], [address] Erythrocyte distribution wid th ratioOrdered By: Olya Piña on 09-22-2024 Erythrocyte distribution width (RBC) [Ratio] 18.1 % High 11.6-14.6 [facility] Erythrocyte distribution wid th standard deviationOrdered By: Olya Piña on 09-22-2024 Erythrocyte distribution width (RBC) [Ratio] 51.4 fl High 35.1-43.9 [facility] Glomerular filtration rate ( GFR) estimation/1.73 sq m using serum, plasma, or whole bOrdered By: Olya Piña on 09-22-2024 GFR/1.73 sq M.predicted among non-blacks MDRD (S/P/Bld) [Vol rate/Area] 104 mL/min/{1.73_m2} >60 [facility] Hematocrit Auto (Bld) [Volum e fraction]Ordered By: Olya Piña on 04-25-2025 Hematocrit (Bld) [Volume fraction] 32.8 % Low 37-47 [facility] Hemoglobin measurementOrdere d By: Olya Piña on 09-22-2024 Hemoglobin (Bld) [Mass/Vol] 9.8 g/dL Low 12.0-15.0 [facility] MCV (mean corpuscular volume ) determinationOrdered By: Olya Piña on 09-22-2024 MCV (RBC) [Entitic vol] 81.6 fL 81-99 [facility] Magnesiumon 09-22-2024 Magnesium [Mass/Vol] 2.2 mg/dL Normal 1.5-2.2 [facility] Comment on above: Order Comment: Performed By: #### L 500.4050, L501.2300, L501.5000, L501.5200, L100.0500 ####[facility] [address] [place], [place], [phone] Magnesium measurement (mass/ volume)Ordered By: Olya Piña on 09-22-2024 Magnesium (Unsp spec) [Mass/Vol] 2.2 mg/dL 1.5-2.2 [facility] Mean corpuscular hemoglobin (MCH) determinationOrdered By: Olya Piña on 09-22-2024 MCH (RBC) [Entitic mass] 24.4 pg Low 27.0-32.0 [facility] No Panel InformationOrdered By: Olya Piña on 09-22-2024 32 U/L <32 [facility] Phosphoruson 09-22-2024 Phosphate [Mass/Vol] 3.7 mg/dL Normal 2.7-4.5 [facility] Comment on above: Order Comment: Performed By: #### L 500.4050, L501.2300, L501.5000, L501.5200, L100.0500 ####[facility] [address] [place], [place], [id number] Platelet countOrdered By: Moe Piña on 09-22-2024 Platelets (Bld) [#/Vol] 443 10*3/uL 150-450 [facility] Potassium measurement (mass/ volume)Ordered By: Olya Piña on 09-22-2024 Potassium (Unsp spec) [Mass/Vol] 4.4 mmol/L 3.3-5.1 [facility] RBC Auto (Bld) [#/Vol]Ordere d By: Olya Piña on 09-22-2024 RBC (Bld) [#/Vol] 4.02 10*6/uL Low 4.2-5.4 [facility] Serum creatinine measurement (mass/volume)Ordered By: Olya Piña on 09-22-2024 Creatinine [Mass/Vol] 0.45 mg/dL Low 0.70-1.20 [facility] Serum globulin measurementOr dered By: Olya Piña on 09-22-2024 Globulin (S) [Mass/Vol] 3.1 g/dL 2.2-4.2 [facility] Serum glucose measurement (m ass/volume)Ordered By: Olya Piña on 09-22-2024 Glucose [Mass/Vol] 96 mg/dL 70-99 [facility] Serum or plasma alanine juarez otransferase (ALT) measurementOrdered By: Olya Piña on 09-22-2024 ALT [Catalytic activity/Vol] 32 U/L <35 [facility] Serum or plasma albumin cherelle urement (mass/volume)Ordered By: Olya Piña on 09-22-2024 Albumin [Mass/Vol] 3.0 g/dL Low 3.4-4.8 [facility] Serum or plasma albumin/glob ulin mass ratioOrdered By: Olya Piña on 09-22-2024 Albumin/Globulin [Mass ratio] 1.0 {ratio} 0.9-2.4 [facility] Serum or plasma alkaline piotr sphatase measurementOrdered By: Olya Piña on 09-22-2024 ALP [Catalytic activity/Vol] 157 U/L High 35-104 [facility] Serum or plasma calcium cherelle urement (mass/volume)Ordered By: Olya Piña on 09-22-2024 Calcium [Mass/Vol] 8.8 mg/dL 7.6-11.0 [facility] Serum or plasma urea nitroge n measurement (mass/volume)Ordered By: Olya Piña on 09-22-2024 Urea nitrogen [Mass/Vol] 16 mg/dL 4-19 [facility] Sodium levelOrdered By: Deisy Piña on 09-22-2024 Sodium [Moles/Vol] 138 mmol/L 133-145 [facility] Total proteinOrdered By: Em Piña on 09-22-2024 Protein [Mass/Vol] 6.1 g/dL 5.9-8.4 [facility] Triglycerideson 09-22-2024 Triglyceride [Mass/Vol] 56 mg/dL Normal [facility] Comment on above: Order Comment: Result Comment: The drugs N-Acetylcysteine and Metamizole may falselydepress this assay.Normal range: <150 mg/dLBorderline High: 150-199 mg/dLHigh: 200-499 mg/dLVery High: >500 mg/dL Performed By: #### L 500.4050, L501.2300, L501.5000, L501.5200, L100.0500 ####[facility] [address] [facility] [place], [place], [id number] White blood cell (WBC) count Ordered By: Olya Piña on 09-22-2024 WBC (Bld) [#/Vol] 9.2 10*3/uL 4.4-11.0 [facility] Anion gap in Serum or Plasma Ordered By: Olya Piña on 09-20-2024 Anion gap [Moles/Vol] 10 mmol/L 5-15 [facility] BUN/creatinine ratioOrdered By: Olya Piña on 09-20-2024 Urea nitrogen/Creatinine [Mass ratio] 37.4 mg/mg High 10-20 [facility] Bilirubin, totalOrdered By: Olya Piña on 09-20-2024 Bilirubin [Mass/Vol] 0.19 mg/dL 0.00-1.30 [facility] CBC-Complete Blood Cnt No Di ffon 09-20-2024 Erythrocyte distribution width (RBC) [Ratio] 18.6 % High 11.6-14.6 [facility] Comment on above: Order Comment: 200 Performed By: #### L 501.2300, L100.0500, L501.5000, L501.5200, L500.4050 ####[facility] [address] [place], [address] Hematocrit (Bld) [Volume fraction] 30.6 % Low 37-47 [facility] Comment on above: Order Comment: 200 Performed By: #### L 501.2300, L100.0500, L501.5000, L501.5200, L500.4050 ####[facility] [facility] [address] [place], [address] Hemoglobin (Bld) [Mass/Vol] 9.0 g/dL Low 12.0-15.0 [facility] Comment on above: Order Comment: 200 Performed By: #### L 501.2300, L100.0500, L501.5000, L501.5200, L500.4050 ####[facility] [address] [place], [address] MCH (RBC) [Entitic mass] 24.1 pg Low 27.0-32.0 [facility] Comment on above: Order Comment: 200 Performed By: #### L 501.2300, L100.0500, L501.5000, L501.5200, L500.4050 ####[facility] [address] [place], [address] MCHC (RBC) [Mass/Vol] 29.4 g/dL Low 32-36 [facility] Comment on above: Order Comment: 200 Performed By: #### L 501.2300, L100.0500, L501.5000, L501.5200, L500.4050 ####[facility] [address] [place], [address] MCV (RBC) [Entitic vol] 82.0 fL Normal 81-99 [facility] Comment on above: Order Comment: 200 Performed By: #### L 501.2300, L100.0500, L501.5000, L501.5200, L500.4050 ####[facility] [address] [place], [address] Platelet mean volume (Bld) [Entitic vol] 9.3 fL Normal 6.2-12.0 [facility] Comment on above: Order Comment: 200 Performed By: #### L 501.2300, L100.0500, L501.5000, L501.5200, L500.4050 ####[facility] [address] [place], [address] Platelets (Bld) [#/Vol] 434 10*3/uL Normal 150-450 [facility] Comment on above: Order Comment: 200 Performed By: #### L 501.2300, L100.0500, L501.5000, L501.5200, L500.4050 ####[facility] [address] [place], [address] RBC (Bld) [#/Vol] 3.73 10*6/uL Low 4.2-5.4 [facility] Comment on above: Order Comment: 200 Performed By: #### L 501.2300, L100.0500, L501.5000, L501.5200, L500.4050 ####[facility] [address] [place], [address] RDW SD 53.1 fl High 35.1-43.9 [facility] Comment on above: Order Comment: 200 Performed By: #### L 501.2300, L100.0500, L501.5000, L501.5200, L500.4050 ####[facility] [address] [place], [address] WBC (Bld) [#/Vol] 9.1 10*3/uL Normal 4.4-11.0 [facility] Comment on above: Order Comment: 200 Performed By: #### L 501.2300, L100.0500, L501.5000, L501.5200, L500.4050 ####[facility] [address] [place], [address] Carbon dioxide, total [Moles /volume] in Central venous bloodOrdered By: Olya Piña on 09-20-2024 CO2 [Moles/Vol] 25.7 mmol/L 21.0-32.0 [facility] Chloride assayOrdered By: Moe Piña on 09-20-2024 Chloride [Moles/Vol] 100 mmol/L 98-108 [facility] Comprehensive Metabolic Prof ilon 09-20-2024 Albumin [Mass/Vol] 3.0 g/dL Low 3.4-4.8 [facility] Comment on above: Order Comment: 200 Performed By: #### L 501.2300, L100.0500, L501.5000, L501.5200, L500.4050 ####[facility] [address] [place], [address] Albumin/Globulin [Mass ratio] 1.0 {ratio} Normal 0.9-2.4 [facility] Comment on above: Order Comment: 200 Performed By: #### L 501.2300, L100.0500, L501.5000, L501.5200, L500.4050 ####[facility] [address] [place], [address] ALK PHOS 159 U/L High 35-104 [facility] Comment on above: Order Comment: 200 Performed By: #### L 501.2300, L100.0500, L501.5000, L501.5200, L500.4050 ####[facility] [address] [place], [address] ALT [Catalytic activity/Vol] 37 U/L High <=34 [facility] Comment on above: Order Comment: 200 Performed By: #### L 501.2300, L100.0500, L501.5000, L501.5200, L500.4050 ####[facility] [address] [place], [address] AST [Catalytic activity/Vol] 40 U/L High <=31 [facility] Comment on above: Order Comment: 200 Performed By: #### L 501.2300, L100.0500, L501.5000, L501.5200, L500.4050 ####[facility] [address] [place], [address] Bilirubin [Mass/Vol] 0.19 mg/dL Normal 0.00-1.30 [facility] Comment on above: Order Comment: 200 Performed By: #### L 501.2300, L100.0500, L501.5000, L501.5200, L500.4050 ####[facility] [address] [place], [address] BUN/CRE 37.4 RATIO High 10-20 [facility] Comment on above: Order Comment: 200 Performed By: #### L 501.2300, L100.0500, L501.5000, L501.5200, L500.4050 ####[facility] [address] [place], [address] Calcium [Mass/Vol] 8.6 mg/dL Normal 7.6-11.0 [facility] Comment on above: Order Comment: 200 Performed By: #### L 501.2300, L100.0500, L501.5000, L501.5200, L500.4050 ####[facility] [address] [place], [address] Chloride [Moles/Vol] 100 mmol/L Normal 98-108 [facility] Comment on above: Order Comment: 200 Performed By: #### L 501.2300, L100.0500, L501.5000, L501.5200, L500.4050 ####[facility] [address] [place], [address] CO2 [Moles/Vol] 25.7 mmol/L Normal 21.0-32.0 [facility] Comment on above: Order Comment: 200 Performed By: #### L 501.2300, L100.0500, L501.5000, L501.5200, L500.4050 ####[facility] [address] [place], [address] Creatinine [Mass/Vol] 0.44 mg/dL Low 0.70-1.20 [facility] Comment on above: Order Comment: 200 Performed By: #### L 501.2300, L100.0500, L501.5000, L501.5200, L500.4050 ####[facility] [address] [place], [address] GAP 10 Normal 5-15 [facility] Comment on above: Order Comment: 200 Performed By: #### L 501.2300, L100.0500, L501.5000, L501.5200, L500.4050 ####[facility] [address] [place], [address] GFR/1.73 sq M.predicted among non-blacks MDRD (S/P/Bld) [Vol rate/Area] 105 mL/min/{1.73_m2} Normal >60 [facility] Comment on above: Order Comment: 200 Result Comment: mL/m in/1.73m2 CKD-EPI Creatinine Equation (2020) Performed By: #### L 501.2300, L100.0500, L501.5000, L501.5200, L500.4050 ####[facility] [address] [place], [address] Globulin (S) [Mass/Vol] 3.0 g/dL Normal 2.2-4.2 [facility] Comment on above: Order Comment: 200 Performed By: #### L 501.2300, L100.0500, L501.5000, L501.5200, L500.4050 ####[facility] [address] [place], [address] Glucose [Mass/Vol] 274 mg/dL High 70-99 [facility] Comment on above: Order Comment: 200 Performed By: #### L 501.2300, L100.0500, L501.5000, L501.5200, L500.4050 ####[facility] [address] [place], [address] Potassium [Moles/Vol] 4.3 mmol/L Normal 3.3-5.1 [facility] Comment on above: Order Comment: 200 Performed By: #### L 501.2300, L100.0500, L501.5000, L501.5200, L500.4050 ####[facility] [address] [place], [address] Sodium [Moles/Vol] 135 mmol/L Normal 133-145 [facility] Comment on above: Order Comment: 200 Performed By: #### L 501.2300, L100.0500, L501.5000, L501.5200, L500.4050 ####[facility] [address] [place], [address] T PROT 6.0 g/dL Normal 5.9-8.4 [facility] Comment on above: Order Comment: 200 Performed By: #### L 501.2300, L100.0500, L501.5000, L501.5200, L500.4050 ####[facility] [address] [place], [address] Urea nitrogen [Mass/Vol] 17 mg/dL Normal 4-19 [facility] Comment on above: Order Comment: 200 Performed By: #### L 501.2300, L100.0500, L501.5000, L501.5200, L500.4050 ####[facility] [address] [place], [place], [address] Erythrocyte distribution wid th ratioOrdered By: Olya Piña on 09-20-2024 Erythrocyte distribution width (RBC) [Ratio] 18.6 % High 11.6-14.6 [facility] Erythrocyte distribution wid th standard deviationOrdered By: Olya Piañ on 09-20-2024 Erythrocyte distribution width (RBC) [Ratio] 53.1 fl High 35.1-43.9 [facility] Glomerular filtration rate ( GFR) estimation/1.73 sq m using serum, plasma, or whole bOrdered By: Olya Piña on 09-20-2024 GFR/1.73 sq M.predicted among non-blacks MDRD (S/P/Bld) [Vol rate/Area] 105 mL/min/{1.73_m2} >60 [facility] Hematocrit Auto (Bld) [Volum e fraction]Ordered By: Olya Piña on 09-20-2024 Hematocrit (Bld) [Volume fraction] 30.6 % Low 37-47 [facility] Hemoglobin measurementOrdere d By: Olya Piña on 09-20-2024 Hemoglobin (Bld) [Mass/Vol] 9.0 g/dL Low 12.0-15.0 [facility] MCV (mean corpuscular volume ) determinationOrdered By: Olya Piña on 09-20-2024 MCV (RBC) [Entitic vol] 82.0 fL 81-99 [facility] Magnesiumon 09-20-2024 Magnesium [Mass/Vol] 2.1 mg/dL Normal 1.5-2.2 [facility] Comment on above: Order Comment: 200 Performed By: #### L 501.2300, L100.0500, L501.5000, L501.5200, L500.4050 ####[facility] [address] [place], [address] Magnesium measurement (mass/ volume)Ordered By: Olya Piña on 09-20-2024 Magnesium (Unsp spec) [Mass/Vol] 2.1 mg/dL 1.5-2.2 [facility] Mean corpuscular hemoglobin (MCH) determinationOrdered By: Olya Piña on 09-20-2024 MCH (RBC) [Entitic mass] 24.1 pg Low 27.0-32.0 [facility] No Panel InformationOrdered By: Olya Piña on 09-20-2024 40 U/L High <32 [facility] Phosphoruson 09-20-2024 Phosphate [Mass/Vol] 3.7 mg/dL Normal 2.7-4.5 [facility] Comment on above: Order Comment: 200 Performed By: #### L 501.2300, L100.0500, L501.5000, L501.5200, L500.4050 ####[facility] [address] [place], [address] Platelet countOrdered By: Moe Piña on 09-20-2024 Platelets (Bld) [#/Vol] 434 10*3/uL 150-450 [facility] Potassium measurement (mass/ volume)Ordered By: Olya Piña on 09-20-2024 Potassium (Unsp spec) [Mass/Vol] 4.3 mmol/L 3.3-5.1 [facility] RBC Auto (Bld) [#/Vol]Ordere d By: Olya Piña on 09-20-2024 RBC (Bld) [#/Vol] 3.73 10*6/uL Low 4.2-5.4 [facility] Serum creatinine measurement (mass/volume)Ordered By: Olya Piña on 09-20-2024 Creatinine [Mass/Vol] 0.44 mg/dL Low 0.70-1.20 [facility] Serum globulin measurementOr dered By: Olya Piña on 09-20-2024 Globulin (S) [Mass/Vol] 3.0 g/dL 2.2-4.2 [facility] Serum glucose measurement (m ass/volume)Ordered By: Olya Piña on 09-20-2024 Glucose [Mass/Vol] 274 mg/dL High 70-99 [facility] Serum or plasma alanine juarez otransferase (ALT) measurementOrdered By: Olya Piña on 09-20-2024 ALT [Catalytic activity/Vol] 37 U/L High <35 [facility] Serum or plasma albumin cherelle urement (mass/volume)Ordered By: Olya Piña on 09-20-2024 Albumin [Mass/Vol] 3.0 g/dL Low 3.4-4.8 [facility] Serum or plasma albumin/glob ulin mass ratioOrdered By: Olya Piña on 09-20-2024 Albumin/Globulin [Mass ratio] 1.0 {ratio} 0.9-2.4 [facility] Serum or plasma alkaline piotr sphatase measurementOrdered By: Olya Piña on 09-20-2024 ALP [Catalytic activity/Vol] 159 U/L High 35-104 [facility] Serum or plasma calcium cherelle urement (mass/volume)Ordered By: Olya Piña on 09-20-2024 Calcium [Mass/Vol] 8.6 mg/dL 7.6-11.0 [facility] Serum or plasma urea nitroge n measurement (mass/volume)Ordered By: Olya Piña on 09-20-2024 Urea nitrogen [Mass/Vol] 17 mg/dL 4-19 [facility] Sodium levelOrdered By: Deisy Piña on 09-20-2024 Sodium [Moles/Vol] 135 mmol/L 133-145 [facility] Total proteinOrdered By: Em Piña on 09-20-2024 Protein [Mass/Vol] 6.0 g/dL 5.9-8.4 [facility] Triglycerideson 09-20-2024 Triglyceride [Mass/Vol] 52 mg/dL Normal [facility] Comment on above: Order Comment: 200 Result Comment: The drugs N-Acetylcysteine and Metamizole may falselydepress this assay.Normal range: <150 mg/dLBorderline High: 150-199 mg/dLHigh: 200-499 mg/dLVery High: >500 mg/dL Performed By: #### L 501.2300, L100.0500, L501.5000, L501.5200, L500.4050 ####[facility] [address] [place], [address] White blood cell (WBC) count Ordered By: Olya Piña on 09-20-2024 WBC (Bld) [#/Vol] 9.1 10*3/uL 4.4-11.0 [facility] Zinc, Plasma or Serumon 08-30 ZINC,PLASMA/SER 55 ug/dL Normal 44-115 [facility] Comment on above: Order Comment: Test( s) 420682-Gwla, Plasma or Serumwas developed and its performance characteristicsdetermined by [employer]. It has not been cleared or approvedby the Food and Drug Administration. Result Comment: Dete ction Limit = 5Performed at: [facility] [address] [id number] Director: Yogesh Carl PhD, Phone: [phone] at: [facility] [address] [id number] Director: Elvie Fry MD, Phone: [phone] Performed By: #### L 100.0500, L3300.9900, L501.5200, L501.5000, L501.2300, L500.4050, L501.6710, L3410.8370 ####[facility] [address] [place], [address] t-Transglutaminase IgAon tTG IGA <2 Normal 0-3 [facility] Comment on above: Order Comment: Test( s) [id number]-Bvih, Plasma or Serumwas developed and its performance characteristicsdetermined by [employer]. It has not been cleared or approvedby the Food and Drug Administration. Result Comment: Nega tive 0 - 3 Weak Positive 4 - 10 Positive >10 Tissue Transglutaminase (tTG) has been identified as the endomysial antigen. Studies have demonstr- ated that endomysial IgA antibodies have over 99% specificity for gluten sensitive enteropathy. Performed By: #### L 100.0500, L3300.9900, L501.5200, L501.5000, L501.2300, L500.4050, L501.6710, L3410.2920 ####[facility] [address] [place], [place], [phone] Anion gap in Serum or Plasma Ordered By: Olya Piña on 09-18-2024 Anion gap [Moles/Vol] 11 mmol/L 5-15 [facility] BUN/creatinine ratioOrdered By: Olya Piña on 09-18-2024 Urea nitrogen/Creatinine [Mass ratio] 38.3 mg/mg High 10-20 [facility] Bilirubin, totalOrdered By: Olya Piña on 09-18-2024 Bilirubin [Mass/Vol] 0.20 mg/dL 0.00-1.30 [facility] CBC-Complete Blood Cnt No Di ffon 09-18-2024 Erythrocyte distribution width (RBC) [Ratio] 19.3 % High 11.6-14.6 [facility] Comment on above: Order Comment: . Performed By: #### L 100.0500, L3300.9900, L501.5200, L501.5000, L501.2300, L500.4050, L501.6710, L3410.2920 ####[facility] [address] [place], [place], [phone] Hematocrit (Bld) [Volume fraction] 32.6 % Low 37-47 [facility] Comment on above: Order Comment: .1 Performed By: #### L 100.0500, L3300.9900, L501.5200, L501.5000, L501.2300, L500.4050, L501.6710, L3410.2920 ####[facility] [address] [place], [address] Hemoglobin (Bld) [Mass/Vol] 9.6 g/dL Low 12.0-15.0 [facility] Comment on above: Order Comment: . Performed By: #### L 100.0500, L3300.9900, L501.5200, L501.5000, L501.2300, L500.4050, L501.6710, L3410.2920 ####[facility] [address] [place], [address]) MCH (RBC) [Entitic mass] 24.4 pg Low 27.0-32.0 [facility] Comment on above: Order Comment: . Performed By: #### L 100.0500, L3300.9900, L501.5200, L501.5000, L501.2300, L500.4050, L501.6710, L3410.2920 ####[facility] [address] [place], [address]) MCHC (RBC) [Mass/Vol] 29.4 g/dL Low 32-36 [facility] Comment on above: Order Comment: . Performed By: #### L 100.0500, L3300.9900, L501.5200, L501.5000, L501.2300, L500.4050, L501.6710, L3410.2920 ####[facility] [address] [place], [address] MCV (RBC) [Entitic vol] 83.0 fL Normal 81-99 [facility] Comment on above: Order Comment: . Performed By: #### L 100.0500, L3300.9900, L501.5200, L501.5000, L501.2300, L500.4050, L501.6710, L3410.2920 ####[facility] [address] [place], [address](065) Platelet mean volume (Bld) [Entitic vol] 9.3 fL Normal 6.2-12.0 [facility] Comment on above: Order Comment: . Performed By: #### L 100.0500, L3300.9900, L501.5200, L501.5000, L501.2300, L500.4050, L501.6710, L3410.2920 ####[facility] [address] [place], [address] Platelets (Bld) [#/Vol] 450 10*3/uL Normal 150-450 [facility] Comment on above: Order Comment: . Performed By: #### L 100.0500, L3300.9900, L501.5200, L501.5000, L501.2300, L500.4050, L501.6710, L3410.2920 ####[facility] [address] [place], [address] RBC (Bld) [#/Vol] 3.93 10*6/uL Low 4.2-5.4 [facility] Comment on above: Order Comment: Performed By: #### L 100.0500, L3300.9900, L501.5200, L501.5000, L501.2300, L500.4050, L501.6710, L3410.2920 ####[facility] [address] [place], [address] RDW SD 55.8 fl High 35.1-43.9 [facility] Comment on above: Order Comment: Performed By: #### L 100.0500, L3300.9900, L501.5200, L501.5000, L501.2300, L500.4050, L501.6710, L3410.2920 ####[facility] [address] [place], [address] WBC (Bld) [#/Vol] 7.9 10*3/uL Normal 4.4-11.0 [facility] Comment on above: Order Comment: Performed By: #### L 100.0500, L3300.9900, L501.5200, L501.5000, L501.2300, L500.4050, L501.6710, L3410.2920 ####[facility] [address] [place], [address] CRPon 09-18-2024 C-REACTIVE PROT 68.60 mg/L High 0.0-3.0 [facility] Comment on above: Order Comment: . Performed By: #### L 100.0500, L3300.9900, L501.5200, L501.5000, L501.2300, L500.4050, L501.6710, L3410.2920 ####[facility] [address] [place], [place], [id number] Carbon dioxide, total [Moles /volume] in Central venous bloodOrdered By: Olya Piña on 09-18-2024 CO2 [Moles/Vol] 25.5 mmol/L 21.0-32.0 [facility] Chloride assayOrdered By: Moe Piña on 09-18-2024 Chloride [Moles/Vol] 102 mmol/L 98-108 [facility] Comprehensive Metabolic Prof ilon 09-18-2024 Albumin [Mass/Vol] 3.1 g/dL Low 3.4-4.8 [facility] Comment on above: Order Comment: . Performed By: #### L 100.0500, L3300.9900, L501.5200, L501.5000, L501.2300, L500.4050, L501.6710, L3410.2920 ####[facility] [address] [place], [address] Albumin/Globulin [Mass ratio] 1.0 {ratio} Normal 0.9-2.4 [facility] Comment on above: Order Comment: . Performed By: #### L 100.0500, L3300.9900, L501.5200, L501.5000, L501.2300, L500.4050, L501.6710, L3410.2920 ####[facility] [address] [place], [address] ALK PHOS 163 U/L High 35-104 [facility] Comment on above: Order Comment: . Performed By: #### L 100.0500, L3300.9900, L501.5200, L501.5000, L501.2300, L500.4050, L501.6710, L3410.2920 ####[facility] [address] [place], [place], [phone] ALT [Catalytic activity/Vol] 47 U/L High <=34 [facility] Comment on above: Order Comment: . Performed By: #### L 100.0500, L3300.9900, L501.5200, L501.5000, L501.2300, L500.4050, L501.6710, L3410.2920 ####[facility] [address] [place], [place], [phone] AST [Catalytic activity/Vol] 45 U/L High <=31 [facility] Comment on above: Order Comment: . Performed By: #### L 100.0500, L3300.9900, L501.5200, L501.5000, L501.2300, L500.4050, L501.6710, L3410.2920 ####[facility] [address] [place], [place], [id number] Bilirubin [Mass/Vol] 0.20 mg/dL Normal 0.00-1.30 [facility] Comment on above: Order Comment: . Performed By: #### L 100.0500, L3300.9900, L501.5200, L501.5000, L501.2300, L500.4050, L501.6710, L3410.2920 ####[facility] [address] [place], [address] BUN/CRE 38.3 RATIO High 10-20 [facility] Comment on above: Order Comment: .1 Performed By: #### L 100.0500, L3300.9900, L501.5200, L501.5000, L501.2300, L500.4050, L501.6710, L3410.2920 ####[facility] [address] [place], [address] Calcium [Mass/Vol] 8.8 mg/dL Normal 7.6-11.0 [facility] Comment on above: Order Comment: . Performed By: #### L 100.0500, L3300.9900, L501.5200, L501.5000, L501.2300, L500.4050, L501.6710, L3410.2920 ####[facility] [address] [place], [address] Chloride [Moles/Vol] 102 mmol/L Normal 98-108 [facility] Comment on above: Order Comment: . Performed By: #### L 100.0500, L3300.9900, L501.5200, L501.5000, L501.2300, L500.4050, L501.6710, L3410.2920 ####[facility] [address] [place], [address] CO2 [Moles/Vol] 25.5 mmol/L Normal 21.0-32.0 [facility] Comment on above: Order Comment: . Performed By: #### L 100.0500, L3300.9900, L501.5200, L501.5000, L501.2300, L500.4050, L501.6710, L3410.2920 ####[facility] [address] [place], [address] Creatinine [Mass/Vol] 0.41 mg/dL Low 0.70-1.20 [facility] Comment on above: Order Comment: . Performed By: #### L 100.0500, L3300.9900, L501.5200, L501.5000, L501.2300, L500.4050, L501.6710, L3410.2920 ####[facility] [facility] [address] [place], [address] GAP 11 Normal 5-15 [facility] Comment on above: Order Comment: . Performed By: #### L 100.0500, L3300.9900, L501.5200, L501.5000, L501.2300, L500.4050, L501.6710, L3410.2920 ####[facility] [address] [place], [address] GFR/1.73 sq M.predicted among non-blacks MDRD (S/P/Bld) [Vol rate/Area] 106 mL/min/{1.73_m2} Normal >60 [facility] Comment on above: Order Comment: . Result Comment: mL/m in/1.73m2 CKD-EPI Creatinine Equation (2020) Performed By: #### L 100.0500, L3300.9900, L501.5200, L501.5000, L501.2300, L500.4050, L501.6710, L3410.2920 ####[facility] [address] [place], [address] Globulin (S) [Mass/Vol] 3.0 g/dL Normal 2.2-4.2 [facility] Comment on above: Order Comment: . Performed By: #### L 100.0500, L3300.9900, L501.5200, L501.5000, L501.2300, L500.4050, L501.6710, L3410.2920 ####[facility] [address] [place], [address] Glucose [Mass/Vol] 106 mg/dL High 70-99 [facility] Comment on above: Order Comment: . Performed By: #### L 100.0500, L3300.9900, L501.5200, L501.5000, L501.2300, L500.4050, L501.6710, L3410.2920 ####[facility] [address] [place], [address] Potassium [Moles/Vol] 4.4 mmol/L Normal 3.3-5.1 [facility] Comment on above: Order Comment: . Performed By: #### L 100.0500, L3300.9900, L501.5200, L501.5000, L501.2300, L500.4050, L501.6710, L3410.2920 ####[facility] [address] [place], [address] Sodium [Moles/Vol] 138 mmol/L Normal 133-145 [facility] Comment on above: Order Comment: Performed By: #### L 100.0500, L3300.9900, L501.5200, L501.5000, L501.2300, L500.4050, L501.6710, L3410.2920 ####[facility] [address] [place], [address] T PROT 6.1 g/dL Normal 5.9-8.4 [facility] Comment on above: Order Comment: Performed By: #### L 100.0500, L3300.9900, L501.5200, L501.5000, L501.2300, L500.4050, L501.6710, L3410.2920 ####[facility] [address] [place], [address] Urea nitrogen [Mass/Vol] 16 mg/dL Normal 4-19 [facility] Comment on above: Order Comment: . Performed By: #### L 100.0500, L3300.9900, L501.5200, L501.5000, L501.2300, L500.4050, L501.6710, L3410.2920 ####[facility] [address] [place], [place], [id number] Erythrocyte distribution wid th ratioOrdered By: Olyaleslie Piña on 09-18-2024 Erythrocyte distribution width (RBC) [Ratio] 19.3 % High 11.6-14.6 [facility] Erythrocyte distribution wid th standard deviationOrdered By: Olyaleslie Piña on 09-18-2024 Erythrocyte distribution width (RBC) [Ratio] 55.8 fl High 35.1-43.9 [facility] Glomerular filtration rate ( GFR) estimation/1.73 sq m using serum, plasma, or whole bOrdered By: Olyaleslie Piña on 09-18-2024 GFR/1.73 sq M.predicted among non-blacks MDRD (S/P/Bld) [Vol rate/Area] 106 mL/min/{1.73_m2} >60 [facility] Hematocrit Auto (Bld) [Volum e fraction]Or[facility]: [facility] Hematocrit (Bld) [Volume fraction] 32.6 % Low 37-47 [facility] Hemoglobin measurementOrdere d By: Olyaleslie Piña on 09-18-2024 Hemoglobin (Bld) [Mass/Vol] 9.6 g/dL Low 12.0-15.0 [facility] MCV (mean corpuscular volume ) determinationOrdered By: Olyaleslie Piña on 09-18-2024 MCV (RBC) [Entitic vol] 83.0 fL 81-99 [facility] Magnesiumon 09-18-2024 Magnesium [Mass/Vol] 2.1 mg/dL Normal 1.5-2.2 [facility] Comment on above: Order Comment: 205.1 Performed By: #### L 100.0500, L3300.9900, L501.5200, L501.5000, L501.2300, L500.4050, L501.6710, L3410.2920 ####[facility] [address] [place], [place], [phone] Magnesium measurement (mass/ volume)Ordered By: Olyaleslie Piña on 09-18-2024 Magnesium (Unsp spec) [Mass/Vol] 2.1 mg/dL 1.5-2.2 [facility] Mean corpuscular hemoglobin (MCH) determinationOrdered By: Olya Piña on 09-18-2024 MCH (RBC) [Entitic mass] 24.4 pg Low 27.0-32.0 [facility] No Panel InformationOrdered By: Olya Piña on 09-18-2024 45 U/L High <32 [facility] Phosphoruson 09-18-2024 Phosphate [Mass/Vol] 3.4 mg/dL Normal 2.7-4.5 [facility] Comment on above: Order Comment: 205.1 Performed By: #### L 100.0500, L3300.9900, L501.5200, L501.5000, L501.2300, L500.4050, L501.6710, L3410.2920 ####[facility] [address] [place], [address] Platelet countOrdered By: Moe Piña on 09-18-2024 Platelets (Bld) [#/Vol] 450 10*3/uL 150-450 [facility] Potassium measurement (mass/ volume)Ordered By: Olya Piña on 09-18-2024 Potassium (Unsp spec) [Mass/Vol] 4.4 mmol/L 3.3-5.1 [facility] RBC Auto (Bld) [#/Vol]Ordere d By: Olya Piña on 09-18-2024 RBC (Bld) [#/Vol] 3.93 10*6/uL Low 4.2-5.4 [facility] Serum creatinine measurement (mass/volume)Ordered By: Olya Piña on 09-18-2024 Creatinine [Mass/Vol] 0.41 mg/dL Low 0.70-1.20 [facility] Serum globulin measurementOr dered By: Olya Piña on 09-18-2024 Globulin (S) [Mass/Vol] 3.0 g/dL 2.2-4.2 [facility] Serum glucose measurement (m ass/volume)Ordered By: Olya Piña on 04-21-2025 Glucose [Mass/Vol] 106 mg/dL High 70-99 [facility] Serum or plasma C reactive p rotein measurement (mass/volume)Ordered By: Olya Piña on 09-18-2024 CRP [Mass/Vol] 68.60 mg/L High 0.0-3.0 [facility] Serum or plasma alanine juarez otransferase (ALT) measurementOrdered By: Olya Piña on 09-18-2024 ALT [Catalytic activity/Vol] 47 U/L High <35 [facility] Serum or plasma albumin cherelle urement (mass/volume)Ordered By: Olya Piña on 09-18-2024 Albumin [Mass/Vol] 3.1 g/dL Low 3.4-4.8 [facility] Serum or plasma albumin/glob ulin mass ratioOrdered By: Olya Piña on 09-18-2024 Albumin/Globulin [Mass ratio] 1.0 {ratio} 0.9-2.4 [facility] Serum or plasma alkaline piotr sphatase measurementOrdered By: Olya Piña on 09-18-2024 ALP [Catalytic activity/Vol] 163 U/L High 35-104 [facility] Serum or plasma calcium cherelle urement (mass/volume)Ordered By: Olya Piña on 09-18-2024 Calcium [Mass/Vol] 8.8 mg/dL 7.6-11.0 [facility] Serum or plasma urea nitroge n measurement (mass/volume)Ordered By: Olya Piña on 09-18-2024 Urea nitrogen [Mass/Vol] 16 mg/dL 4-19 [facility] Serum or plasma zinc measure ment (mass/volume)Ordered By: Olya Piña on 09-18-2024 Zinc [Mass/Vol] 55 ug/dL 44-115 [facility] Serum tissue transglutaminas e (tTG) IgA antibody assay (units/volume)Ordered By: Olya Piña on 09-18-2024 tTG IgA Qn (S) <2 U/mL 0-3 [facility] Sodium levelOrdered By: Deisy Piña on 09-18-2024 Sodium [Moles/Vol] 138 mmol/L 133-145 [facility] Total proteinOrdered By: Em Piña on 09-18-2024 Protein [Mass/Vol] 6.1 g/dL 5.9-8.4 [facility] Triglycerideson 09-18-2024 Triglyceride [Mass/Vol] 69 mg/dL Normal [facility] Comment on above: Order Comment: 205.1 Result Comment: The drugs N-Acetylcysteine and Metamizole may falselydepress this assay.Normal range: <150 mg/dLBorderline High: 150-199 mg/dLHigh: 200-499 mg/dLVery High: >500 mg/dL Performed By: #### L 100.0500, L3300.9900, L501.5200, L501.5000, L501.2300, L500.4050, L501.6710, L3410.2920 ####[facility] [address] [place], [address] White blood cell (WBC) count Ordered By: Olya Piña on 09-18-2024 WBC (Bld) [#/Vol] 7.9 10*3/uL 4.4-11.0 [facility] Anion gap in Serum or Plasma Ordered By: Olya Piña on 09-15-2024 Anion gap [Moles/Vol] 11 mmol/L 5-15 [facility] BUN/creatinine ratioOrdered By: Olya Piña on 09-15-2024 Urea nitrogen/Creatinine [Mass ratio] 39.3 mg/mg High 10-20 [facility] Bilirubin, totalOrdered By: Olya Piña on 09-15-2024 Bilirubin [Mass/Vol] 0.21 mg/dL 0.00-1.30 [facility] Blood manual differential co mment interpretation (narrative result)Ordered By: Olya Piña on 09-15-2024 Manual differential comment Alexis (Bld) [Interp] SCANNED [facility] CBC-Complete Blood Cnt No Di ffon 09-15-2024 Erythrocyte distribution width (RBC) [Ratio] 20.3 % High 11.6-14.6 [facility] Comment on above: Order Comment: 205 Performed By: #### L 501.5000, L501.2300, L500.4050, L100.0500, L100.4500, L501.5200 ####[facility] [address] [place], [address] Hematocrit (Bld) [Volume fraction] 33.5 % Low 37-47 [facility] Comment on above: Order Comment: 205 Performed By: #### L 501.5000, L501.2300, L500.4050, L100.0500, L100.4500, L501.5200 ####[facility] [address] [place], [address] Hemoglobin (Bld) [Mass/Vol] 10.0 g/dL Low 12.0-15.0 [facility] Comment on above: Order Comment: 205 Performed By: #### L 501.5000, L501.2300, L500.4050, L100.0500, L100.4500, L501.5200 ####[facility] [address] [place], [address] MCH (RBC) [Entitic mass] 24.4 pg Low 27.0-32.0 [facility] Comment on above: Order Comment: 205 Performed By: #### L 501.5000, L501.2300, L500.4050, L100.0500, L100.4500, L501.5200 ####[facility] [address] [place], [address] MCHC (RBC) [Mass/Vol] 29.9 g/dL Low 32-36 [facility] Comment on above: Order Comment: 205 Performed By: #### L 501.5000, L501.2300, L500.4050, L100.0500, L100.4500, L501.5200 ####[facility] [address] [place], [address] MCV (RBC) [Entitic vol] 81.7 fL Normal 81-99 [facility] Comment on above: Order Comment: 205 Performed By: #### L 501.5000, L501.2300, L500.4050, L100.0500, L100.4500, L501.5200 ####[facility] [address] [place], [address] Platelet mean volume (Bld) [Entitic vol] 9.1 fL Normal 6.2-12.0 [facility] Comment on above: Order Comment: 205 Performed By: #### L 501.5000, L501.2300, L500.4050, L100.0500, L100.4500, L501.5200 ####[facility] [address] [place], [address] Platelets (Bld) [#/Vol] 489 10*3/uL High 150-450 [facility] Comment on above: Order Comment: 205 Performed By: #### L 501.5000, L501.2300, L500.4050, L100.0500, L100.4500, L501.5200 ####[facility] [address] [place], [address] RBC (Bld) [#/Vol] 4.10 10*6/uL Low 4.2-5.4 [facility] Comment on above: Order Comment: 205 Performed By: #### L 501.5000, L501.2300, L500.4050, L100.0500, L100.4500, L501.5200 ####[facility] [address] [place], [address] RDW SD 60.5 fl High 35.1-43.9 [facility] Comment on above: Order Comment: 205 Performed By: #### L 501.5000, L501.2300, L500.4050, L100.0500, L100.4500, L501.5200 ####[facility] [address] [place], [place], [id number] WBC (Bld) [#/Vol] 7.8 10*3/uL Normal 4.4-11.0 [facility] Comment on above: Order Comment: Performed By: #### L 501.5000, L501.2300, L500.4050, L100.0500, L100.4500, L501.5200 ####[facility] [address] [place], [place], [phone] Carbon dioxide, total [Moles /volume] in Central venous bloodOrdered By: Olya Piña on 09-15-2024 CO2 [Moles/Vol] 26.2 mmol/L 21.0-32.0 [facility] Chloride assayOrdered By: Moe Piña on 09-15-2024 Chloride [Moles/Vol] 101 mmol/L 98-108 [facility] Comprehensive Metabolic Prof ilon 09-15-2024 Glucose [Mass/Vol] 41 mg/dL Invalid Interpretation Code 70-99 [facility] Comment on above: Order Comment: Result Comment: Crit ical Result(s) Called at: by:??Results read back bysame.Critical Result(s) Called to Lyla Lo:??Results read back by same. AMENDED REPORT 09/15/24 0816 GLU previously reported as: 41 *L mg/dLCritical Result(s) Called at: by:??Results read back bysame. Performed By: #### L 501.5000, L501.2300, L500.4050, L100.0500, L100.4500, L501.5200 ####[facility] [address] [place], [place], [phone] Differential Commenton 09-15 SMEAR COMMENT SCANNED Normal [facility] Comment on above: Order Comment: Result Comment: 2+ A NISOCYTOSIS Performed By: #### L 501.5000, L501.2300, L500.4050, L100.0500, L100.4500, L501.5200 ####[facility] [address] [place], [place], [phone] Erythrocyte distribution wid th ratioOrdered By: Olya Piña on 09-15-2024 Erythrocyte distribution width (RBC) [Ratio] 20.3 % High 11.6-14.6 [facility] Erythrocyte distribution wid th standard deviationOrdered By: Olya Piña on 09-15-2024 Erythrocyte distribution width (RBC) [Ratio] 60.5 fl High 35.1-43.9 [facility] Glomerular filtration rate ( GFR) estimation/1.73 sq m using serum, plasma, or whole bOrdered By: Olya Piña on 09-15-2024 GFR/1.73 sq M.predicted among non-blacks MDRD (S/P/Bld) [Vol rate/Area] 106 mL/min/{1.73_m2} >60 [facility] Hematocrit Auto (Bld) [Volum e fraction]Ordered By: Olya Piña on 09-15-2024 Hematocrit (Bld) [Volume fraction] 33.5 % Low 37-47 [facility] Hemoglobin measurementOrdere d By: Olyaleslie Piña on 09-15-2024 Hemoglobin (Bld) [Mass/Vol] 10.0 g/dL Low 12.0-15.0 [facility] MCV (mean corpuscular volume ) determinationOrdered By: Olya Piña on 09-15-2024 MCV (RBC) [Entitic vol] 81.7 fL 81-99 [facility] Magnesiumon 09-15-2024 Magnesium [Mass/Vol] 2.1 mg/dL Normal 1.5-2.2 [facility] Comment on above: Order Comment: 205 Performed By: #### L 501.5000, L501.2300, L500.4050, L100.0500, L100.4500, L501.5200 ####[facility] [address] [place], [place], [phone] Magnesium measurement (mass/ volume)Ordered By: Olya Piña on 09-15-2024 Magnesium (Unsp spec) [Mass/Vol] 2.1 mg/dL 1.5-2.2 [facility] Mean corpuscular hemoglobin (MCH) determinationOrdered By: Olya Piña on 09-15-2024 MCH (RBC) [Entitic mass] 24.4 pg Low 27.0-32.0 [facility] No Panel InformationOrdered By: Olya Piña on 09-15-2024 37 U/L High <32 [facility] Phosphoruson 09-15-2024 Phosphate [Mass/Vol] 3.0 mg/dL Normal 2.7-4.5 [facility] Comment on above: Order Comment: 205 Performed By: #### L 501.5000, L501.2300, L500.4050, L100.0500, L100.4500, L501.5200 ####[facility] [address] [place], [address] Platelet countOrdered By: Moe Piña on 09-15-2024 Platelets (Bld) [#/Vol] 489 10*3/uL High 150-450 [facility] Potassium measurement (mass/ volume)Ordered By: Olya Piña on 09-15-2024 Potassium (Unsp spec) [Mass/Vol] 4.0 mmol/L 3.3-5.1 [facility] RBC Auto (Bld) [#/Vol]Ordere d By: Olya Piña on 09-15-2024 RBC (Bld) [#/Vol] 4.10 10*6/uL Low 4.2-5.4 [facility] Serum creatinine measurement (mass/volume)Ordered By: Olya Piña on 09-15-2024 Creatinine [Mass/Vol] 0.41 mg/dL Low 0.70-1.20 [facility] Serum globulin measurementOr dered By: Olya Piña on 09-15-2024 Globulin (S) [Mass/Vol] 3.1 g/dL 2.2-4.2 [facility] Serum glucose measurement (m ass/volume)Ordered By: Olya Piña on 09-15-2024 Glucose [Mass/Vol] 41 mg/dL Low 70-99 [facility] Serum or plasma alanine juarez otransferase (ALT) measurementOrdered By: Olya Piña on 09-15-2024 ALT [Catalytic activity/Vol] 38 U/L High <35 [facility] Serum or plasma albumin cherelle urement (mass/volume)Ordered By: Olya Piña on 09-15-2024 Albumin [Mass/Vol] 3.2 g/dL Low 3.4-4.8 [facility] Serum or plasma albumin/glob ulin mass ratioOrdered By: Olay Piña on 09-15-2024 Albumin/Globulin [Mass ratio] 1.0 {ratio} 0.9-2.4 [facility] Serum or plasma alkaline piotr sphatase measurementOrdered By: Olya Piña on 09-15-2024 ALP [Catalytic activity/Vol] 165 U/L High 35-104 [facility] Serum or plasma calcium cherelle urement (mass/volume)Ordered By: Olya Piña on 09-15-2024 Calcium [Mass/Vol] 8.8 mg/dL 7.6-11.0 [facility] Serum or plasma urea nitroge n measurement (mass/volume)Ordered By: Olya Piña on 09-15-2024 Urea nitrogen [Mass/Vol] 16 mg/dL 4-19 [facility] Sodium levelOrdered By: Deisy Piña on 09-15-2024 Sodium [Moles/Vol] 137 mmol/L 133-145 [facility] Total proteinOrdered By: Em Piña on 09-15-2024 Protein [Mass/Vol] 6.3 g/dL 5.9-8.4 [facility] Triglycerideson 09-15-2024 Triglyceride [Mass/Vol] 64 mg/dL Normal [facility] Comment on above: Order Comment: 205 Result Comment: The drugs N-Acetylcysteine and Metamizole may falselydepress this assay.Normal range: <150 mg/dLBorderline High: 150-199 mg/dLHigh: 200-499 mg/dLVery High: >500 mg/dL Performed By: #### L 501.5000, L501.2300, L500.4050, L100.0500, L100.4500, L501.5200 ####[facility] [address] [place], [place], [phone] White blood cell (WBC) count Ordered By: Olya Piña on 09-15-2024 WBC (Bld) [#/Vol] 7.8 10*3/uL 4.4-11.0 [facility] Zinc, Plasma or Serumon 08-29 ZINC,PLASMA/SER 53 ug/dL Normal 44-115 [facility] Comment on above: Order Comment: Test( s) 259256-Lgvi, Plasma or Serumwas developed and its performance characteristicsdetermined by [employer]. It has not been cleared or approvedby the Food and Drug Administration. Result Comment: Dete ction Limit = 5Performed at: [facility] [address] [id number] Director: Elvie Fry MD, Phone: [phone] Performed By: #### L 501.5000, L100.4500, L100.0500, L3300.9900, L501.2300, L500.4050, L501.5200, L501.6710 ####[facility] [address] [place], [place], [phone] Anion gap in Serum or Plasma Ordered By: Olya Piña on 09-13-2024 Anion gap [Moles/Vol] 10 mmol/L 5-15 [facility] BUN/creatinine ratioOrdered By: Olya Piña on 09-13-2024 Urea nitrogen/Creatinine [Mass ratio] 40.8 mg/mg High 10-20 [facility] Bilirubin, totalOrdered By: Olya Piña on 09-13-2024 Bilirubin [Mass/Vol] 0.18 mg/dL 0.00-1.30 [facility] Blood manual differential co mment interpretation (narrative result)Ordered By: Olya Piña on 09-13-2024 Manual differential comment Alexis (Bld) [Interp] COMMENT [facility] CBC-Complete Blood Cnt No Di ffon 09-13-2024 Erythrocyte distribution width (RBC) [Ratio] 21.2 % High 11.6-14.6 [facility] Comment on above: Order Comment: Performed By: #### L 501.5200, L501.5000, L100.0500, L100.4500, L501.2300, L500.4050 ####[facility] [address] [place], [address] Hematocrit (Bld) [Volume fraction] 32.2 % Low 37-47 [facility] Comment on above: Order Comment: Performed By: #### L 501.5200, L501.5000, L100.0500, L100.4500, L501.2300, L500.4050 ####[facility] [address] [place], [address] Hemoglobin (Bld) [Mass/Vol] 9.6 g/dL Low 12.0-15.0 [facility] Comment on above: Order Comment: Performed By: #### L 501.5200, L501.5000, L100.0500, L100.4500, L501.2300, L500.4050 ####[facility] [address] [place], [address] MCH (RBC) [Entitic mass] 24.7 pg Low 27.0-32.0 [facility] Comment on above: Order Comment: Performed By: #### L 501.5200, L501.5000, L100.0500, L100.4500, L501.2300, L500.4050 ####[facility] [address] [place], [address] MCHC (RBC) [Mass/Vol] 29.8 g/dL Low 32-36 [facility] Comment on above: Order Comment: Performed By: #### L 501.5200, L501.5000, L100.0500, L100.4500, L501.2300, L500.4050 ####[facility] [address] [place], [address] MCV (RBC) [Entitic vol] 83.0 fL Normal 81-99 [facility] Comment on above: Order Comment: - Performed By: #### L 501.5200, L501.5000, L100.0500, L100.4500, L501.2300, L500.4050 ####[facility] [address] [place], [address] Platelet mean volume (Bld) [Entitic vol] 9.2 fL Normal 6.2-12.0 [facility] Comment on above: Order Comment: Performed By: #### L 501.5200, L501.5000, L100.0500, L100.4500, L501.2300, L500.4050 ####[facility] [address] [place], [address] Platelets (Bld) [#/Vol] 421 10*3/uL Normal 150-450 [facility] Comment on above: Order Comment: Performed By: #### L 501.5200, L501.5000, L100.0500, L100.4500, L501.2300, L500.4050 ####[facility] [address] [place], [address] RBC (Bld) [#/Vol] 3.88 10*6/uL Low 4.2-5.4 [facility] Comment on above: Order Comment: Performed By: #### L 501.5200, L501.5000, L100.0500, L100.4500, L501.2300, L500.4050 ####[facility] [address] [place], [address] RDW SD 64.3 fl High 35.1-43.9 [facility] Comment on above: Order Comment: - Performed By: #### L 501.5200, L501.5000, L100.0500, L100.4500, L501.2300, L500.4050 ####[facility] [address] [place], [address] WBC (Bld) [#/Vol] 6.7 10*3/uL Normal 4.4-11.0 [facility] Comment on above: Order Comment: Performed By: #### L 501.5200, L501.5000, L100.0500, L100.4500, L501.2300, L500.4050 ####[facility] [address] [place], [address] Carbon dioxide, total [Moles /volume] in Central venous bloodOrdered By: Olya Piña on 09-13-2024 CO2 [Moles/Vol] 25.7 mmol/L 21.0-32.0 [facility] Chloride assayOrdered By: Moe Piña on 09-13-2024 Chloride [Moles/Vol] 101 mmol/L 98-108 [facility] Comprehensive Metabolic Prof ilon 09-13-2024 Albumin [Mass/Vol] 3.1 g/dL Low 3.4-4.8 [facility] Comment on above: Order Comment: Performed By: #### L 501.5200, L501.5000, L100.0500, L100.4500, L501.2300, L500.4050 ####[facility] [address] [place], [address] Albumin/Globulin [Mass ratio] 1.0 {ratio} Normal 0.9-2.4 [facility] Comment on above: Order Comment: Performed By: #### L 501.5200, L501.5000, L100.0500, L100.4500, L501.2300, L500.4050 ####[facility] [address] [place], [address] ALK PHOS 159 U/L High 35-104 [facility] Comment on above: Order Comment: Performed By: #### L 501.5200, L501.5000, L100.0500, L100.4500, L501.2300, L500.4050 ####[facility] [address] [place], [address] ALT [Catalytic activity/Vol] 34 U/L Normal <=34 [facility] Comment on above: Order Comment: Performed By: #### L 501.5200, L501.5000, L100.0500, L100.4500, L501.2300, L500.4050 ####[facility] [address] [place], [address] AST [Catalytic activity/Vol] 36 U/L High <=31 [facility] Comment on above: Order Comment: Performed By: #### L 501.5200, L501.5000, L100.0500, L100.4500, L501.2300, L500.4050 ####[facility] [address] [place], [address] Bilirubin [Mass/Vol] 0.18 mg/dL Normal 0.00-1.30 [facility] Comment on above: Order Comment: Performed By: #### L 501.5200, L501.5000, L100.0500, L100.4500, L501.2300, L500.4050 ####[facility] [address] [place], [address] BUN/CRE 40.8 RATIO High 10-20 [facility] Comment on above: Order Comment: Performed By: #### L 501.5200, L501.5000, L100.0500, L100.4500, L501.2300, L500.4050 ####[facility] [address] [place], [address] Calcium [Mass/Vol] 8.7 mg/dL Normal 7.6-11.0 [facility] Comment on above: Order Comment: Performed By: #### L 501.5200, L501.5000, L100.0500, L100.4500, L501.2300, L500.4050 ####[facility] [address] [place], [address] Chloride [Moles/Vol] 101 mmol/L Normal 98-108 [facility] Comment on above: Order Comment: Performed By: #### L 501.5200, L501.5000, L100.0500, L100.4500, L501.2300, L500.4050 ####[facility] [address] [place], [address] CO2 [Moles/Vol] 25.7 mmol/L Normal 21.0-32.0 [facility] Comment on above: Order Comment: Performed By: #### L 501.5200, L501.5000, L100.0500, L100.4500, L501.2300, L500.4050 ####[facility] [address] [place], [address] Creatinine [Mass/Vol] 0.41 mg/dL Low 0.70-1.20 [facility] Comment on above: Order Comment: Performed By: #### L 501.5200, L501.5000, L100.0500, L100.4500, L501.2300, L500.4050 ####[facility] [address] [place], [address] GAP 10 Normal 5-15 [facility] Comment on above: Order Comment: Performed By: #### L 501.5200, L501.5000, L100.0500, L100.4500, L501.2300, L500.4050 ####[facility] [address] [place], [address] GFR/1.73 sq M.predicted among non-blacks MDRD (S/P/Bld) [Vol rate/Area] 106 mL/min/{1.73_m2} Normal >60 [facility] Comment on above: Order Comment: Result Comment: mL/m in/1.73m2 CKD-EPI Creatinine Equation (2020) Performed By: #### L 501.5200, L501.5000, L100.0500, L100.4500, L501.2300, L500.4050 ####[facility] [address] [place], [address] Globulin (S) [Mass/Vol] 3.0 g/dL Normal 2.2-4.2 [facility] Comment on above: Order Comment: Performed By: #### L 501.5200, L501.5000, L100.0500, L100.4500, L501.2300, L500.4050 ####[facility] [address] [place], [address] Glucose [Mass/Vol] 104 mg/dL High 70-99 [facility] Comment on above: Order Comment: Performed By: #### L 501.5200, L501.5000, L100.0500, L100.4500, L501.2300, L500.4050 ####[facility] [address] [place], [address] Potassium [Moles/Vol] 4.3 mmol/L Normal 3.3-5.1 [facility] Comment on above: Order Comment: Performed By: #### L 501.5200, L501.5000, L100.0500, L100.4500, L501.2300, L500.4050 ####[facility] [address] [place], [address] Sodium [Moles/Vol] 137 mmol/L Normal 133-145 [facility] Comment on above: Order Comment: Performed By: #### L 501.5200, L501.5000, L100.0500, L100.4500, L501.2300, L500.4050 ####[facility] [address] [place], [address] T PROT 6.1 g/dL Normal 5.9-8.4 [facility] Comment on above: Order Comment: Performed By: #### L 501.5200, L501.5000, L100.0500, L100.4500, L501.2300, L500.4050 ####[facility] [address] [place], [address] Urea nitrogen [Mass/Vol] 17 mg/dL Normal 4-19 [facility] Comment on above: Order Comment: Performed By: #### L 501.5200, L501.5000, L100.0500, L100.4500, L501.2300, L500.4050 ####[facility] [address] [place], [address] Differential Commenton 09-13 SMEAR COMMENT COMMENT Normal [facility] Comment on above: Order Comment: Result Comment: 1+ A NISO. Performed By: #### L 501.5200, L501.5000, L100.0500, L100.4500, L501.2300, L500.4050 ####[facility] [address] [place], [address] Erythrocyte distribution wid th ratioOrdered By: Olya Piña on 09-13-2024 Erythrocyte distribution width (RBC) [Ratio] 21.2 % High 11.6-14.6 [facility] Erythrocyte distribution wid th standard deviationOrdered By: Olya Piña on 09-13-2024 Erythrocyte distribution width (RBC) [Ratio] 64.3 fl High 35.1-43.9 [facility] Glomerular filtration rate ( GFR) estimation/1.73 sq m using serum, plasma, or whole bOrdered By: Olya Piña on 09-13-2024 GFR/1.73 sq M.predicted among non-blacks MDRD (S/P/Bld) [Vol rate/Area] 106 mL/min/{1.73_m2} >60 [facility] Hematocrit Auto (Bld) [Volum e fraction]Ordered By: Olya Piña on 09-13-2024 Hematocrit (Bld) [Volume fraction] 32.2 % Low 37-47 [facility] Hemoglobin measurementOrdere d By: Olya Piña on 09-13-2024 Hemoglobin (Bld) [Mass/Vol] 9.6 g/dL Low 12.0-15.0 [facility] MCV (mean corpuscular volume ) determinationOrdered By: Olya Piña on 09-13-2024 MCV (RBC) [Entitic vol] 83.0 fL 81-99 [facility] Magnesiumon 09-13-2024 Magnesium [Mass/Vol] 2.1 mg/dL Normal 1.5-2.2 [facility] Comment on above: Order Comment: Performed By: #### L 501.5200, L501.5000, L100.0500, L100.4500, L501.2300, L500.4050 ####[facility] [address] [place], [address] Magnesium measurement (mass/ volume)Ordered By: Olya Piña on 09-13-2024 Magnesium (Unsp spec) [Mass/Vol] 2.1 mg/dL 1.5-2.2 [facility] Mean corpuscular hemoglobin (MCH) determinationOrdered By: Olya Piña on 09-13-2024 MCH (RBC) [Entitic mass] 24.7 pg Low 27.0-32.0 [facility] No Panel InformationOrdered By: Olya Piña on 09-13-2024 36 U/L High <32 [facility] Phosphoruson 09-13-2024 Phosphate [Mass/Vol] 3.7 mg/dL Normal 2.7-4.5 [facility] Comment on above: Order Comment: Performed By: #### L 501.5200, L501.5000, L100.0500, L100.4500, L501.2300, L500.4050 ####[facility] [address] [place], [address] Platelet countOrdered By: Moe Piña on 09-13-2024 Platelets (Bld) [#/Vol] 421 10*3/uL 150-450 [facility] Potassium measurement (mass/ volume)Ordered By: Olya Piña on 09-13-2024 Potassium (Unsp spec) [Mass/Vol] 4.3 mmol/L 3.3-5.1 [facility] RBC Auto (Bld) [#/Vol]Ordere d By: Olya Piña on 09-13-2024 RBC (Bld) [#/Vol] 3.88 10*6/uL Low 4.2-5.4 [facility] Serum creatinine measurement (mass/volume)Ordered By: Olya Piña on 09-13-2024 Creatinine [Mass/Vol] 0.41 mg/dL Low 0.70-1.20 [facility] Serum globulin measurementOr dered By: Olya Piña on 09-13-2024 Globulin (S) [Mass/Vol] 3.0 g/dL 2.2-4.2 [facility] Serum glucose measurement (m ass/volume)Ordered By: Olya Piña on 09-13-2024 Glucose [Mass/Vol] 104 mg/dL High 70-99 [facility] Serum or plasma alanine juarez otransferase (ALT) measurementOrdered By: Olya Piña on 09-13-2024 ALT [Catalytic activity/Vol] 34 U/L <35 [facility] Serum or plasma albumin cherelle urement (mass/volume)Ordered By: Olya Piña on 09-13-2024 Albumin [Mass/Vol] 3.1 g/dL Low 3.4-4.8 [facility] Serum or plasma albumin/glob ulin mass ratioOrdered By: Olya Piña on 09-13-2024 Albumin/Globulin [Mass ratio] 1.0 {ratio} 0.9-2.4 [facility] Serum or plasma alkaline piotr sphatase measurementOrdered By: Olya Piña on 09-13-2024 ALP [Catalytic activity/Vol] 159 U/L High 35-104 [facility] Serum or plasma calcium cherelle urement (mass/volume)Ordered By: Olya Piña on 09-13-2024 Calcium [Mass/Vol] 8.7 mg/dL 7.6-11.0 [facility] Serum or plasma urea nitroge n measurement (mass/volume)Ordered By: Olya Piña on 09-13-2024 Urea nitrogen [Mass/Vol] 17 mg/dL 4-19 [facility] Sodium levelOrdered By: Deisy Piña on 09-13-2024 Sodium [Moles/Vol] 137 mmol/L 133-145 [facility] Total proteinOrdered By: Em Piña on 09-13-2024 Protein [Mass/Vol] 6.1 g/dL 5.9-8.4 [facility] Triglycerideson 09-13-2024 Triglyceride [Mass/Vol] 68 mg/dL Normal [facility] Comment on above: Order Comment: Result Comment: The drugs N-Acetylcysteine and Metamizole may falselydepress this assay.Normal range: <150 mg/dLBorderline High: 150-199 mg/dLHigh: 200-499 mg/dLVery High: >500 mg/dL Performed By: #### L 501.5200, L501.5000, L100.0500, L100.4500, L501.2300, L500.4050 ####[facility] [address] [place], [place], [phone] White blood cell (WBC) count Ordered By: Olya Piña on 09-13-2024 WBC (Bld) [#/Vol] 6.7 10*3/uL 4.4-11.0 [facility] Anion gap in Serum or Plasma Ordered By: Olya Piña on 09-11-2024 Anion gap [Moles/Vol] 10 mmol/L 5-15 [facility] BUN/creatinine ratioOrdered By: Olya Piña on 09-11-2024 Urea nitrogen/Creatinine [Mass ratio] 58.0 mg/mg High 10-20 [facility] Bilirubin, totalOrdered By: Olyaleslie Piña on 09-11-2024 Bilirubin [Mass/Vol] 0.20 mg/dL 0.00-1.30 [facility] Blood manual differential co mment interpretation (narrative result)Ordered By: Olya Piña on 09-11-2024 Manual differential comment Alexis (Bld) [Interp] SCANNED [facility] CBC-Complete Blood Cnt No Di ffon 09-11-2024 Erythrocyte distribution width (RBC) [Ratio] 22.1 % High 11.6-14.6 [facility] Comment on above: Performed By: #### L 501.5000, L100.4500, L100.0500, L3300.9900, L501.2300, L500.4050, L501.5200, L501.6710 ####[facility] [address] [place], [place], [phone] Hematocrit (Bld) [Volume fraction] 33.3 % Low 37-47 [facility] Comment on above: Performed By: #### L 501.5000, L100.4500, L100.0500, L3300.9900, L501.2300, L500.4050, L501.5200, L501.6710 ####[facility] [address] [place], [address] Hemoglobin (Bld) [Mass/Vol] 9.9 g/dL Low 12.0-15.0 [facility] Comment on above: Performed By: #### L 501.5000, L100.4500, L100.0500, L3300.9900, L501.2300, L500.4050, L501.5200, L501.6710 ####[facility] [address] [place], [address] MCH (RBC) [Entitic mass] 24.6 pg Low 27.0-32.0 [facility] Comment on above: Performed By: #### L 501.5000, L100.4500, L100.0500, L3300.9900, L501.2300, L500.4050, L501.5200, L501.6710 ####[facility] [address] [place], [address] MCHC (RBC) [Mass/Vol] 29.7 g/dL Low 32-36 [facility] Comment on above: Performed By: #### L 501.5000, L100.4500, L100.0500, L3300.9900, L501.2300, L500.4050, L501.5200, L501.6710 ####[facility] [address] [place], [address] MCV (RBC) [Entitic vol] 82.6 fL Normal 81-99 [facility] Comment on above: Performed By: #### L 501.5000, L100.4500, L100.0500, L3300.9900, L501.2300, L500.4050, L501.5200, L501.6710 ####[facility] [address] [place], [address] Platelet mean volume (Bld) [Entitic vol] 9.2 fL Normal 6.2-12.0 [facility] Comment on above: Performed By: #### L 501.5000, L100.4500, L100.0500, L3300.9900, L501.2300, L500.4050, L501.5200, L501.6710 ####[facility] [address] [place], [address] Platelets (Bld) [#/Vol] 456 10*3/uL High 150-450 [facility] Comment on above: Performed By: #### L 501.5000, L100.4500, L100.0500, L3300.9900, L501.2300, L500.4050, L501.5200, L501.6710 ####[facility] [address] [place], [address] RBC (Bld) [#/Vol] 4.03 10*6/uL Low 4.2-5.4 [facility] Comment on above: Performed By: #### L 501.5000, L100.4500, L100.0500, L3300.9900, L501.2300, L500.4050, L501.5200, L501.6710 ####[facility] [address] [place], [address] RDW SD 66.0 fl High 35.1-43.9 [facility] Comment on above: Performed By: #### L 501.5000, L100.4500, L100.0500, L3300.9900, L501.2300, L500.4050, L501.5200, L501.6710 ####[facility] [address] [place], [address] WBC (Bld) [#/Vol] 5.4 10*3/uL Normal 4.4-11.0 [facility] Comment on above: Performed By: #### L 501.5000, L100.4500, L100.0500, L3300.9900, L501.2300, L500.4050, L501.5200, L501.6710 ####[facility] [address] [place], [address] CRPon 09-11-2024 C-REACTIVE PROT 35.10 mg/L High 0.0-3.0 [facility] Comment on above: Performed By: #### L 501.5000, L100.4500, L100.0500, L3300.9900, L501.2300, L500.4050, L501.5200, L501.6710 ####[facility] [address] [place], [address] Carbon dioxide, total [Moles /volume] in Central venous bloodOrdered By: Olya Piña on 09-11-2024 CO2 [Moles/Vol] 26.3 mmol/L 21.0-32.0 [facility] Chloride assayOrdered By: Moe Piña on 09-11-2024 Chloride [Moles/Vol] 100 mmol/L 98-108 [facility] Comprehensive Metabolic Prof ilon 09-11-2024 Albumin [Mass/Vol] 3.3 g/dL Low 3.4-4.8 [facility] Comment on above: Performed By: #### L 501.5000, L100.4500, L100.0500, L3300.9900, L501.2300, L500.4050, L501.5200, L501.6710 ####[facility] [address] [place], [place], [id number] Albumin/Globulin [Mass ratio] 1.1 {ratio} Normal 0.9-2.4 [facility] Comment on above: Performed By: #### L 501.5000, L100.4500, L100.0500, L3300.9900, L501.2300, L500.4050, L501.5200, L501.6710 ####[facility] [address] [place], [place], [id number] ALK PHOS 164 U/L High 35-104 [facility] Comment on above: Performed By: #### L 501.5000, L100.4500, L100.0500, L3300.9900, L501.2300, L500.4050, L501.5200, L501.6710 ####[facility] [address] [place], [address] ALT [Catalytic activity/Vol] 35 U/L Normal <=34 [facility] Comment on above: Performed By: #### L 501.5000, L100.4500, L100.0500, L3300.9900, L501.2300, L500.4050, L501.5200, L501.6710 ####[facility] [address] [place], [address] AST [Catalytic activity/Vol] 36 U/L High <=31 [facility] Comment on above: Performed By: #### L 501.5000, L100.4500, L100.0500, L3300.9900, L501.2300, L500.4050, L501.5200, L501.6710 ####[facility] [address] [place], [address] Bilirubin [Mass/Vol] 0.20 mg/dL Normal 0.00-1.30 [facility] Comment on above: Performed By: #### L 501.5000, L100.4500, L100.0500, L3300.9900, L501.2300, L500.4050, L501.5200, L501.6710 ####[facility] [address] [place], [address] BUN/CRE 58.0 RATIO High 10-20 [facility] Comment on above: Performed By: #### L 501.5000, L100.4500, L100.0500, L3300.9900, L501.2300, L500.4050, L501.5200, L501.6710 ####[facility] [address] [place], [address] Calcium [Mass/Vol] 9.0 mg/dL Normal 7.6-11.0 [facility] Comment on above: Performed By: #### L 501.5000, L100.4500, L100.0500, L3300.9900, L501.2300, L500.4050, L501.5200, L501.6710 ####[facility] [address] [place], [address] Chloride [Moles/Vol] 100 mmol/L Normal 98-108 [facility] Comment on above: Performed By: #### L 501.5000, L100.4500, L100.0500, L3300.9900, L501.2300, L500.4050, L501.5200, L501.6710 ####[facility] [address] [place], [place], [phone]) CO2 [Moles/Vol] 26.3 mmol/L Normal 21.0-32.0 [facility] Comment on above: Performed By: #### L 501.5000, L100.4500, L100.0500, L3300.9900, L501.2300, L500.4050, L501.5200, L501.6710 ####[facility] [address] [place], [place], [phone] Creatinine [Mass/Vol] 0.39 mg/dL Low 0.70-1.20 [facility] Comment on above: Performed By: #### L 501.5000, L100.4500, L100.0500, L3300.9900, L501.2300, L500.4050, L501.5200, L501.6710 ####[facility] [address] [place], [place], [phone]) GAP 10 Normal 5-15 [facility] Comment on above: Performed By: #### L 501.5000, L100.4500, L100.0500, L3300.9900, L501.2300, L500.4050, L501.5200, L501.6710 ####[facility] [address] [place], [place], [phone]) GFR/1.73 sq M.predicted among non-blacks MDRD (S/P/Bld) [Vol rate/Area] 108 mL/min/{1.73_m2} Normal >60 [facility] Comment on above: Result Comment: mL/m in/1.73m2 CKD-EPI Creatinine Equation (2020) Performed By: #### L 501.5000, L100.4500, L100.0500, L3300.9900, L501.2300, L500.4050, L501.5200, L501.6710 ####[facility] [address] [place], [address] Globulin (S) [Mass/Vol] 3.0 g/dL Normal 2.2-4.2 [facility] Comment on above: Performed By: #### L 501.5000, L100.4500, L100.0500, L3300.9900, L501.2300, L500.4050, L501.5200, L501.6710 ####[facility] [address] [place], [address] Glucose [Mass/Vol] 34 mg/dL Invalid Interpretation Code 70-99 [facility] Comment on above: Result Comment: corry mohr called to rell lopez 1042 by tphillips Performed By: #### L 501.5000, L100.4500, L100.0500, L3300.9900, L501.2300, L500.4050, L501.5200, L501.6710 ####[facility] [address] [place], [address] Potassium [Moles/Vol] 4.4 mmol/L Normal 3.3-5.1 [facility] Comment on above: Performed By: #### L 501.5000, L100.4500, L100.0500, L3300.9900, L501.2300, L500.4050, L501.5200, L501.6710 ####[facility] [address] [place], [address] Sodium [Moles/Vol] 136 mmol/L Normal 133-145 [facility] Comment on above: Performed By: #### L 501.5000, L100.4500, L100.0500, L3300.9900, L501.2300, L500.4050, L501.5200, L501.6710 ####[facility] [address] [place], [place], [id number] T PROT 6.2 g/dL Normal 5.9-8.4 [facility] Comment on above: Performed By: #### L 501.5000, L100.4500, L100.0500, L3300.9900, L501.2300, L500.4050, L501.5200, L501.6710 ####[facility] [address] [place], [address] Urea nitrogen [Mass/Vol] 23 mg/dL High 4-19 [facility] Comment on above: Performed By: #### L 501.5000, L100.4500, L100.0500, L3300.9900, L501.2300, L500.4050, L501.5200, L501.6710 ####[facility] [address] [place], [address] Differential Commenton 09-11 SMEAR COMMENT SCANNED Normal [facility] Comment on above: Result Comment: 2+ A NISOCYTOSIS Performed By: #### L 501.5000, L100.4500, L100.0500, L3300.9900, L501.2300, L500.4050, L501.5200, L501.6710 ####[facility] [address] [place], [address] Erythrocyte distribution wid th ratioOrdered By: Olya Piña on 09-11-2024 Erythrocyte distribution width (RBC) [Ratio] 22.1 % High 11.6-14.6 [facility] Erythrocyte distribution wid th standard deviationOrdered By: Olya Piña on 09-11-2024 Erythrocyte distribution width (RBC) [Ratio] 66.0 fl High 35.1-43.9 [facility] Glomerular filtration rate ( GFR) estimation/1.73 sq m using serum, plasma, or whole bOrdered By: Olya Piña on 09-11-2024 GFR/1.73 sq M.predicted among non-blacks MDRD (S/P/Bld) [Vol rate/Area] 108 mL/min/{1.73_m2} >60 [facility] Hematocrit Auto (Bld) [Volum e fraction]Ordered By: Olya Piña on 09-11-2024 Hematocrit (Bld) [Volume fraction] 33.3 % Low 37-47 [facility] Hemoglobin measurementOrdere d By: Olya Piña on 09-11-2024 Hemoglobin (Bld) [Mass/Vol] 9.9 g/dL Low 12.0-15.0 [facility] MCV (mean corpuscular volume ) determinationOrdered By: Olya Piña on 09-11-2024 MCV (RBC) [Entitic vol] 82.6 fL 81-99 [facility] [facility] Magnesiumon 09-11-2024 Magnesium [Mass/Vol] 2.1 mg/dL Normal 1.5-2.2 [facility] Comment on above: Performed By: #### L 501.5000, L100.4500, L100.0500, L3300.9900, L501.2300, L500.4050, L501.5200, L501.6710 ####[facility] [address] [place], [address] Magnesium measurement (mass/ volume)Ordered By: Olya Piña on 09-11-2024 Magnesium (Unsp spec) [Mass/Vol] 2.1 mg/dL 1.5-2.2 [facility] Mean corpuscular hemoglobin (MCH) determinationOrdered By: Olya Piña on 09-11-2024 MCH (RBC) [Entitic mass] 24.6 pg Low 27.0-32.0 [facility] No Panel InformationOrdered By: Olya Piña on 09-11-2024 36 U/L High <32 [facility] Phosphoruson 09-11-2024 Phosphate [Mass/Vol] 3.4 mg/dL Normal 2.7-4.5 [facility] Comment on above: Performed By: #### L 501.5000, L100.4500, L100.0500, L3300.9900, L501.2300, L500.4050, L501.5200, L501.6710 ####[facility] [address] [place], [address] Platelet countOrdered By: Moe Piña on 09-11-2024 Platelets (Bld) [#/Vol] 456 10*3/uL High 150-450 [facility] Potassium measurement (mass/ volume)Ordered By: Olya Piña on 09-11-2024 Potassium (Unsp spec) [Mass/Vol] 4.4 mmol/L 3.3-5.1 [facility] RBC Auto (Bld) [#/Vol]Ordere d By: Olya Piña on 09-11-2024 RBC (Bld) [#/Vol] 4.03 10*6/uL Low 4.2-5.4 [facility] Serum creatinine measurement (mass/volume)Ordered By: Olya Piña on 09-11-2024 Creatinine [Mass/Vol] 0.39 mg/dL Low 0.70-1.20 [facility] Serum globulin measurementOr dered By: Olya Piña on 09-11-2024 Globulin (S) [Mass/Vol] 3.0 g/dL 2.2-4.2 [facility] Serum glucose measurement (m ass/volume)Ordered By: Olya Piña on 09-11-2024 Glucose [Mass/Vol] 34 mg/dL Low 70-99 [facility] Serum or plasma C reactive p rotein measurement (mass/volume)Ordered By: Olya Piña on 09-11-2024 CRP [Mass/Vol] 35.10 mg/L High 0.0-3.0 [facility] Serum or plasma alanine juarez otransferase (ALT) measurementOrdered By: Olya Piña on 09-11-2024 ALT [Catalytic activity/Vol] 35 U/L <35 [facility] Serum or plasma albumin cherelle urement (mass/volume)Ordered By: Olya Piña on 09-11-2024 Albumin [Mass/Vol] 3.3 g/dL Low 3.4-4.8 [facility] Serum or plasma albumin/glob ulin mass ratioOrdered By: Olya Piña on 09-11-2024 Albumin/Globulin [Mass ratio] 1.1 {ratio} 0.9-2.4 [facility] Serum or plasma alkaline piotr sphatase measurementOrdered By: Olya Piña on 09-11-2024 ALP [Catalytic activity/Vol] 164 U/L High 35-104 [facility] Serum or plasma calcium cherelle urement (mass/volume)Ordered By: Olya Piña on 09-11-2024 Calcium [Mass/Vol] 9.0 mg/dL 7.6-11.0 [facility] Serum or plasma urea nitroge n measurement (mass/volume)Ordered By: Olya Piña on 09-11-2024 Urea nitrogen [Mass/Vol] 23 mg/dL High 4-19 [facility] Serum or plasma zinc measure ment (mass/volume)Ordered By: Olya Piña on 09-11-2024 Zinc [Mass/Vol] 53 ug/dL 44-115 [facility] Sodium levelOrdered By: Deisy Piña on 09-11-2024 Sodium [Moles/Vol] 136 mmol/L 133-145 [facility] Total proteinOrdered By: Em Piña on 09-11-2024 Protein [Mass/Vol] 6.2 g/dL 5.9-8.4 [facility] Triglycerideson 09-11-2024 Triglyceride [Mass/Vol] 65 mg/dL Normal [facility] Comment on above: Result Comment: The drugs N-Acetylcysteine and Metamizole may falselydepress this assay.Normal range: <150 mg/dLBorderline High: 150-199 mg/dLHigh: 200-499 mg/dLVery High: >500 mg/dL Performed By: #### L 501.5000, L100.4500, L100.0500, L3300.9900, L501.2300, L500.4050, L501.5200, L501.6710 ####[facility] [address] [place], [address] White blood cell (WBC) count Ordered By: Olya Piña on 09-11-2024 WBC (Bld) [#/Vol] 5.4 10*3/uL 4.4-11.0 [facility] Anion gap in Serum or Plasma Ordered By: Olya Piña on 09-08-2024 Anion gap [Moles/Vol] 10 mmol/L 5-15 [facility] BUN/creatinine ratioOrdered By: Olya Piña on 09-08-2024 Urea nitrogen/Creatinine [Mass ratio] 59.9 mg/mg High 10-20 [facility] Bilirubin, totalOrdered By: Olya Piña on 09-08-2024 Bilirubin [Mass/Vol] mg/dL 0.00-1.30 [facility] CBC-Complete Blood Cnt No Di ffon 09-08-2024 Erythrocyte distribution width (RBC) [Ratio] 24.0 % High 11.6-14.6 [facility] Comment on above: Order Comment: 205.1 Performed By: #### L 501.5200, L100.0500, L500.4050, L501.5000, L501.2300 ####[facility] [address] [place], [address] Hematocrit (Bld) [Volume fraction] 30.9 % Low 37-47 [facility] Comment on above: Order Comment: 205.1 Performed By: #### L 501.5200, L100.0500, L500.4050, L501.5000, L501.2300 ####[facility] [address] [place], [address] Hemoglobin (Bld) [Mass/Vol] 9.1 g/dL Low 12.0-15.0 [facility] Comment on above: Order Comment: 205.1 Performed By: #### L 501.5200, L100.0500, L500.4050, L501.5000, L501.2300 ####[facility] [address] [place], [address] MCH (RBC) [Entitic mass] 24.4 pg Low 27.0-32.0 [facility] Comment on above: Order Comment: .1 Performed By: #### L 501.5200, L100.0500, L500.4050, L501.5000, L501.2300 ####[facility] [address] [place], [address] MCHC (RBC) [Mass/Vol] 29.4 g/dL Low 32-36 [facility] Comment on above: Order Comment: .1 Performed By: #### L 501.5200, L100.0500, L500.4050, L501.5000, L501.2300 ####[facility] [address] [place], [address] MCV (RBC) [Entitic vol] 82.8 fL Normal 81-99 [facility] Comment on above: Order Comment: . Performed By: #### L 501.5200, L100.0500, L500.4050, L501.5000, L501.2300 ####[facility] [address] [place], [address] Platelet mean volume (Bld) [Entitic vol] 9.1 fL Normal 6.2-12.0 [facility] Comment on above: Order Comment: .1 Performed By: #### L 501.5200, L100.0500, L500.4050, L501.5000, L501.2300 ####[facility] [address] [place], [address] Platelets (Bld) [#/Vol] 410 10*3/uL Normal 150-450 [facility] Comment on above: Order Comment: .1 Performed By: #### L 501.5200, L100.0500, L500.4050, L501.5000, L501.2300 ####[facility] [address] [place], [address] RBC (Bld) [#/Vol] 3.73 10*6/uL Low 4.2-5.4 [facility] Comment on above: Order Comment: . Performed By: #### L 501.5200, L100.0500, L500.4050, L501.5000, L501.2300 ####[facility] [address] [place], [place], [phone] RDW SD 73.0 fl High 35.1-43.9 [facility] Comment on above: Order Comment: . Performed By: #### L 501.5200, L100.0500, L500.4050, L501.5000, L501.2300 ####[facility] [address] [place], [place], [phone] WBC (Bld) [#/Vol] 4.5 10*3/uL Normal 4.4-11.0 [facility] Comment on above: Order Comment: . Performed By: #### L 501.5200, L100.0500, L500.4050, L501.5000, L501.2300 ####[facility] [address] [place], [place], [phone] Carbon dioxide, total [Moles /volume] in Central venous bloodOrdered By: Olya Piña on 09-08-2024 CO2 [Moles/Vol] 24.1 mmol/L 21.0-32.0 [facility] Chloride assayOrdered By: Moe Piña on 09-08-2024 Chloride [Moles/Vol] 102 mmol/L 98-108 [facility] Comprehensive Metabolic Prof ilon 09-08-2024 Albumin [Mass/Vol] 3.0 g/dL Low 3.4-4.8 [facility] Comment on above: Order Comment: . Performed By: #### L 501.5200, L100.0500, L500.4050, L501.5000, L501.2300 ####[facility] [address] [place], [address] Albumin/Globulin [Mass ratio] 1.0 {ratio} Normal 0.9-2.4 [facility] Comment on above: Order Comment: 205.1 Performed By: #### L 501.5200, L100.0500, L500.4050, L501.5000, L501.2300 ####[facility] [address] [place], [address] ALK PHOS 149 U/L High 35-104 [facility] Comment on above: Order Comment: .1 Performed By: #### L 501.5200, L100.0500, L500.4050, L501.5000, L501.2300 ####[facility] [address] [place], [address] ALT [Catalytic activity/Vol] 31 U/L Normal <=34 [facility] Comment on above: Order Comment: .1 Performed By: #### L 501.5200, L100.0500, L500.4050, L501.5000, L501.2300 ####[facility] [address] [place], [address] AST [Catalytic activity/Vol] 41 U/L High <=31 [facility] Comment on above: Order Comment: .1 Performed By: #### L 501.5200, L100.0500, L500.4050, L501.5000, L501.2300 ####[facility] [address] [place], [address] BUN/CRE 59.9 RATIO High 10-20 [facility] Comment on above: Order Comment: .1 Performed By: #### L 501.5200, L100.0500, L500.4050, L501.5000, L501.2300 ####[facility] [address] [place], [address] Calcium [Mass/Vol] 8.6 mg/dL Normal 7.6-11.0 [facility] Comment on above: Order Comment: 205.1 Performed By: #### L 501.5200, L100.0500, L500.4050, L501.5000, L501.2300 ####[facility] [address] [place], [address] Chloride [Moles/Vol] 102 mmol/L Normal 98-108 [facility] Comment on above: Order Comment: .1 Performed By: #### L 501.5200, L100.0500, L500.4050, L501.5000, L501.2300 ####[facility] [address] [place], [address] CO2 [Moles/Vol] 24.1 mmol/L Normal 21.0-32.0 [facility] Comment on above: Order Comment: .1 Performed By: #### L 501.5200, L100.0500, L500.4050, L501.5000, L501.2300 ####[facility] [address] [place], [address] Creatinine [Mass/Vol] 0.33 mg/dL Low 0.70-1.20 [facility] Comment on above: Order Comment: .1 Performed By: #### L 501.5200, L100.0500, L500.4050, L501.5000, L501.2300 ####[facility] [address] [place], [address] GAP 10 Normal 5-15 [facility] Comment on above: Order Comment: .1 Performed By: #### L 501.5200, L100.0500, L500.4050, L501.5000, L501.2300 ####[facility] [address] [place], [address] GFR/1.73 sq M.predicted among non-blacks MDRD (S/P/Bld) [Vol rate/Area] 112 mL/min/{1.73_m2} Normal >60 [facility] Comment on above: Order Comment: . Result Comment: mL/m in/1.73m2 CKD-EPI Creatinine Equation (2020) Performed By: #### L 501.5200, L100.0500, L500.4050, L501.5000, L501.2300 ####[facility] [address] [place], [address] Globulin (S) [Mass/Vol] 3.0 g/dL Normal 2.2-4.2 [facility] Comment on above: Order Comment: . Performed By: #### L 501.5200, L100.0500, L500.4050, L501.5000, L501.2300 ####[facility] [address] [place], [address] Glucose [Mass/Vol] 87 mg/dL Normal 70-99 [facility] Comment on above: Order Comment: . Performed By: #### L 501.5200, L100.0500, L500.4050, L501.5000, L501.2300 ####[facility] [address] [place], [address] Potassium [Moles/Vol] 4.2 mmol/L Normal 3.3-5.1 [facility] Comment on above: Order Comment: . Performed By: #### L 501.5200, L100.0500, L500.4050, L501.5000, L501.2300 ####[facility] [address] [place], [address] Sodium [Moles/Vol] 136 mmol/L Normal 133-145 [facility] Comment on above: Order Comment: . Performed By: #### L 501.5200, L100.0500, L500.4050, L501.5000, L501.2300 ####[facility] [address] [place], [address] T BILI < 0.15 Normal 0.00-1.30 [facility] Comment on above: Order Comment: 205.1 Performed By: #### L 501.5200, L100.0500, L500.4050, L501.5000, L501.2300 ####[facility] [address] [place], [address] T PROT 6.0 g/dL Normal 5.9-8.4 [facility] Comment on above: Order Comment: 205.1 Performed By: #### L 501.5200, L100.0500, L500.4050, L501.5000, L501.2300 ####[facility] [address] [place], [address] Urea nitrogen [Mass/Vol] 20 mg/dL High 4-19 [facility] Comment on above: Order Comment: 205.1 Performed By: #### L 501.5200, L100.0500, L500.4050, L501.5000, L501.2300 ####[facility] [address] [place], [address] Erythrocyte distribution wid th ratioOrdered By: Olya Piña on 09-08-2024 Erythrocyte distribution width (RBC) [Ratio] 24.0 % High 11.6-14.6 [facility] Erythrocyte distribution wid th standard deviationOrdered By: Olya Piña on 09-08-2024 Erythrocyte distribution width (RBC) [Ratio] 73.0 fl High 35.1-43.9 [facility] Glomerular filtration rate ( GFR) estimation/1.73 sq m using serum, plasma, or whole bOrdered By: Olya Piña on 09-08-2024 GFR/1.73 sq M.predicted among non-blacks MDRD (S/P/Bld) [Vol rate/Area] 112 mL/min/{1.73_m2} >60 [facility] Hematocrit Auto (Bld) [Volum e fraction]Ordered By: Olya Piña on 09-08-2024 Hematocrit (Bld) [Volume fraction] 30.9 % Low 37-47 [facility] Hemoglobin measurementOrdere d By: Olya Piña on 09-08-2024 Hemoglobin (Bld) [Mass/Vol] 9.1 g/dL Low 12.0-15.0 [facility] MCV (mean corpuscular volume ) determinationOrdered By: Olya Piña on 09-08-2024 MCV (RBC) [Entitic vol] 82.8 fL 81-99 [facility] Magnesiumon 09-08-2024 Magnesium [Mass/Vol] 2.1 mg/dL Normal 1.5-2.2 [facility] Comment on above: Order Comment: 205.1 Performed By: #### L 501.5200, L100.0500, L500.4050, L501.5000, L501.2300 ####[facility] [address] [place], [place], [id number] Magnesium measurement (mass/ volume)Ordered By: Olya Piña on 09-08-2024 Magnesium (Unsp spec) [Mass/Vol] 2.1 mg/dL 1.5-2.2 [facility] Mean corpuscular hemoglobin (MCH) determinationOrdered By: Olya Piña on 09-08-2024 MCH (RBC) [Entitic mass] 24.4 pg Low 27.0-32.0 [facility] No Panel InformationOrdered By: Olya Piña on 09-08-2024 41 U/L High <32 [facility] Phosphoruson 09-08-2024 Phosphate [Mass/Vol] 3.6 mg/dL Normal 2.7-4.5 [facility] Comment on above: Order Comment: 205.1 Performed By: #### L 501.5200, L100.0500, L500.4050, L501.5000, L501.2300 ####[facility] [address] [place], [place], [id number] Platelet countOrdered By: Moe Piña on 09-08-2024 Platelets (Bld) [#/Vol] 410 10*3/uL 150-450 [facility] Potassium measurement (mass/ volume)Ordered By: Olya Piña on 09-08-2024 Potassium (Unsp spec) [Mass/Vol] 4.2 mmol/L 3.3-5.1 [facility] RBC Auto (Bld) [#/Vol]Ordere d By: Olya Piña on 09-08-2024 RBC (Bld) [#/Vol] 3.73 10*6/uL Low 4.2-5.4 [facility] Serum creatinine measurement (mass/volume)Ordered By: Olya Piña on 09-08-2024 Creatinine [Mass/Vol] 0.33 mg/dL Low 0.70-1.20 [facility] Serum globulin measurementOr dered By: Olya Piña on 09-08-2024 Globulin (S) [Mass/Vol] 3.0 g/dL 2.2-4.2 [facility] Serum glucose measurement (m ass/volume)Ordered By: Olya Piña on 09-08-2024 Glucose [Mass/Vol] 87 mg/dL 70-99 [facility] Serum or plasma alanine juarez otransferase (ALT) measurementOrdered By: Olya Piña on 09-08-2024 ALT [Catalytic activity/Vol] 31 U/L <35 [facility] Serum or plasma albumin cherelle urement (mass/volume)Ordered By: Olya Piña on 09-08-2024 Albumin [Mass/Vol] 3.0 g/dL Low 3.4-4.8 [facility] Serum or plasma albumin/glob ulin mass ratioOrdered By: Olya Piña on 09-08-2024 Albumin/Globulin [Mass ratio] 1.0 {ratio} 0.9-2.4 [facility] Serum or plasma alkaline piotr sphatase measurementOrdered By: Olya Piña on 09-08-2024 ALP [Catalytic activity/Vol] 149 U/L High 35-104 [facility] Serum or plasma calcium cherelle urement (mass/volume)Ordered By: Olya Piña on 09-08-2024 Calcium [Mass/Vol] 8.6 mg/dL 7.6-11.0 [facility] Serum or plasma urea nitroge n measurement (mass/volume)Ordered By: Olya Piña on 09-08-2024 Urea nitrogen [Mass/Vol] 20 mg/dL High 4-19 [facility] Sodium levelOrdered By: Deisy Piña on 09-08-2024 Sodium [Moles/Vol] 136 mmol/L 133-145 [facility] Total proteinOrdered By: Em Piña on 09-08-2024 Protein [Mass/Vol] 6.0 g/dL 5.9-8.4 [facility] Triglycerideson 09-08-2024 Triglyceride [Mass/Vol] 64 mg/dL Normal [facility] Comment on above: Order Comment: 205.1 Result Comment: The drugs N-Acetylcysteine and Metamizole may falselydepress this assay.Normal range: <150 mg/dLBorderline High: 150-199 mg/dLHigh: 200-499 mg/dLVery High: >500 mg/dL Performed By: #### L 501.5200, L100.0500, L500.4050, L501.5000, L501.2300 ####[facility] [address] [place], [address] White blood cell (WBC) count Ordered By: Olya Piña on 09-08-2024 WBC (Bld) [#/Vol] 4.5 10*3/uL 4.4-11.0 [facility] Anion gap in Serum or Plasma Ordered By: Olya Piña on 09-06-2024 Anion gap [Moles/Vol] 10 mmol/L 5-15 [facility] BUN/creatinine ratioOrdered By: Olya Piña on 09-06-2024 Urea nitrogen/Creatinine [Mass ratio] 75.5 mg/mg High 10-20 [facility] Bilirubin, totalOrdered By: Olya Piña on 09-06-2024 Bilirubin [Mass/Vol] 0.22 mg/dL 0.00-1.30 [facility] CBC-Complete Blood Cnt No Di ffon 09-06-2024 Erythrocyte distribution width (RBC) [Ratio] 25.5 % High 11.6-14.6 [facility] Comment on above: Order Comment: 205 Performed By: #### L 100.0500, L501.2300, L500.4050, L501.5200, L501.5000 ####[facility] [address] [place], [address] Hematocrit (Bld) [Volume fraction] 32.8 % Low 37-47 [facility] Comment on above: Order Comment: 205 Performed By: #### L 100.0500, L501.2300, L500.4050, L501.5200, L501.5000 ####[facility] [address] [place], [address] Hemoglobin (Bld) [Mass/Vol] 9.5 g/dL Low 12.0-15.0 [facility] Comment on above: Order Comment: 205 Performed By: #### L 100.0500, L501.2300, L500.4050, L501.5200, L501.5000 ####[facility] [address] [place], [address] MCH (RBC) [Entitic mass] 24.4 pg Low 27.0-32.0 [facility] Comment on above: Order Comment: 205 Performed By: #### L 100.0500, L501.2300, L500.4050, L501.5200, L501.5000 ####[facility] [address] [place], [address] MCHC (RBC) [Mass/Vol] 29.0 g/dL Low 32-36 [facility] Comment on above: Order Comment: 205 Performed By: #### L 100.0500, L501.2300, L500.4050, L501.5200, L501.5000 ####[facility] [address] [place], [address] MCV (RBC) [Entitic vol] 84.1 fL Normal 81-99 [facility] Comment on above: Order Comment: 205 Performed By: #### L 100.0500, L501.2300, L500.4050, L501.5200, L501.5000 ####[facility] [address] [place], [address] Platelet mean volume (Bld) [Entitic vol] 9.3 fL Normal 6.2-12.0 [facility] Comment on above: Order Comment: 205 Performed By: #### L 100.0500, L501.2300, L500.4050, L501.5200, L501.5000 ####[facility] [address] [place], [address] Platelets (Bld) [#/Vol] 415 10*3/uL Normal 150-450 [facility] Comment on above: Order Comment: 205 Performed By: #### L 100.0500, L501.2300, L500.4050, L501.5200, L501.5000 ####[facility] [address] [place], [address] RBC (Bld) [#/Vol] 3.90 10*6/uL Low 4.2-5.4 [facility] Comment on above: Order Comment: 205 Performed By: #### L 100.0500, L501.2300, L500.4050, L501.5200, L501.5000 ####[facility] [address] [place], [address] RDW SD 76.0 fl High 35.1-43.9 [facility] Comment on above: Order Comment: 205 Performed By: #### L 100.0500, L501.2300, L500.4050, L501.5200, L501.5000 ####[facility] [address] [place], [address] WBC (Bld) [#/Vol] 4.7 10*3/uL Normal 4.4-11.0 [facility] Comment on above: Order Comment: 205 Performed By: #### L 100.0500, L501.2300, L500.4050, L501.5200, L501.5000 ####[facility] [address] [place], [address] Carbon dioxide, total [Moles /volume] in Central venous bloodOrdered By: Olya Piña on 09-06-2024 CO2 [Moles/Vol] 24.3 mmol/L 21.0-32.0 [facility] Chloride assayOrdered By: Moe Piña on 09-06-2024 Chloride [Moles/Vol] 102 mmol/L 98-108 [facility] Comprehensive Metabolic Prof ilon 09-06-2024 Albumin [Mass/Vol] 3.1 g/dL Low 3.4-4.8 [facility] Comment on above: Order Comment: 205 Performed By: #### L 100.0500, L501.2300, L500.4050, L501.5200, L501.5000 ####[facility] [address] [place], [address] Albumin/Globulin [Mass ratio] 1.0 {ratio} Normal 0.9-2.4 [facility] Comment on above: Order Comment: 205 Performed By: #### L 100.0500, L501.2300, L500.4050, L501.5200, L501.5000 ####[facility] [address] [place], [address] ALK PHOS 151 U/L High 35-104 [facility] [facility] Comment on above: Order Comment: 205 Performed By: #### L 100.0500, L501.2300, L500.4050, L501.5200, L501.5000 ####[facility] [address] [place], [address] ALT [Catalytic activity/Vol] 38 U/L High <=34 [facility] Comment on above: Order Comment: 205 Performed By: #### L 100.0500, L501.2300, L500.4050, L501.5200, L501.5000 ####[facility] [address] [place], [address] AST [Catalytic activity/Vol] 52 U/L High <=31 [facility] Comment on above: Order Comment: 205 Result Comment: Hemo lysis present, Results??could be affected.?? Performed By: #### L 100.0500, L501.2300, L500.4050, L501.5200, L501.5000 ####[facility] [address] [place], [address] Bilirubin [Mass/Vol] 0.22 mg/dL Normal 0.00-1.30 [facility] Comment on above: Order Comment: 205 Performed By: #### L 100.0500, L501.2300, L500.4050, L501.5200, L501.5000 ####[facility] [address] [place], [address] BUN/CRE 75.5 RATIO High 10-20 [facility] Comment on above: Order Comment: 205 Performed By: #### L 100.0500, L501.2300, L500.4050, L501.5200, L501.5000 ####[facility] [address] [place], [address] Calcium [Mass/Vol] 8.7 mg/dL Normal 7.6-11.0 [facility] Comment on above: Order Comment: 205 Performed By: #### L 100.0500, L501.2300, L500.4050, L501.5200, L501.5000 ####[facility] [address] [place], [address] Chloride [Moles/Vol] 102 mmol/L Normal 98-108 [facility] Comment on above: Order Comment: 205 Performed By: #### L 100.0500, L501.2300, L500.4050, L501.5200, L501.5000 ####[facility] [address] [place], [address] CO2 [Moles/Vol] 24.3 mmol/L Normal 21.0-32.0 [facility] Comment on above: Order Comment: 205 Performed By: #### L 100.0500, L501.2300, L500.4050, L501.5200, L501.5000 ####[facility] [address] [place], [address] Creatinine [Mass/Vol] 0.42 mg/dL Low 0.70-1.20 [facility] Comment on above: Order Comment: 205 Performed By: #### L 100.0500, L501.2300, L500.4050, L501.5200, L501.5000 ####[facility] [address] [place], [address] GAP 10 Normal 5-15 [facility] Comment on above: Order Comment: 205 Performed By: #### L 100.0500, L501.2300, L500.4050, L501.5200, L501.5000 ####[facility] [address] [place], [address] GFR/1.73 sq M.predicted among non-blacks MDRD (S/P/Bld) [Vol rate/Area] 106 mL/min/{1.73_m2} Normal >60 [facility] Comment on above: Order Comment: 205 Result Comment: mL/m in/1.73m2 CKD-EPI Creatinine Equation (2020) Performed By: #### L 100.0500, L501.2300, L500.4050, L501.5200, L501.5000 ####[facility] [address] [place], [address] Globulin (S) [Mass/Vol] 3.2 g/dL Normal 2.2-4.2 [facility] Comment on above: Order Comment: 205 Performed By: #### L 100.0500, L501.2300, L500.4050, L501.5200, L501.5000 ####[facility] [address] [place], [address] Glucose [Mass/Vol] 104 mg/dL High 70-99 [facility] Comment on above: Order Comment: 205 Performed By: #### L 100.0500, L501.2300, L500.4050, L501.5200, L501.5000 ####[facility] [address] [place], [address] Potassium [Moles/Vol] 4.7 mmol/L Normal 3.3-5.1 [facility] Comment on above: Order Comment: 205 Result Comment: Hemo lysis present, Results??could be affected.?? Performed By: #### L 100.0500, L501.2300, L500.4050, L501.5200, L501.5000 ####[facility] [address] [place], [address] Sodium [Moles/Vol] 136 mmol/L Normal 133-145 [facility] Comment on above: Order Comment: 205 Performed By: #### L 100.0500, L501.2300, L500.4050, L501.5200, L501.5000 ####[facility] [address] [place], [address] T PROT 6.3 g/dL Normal 5.9-8.4 [facility] Comment on above: Order Comment: 205 Performed By: #### L 100.0500, L501.2300, L500.4050, L501.5200, L501.5000 ####[facility] [address] [place], [address] Urea nitrogen [Mass/Vol] 31 mg/dL High 4-19 [facility] Comment on above: Order Comment: 205 Performed By: #### L 100.0500, L501.2300, L500.4050, L501.5200, L501.5000 ####[facility] [address] [place], [address] Erythrocyte distribution wid th ratioOrdered By: Olya Piña on 09-06-2024 Erythrocyte distribution width (RBC) [Ratio] 25.5 % High 11.6-14.6 [facility] Erythrocyte distribution wid th standard deviationOrdered By: Olyaleslie Piña on 09-06-2024 Erythrocyte distribution width (RBC) [Ratio] 76.0 fl High 35.1-43.9 [facility] Glomerular filtration rate ( GFR) estimation/1.73 sq m using serum, plasma, or whole bOrdered By: Olya Piña on 09-06-2024 GFR/1.73 sq M.predicted among non-blacks MDRD (S/P/Bld) [Vol rate/Area] 106 mL/min/{1.73_m2} >60 [facility] Hematocrit Auto (Bld) [Volum e fraction]Ordered By: Olya Piña on 09-06-2024 Hematocrit (Bld) [Volume fraction] 32.8 % Low 37-47 [facility] Hemoglobin measurementOrdere d By: Olya Piña on 09-06-2024 Hemoglobin (Bld) [Mass/Vol] 9.5 g/dL Low 12.0-15.0 [facility] MCV (mean corpuscular volume ) determinationOrdered By: Olya Piña on 09-06-2024 MCV (RBC) [Entitic vol] 84.1 fL 81-99 [facility] Magnesiumon 09-06-2024 Magnesium [Mass/Vol] 2.4 mg/dL High 1.5-2.2 [facility] Comment on above: Order Comment: 205 Performed By: #### L 100.0500, L501.2300, L500.4050, L501.5200, L501.5000 ####[facility] [address] [place], [address] Magnesium measurement (mass/ volume)Ordered By: Olya Piña on 09-06-2024 Magnesium (Unsp spec) [Mass/Vol] 2.4 mg/dL High 1.5-2.2 [facility] Mean corpuscular hemoglobin (MCH) determinationOrdered By: Olya Piña on 09-06-2024 MCH (RBC) [Entitic mass] 24.4 pg Low 27.0-32.0 [facility] No Panel InformationOrdered By: Olya Piña on 09-06-2024 52 U/L High <32 [facility] Phosphoruson 09-06-2024 Phosphate [Mass/Vol] 4.0 mg/dL Normal 2.7-4.5 [facility] Comment on above: Order Comment: 205 Performed By: #### L 100.0500, L501.2300, L500.4050, L501.5200, L501.5000 ####[facility] [address] [facility] [place], [address] Platelet countOrdered By: Moe Piña on 09-06-2024 Platelets (Bld) [#/Vol] 415 10*3/uL 150-450 [facility] Potassium measurement (mass/ volume)Ordered By: Olya Piña on 09-06-2024 Potassium (Unsp spec) [Mass/Vol] 4.7 mmol/L 3.3-5.1 [facility] RBC Auto (Bld) [#/Vol]Ordere d By: Olya Piña on 09-06-2024 RBC (Bld) [#/Vol] 3.90 10*6/uL Low 4.2-5.4 [facility] Serum creatinine measurement (mass/volume)Ordered By: Olya Piña on 09-06-2024 Creatinine [Mass/Vol] 0.42 mg/dL Low 0.70-1.20 [facility] Serum globulin measurementOr dered By: Olya Piña on 09-06-2024 Globulin (S) [Mass/Vol] 3.2 g/dL 2.2-4.2 [facility] Serum glucose measurement (m ass/volume)Ordered By: Olya Piña on 09-06-2024 Glucose [Mass/Vol] 104 mg/dL High 70-99 [facility] Serum or plasma alanine juarez otransferase (ALT) measurementOrdered By: Olya Piña on 09-06-2024 ALT [Catalytic activity/Vol] 38 U/L High <35 [facility] Serum or plasma albumin cherelle urement (mass/volume)Ordered By: Olya Piña on 09-06-2024 Albumin [Mass/Vol] 3.1 g/dL Low 3.4-4.8 [facility] Serum or plasma albumin/glob ulin mass ratioOrdered By: Olya Piña on 09-06-2024 Albumin/Globulin [Mass ratio] 1.0 {ratio} 0.9-2.4 [facility] Serum or plasma alkaline piotr sphatase measurementOrdered By: Olya Piña on 09-06-2024 ALP [Catalytic activity/Vol] 151 U/L High 35-104 [facility] Serum or plasma calcium cherelle urement (mass/volume)Ordered By: Olya Piña on 09-06-2024 Calcium [Mass/Vol] 8.7 mg/dL 7.6-11.0 [facility] Serum or plasma urea nitroge n measurement (mass/volume)Ordered By: Olya Piña on 09-06-2024 Urea nitrogen [Mass/Vol] 31 mg/dL High 4-19 [facility] Sodium levelOrdered By: Deisy Piña on 09-06-2024 Sodium [Moles/Vol] 136 mmol/L 133-145 [facility] Total proteinOrdered By: Em Piña on 09-06-2024 Protein [Mass/Vol] 6.3 g/dL 5.9-8.4 [facility] Triglycerideson 09-06-2024 Triglyceride [Mass/Vol] 49 mg/dL Normal [facility] Comment on above: Order Comment: 205 Result Comment: The drugs N-Acetylcysteine and Metamizole may falselydepress this assay.Normal range: <150 mg/dLBorderline High: 150-199 mg/dLHigh: 200-499 mg/dLVery High: >500 mg/dL Performed By: #### L 100.0500, L501.2300, L500.4050, L501.5200, L501.5000 ####[facility] [address] [place], [place], [phone] White blood cell (WBC) count Ordered By: Olya Piña on 09-06-2024 WBC (Bld) [#/Vol] 4.7 10*3/uL 4.4-11.0 [facility] Zinc, WHOLE BLOODon 09-07-19 25 Zinc Whole Bld 535 ug/dL Normal 440-860 [facility] Comment on above: Order Comment: Test( s) 236100-Pjze, Whole Bloodwas developed and its performance characteristicsdetermined by [employer]. It has not been cleared or approvedby the Food and Drug Administration. Result Comment: Perf ormed at: - [facility] [id number] Director: Elvie Fry MD, Phone: [phone] Performed By: #### L 501.5000, L506.1001, L501.2300, L100.0500, L500.4050, L501.5200, L501.6710, L503.0106, L100.4500, L3300.9910 ####[facility] [address] [place], [place], [phone] Anion gap in Serum or Plasma Ordered By: Olya Piña on 09-04-2024 Anion gap [Moles/Vol] 9 mmol/L - [facility] BUN/creatinine ratioOrdered By: Olya Piña on 09-04-2024 Urea nitrogen/Creatinine [Mass ratio] 46.6 mg/mg High - [facility] Bilirubin, totalOrdered By: Olya Piña on 09-04-2024 Bilirubin [Mass/Vol] 0.24 mg/dL 0.00-1.30 [facility] Blood manual differential co mment interpretation (narrative result)Ordered By: Olya Piña on 09-04-2024 Manual differential comment Alexis (Bld) [Interp] See comment [facility] CBC-Complete Blood Cnt No Di ffon 09-04-2024 Erythrocyte distribution width (RBC) [Ratio] 27.6 % High 11.6-14.6 [facility] Comment on above: Order Comment: Performed By: #### L 501.5000, L506.1001, L501.2300, L100.0500, L500.4050, L501.5200, L501.6710, L503.0106, L100.4500, L3300.9910 ####[facility] [address], [address] Hematocrit (Bld) [Volume fraction] 32.0 % Low 37-47 [facility] Comment on above: Order Comment: Performed By: #### L 501.5000, L506.1001, L501.2300, L100.0500, L500.4050, L501.5200, L501.6710, L503.0106, L100.4500, L3300.9910 ####[facility] [address], [address] Hemoglobin (Bld) [Mass/Vol] 9.2 g/dL Low 12.0-15.0 [facility] Comment on above: Order Comment: Performed By: #### L 501.5000, L506.1001, L501.2300, L100.0500, L500.4050, L501.5200, L501.6710, L503.0106, L100.4500, L3300.9910 ####[facility] [address] [place], [address] MCH (RBC) [Entitic mass] 24.4 pg Low 27.0-32.0 [facility] Comment on above: Order Comment: Performed By: #### L 501.5000, L506.1001, L501.2300, L100.0500, L500.4050, L501.5200, L501.6710, L503.0106, L100.4500, L3300.9910 ####[facility] [address] [place], [address] MCHC (RBC) [Mass/Vol] 28.8 g/dL Low 32-36 [facility] Comment on above: Order Comment: Performed By: #### L 501.5000, L506.1001, L501.2300, L100.0500, L500.4050, L501.5200, L501.6710, L503.0106, L100.4500, L3300.9910 ####[facility] [address] [place], [address] MCV (RBC) [Entitic vol] 84.9 fL Normal 81-99 [facility] Comment on above: Order Comment: Performed By: #### L 501.5000, L506.1001, L501.2300, L100.0500, L500.4050, L501.5200, L501.6710, L503.0106, L100.4500, L3300.9910 ####[facility] [address] [place], [address] Platelet mean volume (Bld) [Entitic vol] 9.2 fL Normal 6.2-12.0 [facility] Comment on above: Order Comment: Performed By: #### L 501.5000, L506.1001, L501.2300, L100.0500, L500.4050, L501.5200, L501.6710, L503.0106, L100.4500, L3300.9910 ####[facility] [address] [place], [address] Platelets (Bld) [#/Vol] 456 10*3/uL High 150-450 [facility] Comment on above: Order Comment: Performed By: #### L 501.5000, L506.1001, L501.2300, L100.0500, L500.4050, L501.5200, L501.6710, L503.0106, L100.4500, L3300.9910 ####[facility] [address] [place], [place], [phone]) RBC (Bld) [#/Vol] 3.77 10*6/uL Low 4.2-5.4 [facility] Comment on above: Order Comment: Performed By: #### L 501.5000, L506.1001, L501.2300, L100.0500, L500.4050, L501.5200, L501.6710, L503.0106, L100.4500, L3300.9910 ####[facility] [address] [place], [place], [phone] RDW SD 80.7 fl High 35.1-43.9 [facility] Comment on above: Order Comment: Performed By: #### L 501.5000, L506.1001, L501.2300, L100.0500, L500.4050, L501.5200, L501.6710, L503.0106, L100.4500, L3300.9910 ####[facility] [address] [place], [place], [phone] WBC (Bld) [#/Vol] 4.9 10*3/uL Normal 4.4-11.0 [facility] Comment on above: Order Comment: Performed By: #### L 501.5000, L506.1001, L501.2300, L100.0500, L500.4050, L501.5200, L501.6710, L503.0106, L100.4500, L3300.9910 ####[facility] [address] [place], [address] CRPon 09-04-2024 C-REACTIVE PROT 34.40 mg/L High 0.0-3.0 [facility] Comment on above: Order Comment: Performed By: #### L 501.5000, L506.1001, L501.2300, L100.0500, L500.4050, L501.5200, L501.6710, L503.0106, L100.4500, L3300.9910 ####[facility] [address] [place], [place], [phone] Carbon dioxide, total [Moles /volume] in Central venous bloodOrdered By: Olya Piña on 09-04-2024 CO2 [Moles/Vol] 26.6 mmol/L 21.0-32.0 [facility] Chloride assayOrdered By: Moe Piña on 09-04-2024 Chloride [Moles/Vol] 103 mmol/L 98-108 [facility] Comprehensive Metabolic Prof ilon 09-04-2024 Albumin [Mass/Vol] 3.0 g/dL Low 3.4-4.8 [facility] Comment on above: Order Comment: Performed By: #### L 501.5000, L506.1001, L501.2300, L100.0500, L500.4050, L501.5200, L501.6710, L503.0106, L100.4500, L3300.9910 ####[facility] [address] [place], [place], [phone] Albumin/Globulin [Mass ratio] 1.0 {ratio} Normal 0.9-2.4 [facility] Comment on above: Order Comment: Performed By: #### L 501.5000, L506.1001, L501.2300, L100.0500, L500.4050, L501.5200, L501.6710, L503.0106, L100.4500, L3300.9910 ####[facility] [address] [place], [address] ALK PHOS 139 U/L High 35-104 [facility] Comment on above: Order Comment: Performed By: #### L 501.5000, L506.1001, L501.2300, L100.0500, L500.4050, L501.5200, L501.6710, L503.0106, L100.4500, L3300.9910 ####[facility] [address] [place], [place], [phone] ALT [Catalytic activity/Vol] 23 U/L Normal <=34 [facility] Comment on above: Order Comment: Performed By: #### L 501.5000, L506.1001, L501.2300, L100.0500, L500.4050, L501.5200, L501.6710, L503.0106, L100.4500, L3300.9910 ####[facility] [address] [place], [address] AST [Catalytic activity/Vol] 33 U/L High <=31 [facility] Comment on above: Order Comment: Performed By: #### L 501.5000, L506.1001, L501.2300, L100.0500, L500.4050, L501.5200, L501.6710, L503.0106, L100.4500, L3300.9910 ####[facility] [address] [place], [address] Bilirubin [Mass/Vol] 0.24 mg/dL Normal 0.00-1.30 [facility] Comment on above: Order Comment: Performed By: #### L 501.5000, L506.1001, L501.2300, L100.0500, L500.4050, L501.5200, L501.6710, L503.0106, L100.4500, L3300.9910 ####[facility] [address] [place], [address] BUN/CRE 46.6 RATIO High 10-20 [facility] Comment on above: Order Comment: Performed By: #### L 501.5000, L506.1001, L501.2300, L100.0500, L500.4050, L501.5200, L501.6710, L503.0106, L100.4500, L3300.9910 ####[facility] [address] [place], [place], [phone] Calcium [Mass/Vol] 8.8 mg/dL Normal 7.6-11.0 [facility] Comment on above: Order Comment: Performed By: #### L 501.5000, L506.1001, L501.2300, L100.0500, L500.4050, L501.5200, L501.6710, L503.0106, L100.4500, L3300.9910 ####[facility] [address] [place], [place], [phone] Chloride [Moles/Vol] 103 mmol/L Normal 98-108 [facility] Comment on above: Order Comment: Performed By: #### L 501.5000, L506.1001, L501.2300, L100.0500, L500.4050, L501.5200, L501.6710, L503.0106, L100.4500, L3300.9910 ####[facility] [address] [place], [place], [phone] CO2 [Moles/Vol] 26.6 mmol/L Normal 21.0-32.0 [facility] Comment on above: Order Comment: Performed By: #### L 501.5000, L506.1001, L501.2300, L100.0500, L500.4050, L501.5200, L501.6710, L503.0106, L100.4500, L3300.9910 ####[facility] [address] [place], [address] Creatinine [Mass/Vol] 0.39 mg/dL Low 0.70-1.20 [facility] Comment on above: Order Comment: Performed By: #### L 501.5000, L506.1001, L501.2300, L100.0500, L500.4050, L501.5200, L501.6710, L503.0106, L100.4500, L3300.9910 ####[facility] [address] [place], [address] GAP 9 Normal 5-15 [facility] Comment on above: Order Comment: Performed By: #### L 501.5000, L506.1001, L501.2300, L100.0500, L500.4050, L501.5200, L501.6710, L503.0106, L100.4500, L3300.9910 ####[facility] [address] [place], [address] GFR/1.73 sq M.predicted among non-blacks MDRD (S/P/Bld) [Vol rate/Area] 108 mL/min/{1.73_m2} Normal >60 [facility] Comment on above: Order Comment: Result Comment: mL/m in/1.73m2 CKD-EPI Creatinine Equation (2020) Performed By: #### L 501.5000, L506.1001, L501.2300, L100.0500, L500.4050, L501.5200, L501.6710, L503.0106, L100.4500, L3300.9910 ####[facility] [address] [place], [address] Globulin (S) [Mass/Vol] 3.1 g/dL Normal 2.2-4.2 [facility] Comment on above: Order Comment: Performed By: #### L 501.5000, L506.1001, L501.2300, L100.0500, L500.4050, L501.5200, L501.6710, L503.0106, L100.4500, L3300.9910 ####[facility] [address] [place], [address] Glucose [Mass/Vol] 76 mg/dL Normal 70-99 [facility] Comment on above: Order Comment: Performed By: #### L 501.5000, L506.1001, L501.2300, L100.0500, L500.4050, L501.5200, L501.6710, L503.0106, L100.4500, L3300.9910 ####[facility] [address] [place], [address] Potassium [Moles/Vol] 4.1 mmol/L Normal 3.3-5.1 [facility] Comment on above: Order Comment: Performed By: #### L 501.5000, L506.1001, L501.2300, L100.0500, L500.4050, L501.5200, L501.6710, L503.0106, L100.4500, L3300.9910 ####[facility] [address] [place], [address] Sodium [Moles/Vol] 138 mmol/L Normal 133-145 [facility] Comment on above: Order Comment: Performed By: #### L 501.5000, L506.1001, L501.2300, L100.0500, L500.4050, L501.5200, L501.6710, L503.0106, L100.4500, L3300.9910 ####[facility] [address] [place], [address] T PROT 6.1 g/dL Normal 5.9-8.4 [facility] Comment on above: Order Comment: Performed By: #### L 501.5000, L506.1001, L501.2300, L100.0500, L500.4050, L501.5200, L501.6710, L503.0106, L100.4500, L3300.9910 ####[facility] [address] [place], [place], [phone] Urea nitrogen [Mass/Vol] 18 mg/dL Normal 4-19 [facility] Comment on above: Order Comment: Performed By: #### L 501.5000, L506.1001, L501.2300, L100.0500, L500.4050, L501.5200, L501.6710, L503.0106, L100.4500, L3300.9910 ####[facility] [address] [place], [place], [id number] Differential Commenton 09-04 SMEAR COMMENT Normal [facility] Comment on above: Order Comment: Result Comment: ANIS OCYTOSIS 1+ AMENDED REPORT 09/04/24 1047 SMEAR COMMENT previously reported as:ANISOCYTOSIS 1+ Performed By: #### L 501.5000, L506.1001, L501.2300, L100.0500, L500.4050, L501.5200, L501.6710, L503.0106, L100.4500, L3300.9910 ####[facility] [address] [place], [place], [id number] Erythrocyte distribution wid th ratioOrdered By: Olya Piña on 09-04-2024 Erythrocyte distribution width (RBC) [Ratio] 27.6 % High 11.6-14.6 [facility] Erythrocyte distribution wid th standard deviationOrdered By: Olya Piña on 09-04-2024 Erythrocyte distribution width (RBC) [Ratio] 80.7 fl High 35.1-43.9 [facility] Glomerular filtration rate ( GFR) estimation/1.73 sq m using serum, plasma, or whole bOrdered By: Olya Piña on 09-04-2024 GFR/1.73 sq M.predicted among non-blacks MDRD (S/P/Bld) [Vol rate/Area] 108 mL/min/{1.73_m2} >60 [facility] Hematocrit Auto (Bld) [Volum e fraction]Ordered By: Olya Piña on 09-04-2024 Hematocrit (Bld) [Volume fraction] 32.0 % Low 37-47 [facility] Hemoglobin measurementOrdere d By: Olya Piña on 09-04-2024 Hemoglobin (Bld) [Mass/Vol] 9.2 g/dL Low 12.0-15.0 [facility] MCV (mean corpuscular volume ) determinationOrdered By: Olya Piña on 09-04-2024 MCV (RBC) [Entitic vol] 84.9 fL 81-99 [facility] Magnesiumon 09-04-2024 Magnesium [Mass/Vol] 2.2 mg/dL Normal 1.5-2.2 [facility] Comment on above: Order Comment: Performed By: #### L 501.5000, L506.1001, L501.2300, L100.0500, L500.4050, L501.5200, L501.6710, L503.0106, L100.4500, L3300.9910 ####[facility] [address] [place], [place], [id number] Magnesium measurement (mass/ volume)Ordered By: Olya Piña on 09-04-2024 Magnesium (Unsp spec) [Mass/Vol] 2.2 mg/dL 1.5-2.2 [facility] Mean corpuscular hemoglobin (MCH) determinationOrdered By: Olya Piña on 09-04-2024 MCH (RBC) [Entitic mass] 24.4 pg Low 27.0-32.0 [facility] No Panel InformationOrdered By: Olya Piña on 09-04-2024 33 U/L High <32 [facility] Phosphoruson 09-04-2024 Phosphate [Mass/Vol] 3.9 mg/dL Normal 2.7-4.5 [facility] Comment on above: Order Comment: Performed By: #### L 501.5000, L506.1001, L501.2300, L100.0500, L500.4050, L501.5200, L501.6710, L503.0106, L100.4500, L3300.9910 ####[facility] [address] [place], [address] Platelet countOrdered By: Moe Piña on 09-04-2024 Platelets (Bld) [#/Vol] 456 10*3/uL High 150-450 [facility] Potassium measurement (mass/ volume)Ordered By: Olya Piña on 09-04-2024 Potassium (Unsp spec) [Mass/Vol] 4.1 mmol/L 3.3-5.1 [facility] RBC Auto (Bld) [#/Vol]Ordere d By: Olya Piña on 09-04-2024 RBC (Bld) [#/Vol] 3.77 10*6/uL Low 4.2-5.4 [facility] Serum creatinine measurement (mass/volume)Ordered By: Olya Piña on 09-04-2024 Creatinine [Mass/Vol] 0.39 mg/dL Low 0.70-1.20 [facility] Serum globulin measurementOr dered By: Olya Piña on 09-04-2024 Globulin (S) [Mass/Vol] 3.1 g/dL 2.2-4.2 [facility] Serum glucose measurement (m ass/volume)Ordered By: Olya Piña on 09-04-2024 Glucose [Mass/Vol] 76 mg/dL 70-99 [facility] Serum or plasma C reactive p rotein measurement (mass/volume)Ordered By: Olya Piña on 09-04-2024 CRP [Mass/Vol] 34.40 mg/L High 0.0-3.0 [facility] Serum or plasma alanine juarez otransferase (ALT) measurementOrdered By: Olya Piña on 09-04-2024 ALT [Catalytic activity/Vol] 23 U/L <35 [facility] Serum or plasma albumin cherelle urement (mass/volume)Ordered By: Olya Piña on 09-04-2024 Albumin [Mass/Vol] 3.0 g/dL Low 3.4-4.8 [facility] Serum or plasma albumin/glob ulin mass ratioOrdered By: Olya Piña on 09-04-2024 Albumin/Globulin [Mass ratio] 1.0 {ratio} 0.9-2.4 [facility] Serum or plasma alkaline piotr sphatase measurementOrdered By: Olya Piña on 09-04-2024 ALP [Catalytic activity/Vol] 139 U/L High 35-104 [facility] Serum or plasma calcium cherelle urement (mass/volume)Ordered By: Olya Piña on 09-04-2024 Calcium [Mass/Vol] 8.8 mg/dL 7.6-11.0 [facility] Serum or plasma urea nitroge n measurement (mass/volume)Ordered By: Olya Piña on 09-04-2024 Urea nitrogen [Mass/Vol] 18 mg/dL 4-19 [facility] Sodium levelOrdered By: Deisy Piña on 09-04-2024 Sodium [Moles/Vol] 138 mmol/L 133-145 [facility] Total proteinOrdered By: Em Piña on 09-04-2024 Protein [Mass/Vol] 6.1 g/dL 5.9-8.4 [facility] Triglycerideson 09-04-2024 Triglyceride [Mass/Vol] 66 mg/dL Normal [facility] Comment on above: Order Comment: 205 Result Comment: The drugs N-Acetylcysteine and Metamizole may falselydepress this assay.Normal range: <150 mg/dLBorderline High: 150-199 mg/dLHigh: 200-499 mg/dLVery High: >500 mg/dL Performed By: #### L 501.5000, L506.1001, L501.2300, L100.0500, L500.4050, L501.5200, L501.6710, L503.0106, L100.4500, L3300.9910 ####[facility] [address] [place], [address] Vitamin B12on 09-04-2024 Cobalamin (Vitamin B12) [Mass/Vol] 401 pg/mL Normal 180-914 [facility] Comment on above: Order Comment: Performed By: #### L 501.5000, L506.1001, L501.2300, L100.0500, L500.4050, L501.5200, L501.6710, L503.0106, L100.4500, L3300.9910 ####[facility] [address] [facility] [address] [place], [place], [id number] Vitamin B12 ser/plasOrdered By: Olya Piña on 09-04-2024 Cobalamin (Vitamin B12) [Mass/Vol] 401 pg/mL 180-914 [facility] Vitamin D,25 Hydroxyon 09-04 Vitamin D 25-OH 20.4 ng/mL Low 30-100 [facility] Comment on above: Order Comment: Result Comment: Kim min D StatusDeficiency: <20 ng/mL (50nmol/L)Insufficiency: 20-30 ng/mL (50-75 nmol/L)Sufficiency: 30-100 ng/mL (75-250 nmol/L)Toxicity: >100 ng/mL (>250 nmol/L) Performed By: #### L 501.5000, L506.1001, L501.2300, L100.0500, L500.4050, L501.5200, L501.6710, L503.0106, L100.4500, L3300.9910 ####[facility] [address] [facility] [place], [place], [phone] White blood cell (WBC) count Ordered By: Olya Piña on 09-04-2024 WBC (Bld) [#/Vol] 4.9 10*3/uL 4.4-11.0 [facility] Anion gap in Serum or Plasma Ordered By: Olya Piña on 09-01-2024 Anion gap [Moles/Vol] 11 mmol/L 5-15 [facility] BUN/creatinine ratioOrdered By: Olya Piña on 09-01-2024 Urea nitrogen/Creatinine [Mass ratio] 70.5 mg/mg High 10-20 [facility] Bilirubin, totalOrdered By: Olya Piña on 09-01-2024 Bilirubin [Mass/Vol] 0.26 mg/dL 0.00-1.30 [facility] Blood manual differential co mment interpretation (narrative result)Ordered By: Olya Piña on 09-01-2024 Manual differential comment Alexis (Bld) [Interp] See comment [facility] CBC-Complete Blood Cnt No Di ffon 09-01-2024 Erythrocyte distribution width (RBC) [Ratio] 29.7 % High 11.6-14.6 [facility] Comment on above: Order Comment: Performed By: #### L 501.5200, L501.5000, L501.2300, L100.4500, L500.4050, L100.0500 ####[facility] [address] [place], [address] Hematocrit (Bld) [Volume fraction] 32.2 % Low 37-47 [facility] Comment on above: Order Comment: Performed By: #### L 501.5200, L501.5000, L501.2300, L100.4500, L500.4050, L100.0500 ####[facility] [address] [place], [address] Hemoglobin (Bld) [Mass/Vol] 9.2 g/dL Low 12.0-15.0 [facility] Comment on above: Order Comment: Performed By: #### L 501.5200, L501.5000, L501.2300, L100.4500, L500.4050, L100.0500 ####[facility] [address] [place], [address] MCH (RBC) [Entitic mass] 23.8 pg Low 27.0-32.0 [facility] Comment on above: Order Comment: Performed By: #### L 501.5200, L501.5000, L501.2300, L100.4500, L500.4050, L100.0500 ####[facility] [address] [place], [address] MCHC (RBC) [Mass/Vol] 28.6 g/dL Low 32-36 [facility] Comment on above: Order Comment: Performed By: #### L 501.5200, L501.5000, L501.2300, L100.4500, L500.4050, L100.0500 ####[facility] [address] [place], [address] MCV (RBC) [Entitic vol] 83.2 fL Normal 81-99 [facility] Comment on above: Order Comment: Performed By: #### L 501.5200, L501.5000, L501.2300, L100.4500, L500.4050, L100.0500 ####[facility] [address] [place], [address] Platelet mean volume (Bld) [Entitic vol] 9.0 fL Normal 6.2-12.0 [facility] Comment on above: Order Comment: Performed By: #### L 501.5200, L501.5000, L501.2300, L100.4500, L500.4050, L100.0500 ####[facility] [address] [place], [address] Platelets (Bld) [#/Vol] 529 10*3/uL High 150-450 [facility] Comment on above: Order Comment: Performed By: #### L 501.5200, L501.5000, L501.2300, L100.4500, L500.4050, L100.0500 ####[facility] [address] [place], [address] RBC (Bld) [#/Vol] 3.87 10*6/uL Low 4.2-5.4 [facility] Comment on above: Order Comment: Performed By: #### L 501.5200, L501.5000, L501.2300, L100.4500, L500.4050, L100.0500 ####[facility] [address] [place], [address] RDW SD 84.3 fl High 35.1-43.9 [facility] Comment on above: Order Comment: Performed By: #### L 501.5200, L501.5000, L501.2300, L100.4500, L500.4050, L100.0500 ####[facility] [address] [place], [address] WBC (Bld) [#/Vol] 5.4 10*3/uL Normal 4.4-11.0 [facility] Comment on above: Order Comment: Performed By: #### L 501.5200, L501.5000, L501.2300, L100.4500, L500.4050, L100.0500 ####[facility] [address] [place], [place], [id number] Carbon dioxide, total [Moles /volume] in Central venous bloodOrdered By: Olya Piña on 09-01-2024 CO2 [Moles/Vol] 23.9 mmol/L 21.0-32.0 [facility] Chloride assayOrdered By: Moe Piña on 09-01-2024 Chloride [Moles/Vol] 102 mmol/L 98-108 [facility] Comprehensive Metabolic Prof ilon 09-01-2024 Albumin [Mass/Vol] 3.1 g/dL Low 3.4-4.8 [facility] Comment on above: Order Comment: Performed By: #### L 501.5200, L501.5000, L501.2300, L100.4500, L500.4050, L100.0500 ####[facility] [address] [place], [address] Albumin/Globulin [Mass ratio] 0.9 {ratio} Normal 0.9-2.4 [facility] Comment on above: Order Comment: Performed By: #### L 501.5200, L501.5000, L501.2300, L100.4500, L500.4050, L100.0500 ####[facility] [address] [place], [address] ALK PHOS 146 U/L High 35-104 [facility] Comment on above: Order Comment: Performed By: #### L 501.5200, L501.5000, L501.2300, L100.4500, L500.4050, L100.0500 ####[facility] [address] [place], [address] ALT [Catalytic activity/Vol] 25 U/L Normal <=34 [facility] Comment on above: Order Comment: Performed By: #### L 501.5200, L501.5000, L501.2300, L100.4500, L500.4050, L100.0500 ####[facility] [address] [place], [address] AST [Catalytic activity/Vol] 37 U/L High <=31 [facility] Comment on above: Order Comment: Performed By: #### L 501.5200, L501.5000, L501.2300, L100.4500, L500.4050, L100.0500 ####[facility] [address] [place], [address] Bilirubin [Mass/Vol] 0.26 mg/dL Normal 0.00-1.30 [facility] Comment on above: Order Comment: Performed By: #### L 501.5200, L501.5000, L501.2300, L100.4500, L500.4050, L100.0500 ####[facility] [address] [place], [address] BUN/CRE 70.5 RATIO High 10-20 [facility] Comment on above: Order Comment: Performed By: #### L 501.5200, L501.5000, L501.2300, L100.4500, L500.4050, L100.0500 ####[facility] [address] [place], [address] Calcium [Mass/Vol] 8.8 mg/dL Normal 7.6-11.0 [facility] Comment on above: Order Comment: Performed By: #### L 501.5200, L501.5000, L501.2300, L100.4500, L500.4050, L100.0500 ####[facility] [address] [place], [address] Chloride [Moles/Vol] 102 mmol/L Normal 98-108 [facility] Comment on above: Order Comment: Performed By: #### L 501.5200, L501.5000, L501.2300, L100.4500, L500.4050, L100.0500 ####[facility] [address] [place], [address] CO2 [Moles/Vol] 23.9 mmol/L Normal 21.0-32.0 [facility] Comment on above: Order Comment: Performed By: #### L 501.5200, L501.5000, L501.2300, L100.4500, L500.4050, L100.0500 ####[facility] [address] [place], [address] Creatinine [Mass/Vol] 0.39 mg/dL Low 0.70-1.20 [facility] Comment on above: Order Comment: Performed By: #### L 501.5200, L501.5000, L501.2300, L100.4500, L500.4050, L100.0500 ####[facility] [address] [place], [address] GAP 11 Normal 5-15 [facility] Comment on above: Order Comment: Performed By: #### L 501.5200, L501.5000, L501.2300, L100.4500, L500.4050, L100.0500 ####[facility] [address] [place], [address] GFR/1.73 sq M.predicted among non-blacks MDRD (S/P/Bld) [Vol rate/Area] 108 mL/min/{1.73_m2} Normal >60 [facility] Comment on above: Order Comment: Result Comment: mL/m in/1.73m2 CKD-EPI Creatinine Equation (2020) Performed By: #### L 501.5200, L501.5000, L501.2300, L100.4500, L500.4050, L100.0500 ####[facility] [address] [place], [address] Globulin (S) [Mass/Vol] 3.3 g/dL Normal 2.2-4.2 [facility] Comment on above: Order Comment: Performed By: #### L 501.5200, L501.5000, L501.2300, L100.4500, L500.4050, L100.0500 ####[facility] [address] [place], [address] Glucose [Mass/Vol] 79 mg/dL Normal 70-99 [facility] Comment on above: Order Comment: Performed By: #### L 501.5200, L501.5000, L501.2300, L100.4500, L500.4050, L100.0500 ####[facility] [address] [place], [address] Potassium [Moles/Vol] 4.2 mmol/L Normal 3.3-5.1 [facility] Comment on above: Order Comment: Performed By: #### L 501.5200, L501.5000, L501.2300, L100.4500, L500.4050, L100.0500 ####[facility] [address] [place], [address] Sodium [Moles/Vol] 137 mmol/L Normal 133-145 [facility] Comment on above: Order Comment: Performed By: #### L 501.5200, L501.5000, L501.2300, L100.4500, L500.4050, L100.0500 ####[facility] [address] [place], [address] T PROT 6.5 g/dL Normal 5.9-8.4 [facility] Comment on above: Order Comment: Performed By: #### L 501.5200, L501.5000, L501.2300, L100.4500, L500.4050, L100.0500 ####[facility] [address] [place], [address] Urea nitrogen [Mass/Vol] 27 mg/dL High 4-19 [facility] Comment on above: Order Comment: Performed By: #### L 501.5200, L501.5000, L501.2300, L100.4500, L500.4050, L100.0500 ####[facility] [address] [place], [address] Differential Commenton 09-01 SMEAR COMMENT Normal [facility] Comment on above: Order Comment: Result Comment: 1+ P OLYCHROMASIA2+ ANISOCYTOSISMODERATELY INCREASED PLATELETS Performed By: #### L 501.5200, L501.5000, L501.2300, L100.4500, L500.4050, L100.0500 ####[facility] [address] [place], [place], [id number] Erythrocyte distribution wid th ratioOrdered By: Olya Piña on 09-01-2024 Erythrocyte distribution width (RBC) [Ratio] 29.7 % High 11.6-14.6 [facility] Erythrocyte distribution wid th standard deviationOrdered By: Olyaleslie Piña on 09-01-2024 Erythrocyte distribution width (RBC) [Ratio] 84.3 fl High 35.1-43.9 [facility] Glomerular filtration rate ( GFR) estimation/1.73 sq m using serum, plasma, or whole bOrdered By: Olya Piña on 09-01-2024 GFR/1.73 sq M.predicted among non-blacks MDRD (S/P/Bld) [Vol rate/Area] 108 mL/min/{1.73_m2} >60 [facility] Hematocrit Auto (Bld) [Volum e fraction]Ordered By: Olya Piña on 09-01-2024 Hematocrit (Bld) [Volume fraction] 32.2 % Low 37-47 [facility] Hemoglobin measurementOrdere d By: Olyaleslie Piña on 09-01-2024 Hemoglobin (Bld) [Mass/Vol] 9.2 g/dL Low 12.0-15.0 [facility] MCV (mean corpuscular volume ) determinationOrdered By: Olya Piña on 09-01-2024 MCV (RBC) [Entitic vol] 83.2 fL 81-99 [facility] Magnesiumon 09-01-2024 Magnesium [Mass/Vol] 2.4 mg/dL High 1.5-2.2 [facility] Comment on above: Order Comment: Performed By: #### L 501.5200, L501.5000, L501.2300, L100.4500, L500.4050, L100.0500 ####[facility] [address] [place], [address] Magnesium measurement (mass/ volume)Ordered By: Olya Piña on 09-01-2024 Magnesium (Unsp spec) [Mass/Vol] 2.4 mg/dL High 1.5-2.2 [facility] Mean corpuscular hemoglobin (MCH) determinationOrdered By: Olya Piña on 09-01-2024 MCH (RBC) [Entitic mass] 23.8 pg Low 27.0-32.0 [facility] No Panel InformationOrdered By: Olya Piña on 09-01-2024 37 U/L High <32 [facility] Phosphoruson 09-01-2024 Phosphate [Mass/Vol] 3.7 mg/dL Normal 2.7-4.5 [facility] Comment on above: Order Comment: Performed By: #### L 501.5200, L501.5000, L501.2300, L100.4500, L500.4050, L100.0500 ####[facility] [address] [place], [place], [id number] Platelet countOrdered By: Moe Piña on 09-01-2024 Platelets (Bld) [#/Vol] 529 10*3/uL High 150-450 [facility] Potassium measurement (mass/ volume)Ordered By: Olya Piña on 09-01-2024 Potassium (Unsp spec) [Mass/Vol] 4.2 mmol/L 3.3-5.1 [facility] RBC Auto (Bld) [#/Vol]Ordere d By: Olya Piña on 09-01-2024 RBC (Bld) [#/Vol] 3.87 10*6/uL Low 4.2-5.4 [facility] Serum creatinine measurement (mass/volume)Ordered By: Olya Piña on 09-01-2024 Creatinine [Mass/Vol] 0.39 mg/dL Low 0.70-1.20 [facility] Serum globulin measurementOr dered By: Olya Piña on 09-01-2024 Globulin (S) [Mass/Vol] 3.3 g/dL 2.2-4.2 [facility] Serum glucose measurement (m ass/volume)Ordered By: Olya Piña on 09-01-2024 Glucose [Mass/Vol] 79 mg/dL 70-99 [facility] Serum or plasma alanine juarez otransferase (ALT) measurementOrdered By: Olya Piña on 09-01-2024 ALT [Catalytic activity/Vol] 25 U/L <35 [facility] Serum or plasma albumin cherelle urement (mass/volume)Ordered By: Olya Piña on 09-01-2024 Albumin [Mass/Vol] 3.1 g/dL Low 3.4-4.8 [facility] Serum or plasma albumin/glob ulin mass ratioOrdered By: Olya Piña on 09-01-2024 Albumin/Globulin [Mass ratio] 0.9 {ratio} 0.9-2.4 [facility] Serum or plasma alkaline piotr sphatase measurementOrdered By: Olya Piña on 09-01-2024 ALP [Catalytic activity/Vol] 146 U/L High 35-104 [facility] Serum or plasma calcium cherelle urement (mass/volume)Ordered By: Olya Piña on 09-01-2024 Calcium [Mass/Vol] 8.8 mg/dL 7.6-11.0 [facility] Serum or plasma urea nitroge n measurement (mass/volume)Ordered By: Olya Piña on 09-01-2024 Urea nitrogen [Mass/Vol] 27 mg/dL High 4-19 [facility] Sodium levelOrdered By: Deisy Piña on 09-01-2024 Sodium [Moles/Vol] 137 mmol/L 133-145 [facility] Total proteinOrdered By: Em Piña on 09-01-2024 Protein [Mass/Vol] 6.5 g/dL 5.9-8.4 [facility] Triglycerideson 09-01-2024 Triglyceride [Mass/Vol] 67 mg/dL Normal [facility] Comment on above: Order Comment: Result Comment: The drugs N-Acetylcysteine and Metamizole may falselydepress this assay.Normal range: <150 mg/dLBorderline High: 150-199 mg/dLHigh: 200-499 mg/dLVery High: >500 mg/dL Performed By: #### L 501.5200, L501.5000, L501.2300, L100.4500, L500.4050, L100.0500 ####[facility] [address] [place], [place], [id number] White blood cell (WBC) count Ordered By: Olya Piña on 09-01-2024 WBC (Bld) [#/Vol] 5.4 10*3/uL 4.4-11.0 [facility] Zinc, Plasma or Serumon ZINC,PLASMA/SER 41 ug/dL Low 44-115 [facility] Comment on above: Order Comment: Test( s) 635717-[id number], Plasma or Serumwas developed and its performance characteristicsdetermined by [employer]. It has not been cleared or approvedby the Food and Drug Administration. Result Comment: Dete ction Limit = 5Performed at: [facility] [address] [id number] Director: Elvie Fry MD, Phone: [phone] Performed By: #### L 100.4500, L500.4050, L501.5200, L100.0500, L501.5000, L501.6710, L501.2300, L3300.9900 ####[facility] [address] [place], [place], [phone] Anion gap in Serum or Plasma Ordered By: Olya Piña on 08-30-2024 Anion gap [Moles/Vol] 9 mmol/L 5-15 [facility] BUN/creatinine ratioOrdered By: Olya Piña on 08-30-2024 Urea nitrogen/Creatinine [Mass ratio] 42.9 mg/mg High 10-20 [facility] Bilirubin, totalOrdered By: Olya Piña on 08-30-2024 Bilirubin [Mass/Vol] 0.24 mg/dL 0.00-1.30 [facility] Blood manual differential co mment interpretation (narrative result)Ordered By: Olya Piña on 08-30-2024 Manual differential comment Alexis (Bld) [Interp] SCANNED [facility] CBC-Complete Blood Cnt No Di ffon 08-30-2024 Erythrocyte distribution width (RBC) [Ratio] 31.3 % High 11.6-14.6 [facility] Comment on above: Order Comment: 200 Performed By: #### L 100.4500, L500.4050, L501.5200, L501.2300, L501.5000, L100.0500 ####[facility] [address] [place], [address] Hematocrit (Bld) [Volume fraction] 29.6 % Low 37-47 [facility] Comment on above: Order Comment: 200 Performed By: #### L 100.4500, L500.4050, L501.5200, L501.2300, L501.5000, L100.0500 ####[facility] [address] [place], [address] Hemoglobin (Bld) [Mass/Vol] 8.6 g/dL Low 12.0-15.0 [facility] [facility] Comment on above: Order Comment: 200 Performed By: #### L 100.4500, L500.4050, L501.5200, L501.2300, L501.5000, L100.0500 ####[facility] [address] [place], [address] MCH (RBC) [Entitic mass] 23.8 pg Low 27.0-32.0 [facility] Comment on above: Order Comment: 200 Performed By: #### L 100.4500, L500.4050, L501.5200, L501.2300, L501.5000, L100.0500 ####[facility] [address] [place], [address] MCHC (RBC) [Mass/Vol] 29.1 g/dL Low 32-36 [facility] Comment on above: Order Comment: 200 Performed By: #### L 100.4500, L500.4050, L501.5200, L501.2300, L501.5000, L100.0500 ####[facility] [address] [place], [address] MCV (RBC) [Entitic vol] 81.8 fL Normal 81-99 [facility] Comment on above: Order Comment: 200 Performed By: #### L 100.4500, L500.4050, L501.5200, L501.2300, L501.5000, L100.0500 ####[facility] [address] [place], [address] Platelet mean volume (Bld) [Entitic vol] 8.9 fL Normal 6.2-12.0 [facility] Comment on above: Order Comment: 200 Performed By: #### L 100.4500, L500.4050, L501.5200, L501.2300, L501.5000, L100.0500 ####[facility] [address] [place], [address] Platelets (Bld) [#/Vol] 489 10*3/uL High 150-450 [facility] Comment on above: Order Comment: 200 Performed By: #### L 100.4500, L500.4050, L501.5200, L501.2300, L501.5000, L100.0500 ####[facility] [address] [place], [address] RBC (Bld) [#/Vol] 3.62 10*6/uL Low 4.2-5.4 [facility] Comment on above: Order Comment: 200 Performed By: #### L 100.4500, L500.4050, L501.5200, L501.2300, L501.5000, L100.0500 ####[facility] [address] [place], [address] RDW SD 87.4 fl High 35.1-43.9 [facility] Comment on above: Order Comment: 200 Performed By: #### L 100.4500, L500.4050, L501.5200, L501.2300, L501.5000, L100.0500 ####[facility] [address] [place], [address] WBC (Bld) [#/Vol] 5.7 10*3/uL Normal 4.4-11.0 [facility] Comment on above: Order Comment: 200 Performed By: #### L 100.4500, L500.4050, L501.5200, L501.2300, L501.5000, L100.0500 ####[facility] [address] [place], [address](636) Carbon dioxide, total [Moles /volume] in Central venous bloodOrdered By: Olya Piña on 08-30-2024 CO2 [Moles/Vol] 23.6 mmol/L 21.0-32.0 [facility] Chloride assayOrdered By: Moe Piña on 08-30-2024 Chloride [Moles/Vol] 105 mmol/L 98-108 [facility] Comprehensive Metabolic Prof ilon 08-30-2024 Albumin [Mass/Vol] 2.8 g/dL Low 3.4-4.8 [facility] Comment on above: Order Comment: 200 Performed By: #### L 100.4500, L500.4050, L501.5200, L501.2300, L501.5000, L100.0500 ####[facility] [address] [place], [address] Albumin/Globulin [Mass ratio] 0.9 {ratio} Normal 0.9-2.4 [facility] Comment on above: Order Comment: 200 Performed By: #### L 100.4500, L500.4050, L501.5200, L501.2300, L501.5000, L100.0500 ####[facility] [address] [place], [address] ALK PHOS 125 U/L High 35-104 [facility] Comment on above: Order Comment: 200 Performed By: #### L 100.4500, L500.4050, L501.5200, L501.2300, L501.5000, L100.0500 ####[facility] [address] [place], [address] ALT [Catalytic activity/Vol] 20 U/L Normal <=34 [facility] Comment on above: Order Comment: 200 Performed By: #### L 100.4500, L500.4050, L501.5200, L501.2300, L501.5000, L100.0500 ####[facility] [address] [place], [address] AST [Catalytic activity/Vol] 35 U/L High <=31 [facility] Comment on above: Order Comment: 200 Performed By: #### L 100.4500, L500.4050, L501.5200, L501.2300, L501.5000, L100.0500 ####[facility] [address] [place], [address] Bilirubin [Mass/Vol] 0.24 mg/dL Normal 0.00-1.30 [facility] Comment on above: Order Comment: 200 Performed By: #### L 100.4500, L500.4050, L501.5200, L501.2300, L501.5000, L100.0500 ####[facility] [address] [place], [address] BUN/CRE 42.9 RATIO High 10-20 [facility] Comment on above: Order Comment: 200 Performed By: #### L 100.4500, L500.4050, L501.5200, L501.2300, L501.5000, L100.0500 ####[facility] [address] [place], [address] Calcium [Mass/Vol] 8.6 mg/dL Normal 7.6-11.0 [facility] Comment on above: Order Comment: 200 Performed By: #### L 100.4500, L500.4050, L501.5200, L501.2300, L501.5000, L100.0500 ####[facility] [address] [place], [address] Chloride [Moles/Vol] 105 mmol/L Normal 98-108 [facility] Comment on above: Order Comment: 200 Performed By: #### L 100.4500, L500.4050, L501.5200, L501.2300, L501.5000, L100.0500 ####[facility] [address] [place], [address] CO2 [Moles/Vol] 23.6 mmol/L Normal 21.0-32.0 [facility] Comment on above: Order Comment: 200 Performed By: #### L 100.4500, L500.4050, L501.5200, L501.2300, L501.5000, L100.0500 ####[facility] [address] [place], [address] Creatinine [Mass/Vol] 0.41 mg/dL Low 0.70-1.20 [facility] Comment on above: Order Comment: 200 Performed By: #### L 100.4500, L500.4050, L501.5200, L501.2300, L501.5000, L100.0500 ####[facility] [address] [place], [address] GAP 9 Normal 5-15 [facility] Comment on above: Order Comment: 200 Performed By: #### L 100.4500, L500.4050, L501.5200, L501.2300, L501.5000, L100.0500 ####[facility] [address] [place], [address] GFR/1.73 sq M.predicted among non-blacks MDRD (S/P/Bld) [Vol rate/Area] 106 mL/min/{1.73_m2} Normal >60 [facility] Comment on above: Order Comment: 200 Result Comment: mL/m in/1.73m2 CKD-EPI Creatinine Equation (2020) Performed By: #### L 100.4500, L500.4050, L501.5200, L501.2300, L501.5000, L100.0500 ####[facility] [address] [place], [address] Globulin (S) [Mass/Vol] 3.2 g/dL Normal 2.2-4.2 [facility] Comment on above: Order Comment: 200 Performed By: #### L 100.4500, L500.4050, L501.5200, L501.2300, L501.5000, L100.0500 ####[facility] [address] [place], [address] Glucose [Mass/Vol] 86 mg/dL Normal 70-99 [facility] Comment on above: Order Comment: 200 Performed By: #### L 100.4500, L500.4050, L501.5200, L501.2300, L501.5000, L100.0500 ####[facility] [address] [place], [address] Potassium [Moles/Vol] 4.4 mmol/L Normal 3.3-5.1 [facility] Comment on above: Order Comment: 200 Performed By: #### L 100.4500, L500.4050, L501.5200, L501.2300, L501.5000, L100.0500 ####[facility] [address] [place], [address] Sodium [Moles/Vol] 137 mmol/L Normal 133-145 [facility] Comment on above: Order Comment: 200 Performed By: #### L 100.4500, L500.4050, L501.5200, L501.2300, L501.5000, L100.0500 ####[facility] [address] [place], [place], [id number] T PROT 6.0 g/dL Normal 5.9-8.4 [facility] Comment on above: Order Comment: 200 Performed By: #### L 100.4500, L500.4050, L501.5200, L501.2300, L501.5000, L100.0500 ####[facility] [address] [place], [address] Urea nitrogen [Mass/Vol] 18 mg/dL Normal 4-19 [facility] Comment on above: Order Comment: 200 Performed By: #### L 100.4500, L500.4050, L501.5200, L501.2300, L501.5000, L100.0500 ####[facility] [address] [place], [place], [id number] Differential Commenton 08-30 SMEAR COMMENT SCANNED Normal [facility] Comment on above: Order Comment: 200 Result Comment: 3+ A NISOCYTOSIS Performed By: #### L 100.4500, L500.4050, L501.5200, L501.2300, L501.5000, L100.0500 ####[facility] [address] [place], [place], [id number] Erythrocyte distribution wid th ratioOrdered By: Olya Piña on 08-30-2024 Erythrocyte distribution width (RBC) [Ratio] 31.3 % High 11.6-14.6 [facility] Erythrocyte distribution wid th standard deviationOrdered By: Olya Piña on 08-30-2024 Erythrocyte distribution width (RBC) [Ratio] 87.4 fl High 35.1-43.9 [facility] Glomerular filtration rate ( GFR) estimation/1.73 sq m using serum, plasma, or whole bOrdered By: Olya Piña on 08-30-2024 GFR/1.73 sq M.predicted among non-blacks MDRD (S/P/Bld) [Vol rate/Area] 106 mL/min/{1.73_m2} >60 [facility] Hematocrit Auto (Bld) [Volum e fraction]Ordered By: Olya Piña on 08-30-2024 Hematocrit (Bld) [Volume fraction] 29.6 % Low 37-47 [facility] Hemoglobin measurementOrdere d By: Olya Piña on 08-30-2024 Hemoglobin (Bld) [Mass/Vol] 8.6 g/dL Low 12.0-15.0 [facility] MCV (mean corpuscular volume ) determinationOrdered By: Olya Piña on 08-30-2024 MCV (RBC) [Entitic vol] 81.8 fL 81-99 [facility] Magnesiumon 08-30-2024 Magnesium [Mass/Vol] 2.2 mg/dL Normal 1.5-2.2 [facility] Comment on above: Order Comment: 200 Performed By: #### L 100.4500, L500.4050, L501.5200, L501.2300, L501.5000, L100.0500 ####[facility] [address] [place], [place], [id number] Magnesium measurement (mass/ volume)Ordered By: Olya Piña on 08-30-2024 Magnesium (Unsp spec) [Mass/Vol] 2.2 mg/dL 1.5-2.2 [facility] Mean corpuscular hemoglobin (MCH) determinationOrdered By: Olya Piña on 08-30-2024 MCH (RBC) [Entitic mass] 23.8 pg Low 27.0-32.0 [facility] No Panel InformationOrdered By: Olya Piña on 08-30-2024 35 U/L High <32 [facility] Phosphoruson 08-30-2024 Phosphate [Mass/Vol] 3.2 mg/dL Normal 2.7-4.5 [facility] Comment on above: Order Comment: 200 Performed By: #### L 100.4500, L500.4050, L501.5200, L501.2300, L501.5000, L100.0500 ####[facility] [address] [place], [address] Platelet countOrdered By: Moe Piña on 08-30-2024 Platelets (Bld) [#/Vol] 489 10*3/uL High 150-450 [facility] Potassium measurement (mass/ volume)Ordered By: Olya Piña on 08-30-2024 Potassium (Unsp spec) [Mass/Vol] 4.4 mmol/L 3.3-5.1 [facility] RBC Auto (Bld) [#/Vol]Ordere d By: Olya Piña on 08-30-2024 RBC (Bld) [#/Vol] 3.62 10*6/uL Low 4.2-5.4 [facility] Serum creatinine measurement (mass/volume)Ordered By: Olya Piña on 08-30-2024 Creatinine [Mass/Vol] 0.41 mg/dL Low 0.70-1.20 [facility] Serum globulin measurementOr dered By: Olya Piña on 08-30-2024 Globulin (S) [Mass/Vol] 3.2 g/dL 2.2-4.2 [facility] Serum glucose measurement (m ass/volume)Ordered By: Olya Piña on 08-30-2024 Glucose [Mass/Vol] 86 mg/dL 70-99 [facility] Serum or plasma alanine juarez otransferase (ALT) measurementOrdered By: Olya Piña on 08-30-2024 ALT [Catalytic activity/Vol] 20 U/L <35 [facility] Serum or plasma albumin cherelle urement (mass/volume)Ordered By: Olya Piña on 08-30-2024 Albumin [Mass/Vol] 2.8 g/dL Low 3.4-4.8 [facility] Serum or plasma albumin/glob ulin mass ratioOrdered By: Olya Piña on 08-30-2024 Albumin/Globulin [Mass ratio] 0.9 {ratio} 0.9-2.4 [facility] Serum or plasma alkaline piotr sphatase measurementOrdered By: Olya Piña on 08-30-2024 ALP [Catalytic activity/Vol] 125 U/L High 35-104 [facility] Serum or plasma calcium cherelle urement (mass/volume)Ordered By: Olya Piña on 08-30-2024 Calcium [Mass/Vol] 8.6 mg/dL 7.6-11.0 [facility] Serum or plasma urea nitroge n measurement (mass/volume)Ordered By: Olya Piña on 08-30-2024 Urea nitrogen [Mass/Vol] 18 mg/dL 4-19 [facility] Sodium levelOrdered By: Deisy Piña on 08-30-2024 Sodium [Moles/Vol] 137 mmol/L 133-145 [facility] Total proteinOrdered By: Em Piña on 08-30-2024 Protein [Mass/Vol] 6.0 g/dL 5.9-8.4 [facility] Triglycerideson 08-30-2024 Triglyceride [Mass/Vol] 66 mg/dL Normal [facility] Comment on above: Order Comment: 200 Result Comment: The drugs N-Acetylcysteine and Metamizole may falselydepress this assay.Normal range: <150 mg/dLBorderline High: 150-199 mg/dLHigh: 200-499 mg/dLVery High: >500 mg/dL Performed By: #### L 100.4500, L500.4050, L501.5200, L501.2300, L501.5000, L100.0500 ####[facility] [address] [place], [address] White blood cell (WBC) count Ordered By: Olya Piña on 08-30-2024 WBC (Bld) [#/Vol] 5.7 10*3/uL 4.4-11.0 [facility] Anion gap in Serum or Plasma Ordered By: Olya Piña on 08-28-2024 Anion gap [Moles/Vol] 12 mmol/L 5-15 [facility] Automated blood erythrocyte countOrdered By: Olya Piña on 08-28-2024 RBC (Bld) [#/Vol] 3.52 10*6/uL Low 4.2-5.4 [facility] Comment on above: Order Comment: 205 Performed By: #### L 100.4500, L500.4050, L501.5200, L100.0500, L501.5000, L501.6710, L501.2300, L3300.9900 ####[facility] [address] [place], [place], [phone] Automated blood hematocrit ( percentage)Ordered By: Olya Piña on 08-28-2024 Hematocrit (Bld) [Volume fraction] 28.4 % Low 37-47 [facility] Comment on above: Order Comment: 205 Performed By: #### L 100.4500, L500.4050, L501.5200, L100.0500, L501.5000, L501.6710, L501.2300, L3300.9900 ####[facility] [address] [place], [place], [id number] BUN/creatinine ratioOrdered By: Olya Piña on 08-28-2024 Urea nitrogen/Creatinine [Mass ratio] 103.4 mg/mg High 10-20 [facility] Bilirubin, totalOrdered By: Olya Piña on 08-28-2024 Bilirubin [Mass/Vol] 0.23 mg/dL Normal 0.00-1.30 [facility] Comment on above: Order Comment: 205 Performed By: #### L 100.4500, L500.4050, L501.5200, L100.0500, L501.5000, L501.6710, L501.2300, L3300.9900 ####[facility] [address] [place], [address] Blood manual differential co mment interpretation (narrative result)Ordered By: Olya Piña on 08-28-2024 Manual differential comment Alexis (Bld) [Interp] COMMENT [facility] CBC-Complete Blood Cnt No Di ffon 08-28-2024 MCHC (RBC) [Mass/Vol] 28.9 g/dL Low 32-36 [facility] Comment on above: Order Comment: 205 Performed By: #### L 100.4500, L500.4050, L501.5200, L100.0500, L501.5000, L501.6710, L501.2300, L3300.9900 ####[facility] [address] [place], [address] Platelet mean volume (Bld) [Entitic vol] 8.9 fL Normal 6.2-12.0 [facility] Comment on above: Order Comment: 205 Performed By: #### L 100.4500, L500.4050, L501.5200, L100.0500, L501.5000, L501.6710, L501.2300, L3300.9900 ####[facility] [address] [place], [place], [phone] CRPon 08-28-2024 C-REACTIVE PROT 24.10 mg/L High 0.0-3.0 [facility] Comment on above: Order Comment: 205 Performed By: #### L 100.4500, L500.4050, L501.5200, L100.0500, L501.5000, L501.6710, L501.2300, L3300.9900 ####[facility] [address] [place], [address] Carbon dioxide, total [Moles /volume] in Central venous bloodOrdered By: Olya Piña on 08-28-2024 CO2 [Moles/Vol] 19.0 mmol/L Low 21.0-32.0 [facility] Comment on above: Order Comment: 205 Performed By: #### L 100.4500, L500.4050, L501.5200, L100.0500, L501.5000, L501.6710, L501.2300, L3300.9900 ####[facility] [address] [place], [place], [phone] Chloride assayOrdered By: Moe Piña on 08-28-2024 Chloride [Moles/Vol] 104 mmol/L Normal 98-108 [facility] Comment on above: Order Comment: 205 Performed By: #### L 100.4500, L500.4050, L501.5200, L100.0500, L501.5000, L501.6710, L501.2300, L3300.9900 ####[facility] [address] [place], [place], [phone] Comprehensive Metabolic Prof ilon 08-28-2024 ALK PHOS 134 U/L High 35-104 [facility] Comment on above: Order Comment: 205 Performed By: #### L 100.4500, L500.4050, L501.5200, L100.0500, L501.5000, L501.6710, L501.2300, L3300.9900 ####[facility] [address] [place], [place], [address] AST [Catalytic activity/Vol] 32 U/L Normal <=31 [facility] Comment on above: Order Comment: 205 Performed By: #### L 100.4500, L500.4050, L501.5200, L100.0500, L501.5000, L501.6710, L501.2300, L3300.9900 ####[facility] [address] [place], [place], [phone] BUN/CRE 103.4 RATIO High 10-20 [facility] Comment on above: Order Comment: 205 Performed By: #### L 100.4500, L500.4050, L501.5200, L100.0500, L501.5000, L501.6710, L501.2300, L3300.9900 ####[facility] [address] [place], [place], [address] GAP 12 Normal 5-15 [facility] Comment on above: Order Comment: 205 Performed By: #### L 100.4500, L500.4050, L501.5200, L100.0500, L501.5000, L501.6710, L501.2300, L3300.9900 ####[facility] [address] [place], [place], [phone] Potassium [Moles/Vol] 4.2 mmol/L Normal 3.3-5.1 [facility] Comment on above: Order Comment: 205 Performed By: #### L 100.4500, L500.4050, L501.5200, L100.0500, L501.5000, L501.6710, L501.2300, L3300.9900 ####[facility] [address] [place], [address] T PROT 6.0 g/dL Normal 5.9-8.4 [facility] Comment on above: Order Comment: 205 Performed By: #### L 100.4500, L500.4050, L501.5200, L100.0500, L501.5000, L501.6710, L501.2300, L3300.9900 ####[facility] [address] [place], [place], [phone] Differential Commenton 08-28 SMEAR COMMENT COMMENT Normal [facility] Comment on above: Order Comment: 205 Result Comment: DIMO RPHIC RBC POPULATION NOTED ON SLIDE REVIEW. Performed By: #### L 100.4500, L500.4050, L501.5200, L100.0500, L501.5000, L501.6710, L501.2300, L3300.9900 ####[facility] [address] [place], [place], [phone] Erythrocyte distribution wid th ratioOrdered By: Olya Piña on 08-28-2024 Erythrocyte distribution width (RBC) [Ratio] Not Reportable [facility] Glomerular filtration rate ( GFR) estimation/1.73 sq m using serum, plasma, or whole bOrdered By: Olya Piña on 08-28-2024 GFR/1.73 sq M.predicted among non-blacks MDRD (S/P/Bld) [Vol rate/Area] 113 mL/min/{1.73_m2} Normal >60 [facility] Comment on above: Order Comment: 205 Result Comment: mL/m in/1.73m2 CKD-EPI Creatinine Equation (2020) Performed By: #### L 100.4500, L500.4050, L501.5200, L100.0500, L501.5000, L501.6710, L501.2300, L3300.9900 ####[facility] [address] [place], [place], [id number] Hemoglobin measurementOrdere d By: Olya Piña on 08-28-2024 Hemoglobin (Bld) [Mass/Vol] 8.2 g/dL Low 12.0-15.0 [facility] Comment on above: Order Comment: 205 Performed By: #### L 100.4500, L500.4050, L501.5200, L100.0500, L501.5000, L501.6710, L501.2300, L3300.9900 ####[facility] [address] [place], [place], [phone] MCV (mean corpuscular volume ) determinationOrdered By: Olya Piña on 08-28-2024 MCV (RBC) [Entitic vol] 80.7 fL Low 81-99 [facility] Comment on above: Order Comment: 205 Performed By: #### L 100.4500, L500.4050, L501.5200, L100.0500, L501.5000, L501.6710, L501.2300, L3300.9900 ####[facility] [address] [place], [address] Magnesiumon 08-28-2024 Magnesium [Mass/Vol] 2.2 mg/dL Normal 1.5-2.2 [facility] Comment on above: Order Comment: 205 Performed By: #### L 100.4500, L500.4050, L501.5200, L100.0500, L501.5000, L501.6710, L501.2300, L3300.9900 ####[facility] [address] [place], [place], [id number] Magnesium measurement (mass/ volume)Ordered By: Olya Piña on 08-28-2024 Magnesium (Unsp spec) [Mass/Vol] 2.2 mg/dL 1.5-2.2 [facility] Mean corpuscular hemoglobin (MCH) determinationOrdered By: Olya Piña on 08-28-2024 MCH (RBC) [Entitic mass] 23.3 pg Low 27.0-32.0 [facility] Comment on above: Order Comment: 205 Performed By: #### L 100.4500, L500.4050, L501.5200, L100.0500, L501.5000, L501.6710, L501.2300, L3300.9900 ####[facility] [address] [place], [place], [phone] No Panel InformationOrdered By: Olya Piña on 08-28-2024 32 U/L <32 [facility] Phosphoruson 08-28-2024 Phosphate [Mass/Vol] 2.9 mg/dL Normal 2.7-4.5 [facility] Comment on above: Order Comment: 205 Performed By: #### L 100.4500, L500.4050, L501.5200, L100.0500, L501.5000, L501.6710, L501.2300, L3300.9900 ####[facility] [address] [place], [place], [phone] Platelet countOrdered By: Moe Piña on 08-28-2024 Platelets (Bld) [#/Vol] 535 10*3/uL High 150-450 [facility] Comment on above: Order Comment: 205 Performed By: #### L 100.4500, L500.4050, L501.5200, L100.0500, L501.5000, L501.6710, L501.2300, L3300.9900 ####[facility] [address] [place], [place], [phone] Potassium measurement (mass/ volume)Ordered By: Olya Piña on 08-28-2024 Potassium (Unsp spec) [Mass/Vol] 4.2 mmol/L 3.3-5.1 [facility] [facility] Serum creatinine measurement (mass/volume)Ordered By: Olya Piña on 08-28-2024 Creatinine [Mass/Vol] 0.32 mg/dL Low 0.70-1.20 [facility] Comment on above: Order Comment: 205 Performed By: #### L 100.4500, L500.4050, L501.5200, L100.0500, L501.5000, L501.6710, L501.2300, L3300.9900 ####[facility] [address] [place], [address] Serum globulin measurementOr dered By: Olya Piña on 08-28-2024 Globulin (S) [Mass/Vol] 2.9 g/dL Normal 2.2-4.2 [facility] Comment on above: Order Comment: 205 Performed By: #### L 100.4500, L500.4050, L501.5200, L100.0500, L501.5000, L501.6710, L501.2300, L3300.9900 ####[facility] [address] [place], [place], [id number] Serum glucose measurement (m ass/volume)Ordered By: Olya Piña on 08-28-2024 Glucose [Mass/Vol] 119 mg/dL High 70-99 [facility] Comment on above: Order Comment: 205 Performed By: #### L 100.4500, L500.4050, L501.5200, L100.0500, L501.5000, L501.6710, L501.2300, L3300.9900 ####[facility] [address] [place], [address] Serum or plasma C reactive p rotein measurement (mass/volume)Ordered By: Olya Piña on 08-28-2024 CRP [Mass/Vol] 24.10 mg/L High 0.0-3.0 [facility] Serum or plasma alanine juarez otransferase (ALT) measurementOrdered By: Olya Piña on 08-28-2024 ALT [Catalytic activity/Vol] 24 U/L Normal <=34 [facility] Comment on above: Order Comment: 205 Performed By: #### L 100.4500, L500.4050, L501.5200, L100.0500, L501.5000, L501.6710, L501.2300, L3300.9900 ####[facility] [address] [place], [address] Serum or plasma albumin cherelle urement (mass/volume)Ordered By: Olya Piña on 08-28-2024 Albumin [Mass/Vol] 3.1 g/dL Low 3.4-4.8 [facility] Comment on above: Order Comment: 205 Performed By: #### L 100.4500, L500.4050, L501.5200, L100.0500, L501.5000, L501.6710, L501.2300, L3300.9900 ####[facility] [address] [place], [address] Serum or plasma albumin/glob ulin mass ratioOrdered By: Olya Piña on 08-28-2024 Albumin/Globulin [Mass ratio] 1.0 {ratio} Normal 0.9-2.4 [facility] Comment on above: Order Comment: 205 Performed By: #### L 100.4500, L500.4050, L501.5200, L100.0500, L501.5000, L501.6710, L501.2300, L3300.9900 ####[facility] [address] [place], [address] Serum or plasma alkaline piotr sphatase measurementOrdered By: Olya Piña on 08-28-2024 ALP [Catalytic activity/Vol] 134 U/L High 35-104 [facility] Serum or plasma calcium cherelle urement (mass/volume)Ordered By: Olya Piña on 08-28-2024 Calcium [Mass/Vol] 8.4 mg/dL Normal 7.6-11.0 [facility] Comment on above: Order Comment: 205 Performed By: #### L 100.4500, L500.4050, L501.5200, L100.0500, L501.5000, L501.6710, L501.2300, L3300.9900 ####[facility] [address] [place], [address] Serum or plasma urea nitroge n measurement (mass/volume)Ordered By: Olya Piña on 08-28-2024 Urea nitrogen [Mass/Vol] 33 mg/dL High 4-19 [facility] Comment on above: Order Comment: 205 Performed By: #### L 100.4500, L500.4050, L501.5200, L100.0500, L501.5000, L501.6710, L501.2300, L3300.9900 ####[facility] [address] [place], [address] Serum or plasma zinc measure ment (mass/volume)Ordered By: Olya Piña on 08-28-2024 Zinc [Mass/Vol] 41 ug/dL Low 44-115 [facility] Sodium levelOrdered By: Deisy Piña on 08-28-2024 Sodium [Moles/Vol] 135 mmol/L Normal 133-145 [facility] Comment on above: Order Comment: 205 Performed By: #### L 100.4500, L500.4050, L501.5200, L100.0500, L501.5000, L501.6710, L501.2300, L3300.9900 ####[facility] [address] [place], [address] Total proteinOrdered By: Em Piña on 08-28-2024 Protein [Mass/Vol] 6.0 g/dL 5.9-8.4 [facility] Triglycerideson 08-28-2024 Triglyceride [Mass/Vol] 93 mg/dL Normal [facility] Comment on above: Order Comment: 205 Result Comment: The drugs N-Acetylcysteine and Metamizole may falselydepress this assay.Normal range: <150 mg/dLBorderline High: 150-199 mg/dLHigh: 200-499 mg/dLVery High: >500 mg/dL Performed By: #### L 100.4500, L500.4050, L501.5200, L100.0500, L501.5000, L501.6710, L501.2300, L3300.9900 ####[facility] [address] [place], [place], [id number] White blood cell (WBC) count Ordered By: Olya Piña on 08-28-2024 WBC (Bld) [#/Vol] 7.7 10*3/uL Normal 4.4-11.0 [facility] Comment on above: Order Comment: 205 Performed By: #### L 100.4500, L500.4050, L501.5200, L100.0500, L501.5000, L501.6710, L501.2300, L3300.9900 ####[facility] [address] [place], [address] Anion gap in Serum or Plasma Ordered By: Olya Piña on 08-26-2024 Anion gap [Moles/Vol] 10 mmol/L 5-15 [facility] BUN/creatinine ratioOrdered By: Olya Piña on 08-26-2024 Urea nitrogen/Creatinine [Mass ratio] 53.6 mg/mg High 10-20 [facility] Bilirubin, totalOrdered By: Olya Piña on 08-26-2024 Bilirubin [Mass/Vol] 0.20 mg/dL 0.00-1.30 [facility] Carbon dioxide, total [Moles /volume] in Central venous bloodOrdered By: Olya Piña on 08-26-2024 CO2 [Moles/Vol] 21.2 mmol/L 21.0-32.0 [facility] Chloride assayOrdered By: Moe Piña on 08-26-2024 Chloride [Moles/Vol] 104 mmol/L 98-108 [facility] Comprehensive Metabolic Prof ilon 08-26-2024 Albumin [Mass/Vol] 3.0 g/dL Low 3.4-4.8 [facility] Comment on above: Performed By: #### L 501.5200, L500.4050 ####[facility] [address] [place], [address] Albumin/Globulin [Mass ratio] 0.9 {ratio} Normal 0.9-2.4 [facility] Comment on above: Performed By: #### L 501.5200, L500.4050 ####[facility] [address] [place], [address] ALK PHOS 155 U/L High 35-104 [facility] Comment on above: Performed By: #### L 501.5200, L500.4050 ####[facility] [address] [place], [address] ALT [Catalytic activity/Vol] 34 U/L Normal <=34 [facility] Comment on above: Performed By: #### L 501.5200, L500.4050 ####[facility] [address] [place], [address] AST [Catalytic activity/Vol] 49 U/L High <=31 [facility] Comment on above: Performed By: #### L 501.5200, L500.4050 ####[facility] [address] [place], [address] Bilirubin [Mass/Vol] 0.20 mg/dL Normal 0.00-1.30 [facility] Comment on above: Performed By: #### L 501.5200, L500.4050 ####[facility] [address] [place], [address] BUN/CRE 53.6 RATIO High 10-20 [facility] Comment on above: Performed By: #### L 501.5200, L500.4050 ####[facility] [address] [place], [address] Calcium [Mass/Vol] 8.4 mg/dL Normal 7.6-11.0 [facility] Comment on above: Performed By: #### L 501.5200, L500.4050 ####[facility] [address] [place], [address] Chloride [Moles/Vol] 104 mmol/L Normal 98-108 [facility] Comment on above: Performed By: #### L 501.5200, L500.4050 ####[facility] [address] [place], [address] CO2 [Moles/Vol] 21.2 mmol/L Normal 21.0-32.0 [facility] Comment on above: Performed By: #### L 501.5200, L500.4050 ####[facility] [address] [place], [address] Creatinine [Mass/Vol] 0.38 mg/dL Low 0.70-1.20 [facility] Comment on above: Performed By: #### L 501.5200, L500.4050 ####[facility] [address] [place], [address] GAP 10 Normal 5-15 [facility] Comment on above: Performed By: #### L 501.5200, L500.4050 ####[facility] [address] [place], [address] GFR/1.73 sq M.predicted among non-blacks MDRD (S/P/Bld) [Vol rate/Area] 108 mL/min/{1.73_m2} Normal >60 [facility] Comment on above: Result Comment: mL/m in/1.73m2 CKD-EPI Creatinine Equation (2020) Performed By: #### L 501.5200, L500.4050 ####[facility] [address] [place], [address] Globulin (S) [Mass/Vol] 3.3 g/dL Normal 2.2-4.2 [facility] Comment on above: Performed By: #### L 501.5200, L500.4050 ####[facility] [address] [place], [address] Glucose [Mass/Vol] 64 mg/dL Low 70-99 [facility] Comment on above: Performed By: #### L 501.5200, L500.4050 ####[facility] [address] [place], [address] Potassium [Moles/Vol] 4.2 mmol/L Normal 3.3-5.1 [facility] Comment on above: Performed By: #### L 501.5200, L500.4050 ####[facility] [address] [place], [address] Sodium [Moles/Vol] 134 mmol/L Normal 133-145 [facility] Comment on above: Performed By: #### L 501.5200, L500.4050 ####[facility] [address] [place], [address] T PROT 6.3 g/dL Normal 5.9-8.4 [facility] Comment on above: Performed By: #### L 501.5200, L500.4050 ####[facility] [address] [place], [address] Urea nitrogen [Mass/Vol] 21 mg/dL High 4-19 [facility] Comment on above: Performed By: #### L 501.5200, L500.4050 ####[facility] [address] [place], [place], [address] Glomerular filtration rate ( GFR) estimation/1.73 sq m using serum, plasma, or whole bOrdered By: Olya Piña on 08-26-2024 GFR/1.73 sq M.predicted among non-blacks MDRD (S/P/Bld) [Vol rate/Area] 108 mL/min/{1.73_m2} >60 [facility] Magnesiumon 08-26-2024 Magnesium [Mass/Vol] 2.2 mg/dL Normal 1.5-2.2 [facility] Comment on above: Performed By: #### L 501.5200, L500.4055 ####[facility] [address] [place], [address] Magnesium measurement (mass/ volume)Ordered By: Olya Piña on 08-26-2024 Magnesium (Unsp spec) [Mass/Vol] 2.2 mg/dL 1.5-2.2 [facility] No Panel InformationOrdered By: Olya Piña on 08-26-2024 49 U/L High <32 [facility] Potassium measurement (mass/ volume)Ordered By: Olya Piña on 08-26-2024 Potassium (Unsp spec) [Mass/Vol] 4.2 mmol/L 3.3-5.1 [facility] Serum creatinine measurement (mass/volume)Ordered By: Olya Piña on 08-26-2024 Creatinine [Mass/Vol] 0.38 mg/dL Low 0.70-1.20 [facility] Serum globulin measurementOr dered By: Olya Piña on 08-26-2024 Globulin (S) [Mass/Vol] 3.3 g/dL 2.2-4.2 [facility] Serum glucose measurement (m ass/volume)Ordered By: Olya Piña on 08-26-2024 Glucose [Mass/Vol] 64 mg/dL Low 70-99 [facility] Serum or plasma alanine juarez otransferase (ALT) measurementOrdered By: Olya Piña on 08-26-2024 ALT [Catalytic activity/Vol] 34 U/L <35 [facility] Serum or plasma albumin cherelle urement (mass/volume)Ordered By: Olya Piña on 08-26-2024 Albumin [Mass/Vol] 3.0 g/dL Low 3.4-4.8 [facility] Serum or plasma albumin/glob ulin mass ratioOrdered By: Olya Piña on 08-26-2024 Albumin/Globulin [Mass ratio] 0.9 {ratio} 0.9-2.4 [facility] Serum or plasma alkaline piotr sphatase measurementOrdered By: Olya Piña on 08-26-2024 ALP [Catalytic activity/Vol] 155 U/L High 35-104 [facility] Serum or plasma calcium cherelle urement (mass/volume)Ordered By: Olya Piña on 08-26-2024 Calcium [Mass/Vol] 8.4 mg/dL 7.6-11.0 [facility] Serum or plasma urea nitroge n measurement (mass/volume)Ordered By: Olya Piña on 08-26-2024 Urea nitrogen [Mass/Vol] 21 mg/dL High 4-19 [facility] Sodium levelOrdered By: Deisy Piña on 08-26-2024 Sodium [Moles/Vol] 134 mmol/L 133-145 [facility] Total proteinOrdered By: Em Piña on 08-26-2024 Protein [Mass/Vol] 6.3 g/dL 5.9-8.4 [facility] Anion gap in Serum or Plasma Ordered By: Olya Piña on 08-25-2024 Anion gap [Moles/Vol] 10 mmol/L 5-15 [facility] BUN/creatinine ratioOrdered By: Olya Piña on 08-25-2024 Urea nitrogen/Creatinine [Mass ratio] 48.9 mg/mg High 10-20 [facility] Bilirubin, totalOrdered By: Olya Piña on 08-25-2024 Bilirubin [Mass/Vol] 0.26 mg/dL 0.00-1.30 [facility] CBC-Complete Blood Cnt No Di ffon 08-25-2024 PATH REV Normal [facility] Comment on above: Result Comment: 1+ P OLYCHROMASIA3+ ANISOCYTOSIS1+ OVALOCYTES1+ TARGET CELLSMARKEDLY INCREASED PLATELETS Performed By: #### L 501.5200, L501.5000, L501.2300, L100.0500, L500.4050 ####[facility] [address] [place], [place], [address] Carbon dioxide, total [Moles /volume] in Central venous bloodOrdered By: Olya Piña on 08-25-2024 CO2 [Moles/Vol] 24.7 mmol/L 21.0-32.0 [facility] Chloride assayOrdered By: Moe Piña on 08-25-2024 Chloride [Moles/Vol] 102 mmol/L 98-108 [facility] Comprehensive Metabolic Prof ilon 08-25-2024 Glucose [Mass/Vol] 18 mg/dL Invalid Interpretation Code 70-99 [facility] Comment on above: Order Comment: ARACELI RNING Result Comment: Crit ical Result(s) Called at: by:??Results read back bysame.CRITICAL RESULT CALLED TO BTANNER BY ION GREEN. REPORTREAD BACK BY SAME.. 111108/25/24Critical Result(s) Called at: by:??Results read back bysame. AMENDED REPORT 08/25/24 1114 GLU previously reported as: 18 *L mg/dLCritical Result(s) Called at: by:??Results read back bysame.CRITICAL RESULT CALLED TO BTANNER BY ION GREEN. REPORTREAD BACK BY SAME.. 111108/25/24 Performed By: #### L 501.5200, L501.5000, L501.2300, L100.0500, L500.4050 ####[facility] [address] [place], [place], [id number] Erythrocyte distribution wid th ratioOrdered By: Olya Piña on 08-25-2024 Erythrocyte distribution width (RBC) [Ratio] TNP [facility] Glomerular filtration rate ( GFR) estimation/1.73 sq m using serum, plasma, or whole bOrdered By: Olya Piña on 08-25-2024 GFR/1.73 sq M.predicted among non-blacks MDRD (S/P/Bld) [Vol rate/Area] 110 mL/min/{1.73_m2} >60 [facility] Hematocrit Auto (Bld) [Volum e fraction]Ordered By: Olya Piña on 08-25-2024 Hematocrit (Bld) [Volume fraction] 29.5 % Low 37-47 [facility] Hemoglobin measurementOrdere d By: Olya Piña on 08-25-2024 Hemoglobin (Bld) [Mass/Vol] 8.6 g/dL Low 12.0-15.0 [facility] MCV (mean corpuscular volume ) determinationOrdered By: Olya Piña on 08-25-2024 MCV (RBC) [Entitic vol] 77.0 fL Low 81-99 [facility] Magnesiumon 08-25-2024 Magnesium [Mass/Vol] 2.3 mg/dL High 1.5-2.2 [facility] Comment on above: Performed By: #### L 501.5200, L501.5000, L501.2300, L100.0500, L500.4050 ####[facility] [address] [place], [address] Magnesium measurement (mass/ volume)Ordered By: Olya Piña on 08-25-2024 Magnesium (Unsp spec) [Mass/Vol] 2.3 mg/dL High 1.5-2.2 [facility] Mean corpuscular hemoglobin (MCH) determinationOrdered By: Oyla Piña on 08-25-2024 MCH (RBC) [Entitic mass] 22.5 pg Low 27.0-32.0 [facility] No Panel InformationOrdered By: Olya Piña on 08-25-2024 33 U/L High <32 [facility] Phosphoruson 08-25-2024 Phosphate [Mass/Vol] 2.7 mg/dL Normal 2.7-4.5 [facility] Comment on above: Performed By: #### L 501.5200, L501.5000, L501.2300, L100.0500, L500.4050 ####[facility] [address] [place], [address] Platelet countOrdered By: Moe Piña on 08-25-2024 Platelets (Bld) [#/Vol] 625 10*3/uL High 150-450 [facility] Potassium measurement (mass/ volume)Ordered By: Olya Piña on 08-25-2024 Potassium (Unsp spec) [Mass/Vol] 3.7 mmol/L 3.3-5.1 [facility] RBC Auto (Bld) [#/Vol]Ordere d By: Olya Piña on 08-25-2024 RBC (Bld) [#/Vol] 3.83 10*6/uL Low 4.2-5.4 [facility] Review by pathologistOrdered By: Olya Piña on 08-25-2024 Pathologist review Alexis (Unsp spec) [Interp] See comment [facility] Serum creatinine measurement (mass/volume)Ordered By: Olya Piña on 08-25-2024 Creatinine [Mass/Vol] 0.36 mg/dL Low 0.70-1.20 [facility] Serum globulin measurementOr dered By: Olya Piña on 08-25-2024 Globulin (S) [Mass/Vol] 3.7 g/dL 2.2-4.2 [facility] Serum glucose measurement (m ass/volume)Ordered By: Olya Piña on 08-25-2024 Glucose [Mass/Vol] 18 mg/dL Low 70-99 [facility] Serum or plasma alanine juarez otransferase (ALT) measurementOrdered By: Oyla Piña on 08-25-2024 ALT [Catalytic activity/Vol] 26 U/L <35 [facility] Serum or plasma albumin cherelle urement (mass/volume)Ordered By: Olya Piña on 08-25-2024 Albumin [Mass/Vol] 3.0 g/dL Low 3.4-4.8 [facility] Serum or plasma albumin/glob ulin mass ratioOrdered By: Olya Piña on 08-25-2024 Albumin/Globulin [Mass ratio] 0.8 {ratio} Low 0.9-2.4 [facility] Serum or plasma alkaline piotr sphatase measurementOrdered By: Olya Piña on 08-25-2024 ALP [Catalytic activity/Vol] 138 U/L High 35-104 [facility] Serum or plasma calcium cherelle urement (mass/volume)Ordered By: Olya Piña on 08-25-2024 Calcium [Mass/Vol] 8.8 mg/dL 7.6-11.0 [facility] Serum or plasma urea nitroge n measurement (mass/volume)Ordered By: Olya Piña on 08-25-2024 Urea nitrogen [Mass/Vol] 17 mg/dL 4-19 [facility] Sodium levelOrdered By: Deisy Piña on 08-25-2024 Sodium [Moles/Vol] 137 mmol/L 133-145 [facility] Total proteinOrdered By: Em Piña on 08-25-2024 Protein [Mass/Vol] 6.6 g/dL 5.9-8.4 [facility] Triglycerideson 08-25-2024 Triglyceride [Mass/Vol] 65 mg/dL Normal [facility] Comment on above: Result Comment: The drugs N-Acetylcysteine and Metamizole may falselydepress this assay.Normal range: <150 mg/dLBorderline High: 150-199 mg/dLHigh: 200-499 mg/dLVery High: >500 mg/dL Performed By: #### L 501.5200, L501.5000, L501.2300, L100.0500, L500.4050 ####[facility] [address] [place], [place], [id number] White blood cell (WBC) count Ordered By: Olya Piña on 08-25-2024 WBC (Bld) [#/Vol] 8.4 10*3/uL 4.4-11.0 [facility] Glucose Test strip manual (B ld) [Mass/Vol]on 08-24-2024 Glucose [Mass/Vol] 80 mg/dL Normal 74-99 [facility] Comment on above: Performed By: #### 8 9577-1 #### TONY TAFOYA ([id number]) [facility] ([facility]) [address] [place] [address] Glucose [Mass/Vol] 144 mg/dL High 74-99 [facility] Comment on above: Performed By: #### 8 9577-1 #### TONY TAFOYA ([id number]) [facility] ([facility]) [address] [place] [address] Basic metabolic 2000 panelon 08-23-2024 Anion gap [Moles/Vol] 9 mmol/L Low 10-20 [facility] Comment on above: Performed By: #### 8 9577-1 #### TONY TAFOAY ([id number]) [facility] ([facility]) [address] [place] [address] Calcium [Mass/Vol] 8.0 mg/dL Low 8.6-10.3 [facility] Comment on above: Performed By: #### 8 9577-1 #### TONY TAFOAY ([id number]) [facility] ([facility]) [address] [place] [address] Chloride [Moles/Vol] 100 mmol/L Normal 98-107 [facility] Comment on above: Performed By: #### 8 9577-1 #### TONY TAFOYA ([id number]) [facility] ([facility]) [address] [place] [address]22 CO2 [Moles/Vol] 26 mmol/L Normal 21-32 [facility] Comment on above: Performed By: #### 8 9577-1 #### TONY TAFOYA ([id number]) [facility] ([facility]) [address] [place] [address] Creatinine [Mass/Vol] 0.34 mg/dL Low 0.50-1.05 [facility] Comment on above: Performed By: #### 8 9577-1 #### TONY TAFOYA (05520) [facility] ([facility]) [address] [place] [address] GFR/1.73 sq M.predicted MDRD (S/P/Bld) [Vol rate/Area] mL/min/{1.73_m2} Normal >60 [facility] Comment on above: Result Comment: Calc ulations of estimated GFR are performed using the 2020 CKD-EPI Study Refit equation without the race variable for the IDMS-Traceable creatinine methods. https://jasn.asnjournals.org/content/early//ASN.20121 70768 Performed By: #### 8 9577-1 #### TONY TAFOYA ([id number]) [facility] ([facility]) [address] [place] [address] Glucose [Mass/Vol] 132 mg/dL High 74-99 [facility] Comment on above: Performed By: #### 8 9577-1 #### TONY TAFOYA (72729) [facility] ([facility]) [address] [place] [address] Potassium [Moles/Vol] 4.1 mmol/L Normal 3.5-5.3 [facility] Comment on above: Performed By: #### 8 9577-1 #### TONY TAFOYA (33610) [facility] ([facility]) [address] [place] [address] 46910 Sodium [Moles/Vol] 131 mmol/L Low 136-145 [facility] Comment on above: Performed By: #### 8 9577-1 #### TONY TAFOYA (13395) [facility] ([facility]) [address] [place] [address] 332[address] Urea nitrogen [Mass/Vol] 12 mg/dL Normal 6-23 [facility] Comment on above: Performed By: #### 8 9577-1 #### TONY TAFOYA ([id number]) [facility] ([facility]) [address] [place] [address]11[address] CBC panel Auto (Bld)on 08-23 Erythrocyte distribution width (RBC) [Ratio] Normal [facility] Comment on above: Result Comment: Not Measured Performed By: #### 8 9577-1 #### TONY TAFOYA (06994) [facility] ([facility]) [address] [place] [address] Hematocrit (Bld) [Volume fraction] 28.1 % Low 36.0-46.0 [facility] Comment on above: Performed By: #### 8 9577-1 #### TONY TAFOYA (91503) [facility] ([facility]) [address] [place] [address] Hemoglobin (Bld) [Mass/Vol] 8.2 g/dL Low 12.0-16.0 [facility] Comment on above: Performed By: #### 8 9577-1 #### TONY TAFOYA ([id number]) [facility] ([facility]) [address] [place] [address] 06204 MCH (RBC) [Entitic mass] 22.5 pg Low 26.0-34.0 [facility] Comment on above: Performed By: #### 8 9577-1 #### TONY TAFOYA ([id number]) [facility] ([facility]) [address] [place] [address] 14197 MCHC (RBC) [Mass/Vol] 29.2 g/dL Low 32.0-36.0 [facility] Comment on above: Performed By: #### 8 9577-1 #### TONY TAFOYA ([id number]) [facility] ([facility]) [address] [place] [address] 40025 MCV (RBC) [Entitic vol] 77 fL Low 80-100 [facility] Comment on above: Performed By: #### 8 9577-1 #### TONY TAFOYA ([id number]) [facility] ([facility]) [address] [place] [address] 16570 Nucleated RBC/100 WBC (Bld) [Ratio] 0.0 /100 WBCs Normal 0.0-0.0 [facility] Comment on above: Performed By: #### 8 9577-1 #### TONY TAFOYA ([id number]) [facility] ([facility]) [address] [place] [address] Platelets (Bld) [#/Vol] 441 x10*3/uL Normal 150-450 [facility] Comment on above: Performed By: #### 8 9577-1 #### TONY TAFOYA ([id number]) [facility] ([facility]) [address] [place] [address] RBC (Bld) [#/Vol] 3.65 x10*6/uL Low 4.00-5.20 [facility] Comment on above: Performed By: #### 8 9577-1 #### TONY TAFOYA ([id number]) [facility] ([facility]) [address] [place] [address] 30643 WBC (Bld) [#/Vol] 7.6 x10*3/uL Normal 4.4-11.3 [facility] Comment on above: Performed By: #### 8 9577-1 #### TONY TAFOYA ([id number]) [facility] ([facility]) [facility] [place] [address] Glucose Test strip manual (B ld) [Mass/Vol]on 08-23-2024 Glucose [Mass/Vol] 104 mg/dL High 74-99 [facility] Comment on above: Performed By: #### 8 9577-1 #### TONY TAFOYA ([id number]) [facility] ([facility]) [address] [place] [address] 49183 Glucose [Mass/Vol] 83 mg/dL Normal 74-99 [facility] Comment on above: Performed By: #### 8 9577-1 #### TONY TAFOYA ([id number]) [facility] ([facility]) [address] [place] [address] 61970 Glucose [Mass/Vol] 89 mg/dL Normal 74-99 [facility] Comment on above: Performed By: #### 8 9577-1 #### TONY TAFOYA ([id number]) [facility] ([facility]) [address] [place] [address] Glucose [Mass/Vol] 137 mg/dL High 74-99 [facility] Comment on above: Performed By: #### 8 9577-1 #### TONY TAFOYA ([id number]) [facility] ([facility]) [address] [place] [address] 10149 Basic metabolic 2000 panelon 08-22-2024 Anion gap [Moles/Vol] 9 mmol/L Low 10-20 [facility] Comment on above: Performed By: #### 8 9577-1 #### TONY TAFOYA ([id number]) [facility] ([facility]) [address] [place] [address] 28332 Calcium [Mass/Vol] 7.8 mg/dL Low 8.6-10.3 [facility] Comment on above: Performed By: #### 8 9577-1 #### TONY TAFOYA ([id number]) [facility] ([facility]) [address] [place] [address] 44569 Chloride [Moles/Vol] 102 mmol/L Normal 98-107 [facility] Comment on above: Performed By: #### 8 9577-1 #### TONY TAFOYA ([id number]) [facility] ([facility]) [address] [place] [address] 49463 CO2 [Moles/Vol] 26 mmol/L Normal 21-32 [facility] Comment on above: Performed By: #### 8 9577-1 #### TONY TAFOYA ([id number]) [facility] ([facility]) [address] [place] [address] 84263 Creatinine [Mass/Vol] 0.38 mg/dL Low 0.50-1.05 [facility] Comment on above: Performed By: #### 8 9577-1 #### TONY TAFOYA ([id number]) [facility] ([facility]) [address] [place] [address] 51984 GFR/1.73 sq M.predicted MDRD (S/P/Bld) [Vol rate/Area] mL/min/{1.73_m2} Normal >60 [facility] Comment on above: Result Comment: Calc ulations of estimated GFR are performed using the 2020 CKD-EPI Study Refit equation without the race variable for the IDMS-Traceable creatinine methods. https://jasn.asnjournals.org/content/early//ASN.61296 83439 Performed By: #### 8 9577-1 #### TONY TAFOYA ([id number]) [facility] ([facility]) [address] [place], [place] [address] Glucose [Mass/Vol] 146 mg/dL High 74-99 [facility] Comment on above: Performed By: #### 8 9577-1 #### TONY TAFOYA ([id number]) [facility] ([facility]) [address] [place] [address] 21830 Potassium [Moles/Vol] 4.1 mmol/L Normal 3.5-5.3 [facility] Comment on above: Performed By: #### 8 9577-1 #### TONY TAFOYA (25461) [facility] ([facility]) [address] [place] [address] 10540 Sodium [Moles/Vol] 133 mmol/L Low 136-145 [facility] Comment on above: Performed By: #### 8 9577-1 #### TONY TAFOYA (29284) [facility] ([facility]) [address] [place] [address] 77831 Urea nitrogen [Mass/Vol] 12 mg/dL Normal 6-23 [facility] Comment on above: Performed By: #### 8 9577-1 #### TONY TAFOYA ([id number]) [facility] ([facility]) [address] [place] [address] 84434 CBC panel Auto (Bld)on 08-22 Erythrocyte distribution width (RBC) [Ratio] Normal [facility] Comment on above: Result Comment: Not Measured Performed By: #### 8 9577-1 #### TONY TAFOYA (40605) [facility] ([facility]) [address] [place] [address] 16074 Hematocrit (Bld) [Volume fraction] 27.5 % Low 36.0-46.0 [facility] Comment on above: Performed By: #### 8 9577-1 #### TONY TAFOYA ([id number]) [facility] ([facility]) [address] [place] [address] 78975 Hemoglobin (Bld) [Mass/Vol] 7.8 g/dL Low 12.0-16.0 [facility] Comment on above: Performed By: #### 8 9577-1 #### TONY TAFOYA (26046) [facility] ([facility]) [address] [place] [address] 54444 MCH (RBC) [Entitic mass] 21.5 pg Low 26.0-34.0 [facility] Comment on above: Performed By: #### 8 9577-1 #### TONY TAFOYA (49698) [facility] ([facility]) [address] [place] [address] 58958 MCHC (RBC) [Mass/Vol] 28.4 g/dL Low 32.0-36.0 [facility] Comment on above: Performed By: #### 8 9577-1 #### TONY TAFOYA (30427) [facility] ([facility]) [address] [place] [address] 44811 MCV (RBC) [Entitic vol] 76 fL Low 80-100 [facility] Comment on above: Performed By: #### 8 9577-1 #### TONY TAFOYA ([id number]) [facility] ([facility]) [address] [place] [address] 66320 Nucleated RBC/100 WBC (Bld) [Ratio] 0.3 /100 WBCs High 0.0-0.0 [facility] Comment on above: Performed By: #### 8 9577-1 #### TONY TAFOYA (47403) [facility] ([facility]) [address] [place] [address] 01892 Platelets (Bld) [#/Vol] 405 x10*3/uL Normal 150-450 [facility] Comment on above: Performed By: #### 8 9577-1 #### TONY TAFOYA ([id number]) [facility] ([facility]) [address] [place] [address] 67827 RBC (Bld) [#/Vol] 3.63 x10*6/uL Low 4.00-5.20 [facility] Comment on above: Performed By: #### 8 9577-1 #### TONY TAFOYA (47654) [facility] ([facility]) [address] [place], [place] [address] WBC (Bld) [#/Vol] 7.7 x10*3/uL Normal 4.4-11.3 [facility] Comment on above: Performed By: #### 8 9577-1 #### TONY TAFOYA (69805) [facility] ([facility]) [address] [place] [address] Glucose Test strip manual (B ld) [Mass/Vol]on 08-22-2024 Glucose [Mass/Vol] 133 mg/dL High [address] [place] [address] Comment on above: Performed By: #### 8 9577-1 #### TONY TAFOYA ([id number]) [facility] ([facility]) [address] [place] [address] 62457 Glucose [Mass/Vol] 106 mg/dL High [address] [place] [address] Comment on above: Performed By: #### 8 9577-1 #### TONY TAFOYA ([id number]) [facility] ([facility]) [address] [place] [address] 07218 Glucose [Mass/Vol] 121 mg/dL High 7499 [facility] Comment on above: Performed By: #### 8 9577-1 #### TONY TAFOYA ([id number]) [facility] ([facility]) [address] [place] [address] 06663 Glucose [Mass/Vol] 137 mg/dL High 7499 [facility] Comment on above: Performed By: #### 8 9577-1 #### TONY TAFOYA ([id number]) [facility] ([facility]) [address] [place] [address] Basic metabolic 2000 panelon 08-21-2024 Anion gap [Moles/Vol] 10 mmol/L Normal 10-20 [facility] Comment on above: Performed By: #### 8 9577-1 #### TONY TAFOYA ([id number]) [facility] ([facility]) [address] [place] [address] 73520 Calcium [Mass/Vol] 7.8 mg/dL Low 8.6-10.3 [facility] Comment on above: Performed By: #### 8 9577-1 #### TONY TAFOYA (50921) [facility] ([facility]) [address] [place] [address] 05289 Chloride [Moles/Vol] 101 mmol/L Normal 98-107 [facility] Comment on above: Performed By: #### 8 9577-1 #### TONY TAFOYA ([id number]) [facility] ([facility]) [address] [place] [address] CO2 [Moles/Vol] 26 mmol/L Normal 21-32 [facility] Comment on above: Performed By: #### 8 9577-1 #### TONY TAFOYA ([id number]) [facility] ([facility]) [facility] [place] [address] Creatinine [Mass/Vol] 0.33 mg/dL Low 0.50-1.05 [facility] Comment on above: Performed By: #### 8 9577-1 #### TONY TAFOYA ([id number]) [facility] ([facility]) [facility] [place] [address] GFR/1.73 sq M.predicted MDRD (S/P/Bld) [Vol rate/Area] mL/min/{1.73_m2} Normal >60 [facility] Comment on above: Result Comment: Calc ulations of estimated GFR are performed using the 2020 CKD-EPI Study Refit equation without the race variable for the IDMS-Traceable creatinine methods. https://jasn.asnjournals.org/content/early//ASN.97372 94578 Performed By: #### 8 9577-1 #### TONY TAFOYA ([id number]) [facility] ([facility]) [address] [place] [address] Glucose [Mass/Vol] 112 mg/dL High 74-99 [facility] Comment on above: Performed By: #### 8 9577-1 #### TONY TAFOYA ([id number]) [facility] ([facility]) [address] [place] [address] 95363 Potassium [Moles/Vol] 4.0 mmol/L Normal 3.5-5.3 [facility] Comment on above: Performed By: #### 8 9577-1 #### TONY TAFOYA (51977) [facility] ([facility]) [address] [place] [address] 03462 Sodium [Moles/Vol] 133 mmol/L Low 136-145 [facility] Comment on above: Performed By: #### 8 9577-1 #### TONY TAFOYA (64028) [facility] ([facility]) [address] [place] [address] 42253 Urea nitrogen [Mass/Vol] 13 mg/dL Normal - [facility] Comment on above: Performed By: #### 8 9577-1 #### TONY TAFOYA ([id number]) [facility] ([facility]) [address] [place], [place] [address] CBC panel Auto (Bld)on 08-21 Erythrocyte distribution width (RBC) [Ratio] Normal [facility] Comment on above: Result Comment: Not Measured Performed By: #### 8 9577-1 #### TONY TAFOYA ([id number]) [facility] ([facility]) [address] [place] [address] 16752 Hematocrit (Bld) [Volume fraction] 27.1 % Low 36.0-46.0 [facility] Comment on above: Performed By: #### 8 9577-1 #### TONY TAFOYA (38942) [facility] ([facility]) [address] [place] [address] 98733 Hemoglobin (Bld) [Mass/Vol] 8.0 g/dL Low 12.0-16.0 [facility] Comment on above: Performed By: #### 8 9577-1 #### TONY TAFOYA (39159) [facility] ([facility]) [address] [place] [address] 27105 MCH (RBC) [Entitic mass] 21.7 pg Low 26.0-34.0 [facility] Comment on above: Performed By: #### 8 9577-1 #### TONY TAFOYA ([id number]) [facility] ([facility]) [address] [place] [address] 72714 MCHC (RBC) [Mass/Vol] 29.5 g/dL Low 32.0-36.0 [facility] Comment on above: Performed By: #### 8 9577-1 #### TONY TAFOYA ([id number]) [facility] ([facility]) [address] [place] [address] 10880 MCV (RBC) [Entitic vol] 73 fL Low 80-100 [facility] Comment on above: Performed By: #### 8 9577-1 #### TONY TAFOYA (28757) [facility] ([facility]) [address] [place] [address] 48707 Nucleated RBC/100 WBC (Bld) [Ratio] 0.3 /100 WBCs High 0.0-0.0 [facility] Comment on above: Performed By: #### 8 9577-1 #### TONY TAFOYA (08115) [facility] ([facility]) [address] [place] [address] 47557 Platelets (Bld) [#/Vol] 389 x10*3/uL Normal 150-450 [facility] Comment on above: Performed By: #### 8 9577-1 #### TONY TAFOYA ([id number]) [facility] ([facility]) [address] [place] [address] 46212 RBC (Bld) [#/Vol] 3.69 x10*6/uL Low 4.00-5.20 [facility] Comment on above: Performed By: #### 8 9577-1 #### TONY TAFOYA (55301) [facility] ([facility]) [address] [place] [address] 11374 WBC (Bld) [#/Vol] 7.7 x10*3/uL Normal 4.4-11.3 [facility] Comment on above: Performed By: #### 8 9577-1 #### TONY TAFOYA ([id number]) [facility] ([facility]) [address] [place] [address] Glucose Test strip manual (B ld) [Mass/Vol]on 08-21-2024 Glucose [Mass/Vol] 144 mg/dL High 74-99 [facility] Comment on above: Performed By: #### 8 9577-1 #### TONY TAFOYA (11705) [facility] ([facility]) [address] [place] [address] 71894 Glucose [Mass/Vol] 140 mg/dL High 74-99 [facility] Comment on above: Performed By: #### 8 9577-1 #### TONY TAFOYA (21934) [facility] ([facility]) [address] [place] [address] 74609 Glucose [Mass/Vol] 162 mg/dL High 74-99 [facility] Comment on above: Performed By: #### 8 9577-1 #### TONY TAFOYA (53500) [facility] ([facility]) [address] [place] [address] 30748 Glucose [Mass/Vol] 128 mg/dL High 74-99 [facility] Comment on above: Performed By: #### 8 9577-1 #### TONY TAFOYA ([id number]) [facility] ([facility]) [address] [place] [address] 49824 Vancomycinon 08-21-2024 Vancomycin [Mass/Vol] 26.0 ug/mL High 5.0-20.0 [facility] Comment on above: Order Comment: Less than 99th percentile of normal range cutoff- Female and children under 18 years old <14 ng/L; Male <21 ng/L: Negative Repeat testing should be performed if clinically indicated. Female and children under 18 years old 14-50 ng/L; Male 21-50 ng/L: Consistent with possible cardiac damage and possible increased clinical risk. Serial measurements may help to assess extent of myocardial damage. >50 ng/L: Consistent with cardiac damage, increased clinical risk and myocardial infarction. Serial measurements may help assess extent of myocardial damage. NOTE: Children less than 1 year old may have higher baseline troponin levels and results should be interpreted in conjunction with the overall clinical context. NOTE: Troponin I testing is performed using a different testing methodology at [facility] than at other [facility]. Direct result comparisons should only be made within the same method. Performed By: #### 8 9577-1 #### TONY TAFOYA ([id number]) [facility] ([facility]) [address] [place] [address] 88315 Basic metabolic 2000 panelon 08-20-2024 Anion gap [Moles/Vol] 8 mmol/L Low 10-20 [facility] Comment on above: Performed By: #### 8 9577-1 #### TONY TAFOYA ([id number]) [facility] ([facility]) [address] [place] [address] 01868 Calcium [Mass/Vol] 7.5 mg/dL Low 8.6-10.3 [facility] Comment on above: Performed By: #### 8 9577-1 #### TONY TAFOYA (59330) [facility] ([facility]) [address] [place] [address] 60579 Chloride [Moles/Vol] 99 mmol/L Normal 98-107 [facility] Comment on above: Result Comment: Conf irmed by repeat analysis Performed By: #### 8 9577-1 #### TONY TAFOYA ([id number]) [facility] ([facility]) [facility] [place] [address] CO2 [Moles/Vol] 27 mmol/L Normal 21-32 [facility] Comment on above: Result Comment: Conf irmed by repeat analysis Performed By: #### 8 9577-1 #### TONY TAFOYA ([id number]) [facility] ([facility]) [address] [place] [address] 06254 Creatinine [Mass/Vol] 0.29 mg/dL Low 0.50-1.05 [facility] Comment on above: Performed By: #### 8 9577-1 #### TONY TAFOYA (49342) [facility] ([facility]) [address] [place] [address] 53120 GFR/1.73 sq M.predicted MDRD (S/P/Bld) [Vol rate/Area] mL/min/{1.73_m2} Normal >60 [facility] Comment on above: Result Comment: Calc ulations of estimated GFR are performed using the 2020 CKD-EPI Study Refit equation without the race variable for the IDMS-Traceable creatinine methods. https://jasn.asnjournals.org/content/early/ASN.18847 45977 Performed By: #### 8 9577-1 #### TONY TAFOYA (43503) [facility] ([facility]) [address] [place] [address] 05488 Glucose [Mass/Vol] 136 mg/dL High 74-99 [facility] Comment on above: Performed By: #### 8 9577-1 #### TONY TAFOYA (31571) [facility] ([facility]) [address] [place] [address] 72250 Potassium [Moles/Vol] 3.8 mmol/L Normal 3.5-5.3 [facility] Comment on above: Result Comment: Conf irmed by repeat analysis Performed By: #### 8 9577-1 #### TONY TAFOYA (64293) [facility] ([facility]) [address] [place] [address] 19011 Sodium [Moles/Vol] 130 mmol/L Low 136-145 [facility] Comment on above: Result Comment: Conf irmed by repeat analysis Performed By: #### 8 9577-1 #### TONY TAFOYA (12274) [facility] ([facility]) [address] [place] [address] 70495 Urea nitrogen [Mass/Vol] 14 mg/dL Normal 11-20 [facility] Comment on above: Performed By: #### 8 9577-1 #### TONY TAFOYA (65636) [facility] ([facility]) [address] [place] [address] CBC panel Auto (Bld)on 08-20 Erythrocyte distribution width (RBC) [Ratio] 33.2 % High 11.5-14.5 [facility] Comment on above: Performed By: #### 8 9577-1 #### TONY TAFOYA ([id number]) [facility] ([facility]) [address] [place] [address] Hematocrit (Bld) [Volume fraction] 27.9 % Low 36.0-46.0 [facility] Comment on above: Performed By: #### 8 9577-1 #### TONY TAFOYA (13449) [facility] ([facility]) [address] [place] [address] Hemoglobin (Bld) [Mass/Vol] 8.4 g/dL Low 12.0-16.0 [facility] Comment on above: Performed By: #### 8 9577-1 #### TONY TAFOYA (88273) [facility] ([facility]) [address] [place] [address] 85880 MCH (RBC) [Entitic mass] 22.2 pg Low 26.0-34.0 [facility] Comment on above: Performed By: #### 8 9577-1 #### TONY TAFOYA (67002) [facility] ([facility]) [address] [place] [address] 52486 MCHC (RBC) [Mass/Vol] 30.1 g/dL Low 32.0-36.0 [facility] Comment on above: Performed By: #### 8 9577-1 #### TONY TAFOYA (43003) [facility] ([facility]) [address] [place] [address] MCV (RBC) [Entitic vol] 74 fL Low 80-100 [facility] Comment on above: Performed By: #### 8 9577-1 #### TONY TAFOYA ([id number]) [facility] ([facility]) [address] [place] [address] 52602 Nucleated RBC/100 WBC (Bld) [Ratio] 0.4 /100 WBCs High 0.0-0.0 [facility] Comment on above: Performed By: #### 8 9577-1 #### TONY TAFOYA ([id number]) [facility] ([facility]) [address] [place] [address] 66959 Platelets (Bld) [#/Vol] 433 x10*3/uL Normal 150-450 [facility] Comment on above: Performed By: #### 8 9577-1 #### TONY TAFOYA ([id number]) [facility] ([facility]) [address] [place] [address] 72250 RBC (Bld) [#/Vol] 3.79 x10*6/uL Low 4.00-5.20 [facility] Comment on above: Performed By: #### 8 9577-1 #### TONY TAFOYA ([id number]) [facility] ([facility]) [address] [place] [address] 66648 WBC (Bld) [#/Vol] 6.9 x10*3/uL Normal 4.4-11.3 [facility] Comment on above: Performed By: #### 8 9577-1 #### TONY TAFOYA ([id number]) [facility] ([facility]) [address] [place] [address] 25487 Glucose Test strip manual (B ld) [Mass/Vol]on 08-20-2024 Glucose [Mass/Vol] 163 mg/dL High 74-99 [facility] Comment on above: Performed By: #### 8 9577-1 #### TONY TAFOYA ([id number]) [facility] ([facility]) [address] [place] [address] 02887 Glucose [Mass/Vol] 121 mg/dL High 74-99 [facility] Comment on above: Performed By: #### 8 9577-1 #### TONY TAFOYA ([id number]) [facility] ([facility]) [address] [place] [address] Glucose [Mass/Vol] 120 mg/dL High 74-99 [facility] Comment on above: Performed By: #### 8 9577-1 #### TONY TAFOYA ([id number]) [facility] ([facility]) [address] [place] [address] Glucose [Mass/Vol] 151 mg/dL High 74-99 [facility] Comment on above: Performed By: #### 8 9577-1 #### TONY TAFOYA ([id number]) [facility] ([facility]) [address] [place] [address] Basic metabolic 2000 panelon 08-19-2024 Anion gap [Moles/Vol] 8 mmol/L Low 10-20 [facility] Comment on above: Performed By: #### 8 9577-1 #### TONY TAFOYA ([id number]) [facility] ([facility]) [address] [place] [address] Calcium [Mass/Vol] 7.4 mg/dL Low 8.6-10.3 [facility] Comment on above: Performed By: #### 8 9577-1 #### TONY TAFOYA ([id number]) [facility] ([facility]) [address] [place] [address] Chloride [Moles/Vol] 103 mmol/L Normal 98-107 [facility] Comment on above: Performed By: #### 8 9577-1 #### TONY TAFOYA ([id number]) [facility] ([facility]) [address] [place] [id number] CO2 [Moles/Vol] 29 mmol/L Normal 21-32 [facility] Comment on above: Performed By: #### 8 9577-1 #### TONY TAFOYA ([id number]) [facility] ([facility]) [address] [place] [address] Creatinine [Mass/Vol] 0.32 mg/dL Low 0.50-1.05 [facility] Comment on above: Performed By: #### 8 9577-1 #### TONY TAFOYA ([id number]) [facility] ([facility]) [address] [place] [address] 93448 GFR/1.73 sq M.predicted MDRD (S/P/Bld) [Vol rate/Area] mL/min/{1.73_m2} Normal >60 [facility] Comment on above: Result Comment: Calc ulations of estimated GFR are performed using the 2020 CKD-EPI Study Refit equation without the race variable for the IDMS-Traceable creatinine methods. https://jasn.asnjournals.org/content/early//ASN.37592 62997 Performed By: #### 8 9577-1 #### TONY TAFOYA ([id number]) [facility] ([facility]) [address] [place] [address] 87373 Glucose [Mass/Vol] 139 mg/dL High 74-99 [facility] Comment on above: Performed By: #### 8 9577-1 #### TONY TAFOYA ([id number]) [facility] ([facility]) [address] [place] [address] 19811 Potassium [Moles/Vol] 4.0 mmol/L Normal 3.5-5.3 [facility] Comment on above: Performed By: #### 8 9577-1 #### TONY TAFOYA ([id number]) [facility] ([facility]) [address] [place] [address] 44633 Sodium [Moles/Vol] 136 mmol/L Normal 136-145 [facility] Comment on above: Performed By: #### 8 9577-1 #### TONY TAFOYA ([id number]) [facility] ([facility]) [address] [place] [address] 19173 Urea nitrogen [Mass/Vol] 19 mg/dL Normal 6-23 [facility] Comment on above: Performed By: #### 8 9577-1 #### TONY TAFOYA ([id number]) [facility] ([facility]) [address] [place] [address] CBC panel Auto (Bld)on 08-19 Erythrocyte distribution width (RBC) [Ratio] 32.5 % High 11.5-14.5 [facility] Comment on above: Performed By: #### 8 9577-1 #### TONY TAFOYA ([id number]) [facility] ([facility]) [address] [place] [address] Hematocrit (Bld) [Volume fraction] 29.9 % Low 36.0-46.0 [facility] Comment on above: Performed By: #### 8 9577-1 #### TONY TAFOYA ([id number]) [facility] ([facility]) [address] [place] [address] Hemoglobin (Bld) [Mass/Vol] 9.2 g/dL Low 12.0-16.0 [facility] Comment on above: Performed By: #### 8 9577-1 #### TONY TAFOYA ([id number]) [facility] ([facility]) [address] [place] [address] MCH (RBC) [Entitic mass] 22.4 pg Low 26.0-34.0 [facility] Comment on above: Performed By: #### 8 9577-1 #### TONY TAFOYA ([id number]) [facility] ([facility]) [address] [place] [address] MCHC (RBC) [Mass/Vol] 30.8 g/dL Low 32.0-36.0 [facility] Comment on above: Performed By: #### 8 9577-1 #### TONY TAFOYA ([id number]) [facility] ([facility]) [address] [place] [address] MCV (RBC) [Entitic vol] 73 fL Low 80-100 [facility] Comment on above: Performed By: #### 8 9577-1 #### TONY TAFOYA ([id number]) [facility] ([facility]) [address] [place] [address] 49323 Nucleated RBC/100 WBC (Bld) [Ratio] 0.0 /100 WBCs Normal 0.0-0.0 [facility] Comment on above: Performed By: #### 8 9577-1 #### TONY TAFOYA ([id number]) [facility] ([facility]) [address] [place] [address] 31114 Platelets (Bld) [#/Vol] 429 x10*3/uL Normal 150-450 [facility] Comment on above: Performed By: #### 8 9577-1 #### TONY TAFOYA (65042) [facility] ([facility]) [address] [place] [address] 40492 RBC (Bld) [#/Vol] 4.11 x10*6/uL Normal 4.00-5.20 [facility] Comment on above: Performed By: #### 8 9577-1 #### TONY TAFOYA ([id number]) [facility] ([facility]) [address] [place] [address] 17911 WBC (Bld) [#/Vol] 7.4 x10*3/uL Normal 4.4-11.3 [facility] Comment on above: Performed By: #### 8 9577-1 #### TONY TAFOYA ([id number]) [facility] ([facility]) [address] [place] [address] 30981 Glucose Test strip manual (B ld) [Mass/Vol]on 08-19-2024 Glucose [Mass/Vol] 220 mg/dL High 74-99 [facility] Comment on above: Performed By: #### 8 9577-1 #### TONY TAFOYA (62002) [facility] ([facility]) [address] [place] [address] 52034 Glucose [Mass/Vol] 168 mg/dL High 74-99 [facility] Comment on above: Performed By: #### 8 9577-1 #### TONY TAFOYA (51769) [facility] ([facility]) [address] [place] [address] 77739 Glucose [Mass/Vol] 147 mg/dL High 74-99 [facility] Comment on above: Performed By: #### 8 9577-1 #### TONY TAFOYA ([id number]) [facility] ([facility]) [address] [place] [address] Glucose [Mass/Vol] 127 mg/dL High 74-99 [facility] Comment on above: Performed By: #### 8 9577-1 #### TONY TAFOYA (45048) [facility] ([facility]) [address] [place] [address] Vancomycinon 08-19-2024 Vancomycin [Mass/Vol] 27.6 ug/mL High 5.0-20.0 [facility] Comment on above: Order Comment: Less than 99th percentile of normal range cutoff- Female and children under 18 years old <14 ng/L; Male <21 ng/L: Negative Repeat testing should be performed if clinically indicated. Female and children under 18 years old 14-50 ng/L; Male 21-50 ng/L: Consistent with possible cardiac damage and possible increased clinical risk. Serial measurements may help to assess extent of myocardial damage. >50 ng/L: Consistent with cardiac damage, increased clinical risk and myocardial infarction. Serial measurements may help assess extent of myocardial damage. NOTE: Children less than 1 year old may have higher baseline troponin levels and results should be interpreted in conjunction with the overall clinical context. NOTE: Troponin I testing is performed using a different testing methodology at [facility] than at other [facility]. Direct result comparisons should only be made within the same method. Performed By: #### 8 9577-1 #### TONY TAFOYA ([id number]) [facility] ([facility]) [address] [place] [address] Basic metabolic 2000 panelon 08-18-2024 Anion gap [Moles/Vol] 11 mmol/L Normal [facility] Comment on above: Performed By: #### 8 9577-1 #### TONY TAFOYA ([id number]) [facility] ([facility]) [address] [place] [address] Calcium [Mass/Vol] 7.5 mg/dL Low 8.6-10.3 [facility] Comment on above: Performed By: #### 8 9577-1 #### TONY TAFOYA ([id number]) [facility] ([facility]) [facility] [place] [address] Chloride [Moles/Vol] 102 mmol/L Normal 98-107 [facility] Comment on above: Result Comment: Conf irmed by repeat analysis Performed By: #### 8 9577-1 #### TONY TAFOYA ([id number]) [facility] ([facility]) [address] [place] [address] CO2 [Moles/Vol] 26 mmol/L Normal 21-32 [facility] Comment on above: Result Comment: Conf irmed by repeat analysis Performed By: #### 8 9577-1 #### TONY TAFOYA (53769) [facility] ([facility]) [address] [place] [address] 53766 Creatinine [Mass/Vol] 0.43 mg/dL Low 0.50-1.05 [facility] Comment on above: Performed By: #### 8 9577-1 #### TONY TAFOYA ([id number]) [facility] ([facility]) [address] [place] [address] 48312 GFR/1.73 sq M.predicted MDRD (S/P/Bld) [Vol rate/Area] mL/min/{1.73_m2} Normal >60 [facility] Comment on above: Result Comment: Calc ulations of estimated GFR are performed using the 2020 CKD-EPI Study Refit equation without the race variable for the IDMS-Traceable creatinine methods. https://jasn.asnjournals.org/content//ASN.29379 76203 Performed By: #### 8 9577-1 #### TONY TAFOYA (45802) [facility] ([facility]) [facility] [place] [address] Glucose [Mass/Vol] 198 mg/dL High 74-99 [facility] Comment on above: Performed By: #### 8 9577-1 #### TONY TAFOYA (48222) [facility] ([facility]) [address] [place] [address] Potassium [Moles/Vol] 4.3 mmol/L Normal 3.5-5.3 [facility] Comment on above: Result Comment: Conf irmed by repeat analysis Performed By: #### 8 9577-1 #### TONY TAFOYA ([id number]) [facility] ([facility]) [address] [place] [address] Sodium [Moles/Vol] 135 mmol/L Low 136-145 [facility] Comment on above: Result Comment: Conf irmed by repeat analysis Performed By: #### 8 9577-1 #### TONY TAFOYA (22752) [facility] ([facility]) [address] [place] [address] Urea nitrogen [Mass/Vol] 13 mg/dL Normal 6-23 [facility] Comment on above: Performed By: #### 8 9577-1 #### TONY TAFOYA (22748) [facility] ([facility]) [address] [place] [address] CBC panel Auto (Bld)on 08-18 Erythrocyte distribution width (RBC) [Ratio] 32.6 % High 11.5-14.5 [facility] Comment on above: Performed By: #### 8 9577-1 #### TONY TAFOYA (18506) [facility] ([facility]) [address] [place] [address] Hematocrit (Bld) [Volume fraction] 25.5 % Low 36.0-46.0 [facility] Comment on above: Performed By: #### 8 9577-1 #### TONY TAFOYA (45863) [facility] ([facility]) [address] [place] [address] Hemoglobin (Bld) [Mass/Vol] 7.0 g/dL Low 12.0-16.0 [facility] Comment on above: Performed By: #### 8 9577-1 #### TONY TAFOYA (23027) [facility] ([facility]) [address] [place] [address] MCH (RBC) [Entitic mass] 19.1 pg Low 26.0-34.0 [facility] Comment on above: Performed By: #### 8 9577-1 #### TONY TAFOYA (98192) [facility] ([facility]) [address] [place] [address] 16525 MCHC (RBC) [Mass/Vol] 27.5 g/dL Low 32.0-36.0 [facility] Comment on above: Performed By: #### 8 9577-1 #### TONY TAFOYA ([id number]) [facility] ([facility]) [address] [place], [place] [address] MCV (RBC) [Entitic vol] 70 fL Low 80-100 [facility] Comment on above: Performed By: #### 8 9577-1 #### TONY TAFOYA (04748) [facility] ([facility]) [address] [place] [address] 62362 Nucleated RBC/100 WBC (Bld) [Ratio] 0.0 /100 WBCs Normal 0.0-0.0 [facility] Comment on above: Performed By: #### 8 9577-1 #### TONY TAFOYA (67244) [facility] ([facility]) [address] [place] [address] 74997 Platelets (Bld) [#/Vol] 329 x10*3/uL Normal 150-450 [facility] Comment on above: Performed By: #### 8 9577-1 #### TONY TAFOYA ([id number]) [facility] ([facility]) [address] [place] [address] 87759 RBC (Bld) [#/Vol] 3.66 x10*6/uL Low 4.00-5.20 [facility] Comment on above: Performed By: #### 8 9577-1 #### TONY TAFOYA ([id number]) [facility] ([facility]) [address] [place] [address] 61277 WBC (Bld) [#/Vol] 9.3 x10*3/uL Normal 4.4-11.3 [facility] Comment on above: Performed By: #### 8 9577-1 #### TONY TAFOYA (11203) [facility] ([facility]) [address] [place] [address] Glucose Test strip manual (B ld) [Mass/Vol]on 08-18-2024 Glucose [Mass/Vol] 127 mg/dL High [address] Comment on above: Performed By: #### 8 9577-1 #### TONY TAFOYA (61129) [facility] ([facility]) [address] [place] [address] 60261 Glucose [Mass/Vol] 121 mg/dL High [address] [place] [address] Comment on above: Performed By: #### 8 9577-1 #### TONY TAFOYA (46812) [facility] ([facility]) [address] [place] [address] 89451 Glucose [Mass/Vol] 164 mg/dL High [address] [place] [address] Comment on above: Performed By: #### 8 9577-1 #### TONY TAFOYA ([id number]) [facility] ([facility]) [address] [place] [address] 69031 Glucose [Mass/Vol] 200 mg/dL High [address] [place] [address] Comment on above: Performed By: #### 8 9577-1 #### TONY TAFOYA ([id number]) [facility] ([facility]) [address] [place] [address] 07277 Vancomycinon 08-18-2024 Vancomycin [Mass/Vol] 16.6 ug/mL Normal 5.0-20.0 [facility] Comment on above: Order Comment: Less than 99th percentile of normal range cutoff- Female and children under 18 years old <14 ng/L; Male <21 ng/L: Negative Repeat testing should be performed if clinically indicated. Female and children under 18 years old 14-50 ng/L; Male 21-50 ng/L: Consistent with possible cardiac damage and possible increased clinical risk. Serial measurements may help to assess extent of myocardial damage. >50 ng/L: Consistent with cardiac damage, increased clinical risk and myocardial infarction. Serial measurements may help assess extent of myocardial damage. NOTE: Children less than 1 year old may have higher baseline troponin levels and results should be interpreted in conjunction with the overall clinical context. NOTE: Troponin I testing is performed using a different testing methodology at [facility] than at other [facility]. Direct result comparisons should only be made within the same method. Performed By: #### 8 9577-1 #### TONY TAFOYA ([id number]) [facility] ([facility]) [address] [place] [address] 09751 Bacteria identifiedon 2024 Bacteria identified Cx Nom (Unsp spec) Test: Tissue/Wound Culture/Smear Specimen Source: Wound/Tissue Specimen Type: Tissue/Biopsy Specimen Date: 08/17/2024824 Result Date: 08/20/20241246 Result Status: Final result Abnormal: Yes Resulting Lab: [facility] [id number] [place] [address] CULTURE (4+) Abundant Mixed Gram-Positive and Gram-Negative Bacteria STAIN (1+) Rare Polymorphonuclear leukocytes (4+) Abundant Mixed Gram positive and Gram negative bacteria (1+) Rare Yeast Abnormal [facility] Comment on above: Performed By: #### 8 9577-1 #### TONY TAFOYA ([id number]) [facility] ([facility]) [address] [place] [address] 89415 Basic metabolic 2000 panelon 08-17-2024 Anion gap [Moles/Vol] 7 mmol/L Low 10-20 [facility] Comment on above: Performed By: #### 2 4321-2 ####TONY TAFOYA ([id number])[facility] ([facility])[address] [place] [address] 39989 Calcium [Mass/Vol] 7.3 mg/dL Low 8.6-10.3 [facility] Comment on above: Performed By: #### 2 4321-2 ####TONY TAFOYA ([id number])[facility] ([facility] [place] [address] Chloride [Moles/Vol] 101 mmol/L Normal 98-107 [facility] Comment on above: Performed By: #### 2 4321-2 ####TONY TAFOYA ([id number])[facility] ([facility])[address] [place] [address] 82462 CO2 [Moles/Vol] 28 mmol/L Normal 21-32 [facility] Comment on above: Performed By: #### 2 4321-2 ####TONY TAFOYA ([id number])[facility] ([facility])[address] [place] [address] 80659 Creatinine [Mass/Vol] 0.30 mg/dL Low 0.50-1.05 [facility] Comment on above: Performed By: #### 2 4321-2 ####TONY TAFOYA (59302)[facility] ([facility])[address] [place] [address] 98952 GFR/1.73 sq M.predicted MDRD (S/P/Bld) [Vol rate/Area] mL/min/{1.73_m2} Normal >60 [facility] Comment on above: Result Comment: Calc ulations of estimated GFR are performed using the 2020 CKD-EPI Study Refit equation without the race variable for the IDMS-Traceable creatinine methods. https://jasn.asnjournals.org/content/early//ASN.39813 37050 Performed By: #### 2 4321-2 ####TONY TAFOYA (19876)[facility] ([facility])[address] [place] [address] 98356 Glucose [Mass/Vol] 145 mg/dL High 74-99 [facility] Comment on above: Performed By: #### 2 4321-2 ####TONY TAFOYA (22658)[facility] ([facility])[address] [place] [address] 29779 Potassium [Moles/Vol] 3.7 mmol/L Normal 3.5-5.3 [facility] Comment on above: Performed By: #### 2 4321-2 ####TONY TAFOYA (57343)[facility] ([facility])[address] [place] [address] 89678 Sodium [Moles/Vol] 132 mmol/L Low 136-145 [facility] Comment on above: Performed By: #### 2 4321-2 ####TONY TAFOYA ([id number])[facility] ([facility])[address] [place] [address] 97757 Urea nitrogen [Mass/Vol] 10 mg/dL Normal 6-23 [facility] Comment on above: Performed By: #### 2 4321-2 ####TONY TAFOYA (54692)[facility] ([facility])[address] [place] [address] 71940 CBC panel Auto (Bld)on 08-17 Erythrocyte distribution width (RBC) [Ratio] 31.4 % High 11.5-14.5 [facility] Comment on above: Performed By: #### 5 8410-2 ####TONY TAFOYA (45647)[facility] ([facility])[address] [place] [address] 86142 Hematocrit (Bld) [Volume fraction] 27.3 % Low 36.0-46.0 [facility] Comment on above: Performed By: #### 5 8410-2 ####TONY TAFOYA (78773)[facility] ([facility])[address] [place] [address] 35906 Hemoglobin (Bld) [Mass/Vol] 8.0 g/dL Low 12.0-16.0 [facility] Comment on above: Performed By: #### 5 8410-2 ####TONY TAFOYA ([id number])[facility] ([facility])[address] [place] [address] 63466 MCH (RBC) [Entitic mass] 19.8 pg Low 26.0-34.0 [facility] Comment on above: Performed By: #### 5 8410-2 ####TONY TAFOYA (10906)[facility] ([facility])[address] [place] [address] 53640 MCHC (RBC) [Mass/Vol] 29.3 g/dL Low 32.0-36.0 [facility] Comment on above: Performed By: #### 5 8410-2 ####TONY TAFOYA ([id number])[facility] ([facility])[address] [place] [address] 26191 MCV (RBC) [Entitic vol] 68 fL Low 80-100 [facility] Comment on above: Performed By: #### 5 8410-2 ####TONY TAFOYA ([id number])[facility] ([facility])[address] [place], [place] [address] Nucleated RBC/100 WBC (Bld) [Ratio] 0.0 /100 WBCs Normal 0.0-0.0 [facility] Comment on above: Performed By: #### 5 8410-2 ####TONY TAFOYA ([id number])[facility] ([facility])[address] [place] [address] 38585 Platelets (Bld) [#/Vol] 337 x10*3/uL Normal 150-450 [facility] Comment on above: Performed By: #### 5 8410-2 ####TONY TAFOYA ([id number])[facility] ([facility])[address] [place] [address] 27285 RBC (Bld) [#/Vol] 4.04 x10*6/uL Normal 4.00-5.20 [facility] Comment on above: Performed By: #### 5 8410-2 ####TONY TAFOYA ([id number])[facility] ([facility])[address] [place] [address] 44056 WBC (Bld) [#/Vol] 7.4 x10*3/uL Normal 4.4-11.3 [facility] Comment on above: Performed By: #### 5 8410-2 ####TONY TAFOYA ([id number])[facility] ([facility])[address] [place] [address] [place] FLUORO IMAGES NO CHARGEon 08-17-2024 [place] FLUORO IMAGES NO CHARGE Interpreted By: Mazin Holt, STUDY: [place] FLUORO IMAGES NO CHARGE; 08/17/2024 8:40 am INDICATION: Signs/Symptoms:surgical use. COMPARISON: None. ACCESSION NUMBER(S): [id number] ORDERING CLINICIAN: LYNNETTE ALTAMIRANO TECHNIQUE: 6 spot fluoroscopic images of a foot as intraoperative procedure were submitted for interpretation. FINDINGS: These images demonstrate the patient to be status post transmetatarsal amputation of the foot. IMPRESSION: 1. Intraoperative fluoroscopy for localization purposes. MACRO: None Signed by: Mazin Holt 08/17/2024 11:26 AM Dictation workstation: [id number] [facility] Glucose Test strip manual (B ld) [Mass/Vol]on 08-17-2024 Glucose [Mass/Vol] 300 mg/dL High [address] [place] [address] Comment on above: Performed By: #### 8 9577-1 #### TONY TAFOYA ([id number]) [facility] ([facility]) [address] [place] [address] 89133 Glucose [Mass/Vol] 294 mg/dL High [address] [place] [address] Comment on above: Performed By: #### 2 341-6 ####TONY TAFOYA ([id number])[facility] ([facility])[address] [place] [address] 93717 Glucose [Mass/Vol] 312 mg/dL High [address] [place] [address] Comment on above: Performed By: #### 2 341-6 ####TONY TAFOYA ([id number])[facility] ([facility])[address] [place] [address] 15837 Glucose [Mass/Vol] 115 mg/dL High [address] [place] [address] Comment on above: Performed By: #### 2 341-6 ####TONY TAFOYA ([id number])[facility] ([facility])[address] [place], [place] [address] Surgical pathology studyon 0 08-17-2024 Surgical pathology study Pathology report.total SEE COMMENT Surgical Pathology Case: [id number] Authorizing Provider: Lynnette Altamirano DPM Collected: 08/17/2024 0824 Ordering Location: [facility] Received: 08/17/2024 0910 Center OR Pathologist: Colton Arroyo MD Specimen: FOOT AMPUTATION RIGHT, RIGHT FOOT SOFT TISSUE AND BONE Path report.final diagnosis SEE COMMENT A. RIGHT FOOT, TRANSMETATARSAL AMPUTATION: Necrosis of skin and soft tissue. Osteonecrosis and marrow space fibrosis. Laboratory comment By the signature on this report, the individual or group listed as making the Final Interpretation/Diagnosis certifies that they have reviewed this case. 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 The specimen measures 8.5 x 8.2 x 4.5 cm. Digits 1, 3 4 and 5 are present. Digit 2 has been previously amputated nails are present on all digits present. 5 bone margins are identified. The skin surface is green-maradiaga, blackened, mummified and sloughing. Board Runner sections are submitted in 6 cassettes following decalcification. 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 Female and children under 18 years old 14-50 ng/L; Male 21-50 ng/L: Consistent with possible cardiac damage and possible increased clinical risk. Serial measurements may help to assess extent of myocardial damage. >50 ng/L: Consistent with cardiac damage, increased clinical risk and myocardial infarction. Serial measurements may help assess extent of myocardial damage. NOTE: Children less than 1 year old may have higher baseline troponin levels and results should be interpreted in conjunction with the overall clinical context. NOTE: Troponin I testing is performed using a different testing methodology at [facility] than at other [facility]. Direct result comparisons should only be made within the same method. Basic metabolic 2000 panelon 08-16-2024 Anion gap [Moles/Vol] 10 mmol/L Normal 10-20 [facility] Comment on above: Performed By: #### 2 4321-2 ####TONY TAFOYA ([id number])[facility] ([facility])[address] [place] [address] 63736 Calcium [Mass/Vol] 7.4 mg/dL Low 8.6-10.3 [facility] Comment on above: Performed By: #### 2 4321-2 ####TONY TAFOYA ([id number])[facility] ([facility])[address] [place] [address] 67810 Chloride [Moles/Vol] 101 mmol/L Normal 98-107 [facility] Comment on above: Performed By: #### 2 4321-2 ####TONY TAFOYA ([id number])[facility] ([facility])[address] [place] [address] CO2 [Moles/Vol] 25 mmol/L Normal 21-32 [facility] Comment on above: Performed By: #### 2 4321-2 ####TONY TAFOYA ([id number])[facility] ([facility])[address] [place] [address] 55830 Creatinine [Mass/Vol] 0.32 mg/dL Low 0.50-1.05 [facility] Comment on above: Performed By: #### 2 4321-2 ####TONY TAFOYA ([id number])[facility] ([facility])[address] [place] [address] 70954 GFR/1.73 sq M.predicted MDRD (S/P/Bld) [Vol rate/Area] mL/min/{1.73_m2} Normal >60 [facility] Comment on above: Result Comment: Calc ulations of estimated GFR are performed using the 2020 CKD-EPI Study Refit equation without the race variable for the IDMS-Traceable creatinine methods. https://jasn.asnjournals.org/content//ASN.32872 11808 Performed By: #### 2 4321-2 ####TONY TAFOYA ([id number])[facility] ([facility])[address] [place] [address] 23788 Glucose [Mass/Vol] 156 mg/dL High 74-99 [facility] Comment on above: Performed By: #### 2 4321-2 ####TONY TAFOYA ([id number])[facility] ([facility])[address] [place] [address] 54247 Potassium [Moles/Vol] 3.8 mmol/L Normal 3.5-5.3 [facility] Comment on above: Performed By: #### 2 4321-2 ####TONY TAFOYA ([id number])[facility] ([facility])[address] [place] [address] 82484 Sodium [Moles/Vol] 132 mmol/L Low 136-145 [facility] Comment on above: Performed By: #### 2 4321-2 ####TONY TAFOYA ([id number])[facility] ([facility])[address] [place] [address] 40800 Urea nitrogen [Mass/Vol] 9 mg/dL Normal 6-23 [facility] Comment on above: Performed By: #### 2 4321-2 ####TONY TAFOYA ([id number])[facility] ([facility])[address] [place] [address] 63348 CBC panel Auto (Bld)on 08-16 Erythrocyte distribution width (RBC) [Ratio] 31.0 % High 11.5-14.5 [facility] Comment on above: Performed By: #### 5 8410-2 ####TONY TAFOYA ([id number])[facility] ([facility])[address] [place] [address] 62270 Hematocrit (Bld) [Volume fraction] 28.7 % Low 36.0-46.0 [facility] Comment on above: Performed By: #### 5 8410-2 ####TONY TAFOYA ([id number])[facility] ([facility])[address] [place] [address] 43801 Hemoglobin (Bld) [Mass/Vol] 8.3 g/dL Low 12.0-16.0 [facility] Comment on above: Performed By: #### 5 8410-2 ####TONY TAFOYA ([id number])[facility] ([facility])[address] [place] [address] 21819 MCH (RBC) [Entitic mass] 19.1 pg Low 26.0-34.0 [facility] Comment on above: Performed By: #### 5 8410-2 ####TONY TAFOYA ([id number])[facility] ([facility])[address] [place] [address] 93403 MCHC (RBC) [Mass/Vol] 28.9 g/dL Low 32.0-36.0 [facility] Comment on above: Performed By: #### 5 8410-2 ####TONY TAFOYA ([id number])[facility] ([facility])[address] [place] [address] 23438 MCV (RBC) [Entitic vol] 66 fL Low 80-100 [facility] Comment on above: Performed By: #### 5 8410-2 ####TONY TAFOYA ([id number])[facility] ([facility])[address] [place] [address] 55602 Nucleated RBC/100 WBC (Bld) [Ratio] 0.0 /100 WBCs Normal 0.0-0.0 [facility] Comment on above: Performed By: #### 5 8410-2 ####TONY TAFOYA ([id number])[facility] ([facility])[address] [place] [address] 61815 Platelets (Bld) [#/Vol] 365 x10*3/uL Normal 150-450 [facility] Comment on above: Performed By: #### 5 8410-2 ####TONY TAFOYA ([id number])[facility] ([facility])[address] [place] [address] 66531 RBC (Bld) [#/Vol] 4.35 x10*6/uL Normal 4.00-5.20 [facility] Comment on above: Performed By: #### 5 8410-2 ####TONY TAFOYA ([id number])[facility] ([facility])[address] [place] [address] 93836 WBC (Bld) [#/Vol] 8.1 x10*3/uL Normal 4.4-11.3 [facility] Comment on above: Performed By: #### 5 8410-2 ####TONY TAFOYA ([id number])[facility] ([facility])[address] [place] [address] Glucose Test strip manual (B ld) [Mass/Vol]on 08-16-2024 Glucose [Mass/Vol] 265 mg/dL High [address] [place] [address] Comment on above: Performed By: #### 2 341-6 ####TONY TAFOYA ([id number])[facility] ([facility])[address] [place] [address] 76799 Glucose [Mass/Vol] 109 mg/dL High [address] [place] [address] Comment on above: Performed By: #### 2 341-6 ####TONY TAFOYA ([id number])[facility] ([facility])[address] [place] [address] 31193 Glucose [Mass/Vol] 131 mg/dL High [address] [place] [address] Comment on above: Result Comment: RN N OTIFIED Performed By: #### 2 341-6 ####TONY TAFOYA ([id number])[facility] ([facility])[address] [place] [address] 06294 Glucose [Mass/Vol] 108 mg/dL High [address] [place] [address] Comment on above: Result Comment: RN N OTIFIED Performed By: #### 2 341-6 ####TONY TAFOYA ([id number])[facility] ([facility])[address] [place] [address] 86609 Basic metabolic 2000 panelon 08-15-2024 Anion gap [Moles/Vol] 9 mmol/L Low 10-20 [facility] Comment on above: Performed By: #### 2 4321-2 ####TONY TAFOYA ([id number])[facility] ([facility])[address] [place] [address] 46261 Calcium [Mass/Vol] 7.2 mg/dL Low 8.6-10.3 [facility] Comment on above: Performed By: #### 2 4321-2 ####TONY TAFOYA ([id number])[facility] ([facility])[address] [place] [address] 53880 Chloride [Moles/Vol] 102 mmol/L Normal 98-107 [facility] Comment on above: Performed By: #### 2 4321-2 ####TONY TAFOYA ([id number])[facility] ([facility])[address] [place] [address] 65394 CO2 [Moles/Vol] 26 mmol/L Normal 21-32 [facility] Comment on above: Performed By: #### 2 4321-2 ####TONY TAFOYA ([id number])[facility] ([facility])[address] [place] [address] 86667 Creatinine [Mass/Vol] 0.39 mg/dL Low 0.50-1.05 [facility] Comment on above: Performed By: #### 2 4321-2 ####TONY TAFOYA ([id number])[facility] ([facility])[address] [place] [address] 93251 GFR/1.73 sq M.predicted MDRD (S/P/Bld) [Vol rate/Area] mL/min/{1.73_m2} Normal >60 [facility] Comment on above: Result Comment: Calc ulations of estimated GFR are performed using the 2020 CKD-EPI Study Refit equation without the race variable for the IDMS-Traceable creatinine methods. https://jasn.asnjournals.org/content/early/ASN.05564 43226 Performed By: #### 2 4321-2 ####TONY TAFOYA ([id number])[facility] ([facility])[address] [place] [address] 18634 Glucose [Mass/Vol] 89 mg/dL Normal 74-99 [facility] Comment on above: Performed By: #### 2 4321-2 ####TONY TAFOYA ([id number])[facility] ([facility])[address] [place], [place] [address] Potassium [Moles/Vol] 3.9 mmol/L Normal 3.5-5.3 [facility] Comment on above: Performed By: #### 2 4321-2 ####TONY TAFOYA ([id number])[facility] ([facility])[address] [place] [address] Sodium [Moles/Vol] 133 mmol/L Low 136-145 [facility] Comment on above: Performed By: #### 2 4321-2 ####TONY TAFOYA ([id number])[facility] ([facility])[address] [place], [place] [address] Urea nitrogen [Mass/Vol] 9 mg/dL Normal 6-23 [facility] Comment on above: Performed By: #### 2 4321-2 ####TONY TAFOYA ([id number])[facility] ([facility])[address] [place], [place] [address] Blood type and Indirect anti body screen panel (Bld)on 08-15-2024 ABO group Nom (Bld) O Normal [facility] Comment on above: Performed By: #### 3 4532-2 ####TONY TAFOYA ([id number])[facility] ([facility])[address] [place], [place] [address] [place] Blood group antibody screen Ql Negative [facility] Comment on above: Performed By: #### 3 4532-2 ####TONY TAFOYA ([id number])[facility] ([facility])[address] [place], [place] [address] [place] D Ag Ql (Bld) Positive Normal [facility] Comment on above: Performed By: #### 3 4532-2 ####TONY TAFOYA ([id number])[facility] ([facility])[address] [place] [address] [place] CBC panel Auto (Bld)on 08-15 Erythrocyte distribution width (RBC) [Ratio] 30.5 % High 11.5-14.5 [facility] Comment on above: Performed By: #### 5 8410-2 ####TONY TAFOYA ([id number])[facility] ([facility])[address] [place] [address] Hematocrit (Bld) [Volume fraction] 29.6 % Low 36.0-46.0 [facility] Comment on above: Performed By: #### 5 8410-2 ####TONY TAFOYA ([id number])[facility] ([facility])[address] [place] [address] Hemoglobin (Bld) [Mass/Vol] 8.5 g/dL Low 12.0-16.0 [facility] Comment on above: Performed By: #### 5 8410-2 ####TONY TAFOYA ([id number])[facility] ([facility])[address] [place], [place] [address] MCH (RBC) [Entitic mass] 18.8 pg Low 26.0-34.0 [facility] Comment on above: Performed By: #### 5 8410-2 ####TONY TAFOYA ([id number])[facility] ([facility])[address] [place], [place] [address] MCHC (RBC) [Mass/Vol] 28.7 g/dL Low 32.0-36.0 [facility] Comment on above: Performed By: #### 5 8410-2 ####TONY TAFOYA ([id number])[facility] ([facility])[address] [place], [place] [address] MCV (RBC) [Entitic vol] 65 fL Low 80-100 [facility] Comment on above: Performed By: #### 5 8410-2 ####TONY TAFOYA ([id number])[facility] ([facility])[address] [place] [address] 61503 Nucleated RBC/100 WBC (Bld) [Ratio] 0.0 /100 WBCs Normal 0.0-0.0 [facility] Comment on above: Performed By: #### 5 8410-2 ####TONY TAFOYA ([id number])[facility] ([facility])[address] [place] [address] 73974 Platelets (Bld) [#/Vol] 340 x10*3/uL Normal 150-450 [facility] Comment on above: Performed By: #### 5 8410-2 ####TONY TAFOYA ([id number])[facility] ([facility])[address] [place] [address] 57692 RBC (Bld) [#/Vol] 4.53 x10*6/uL Normal 4.00-5.20 [facility] Comment on above: Performed By: #### 5 8410-2 ####TONY TAFOYA ([id number])[facility] ([facility])[address] [place] [address] 82546 WBC (Bld) [#/Vol] 7.4 x10*3/uL Normal 4.4-11.3 [facility] Comment on above: Performed By: #### 5 8410-2 ####TONY TAFOYA ([id number])[facility] ([facility])[address] [place] [address] 27036 Erythrocyte distribution width (RBC) [Ratio] 29.2 % High 11.5-14.5 [facility] Comment on above: Performed By: #### 5 8410-2 ####TONY TAFOYA ([id number])[facility] ([facility])[address] [place] [address] 38523 Hematocrit (Bld) [Volume fraction] 24.8 % Low 36.0-46.0 [facility] Comment on above: Performed By: #### 5 8410-2 ####TONY TAFOYA ([id number])[facility] ([facility])[address] [place] [address] 46023 Hemoglobin (Bld) [Mass/Vol] 6.7 g/dL Low 12.0-16.0 [facility] Comment on above: Performed By: #### 5 8410-2 ####TONY TAFOYA ([id number])[facility] ([facility])[address] [place] [address] 90415 MCH (RBC) [Entitic mass] 16.5 pg Low 26.0-34.0 [facility] Comment on above: Performed By: #### 5 8410-2 ####TONY TAFOYA ([id number])[facility] ([facility])[address] [place] [address] 04674 MCHC (RBC) [Mass/Vol] 27.0 g/dL Low 32.0-36.0 [facility] Comment on above: Performed By: #### 5 8410-2 ####TONY TAFOYA ([id number])[facility] ([facility])[address] [place] [address] 12555 MCV (RBC) [Entitic vol] 61 fL Low 80-100 [facility] Comment on above: Performed By: #### 5 8410-2 ####TONY TAFOYA ([id number])[facility] ([facility])[address] [place] [address] 73067 Nucleated RBC/100 WBC (Bld) [Ratio] 0.0 /100 WBCs Normal 0.0-0.0 [facility] Comment on above: Performed By: #### 5 8410-2 ####TONY TAFOYA ([id number])[facility] ([facility])[address] [place] [address] 09978 Platelets (Bld) [#/Vol] 368 x10*3/uL Normal 150-450 [facility] Comment on above: Performed By: #### 5 8410-2 ####TONY TAFOYA ([id number])[facility] ([facility])[address] [place] [address] 24957 RBC (Bld) [#/Vol] 4.05 x10*6/uL Normal 4.00-5.20 [facility] Comment on above: Performed By: #### 5 8410-2 ####TONY TAFOYA ([id number])[facility] ([facility])[address] [place] [address] 76433 WBC (Bld) [#/Vol] 7.8 x10*3/uL Normal 4.4-11.3 [facility] Comment on above: Performed By: #### 5 8410-2 ####TONY TAFOYA ([id number])[facility] ([facility])[address] [place] [address] 14025 Glucose Test strip manual (B ld) [Mass/Vol]on 08-15-2024 Glucose [Mass/Vol] 309 mg/dL High [address] [place] [address] Comment on above: Performed By: #### 2 341-6 ####TONY TAFOYA ([id number])[facility] ([facility])[address] [place] [address] 69021 Glucose [Mass/Vol] 327 mg/dL High [address] [place] [address] Comment on above: Performed By: #### 2 341-6 ####TONY TAFOYA ([id number])[facility] ([facility])[address] [place] [address] 90109 Glucose [Mass/Vol] 150 mg/dL High [address] [place] [address] Comment on above: Performed By: #### 2 341-6 ####TONY TAFOYA ([id number])[facility] ([facility])[address] [place] [address] 12844 Glucose [Mass/Vol] 72 mg/dL Low [address] [place] [address] Comment on above: Performed By: #### 2 341-6 ####TONY TAFOYA ([id number])[facility] ([facility])[address] [place] [address] 93396 Glucose [Mass/Vol] 62 mg/dL Low [address] Comment on above: Performed By: #### 2 341-6 ####TONY TAFOYA ([id number])[facility] ([facility])[address] [place] [address] Hemoglobin.gastrointestinal^ 1st specimenon 08-15-2024 Hemoglobin.gastrointes tinal spec 1 Ql (Stl) Positive Abnormal Negative [facility] Comment on above: Performed By: #### 1 4563-1 ####NOAM Urias ([id number])[facility] ([facility])[id number] [place] [address] VERAB/VERIFY ABORHon 025 ABO group Nom (Bld) O Normal [facility] Comment on above: Order Comment: Thi s is for confirming/verifying history of ABORh on file for transfusion of blood products. If this is not for transfusion, please order an ABO/RH [[id number]]. If you have any questions or unsure what to order, please call the blood bank. Performed By: #### V ERAB ####TONY TAFOYA ([id number])[facility] ([facility])[address] [place] [address] [place] D Ag Ql (Bld) Positive Normal [facility] Comment on above: Order Comment: Thi s is for confirming/verifying history of ABORh on file for transfusion of blood products. If this is not for transfusion, please order an ABO/RH [[id number]]. If you have any questions or unsure what to order, please call the blood bank. Performed By: #### V ERAB ####TONY TAFOYA ([id number])[facility] ([facility])[address] [place] [address] [place] Basic metabolic 2000 panelon 08-14-2024 Anion gap [Moles/Vol] 7 mmol/L Low 10-20 [facility] Comment on above: Performed By: #### 3 0934-4 #### TONY TAFOYA ([id number]) [facility] ([facility]) [address] [place] [address] Calcium [Mass/Vol] 7.9 mg/dL Low 8.6-10.3 [facility] Comment on above: Performed By: #### 3 0934-4 #### TONY TAFOYA ([id number]) [facility] ([facility]) [address] [place] [address] Chloride [Moles/Vol] 102 mmol/L Normal 98-107 [facility] Comment on above: Performed By: #### 3 0934-4 #### TONY TAFOYA ([id number]) [facility] ([facility]) [facility] [place] [address] CO2 [Moles/Vol] 31 mmol/L Normal 21-32 [facility] Comment on above: Performed By: #### 3 0934-4 #### TONY TAFOYA ([id number]) [facility] ([facility]) [address] [place] [address] 94064 Creatinine [Mass/Vol] 0.34 mg/dL Low 0.50-1.05 [facility] Comment on above: Performed By: #### 3 0934-4 #### TONY TAFOYA ([id number]) [facility] ([facility]) [address] [place] [address] 64690 GFR/1.73 sq M.predicted MDRD (S/P/Bld) [Vol rate/Area] mL/min/{1.73_m2} Normal >60 [facility] Comment on above: Result Comment: Calc ulations of estimated GFR are performed using the 2020 CKD-EPI Study Refit equation without the race variable for the IDMS-Traceable creatinine methods. https://jasn.asnjournals.org/content/early//ASN.33852 61398 Performed By: #### 3 0934-4 #### TONY TAFOYA ([id number]) [facility] ([facility]) [address] [place] [address] 64674 Glucose [Mass/Vol] 90 mg/dL Normal 74-99 [facility] Comment on above: Performed By: #### 3 0934-4 #### TONY TAFOYA ([id number]) [facility] ([facility]) [address] [place] [address] 63019 Potassium [Moles/Vol] 4.3 mmol/L Normal 3.5-5.3 [facility] Comment on above: Performed By: #### 3 0934-4 #### TONY TAFOYA ([id number]) [facility] ([facility]) [address] [place] [address] 08313 Sodium [Moles/Vol] 136 mmol/L Normal 136-145 [facility] Comment on above: Performed By: #### 3 34-4 #### TONY TAFOYA ([id number]) [facility] ([facility]) [address] [place] [address] 36911 Urea nitrogen [Mass/Vol] 11 mg/dL Normal 6-23 [facility] Comment on above: Performed By: #### 3 0934-4 #### TONY TAFOYA ([id number]) [facility] ([facility]) [address] [place] [address] 50051 CBC W Auto Differential pane l (Bld)on 08-14-2024 Basophils (Bld) [#/Vol] 0.09 x10*3/uL Normal 0.00-0.10 [facility] Comment on above: Performed By: #### 3 0934-4 #### TONY TAFOYA ([id number]) [facility] ([facility]) [address] [place] [address] 35386 Basophils/100 WBC (Bld) 1.3 % Normal 0.0-2.0 [facility] Comment on above: Performed By: #### 3 0934-4 #### TONY TAFOYA ([id number]) [facility] ([facility]) [address] [place] [address] 87692 Eosinophils (Bld) [#/Vol] 0.32 x10*3/uL Normal 0.00-0.70 [facility] Comment on above: Performed By: #### 3 0934-4 #### TONY TAFOYA ([id number]) [facility] ([facility]) [address] [place] [address] 71320 Eosinophils/100 WBC (Bld) 4.5 % Normal 0.0-6.0 [facility] Comment on above: Performed By: #### 3 0934-4 #### TONY TAFOYA ([id number]) [facility] ([facility]) [address] [place] [address] Erythrocyte distribution width (RBC) [Ratio] 29.0 % High 11.5-14.5 [facility] Comment on above: Performed By: #### 3 0934-4 #### TONY TAFOYA ([id number]) [facility] ([facility]) [address] [place] [address] Hematocrit (Bld) [Volume fraction] 28.0 % Low 36.0-46.0 [facility] Comment on above: Performed By: #### 3 34-4 #### TONY TAFOYA ([id number]) [facility] ([facility]) [address] [place] [address] Hemoglobin (Bld) [Mass/Vol] 7.5 g/dL Low 12.0-16.0 [facility] Comment on above: Performed By: #### 3 34-4 #### TONY TAFOYA ([id number]) [facility] ([facility]) [address] [place] [address] Immature granulocytes (Bld) [#/Vol] 0.04 x10*3/uL Normal 0.00-0.70 [facility] Comment on above: Performed By: #### 3 0934-4 #### TONY TAFOYA ([id number]) [facility] ([facility]) [address] [place], [place] [address] Immature granulocytes/100 WBC (Bld) 0.6 % Normal 0.0-0.9 [facility] Comment on above: Result Comment: Gianna ture Granulocyte Count (IG) includes promyelocytes, myelocytes and metamyelocytes but does not include bands. Percent differential counts (%) should be interpreted in the context of the absolute cell counts (cells/UL). Performed By: #### 3 0934-4 #### TONY TAFOYA ([id number]) [facility] ([facility]) [address] [place], [place] [address] Lymphocytes (Bld) [#/Vol] 0.80 x10*3/uL Low 1.20-4.80 [facility] Comment on above: Performed By: #### 3 34-4 #### TONY TAFOYA ([id number]) [facility] ([facility]) [address] [place] [phone] Lymphocytes/100 WBC (Bld) 11.3 % Normal 13.0-44.0 [facility] Comment on above: Performed By: #### 3 34-4 #### TONY TAFOYA ([id number]) [facility] ([facility]) [address] [place] [address] MCH (RBC) [Entitic mass] 16.5 pg Low 26.0-34.0 [facility] Comment on above: Performed By: #### 3 34-4 #### TONY TAFOYA ([id number]) [facility] ([facility]) [address] [place] [phone] MCHC (RBC) [Mass/Vol] 26.8 g/dL Low 32.0-36.0 [facility] Comment on above: Performed By: #### 3 34-4 #### TONY TAFOYA ([id number]) [facility] ([facility]) [address] [place] [address]45 MCV (RBC) [Entitic vol] 62 fL Low 80-100 [facility] Comment on above: Performed By: #### 3 34-4 #### TONY TAFOYA ([id number]) [facility] ([facility]) [address] [place] [address]27[address] Monocytes (Bld) [#/Vol] 0.67 x10*3/uL Normal 0.10-1.00 [facility] Comment on above: Performed By: #### 3 34-4 #### TONY TAFOYA ([id number]) [facility] ([facility]) [address] [place] [address] 90270 Monocytes/100 WBC (Bld) 9.4 % Normal 2.0-10.0 [facility] Comment on above: Performed By: #### 3 0934-4 #### TONY TAFOYA ([id number]) [facility] ([facility]) [address] [place] [address] Neutrophils (Bld) [#/Vol] 5.19 x10*3/uL Normal 1.20-7.70 [facility] Comment on above: Result Comment: Perc ent differential counts (%) should be interpreted in the context of the absolute cell counts (cells/uL). Performed By: #### 3 0934-4 #### TONY TAFOYA ([id number]) [facility] ([facility]) [address] [place] [address] 84108 Neutrophils/100 WBC (Bld) 72.9 % Normal 40.0-80.0 [facility] Comment on above: Performed By: #### 3 0934-4 #### TONY TAFOYA ([id number]) [facility] ([facility]) [address] [place] [address] 95406 Nucleated RBC/100 WBC (Bld) [Ratio] 0.0 /100 WBCs Normal 0.0-0.0 [facility] Comment on above: Performed By: #### 3 0934-4 #### TONY TAFOYA ([id number]) [facility] ([facility]) [address] [place] [address] 92661 Platelets (Bld) [#/Vol] 418 x10*3/uL Normal 150-450 [facility] Comment on above: Performed By: #### 3 0934-4 #### TONY TAFOYA ([id number]) [facility] ([facility]) [address] [place] [address] 86935 RBC (Bld) [#/Vol] 4.54 x10*6/uL Normal 4.00-5.20 [facility] Comment on above: Performed By: #### 3 0934-4 #### TONY TAFOYA ([id number]) [facility] ([facility]) [address] [place] [address] 46910 WBC (Bld) [#/Vol] 7.1 x10*3/uL Normal 4.4-11.3 [facility] Comment on above: Performed By: #### 3 0934-4 #### TONY TAFOYA ([id number]) [facility] ([facility]) [facility] [place] [address] Glucose Test strip manual (B ld) [Mass/Vol]on 08-14-2024 Glucose [Mass/Vol] 147 mg/dL High 74-99 [facility] Comment on above: Performed By: #### 2 341-6 ####TONY TAFOYA ([id number])[facility] ([facility])[address] [place] [address] 91715 Glucose [Mass/Vol] 119 mg/dL High 74-99 [facility] Comment on above: Performed By: #### 2 341-6 ####TONY TAFOYA ([id number])[facility] ([facility])[address] [place] [address] 16658 Glucose [Mass/Vol] 92 mg/dL Normal 74-99 [facility] Comment on above: Performed By: #### 2 341-6 ####TONY TAFOYA ([id number])[facility] ([facility])[address] [place] [address] 70282 Glucose [Mass/Vol] 230 mg/dL High 74-99 [facility] Comment on above: Performed By: #### 2 341-6 ####TONY TAFOYA ([id number])[facility] ([facility])[address] [place] [address] 03237 Glucose [Mass/Vol] 66 mg/dL Low 74-99 [facility] Comment on above: Performed By: #### 3 0934-4 #### TONY TAFOYA ([id number]) [facility] ([facility]) [address] [place] [address] 13674 Lipid 1996 panelon 5 Cholesterol [Mass/Vol] 115 mg/dL Normal 0-199 [facility] Comment on above: Result Comment: Age Desirable Borderline High High 0-19 Y 0 - 169 170 - 199 >/= 200 20-24 Y 0 - 189 190 - 224 >/= 225 >24 Y 0 - 199 200 - 239 >/= 240 All ranges are based on fasting samples. Specific therapeutic targets will vary based on patient-specific cardiac risk. Pediatric guidelines reference:Pediatrics 2011, 128(S5).Adult guidelines reference: NCEP ATPIII Guidelines,JARED 2001, 258:2486-97 Venipuncture immediately after or during the administration of Metamizole may lead to falsely low results. Testing should be performed immediately prior to Metamizole dosing. Performed By: #### 2 4331-1 ####TONY TAFOYA ([id number])[facility] ([facility] [place] [address] Cholesterol in HDL [Mass/Vol] 44.0 mg/dL Normal [facility] Comment on above: Result Comment: Age Very Low Low Normal High 0-19 Y < 35 < 40 40-45 ---- 20-24 Y ---- < 40 >45 ---- >24 Y ---- < 40 40-60 >60 Performed By: #### 2 4331-1 ####TONY TAFOYA ([id number])[facility] ([facility] [place] [address] Cholesterol in LDL [Mass/Vol] 52 mg/dL Normal <=99 [facility] Comment on above: Result Comment: Near Borderline AGE Desirable Optimal High High Very High 0-19 Y 0 - 109 --- 110-129 >/= 130 ---- 20-24 Y 0 - 119 --- 120-159 >/= 160 ---- >24 Y 0 - 99 100-129 130-159 160-189 >/=190 Performed By: #### 2 4331-1 ####TONY TAFOYA ([id number])[facility] ([facility] [place] [address] Cholesterol in VLDL [Mass/Vol] 19 mg/dL Normal 0-40 [facility] Comment on above: Performed By: #### 2 4331-1 ####TONY TAFOYA ([id number])[facility] ([facility] [place] [address] CHOLESTEROL/HDL RATIO 2.6 Normal [facility] Comment on above: Result Comment: Ref Values Desirable < 3.4 High Risk > 5.0 Performed By: #### 2 4331-1 ####TONY TAFOYA ([id number])[facility] ([facility])[address] [place] [address] 16461 NON HDL CHOLESTEROL 71 mg/dL Normal 0-149 [facility] Comment on above: Result Comment: Age Desirable Borderline High High Very High 0-19 Y 0 - 119 120 - 144 >/= 145 >/= 160 20-24 Y 0 - 149 150 - 189 >/= 190 ---- >24 Y 30 mg/dL above LDL Cholesterol goal Performed By: #### 2 4331-1 ####TONY TAFOYA ([id number])[facility] ([facility])[address] [place], [place] [address] Triglyceride [Mass/Vol] 97 mg/dL Normal 0-149 [facility] Comment on above: Result Comment: Age Desirable Borderline High Very High SEX:B mg/dL mg/dL mg/dL mg/dL <=14D 86-277 ---- ---- ---- 15D-365D 55-277 ---- ---- ---- 1Y-9Y 0-74 75-99 >=100 ---- 10Y-19Y 0-89 90-129 >=130 ---- 20Y-24Y 0-114 115-149 >=150 ---- >= 25Y 0-149 150-199 200-499 >=500 Venipuncture immediately after or during the administration of Metamizole may lead to falsely low results. Testing should be performed immediately prior to Metamizole dosing. Performed By: #### 2 4331-1 ####TONY TAFOYA ([id number])[facility] ([facility])[address] [place] [address] 21345 Magnesiumon 08-14-2024 Magnesium [Mass/Vol] 2.20 mg/dL Normal 1.60-2.40 [facility] Comment on above: Performed By: #### 3 0934-4 #### TONY TAFOYA ([id number]) [facility] ([facility]) [address] [place], [place] [address] Phosphateon 08-14-2024 Phosphate [Mass/Vol] 3.4 mg/dL Normal 2.5-4.9 [facility] Comment on above: Result Comment: The performance characteristics of phosphorus testing in heparinized plasma have been validated by the individual laboratory site where testing is performed. Testing on heparinized plasma is not approved by the FDA; however, such approval is not necessary. Performed By: #### 3 0934-4 #### JIMENEZ MICHELET ([id number]) [facility] ([facility]) [address] [place], [place] [address] [facility] LOWER EXTREMITY LEIGH ANN RIAL DUPLEX BILATERALon 08-14-2024 [facility] US LOWER EXTREMITY [place] [address] [phone], Vascular Lab Report [facility] US LOWER EXTREMITY ARTERIAL DUPLEX BILATERAL Patient Name: YOKO Wilson Physician: [id number] Alyx Sullivan MD Study Date: 08/14/2024 Ordering Provider: [id number] NUSRAT PLASCENCIA MRN/PID: [id number] Fellow: Technologist: Violet Lord RVT/ Date of /Age: 1 1955 Technologist 2: years Gender: F Admission Status: Inpatient Location Performed: [facility] Diagnosis/ICD: Peripheral vascular disease, unspecified-I73.9 CPT Codes: 10061 Peripheral artery Lower arterial Duplex complete CONCLUSIONS: Bilateral Lower Arterial: Technically limited exam due to patients contracted legs. Limited study performed per ordering doctor to evaluate inflow bilaterally. Right Lower Arterial: No evidence of hemodynamically significant stenosis found in the right lower extremity. Patent EIA, STEAM ENGINEER and proximal SFA. 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 Monophasic flow seen of distal SFA and popliteal artery, likely from a collateral from the profunda artery which is patent with multiphasic flow. Monophasic flow seen within proximal STAGECRAFT PROFESSOR and Fleiz A. Imaging & Doppler Findings: Right Left PSV PSV 78 cm/s EIA 0 cm/s 72 cm/s STEAM ENGINEER 0 cm/s 34 cm/s Profunda Proximal 119 cm/s 43 cm/s SFA Proximal 0 cm/s SFA Mid 0 cm/s SFA Distal 57 cm/s Popliteal 34 cm/s SAMUEL Proximal 21 cm/s Peroneal Proximal 8 cm/s STAGECRAFT PROFESSOR Proximal 19 cm/s [id number] Alyx Sullivan MD Final Normal [facility] Basic metabolic 2000 panelon 08-13-2024 Anion gap [Moles/Vol] 8 mmol/L Normal [facility] Comment on above: Performed By: #### 3 040-3 #### TONY TAFOYA ([id number]) [facility] ([facility]) [address] [place] [address] 82826 Calcium [Mass/Vol] 7.2 mg/dL Low 8.6-10.3 [facility] Comment on above: Performed By: #### 3 040-3 #### TONY TAFOYA ([id number]) [facility] ([facility]) [address] [place] [address] 22913 Chloride [Moles/Vol] 105 mmol/L Normal 98-107 [facility] Comment on above: Performed By: #### 3 040-3 #### TONY TAFOYA ([id number]) [facility] ([facility]) [facility] [place] [address] CO2 [Moles/Vol] 29 mmol/L Normal 21-32 [facility] Comment on above: Performed By: #### 3 040-3 #### TONY TAFOYA ([id number]) [facility] ([facility]) [facility] [place] [address] Creatinine [Mass/Vol] 0.34 mg/dL Low 0.50-1.05 [facility] Comment on above: Performed By: #### 3 040-3 #### TONY TAFOYA ([id number]) [facility] ([facility]) [facility] [place] [address] GFR/1.73 sq M.predicted MDRD (S/P/Bld) [Vol rate/Area] mL/min/{1.73_m2} Normal >60 [facility] Comment on above: Result Comment: Calc ulations of estimated GFR are performed using the 2020 CKD-EPI Study Refit equation without the race variable for the IDMS-Traceable creatinine methods. https://jasn.asnjournals.org/content//ASN.83416 84092 Performed By: #### 3 040-3 #### TONY TAFOYA ([id number]) [facility] ([facility]) [address] [place] [address] 43253 Glucose [Mass/Vol] 78 mg/dL Normal 74-99 [facility] Comment on above: Performed By: #### 3 040-3 #### TONY TAFOYA ([id number]) [facility] ([facility]) [address] [place] [address] 36416 Potassium [Moles/Vol] 5.1 mmol/L Normal 3.5-5.3 [facility] Comment on above: Performed By: #### 3 040-3 #### TONY TAFOYA ([id number]) [facility] ([facility]) [address] [place] [address] 95031 Sodium [Moles/Vol] 137 mmol/L Normal 136-145 [facility] Comment on above: Performed By: #### 3 040-3 #### TONY TAFOYA ([id number]) [facility] ([facility]) [address] [place] [address] 61733 Urea nitrogen [Mass/Vol] 12 mg/dL Normal 6-23 [facility] Comment on above: Performed By: #### 3 040-3 #### TONY TAFOYA ([id number]) [facility] ([facility]) [address] [place] [address] 73488 CBC W Auto Differential pane l (Bld)on 08-13-2024 Basophils (Bld) [#/Vol] 0.06 x10*3/uL Normal 0.00-0.10 [facility] Comment on above: Performed By: #### 3 040-3 #### TONY TAFOYA ([id number]) [facility] ([facility]) [address] [place] [address] 31549 Basophils/100 WBC (Bld) 0.9 % Normal 0.0-2.0 [facility] Comment on above: Performed By: #### 3 040-3 #### TONY TAFOYA ([id number]) [facility] ([facility]) [address] [place] [address] 83284 Eosinophils (Bld) [#/Vol] 0.20 x10*3/uL Normal 0.00-0.70 [facility] Comment on above: Performed By: #### 3 040-3 #### TONY TAFOYA ([id number]) [facility] ([facility]) [address] [place] [address] 62721 Eosinophils/100 WBC (Bld) 2.9 % Normal 0.0-6.0 [facility] Comment on above: Performed By: #### 3 040-3 #### TONY TAFOYA ([id number]) [facility] ([facility]) [address] [place] [address] 74203 Erythrocyte distribution width (RBC) [Ratio] 28.4 % High 11.5-14.5 [facility] Comment on above: Performed By: #### 3 040-3 #### TONY TAFOYA ([id number]) [facility] ([facility]) [address] [place] [address] 41420 Hematocrit (Bld) [Volume fraction] 26.9 % Low 36.0-46.0 [facility] Comment on above: Performed By: #### 3 040-3 #### TONY TAFOYA ([id number]) [facility] ([facility]) [address] [place] [address] 39022 Hemoglobin (Bld) [Mass/Vol] 7.0 g/dL Low 12.0-16.0 [facility] Comment on above: Performed By: #### 3 040-3 #### TONY TAFOYA ([id number]) [facility] ([facility]) [address] [place] [address] 37209 Immature granulocytes (Bld) [#/Vol] 0.05 x10*3/uL Normal 0.00-0.70 [facility] Comment on above: Performed By: #### 3 040-3 #### TONY TAFOYA ([id number]) [facility] ([facility]) [address] [place] [address] 39900 Immature granulocytes/100 WBC (Bld) 0.7 % Normal 0.0-0.9 [facility] Comment on above: Result Comment: Gianna ture Granulocyte Count (IG) includes promyelocytes, myelocytes and metamyelocytes but does not include bands. Percent differential counts (%) should be interpreted in the context of the absolute cell counts (cells/UL). Performed By: #### 3 040-3 #### TONY TAFOYA ([id number]) [facility] ([facility]) [address] [place] [address] Lymphocytes (Bld) [#/Vol] 0.84 x10*3/uL Low 1.20-4.80 [facility] Comment on above: Performed By: #### 3 040-3 #### TONY TAFOYA ([id number]) [facility] ([facility]) [address] [place] [address] 48297 Lymphocytes/100 WBC (Bld) 12.1 % Normal 13.0-44.0 [facility] Comment on above: Performed By: #### 3 040-3 #### TONY TAFOYA ([id number]) [facility] ([facility]) [address] [place] [address] MCH (RBC) [Entitic mass] 16.0 pg Low 26.0-34.0 [facility] Comment on above: Performed By: #### 3 040-3 #### TONY TAFOYA ([id number]) [facility] ([facility]) [address] [place] [address] 71727 MCHC (RBC) [Mass/Vol] 26.0 g/dL Low 32.0-36.0 [facility] Comment on above: Performed By: #### 3 040-3 #### TONY TAFOYA ([id number]) [facility] ([facility]) [address] [place] [address] MCV (RBC) [Entitic vol] 62 fL Low 80-100 [facility] Comment on above: Performed By: #### 3 040-3 #### TONY TAFOYA ([id number]) [facility] ([facility]) [address] [place] [address] 39404 Monocytes (Bld) [#/Vol] 0.75 x10*3/uL Normal 0.10-1.00 [facility] Comment on above: Performed By: #### 3 040-3 #### TONY TAFOYA ([id number]) [facility] ([facility]) [address] [place] [address] 27795 Monocytes/100 WBC (Bld) 10.8 % Normal 2.0-10.0 [facility] Comment on above: Performed By: #### 3 040-3 #### TONY TAFOYA ([id number]) [facility] ([facility]) [address] [place] [address] 44571 Neutrophils (Bld) [#/Vol] 5.02 x10*3/uL Normal 1.20-7.70 [facility] Comment on above: Result Comment: Perc ent differential counts (%) should be interpreted in the context of the absolute cell counts (cells/uL). Performed By: #### 3 040-3 #### TONY TAFOYA ([id number]) [facility] ([facility]) [address] [place] [address] 92144 Neutrophils/100 WBC (Bld) 72.6 % Normal 40.0-80.0 [facility] Comment on above: Performed By: #### 3 040-3 #### TONY TAFOYA ([id number]) [facility] ([facility]) [address] [place] [address] 59652 Nucleated RBC/100 WBC (Bld) [Ratio] 0.0 /100 WBCs Normal 0.0-0.0 [facility] Comment on above: Performed By: #### 3 040-3 #### TONY TAFOYA ([id number]) [facility] ([facility]) [address] [place] [address] 94082 Platelets (Bld) [#/Vol] 335 x10*3/uL Normal 150-450 [facility] Comment on above: Performed By: #### 3 040-3 #### TONY TAFOYA ([id number]) [facility] ([facility]) [address] [place] [address] 67837 RBC (Bld) [#/Vol] 4.37 x10*6/uL Normal 4.00-5.20 [facility] Comment on above: Performed By: #### 3 040-3 #### TONY TAFOYA ([id number]) [facility] ([facility]) [address] [place] [address] 48116 WBC (Bld) [#/Vol] 6.9 x10*3/uL Normal 4.4-11.3 [facility] Comment on above: Performed By: #### 3 040-3 #### TONY TAFOYA ([id number]) [facility] ([facility]) [address] [place] [address] 03696 Glucose Test strip manual (B ld) [Mass/Vol]on 08-13-2024 Glucose [Mass/Vol] 126 mg/dL High 74-99 [facility] Comment on above: Performed By: #### 3 0934-4 #### TONY TAFOYA ([id number]) [facility] ([facility]) [address] [place] [address] 27532 Glucose [Mass/Vol] 78 mg/dL Normal 74-99 [facility] Comment on above: Performed By: #### 3 0934-4 #### TONY TAFOYA ([id number]) [facility] ([facility]) [address] [place] [address] 76977 Glucose [Mass/Vol] 132 mg/dL High 74-99 [facility] Comment on above: Performed By: #### 3 0934-4 #### TONY TAFOYA ([id number]) [facility] ([facility]) [address] [place] [address] 90003 Glucose [Mass/Vol] 112 mg/dL High 74-99 [facility] Comment on above: Performed By: #### 3 040-3 #### TONY TAFOYA ([id number]) [facility] ([facility]) [address] [place] [address] 08642 Glucose [Mass/Vol] 61 mg/dL Low 74-99 [facility] Comment on above: Result Comment: ASIA OROPEZA Performed By: #### 3 040-3 #### TONY TAFOYA ([id number]) [facility] ([facility]) [address] [place] [address] 52821 Magnesiumon 08-13-2024 Magnesium [Mass/Vol] 2.39 mg/dL Normal 1.60-2.40 [facility] Comment on above: Performed By: #### 3 0934-4 #### OTNY TAFOYA ([id number]) [facility] ([facility]) [address] [place] [address] Phosphateon 08-13-2024 Phosphate [Mass/Vol] 3.6 mg/dL Normal 2.5-4.9 [facility] Comment on above: Result Comment: The performance characteristics of phosphorus testing in heparinized plasma have been validated by the individual laboratory site where testing is performed. Testing on heparinized plasma is not approved by the FDA; however, such approval is not necessary. Performed By: #### 3 0934-4 #### TONY TAFOYA ([id number]) [facility] ([facility]) [address] [place] [address] Urinalysis complete panel (U )on 08-13-2024 Appearance (U) Clear Normal Clear [facility] Comment on above: Performed By: #### 3 040-3 #### TONY TAFOYA ([id number]) [facility] ([facility]) [address] [place] [address] 31982 Bilirubin (U) [Mass/Vol] Negative Normal NEGATIVE [facility] Comment on above: Performed By: #### 3 040-3 #### TONY TAFOYA ([id number]) [facility] ([facility]) [address] [place], [place] [address] Color (U) Light-Yellow Normal Light-Yellow , Yellow, Dark-Yellow [facility] Comment on above: Performed By: #### 3 040-3 #### TONY TAFOYA ([id number]) [facility] ([facility]) [address] [place] [address] 00100 Glucose Auto test strip (U) [Mass/Vol] Normal Normal Normal [facility] Comment on above: Performed By: #### 3 040-3 #### TONY TAFOYA ([id number]) [facility] ([facility]) [address] [place] [address] 67983 Ketones (U) [Mass/Vol] Negative Normal NEGATIVE [facility] Comment on above: Performed By: #### 3 040-3 #### TONY TAFOYA ([id number]) [facility] ([facility]) [address] [place], [place] [address] Leukocyte esterase Auto test strip Ql (U) 500 Aba/uL Abnormal NEGATIVE [facility] Comment on above: Performed By: #### 3 040-3 #### TONY TAFOYA ([id number]) [facility] ([facility]) [address] [place] [address] 46954 Nitrite Auto test strip Ql (U) Negative Normal NEGATIVE [facility] Comment on above: Performed By: #### 3 040-3 #### TONY TAFOYA ([id number]) [facility] ([facility]) [address] [place] [address] 40065 pH (U) 8.0 [pH] Normal 5.0, 5.5, 6.0, 6.5, 7.0, 7.5, 8.0 [facility] Comment on above: Performed By: #### 3 040-3 #### TONY TAFOYA ([id number]) [facility] ([facility]) [address] [place] [address] 59893 Protein (U) [Mass/Vol] Negative Normal NEGAT ALVARO, 10 (TRACE), 20 (TRACE) [facility] Comment on above: Performed By: #### 3 040-3 #### TONY TAFOYA ([id number]) [facility] ([facility]) [address] [place] [address] 08269 RBC (U) [#/Vol] 0.03 (TRACE) Abnormal NEGATIVE [facility] Comment on above: Performed By: #### 3 040-3 #### TONY TAFOYA ([id number]) [facility] ([facility]) [address] [place] [address] Specific gravity (U) [Rel density] 1.014 Normal 1.005-1.035 [facility] Comment on above: Performed By: #### 3 040-3 #### TONY TAFOYA ([id number]) [facility] ([facility]) [address] [place] [address] Urobilinogen (U) [Mass/Vol] Normal Normal Normal [facility] Comment on above: Performed By: #### 3 040-3 #### TONY TAFOYA ([id number]) [facility] ([facility]) [address] [place] [address] Urinalysis microscopic panel Auto Ql (U)on 08-13-2024 Bacteria Auto (Urine sed) [#/Area] 1+ /HPF Abnormal NONE SEEN [facility] Comment on above: Performed By: #### 3 040-3 #### TONY TAFOYA ([id number]) [facility] ([facility]) [address] [place] [address] Epithelial cells.squamous Auto (Urine sed) [#/Area] 1-9 (SPARSE) Normal Reference range not established. [facility] Comment on above: Performed By: #### 3 040-3 #### TONY TAFOYA ([id number]) [facility] ([facility]) [address] [place] [address] Mucus Auto (Urine sed) [#/Area] FEW Normal Reference range not established. [facility] Comment on above: Performed By: #### 3 040-3 #### TONY TAFOYA ([id number]) [facility] ([facility]) [address] [place] [address] RBC Auto (Urine sed) [#/Area] 1-2 Normal NONE, 1-2, 3-5 [facility] Comment on above: Performed By: #### 3 040-3 #### TONY TAFOYA ([id number]) [facility] ([facility]) [facility] [place] [address] WBC Auto (Urine sed) [#/Area] 21-50 Abnormal 1-5, NONE [facility] Comment on above: Performed By: #### 3 040-3 #### TONY TAFOYA ([id number]) [facility] ([facility]) [address] [place] [address] Yeast.budding Computer assisted (U) [#/Area] PRESENT Abnormal NONE [facility] Comment on above: Performed By: #### 3 040-3 #### TONY TAFOYA ([id number]) [facility] ([facility]) [address] [place] [address] Vancomycinon 08-13-2024 Vancomycin [Mass/Vol] 25.7 ug/mL High 5.0-20.0 [facility] Comment on above: Order Comment: Venip uncture immediately after or during the administration of Metamizole may lead to falsely low results. Testing should be performed immediately prior to Metamizole dosing. Performed By: #### 3 040-3 #### TONY TAFOYA ([id number]) [facility] ([facility]) [address] [place] [address] Basic metabolic 2000 panelon 08-12-2024 Anion gap [Moles/Vol] 10 mmol/L Normal 10-20 [facility] Comment on above: Performed By: #### 2 4323-8 #### TONY TAFOYA ([id number]) [facility] ([facility]) [address] [place] [address] Calcium [Mass/Vol] 7.3 mg/dL Low 8.6-10.3 [facility] Comment on above: Performed By: #### 2 4323-8 #### TONY TAFOYA ([id number]) [facility] ([facility]) [address] [place] [address] Chloride [Moles/Vol] 99 mmol/L Normal 98-107 [facility] Comment on above: Performed By: #### 2 4323-8 #### TONY TAFOYA ([id number]) [facility] ([facility]) [address] [place] [address] CO2 [Moles/Vol] 30 mmol/L Normal 21-32 [facility] Comment on above: Performed By: #### 2 4323-8 #### TONY TAFOYA ([id number]) [facility] ([facility]) [address] [place] [address] 36660 Creatinine [Mass/Vol] 0.37 mg/dL Low 0.50-1.05 [facility] Comment on above: Performed By: #### 2 4323-8 #### TONY TAFOYA ([id number]) [facility] ([facility]) [address] [place] [address]115 GFR/1.73 sq M.predicted MDRD (S/P/Bld) [Vol rate/Area] mL/min/{1.73_m2} Normal >60 [facility] Comment on above: Result Comment: Calc ulations of estimated GFR are performed using the 2020 CKD-EPI Study Refit equation without the race variable for the IDMS-Traceable creatinine methods. https://jasn.asnjournals.org/content//ASN.72523 75285 Performed By: #### 2 4323-8 #### TONY TAFOYA ([id number]) [facility] ([facility]) [address] [place] [address] 85986 Glucose [Mass/Vol] 120 mg/dL High 74-99 [facility] Comment on above: Performed By: #### 2 4323-8 #### TONY TAFOYA ([id number]) [facility] ([facility]) [address] [place] [address] 08133 Potassium [Moles/Vol] 3.5 mmol/L Normal 3.5-5.3 [facility] Comment on above: Performed By: #### 2 4323-8 #### TONY TAFOYA ([id number]) [facility] ([facility]) [facility] [place] [address] Sodium [Moles/Vol] 135 mmol/L Low 136-145 [facility] Comment on above: Performed By: #### 2 4323-8 #### TONY TAFOYA ([id number]) [facility] ([facility]) [address] [place] [address] 57853 Urea nitrogen [Mass/Vol] 8 mg/dL Normal 6-23 [facility] Comment on above: Performed By: #### 2 432-8 #### TONY TAFOYA ([id number]) [facility] ([facility]) [address] [place] [address] 02594 CBC W Auto Differential pane l (Bld)on 08-12-2024 Basophils (Bld) [#/Vol] 0.06 x10*3/uL Normal 0.00-0.10 [facility] Comment on above: Performed By: #### 2 432-8 #### TONY TAFOYA ([id number]) [facility] ([facility]) [address] [place] [address] 91388 Basophils/100 WBC (Bld) 0.7 % Normal 0.0-2.0 [facility] Comment on above: Performed By: #### 2 4322-8 #### TONY TAFOYA ([id number]) [facility] ([facility]) [address] [place] [address] 91186 Eosinophils (Bld) [#/Vol] 0.11 x10*3/uL Normal 0.00-0.70 [facility] Comment on above: Performed By: #### 2 432-8 #### TONY TAFOYA ([id number]) [facility] ([facility]) [address] [place] [address] 80463 Eosinophils/100 WBC (Bld) 1.3 % Normal 0.0-6.0 [facility] Comment on above: Performed By: #### 2 432-8 #### TONY TAFOYA ([id number]) [facility] ([facility]) [address] [place] [address] 51800 Erythrocyte distribution width (RBC) [Ratio] 27.5 % High 11.5-14.5 [facility] Comment on above: Performed By: #### 2 432-8 #### TONY TAFOYA ([id number]) [facility] ([facility]) [address] [place] [address] 79510 Hematocrit (Bld) [Volume fraction] 26.4 % Low 36.0-46.0 [facility] Comment on above: Performed By: #### 2 4323-8 #### TONY TAFOYA ([id number]) [facility] ([facility]) [address] [place] [address] 29140 Hemoglobin (Bld) [Mass/Vol] 7.1 g/dL Low 12.0-16.0 [facility] Comment on above: Performed By: #### 2 4323-8 #### TONY TAFOYA ([id number]) [facility] ([facility]) [address] [place] [address] 74541 Immature granulocytes (Bld) [#/Vol] 0.07 x10*3/uL Normal 0.00-0.70 [facility] Comment on above: Performed By: #### 2 4323-8 #### TONY TAFOYA ([id number]) [facility] ([facility]) [address] [place] [address] 99102 Immature granulocytes/100 WBC (Bld) 0.8 % Normal 0.0-0.9 [facility] Comment on above: Result Comment: Gianna ture Granulocyte Count (IG) includes promyelocytes, myelocytes and metamyelocytes but does not include bands. Percent differential counts (%) should be interpreted in the context of the absolute cell counts (cells/UL). Performed By: #### 2 4323-8 #### TONY TAFOYA ([id number]) [facility] ([facility]) [address] [place] [address] 77250 Lymphocytes (Bld) [#/Vol] 0.62 x10*3/uL Low 1.20-4.80 [facility] Comment on above: Performed By: #### 2 4323-8 #### TONY TAFOYA ([id number]) [facility] ([facility]) [address] [place] [address] 56990 Lymphocytes/100 WBC (Bld) 7.0 % Normal 13.0-44.0 [facility] Comment on above: Performed By: #### 2 4323-8 #### TONY TAFOYA ([id number]) [facility] ([facility]) [address] [place] [address] 13156 MCH (RBC) [Entitic mass] 16.2 pg Low 26.0-34.0 [facility] Comment on above: Performed By: #### 2 4323-8 #### TONY TAFOYA ([id number]) [facility] ([facility]) [address] [place] [address] 31732 MCHC (RBC) [Mass/Vol] 26.9 g/dL Low 32.0-36.0 [facility] Comment on above: Performed By: #### 2 432-8 #### TONY TAFOYA ([id number]) [facility] ([facility]) [address] [place] [address] 88623 MCV (RBC) [Entitic vol] 60 fL Low 80-100 [facility] Comment on above: Performed By: #### 2 4323-8 #### TONY TAFOYA ([id number]) [facility] ([facility]) [address] [place] [address] 58631 Monocytes (Bld) [#/Vol] 0.77 x10*3/uL Normal 0.10-1.00 [facility] Comment on above: Performed By: #### 2 4323-8 #### TONY TAFOYA ([id number]) [facility] ([facility]) [address] [place] [address] 22304 Monocytes/100 WBC (Bld) 8.8 % Normal 2.0-10.0 [facility] Comment on above: Performed By: #### 2 4323-8 #### TONY TAFOYA ([id number]) [facility] ([facility]) [address] [place] [address] 38563 Neutrophils (Bld) [#/Vol] 7.17 x10*3/uL Normal 1.20-7.70 [facility] Comment on above: Result Comment: Perc ent differential counts (%) should be interpreted in the context of the absolute cell counts (cells/uL). Performed By: #### 2 4323-8 #### TONY TAFOYA ([id number]) [facility] ([facility]) [address] [place] [address] 94559 Neutrophils/100 WBC (Bld) 81.4 % Normal 40.0-80.0 [facility] Comment on above: Performed By: #### 2 4323-8 #### TONY TAFOYA ([id number]) [facility] ([facility]) [address] [place] [address] 89995 Nucleated RBC/100 WBC (Bld) [Ratio] 0.0 /100 WBCs Normal 0.0-0.0 [facility] Comment on above: Performed By: #### 2 432-8 #### TONY TAFOYA ([id number]) [facility] ([facility]) [address] [place] [address] 60977 Platelets (Bld) [#/Vol] 311 x10*3/uL Normal 150-450 [facility] Comment on above: Performed By: #### 2 4323-8 #### TONY TAFOYA ([id number]) [facility] ([facility]) [address] [place] [address] 40087 RBC (Bld) [#/Vol] 4.37 x10*6/uL Normal 4.00-5.20 [facility] Comment on above: Performed By: #### 2 4323-8 #### TONY TAFOYA ([id number]) [facility] ([facility]) [address] [place] [address] 45281 WBC (Bld) [#/Vol] 8.8 x10*3/uL Normal 4.4-11.3 [facility] Comment on above: Performed By: #### 2 4323-8 #### TONY TAFOYA ([id number]) [facility] ([facility]) [address] [place] [address] 74662 Glucose Test strip manual (B ld) [Mass/Vol]on 08-12-2024 Glucose [Mass/Vol] 119 mg/dL High 74-99 [facility] Comment on above: Performed By: #### 3 040-3 #### TONY TAFOYA ([id number]) [facility] ([facility]) [address] [place] [address] 19939 Glucose [Mass/Vol] 163 mg/dL High 74-99 [facility] Comment on above: Performed By: #### 3 040-3 #### TONY TAFOYA ([id number]) [facility] ([facility]) [address] [place] [address] 79192 Glucose [Mass/Vol] 96 mg/dL Normal 74-99 [facility] Comment on above: Performed By: #### 2 4323-8 #### TONY TAFOYA ([id number]) [facility] ([facility]) [address] [place] [address] 39975 Glucose [Mass/Vol] 74 mg/dL Normal 74-99 [facility] Comment on above: Performed By: #### 2 4323-8 #### TONY TAFOYA ([id number]) [facility] ([facility]) [address] [place] [address] 96942 Magnesiumon 08-12-2024 Magnesium [Mass/Vol] 1.41 mg/dL Low 1.60-2.40 [facility] Comment on above: Performed By: #### 2 4323-8 #### TONY TAFOYA ([id number]) [facility] ([facility]) [address] [place] [address] 58018 Phosphateon 08-12-2024 Phosphate [Mass/Vol] 2.8 mg/dL Normal 2.5-4.9 [facility] Comment on above: Result Comment: The performance characteristics of phosphorus testing in heparinized plasma have been validated by the individual laboratory site where testing is performed. Testing on heparinized plasma is not approved by the FDA; however, such approval is not necessary. Performed By: #### 2 4323-8 #### TONY TAFOYA ([id number]) [facility] ([facility]) [address] [place] [address] 23487 Prealbuminon 08-12-2024 Prealbumin [Mass/Vol] 4.3 mg/dL Low 18.0-40.0 [facility] Comment on above: Performed By: #### 2 4323-8 #### TONY TAFOYA ([id number]) [facility] ([facility]) [address] [place] [address] Staphylococcus aureus.methic illin resistant isolateon 08-12-2024 MRSA isol Org specific cx Ql (Nose) Test: Staphylococcus Aureus/MRSA Colonization, Culture - PICC Only Specimen Source: Anterior Nares Specimen Type: Swab Specimen Date: 08/12/20241935 Result Date: 08/14/20241431 Result Status: Final result Abnormal: No Resulting Lab: [facility] [address] [place] [address] CULTURE No Staphylococcus aureus isolated [facility] Comment on above: Performed By: #### 5 2969-3 ####NOAM Urias ([id number])[facility] ([facility])[address] [place] [address] Vancomycinon 08-12-2024 Vancomycin [Mass/Vol] 22.5 ug/mL High 5.0-20.0 [facility] Comment on above: Order Comment: Vanco mycin levels can be monitored according to area under the curve (AUC) or concentration (ug/mL). The preferred monitoring strategy is determined by the patient's renal function and indication for therapy.For AUC monitoring, a random vancomycin level should be interpreted in the context of AUC rather than the concentration at a single point in time.For concentration monitoring, a trough concentration drawn immediately prior to the next dose is preferred.Therapeutic ranges using concentration-guided results:Peak (all ages): 30.0-40.0 ug/mLTrough (all ages): 10.0-20.0 ug/mL Performed By: #### 2 4323-8 #### TONY TAFOYA ([id number]) [facility] ([facility]) [facility] [place] [address] Vancomycin [Mass/Vol] 46.4 ug/mL High 5.0-20.0 [facility] Comment on above: Order Comment: Vanco mycin levels can be monitored according to area under the curve (AUC) or concentration (ug/mL). The preferred monitoring strategy is determined by the patient's renal function and indication for therapy.For AUC monitoring, a random vancomycin level should be interpreted in the context of AUC rather than the concentration at a single point in time.For concentration monitoring, a trough concentration drawn immediately prior to the next dose is preferred.Therapeutic ranges using concentration-guided results:Peak (all ages): 30.0-40.0 ug/mLTrough (all ages): 10.0-20.0 ug/mL Performed By: #### 2 4323-8 #### TONY TAFOYA ([id number]) [facility] ([facility]) [address] [place] [address] 36536 Basic metabolic 2000 panelon 08-11-2024 Anion gap [Moles/Vol] 11 mmol/L Normal 10-20 [facility] Comment on above: Performed By: #### 5 7021-8 #### TONY TAFOYA ([id number]) [facility] ([facility]) [address] [place] [address] 28699 Calcium [Mass/Vol] 7.4 mg/dL Low 8.6-10.3 [facility] Comment on above: Performed By: #### 5 7021-8 #### TONY TAFOYA ([id number]) [facility] ([facility]) [facility] [place] [address] Chloride [Moles/Vol] 101 mmol/L Normal 98-107 [facility] Comment on above: Performed By: #### 5 7021-8 #### TONY TAFOYA ([id number]) [facility] ([facility]) [address] [place] [address] 02830 CO2 [Moles/Vol] 28 mmol/L Normal 21-32 [facility] Comment on above: Performed By: #### 5 7021-8 #### TONY TAFOYA ([id number]) [facility] ([facility]) [address] [place] [address] 86909 Creatinine [Mass/Vol] 0.41 mg/dL Low 0.50-1.05 [facility] Comment on above: Performed By: #### 5 7021-8 #### TONY TAFOYA ([id number]) [facility] ([facility]) [address] [place] [address] 38030 GFR/1.73 sq M.predicted MDRD (S/P/Bld) [Vol rate/Area] mL/min/{1.73_m2} Normal >60 [facility] Comment on above: Result Comment: Calc ulations of estimated GFR are performed using the 2020 CKD-EPI Study Refit equation without the race variable for the IDMS-Traceable creatinine methods. https://jasn.asnjournals.org/content/early/ASN.77935 50446 Performed By: #### 5 7021-8 #### TONY TAFOYA ([id number]) [facility] ([facility]) [address] [place] [address] 18159 Glucose [Mass/Vol] 65 mg/dL Low 74-99 [facility] Comment on above: Performed By: #### 5 7021-8 #### TONY TAFOYA ([id number]) [facility] ([facility]) [address] [place] [address] 34369 Potassium [Moles/Vol] 3.7 mmol/L Normal 3.5-5.3 [facility] Comment on above: Performed By: #### 5 7021-8 #### TONY TAFOYA ([id number]) [facility] ([facility]) [address] [place] [address] 50283 Sodium [Moles/Vol] 136 mmol/L Normal 136-145 [facility] Comment on above: Performed By: #### 5 7021-8 #### TONY TAFOYA ([id number]) [facility] ([facility]) [address] [place] [address] 04951 Urea nitrogen [Mass/Vol] 8 mg/dL Normal 6-23 [facility] Comment on above: Performed By: #### 5 7021-8 #### TONY TAFOYA ([id number]) [facility] ([facility]) [address] [place] [address] CBC W Auto Differential pane l (Bld)on 08-11-2024 Erythrocyte distribution width (RBC) [Ratio] 27.1 % High 11.5-14.5 [facility] Comment on above: Order Comment: No cl ots in sample. Slide reviewed. Performed By: #### 5 7021-8 #### TONY TAFOYA ([id number]) [facility] ([facility]) [address] [place] [address] Hematocrit (Bld) [Volume fraction] 25.9 % Low 36.0-46.0 [facility] Comment on above: Order Comment: No cl ots in sample. Slide reviewed. Performed By: #### 5 7021-8 #### TONY TAFOYA ([id number]) [facility] ([facility]) [address] [place] [address] Hemoglobin (Bld) [Mass/Vol] 7.0 g/dL Low 12.0-16.0 [facility] Comment on above: Order Comment: No cl ots in sample. Slide reviewed. Performed By: #### 5 7021-8 #### TONY TAFOYA ([id number]) [facility] ([facility]) [address] [place] [address] Immature granulocytes (Bld) [#/Vol] 0.07 x10*3/uL Normal 0.00-0.70 [facility] Comment on above: Order Comment: No cl ots in sample. Slide reviewed. Performed By: #### 5 7021-8 #### TONY TAFOYA ([id number]) [facility] ([facility]) [address] [place], [place] [address] Immature granulocytes/100 WBC (Bld) 0.9 % Normal 0.0-0.9 [facility] Comment on above: Order Comment: No cl ots in sample. Slide reviewed. Result Comment: Gianna ture Granulocyte Count (IG) includes promyelocytes, myelocytes and metamyelocytes but does not include bands. Percent differential counts (%) should be interpreted in the context of the absolute cell counts (cells/UL). Performed By: #### 5 7021-8 #### TONY TAFOYA ([id number]) [facility] ([facility]) [facility] [place] [address] MCH (RBC) [Entitic mass] 16.0 pg Low 26.0-34.0 [facility] Comment on above: Order Comment: No cl ots in sample. Slide reviewed. Performed By: #### 5 7021-8 #### TONY TAFOYA ([id number]) [facility] ([facility]) [address] [place] [address] 33370 MCHC (RBC) [Mass/Vol] 27.0 g/dL Low 32.0-36.0 [facility] Comment on above: Order Comment: No cl ots in sample. Slide reviewed. Performed By: #### 5 7021-8 #### TONY TAFOYA ([id number]) [facility] ([facility]) [address] [place] [address] 53511 MCV (RBC) [Entitic vol] 59 fL Low 80-100 [facility] Comment on above: Order Comment: No cl ots in sample. Slide reviewed. Performed By: #### 5 7021-8 #### TONY TAFOYA ([id number]) [facility] ([facility]) [address] [place] [address] 21138 Nucleated RBC/100 WBC (Bld) [Ratio] 0.0 /100 WBCs Normal 0.0-0.0 [facility] Comment on above: Order Comment: No cl ots in sample. Slide reviewed. Performed By: #### 5 7021-8 #### TONY TAFOYA ([id number]) [facility] ([facility]) [address] [place] [address] 76358 Platelets (Bld) [#/Vol] 233 x10*3/uL Normal 150-450 [facility] Comment on above: Order Comment: No cl ots in sample. Slide reviewed. Performed By: #### 5 7021-8 #### TONY TAFOYA ([id number]) [facility] ([facility]) [address] [place] [address] 77461 RBC (Bld) [#/Vol] 4.37 x10*6/uL Normal 4.00-5.20 [facility] Comment on above: Order Comment: No cl ots in sample. Slide reviewed. Performed By: #### 5 7021-8 #### TONY TAFOYA ([id number]) [facility] ([facility]) [address] [place] [address] WBC (Bld) [#/Vol] 8.1 x10*3/uL Normal 4.4-11.3 [facility] Comment on above: Order Comment: No cl ots in sample. Slide reviewed. Performed By: #### 5 7021-8 #### TONY TAFOYA ([id number]) [facility] ([facility]) [address] [place] [address] 55860 Glucose Test strip manual (B ld) [Mass/Vol]on 08-11-2024 Glucose [Mass/Vol] 201 mg/dL High 74-99 [facility] Comment on above: Performed By: #### 2 4323-8 #### TONY TAFOYA ([id number]) [facility] ([facility]) [address] [place] [address] Glucose [Mass/Vol] 93 mg/dL Normal 74-99 [facility] Comment on above: Performed By: #### 5 7021-8 #### TONY TAFOYA ([id number]) [facility] ([facility]) [address] [place] [address] Glucose [Mass/Vol] 131 mg/dL High 74-99 [facility] Comment on above: Performed By: #### 5 7021-8 #### TONY TAFOYA ([id number]) [facility] ([facility]) [address] [place] [address] Glucose [Mass/Vol] 151 mg/dL High 74-99 [facility] Comment on above: Performed By: #### 5 7021-8 #### TONY TAFOYA ([id number]) [facility] ([facility]) [address] [place] [address] Glucose [Mass/Vol] 67 mg/dL Low 74-99 [facility] Comment on above: Performed By: #### 5 7021-8 #### TONY TAFOYA ([id number]) [facility] ([facility]) [address] [place] [address] Glucose [Mass/Vol] 63 mg/dL Low 74-99 [facility] Comment on above: Performed By: #### 5 7021-8 #### TONY TAFOYA ([id number]) [facility] ([facility]) [address] [place] [address] Magnesiumon 08-11-2024 Magnesium [Mass/Vol] 1.61 mg/dL Normal 1.60-2.40 [facility] Comment on above: Performed By: #### 5 0957-0 #### TONY TAFOYA ([id number]) [facility] ([facility]) [address] [place] [address] Manual differential performe d Ql (Bld)on 08-11-2024 Band form neutrophils (Bld) [#/Vol] 0.32 x10*3/uL Normal 0.00-0.70 [facility] Comment on above: Performed By: #### 5 7021-8 #### TONY TAFOYA ([id number]) [facility] ([facility]) [address] [place], [place] [address] Band form neutrophils/100 WBC (Bld) 4.0 % Normal 0.0-5.0 [facility] Comment on above: Performed By: #### 5 7021-8 #### TONY TAFOYA ([id number]) [facility] ([facility]) [address] [place], [place] [address] Basophils (Bld) [#/Vol] 0.00 x10*3/uL Normal 0.00-0.10 [facility] Comment on above: Performed By: #### 5 7021-8 #### TONY TAFOYA ([id number]) [facility] ([facility]) [address] [place] [address] 21885 Basophils/100 WBC (Bld) 0.0 % Normal 0.0-2.0 [facility] Comment on above: Performed By: #### 5 7021-8 #### TONY TAFOYA ([id number]) [facility] ([facility]) [address] [place] [address] Cells Counted Total (Bld) [#] 100 Normal [facility] Comment on above: Performed By: #### 5 7021-8 #### TONY TAFOYA ([id number]) [facility] ([facility]) [address] [place] [address] 03256 Eosinophils (Bld) [#/Vol] 0.16 x10*3/uL Normal 0.00-0.70 [facility] Comment on above: Performed By: #### 5 7021-8 #### TONY TAFOYA ([id number]) [facility] ([facility]) [address] [place] [address] 26153 Eosinophils/100 WBC (Bld) 2.0 % Normal 0.0-6.0 [facility] Comment on above: Performed By: #### 7021-8 #### TONY TAFOYA ([id number]) [facility] ([facility]) [address] [place] [address] 07258 Giant platelets LM Ql (Bld) Few Normal [facility] Comment on above: Performed By: #### 5 7021-8 #### TONY TAFOYA ([id number]) [facility] ([facility]) [address] [place] [id number] Hypochromia Ql (Bld) Marked Normal [facility] Comment on above: Performed By: #### 5 7021-8 #### TONY TAFOYA ([id number]) [facility] ([facility]) [address] [place] [address] [id number] Lymphocytes (Bld) [#/Vol] 0.57 x10*3/uL Low 1.20-4.80 [facility] Comment on above: Performed By: #### 5 7021-8 #### TONY TAFOYA ([id number]) [facility] ([facility]) [address] [place] [address] 27685 Lymphocytes/100 WBC (Bld) 7.0 % Normal 13.0-44.0 [facility] Comment on above: Performed By: #### 5 7021-8 #### TONY TAFOYA ([id number]) [facility] ([facility]) [address] [place] [address] 59491 Monocytes (Bld) [#/Vol] 0.81 x10*3/uL Normal 0.10-1.00 [facility] Comment on above: Performed By: #### 5 7021-8 #### TONY TAFOYA ([id number]) [facility] ([facility]) [address] [place] [address] 07134 Monocytes/100 WBC (Bld) 10.0 % Normal 2.0-10.0 [facility] Comment on above: Performed By: #### 5 7021-8 #### TONY TAFOYA ([id number]) [facility] ([facility]) [address] [place] [address] 69117 Neutrophils (Bld) [#/Vol] 6.56 x10*3/uL Normal 1.20-7.70 [facility] Comment on above: Performed By: #### 5 7021-8 #### TONY TAFOYA ([id number]) [facility] ([facility]) [address] [place] [address] 28009 RBC morphology finding Nom (Bld) See Below Normal [facility] Comment on above: Performed By: #### 5 7021-8 #### TONY TAFOYA ([id number]) [facility] ([facility]) [address] [place] [address] 35389 Segmented neutrophils (Bld) [#/Vol] 6.24 x10*3/uL Normal 1.20-7.00 [facility] Comment on above: Performed By: #### 5 7021-8 #### TONY TAFOYA ([id number]) [facility] ([facility]) [address] [place] [address] 54708 Segmented neutrophils/100 WBC (Bld) 77.0 % Normal 40.0-80.0 [facility] Comment on above: Result Comment: Perc ent differential counts (%) should be interpreted in the context of the absolute cell counts (cells/uL). Performed By: #### 5 7021-8 #### TONY TAFOYA ([id number]) [facility] ([facility]) [address] [place], [place] [address] Target cells LM Ql (Bld) Few Normal [facility] Comment on above: Performed By: #### 5 7021-8 #### TONY TAFOYA ([id number]) [facility] ([facility]) [address] [place] [address] Phosphateon 08-11-2024 Phosphate [Mass/Vol] 2.0 mg/dL Low 2.5-4.9 [facility] Comment on above: Result Comment: The performance characteristics of phosphorus testing in heparinized plasma have been validated by the individual laboratory site where testing is performed. Testing on heparinized plasma is not approved by the FDA; however, such approval is not necessary. Performed By: #### 5 7021-8 #### TONY TAFOYA ([id number]) [facility] ([facility]) [address] [place] [address] Prealbuminon 08-11-2024 Prealbumin [Mass/Vol] 4.0 mg/dL Low 18.0-40.0 [facility] Comment on above: Performed By: #### 5 7021-8 #### TONY TAFOYA ([id number]) [facility] ([facility]) [address] [place] [address] 1,25-dihydroxyvitamin D3 [Ma ss/Vol]on 08-10-2024 1,25-dihydroxyvitamin D [Mass/Vol] 30.4 pg/mL Normal 19.9-79.3 [facility] Comment on above: Result Comment: INTE RPRETIVE INFORMATION: Vitamin D, 1,25-Dihydroxy This test is primarily indicated during patient evaluation for hypercalcemia and renal failure. A normal result does not rule out Vitamin D deficiency. The recommended test for diagnosing Vitamin D deficiency is Vitamin D 25-hydroxy. Performed By: [facility] [address] [place] [address] Computer Repairer: Sharath Jimenez MD, PhD CLIA Number: [id number] Performed By: #### 3 040-3 ###Angela TAFOYA ([id number]) [facility] ([facility]) [address] [place] [address] 63746 Bacteria identifiedon 2024 Bacteria identified Cx Nom (Unsp spec) Test: Tissue/Wound Culture/Smear Specimen Source: Wound/Tissue Specimen Type: Tissue/Biopsy Specimen Date: 08/10/2024418 Result Date: 08/12/2024 0843 Result Status: Final result Abnormal: Yes Resulting Lab: [facility] [address] [place] [address] CULTURE (4+) Abundant Mixed Gram-Positive and Gram-Negative Bacteria (2+) Few Mixed Anaerobic Bacteria Beta Lactamase (Cefinase) - Positive STAIN (1+) Rare Polymorphonuclear leukocytes (4+) Abundant Mixed Gram positive and Gram negative bacteria Abnormal [facility] Comment on above: Performed By: #### 5 0957-0 #### TONY TAFOYA ([id number]) [facility] ([facility]) [address] [place] [address] Bacteria identified Cx Nom (Bld) Test: Blood Culture Specimen Source: Peripheral Venipuncture Specimen Type: Blood culture Specimen Date: 08/10/2024404 Result Date: 08/14/2024 120 Result Status: Final result Abnormal: No Resulting Lab: [facility] [address] [place] [address] CULTURE No growth at 4 days - FINAL REPORT Normal [facility] Comment on above: Performed By: #### 8 9577-1 #### TONY TAFOYA ([id number]) [facility] ([facility]) [address] [place] [address] 19149 Bacteria identified Cx Nom (Bld) Test: Blood Culture Specimen Source: Peripheral Venipuncture Specimen Type: Blood culture Specimen Date: 08/10/2024243 Result Date: 08/14/2024 120 Result Status: Final result Abnormal: No Resulting Lab: [facility] [address] [place] [address] CULTURE No growth at 4 days - FINAL REPORT Normal [facility] Comment on above: Performed By: #### 8 9577-1 #### TONY TAFOYA ([id number]) [facility] ([facility]) [address] [place] [address] CBC W Auto Differential pane l (Bld)on 08-10-2024 Erythrocyte distribution width (RBC) [Ratio] 28.5 % High 11.5-14.5 [facility] Comment on above: Performed By: #### 5 7021-8 #### TONY TAFOYA ([id number]) [facility] ([facility]) [address] [place] [address] Hematocrit (Bld) [Volume fraction] 36.1 % Normal 36.0-46.0 [facility] Comment on above: Performed By: #### 5 7021-8 #### TONY TAFOYA ([id number]) [facility] ([facility]) [address] [place] [address] Hemoglobin (Bld) [Mass/Vol] 9.4 g/dL Low 12.0-16.0 [facility] Comment on above: Performed By: #### 5 7021-8 #### TONY TAFOYA ([id number]) [facility] ([facility]) [address] [place], [place] [address] Immature granulocytes (Bld) [#/Vol] 0.02 x10*3/uL Normal 0.00-0.70 [facility] Comment on above: Performed By: #### 5 7021-8 #### TONY TAFOYA ([id number]) [facility] ([facility]) [address] [place], [place] [address] Immature granulocytes/100 WBC (Bld) 0.3 % Normal 0.0-0.9 [facility] Comment on above: Result Comment: Gianna ture Granulocyte Count (IG) includes promyelocytes, myelocytes and metamyelocytes but does not include bands. Percent differential counts (%) should be interpreted in the context of the absolute cell counts (cells/UL). Performed By: #### 5 7021-8 #### TONY TAFOYA ([id number]) [facility] ([facility]) [address] [place] [address] 08235 MCH (RBC) [Entitic mass] 15.8 pg Low 26.0-34.0 [facility] Comment on above: Performed By: #### 7021-8 #### TONY TAFOYA ([id number]) [facility] ([facility]) [address] [place] [address] 35931 MCHC (RBC) [Mass/Vol] 26.0 g/dL Low 32.0-36.0 [facility] Comment on above: Performed By: #### 5 7021-8 #### TONY TAFOYA ([id number]) [facility] ([facility]) [address] [place] [address] 30606 MCV (RBC) [Entitic vol] 61 fL Low 80-100 [facility] Comment on above: Performed By: #### 5 7021-8 #### TONY TAFOYA ([id number]) [facility] ([facility]) [address] [place] [address] 78281 Nucleated RBC/100 WBC (Bld) [Ratio] 0.0 /100 WBCs Normal 0.0-0.0 [facility] Comment on above: Performed By: #### 5 7021-8 #### TONY TAFOYA ([id number]) [facility] ([facility]) [address] [place] [address] 29057 Platelets (Bld) [#/Vol] 472 x10*3/uL High 150-450 [facility] Comment on above: Performed By: #### 5 7021-8 #### TONY TAFOYA ([id number]) [facility] ([facility]) [address] [place] [address] 68321 RBC (Bld) [#/Vol] 5.96 x10*6/uL High 4.00-5.20 [facility] Comment on above: Performed By: #### 5 7021-8 #### TONY TAFOYA ([id number]) [facility] ([facility]) [address] [place] [address] WBC (Bld) [#/Vol] 6.1 x10*3/uL Normal 4.4-11.3 [facility] Comment on above: Performed By: #### 5 7021-8 #### JIMENEZ JOHNGISELLE ([id number]) [facility] ([facility]) [address] [place] [address] CT ABDOMEN PELVIS W IV CONTR Anastacio 08-10-2024 CT ABDOMEN PELVIS W IV CONTRAST Interpreted By: Mazin Holt, STUDY: CT ABDOMEN PELVIS W IV CONTRAST; 08/10/2024 11:10 am INDICATION: Signs/Symptoms:abdominal wound, concern for fistula. COMPARISON: None. ACCESSION NUMBER(S): [id number] ORDERING CLINICIAN: BYRON GREENE TECHNIQUE: Contiguous axial images were obtained at 3mm slice thickness through the abdomen and pelvis following intravenous contrast administration. Coronal and sagittal reconstructions at 3 mm slice thickness were performed. 54 ML of Omnipaque 350 was administered. FINDINGS: LOWER CHEST: Evaluation of the visualized lung bases is grossly unremarkable. The heart is within normal limits for size. ABDOMEN: LIVER: The liver is within normal limits for appearance, without evidence of focal masses. BILE DUCTS: No definite intra or extrahepatic biliary dilatation is identified. GALLBLADDER: The gallbladder is nondilated. No definite calcified gallstones are seen. PANCREAS: The pancreas is within normal limits for appearance, without evidence of focal masses. SPLEEN: The spleen is within normal limits for size. No focal splenic mass is seen. ADRENAL GLANDS: No definite adrenal nodules or masses are seen bilaterally. KIDNEYS AND URETERS: There is no hydronephrosis, hydroureter or renal/ ureteral calculus identified bilaterally. No definite focal renal mass is seen. PELVIS: BLADDER: The urinary bladder is grossly unremarkable for CT appearance. REPRODUCTIVE ORGANS: The uterus and ovaries are grossly unremarkable for CT appearance. 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 The colon and small bowel are otherwise grossly within normal limits for course, caliber and appearance, without evidence of wall thickening or obstruction. The appendix is not visualized. No CT evidence of acute diverticulitis or appendicitis is seen. VESSELS: Severe atherosclerotic calcifications are seen throughout the infrarenal abdominal aorta and iliac arteries. The abdominal aorta is within normal limits for course, caliber and appearance, without evidence of aneurysm. PERITONEUM/RETROPERITONEU M/LYMPH NODES: There is no free intraperitoneal air or free fluid identified. No gross mesenteric or retroperitoneal lymphadenopathy is identified. BONE AND SOFT TISSUE: Moderate to severe compression fracture is seen involving the L1 vertebral body. Ndrt-sg-ajnewmvm inferior endplate compression fracture is seen involving the L2 vertebral body. No evidence of abdominal wall mass or hernia is identified. IMPRESSION: 1. 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 2. No evidence of bowel obstruction, free intraperitoneal air or abnormal intra-abdominal fluid collection. 3. Lumbar vertebral compression fractures, of uncertain acuity. MACRO: None Signed by: Mazin Holt 08/10/2024 12:22 PM Dictation workstation: [id number] Normal [facility] Cobalaminson 08-10-2024 Cobalamin (Vitamin B12) [Mass/Vol] pg/mL High 211-911 [facility] Comment on above: Performed By: #### 5 0957-0 #### TONY TAFOYA ([id number]) [facility] ([facility]) [address] [place] [address] Comprehensive metabolic 2000 panelon 08-10-2024 Albumin BCP dye [Mass/Vol] 2.5 g/dL Low 3.4-5.0 [facility] Comment on above: Performed By: #### 2 4323-8 #### TONY TAFOYA ([id number]) [facility] ([facility]) [address] [place] [address] ALP [Catalytic activity/Vol] 130 U/L Normal 33-136 [facility] Comment on above: Performed By: #### 2 4323-8 #### TONY TAFOYA ([id number]) [facility] ([facility]) [address] [place] [address] ALT With P-5'-P [Catalytic activity/Vol] 7 U/L Normal 7-45 [facility] Comment on above: Result Comment: Rosalee ents treated with Sulfasalazine may generate falsely decreased results for ALT. Performed By: #### 2 4323-8 #### TONY TAFOYA ([id number]) [facility] ([facility]) [address] [place] [address] Anion gap [Moles/Vol] 14 mmol/L Normal 10-20 [facility] Comment on above: Performed By: #### 2 4323-8 #### TONY TAFOYA ([id number]) [facility] ([facility]) [address] [place] [address] 88817 AST With P-5'-P [Catalytic activity/Vol] 12 U/L Normal 9-39 [facility] Comment on above: Performed By: #### 2 4323-8 #### TONY TAFOYA ([id number]) [facility] ([facility]) [address] [place] [address] 39925 Bilirubin [Mass/Vol] 0.4 mg/dL Normal 0.0-1.2 [facility] Comment on above: Performed By: #### 2 432-8 #### TONY TAFOYA ([id number]) [facility] ([facility]) [address] [place] [address] 12663 Calcium [Mass/Vol] 6.7 mg/dL Low 8.6-10.3 [facility] Comment on above: Performed By: #### 2 432-8 #### TONY TAFOYA ([id number]) [facility] ([facility]) [address] [place] [address] Chloride [Moles/Vol] 104 mmol/L Normal 98-107 [facility] Comment on above: Performed By: #### 2 4323-8 #### TONY TAFOYA ([id number]) [facility] ([facility]) [address] [place] [address] 51121 CO2 [Moles/Vol] 24 mmol/L Normal 21-32 [facility] Comment on above: Performed By: #### 2 4323-8 #### TONY TAFOYA ([id number]) [facility] ([facility]) [address] [place] [address] 26045 Creatinine [Mass/Vol] 0.28 mg/dL Low 0.50-1.05 [facility] Comment on above: Performed By: #### 2 4323-8 #### TONY TAFOYA ([id number]) [facility] ([facility]) [address] [place] [address] 92926 GFR/1.73 sq M.predicted MDRD (S/P/Bld) [Vol rate/Area] mL/min/{1.73_m2} Normal >60 [facility] Comment on above: Result Comment: Calc ulations of estimated GFR are performed using the 2020 CKD-EPI Study Refit equation without the race variable for the IDMS-Traceable creatinine methods. https://jasn.asnjournals.org/content/early//ASN.03056 89779 Performed By: #### 2 4323-8 #### TONY TAFOYA ([id number]) [facility] ([facility]) [address] [place] [address] 01192 Glucose [Mass/Vol] 46 mg/dL Critically low 74-99 [facility] Comment on above: Performed By: #### 2 4323-8 #### TONY TAFOYA ([id number]) [facility] ([facility]) [address] [place] [address] 30486 Potassium [Moles/Vol] 3.1 mmol/L Low 3.5-5.3 [facility] Comment on above: Performed By: #### 2 4323-8 #### TONY TAFOYA ([id number]) [facility] ([facility]) [address] [place] [address] 54564 Protein [Mass/Vol] 5.1 g/dL Low 6.4-8.2 [facility] Comment on above: Performed By: #### 2 4323-8 #### TONY TAFOYA ([id number]) [facility] ([facility]) [address] [place] [address] 61844 Sodium [Moles/Vol] 139 mmol/L Normal 136-145 [facility] Comment on above: Performed By: #### 2 4323-8 #### TONY TAFOYA ([id number]) [facility] ([facility]) [facility] [place] [address] Urea nitrogen [Mass/Vol] 8 mg/dL Normal 6- [facility] Comment on above: Performed By: #### 2 4323-8 #### TONY TAFOYA ([id number]) [facility] ([facility]) [address] [place] [address] 10488 ECG 12-LEADon 08-10-2024 ECG 12-LEAD Ventricular Rate 91 Atrial Rate 91 P-R Interval 214 QRS Duration 66 Q-T Interval 410 QTC Calculation(Bazett) 504 P [place] 88 R [place] 78 T [place] 71 QRS Count 15 Q Onset 228 P Onset 121 P Offset 195 T Offset 433 QTC Fredericia 471 Diagnosis Sinus rhythm with 1st degree AV block Low voltage QRS Anteroseptal infarct , possibly acute ACUTE CT / STEMI Abnormal ECG No previous ECGs available See ED provider note for full interpretation and clinical correlation Confirmed by Alison Valdivia ([id number]) on 08/10/2024 5:48:10 PM Normal [facility] Folateon 08-10-2024 Folate [Mass/Vol] 10.4 ng/mL Normal >5.0 [facility] Comment on above: Order Comment: Low < 3.4Borderline 3.4-5.0Normal >5.0Patients receiving more than 5 mg/day of biotin may have interference in test results. A sample should be taken no sooner than eight hours after previous dose. Contact the testing laboratory for additional information. Performed By: #### 5 0957-0 #### TONY TAFOYA ([id number]) [facility] ([facility]) [address] [place] [address] 78413 Glucose Test strip manual (B ld) [Mass/Vol]on 08-10-2024 Glucose [Mass/Vol] 367 mg/dL High 74-99 [facility] Comment on above: Performed By: #### 5 0957-0 #### TONY TAFOYA ([id number]) [facility] ([facility]) [address] [place] [address] 09558 Glucose [Mass/Vol] 257 mg/dL High 74-99 [facility] Comment on above: Performed By: #### 5 0957-0 #### TONY TAFOYA ([id number]) [facility] ([facility]) [address] [place] [address] Glucose [Mass/Vol] 232 mg/dL High 74-99 [facility] Comment on above: Performed By: #### 8 9577-1 #### TONY TAFOYA ([id number]) [facility] ([facility]) [address] [place] [address] 14609 Glucose [Mass/Vol] 185 mg/dL High 74-99 [facility] Comment on above: Performed By: #### 8 9577-1 #### TONY TAFOYA ([id number]) [facility] ([facility]) [address] [place] [address] 59787 Glucose [Mass/Vol] 98 mg/dL Normal 74-99 [facility] Comment on above: Performed By: #### 8 9577-1 #### TONY TAFOYA ([id number]) [facility] ([facility]) [address] [place] [address] 86652 HbA1c (Bld) [Mass fraction]o n 08-10-2024 Average glucose Estimated from glycated hemoglobin (Bld) [Mass/Vol] 117 mg/dL Normal Not Established [facility] Comment on above: Order Comment: Diagn osis of Xwsyhemg-MjbfvaCio-Nmdgandu: < or = 5.6%Increased risk for developing diabetes: 5.7-6.4%Diagnostic of diabetes: > or = 6.5% Performed By: #### 5 0957-0 #### TONY TAFOYA (56393) [facility] ([facility]) [address] [place] [address] 16120 Hemoglobin A1c/Hemoglobin.to froilan 08-10-2024 HbA1c (Bld) [Mass fraction] 5.7 % High See comment [facility] Comment on above: Order Comment: Diagn osis of Jligfcjz-VoccuvHvo-Tfscbibl: < or = 5.6%Increased risk for developing diabetes: 5.7-6.4%Diagnostic of diabetes: > or = 6.5% Performed By: #### 5 0957-0 #### TONY TAFOYA ([id number]) [facility] ([facility]) [address] [place] [address] 57480 Iron and Iron binding capaci ty panelon 08-10-2024 Iron [Mass/Vol] ug/dL Low 35-150 [facility] Comment on above: Performed By: #### 8 9577-1 #### TONY TAFOYA ([id number]) [facility] ([facility]) [address] [place] [address] 52630 Iron binding capacity [Mass/Vol] Normal [facility] Comment on above: Result Comment: One or more of the analytes used in this calculation is outside of the analytical measurement range. Performed By: #### 8 9577-1 #### TONY TAFOYA ([id number]) [facility] ([facility]) [address] [place] [address] 30456 Iron binding capacity.unsaturated [Mass/Vol] 137 ug/dL Normal 110-370 [facility] Comment on above: Performed By: #### 8 9577-1 #### TONY TAFOYA ([id number]) [facility] ([facility]) [address] [place] [address] 77063 Iron saturation [Mass fraction] Normal [facility] Comment on above: Result Comment: One or more analytes used in this calculation is outside of the analytical measurement range. Calculation cannot be performed. Performed By: #### 8 9577-1 #### TONY TAFOYA ([id number]) [facility] ([facility]) [address] [place] [address] 05023 Lactateon 08-10-2024 Lactate [Moles/Vol] 1.3 mmol/L Normal 0.4-2.0 [facility] Comment on above: Order Comment: Venip uncture immediately after or during the administration of Metamizole may lead to falsely low results. Testing should be performed immediately prior to Metamizole dosing. Performed By: #### 2 524-7 #### TONY TAFOYA ([id number]) [facility] ([facility]) [address] [place] [address] Manual differential performe d Ql (Bld)on 08-10-2024 Basophils (Bld) [#/Vol] 0.00 x10*3/uL Normal 0.00-0.10 [facility] Comment on above: Performed By: #### 5 0957-0 #### TONY TAFOYA ([id number]) [facility] ([facility]) [address] [place] [address] Basophils/100 WBC (Bld) 0.0 % Normal 0.0-2.0 [facility] Comment on above: Performed By: #### 5 57-0 #### TONY TAFOYA ([id number]) [facility] ([facility]) [address] [place] [address] Cells Counted Total (Bld) [#] 100 Normal [facility] Comment on above: Performed By: #### 5 57-0 #### TONY TAFOYA ([id number]) [facility] ([facility]) [address] [place] [address] Eosinophils (Bld) [#/Vol] 0.00 x10*3/uL Normal 0.00-0.70 [facility] Comment on above: Performed By: #### 5 57-0 #### TONY TAFOYA ([id number]) [facility] ([facility]) [address] [place], [place] [address] Eosinophils/100 WBC (Bld) 0.0 % Normal 0.0-6.0 [facility] Comment on above: Performed By: #### 5 0957-0 #### TONY TAFOYA ([id number]) [facility] ([facility]) [address] [place] [address] Giant platelets LM Ql (Bld) Few Normal [facility] Comment on above: Performed By: #### 5 57-0 #### TONY TAFOYA ([id number]) [facility] ([facility]) [address] [place] [address] Hypochromia Ql (Bld) Marked Normal [facility] Comment on above: Performed By: #### 5 0957-0 #### TONY TAFOYA ([id number]) [facility] ([facility]) [address] [place] [address] 49998 Lymphocytes (Bld) [#/Vol] 1.10 x10*3/uL Low 1.20-4.80 [facility] Comment on above: Performed By: #### 5 57-0 #### TONY TAFOYA ([id number]) [facility] ([facility]) [address] [place] [address] 41501 Lymphocytes/100 WBC (Bld) 18.0 % Normal 13.0-44.0 [facility] Comment on above: Performed By: #### 5 57-0 #### TONY TAFOYA ([id number]) [facility] ([facility]) [address] [place] [address] Monocytes (Bld) [#/Vol] 0.12 x10*3/uL Normal 0.10-1.00 [facility] Comment on above: Performed By: #### 5 57-0 #### TONY TAFOYA ([id number]) [facility] ([facility]) [address] [place] [address] 77731 Monocytes/100 WBC (Bld) 2.0 % Normal 2.0-10.0 [facility] Comment on above: Performed By: #### 5 0957-0 #### TONY TAFOYA ([id number]) [facility] ([facility]) [address] [place] [address] 23014 RBC morphology finding Nom (Bld) See Below Normal [facility] Comment on above: Performed By: #### 5 0957-0 #### TONY TAFOYA ([id number]) [facility] ([facility]) [address] [place] [address] 91815 Segmented neutrophils (Bld) [#/Vol] 4.88 x10*3/uL Normal 1.20-7.00 [facility] Comment on above: Performed By: #### 5 0957-0 #### TONY TAFOYA ([id number]) [facility] ([facility]) [address] [place] [address] 41189 Segmented neutrophils/100 WBC (Bld) 80.0 % Normal 40.0-80.0 [facility] Comment on above: Result Comment: Perc ent differential counts (%) should be interpreted in the context of the absolute cell counts (cells/uL). Performed By: #### 5 0957-0 #### TONY TAFOYA ([id number]) [facility] ([facility]) [address] [place] [address] 95349 Target cells LM Ql (Bld) Few Normal [facility] Comment on above: Performed By: #### 5 0957-0 #### TONY TAFOYA ([id number]) [facility] ([facility]) [address] [place] [address] 02836 Natriuretic peptide B [Mass/ Vol]on 08-10-2024 Natriuretic peptide B (Bld) [Mass/Vol] 63 pg/mL Normal 0-99 [facility] Comment on above: Order Comment: <100 pg/mL - Heart failure unlikely 100-299 pg/mL - Intermediate probability of acute heart failure exacerbation. Correlate with clinical context and patient history. >=300 pg/mL - Heart Failure likely. Correlate with clinical context and patient history. BNP testing is performed using different testing methodology at [facility] than at other [facility]. Direct result comparisons should only be made within the same method. Performed By: #### 3 0934-4 #### TONY TAFOYA ([id number]) [facility] ([facility]) [address] [place] [address] 95760 Phosphateon 08-10-2024 Phosphate [Mass/Vol] 2.1 mg/dL Low 2.5-4.9 [facility] Comment on above: Result Comment: The performance characteristics of phosphorus testing in heparinized plasma have been validated by the individual laboratory site where testing is performed. Testing on heparinized plasma is not approved by the FDA; however, such approval is not necessary. Performed By: #### 8 9577-1 #### TONY TAFOYA ([id number]) [facility] ([facility]) [address] [place] [address] 06257 Procalcitoninon 08-10-2024 Procalcitonin [Mass/Vol] 0.08 ng/mL High <=0.07 [facility] Comment on above: Order Comment: Proca lcitonin (PCT) results measured serially canaid in decision-making for antibiotic discontinuation inpatients with suspected or confirmed sepsis in conjunctionwith additional clinical information. Antibioticdiscontinuation may be considered with a change in PCT of>80% from the peak result or when PCT falls below 0.50 ng/mL.Procalcitonin results should not be used in isolation butshould be interpreted in conjunction with additional clinicaland laboratory findings. Procalcitonin results should not beused to guide the initiation of antibiotic therapy.Falsely low PCT values in the presence of bacterial infectionmay occur in early infection, with atypical pathogens,localized infections, and subacute infectious endocarditis.Falsely elevated results outside of severe bacterialinfection/sepsis may be seen in patients with renal failureor insufficiency, severe trauma or jones, recent majorabdominal/cardiac surgery, acute multi-organ failure, rarelyin patients with medullary thyroid carcinoma and rareneuroendocrine tumors, and non-specific interfering antibodies(heterophile antibodies, rheumatoid factor, human anti-mouseantibodies (HAMA), etc).Performance of the PCT test in pediatric patients (<18yo), women, immunocompromised patients, and patients onimmunomodulatory medications has not been evaluated. Performed By: #### 5 0957-0 #### JIMENEZ MICHELET ([id number]) [facility] ([facility]) [address] [place] [address] Thyrotropinon 08-10-2024 TSH Qn 3.36 m[IU]/L Normal 0.44-3.98 [facility] Comment on above: Order Comment: Less than 99th percentile of normal range cutoff- Female and children under 18 years old <14 ng/L; Male <21 ng/L: Negative Repeat testing should be performed if clinically indicated. Female and children under 18 years old 14-50 ng/L; Male 21-50 ng/L: Consistent with possible cardiac damage and possible increased clinical risk. Serial measurements may help to assess extent of myocardial damage. >50 ng/L: Consistent with cardiac damage, increased clinical risk and myocardial infarction. Serial measurements may help assess extent of myocardial damage. NOTE: Children less than 1 year old may have higher baseline troponin levels and results should be interpreted in conjunction with the overall clinical context. NOTE: Troponin I testing is performed using a different testing methodology at [facility] than at other [facility]. Direct result comparisons should only be made within the same method. Performed By: #### 8 9577-1 #### TONY TAFOYA ([id number]) [facility] ([facility]) [address] [place] [address] 77308 Triacylglycerol lipaseon Lipase [Catalytic activity/Vol] 9 U/L Normal 9-82 [facility] Comment on above: Order Comment: Venip uncture immediately after or during the administration of Metamizole may lead to falsely low results. Testing should be performed immediately prior to Metamizole dosing. Performed By: #### 3 040-3 #### TONY TAFOYA ([id number]) [facility] ([facility]) [address] [place] [address] 13471 Troponin I.cardiac panelon 0 08-10-2024 Tropinin I.cardiac panel High sensitivity method 16 ng/L High 0-13 [facility] Comment on above: Order Comment: Less than 99th percentile of normal range cutoff- Female and children under 18 years old <14 ng/L; Male <21 ng/L: Negative Repeat testing should be performed if clinically indicated. Female and children under 18 years old 14-50 ng/L; Male 21-50 ng/L: Consistent with possible cardiac damage and possible increased clinical risk. Serial measurements may help to assess extent of myocardial damage. >50 ng/L: Consistent with cardiac damage, increased clinical risk and myocardial infarction. Serial measurements may help assess extent of myocardial damage. NOTE: Children less than 1 year old may have higher baseline troponin levels and results should be interpreted in conjunction with the overall clinical context. NOTE: Troponin I testing is performed using a different testing methodology at [facility] than at other [facility]. Direct result comparisons should only be made within the same method. Performed By: #### 8 9577-1 #### TONY TAFOYA ([id number]) [facility] ([facility]) [address] [place] [address] 74389 Tropinin I.cardiac panel High sensitivity method 19 ng/L High 0-13 [facility] Comment on above: Order Comment: Less than 99th percentile of normal range cutoff- Female and children under 18 years old <14 ng/L; Male <21 ng/L: Negative Repeat testing should be performed if clinically indicated. Female and children under 18 years old 14-50 ng/L; Male 21-50 ng/L: Consistent with possible cardiac damage and possible increased clinical risk. Serial measurements may help to assess extent of myocardial damage. >50 ng/L: Consistent with cardiac damage, increased clinical risk and myocardial infarction. Serial measurements may help assess extent of myocardial damage. NOTE: Children less than 1 year old may have higher baseline troponin levels and results should be interpreted in conjunction with the overall clinical context. NOTE: Troponin I testing is performed using a different testing methodology at [facility] than at other [facility]. Direct result comparisons should only be made within the same method. Performed By: #### 8 9577-1 #### JIMENEZ MICHELET ([id number]) [facility] ([facility]) [address] [place] [address] VASC US PVR WITHOUT EXERCISE on 08-10-2024 V[place] [address] [phone], Vascular Lab Report [facility] US PVR WITHOUT EXERCISE Patient Name: YOKO Wilson Physician: [id number] Hussein Singleton MD Study Date: 08/10/2024 Ordering Provider: [id number] LYNNETTE ALTAMIRANO MRN/PID: [id number] Fellow: Technologist: Shawn Cavazos RVT Date of /Age: 1 1955 Technologist 2: Violet Lord RVT/AB years Gender: F Admission Status: Inpatient Location [facility] Performed: Diagnosis/ICD: 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 CRITICAL RESULT Critical Result: Bilateral severe disease Notification called to Dr. Altamirano on 08/10/2024 at 4:02:34 PM. Acknowledged critical results notification communicated via Secure chat by Figueroa Cavazos RVT. CONCLUSIONS: Right Lower PVR: There is evidence of severe multi vessel disease. Monophasic flow is noted in the right popliteal artery and right dorsalis pedis artery. Multiphasic flow is noted in the right common femoral artery. Unable to obtain a toe pressure due to bandage. Left Lower PVR: There is evidence of severe multi-vessel disease. Decreased digital perfusion noted. Monophasic flow is noted in the left dorsalis pedis artery, left posterior tibial artery and left popliteal artery. Multiphasic flow is noted in the left common femoral artery. Left PT was not audible. Imaging & Doppler Findings: RIGHT Lower PVR Pressures Ratios Right High Thigh 71 mmHg 0.84 Right Low Thigh 31 mmHg 0.36 Right Calf 30 mmHg 0.35 Right Posterior Tibial (Ankle) 23 mmHg 0.27 Right Dorsalis Pedis (Ankle) 23 mmHg 0.27 LEFT Lower PVR Pressures Ratios Left High Thigh 62 mmHg 0.73 Left Low Thigh 34 mmHg 0.40 Left Calf 17 mmHg 0.20 Left Dorsalis Pedis (Ankle) 18 mmHg 0.21 Left Digit (Great Toe) 0 mmHg 0.00 Right Left Brachial Pressure 85 mmHg 85 mmHg [id number] Hussein Singleton MD Final [facility] XR ANKLE LEFT 3+ VIEWSon XR ANKLE LEFT 3+ VIEWS Interpreted By: Nicola Haley, STUDY: XR ANKLE LEFT 3+ VIEWS; XR FOOT LEFT 3+ VIEWS; ; 08/10/2024 3:10 am INDICATION: Signs/Symptoms:Posterior leg wound; Signs/Symptoms: Foot erythema. COMPARISON: None. ACCESSION NUMBER(S): [id number]; [id number] ORDERING CLINICIAN: TALIB WEBER FINDINGS: Four views of the left ankle and three views of the left foot. There is extensive lucency in the soft tissues of the dorsal lower leg and proximal ankle compatible with large open wound. No associated foreign body is seen. No distal subcutaneous emphysema seen. No acute fracture. No osteolysis or aggressive periostitis. Pes planus deformity with moderate midfoot degenerative changes. Bhme-wo-xrblleqa tibiotalar osteoarthropathy. Diffuse soft tissue edema of the imaged lower extremity. Athero clerotic calcifications. IMPRESSION: Please see above. MACRO: None Signed by: Nicola Hamilton 08/10/2024 3:54 AM Dictation workstation: [id number] [facility] XR CHEST 1 VIEWon 08-10-2024 XR CHEST 1 VIEW Interpreted By: Nicola Newby, STUDY: XR CHEST 1 VIEW; 08/10/2024 3:00 am INDICATION: Signs/Symptoms:Weakness. COMPARISON: None. ACCESSION NUMBER(S): [id number] ORDERING CLINICIAN: TALIB WEBER FINDINGS: AP radiograph of the chest was provided. CARDIOMEDIASTINAL SILHOUETTE: Cardiomediastinal silhouette is normal in size and configuration. LUNGS: Lungs are hyperinflated and hyperlucent compatible with emphysema/COPD. No focal parenchymal abnormality, pleural effusion, or pneumothorax. ABDOMEN: No remarkable upper abdominal findings. BONES: No acute osseous changes. IMPRESSION: 1. No evidence of acute cardiopulmonary process. Emphysema/COPD. MACRO: None Signed by: Nicola Hamilton 08/10/2024 3:51 AM Dictation workstation: [id number] [facility] XR FOOT LEFT 3+ VIEWSon 07-29 XR FOOT LEFT 3+ VIEWS Interpreted By: Nicola Belcher, STUDY: XR ANKLE LEFT 3+ VIEWS; XR FOOT LEFT 3+ VIEWS; ; 08/10/2024 3:10 am INDICATION: Signs/Symptoms:Posterior leg wound; Signs/Symptoms: Foot erythema. COMPARISON: None. ACCESSION NUMBER(S): [id number]; [id number] ORDERING CLINICIAN: TALIB WEBER FINDINGS: Four views of the left ankle and three views of the left foot. There is extensive lucency in the soft tissues of the dorsal lower leg and proximal ankle compatible with large open wound. No associated foreign body is seen. No distal subcutaneous emphysema seen. No acute fracture. No osteolysis or aggressive periostitis. Pes planus deformity with moderate midfoot degenerative changes. Yxvk-rp-dnekgzsf tibiotalar osteoarthropathy. Diffuse soft tissue edema of the imaged lower extremity. Athero clerotic calcifications. IMPRESSION: Please see above. MACRO: None Signed by: Nicola Hamilton 08/10/2024 3:54 AM Dictation workstation: [id number] [facility] XR FOOT RIGHT 3+ VIEWSon XR FOOT RIGHT 3+ VIEWS Interpreted By: Nicola Haley, STUDY: XR FOOT RIGHT 3+ VIEWS; ; 08/10/2024 3:10 am INDICATION: Signs/Symptoms:Blackened toes. COMPARISON: None. ACCESSION NUMBER(S): [id number] ORDERING CLINICIAN: TALIB WEBER FINDINGS: Three views of the right foot. Soft tissue deficiency in conjunction with extensive lucency denoting subcutaneous air involving the distal aspects of the 2nd greater than 3rd and 1st rays including the digits, compatible with soft tissue gangrene; similar findings of a lesser degree are present in the 4th digit. There are suspected regions of cortical erosion in the 1st through 3rd metatarsal heads and proximal phalanges suggesting osteomyelitis. Diffuse soft tissue swelling and edema of the right foot greater than ankle. Atherosclerotic calcifications. IMPRESSION: Please see above. MACRO: None Signed by: Nicola Hamilton 08/10/2024 3:57 AM Dictation workstation: [id number] [facility] Auto Diffon 03-05-2017 Basophils Auto #/vol (Bld) 0.1 E3/mcL Normal 0.0-0.2 [facility] Comment on above: Order Comment: Order Added by Discern Expert. Performed By: #### 2 [id number] ####ALICIA Brooks[address]uj[address] [place] [address] Basophils/100 WBC Auto (Bld) 0.9 % Normal 0.0-2.0 [facility] Comment on above: Order Comment: Order Added by Discern Expert. Performed By: #### 2 591329 ####ALICIA BrooksUrdAvpm[address] [place] [address] Eos Absolute 0.5 E3/mcL Normal 0.0-0.7 [facility] Comment on above: Order Comment: Order Added by Discern Expert. Performed By: #### 2 969669 ####ALICIA BrooksBy[address]Favs[address] [place] [address] Eosinophils/100 leukocytes 5.4 % Normal 0.0-11.0 [facility] Comment on above: Order Comment: Order Added by Discern Expert. Performed By: #### 2 612263 ####ALICIA BrooksKzmGsxo7075 [place] [address] Lymphocytes 1.4 E3/mcL Normal 1.2-3.4 [facility] Comment on above: Order Comment: Order Added by Discern Expert. Performed By: #### 2 969077 ####ALICIA [address] [place] [address] Lymphocytes/100 leukocytes 16.0 % Low 20.0-55.0 [facility] Comment on above: Order Comment: Order Added by Discern Expert. Performed By: #### 2 957381 ####ALICIA [address] [place] [address] [place] Absolute 0.9 E3/mcL High 0.0-0.7 [facility] Comment on above: Order Comment: Order Added by Discern Expert. Performed By: #### 2 188904 ####ALICIA [address] [place] [address] Monocytes/100 leukocytes 10.1 % High 0.0-10.0 [facility] Comment on above: Order Comment: Order Added by Discern Expert. Performed By: #### 2 848721 ####ALICIA [address] [place] [address] Neutro Absolute 5.8 E3/mcL Normal 1.4-6.5 [facility] Comment on above: Order Comment: Order Added by Discern Expert. Performed By: #### 2 113078 ####ALICIA [address] [place] [address] Neutro Auto 67.6 % Normal 37.0-75.0 [facility] Comment on above: Order Comment: Order Added by Discern Expert. Performed By: #### 2 145451 ####ALICIA [address] [place] [address] CBC w/ Auto Diffon 7 Erythrocyte distribution width Auto Ratio (RBC) 19.9 % High 11.5-14.5 [facility] Comment on above: Performed By: #### 2 839643 ####ALICIA [address] [place] [address] Erythrocytes (RBC) 4.14 E6/mcL Normal 3.90-5.40 [facility] Comment on above: Performed By: #### 2 280850 ####ALICIA BrooksRudBjjl28[address] [place] [address] Hematocrit (HCT) 33.6 % Low 36.0-48.0 [facility] Comment on above: Performed By: #### 2 669211 ####ALICIA BrooksIqkGwmv4806 [place] [address] Hemoglobin mass conc (Bld) 10.8 g/dL Low 12.0-16.0 [facility] Comment on above: Performed By: #### 2 681628 ####ALICIA BrooksVtuGcbg[address] [place] [address] MCH 26.1 pg Low 27.0-31.0 [facility] Comment on above: Performed By: #### 2 489723 ####ALICIA [address] [place] 1084405 MCHC mass conc (RBC) 32.1 g/dL Low 33.0-37.0 [facility] Comment on above: Performed By: #### 2 154094 ####ALICIA [address] [place] [address] MCV 81.2 fL Normal 78.0-100.0 [facility] Comment on above: Performed By: #### 2 682991 ####ALICIA BrooksPnoUzoa[address] [place] [address] Platelet mean volume (PMV) 6.7 fL Low 7.4-11.0 [facility] Comment on above: Performed By: #### 2 795922 ####ALICIA BrooksFwuPfiv0439 [place] [address] Platelets 468 E3/mcL High 130-400 [facility] Comment on above: Performed By: #### 2 203856 ####ALICIA BrooksLymHvyt3713 [place] [address] WBC (Leukocytes) 8.6 E3/mcL Normal 3.6-11.0 [facility] Comment on above: Performed By: #### 2 247998 ####ALICIA BrooksBvdOgyi1334 [place] [address] CMPon 03-05-2017 Alanine aminotransferase (ALT) 13 Int._Unit/L Normal 10-40 [facility] Comment on above: Performed By: #### 2 025418 ####ALICIA Ibrahim[address] [place] [address] Albumin 3.2 g/dL Normal 3.2-5.0 [facility] Comment on above: Performed By: #### 2 590485 ####ALICIA [address] [place] [address] Albumin/Globulin Ratio 0.9 {ratio} Low 1.1-1.9 [facility] Comment on above: Performed By: #### 2 654850 ####ALICIA AjxPqhi[address]133 [place] [address] Alk Phos 111 Int._Unit/L Normal 42-121 [facility] Comment on above: Performed By: #### 2 151021 ####ALICIA [address] [place] [address] Aspartate aminotransferase (AST) 15 Int._Unit/L Normal 10-42 [facility] Comment on above: Performed By: #### 2 613688 ####ALICIA [address] [place] [address] Bili Total 0.5 mg/dL Normal 0.2-1.0 [facility] Comment on above: Performed By: #### 2 903716 ####ALICIA [address] [place] [address] BUN/Creatinine Ratio 15.0 ratio Normal 5.4-30.0 [facility] Comment on above: Performed By: #### 2 589224 ####ALICIA BrooksWhcNfan08[address] [place] [address] Creatinine 1.0 mg/dL Normal 0.6-1.3 [facility] Comment on above: Performed By: #### 2 165426 ####ALICIA [address] [place] [address] Globulin 3.5 g/dL Normal 2.0-4.0 [facility] Comment on above: Performed By: #### 2 475555 ####ALICIA [address] [place] [address] Protein 6.7 g/dL Normal 6.4-8.3 [facility] Comment on above: Performed By: #### 2 063408 ####ALICIA SuwFvab[address] [place] [address] Urea nitrogen 15 mg/dL Normal 7-18 [facility] Comment on above: Performed By: #### 2 522402 ####ALICIA RxkDter0677 [place] [address] Calcium 8.7 mg/dL Normal 8.4-10.2 [facility] Comment on above: Performed By: #### 2 429949 ####ALICIA FyjTqui[address]16 [place] [address] Chloride 104 mmol/L Normal 98-107 [facility] Comment on above: Performed By: #### 2 451897 ####ALICIA GaiFbjn6532 [place] [address] CO2 25.9 mmol/L Normal 24.0-30.0 [facility] Comment on above: Performed By: #### 2 148998 ####ALICIA NqjGlav6875 [place] [address] Glucose mass conc 83 mg/dL Normal 70-99 [facility] Comment on above: Performed By: #### 2 368558 ####ALICIA XotVdzd0811 [place] [address] Potassium molar conc 3.9 mmol/L Normal 3.5-5.1 [facility] Comment on above: Performed By: #### 2 136299 ####ALICIA CxeWgtl2224 [place] [address] Sodium 138 mmol/L Normal 136-145 [facility] Comment on above: Performed By: #### 2 691724 ####ALICIA EqoAqhm[address]67 [place] [address] Magnesiumon 03-05-2017 Magnesium 2.0 mg/dL Normal 1.7-2.8 [facility] Comment on above: Performed By: #### 2 833155 ####ALICIA PrnVyml9491 [place] [address] Sed Rate Automatedon 017 Sed Rate Automated 110 mm/hr Normal [facility] Comment on above: Result Comment: AGE- SPECIFIC REFERENCE RANGES FOR SEDIMENTATION RATE AUTOMATED REFERENCE RANGE - MM/HR AGE MEN WOMEN 0-2 0-2 - PUBERTY 3-13 3-13 PUBERTY - 50 YRS 0-15 0-20 > 50 YRS 0-20 0-30 Performed By: #### 1 [id number] ####ALICIA Hematology Manual [address] [place] [address] eGFRon 03-05-2017 eGFR (non-black) mL/min/{1.73_m2} Normal [facility] Comment on above: Order Comment: Order added by Discern Expert. Performed By: #### 1 [id number] ####ALICIA NxsCxcc3051 [place] [address] eGFR (non-black) 56 mL/min/1.73 m2 Normal [facility] Comment on above: Order Comment: Order added by Discern Expert. Performed By: #### 1 [id number] ####ALICIA TmaUuog7779 [place] [address] POC Glucose Deviceon 017 Glucose 107 mg/dL Invalid Interpretation Code [facility] Work Phone: Interpretation and review of laboratory results Normal Invalid Interpretation Code [facility] Work Phone: POC Glycosylated Hemoglobin (Hb A1C)on 01-26-2017 HbA1c 5.5 % Invalid Interpretation Code 4 - 6 % [facility] Work Phone: Interpretation and review of laboratory results Normal Invalid Interpretation Code [facility] Work Phone: POC Urinalysis Dipstickon Interpretation and review of laboratory results Abnormal Invalid Interpretation Code [facility] Work Phone: Urine, bilirubin presence Small Abnormal Negative mg/dL [facility] Work Phone: Urine, glucose presence Negative Invalid Interpretation Code Normal, Negative mg/dL [facility] Work Phone: Urine, hemoglobin presence Trace-lysed Abnormal Negative RBC/uL [facility] Work Phone: Urine, ketones presence 15 Abnormal Negative mg/dL [facility] Work Phone: Urine, leukocyte esterase presence Negative Invalid Interpretation Code Negative WBC/uL [facility] Work Phone: Urine, nitrite presence Negative Invalid Interpretation Code Negative [facility] Work Phone: Urine, pH 5.5 [pH] Invalid Interpretation Code 5.0 - 7.0 [facility] Work Phone: Urine, protein presence Trace Abnormal Negative mg/dL [facility] Work Phone: Urine, specific gravity 1.030 1 Abnormal 1.005 - 1.025 [facility] Work Phone: Urine, urobilinogen 0.2 mg/dL Invalid Interpretation Code <2.0, 0.2, Normal, Negative, 1.0, 2.0, <1.0 [facility] Work Phone: Vital Signs Date Time Vital Sign Value Performing Clinician Facility 11-22-2024 09:02-0400 Body temperature 98.8 [degF] Bjorn Hudson MD Work Phone: [facility] 11-22-2024 09:02-0400 Diastolic blood pressure 53 mm[Hg] Bjorn Hudson MD Work Phone: [facility] 11-22-2024 09:02-0400 Heart rate 97 /min Bjorn Hudson MD Work Phone: [facility] 11-22-2024 09:02-0400 Respiratory rate 20 /min Bjorn Hudson MD Work Phone: [facility] 11-22-2024 09:02-0400 Systolic blood pressure 107 mm[Hg] Bjorn Hudson MD Work Phone: [facility] 11-09-2024 07:57-0400 Body temperature 97.5 [degF] Candace Fuller MD Work Phone: [facility] 11-09-2024 07:57-0400 Diastolic blood pressure 55 mm[Hg] Candace Fuller MD Work Phone: [facility] 11-09-2024 07:57-0400 Heart rate 70 /min Candace Fuller MD Work Phone: [facility] 11-09-2024 07:57-0400 Respiratory rate 18 /min Candace Fuller MD Work Phone: [facility] 11-09-2024 07:57-0400 SaO2% (BldA) [Mass fraction] 92 % Candace Fuller MD Work Phone: [facility] 11-09-2024 07:57-0400 Systolic blood pressure 115 mm[Hg] Candace Fuller MD Work Phone: [facility] 11-01-2024 19:59-0400 Body temperature 97.9 [degF] Candace Fuller MD Work Phone: [facility] 11-01-2024 19:59-0400 Diastolic blood pressure 47 mm[Hg] Candace Fuller MD Work Phone: [facility] 11-01-2024 19:59-0400 Heart rate 87 /min Candace Fuller MD Work Phone: [facility] 11-01-2024 19:59-0400 Respiratory rate 16 /min Candace Fuller MD Work Phone: [facility] 11-01-2024 19:59-0400 SaO2% (BldA) [Mass fraction] 92 % Candace Fuller MD Work Phone: [facility] 11-01-2024 19:59-0400 Systolic blood pressure 97 mm[Hg] Candace Fuller MD Work Phone: [facility] 11-01-2024 07:06-0400 Body height 144.8 cm Candace Fuller MD Work Phone: [facility] 10-31-2024 11:32-0400 Body mass index (BMI) [Ratio] 15.79 kg/m2 Candace Fuller MD Work Phone: [facility] 10-31-2024 11:32-0400 Body weight 33.11 kg Candace Fuller MD Work Phone: [facility] 10-31-2024 09:00-0400 Body temperature 98.7 [degF] Dr. Olya Piña MD [facility] 10-31-2024 09:00-0400 Diastolic blood pressure 78 mm[Hg] Dr. Olya Piña MD [facility] 10-31-2024 09:00-0400 Heart rate 89 /min Dr. Olya Piña MD [facility] 10-31-2024 09:00-0400 Respiratory rate 99 /min Dr. Olya Piña MD [facility] 10-31-2024 09:00-0400 SaO2% (BldA) [Mass fraction] 98 % Dr. Olya Piña MD [facility] 10-31-2024 09:00-0400 Systolic blood pressure 114 mm[Hg] Dr. Olya Piña MD [facility] 10-30-2024 23:43-0400 Body height 152.[address] Olya Piña MD [facility] 10-30-2024 23:43-0400 Body mass index (BMI) [Ratio] 18.4 kg/m2 Dr. Olya Piña MD [facility] 10-30-2024 23:43-0400 Body weight 42.[address] Olya Piña MD [facility] 09-25-2024 09:02-0400 Body height 154.9 cm Mia Shea MD Work Phone: [facility] Comment on above: Verbal 09-25-2024 09:02-0400 Body mass index (BMI) [Ratio] 14.93 kg/m2 Mia Shea MD Work Phone: [facility] 09-25-2024 09:02-0400 Body temperature 98.2 [degF] Mia Shea MD Work Phone: [facility] 09-25-2024 09:02-0400 Body weight 35.83 kg Mia Shea MD Work Phone: [facility] Comment on above: Verbal 09-25-2024 09:02-0400 Diastolic blood pressure 60 mm[Hg] Mia Shea MD Work Phone: [facility] 09-25-2024 09:02-0400 Heart rate 88 /min Mia Shea MD Work Phone: [facility] 09-25-2024 09:02-0400 Respiratory rate 14 /min Mia Shea MD Work Phone: [facility] 09-25-2024 09:02-0400 SaO2% (BldA) [Mass fraction] 99 % Mia Shea MD Work Phone: [facility] 09-25-2024 09:02-0400 Systolic blood pressure 96 mm[Hg] Mia Shea MD Work Phone: [facility] 09-20-2024 10:58-0400 Diastolic blood pressure 50 mm[Hg] Laurie Armstrong MD Work Phone: [facility] 09-20-2024 10:58-0400 Heart rate 92 /min Laurie Armstrong MD Work Phone: [facility] 09-20-2024 10:58-0400 SaO2% (BldA) [Mass fraction] 99 % Laurie Armstrong MD Work Phone: [facility] 09-20-2024 10:58-0400 Systolic blood pressure 102 mm[Hg] Laurie Armstrong MD Work Phone: [facility] 03-29-2017 15:56-0400 BMI (Body Mass Index) 21.87 kg/m2 Pravin [facility] Work Phone: 03-29-2017 15:56-0400 Body Temperature 97.81 [degF] Pravin [facility] Work Phone: 03-29-2017 15:56-0400 BP Diastolic 76 mm[Hg] [facility] Work Phone: 03-29-2017 15:56-0400 BP Systolic 126 mm[Hg] [facility] Work Phone: 03-29-2017 15:56-0400 Height 152.4 cm Pravin Vincent [facility] Work Phone: 03-29-2017 15:56-0400 Pulse (Heart Rate) 80 /min Pravin Rojas Work Phone: 03-29-2017 15:56-0400 Pulse Oximetry 98 % Pravin Rojas Work Phone: 03-29-2017 15:56-0400 Respiratory Rate 18 /min [facility] Work Phone: 03-29-2017 15:56-0400 Weight 50.8 kg [facility] Work Phone: 01-26-2017 15:16-0400 BMI (Body Mass Index) 19.92 kg/m2 [facility] Work Phone: 01-26-2017 15:16-0400 Body Temperature 97.9 [degF] [facility] Work Phone: 01-26-2017 15:16-0400 BP Diastolic 64 mm[Hg] [facility] Work Phone: 01-26-2017 15:16-0400 BP Systolic 106 mm[Hg] [facility] Work Phone: 01-26-2017 15:16-0400 Height 152.4 cm Pravin Rojas Work Phone: 01-26-2017 15:16-0400 Pulse (Heart Rate) 97 /min Pravin Rojas Work Phone: 01-26-2017 15:16-0400 Pulse Oximetry 97 % Pravin Rojas Work Phone: 01-26-2017 15:16-0400 Respiratory Rate 16 /min [facility] Work Phone: 01-26-2017 15:16-0400 Weight 46.27 kg [facility] Work Phone: Encounters Encounter Date Encounter Type Care Provider Facility Start: 11-22-2024 End: 11-22-2024 ambulatory BJORN HUDSON [facility] Start: 11-22-2024 End: 11-22-2024 Office outpatient new 45 minutes Bjorn Hudson MD Work Phone: [facility] [place] Comment on above: Pressure ulcer of sa cral region, stage 3 (HCC) (Primary Dx); 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); Pressure ulcer of right heel, stage 3 (HCC); Pressure ulcer of left heel, stage 3 (HCC); Colocutaneous fistula; Severe malnutrition (CMS/HCC) (HCC) [facility]: [facility] Start: 11-13-2024 ambulatory [facility] Facility:[facility] Start: 10-31-2024 End: 11-09-2024 Evaluation and management of inpatient Candace Fuller MD Work Phone: [facility] PCU H6 Comment on above: Decubitus ulcer of s acral region, unstageable (HCC) (Primary Dx); PICC line infection, initial encounter Start: 10-30-2024 End: 10-31-2024 Dr. Olya Piña MD -Emergency Departmen t Work Phone: Start: 10-30-2024 End: 10-31-2024 Emergency department patient visit Dr. Olya Piña MD [facility] Work Phone: Start: [facility] Start: 10-30-2024 Dr. Olya Piña MD [facility] Start: 10-26-2024 ambulatory Olya Piña OLS Facili ty:[facility] Start: 10-26-2024 Dr. Olya Piña MD [facility] Start: 10-24-2024 ambulatory Olya SNYDER Facili ty:[facility] Start: 10-24-2024 Dr. Olya Piña MD [facility] Start: 10-18-2024 ambulatory Olya SNYDER Facili ty:[facility] Start: 10-18-2024 Dr. Olya Gudla MD [facility] Start: 10-16-2024 ambulatory Olya Gudla OLS Facili ty:[facility] Start: 10-16-2024 Dr. Olya Piña MD [facility] Start: 10-12-2024 ambulatory Olya Gudla OLS Facili ty:[facility] Start: 10-12-2024 Dr. Olya Piña MD [facility] Start: 10-09-2024 ambulatory Olya Gudla OLS Facili ty:[facility] Start: 10-09-2024 Dr. Olya Piañ MD [facility] Start: 10-06-2024 ambulatory Olya Gudla OLS Facili ty:[facility] Start: 10-06-2024 Dr. Olya Piña MD [facility] Start: 10-04-2024 ambulatory Olya Gudla OLS Facili ty:[facility] Start: 10-04-2024 Dr. Olya Piña MD [facility] Start: 10-02-2024 ambulatory Olya Gudla OLS Facili ty:[facility] Start: 10-02-2024 Dr. Olya Piña MD [facility] Start: 09-29-2024 ambulatory Olya Gudla OLS Facili ty:[facility] Start: 09-29-2024 Dr. Olya Piña MD [facility] Start: 09-27-2024 ambulatory Olya Gudla OLS Facili ty:[facility] Start: 09-27-2024 Dr. Olya Piña MD [facility] Start: 09-25-2024 End: 09-25-2024 Patient encounter procedure Mia Shea MD Work Phone: General Surgery Comment on above: Colocutaneous fistul a (Primary Dx) Start: 09-25-2024 End: 09-25-2024 ambulatory MIA SHEA Facility:[facility] Start: 09-25-2024 Dr. Olya Piña MD [facility] Start: 09-22-2024 ambulatory Olya Gudla OLS Facili ty:[facility] Start: 09-22-2024 Dr. Olya Piña MD [facility] Start: 09-20-2024 End: 09-20-2024 Office outpatient new 45 minutes Laurie Armstrong MD Work Phone: [facility] Comment on above: Failure to thrive (c hild) (Primary Dx); Other chronic osteomyelitis of right foot Start: 09-20-2024 End: 09-20-2024 [facility] Start: 09-20-2024 Dr. Olya Piña MD [facility] Start: 09-18-2024 ambulatory Olya Gudla OLS Facili ty:[facility] Start: 09-18-2024 Dr. Olya Piña MD [facility] Start: 09-15-2024 ambulatory Olya Gudla OLS Facili ty:[facility] Start: 09-15-2024 Dr. Olya Piña MD [facility] Start: 09-13-2024 ambulatory Olya Gudla OLS Facili ty:[facility] Start: 09-13-2024 Dr. Olya Piña MD [facility] Start: 09-11-2024 ambulatory Olya Gudla OLS Facili ty:[facility] Start: 09-11-2024 Dr. Olya Piña MD [facility] Start: 09-08-2024 ambulatory Olya Gudla OLS Facili ty:[facility] Start: 09-08-2024 Dr. Olya Piña MD [facility] Start: 09-06-2024 ambulatory Olya Gudla OLS Facili ty:[facility] Start: 09-06-2024 Dr. Olya Piña MD [facility] Start: 09-04-2024 ambulatory Olya Gudla OLS Facili ty:[facility] Start: 09-04-2024 Dr. Olya Piña MD [facility] Start: 09-01-2024 ambulatory Olya Hayderdla OLS Facili ty:[facility] Start: [facility] Start: 08-30-2024 ambulatory Olya Hayderdla OLS Facili ty:[facility] Start: [facility]-30[facility] Start: 08-28-2024 ambulatory Olya Hayderdla OLS Facili ty:[facility] Start: 08-28-2024 Dr. Olya Piña MD [facility] Start: 08-26-2024 ambulatory Olya Hayderdla OLS Facili ty:[facility] Start: 08-26-2024 Dr. Olya Piña MD [facility] Start: 08-25-2024 ambulatory Olya Hayderalidaa OLS Facili ty:[facility] Start: 08-25-2024 Dr. Olya Piña MD [facility] Start: 08-10-2024 End: 08-24-2024 Evaluation and management of inpatient [facility] Start: 03-29-2017 End: 04-02-2017 Ambulatory PRAVIN VINCENT [facility] Start: 03-29-2017 Office outpatient vi sit 15 minutes Pravin Vincent Work Phone: [facility] Start: 03-05-2017 End: 03-06-2017 Ambulatory Pravin Vincent Facility:[facility] Start: 01-26-2017 End: 01-30-2017 Ambulatory PRAVIN MARIA MELISA [facility] Start: 01-26-2017 Office/outpatient vi sit, est, level 4 Pravin Vincent Work Phone: [facility] Procedures Date Procedure Procedure Detail Performing Clinician Start: 11-09-2024 Glucose quantitative blood xcpt reagent strip Frederic Castelan DO Work Phone: Start: 11-09-2024 Glucose quantitative blood xcpt reagent strip Frederic Castelan DO Work Phone: Start: 11-09-2024 Glucose quantitative blood xcpt reagent strip Frederic Castelan DO Work Phone: Start: 11-09-2024 Basic metabolic pane l calcium total Shey Trujillo MD Work Phone: Start: 11-09-2024 Manual Differential panel - Blood Shey Trujillo MD Work Phone: Start: 11-08-2024 Glucose quantitative blood xcpt reagent strip Frederic Castelan DO Work Phone: Start: 11-08-2024 Glucose quantitative blood xcpt reagent strip Frederic Castelan DO Work Phone: Start: 11-08-2024 Glucose quantitative blood xcpt reagent strip Frederic Castelan DO Work Phone: Start: 11-08-2024 Glucose quantitative blood xcpt reagent strip Frederic Castelan DO Work Phone: Start: 11-08-2024 Basic metabolic pane l calcium total Shey Trujillo MD Work Phone: Start: 11-08-2024 Manual Differential panel - Blood Shey Trujillo MD Work Phone: Start: 11-07-2024 Glucose quantitative blood xcpt reagent strip Frederic Castelan DO Work Phone: Start: 11-07-2024 Glucose quantitative blood xcpt reagent strip Frederic Castelan DO Work Phone: Start: 11-07-2024 Glucose quantitative blood xcpt reagent strip Frederic Castelan DO Work Phone: Start: 11-07-2024 Glucose quantitative blood xcpt reagent strip Frederic Castelan DO Work Phone: Start: 11-07-2024 Basic metabolic pane l calcium total Shey Trujillo MD Work Phone: Start: 11-06-2024 Glucose quantitative blood xcpt reagent strip Steven De La Cruz MD Work Phone: Start: 11-06-2024 Glucose quantitative blood xcpt reagent strip Steven De La Cruz MD Work Phone: Start: 11-06-2024 Glucose quantitative blood xcpt reagent strip Steven De La Cruz MD Work Phone: Start: 11-06-2024 Glucose quantitative blood xcpt reagent strip Steven De La Cruz MD Work Phone: Start: 11-06-2024 Basic metabolic pane l calcium total Shey Trujillo MD Work Phone: Start: 11-06-2024 Manual Differential panel - Blood Shey Trujillo MD Work Phone: Start: 11-05-2024 Glucose quantitative blood xcpt reagent strip Steven De La Cruz MD Work Phone: Start: 11-05-2024 Glucose quantitative blood xcpt reagent strip Steven De La Cruz MD Work Phone: Start: 11-05-2024 Glucose quantitative blood xcpt reagent strip Steven De La Cruz MD Work Phone: Start: 11-05-2024 Glucose quantitative blood xcpt reagent strip Steven De La Cruz MD Work Phone: Start: 11-05-2024 Basic metabolic pane l calcium total Shey Trujillo MD Work Phone: Start: 11-04-2024 Glucose quantitative blood xcpt reagent strip Steven De La Cruz MD Work Phone: Start: 11-04-2024 Glucose quantitative blood xcpt reagent strip Steven De La Cruz MD Work Phone: Start: 11-04-2024 Glucose quantitative blood xcpt reagent strip Steven De La Cruz MD Work Phone: Start: 11-04-2024 Glucose quantitative blood xcpt reagent strip Steven De La Cruz MD Work Phone: Start: 11-04-2024 Basic metabolic pane l calcium total Shey Trujillo MD Work Phone: Start: 11-03-2024 Glucose quantitative blood xcpt reagent strip Steven De La Cruz MD Work Phone: Start: 11-03-2024 Glucose quantitative blood xcpt reagent strip Steven De La Cruz MD Work Phone: Start: 11-03-2024 Glucose quantitative blood xcpt reagent strip Steven De La Cruz MD Work Phone: Start: 11-03-2024 Glucose quantitative blood xcpt reagent strip Steven De La Cruz MD Work Phone: Start: 11-02-2024 Glucose quantitative blood xcpt reagent strip Steven De La Cruz MD Work Phone: Start: 11-02-2024 Bacteria identified in Blood by Culture Lona Quintanilla MD Work Phone: Start: 11-02-2024 Glucose quantitative blood xcpt reagent strip Steven De La Cruz MD Work Phone: Start: 11-02-2024 End: 11-02-2024 Glucose quantitative blood xcpt reagent strip Steven De La Cruz MD Work Phone: Start: 11-02-2024 POCT GLUCOSE METER UNSOLICITED RESULTS Steven De La Cruz MD Work Phone: Start: 11-02-2024 Glucose quantitative blood xcpt reagent strip Steven De La Cruz MD Work Phone: Start: 11-02-2024 Basic metabolic pane l calcium total Shey Trujillo MD Work Phone: Start: 11-02-2024 Drug screen quantita tive vancomycin Steven De La Cruz MD Work Phone: Start: 11-01-2024 Glucose quantitative blood xcpt reagent strip Steven De La Cruz MD Work Phone: Start: 11-01-2024 Glucose quantitative blood xcpt reagent strip Steven De La Cruz MD Work Phone: Start: 11-01-2024 Glucose quantitative blood xcpt reagent strip Steven De La Cruz MD Work Phone: Start: 11-01-2024 End: 11-01-2024 Blood count hematocrit Zeferino Correia MD Work Phone: Start: 11-01-2024 Compatibility each u nit electronic Zeferino Correia MD Work Phone: Start: 11-01-2024 Antibody screen BJORN JOSIE ALCARAZ Comment on above: Performed By: #### L [id number] ####Hoistman: RELL AMAYA ([id number])[facility] ([facility])[address] [place] [address] Start: 11-01-2024 ABO and Rh group [Ty pe] in Blood by Confirmatory method Zeferino Correia MD Work Phone: Start: 11-01-2024 Blood typing serologic abo Zeferino Correia MD Work Phone: Start: 11-01-2024 Drug screen quantita tive vancomycin Henry I Valeria [employer] Work Phone: Start: 11-01-2024 Basic metabolic pane l calcium total Shey Trujillo MD Work Phone: Start: 10-31-2024 Glucose quantitative blood xcpt reagent strip Shey Trujillo MD Work Phone: Start: 10-31-2024 Cul bact xcpt urine blood/stool aerobic isol Shey Trujillo MD Work Phone: Start: 10-31-2024 Ct abdomen & pelvis w/contrast material Henry I Valeria [employer] Work Phone: Start: 10-31-2024 Glucose quantitative blood xcpt reagent strip Shey Trujillo MD Work Phone: Start: 10-31-2024 AEROBIC AND ANAEROBI C CULTURE WITH STAIN Henry I Valeria [employer] Work Phone: Start: 10-31-2024 Cul bact xcpt urine blood/stool aerobic isol Henry I Valeria [employer] Work Phone: Start: 10-31-2024 BLOOD CULTURE IDENTIFICATION - AEROBIC Henry I Valeria [employer] Work Phone: Start: 10-31-2024 C-reactive protein Denny Madrigallane [employer] Work Phone: Start: 10-31-2024 Comprehensive metabo lic panel Henry Jones CNP Work Phone: Start: 10-31-2024 Manual Differential panel - Blood Henry Jones CNP Work Phone: Start: 10-31-2024 End: 10-31-2024 Bacteria identified in Blood by Culture Henry Jones CNP Work Phone: Start: 10-31-2024 Radiologic exam ches t single view Henry Jones CNP Work Phone: Start: 10-31-2024 Glucose quantitative blood xcpt reagent strip Shey Trujillo MD Work Phone: Start: 10-31-2024 Computed tomography of abdomen and pelvis with intravenous contrast Dr. Olya Piña MD Start: 10-31-2024 Urine microscopy: red cells Dr. Olya Piña MD Start: 10-31-2024 Urnls dip stick/tabl et reagent auto microscopy Dr. Olya Piña MD Start: 10-30-2024 Blood count smear mc rscp w/mnl difrntl wbc count Dr. Olya Piña MD Start: 10-30-2024 Calculation of international normalized ratio Dr. Olya Piña MD Start: 10-30-[address] Olya Piña MD Start: 10-30-2024 Mean corpuscular hem oglobin concentration determination Dr. Olya Piña MD Start: 10-30-2024 Nucleated red blood cell count procedure Dr. Olya Piña MD Start: 10-30-2024 Platelet mean volume determination Dr. Olya Piña MD Start: 10-30-2024 Plain chest X-ray Dr. Varghese Piañ MD Start: 10-30-[address] Olya Piña MD Start: 10-30-2024 Mean corpuscular hem oglobin concentration determination Dr. Olya Piña MD Start: 10-30-2024 Platelet mean volume determination Dr. Olya Piña MD Start: 10-30-2024 Serum inorganic phos phate measurement Dr. Olya Piña MD Start: 10-26-2024 Mean corpuscular hem oglobin concentration determination Dr. Olya Piña MD Start: 10-26-2024 Platelet mean volume determination Dr. Olya Piña MD Start: 10-26-2024 Serum inorganic phos phate measurement Dr. Olya Piña MD Start: 10-24-[address] Olya Piña MD Start: 10-24-[address] Oyla Piña MD Start: 10-24-2024 Mean corpuscular hem oglobin concentration determination Dr. Olya Piña MD Start: 10-24-2024 Platelet mean volume determination Dr. Olya Piña MD Start: 10-24-2024 Serum inorganic phos phate measurement Dr. Olya Piña MD Start: 10-18-2024 Mean corpuscular hem oglobin concentration determination Dr. Olya Piña MD Start: 10-18-2024 Platelet mean volume determination Dr. Olya Piña MD Start: 10-18-2024 Serum inorganic phos phate measurement Dr. Olya Piña MD Start: 10-16-[address] Olya Piña MD Start: 10-16-[address] Olya Piña MD Start: 10-16-2024 Mean corpuscular hem oglobin concentration determination Dr. Olya iPña MD Start: 10-16-2024 Platelet mean volume determination Dr. Olya Piña MD Start: 10-16-2024 Serum inorganic phos phate measurement Dr. Olya Piña MD Start: 10-12-2024 Mean corpuscular hem oglobin concentration determination Dr. Olya Piña MD Start: 10-12-2024 Platelet mean volume determination Dr. Olya Piña MD Start: 10-12-2024 Serum inorganic phos phate measurement Dr. Olya Piña MD Start: 10-09-[address] Olya Piña MD Start: 10-09-2024 Mean corpuscular hem oglobin concentration determination Dr. Olya Piña MD Start: 10-09-2024 Platelet mean volume determination Dr. Olya Piña MD Start: 10-09-2024 Serum inorganic phos phate measurement Dr. Olya Piña MD Start: 10-06-[address] Olya Piña MD Start: 10-06-2024 Mean corpuscular hem oglobin concentration determination Dr. Olya Piña MD Start: 10-06-2024 Platelet mean volume determination Dr. Olya Piña MD Start: 10-06-2024 Serum inorganic phos phate measurement Dr. Olya Piña MD Start: 10-04-[address] Olya Piña MD Start: 10-04-2024 Mean corpuscular hem oglobin concentration determination Dr. Olya Piña MD Start: 10-04-2024 Platelet mean volume determination Dr. Olya Piña MD Start: 10-04-2024 Serum inorganic phos phate measurement Dr. Olya Piña MD Start: 10-02-[address] Olya Piña MD Start: 10-02-2024 Mean corpuscular hem oglobin concentration determination Dr. Olya Piña MD Start: 10-02-2024 Platelet mean volume determination Dr. Olya Piña MD Start: 10-02-2024 Serum inorganic phos phate measurement Dr. Olya Piña MD Start: 09-29-[address] Olya Piña MD Start: 09-29-2024 Mean corpuscular hem oglobin concentration determination Dr. Olya Piña MD Start: 09-29-2024 Platelet mean volume determination Dr. Olya Piña MD Start: 09-29-2024 Serum inorganic phos phate measurement Dr. Olya Piña MD Start: 09-27-2024 Mean corpuscular hem oglobin concentration determination Dr. Olya Piña MD Start: 09-27-2024 Platelet mean volume determination Dr. Olya Piña MD Start: 09-27-2024 Serum inorganic phos phate measurement Dr. Olya Piña MD Start: 09-25-[address] Olya Piña MD Start: 09-25-2024 Mean corpuscular hem oglobin concentration determination Dr. Olya Piña MD Start: 09-25-2024 Platelet mean volume determination Dr. Olya Piña MD Start: 09-25-2024 Serum inorganic phos phate measurement Dr. Olya Piña MD Start: 09-22-[address] Olya Piña MD Start: 09-22-2024 Mean corpuscular hem oglobin concentration determination Dr. Olya Piña MD Start: 09-22-2024 Platelet mean volume determination Dr. Olya Piña MD Start: 09-22-2024 Serum inorganic phos phate measurement Dr. Olya Piña MD Start: 09-20-[address] Olya Piña MD Start: 09-20-2024 Mean corpuscular hem oglobin concentration determination Dr. Olya Piña MD Start: 09-20-2024 Platelet mean volume determination Dr. Olya Piña MD Start: 09-20-2024 Serum inorganic phos phate measurement Dr. Olya Piña MD Start: 09-18-[address] Olya Piña MD Start: 09-18-2024 Mean corpuscular hem oglobin concentration determination Dr. Olya Piña MD Start: 09-18-2024 Platelet mean volume determination Dr. Olya Piña MD Start: 09-18-2024 Serum inorganic phos phate measurement Dr. Olya Piña MD Start: 09-15-[address] Olya Piña MD Start: 09-15-2024 Mean corpuscular hem oglobin concentration determination Dr. Olya Piña MD Start: 09-15-2024 Platelet mean volume determination Dr. Olya Piña MD Start: 09-15-2024 Serum inorganic phos phate measurement Dr. Olya Piña MD Start: 09-13-[address] Olya Piña MD Start: 09-13-2024 Mean corpuscular hem oglobin concentration determination Dr. Olya Piña MD Start: 09-13-2024 Platelet mean volume determination Dr. Olya Piña MD Start: 09-13-2024 Serum inorganic phos phate measurement Dr. Olya Piña MD Start: 09-11-[address] Olya Pñia MD Start: 09-11-2024 Mean corpuscular hem oglobin concentration determination Dr. Olya Piña MD Start: 09-11-2024 Platelet mean volume determination Dr. Olya Piña MD Start: 09-11-2024 Serum inorganic phos phate measurement Dr. Olya Piña MD Start: 09-08-[address] Olya Piña MD Start: 09-08-2024 Mean corpuscular hem oglobin concentration determination Dr. Olya Piña MD Start: 09-08-2024 Platelet mean volume determination Dr. Olya Piña MD Start: 09-08-2024 Serum inorganic phos phate measurement Dr. Olya Piña MD Start: 09-06-[address] Olya Piña MD Start: 09-06-2024 Mean corpuscular hem oglobin concentration determination Dr. Olya Piña MD Start: 09-06-2024 Platelet mean volume determination Dr. Olya Piañ MD Start: 09-06-2024 Serum inorganic phos phate measurement Dr. Olya Piña MD Start: 09-04-[address] Olya Piña MD Start: 09-04-[address] Olya Piña MD Start: 09-04-2024 Mean corpuscular hem oglobin concentration determination Dr. Olya Piña MD Start: 09-04-2024 Platelet mean volume determination Dr. Olya Piña MD Start: 09-04-2024 Serum inorganic phos phate measurement Dr. Olya Piña MD Start: 09-04-2024 Vitamin D, 25-hydrox y measurement Dr. Olya Piña MD Start: 09-01-[address] Olya Piña MD Start: 09-01-2024 Mean corpuscular hem oglobin concentration determination Dr. Olya Piña MD Start: 09-01-2024 Platelet mean volume determination Dr. Olya Piña MD Start: 09-01-2024 Serum inorganic phos phate measurement Dr. Olya Piña MD Start: 08-30-[address] Olya Piña MD Start: 08-30-2024 Mean corpuscular hem oglobin concentration determination Dr. Olya Piña MD Start: 08-30-2024 Platelet mean volume determination Dr. Olya Piña MD Start: 08-30-2024 Serum inorganic phos phate measurement Dr. Olya Piña MD Start: 08-28-[address] Olya Piña MD Start: 08-28-2024 Mean corpuscular hem oglobin concentration determination Dr. Olya Piña MD Start: 08-28-2024 Platelet mean volume determination Dr. Olya Piña MD Start: 08-28-2024 Serum inorganic phos phate measurement Dr. Olya Piña MD Start: 08-25-[address] Olya Piña MD Start: 08-25-2024 Mean corpuscular hem oglobin concentration determination Dr. Olya Piña MD Start: 08-25-2024 Platelet mean volume determination Dr. Olya Piña MD Start: 08-25-2024 Serum inorganic phos phate measurement Dr. Olya Piña MD Start: 08-14-2024 Lipid 1996 panel - S bruno or Plasma Mia Shea MD Work Phone: Plan of Treatment Date Care Activity Detail Author Start: 2030 RSV Immunization for Adults (1 - 1-dose 75+ series) RSV Immunization for Adults (1 - 1-dose 75+ series) [facility] Start: 2030 [facility] Start: 08-14-2029 Lipid panel [facility] Start: 08-24-2027 Diabetes Screening Diabetes Screenin g [facility] Start: 03-29-2027 Screening colonoscopy COLONOSCOPY [facility] Work Phone: Start: 03-29-2027 Tetanus vaccination TETANUS EVERY 10 YR [facility] Work Phone: Start: 08-15-2025 Screening for malign ant neoplasm of colon [facility] Start: 08-10-2025 Hemoglobin A1c measurement Diabetes: Hemoglobin A1C [facility] Start: 01-29-2025 Influenza vaccination Influenz a Vaccine (Season Ended) [facility] Start: 01-29-2025 [facility] Start: 12-06-2024 End: 12-06-2024 Patient encounter procedure 12/06/2024 9:00 AM EDT Appointment [facility] - [employer] [address] [place] [address] Phu Eckert, [address] [place] [address] [facility] - [employer] Start: 10-31-2024 End: 10-31-2024 [facility] Start: 10-31-2024 [facility] Start: 10-30-2024 End: 10-30-2024 [facility] Start: 10-30-2024 Blood culture [facility] Start: 10-30-2024 [facility] Start: 10-25-2024 End: 10-25-2024 Patient encounter procedure 10/25/2024 2:00 PM EDT Office Visit Colorectal Surgery [address] [address] Raul Angel MD [address] [place] [address] Colocutaneous fistula [K63.2] Colorectal Surgery Comment on above: Colocutaneous fistul a [K63.2] Start: 05-31-2024 Advance Directive Discussion Advance Directive Discussion [facility] Start: 01-30-2024 Covid-19 Vaccine ( season) Covid-19 Vaccine ( season) [facility] Start: 01-30-2024 Influenza vaccination Influenza Vacc ine (#1) [facility] Start: 01-30-2024 [facility] Start: 2020 Screening for osteoporosis Bone Density Screening [facility] Start: 03-29-2020 Screening for malign ant neoplasm of cervix PAP SMEAR [facility] Work Phone: Start: 07-28-2017 HEMOGLOBIN A1C HEMOGLOBIN A1C [facility] Work Phone: Start: 07-28-2017 Hemoglobin A1c/Hemoglobin.total mass fraction (Bld) HEMOGLOBIN A1C [facility] Work Phone: Start: 06-01-2017 Ambulatory 06/01/2017 Off ice Visit Primary Care Pravin Vincent MD [address] [place] [address] [facility] Start: 03-29-2017 Ambulatory 03/29/2017 Off ice Visit Primary Care Pravin Vincent MD [address] [place] [address] [facility] Start: 01-29-2017 SEQUENTIAL INFLUENZA VACCINE (#1) SEQUENTIAL INFLUENZA VACCINE (#1) [facility] Work Phone: Start: 2015 RSV High Risk: (Elde rly (60+) or Population) (1 - Risk 60-74 years 1-dose series) RSV High Risk: (Elderly (60+) or Population) (1 - Risk 60-74 years 1-dose series) [facility] Start: 2015 RSV Vaccine (1 - Ris k 60-74 years 1-dose series) RSV Vaccine (1 - Risk 60-74 years 1-dose series) [facility] Start: 2015 Zoster vacc, sc ZOSTER VACCINE [facility] Work Phone: Start: 05-31-2011 Ophthalmic examinati on and evaluation OPHTHALMOLOGY EXAM [facility] Work Phone: Start: 2005 Pneumococcal Vaccine : 50+ (1 of 1 - PCV) Pneumococcal Vaccine: 50+ (1 of 1 - PCV) [facility] Start: 2005 Pneumococcal Vaccine : 50+ Years (1 of 1 - PCV) Pneumococcal Vaccine: 50+ Years (1 of 1 - PCV) [facility] Start: 2005 Screening for malign ant neoplasm of lung [facility] Start: 2005 Shingrix Vaccine (1 of 2) Shingrix Vaccine (1 of 2) [facility] Start: 2005 Zoster Vaccines (1 of 2) Zoste r Vaccines (1 of 2) [facility] Start: 2005 [facility] Start: 2000 Screening for malign ant neoplasm of colon [facility] Start: 1995 Screening for malign ant neoplasm of breast [facility] Start: 1977 DTaP/Tdap/Td Vaccine s (1 - Tdap) DTaP/Tdap/Td Vaccines (1 - Tdap) [facility] Start: 1974 DTaP/Tdap/Td Vaccine s (1 - Tdap) DTaP/Tdap/Td Vaccines (1 - Tdap) [facility] Start: 1974 Pneumococcal vaccination Pneum ococcal Vaccine (1 of 2 - PCV) [facility] Start: 1974 Urine microalbumin profile DTaP,Tdap,Td Vaccine (1 - Tdap) [facility] Start: 1974 [facility] Start: 1973 Anxiety Screening Anxiety Screening [facility] Start: 1973 Depression Screening Depression Scre ing [facility] Start: 1973 Hepatitis C screening C [facility] Start: 1967 Depression Screening Depression Scre ing [facility] Start: 1967 [facility] Start: 1965 Diabetic foot examination (regime/therapy) FOOT EXAM [facility] Work Phone: Start: 1965 FOOT EXAM FOOT EXAM [facility] Work Phone: Start: 1965 OPHTHALMOLOGY EXAM OPHTHALMOLOGY EXA M [facility] Work Phone: Start: 1965 URINE MICROALBUMIN URINE MICROALBUMI N [facility] Work Phone: Start: 1965 Urine, microalbumin URINE MICROALBUM IN [facility] Work Phone: Start: 1955 Colonoscopy COLONOSCOPY [facility] Work Phone: Start: 1955 Cytopathology proced ure, preparation of smear, genital source PAP SMEAR [facility] Work Phone: Start: 1955 HEPATITIS C SCREENING HEPATITIS C SC REENING [facility] Work Phone: Start: [address] Low-dose CT Lung Can cer Screen Low-dose CT Lung Cancer Screen [facility] Work Phone: Start: 1955 Medicare Annual Well ness (AWV) Medicare Annual Wellness (AWV) [facility] Start: 1955 Medicare Annual Well ness Visit Medicare Annual Wellness Visit (AWV) [facility] Start: 1955 Screening for malign ant neoplasm of colon [facility] Start: 1955 Screening for osteoporosis [facility] Start: 1955 TETANUS EVERY 10 YR TETANUS EVERY 10 YR [facility] Work Phone: Start: [facility] End: 10-31-2024 Aerobic and Anaerobic Culture with Stain [facility] Comment on above: Once (Lab) for 1 Occ urrences starting 10/31/2024 until 10/31/2024 End: 03-29-2018 CHACHO CHACHO Routine Elevated sed rate 1 Occurrences starting 03/29/2017 until 03/29/2018 [facility] Work Phone: Bacteria identified in Blood by Culture [facility] Bacteria identified in Catheter tip by Culture Culture, Cath Tip Microbiology Routine 10/31/2024 4:38 PM EDT [facility] Bacteria identified in Unspecified specimen by Aerobe culture Culture, Aerobic Bacteria with Gram Stain Microbiology Routine 10/31/2024 2:31 PM EDT [facility] End: 10-31-2024 Bacteria identified in Unspecified specimen by Anaerobe culture [facility] Comment on above: Once for 1 Occurrenc es starting 10/31/2024 until 10/31/2024 Basic metabolic 1998 panel - Serum or Plasma Basic Metabolic Panel w/ Mg Reflex Lab Routine Daily (Lab) until discontinued starting 11/01/2024, 1 completed [facility] Comment on above: Daily (Lab) until di scontinued starting 11/01/2024, 1 completed End: 11-02-2024 Basic metabolic 1998 panel - Serum or Plasma Basic metabolic panel Lab Timed Once for 1 Occurrences starting 11/02/2024 until 11/02/2024 [facility] Comment on above: Once for 1 Occurrenc es starting 11/02/2024 until 11/02/2024 End: 03-29-2018 Basic metabolic panel [AGGREGATE] Basic Metabolic Panel Routine Stage 3 chronic kidney disease Hypokalemia Hyponatremia 1 Occurrences starting 03/29/2017 until 03/29/2018 [facility] Work Phone: End: 01-26-2018 CBC and Differential CBC and Differential Routine Weight loss 1 Occurrences starting 01/26/2017 until 01/26/2018 [facility] Work Phone: CBC W Auto Different ial panel - Blood CBC auto differential Lab Routine Daily (Lab) until discontinued starting 11/01/2024, 1 completed [facility] Comment on above: Daily (Lab) until di scontinued starting 11/01/2024, 1 completed End: 03-29-2018 Cobalamins (Vitamin B12) Vitamin B12 Routine Elevated sed rate 1 Occurrences starting 03/29/2017 until 03/29/2018 [facility] Work Phone: End: 01-26-2018 Comprehensive metabolic panel [AGGREGATE] Comprehensive Metabolic Panel Routine Type 2 diabetes mellitus without complication, without long-term current use of insulin (HCC) Weight loss Hypokalemia 1 Occurrences starting 01/26/2017 until 01/26/2018 [facility] Work Phone: Dressing Order: Soap & water; Collagen; Daily; ABDs; Kerlex, Silk tape, Medfix tape; Santyl Dressing Order: Soap & water; Collagen; Daily; ABDs; Kerlex, Silk tape, Medfix tape; Santyl Wound Ostomy Routine Ordered: 11/22/2024 [facility] Work Phone: Comment on above: Ordered: 11/22/2024 End: 01-26-2018 Erythrocyte sedimentation rate Sedimentation Rate Routine Weight loss 1 Occurrences starting 01/26/2017 until 01/26/2018 [facility] Work Phone: End: 03-29-2018 External Lab CPK External Lab CPK Routine Elevated sed rate 1 Occurrences starting 03/29/2017 until 03/29/2018 [facility] Work Phone: End: 03-29-2018 Folate Folate Routine Elevated sed rate 1 Occurrences starting 03/29/2017 until 03/29/2018 [facility] Work Phone: End: 11-01-2024 Hemoglobin.gastrointesti nal.lower [Presence] in Stool by Immunoassay --1st specimen [facility] Comment on above: Once (Lab) for 1 Occ urrences starting 11/01/2024 until 11/01/2024 Initiate Oxygen Ther apy Protocol Initiate Oxygen Therapy Protocol Respiratory Care Routine As needed until discontinued starting 10/31/2024 [email or web address] Work Phone: Comment on above: As needed until disc ontinued starting 10/31/2024 End: 03-29-2018 Iron Study with Ferritin Iron Study with Ferritin Routine Hypochromic anemia 1 Occurrences starting 03/29/2017 until 03/29/2018 [facility] Work Phone: End: 01-26-2018 Magnesium Magnesium Routine Weight loss 1 Occurrences starting 01/26/2017 until 01/26/2018 [facility] Work Phone: End: 03-29-2018 Occult Blood Immunoassay Occult Blood Immunoassay Routine Hypochromic anemia 1 Occurrences starting 03/29/2017 until 03/29/2018 [facility] Work Phone: Patient referral [facility] Work Phone: End: 11-30-2024 POCT glucose check POCT glucose check Point of Care Testing - Docked Device Routine 4 times daily before meals and at bedtime for 30 Days starting 10/31/2024 until 11/30/2024, 5 completed [email or web address] Work Phone: Comment on above: 4 times daily before meals and at bedtime for 30 Days starting 10/31/2024 until 11/30/2024, 5 completed POCT glucose check p er Hypoglycemia Treatment Orders protocol management POCT glucose check per Hypoglycemia Treatment Orders protocol management Point of Care Testing - Docked Device STAT As needed (Lab) until discontinued starting 10/31/2024 [facility] Comment on above: As needed (Lab) unti l discontinued starting 10/31/2024 End: 03-29-2018 Protein Electrophoresis, Serum Protein Electrophoresis, Serum Routine Elevated sed rate 1 Occurrences starting 03/29/2017 until 03/29/2018 [facility] Work Phone: Transfuse RBC: 1 Units [facility] [employer] Work Phone: End: 10-31-2024 Urinalysis complete panel - Urine Complete Urinalysis with reflex to Culture Lab Routine Once (Lab) for 1 Occurrences starting 10/31/2024 until 10/31/2024 [facility] Comment on above: Once (Lab) for 1 Occ urrences starting 10/31/2024 until 10/31/2024 Urine culture [facility] End: 11-02-2024 Vancomycin, random Vancomycin, random Lab Routine Morning draw (Lab) for 1 Occurrences starting 11/02/2024 until 11/02/2024 [facility] Work Phone: Comment on above: Morning draw (Lab) f or 1 Occurrences starting 11/02/2024 until 11/02/2024 Zinc [Mass/volume] i n Serum or Plasma [facility] Payers Date Payer Category Payer Self-pay 2024 Medicaid [id number] 2024 Medicaid [id number] 2020 Medicare [id number] 2020 Medicare [id number] 2017 Unknown 2015 Unknown [id number]. [id number] 1955 Unknown [id number] [id number] 1955 Unknown [id number] Unknown [id number] [id number] [id number] Unknown [id number] [id number] Unknown [id number] 2.16.8 [id number] Unknown [id number] [id number] Unknown [id number] [id number] Social History Date Type Detail Facility Start: 01-27-2017 End: 03-29-2017 Tobacco smoking status [facility] Heavy tobacco smoker [facility] Work Phone: Start: 05-31-1959 End: 05-31-2024 History of tobacco use Cigarette Smoker [facility] [id number] Phone: Start: 01-27-2017 End: 10-31-2024 Cigarettes smoked current (pack per day) - Reported [facility] Start: 1955 Sex Assigned At Not on file [facility] Work Phone: Start: 09-25-2024 End: 10-31-2024 Tobacco smoking status [facility]IS Ex-smoker [facility] Start: 05-31-1959 End: 05-31-2024 History of tobacco use Current smoker [facility] Start: 09-25-2024 End: 10-31-2024 Tobacco use and exposure Smokeless tobacco non-user [facility] Start: 09-20-2024 End: 09-25-2024 Alcoholic beverage intake Ex-drinker (finding) [facility] Start: 09-25-2024 End: 10-31-2024 Tobacco use panel [facility] National Score (1-10 0), lower number is lower risk 91 [facility] Within the last year , have you been afraid of your partner or ex-partner? No [facility] Work Phone: How often to you hav e a drink containing alcohol? Never [facility] Work Phone: How hard is it for y ou to pay for the very basics like food, housing, medical care, and heating Somewhat hard [facility] (I/We) worried wheth er (my/our) food would run out before (I/we) got money to buy more. Sometimes true [facility] Work Phone: Start: 09-20-2024 Tobacco Comment Quit July 2024 [facility] Work Phone: Start: 09-10-2024 End: 09-20-2024 Exposure to SARS-CoV-2 (event) Not sure [facility] Start: 10-31-2024 Tobacco smoking stat us CTIS Never smoked tobacco (finding) [facility] Start: 1955 Sex Assigned At Female [facility] Start: 10-31-2024 End: 11-23-2024 Alcoholic beverage intake Lifetime non-drinker (finding) [facility] (I/We) worried wheth er (my/our) food would run out before (I/we) got money to buy more. Never true [facility] Start: 10-31-2024 Sex Female (finding) [facility] Functional Status Date Assessment Result Facility [facility] Mental Status Date Assessment Result Facility 10-31-2024 Cognitive function Awake;Alert;A ppropriate;Fol lows Commands [facility] Work Phone: Clinical Notes 09-20-2024 to 11-22-2024 Bjorn Hudson MD - 11/22/2024 8:30 AM Kishore Corbett RN - 11/22/2024 8:30 AM Tobias Hudson MD - 11/22/2024 8:30 AM Kishore Corbett RN - 11/22/2024 8:30 AM EDTPatient Instructions Note Date & Type Note Facility 11-22-2024 History of Presen t illness Narrative INITIAL VISIT - WOUND CARE Yoko Emanuel AGE: 69 y.o. GENDER: female : 1955 TODAY'S DATE: 11/22/2024 HISTORY OF PRESENT ILLNESS: Yoko Emanuel is a 69 y.o. female who presents today for evaluation of multiple pressure ulcers and abd. Fistulae (?colocutaneous). She is chronically malnourished, suffers deconditioning, and is wheel chair bound from weakness. She is referred from [facility] at this time (Which coincides with loss of medicare coverage.) She has been at [facility] near [place] for 7 wks. She was admitted and treated at [facility] for sepsis and underwen trans met. Amp. Right foot, apparently for osteomyelitis. She was in palliative care during recovery. Pt. 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 She states she "cares for it herself" and refuses ostomy care. Current pressure ulcers involve both heels, achilles, and sacrum. She has a non-heeling wound/ulcer at amp. Site of foot. 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) Pressure ulcer of sacral region, stage 3 (HCC) Review of Systems: General: Fever: Negative Night Sweats: Negative Eye: Blurry Vision:Negative Double Vision: Negative Ent: Headaches: Negative Sore throat: neg Ear pain or drainage: Negative Allergy/Immunology: Hives: Negative Hematology/Lymphatic: Bleeding Problems: Negative Blood Clots: Negative Swollen Lymph Nodes: Negative Lungs: Cough: Negative SOB: Negative Cardiovascular: Chest Pain: Negative Palpitations:Negative GI: Nausea/Vomiting: Negative Abdominal Pain: Negative Change in Bowels: Positive for see above re: fistulae : Dysuria: Negative Increase Urinary Frequency/Urgency: Negative Neuro: Seizures: Negative Confusion: Negative PAST MEDICAL HISTORY: No family history on file. Social History Socioeconomic History Marital status: Spouse name: Not on file Number of children: Not on file Years of education: Not on file Highest education level: Not on file Occupational History Not on file Tobacco Use Smoking status: Former Packs/day: 0.00 Years: 2.0 packs/day for 65.0 years (130.0 ttl pk-yrs) Types: Cigarettes Start date: 1959 Quit date: 05/2024 Years since quittin.4 Smokeless tobacco: Never Substance and Sexual Activity Alcohol use: Never Drug use: Never Sexual activity: Not on file Other Topics Concerns: Not on file Social History Narrative Not on file Social Drivers of Health Financial Resource Strain: Not on file Food Insecurity: No Food Insecurity (10/31/2024) Hunger Vital Sign Worried About Running Out of Food in the Last Year: Never true Ran Out of Food in the Last Year: Never true Transportation Needs: No Transportation Needs (10/31/2024) PRAPARE - Transportation Lack of Transportation (Medical): No Lack of Transportation (Non-Medical): No Physical Activity: Not on file Stress: Not on file Social Connections: Not on file Intimate Partner Violence: Not At Risk (10/31/2024) Humiliation, Afraid, Rape, and Kick questionnaire Fear of Current or Ex-Partner: No Emotionally Abused: No Physically Abused: No Sexually Abused: No Housing Stability: Low Risk (10/31/2024) Housing Stability Vital Sign Unable to Pay for Housing in the Last Year: No Number of Times Moved in the Last Year: 1 Homeless in the Last Year: No No past surgical history on file. No past medical history on file. Current Outpatient Medications: acetaminophen (Tylenol) 325 MG tablet, Take 650 mg by mouth every 4 hours as needed for fever (pain)., Disp: , Rfl: aluminum-magnesium hydroxide 200-200 MG/5ML suspension, Take 30 mL by mouth every 4 hours as needed (GI distress)., Disp: , Rfl: aspirin 81 MG EC tablet, Take 81 mg by mouth daily., Disp: , Rfl: atorvastatin (Lipitor) 80 MG tablet, Take 80 mg by mouth Nightly., Disp: , Rfl: benzonatate (Tessalon) 100 MG capsule, Take 100 mg by mouth 3 times daily as needed for cough. Do not crush or chew., Disp: , Rfl: bisacodyl (Dulcolax) 10 MG suppository, Insert 10 mg into the rectum. As needed for constipation x1 per episode if MOM ineffective, Disp: , Rfl: citalopram (CeleXA) 10 MG tablet, Take 10 mg by mouth daily., Disp: , Rfl: ferrous sulfate 325 (65 Fe) MG EC tablet, Take 325 mg by mouth daily (with breakfast). Do not crush, chew, or split., Disp: , Rfl: gabapentin (Neurontin) 300 MG capsule, Take 1 capsule (300 mg) by mouth 3 times daily., Disp: , Rfl: glucose (Glutose) 40 % gel oral gel, Take 15 g by mouth. As needed for hypoglycemic episode, Disp: , Rfl: guaiFENesin (Humibid 3) 400 MG tablet, Take 400 mg by mouth 3 times daily as needed for congestion., Disp: , Rfl: heparin 5000 UNIT/ML injection, Inject 5,000 Units under the skin every 12 hours., Disp: , Rfl: hydrOXYzine pamoate (Vistaril) 25 MG capsule, Take 25 mg by mouth every 4 hours as needed for itching or anxiety. X 2 weeks until 11/09/24, Disp: , Rfl: magnesium hydroxide (Milk of Magnesia) 400 MG/5ML suspension, Take 30 mL by mouth. As needed for constipation x1, Disp: , Rfl: mirtazapine (Remeron) 30 MG tablet, Take 30 mg by mouth Nightly., Disp: , Rfl: polyethylene glycol, PEG, 3350 (Miralax) 17 g packet, Take 17 g by mouth. As needed for constipation, Disp: , Rfl: sodium chloride 0.9 % bolus, 500 mL. Use 125 mL/hr intravenously in AM for hydration - run AFTER TPN for 4 hours to total 500mL, Disp: , Rfl: Sodium Phosphates (FLEET ENEMA RE), Insert 1 enema into the rectum. As needed for constipation x2 per episodes if Dulcolax suppository ineffective, Disp: , Rfl: Zinc Sulfate 220 (50 Zn) MG tablet, Take 220 mg by mouth 2 times daily., Disp: , Rfl: Allergies as of 11/22/2024 (No Known Allergies) - Reviewed 11/22/2024 PHYSICAL EXAM: Blood pressure 107/53, pulse 97, temperature 37.1 C (98.8 F), resp. rate 20. Gen: A and O x 3, Nad, extreme cachexia, deconditioning (73#) Eyes: Sclera non icterus, PERRL Head: Normocephalic, non-tender Neck: Supple, no adenopathy, thyroid non tender and no masses,no carotid bruits Lungs: CTA, symmetrical Chest: RRR, no murmurs Abd: Soft, NT, ND, no HSM, no hernias, no bruits; see below Ext: No edema, no cyanosis Psych: reveals appropriate mood, memory and judgment, Neuro: Reveals no gross motor or sensory deficits, Msk: 2/5 strength all 4 extremities, no joint tenderness Vascular: Pulses Fem + Pop DP/PT Assessment: BP 107/53 Pulse 97 Temp 37.1 C (98.8 F) Resp 20 Wound Reference Date is when first assessed. Measurements shown are from today's visit. Wound BP 107/53 Pulse 97 Temp 37.1 C (98.8 F) Resp 20 Wound : Abd - 2 fistulae LLQ with large amt. 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 Pt. Is extremely deconditioned and is refusing a great deal of care. She was in palliative care and may be a hospice candidate. Will treat ulcers and will try to talk her into ostomy care to manage her fistulae. Discussed appropriate home care of this wound. Wound redressed. Patient instructions were given. Follow up: 1-2 wks. Assessments Nursing Assessment/Reassessment Score (check box all that apply) Reassessment of Co-morbidities (includes updates in patient status) 10 [] Wound and Skin Assessment/Reassessment 5 [x] Reassessment of Adherence to Treatment Plan Simple Wound Assessment / Reassessment - one wound 5 [x] Complex Wound Assessment - multiple wounds (# of: ) multiply by 5 to get score [] Dermatologic / Skin Assessment (not related to wound area) 10 [] Focused Assessment Circumferential Edema Measurements - multi extremities (# of: ) multiply by 5 to get score [] Nutritional Assessment/Counseling/Interventi on 10 [] Lower Extremity Assessment (monofilament, tuning fork, pulses) 5 [] Peripheral Arterial Disease Assessment (using hand-held doppler) 10 [] Ostomy and/or Continence Assessment & Care Incontinence Assessment and Management 10 [] Ostomy Care Assessment and Management (repouching, etc) 20 [x] Process Coordination of Care Simple Patient/Family Education for ongoing care 15 [x] Complex (extensive) Patient/Family Education for ongoing of care 20 [] Staff obtains Consent, Records, Test Results/Process Orders 10 [x] Staff telephones [facility], Nursing Homes/Clarify Orders 10 [] Routine Transfer to another Facility (non-emergent condition) 10 [] Routine Hospital Admission (non-emergent condition) 10 [] New Admissions/Insurance Auth/Ordering NPWT, skin substitute, etc. 15 [] Emergency Hospital Admission (emergent condition) 20 [] Simple Discharge Coordination 10 [x] Complex (extensive) Discharge Coordination 15 [] Special Needs Pediatric / Minor Patient Management 10 [] Isolation Patient Management 10 [] Hearing/Language/Visual Special Needs 15 [] Assessment of Community Assistance (transportation, discharge planning) 15 [] Additional Assistance / Altered Mentation 15 [] Support Surface Assessment (bed, cushion, seat) 15 [] Interventions Wound Cleansing/Measurement Simple Wound Cleansing - one wound 5 [] Complex Wound Cleansing - multiple wounds (# of: 3) multiply by 5 to get score 15 [x] Wound Imaging (photographs - any number of wounds) 5 [x] Wound Tracing (instead of photographs) 5 [] Simple Wound Measurements - one wound 5 [x] Complex Wound Measuremnts - multiple wounds (#of: 3) multiply by 5 to get score 15 [x] Wound Dressings Small Wound Dressing - one or multiple wounds (# of: ) multiply by 10 to get score [] Medium Wound Dressing - one or multiple wounds (# of: 3 ) multiply by 15 to get score 15 [x] Large Wound Dressing - one or multiple wounds (# of: ) multiply by 20 to get score [] Application of Medications - topical 5 [x] Application of Medication - injection 10 [] Miscellaneous External Ear Exam Specimen Collection (culture, biopsies, blood, body fluids, etc) 5 [] Specimen/Culture sent or taken to lab for analysis 5 [] Patient Transfer (multiple staff/Tito lift) 10 [] Simple Staple/Suture Removal (25 or less) 5 [] Complex Staple/Suture Removal (26 or more) 10 [] Hypo/Hyperglycemic Management 10 [] Ankle/Brachial Index (ROSMERY) 15 [] Vital Signs 5 [x] Total Points - Use to Determine Level of Clinic Visit 130 Points Barriga: Level 1 (1-35 Points) Level 2 (40-75 Points) Level 3 (80-115 Points) Level 4 (120-155 Points) Level 5 (160 or more Points) documented in this encounter [facility] 11-22-2024 History of Presen t illness Narrative INITIAL VISIT - WOUND CARE Yoko Emanuel AGE: 69 y.o. GENDER: female : 1955 TODAY'S DATE: 11/22/2024 HISTORY OF PRESENT ILLNESS: Yoko Emanuel is a 69 y.o. female who presents today for evaluation of multiple pressure ulcers and abd. Fistulae (?colocutaneous). She is chronically malnourished, suffers deconditioning, and is wheel chair bound from weakness. She is referred from [facility] at this time (Which coincides with loss of medicare coverage.) She has been at [facility] near [place] for 7 wks. She was admitted and treated at [facility] for sepsis and underwen trans met. Amp. Right foot, apparently for osteomyelitis. She was in palliative care during recovery. Pt. 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 She states she "cares for it herself" and refuses ostomy care. Current pressure ulcers involve both heels, achilles, and sacrum. She has a non-heeling wound/ulcer at amp. Site of foot. 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) Pressure ulcer of sacral region, stage 3 (HCC) Review of Systems: General: Fever: Negative Night Sweats: Negative Eye: Blurry Vision:Negative Double Vision: Negative Ent: Headaches: Negative Sore throat: neg Ear pain or drainage: Negative Allergy/Immunology: Hives: Negative Hematology/Lymphatic: Bleeding Problems: Negative Blood Clots: Negative Swollen Lymph Nodes: Negative Lungs: Cough: Negative SOB: Negative Cardiovascular: Chest Pain: Negative Palpitations:Negative GI: Nausea/Vomiting: Negative Abdominal Pain: Negative Change in Bowels: Positive for see above re: fistulae : Dysuria: Negative Increase Urinary Frequency/Urgency: Negative Neuro: Seizures: Negative Confusion: Negative PAST MEDICAL HISTORY: No family history on file. Social History Socioeconomic History Marital status: Spouse name: Not on file Number of children: Not on file Years of education: Not on file Highest education level: Not on file Occupational History Not on file Tobacco Use Smoking status: Former Packs/day: 0.00 Years: 2.0 packs/day for 65.0 years (130.0 ttl pk-yrs) Types: Cigarettes Start date: 1959 Quit date: 05/2024 Years since quittin.4 Smokeless tobacco: Never Substance and Sexual Activity Alcohol use: Never Drug use: Never Sexual activity: Not on file Other Topics Concerns: Not on file Social History Narrative Not on file Social Drivers of Health Financial Resource Strain: Not on file Food Insecurity: No Food Insecurity (10/31/2024) Hunger Vital Sign Worried About Running Out of Food in the Last Year: Never true Ran Out of Food in the Last Year: Never true Transportation Needs: No Transportation Needs (10/31/2024) PRAPARE - Transportation Lack of Transportation (Medical): No Lack of Transportation (Non-Medical): No Physical Activity: Not on file Stress: Not on file Social Connections: Not on file Intimate Partner Violence: Not At Risk (10/31/2024) Humiliation, Afraid, Rape, and Kick questionnaire Fear of Current or Ex-Partner: No Emotionally Abused: No Physically Abused: No Sexually Abused: No Housing Stability: Low Risk (10/31/2024) Housing Stability Vital Sign Unable to Pay for Housing in the Last Year: No Number of Times Moved in the Last Year: 1 Homeless in the Last Year: No No past surgical history on file. No past medical history on file. Current Outpatient Medications: acetaminophen (Tylenol) 325 MG tablet, Take 650 mg by mouth every 4 hours as needed for fever (pain)., Disp: , Rfl: aluminum-magnesium hydroxide 200-200 MG/5ML suspension, Take 30 mL by mouth every 4 hours as needed (GI distress)., Disp: , Rfl: aspirin 81 MG EC tablet, Take 81 mg by mouth daily., Disp: , Rfl: atorvastatin (Lipitor) 80 MG tablet, Take 80 mg by mouth Nightly., Disp: , Rfl: benzonatate (Tessalon) 100 MG capsule, Take 100 mg by mouth 3 times daily as needed for cough. Do not crush or chew., Disp: , Rfl: bisacodyl (Dulcolax) 10 MG suppository, Insert 10 mg into the rectum. As needed for constipation x1 per episode if MOM ineffective, Disp: , Rfl: citalopram (CeleXA) 10 MG tablet, Take 10 mg by mouth daily., Disp: , Rfl: ferrous sulfate 325 (65 Fe) MG EC tablet, Take 325 mg by mouth daily (with breakfast). Do not crush, chew, or split., Disp: , Rfl: gabapentin (Neurontin) 300 MG capsule, Take 1 capsule (300 mg) by mouth 3 times daily., Disp: , Rfl: glucose (Glutose) 40 % gel oral gel, Take 15 g by mouth. As needed for hypoglycemic episode, Disp: , Rfl: guaiFENesin (Humibid 3) 400 MG tablet, Take 400 mg by mouth 3 times daily as needed for congestion., Disp: , Rfl: heparin 5000 UNIT/ML injection, Inject 5,000 Units under the skin every 12 hours., Disp: , Rfl: hydrOXYzine pamoate (Vistaril) 25 MG capsule, Take 25 mg by mouth every 4 hours as needed for itching or anxiety. X 2 weeks until 11/09/24, Disp: , Rfl: magnesium hydroxide (Milk of Magnesia) 400 MG/5ML suspension, Take 30 mL by mouth. As needed for constipation x1, Disp: , Rfl: mirtazapine (Remeron) 30 MG tablet, Take 30 mg by mouth Nightly., Disp: , Rfl: polyethylene glycol, PEG, 3350 (Miralax) 17 g packet, Take 17 g by mouth. As needed for constipation, Disp: , Rfl: sodium chloride 0.9 % bolus, 500 mL. Use 125 mL/hr intravenously in AM for hydration - run AFTER TPN for 4 hours to total 500mL, Disp: , Rfl: Sodium Phosphates (FLEET ENEMA RE), Insert 1 enema into the rectum. As needed for constipation x2 per episodes if Dulcolax suppository ineffective, Disp: , Rfl: Zinc Sulfate 220 (50 Zn) MG tablet, Take 220 mg by mouth 2 times daily., Disp: , Rfl: Allergies as of 11/22/2024 (No Known Allergies) - Reviewed 11/22/2024 PHYSICAL EXAM: Blood pressure 107/53, pulse 97, temperature 37.1 C (98.8 F), resp. rate 20. Gen: A and O x 3, Nad, extreme cachexia, deconditioning (73#) Eyes: Sclera non icterus, PERRL Head: Normocephalic, non-tender Neck: Supple, no adenopathy, thyroid non tender and no masses,no carotid bruits Lungs: CTA, symmetrical Chest: RRR, no murmurs Abd: Soft, NT, ND, no HSM, no hernias, no bruits; see below Ext: No edema, no cyanosis Psych: reveals appropriate mood, memory and judgment, Neuro: Reveals no gross motor or sensory deficits, Msk: 2/5 strength all 4 extremities, no joint tenderness Vascular: Pulses Fem + Pop DP/PT Assessment: BP 107/53 Pulse 97 Temp 37.1 C (98.8 F) Resp 20 Wound Reference Date is when first assessed. Measurements shown are from today's visit. Wound BP 107/53 Pulse 97 Temp 37.1 C (98.8 F) Resp 20 Wound : Abd - 2 fistulae LLQ with large amt. 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 Pt. Is extremely deconditioned and is refusing a great deal of care. She was in palliative care and may be a hospice candidate. Will treat ulcers and will try to talk her into ostomy care to manage her fistulae. Discussed appropriate home care of this wound. Wound redressed. Patient instructions were given. Follow up: 1-2 wks. Assessments Nursing Assessment/Reassessment Score (check box all that apply) Reassessment of Co-morbidities (includes updates in patient status) 10 [] Wound and Skin Assessment/Reassessment 5 [x] Reassessment of Adherence to Treatment Plan Simple Wound Assessment / Reassessment - one wound 5 [x] Complex Wound Assessment - multiple wounds (# of: ) multiply by 5 to get score [] Dermatologic / Skin Assessment (not related to wound area) 10 [] Focused Assessment Circumferential Edema Measurements - multi extremities (# of: ) multiply by 5 to get score [] Nutritional Assessment/Counseling/Interventi on 10 [] Lower Extremity Assessment (monofilament, tuning fork, pulses) 5 [] Peripheral Arterial Disease Assessment (using hand-held doppler) 10 [] Ostomy and/or Continence Assessment & Care Incontinence Assessment and Management 10 [] Ostomy Care Assessment and Management (repouching, etc) 20 [x] Process Coordination of Care Simple Patient/Family Education for ongoing care 15 [x] Complex (extensive) Patient/Family Education for ongoing of care 20 [] Staff obtains Consent, Records, Test Results/Process Orders 10 [x] Staff telephones [facility], Nursing Homes/Clarify Orders 10 [] Routine Transfer to another Facility (non-emergent condition) 10 [] Routine Hospital Admission (non-emergent condition) 10 [] New Admissions/Insurance Auth/Ordering NPWT, skin substitute, etc. 15 [] Emergency Hospital Admission (emergent condition) 20 [] Simple Discharge Coordination 10 [x] Complex (extensive) Discharge Coordination 15 [] Special Needs Pediatric / Minor Patient Management 10 [] Isolation Patient Management 10 [] Hearing/Language/Visual Special Needs 15 [] Assessment of Community Assistance (transportation, discharge planning) 15 [] Additional Assistance / Altered Mentation 15 [] Support Surface Assessment (bed, cushion, seat) 15 [] Interventions Wound Cleansing/Measurement Simple Wound Cleansing - one wound 5 [] Complex Wound Cleansing - multiple wounds (# of: 3) multiply by 5 to get score 15 [x] Wound Imaging (photographs - any number of wounds) 5 [x] Wound Tracing (instead of photographs) 5 [] Simple Wound Measurements - one wound 5 [x] Complex Wound Measuremnts - multiple wounds (#of: 3) multiply by 5 to get score 15 [x] Wound Dressings Small Wound Dressing - one or multiple wounds (# of: ) multiply by 10 to get score [] Medium Wound Dressing - one or multiple wounds (# of: 3 ) multiply by 15 to get score 15 [x] Large Wound Dressing - one or multiple wounds (# of: ) multiply by 20 to get score [] Application of Medications - topical 5 [x] Application of Medication - injection 10 [] Miscellaneous External Ear Exam Specimen Collection (culture, biopsies, blood, body fluids, etc) 5 [] Specimen/Culture sent or taken to lab for analysis 5 [] Patient Transfer (multiple staff/Tito lift) 10 [] Simple Staple/Suture Removal (25 or less) 5 [] Complex Staple/Suture Removal (26 or more) 10 [] Hypo/Hyperglycemic Management 10 [] Ankle/Brachial Index (ROSMERY) 15 [] Vital Signs 5 [x] Total Points - Use to Determine Level of Clinic Visit 130 Points Barriga: Level 1 (1-35 Points) Level 2 (40-75 Points) Level 3 (80-115 Points) Level 4 (120-155 Points) Level 5 (160 or more Points) documented in this encounter [facility] 11-22-2024 Hospital Discharg e instructions Kimmie Corbett RN - 11/22/2024 8:30 AM EDT Return Appointment in: 2 weeks- Should you experience any significant changes in your wound(s) or have any questions regarding your home care instructions please contact the wound center at [employer] - [phone]. If after regular business hours, please call your family doctor or local emergency room. Offloading: Heel suspension boot to: both feet Gel mattress overlay (Group 1) Roho cushion for wheelchair Turn and reposition every 2 hours Additional Orders/Instructions: Follow diet per physicians instructions - such as increasing protein intake to promote wound healing Nursing Care Facility: [facility] Wound Treatment: Wound: Left calf, Right amp site, right and left heels Dressing Frequency: Change dressing once a day Wound Cleansing: Cleanse affected area with soap and water - using a mild antibacterial soap such as Dial Topical: Santyl - apply nickel thickness amount to wound bed Secondary Dressing: ABD Secure With: Kerlex Roll gauze 4", Silk Tape 2" Wound Treatment: Wound: Sacrum Dressing Frequency: Change dressing once a day Wound Cleansing: Cleanse affected area with soap and water - using a mild antibacterial soap such as Dial Cydney-Wound Care: Skin Prep Primary Dressing: Collagen Secondary Dressing: ABD Secure With: Medfix tape 2" Recommend using an osotmy bag over fistula sites. ABD pads applied today in the clinic documented in this encounter [facility] 11-22-2024 Hospital Discharg e instructions Kimmie Corbett RN - 11/22/2024 8:30 AM EDT Return Appointment in: 2 weeks- Should you experience any significant changes in your wound(s) or have any questions regarding your home care instructions please contact the wound center at [place] - [phone]. If after regular business hours, please call your family doctor or local emergency room. Offloading: Heel suspension boot to: both feet Gel mattress overlay (Group 1) Roho cushion for wheelchair Turn and reposition every 2 hours Additional Orders/Instructions: Follow diet per physicians instructions - such as increasing protein intake to promote wound healing Nursing Care Facility: [facility] Wound Treatment: Wound: Left calf, Right amp site, right and left heels Dressing Frequency: Change dressing once a day Wound Cleansing: Cleanse affected area with soap and water - using a mild antibacterial soap such as Dial Topical: Santyl - apply nickel thickness amount to wound bed Secondary Dressing: ABD Secure With: Kerlex Roll gauze 4", Silk Tape 2" Wound Treatment: Wound: Sacrum Dressing Frequency: Change dressing once a day Wound Cleansing: Cleanse affected area with soap and water - using a mild antibacterial soap such as Dial Cydney-Wound Care: Skin Prep Primary Dressing: Collagen Secondary Dressing: ABD Secure With: Medfix tape 2" Recommend using an osotmy bag over fistula sites. ABD pads applied today in the clinic documented in this encounter [facility] 11-22-2024 Miscellaneous Notes Encounter addended by: Paulette Schofield RN on: 11/23/2024 4:09 PM Actions taken: LDA properties accepted documented in this encounter [facility] 11-22-2024 Note Encounter addended b y: Paulette Schofield RN on: 11/23/2024 4:09 PM Actions taken: LDA properties accepted [facility] 11-09-2024 Nurse Note Patient leaving via EMS to [facility] on cot, Tt Sarah @ [facility] regarding report. Advised corn picker time is 4:30. She was updated on patient care at [facility]. She has cared for Ms. Emanuel previously so is well versed in her care. Updates given and Sarah had no further questions. Removed IV's, dressing changes done and patient is ready for transport. documented in this encounter [facility] 11-09-2024 Miscellaneous Notes Problem: Chronic Conditions and Co-morbidities Goal: Patient's chronic conditions and co-morbidity symptoms are monitored and maintained or improved Outcome: Not Progressing Problem: Problem Interventions Goal: Assess Nutritional Intake Outcome: Adequate for Discharge Problem: Pain - Adult Goal: Verbalizes/displays adequate comfort level or baseline comfort level Outcome: Adequate for Discharge Problem: Safety - Adult Goal: Free from fall injury Outcome: Adequate for Discharge Problem: Discharge Planning Goal: Discharge to home or other facility with appropriate resources Outcome: Adequate for Discharge Problem: Knowledge Deficit Goal: Patient/family/caregiver demonstrates understanding of disease process, treatment plan, medications, and discharge instructions Outcome: Adequate for Discharge Problem: Potential for Falls Goal: I will remain free of falls Outcome: Adequate for Discharge Problem: Discharge Barriers Goal: My discharge needs are met Outcome: Adequate for Discharge Confirmed pickup time of 4:30pm on 11/09/24 by Alma Johns at phone number [phone]. Location of facility drop off is [facility]. Facility notified via [facility] notified on secure chat. Pt to be discharged (returned) to [facility] today. Mykel completed. Tcc updated facility this am that pt would be returning today. [facility] tasked [id number] to schedule ambulance transport at 4:30 p.m. Await verification of transport and will make bedside RN, community case manager, pt and facility aware of time. [facility] will also ask family life counselor to send discharge documents to facility. Updated notes sent to [facility] via [facility] per [facility] request. Await review and response regarding ability to accept. [facility] notified. Problem: Problem Interventions Goal: Assess Nutritional Intake Outcome: Progressing Problem: Pain - Adult Goal: Verbalizes/displays adequate comfort level or baseline comfort level Outcome: Progressing Problem: Safety - Adult Goal: Free from fall injury Outcome: Progressing Problem: Problem Interventions Goal: Assess Nutritional Intake Outcome: Progressing Problem: Pain - Adult Goal: Verbalizes/displays adequate comfort level or baseline comfort level Outcome: Progressing Problem: Safety - Adult Goal: Free from fall injury Outcome: Progressing Problem: Discharge Planning Goal: Discharge to home or other facility with appropriate resources Outcome: Progressing Problem: Chronic Conditions and Co-morbidities Goal: Patient's chronic conditions and co-morbidity symptoms are monitored and maintained or improved Outcome: Progressing TCC PROGRESS NOTE: PT recommending SNF placement. Per Dr. Ross, pt does not want to start TPN at this time and just wants to return to [facility]. Dr. Ross states he anticipates return to facility tomorrow. Pt is a bedhold and does not need insurance authorization to return. Problem: Problem Interventions Goal: Assess Nutritional Intake Outcome: Progressing Problem: Pain - Adult Goal: Verbalizes/displays adequate comfort level or baseline comfort level Outcome: Progressing Problem: Safety - Adult Goal: Free from fall injury Outcome: Progressing SW coverage for today. DESIGN CHIEF reviewed via Secure Chat patient and dc plan with WESTLEY Seay. Chart reviewed to anticipate DCP and needs. Clarification requested by treatment team regarding plan for TPN/PICC/antibiotics. Per General Surgery Dr Salazar via securechat, TPN is recommendation, awaiting primary plan. Per ID Dr Quintanilla via securechat, anticipate PO antibiotics. Per primary Dr Castelan via securechat, will review case and meet with patient, awaiting response. Consider LTC referral. SW consulted to follow via securechat. CM will continue to follow. Addendum: Dr Castelan discussed TPN with patient, who states she would like to think about how she would like to proceed. .Palliative Care Interdisciplinary Team Note: Diagnosis: Principal Problem: PICC line infection, initial encounter Active Problems: Severe malnutrition (CMS/HCC) ([facility]) Chief Complaint: Yoko Emanuel is a 69 y.o. female with chief complaint of: bacteremia wounds Reason Palliative Following:Goals of Care Plan:Follow Clinical Course Code Status: DNR-CC Medications: Gabapentin (Neurontin) and Oxycodone Nursing: Jail Care and Skin Integrity Social Work: No Unmet Needs Spiritual Care: Patient/Family Declined Pharmacy: No Unmet Needs Psychology/Psychiatry: No Unmet Needs Problem: Problem Interventions Goal: Assess Nutritional Intake Outcome: Progressing Problem: Pain - Adult Goal: Verbalizes/displays adequate comfort level or baseline comfort level Outcome: Progressing Problem: Safety - Adult Goal: Free from fall injury Outcome: Progressing Problem: Discharge Planning Goal: Discharge to home or other facility with appropriate resources Outcome: Progressing Problem: Problem Interventions Goal: Assess Nutritional Intake Outcome: Progressing Problem: Pain - Adult Goal: Verbalizes/displays adequate comfort level or baseline comfort level Outcome: Progressing Problem: Safety - Adult Goal: Free from fall injury Outcome: Progressing Care Management Progress Note 11/06/24 0900 Rapid Rounds Attendance Travel Registered Nurse Icu Planned Discharge Disposition SNF (return to [facility] for SNF) Today we still await Administering IV medications;M[employer] And Acquisitions Attorney recommendations (comment) Additional Comments: ID recommendations Awaiting response from Dr Quintanilla via [employer] for ID recommendations and plan regarding new PICC placement. CM will continue to follow. Addendum: Per Dr Quintanilla via [employer], can treat with PO antibiotic for discharge. Also inquired about General Surgery evaluating for TPN, Dr De La Cruz to place consult. CM will continue to follow. Problem: Problem Interventions Goal: Assess Nutritional Intake Outcome: Progressing Problem: Pain - Adult Goal: Verbalizes/displays adequate comfort level or baseline comfort level Outcome: Progressing Problem: Safety - Adult Goal: Free from fall injury Outcome: Progressing Problem: Discharge Planning Goal: Discharge to home or other facility with appropriate resources Outcome: Progressing Problem: Problem Interventions Goal: Assess Nutritional Intake Outcome: Progressing Problem: Pain - Adult Goal: Verbalizes/displays adequate comfort level or baseline comfort level Outcome: Progressing Problem: Safety - Adult Goal: Free from fall injury Outcome: Progressing Problem: Problem Interventions Goal: Assess Nutritional Intake Outcome: Progressing Problem: Pain - Adult Goal: Verbalizes/displays adequate comfort level or baseline comfort level Outcome: Progressing Problem: Safety - Adult Goal: Free from fall injury Outcome: Progressing Problem: Discharge Planning Goal: Discharge to home or other facility with appropriate resources Outcome: Progressing Problem: Chronic Conditions and Co-morbidities Goal: Patient's chronic conditions and co-morbidity symptoms are monitored and maintained or improved Outcome: Progressing Problem: Problem Interventions Goal: Assess Nutritional Intake Outcome: Progressing Problem: Pain - Adult Goal: Verbalizes/displays adequate comfort level or baseline comfort level Outcome: Progressing Problem: Safety - Adult Goal: Free from fall injury Outcome: Progressing Problem: Problem Interventions Goal: Assess Nutritional Intake Outcome: Progressing Problem: Pain - Adult Goal: Verbalizes/displays adequate comfort level or baseline comfort level Outcome: Progressing Problem: Safety - Adult Goal: Free from fall injury Outcome: Progressing Problem: Discharge Planning Goal: Discharge to home or other facility with appropriate resources Outcome: Progressing Problem: Chronic Conditions and Co-morbidities Goal: Patient's chronic conditions and co-morbidity symptoms are monitored and maintained or improved Outcome: Progressing Problem: Pain - Adult Goal: Verbalizes/displays adequate comfort level or baseline comfort level Outcome: Progressing Problem: Safety - Adult Goal: Free from fall injury Outcome: Progressing Problem: Chronic Conditions and Co-morbidities Goal: Patient's chronic conditions and co-morbidity symptoms are monitored and maintained or improved Outcome: Progressing SW coverage for today. SW consulted 10/31/24 from NICHELLE Ortiz, "Patient is a DNR CC with multiple wounds and issues". EMR reviewed. SAIDA met with patient bedside; introduced self, role and offered community resources/supports/referrals. Patient [facility]ER-AE [facility]IGHTS. Patient shared she has been staying at [facility] for about 5 months, normally resides in an apartment in [place], [place]. Patient plans to return to [facility] at discharge if they can manage her care needs. Patient said "they do a good job but I know that I require a lot of care". Patient said, "I just want to get better, the staff at [facility] had me talk to hospice but I still have a lot of things I want to do." Patient reported her youngest son Sean (31 years) is her emergency contact/next of kin. Shared he is a office machine inspector, works many hours (Over-time/double shifts) and has MS. Patient shared she has an older son who is in intermediate. No active need for SW follow up presently. Travel Registered Nurse Icu is following for placement needs. SW will follow along with treatment team and assist with discharge planning as needed. Patient may benefit from an LTAC assessment. .Palliative Care Interdisciplinary Team Note: Diagnosis: Principal Problem: PICC line infection, initial encounter Active Problems: Severe malnutrition (CMS/HCC) ([facility]) Chief Complaint: Yoko Emanuel is a 69 y.o. female with chief complaint of: bacteremia wounds Reason Palliative Following:Goals of Care Plan:Ongoing Goals of Care Discussions and Symptom Management Code Status: DNR-CC Medications: Gabapentin (Neurontin), Hydromorphone (Dilaudid), and Oxycodone Nursing: Jail Care and Skin Integrity Social Work: No Unmet Needs Spiritual Care: Patient/Family Declined Pharmacy: No Unmet Needs Psychology/Psychiatry: No Unmet Needs Care Management Progress Note 11/03/24 0830 Rapid Rounds Attendance Travel Registered Nurse Icu Planned Discharge Disposition SNF (return to [facility] for [facility]) Today we still await Administering IV medications;Mergers And Acquisitions Attorney recommendations (comment);Test results (comment) Additional Comments: ID recommendations, cultures PICC line infection (removed) and open abdominal fistula. DCP return to [facility] for SNF, facility is able to provide care per communication via [facility]. CM will continue to follow. Problem: Pain - Adult Goal: Verbalizes/displays adequate comfort level or baseline comfort level Outcome: Progressing Problem: Safety - Adult Goal: Free from fall injury Outcome: Progressing [facility] contacted [facility] to identify level of care for current bed hold, and if nursing home can be provided 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 CM will continue to follow. Addendum: Per Dr De La Cruz, ID requesting records from [facility] and [facility]-microbiology/cultures/ discharge summary. Spoke with both facilities and records requested to be faxed to . Records from [facility] received and placed on paper chart. Awaiting records from [facility]. Dr De La Cruz and Anthony aware. Per [facility] able to accept patient for nursing home needs. CM will continue to follow. Problem: Problem Interventions Goal: Assess Nutritional Intake Outcome: Progressing Problem: Knowledge Deficit Goal: Patient/family/caregiver demonstrates understanding of disease process, treatment plan, medications, and discharge instructions Outcome: Progressing Return Ref[facility] to [facility] per [facility] request. Await review and response regarding ability to accept. TCC notified. TCC PROGRESS NOTE: 69 yo female was a transfer from [facility]. She is from [facility]. Tcc asked [facility] to place referral for return. Pt admitted for picc line infection. Pt has extensive medical hx including recent partial foot amputation for osteomyelitis. 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 Pt is now on iv zosyn and vancomycin with concern for abd abscesses and continued osteomyelitis. ID has been consulted along with wound care, palliative care and SW. Plan to remove picc line and culture and use peripheral iv for now. Plan for CT abd/pelvis with contrast and multiple labs including blood cultures. Anticipate therapy evals and return to snf when medically stable. Problem: Knowledge Deficit Goal: Patient/family/caregiver demonstrates understanding of disease process, treatment plan, medications, and discharge instructions 11/01/2024 0243 by Gissell Jean Baptiste RN Outcome: Progressing 11/01/2024 0134 by Gissell Jean Baptiste RN Outcome: Progressing Problem: Potential for Compromised Skin Integrity Goal: Skin Integrity is Maintained or Improved 11/01/2024 0243 by Gissell Jean Baptiste RN Outcome: Progressing 11/01/2024 0134 by Gissell Jean Baptiste RN Outcome: Progressing Problem: Potential for Compromised Skin Integrity Goal: Nutritional status is improving 11/01/2024 0243 by Gissell Jean Baptiste RN Outcome: Progressing Problem: Knowledge Deficit Goal: Patient/family/caregiver demonstrates understanding of disease process, treatment plan, medications, and discharge instructions Outcome: Progressing Problem: Potential for Compromised Skin Integrity Goal: Skin Integrity is Maintained or Improved Outcome: Progressing Goal: Nutritional status is improving Outcome: Progressing Problem: Urinary Incontinence Goal: Perineal skin integrity is maintained or improved Outcome: Progressing Problem: Knowledge Deficit Goal: Patient/family/caregiver demonstrates understanding of disease process, treatment plan, medications, and discharge instructions Outcome: Progressing Problem: Potential for Compromised Skin Integrity Goal: Skin Integrity is Maintained or Improved Outcome: Progressing Goal: Nutritional status is improving Outcome: Progressing Problem: Urinary Incontinence Goal: Perineal skin integrity is maintained or improved Outcome: Progressing documented in this encounter [facility] 11-09-2024 Note Hospitalist Discharg e Summary Yoko Emanuel : 1955 Admit date: 10/31/2024 Discharge date: 11/09/2024 Admitting Physician: Shey Trujillo MD Primary Care Physician: No primary care provider on file. Visit Status: stable for DC to SNF Code Status: DNR-CC BRIEF HOSPITAL COURSE: Yoko is a 69 y.o. female sent from [facility] to [facility] for concerning findings on CT abdominal scan. Patient initially was sent to nursing home facility from [facility] for a partial amputation of her right foot. She had osteomyelitis. Patient was discharged on Zosyn and had a right PICC line placed. While in nursing home facility she completed her course of Zosyn for foot wound. That she then contracted pneumonia or started on IV Rocephin which was completed. Patient did have a elevated white count and positive blood cultures so they sent her to the hospital. Patient was found to have 2 abdominal abscesses and possible osteomyelitis. Patient has a sacral wound, left lower quadrant fistula draining purulent drainage, two left heel wounds and healing right partial foot amputation. She was started on antibiotics and admitted. CT A/P showed no abscess, mild bowel wall thickening and inflammation in the splenic flecture and fistulous tract in the LLQ. She required blood tx 11/01 for hb 6.5. ID consulted for ABX mangement. ID recommended surgery evaluation for fistula. Surgery consulted but pt decline considering operative intervention as she wanted time to heal from foot wounds. There was consideration to TPN for nutritional support but risks outweigh benefits especially in the setting of current CLABSI kleb bacteremia from right PICC (removed this admission) and ongoing foot infection. Very high risk for recurrent infection and unlikely to significantly alter pts clinical trajectory. Plan to optimize enteral nutrition. She was followed by palliative care and plans to continue at SNF. Bacteremia treated by infectious disease and will complete total 2 wk course to finish PO with augmentin. She will follow up with surgery OP for consideration of treatment of abd fistula. Follow up with pal care for ongoing GOC. She is hospice appropriate but currently not ready for this transition. Acute, acute on chronic, unstable/uncontrolled chronic problems/diagnoses: Severely malnourished K pneumo bacteremia from PICC CLSBI Infected PICC line - removed Possible sacral osteomyelitis Abdominal fistula Partial right foot amputation Sacral pressure injury Right heel pressure injury Left heel pressure injury Left Achilles pressure injury Acute anemia Stable chronic problems affecting care, new non-acute diagnoses: Hyperlipidemia Neuropathy Diabetes mellitus type 2 with hypoglycemia Medical History[1] Procedures: as above Hospital Course: See discharge diagnoses list above and medication adjustments below in med rec.The patient is discharged in improved and stable condition. Consults: IP CONSULT TO INFECTIOUS DISEASES IP CONSULT TO PALLIATIVE CARE IP CONSULT TO SOCIAL WORK INPATIENT CONSULT TO WOUND CARE PROVIDERS IP CONSULT TO WOUND PREVENTION IP CONSULT TO DIETITIAN IP CONSULT TO DIETITIAN IP CONSULT TO GENERAL SURGERY Discharge Instructions: Diet: Dietary Orders (From admission, onward) Start Ordered 11/07/24 1154 Adult diet Easy to Chew Diet effective now Question: Diet type Answer: Easy to Chew 11/07/24 1154 11/01/24 1547 Supplement:Lunch; Vanilla Ensure Plus High Protein Until discontinued Question Answer Comment Frequency Lunch Select supplement: Vanilla Ensure Plus High Protein 11/01/24 1546 11/01/24 1547 Supplement:Dinner; Vanilla Magic Cup Until discontinued Question Answer Comment Frequency Dinner Select supplement: Vanilla Magic Cup 11/01/24 1546 Activity: as tolerated Recommended Outpatient Tests: Disposition: Patient discharged in stable condition to Acute Rehab. Greater than 31 minutes spent discharging the patient and coming up with patient discharge plan. Vitals: BP 115/55 Pulse 70 Temp 36.4 ?C (97.5 ?F) (Temporal) Resp 18 Ht 4' 9.01" (1.448 m) Wt 73 lb (33.1 kg) SpO2 92% BMI 15.79 kg/m? Pulse Ox: SpO2 Av % Min: 92 % Max: 92 % Supplemental O2: O2 Flow Rate (L/min): 1 L/min Physical Exam Vitals reviewed. Constitutional: General: She is not in acute distress.Pleasant and conversational. [facility] Comments: Chronicially ill appearing, thin, pleasant, non-labored breathing Cardiovascular: Rate and Rhythm: Normal rate and regular rhythm. Pulmonary: Effort: Pulmonary effort is normal. Breath sounds: Normal breath sounds. Abdominal: General: Bowel sounds are normal. Palpations: Abdomen is soft. Tenderness: There is no abdominal tenderness. Musculoskeletal: Comments: Toe amputations noted, fistula site ntoed Skin: Comments: Heel wound and toe amputations noted Neurological: Genera (more content not included)... [facility] 11-09-2024 Hospital course Narrative Images from the original note were not included. Hospitalist Discharge Summary Yoko Emanuel : 1955 Admit date: 10/31/2024 Discharge date: 11/09/2024 Admitting Physician: Shey Trujillo MD Primary Care Physician: No primary care provider on file. Visit Status: stable for DC to SNF Code Status: DNR-CC BRIEF HOSPITAL COURSE: Yoko is a 69 y.o. female sent from [facility] to [facility] for concerning findings on CT abdominal scan. Patient initially was sent to nursing home facility from [facility] for a partial amputation of her right foot. She had osteomyelitis. Patient was discharged on Zosyn and had a right PICC line placed. While in nursing home facility she completed her course of Zosyn for foot wound. That she then contracted pneumonia or started on IV Rocephin which was completed. Patient did have a elevated white count and positive blood cultures so they sent her to the hospital. Patient was found to have 2 abdominal abscesses and possible osteomyelitis. Patient has a sacral wound, left lower quadrant fistula draining purulent drainage, two left heel wounds and healing right partial foot amputation. She was started on antibiotics and admitted. CT A/P showed no abscess, mild bowel wall thickening and inflammation in the splenic flecture and fistulous tract in the LLQ. She required blood tx 11/01 for hb 6.5. ID consulted for ABX mangement. ID recommended surgery evaluation for fistula. Surgery consulted but pt decline considering operative intervention as she wanted time to heal from foot wounds. There was consideration to TPN for nutritional support but risks outweigh benefits especially in the setting of current CLABSI kleb bacteremia from right PICC (removed this admission) and ongoing foot infection. Very high risk for recurrent infection and unlikely to significantly alter pts clinical trajectory. Plan to optimize enteral nutrition. She was followed by palliative care and plans to continue at SNF. Bacteremia treated by infectious disease and will complete total 2 wk course to finish PO with augmentin. She will follow up with surgery OP for consideration of treatment of abd fistula. Follow up with pal care for ongoing GOC. She is hospice appropriate but currently not ready for this transition. Acute, acute on chronic, unstable/uncontrolled chronic problems/diagnoses: Severely malnourished K pneumo bacteremia from PICC CLSBI Infected PICC line - removed Possible sacral osteomyelitis Abdominal fistula Partial right foot amputation Sacral pressure injury Right heel pressure injury Left heel pressure injury Left Achilles pressure injury Acute anemia Stable chronic problems affecting care, new non-acute diagnoses: Hyperlipidemia Neuropathy Diabetes mellitus type 2 with hypoglycemia Medical History[1] Procedures: as above Hospital Course: See discharge diagnoses list above and medication adjustments below in med rec.The patient is discharged in improved and stable condition. Consults: IP CONSULT TO INFECTIOUS DISEASES IP CONSULT TO PALLIATIVE CARE IP CONSULT TO SOCIAL WORK INPATIENT CONSULT TO WOUND CARE PROVIDERS IP CONSULT TO WOUND PREVENTION IP CONSULT TO DIETITIAN IP CONSULT TO DIETITIAN IP CONSULT TO GENERAL SURGERY Discharge Instructions: Diet: Dietary Orders (From admission, onward) Start Ordered 11/07/24 1154 Adult diet Easy to Chew Diet effective now Question: Diet type Answer: Easy to Chew 11/07/24 1154 11/01/24 1547 Supplement:Lunch; Vanilla Ensure Plus High Protein Until discontinued Question Answer Comment Frequency Lunch Select supplement: Vanilla Ensure Plus High Protein 11/01/24 1546 11/01/24 1547 Supplement:Dinner; Vanilla Magic Cup Until discontinued Question Answer Comment Frequency Dinner Select supplement: Vanilla Magic Cup 11/01/24 1546 Activity: as tolerated Recommended Outpatient Tests: Disposition: Patient discharged in stable condition to Acute Rehab. Greater than 31 minutes spent discharging the patient and coming up with patient discharge plan. Vitals: BP 115/55 Pulse 70 Temp 36.4 C (97.5 F) (Temporal) Resp 18 Ht 4' 9.01" (1.448 m) Wt 73 lb (33.1 kg) SpO2 92% BMI 15.79 kg/m Pulse Ox: SpO2 Av % Min: 92 % Max: 92 % Supplemental O2: O2 Flow Rate (L/min): 1 L/min Physical Exam Vitals reviewed. Constitutional: General: She is not in acute distress.Pleasant and conversational. [facility] Comments: Chronicially ill appearing, thin, pleasant, non-labored breathing Cardiovascular: Rate and Rhythm: Normal rate and regular rhythm. Pulmonary: Effort: Pulmonary effort is normal. Breath sounds: Normal breath sounds. Abdominal: General: Bowel sounds are normal. Palpations: Abdomen is soft. Tenderness: There is no abdominal tenderness. Musculoskeletal: Comments: Toe amputations noted, fistula site ntoed Skin: Comments: Heel wound and toe amputations noted Neurological: General: No focal deficit present. Mental Status: She is alert and oriented to person, place, and time. LABS: Recent Labs 11/07/24 0021 11/08/242 11/09/24612 NA 140 139 137 K 3.6 3.6 3.9 CL 107 107 103 CO2 26 26 31 BUN 3* 3* 3* CREATININE 0.50* 0.49* 0.45* GLUCOSE 83 87 82 CALCIUM 7.7* 7.7* 8.1* Recent Labs 11/07/24 0021 11/08/24 0212 11/09/24 0613 WBC 5.1 4.8 6.3 RBC 4.38 4.51 4.53 HGB 10.2* 10.6* 10.7* HCT 33.5* 35.1 35.4 MCV 76.5* 77.8 78.1 MCH 23.3* 23.5* 23.6* MCHC 30.4* 30.2* 30.2* RDW 20.2* 20.5* 20.8* PLT 411 403 378 MPV 10.3 10.0 9.9 Discharge Medications: Medication List START taking these medications amoxicillin-clavulanate 875-125 MG tablet Commonly known as: Augmentin Take 1 tablet by mouth every 12 hours for 10 doses. * oxyCODONE 10 MG immediate release tablet Commonly known as: Roxicodone Take 1 tablet (10 mg) by mouth Daily as needed (prior to dressing change only) for up to 5 days. * oxyCODONE 5 MG immediate release tablet Commonly known as: Roxicodone Take 1 tablet (5 mg) by mouth every 4 hours as needed for severe pain (7-10) or moderate pain (4-6) for up to 5 days. * This list has 2 medication(s) that are the same as other medications prescribed for you. Read the directions carefully, and ask your doctor or other care provider to review them with you. CHANGE how you take these medications acetaminophen 325 MG tablet Commonly known as: Tylenol What changed: Another medication with the same name was removed. Continue taking this medication, and follow the directions you see here. gabapentin 300 MG capsule Commonly known as: Neurontin Take 1 capsule (300 mg) by mouth 3 times daily. What changed: medication strength how much to take when to take this guaiFENesin 400 MG tablet Commonly known as: Humibid 3 What changed: Another medication with the same name was removed. Continue taking this medication, and follow the directions you see here. CONTINUE taking these medications aluminum-magnesium hydroxide 200-200 MG/5ML suspension aspirin 81 MG EC tablet atorvastatin 80 MG tablet Commonly known as: Lipitor benzonatate 100 MG capsule Commonly known as: Tessalon bisacodyl 10 MG suppository Commonly known as: Dulcolax citalopram 10 MG tablet Commonly known as: CeleXA ferrous sulfate 325 (65 Fe) MG EC tablet FLEET ENEMA RE glucose 40 % gel oral gel Commonly known as: Glutose heparin 5000 UNIT/ML injection hydrOXYzine pamoate 25 MG capsule Commonly known as: Vistaril magnesium hydroxide 400 MG/5ML suspension Commonly known as: Milk of Magnesia mirtazapine 30 MG tablet Commonly known as: Remeron polyethylene glycol (PEG) 3350 17 g packet Commonly known as: Miralax sodium chloride 0.9 % bolus Zinc Sulfate 220 (50 Zn) MG tablet STOP taking these medications Clinimix in Dextrose (10/12) 5 % infusion insulin regular 100 UNIT/ML injection Commonly known as: HumuLIN R,NovoLIN R Where to Get Your Medications You can get these medications from any pharmacy Bring a paper prescription for each of these medications oxyCODONE 10 MG immediate release tablet oxyCODONE 5 MG immediate release tablet Information about where to get these medications is not yet available Ask your nurse or doctor about these medications amoxicillin-clavulanate 875-125 MG tablet gabapentin 300 MG capsule Recommended Follow-up: [facility] [address] [place] [id number] Complexity of Follow up: [] Moderate Complexity: follow up within 7-14 calendar days (49627) [x] Severe Complexity: follow up within 7 calendar days (09959) Follow up Testing, Pending results or Referrals at Transitional Care Visit: [x] yes [] no Instructions to MA: Please call patient on day after discharge (must document patient contacted within 2 business days of discharge). Follow up questions for MA: 1. Did you get medications filled and taking them as instructed from discharge? 2. Are you following your discharge instructions from your hospital stay? 3. Please confirm patient is scheduled for a follow up appointment within the above time frame. Signed: Frederic Castelan DO Division of Hospitalist Medicine [facility] 11/09/2024, 4:03 PM [1] History reviewed. No pertinent past medical history. documented in this encounter [facility] 11-08-2024 Note TCC PROGRESS NOTE: PT recommending SNF placement. Per Dr. Ross, pt does not want to start TPN at this time and just wants to return to [facility]. Dr. Ross states he anticipates return to facility tomorrow. Pt is a bedhold and does not need insurance authorization to return. [facility] 11-08-2024 Note PHYSICAL THERAPY [facility] Initial Evaluation Name/MRN: Yoko Emanuel ([id number]) Evaluation Date: 11/08/2024 Date of : 1955 Admission Date: 10/31/2024 10:23 AM Age: 69 y.o. [facility] Discharge Recommendation: Jail Facility Equipment Needed: No Assessment IMPRESSION: 69 y.o. pt admitted to [facility] for PICC infection,, abdominal abscess. They were Max A for rolling and performed supine therex. Limited d/t fatigue and weakness. She is from a SNF where she was receiving assist with everything. Would recommend SNF at discharge. Admitting Diagnosis: PICC infection, abdominal abscess Prognosis: fair Performance Deficits /Impairments: Increased Pain, Decreased Functional Mobility, Decreased Strength, Decreased Endurance, Decreased Balance, and Decreased ROM Decision Making: Medium Complexity Subjective Pt supine in bed. Agreeable to PT session. Cleared by nursing Pain: Pt denies any current pain. Past Medical History: Medical History[1] Past Surgical History: Surgical History[2] Admission Diagnosis: Patient Active Problem List Diagnosis Date Noted Severe malnutrition ([facility]) ([facility]) 11/01/2024 PICC line infection, initial encounter 10/31/2024 Medical Precautions: No active isolations Proper PPE donned/doffed in accordance with facility standards. Fall Risk: Scott Fall Risk Score: 80 (High Risk) Precautions/Restrictions: Other Position/Activity Restriction: envella bed Fall Precautions Family/Caregiver Present: none Overall Cognitive Status: WFL Overall Orientation Status: Oriented x4 Vision: Not Assessed Hearing: normal Social/Functional History Patient admitted from SNF. Assistive Equipment: has been mainly bed bound Prior Level of Function Prior Level of ADL Function: Required Assist Prior Level of Mobility: Required Assist; Device: None Prior Level of Transfers: Required Assist Objective Lower Extremity Assessment AROM: Impaired: R knee lacking 15 degrees, R ankle locked in neutral, R hip WFL. L knee lacking 10 degrees, L ankle and hip WFL PROM: WFL Strength: Exceptions: 3+/5 Efrain hips, 3-/5 efrain knees, and 3/5 Efrain ankles Sensation: WFL Balance: Not assessed this session Bed Mobility: Rolling to right: Max Assist Rolling to left: Max Assist Minimal rolling performed with joel pad. Pt able to assist with BUE Transfers Unable to assess Ambulation Did not assess this session. Exercises Straight Leg Raise: x10 BLE AROM Heelslides: x10 BLE AROM Knee Short Arc Quad: x10 BLE AROM Upper Extremity: shoulder flex x10 BUE. lateral raise circles x10 BUE forward and x10 backward. bicep curls x10 BUE all AROM Outcome Measures AM-PAC How much HELP from another person do you currently need Turning from your back to your side while in a flat bed without using bedrails?: A Lot Moving from lying on your back to sitting on the side of a flat bed without using bedrails?: A Lot Moving to and from a bed to a chair (including a wheelchair)?: Total Standing up from a chair using your arms (wheelchair or bedside chair)?: Total Walking in a hospital room?: Total Stair climbing assessed?: No AM-PAC Inpatient Mobility Raw Score (No Stairs) : 7 [facility] Score: Bed activity Plan Pt would benefit from skilled acute PT services to address Strengthening, Gait Training, Balance Training, Functional Mobility Training, Endurance Training, Safety Education and Training, Stair Training, Equipment Evaluation/Education, Neuromuscular Re-Education Training, and Patient/Caregiver Training. Frequency: 5x/week for 4 weeks Barriers: Impaired balance, Lower extremity weakness, Upper extremity weakness, Decreased endurance, and Limited safety awareness Safety/Education Safety Safety Devices in place: call light within reach, left in bed, patient at risk for falls, and nurse notified Restraints: No Education Education Given To: patient Education Provided: PT Role, PT Goals, Plan of Care, Home Exercise Program, Discharge Recommendations, and Benefits of Increasing Activity Education Method: Verbal Barriers to Learning: None Education Outcome: Verbalized Understanding Goals Patient Stated Goal: to get stronger slowly Encounter Problems Encounter Problems (Active) Balance Patient will maintain static sitting balance for 5 minutes with supervision in order to demonstrate improved postural control and prepare for out of bed mobility. Start: 11/08/24 Expected End: 12/06/24 Patient will maintain dynamic sitting balance for 2 minutes with CGA in order to demonstrate improved postural control and prepare for out of bed mobility. Start: 11/08/24 Expected End: 12/06/24 Exercise Patient will complete lower extremity exercises for 3 sets / 10 reps in order to improve strength and activity tolerance for mobility. Start: 11/08/24 Expected End: 12/06/24 Pain - Adult Transfers Patient will perform b (more content not included)... [facility] 11-08-2024 History of Presen t illness Narrative Images from the original note were not included. PHYSICAL THERAPY [facility] Initial Evaluation Name/MRN: Yoko Emanuel ([id number]) Evaluation Date: 11/08/2024 Date of : 1955 Admission Date: 10/31/2024 10:23 AM Age: 69 y.o. Room[facility]Bed: [facility] A Discharge Recommendation: Jail Facility Equipment Needed: No Assessment IMPRESSION: 69 y.o. pt admitted to [facility] for PICC infection,, abdominal abscess. They were Max A for rolling and performed supine therex. Limited d/t fatigue and weakness. She is from a SNF where she was receiving assist with everything. Would recommend SNF at discharge. Admitting Diagnosis: PICC infection, abdominal abscess Prognosis: fair Performance Deficits /Impairments: Increased Pain, Decreased Functional Mobility, Decreased Strength, Decreased Endurance, Decreased Balance, and Decreased ROM Decision Making: Medium Complexity Subjective Pt supine in bed. Agreeable to PT session. Cleared by nursing Pain: Pt denies any current pain. Past Medical History: Medical History[1] Past Surgical History: Surgical History[2] Admission Diagnosis: Patient Active Problem List Diagnosis Date Noted Severe malnutrition (CMS/HCC) (HCC) 11/01/2024 PICC line infection, initial encounter 10/31/2024 Medical Precautions: No active isolations Proper PPE donned/doffed in accordance with facility standards. Fall Risk: Scott Fall Risk Score: 80 (High Risk) Precautions/Restrictions: Other Position/Activity Restriction: envella bed Fall Precautions Family/Caregiver Present: none Overall Cognitive Status: WFL Overall Orientation Status: Oriented x4 Vision: Not Assessed Hearing: normal Social/Functional History Patient admitted from SNF. Assistive Equipment: has been mainly bed bound Prior Level of Function Prior Level of ADL Function: Required Assist Prior Level of Mobility: Required Assist; Device: None Prior Level of Transfers: Required Assist Objective Lower Extremity Assessment AROM: Impaired: R knee lacking 15 degrees, R ankle locked in neutral, R hip WFL. L knee lacking 10 degrees, L ankle and hip WFL PROM: WFL Strength: Exceptions: 3+/5 Efrain hips, 3-/5 efrain knees, and 3/5 Efrain ankles Sensation: WFL Balance: Not assessed this session Bed Mobility: Rolling to right: Max Assist Rolling to left: Max Assist Minimal rolling performed with joel pad. Pt able to assist with BUE Transfers Unable to assess Ambulation Did not assess this session. Exercises Straight Leg Raise: x10 BLE AROM Heelslides: x10 BLE AROM Knee Short Arc Quad: x10 BLE AROM Upper Extremity: shoulder flex x10 BUE. lateral raise circles x10 BUE forward and x10 backward. bicep curls x10 BUE all AROM Outcome Measures AM-PAC How much HELP from another person do you currently need Turning from your back to your side while in a flat bed without using bedrails?: A Lot Moving from lying on your back to sitting on the side of a flat bed without using bedrails?: A Lot Moving to and from a bed to a chair (including a wheelchair)?: Total Standing up from a chair using your arms (wheelchair or bedside chair)?: Total Walking in a hospital room?: Total Stair climbing assessed?: No AM-PAC Inpatient Mobility Raw Score (No Stairs) : 7 [facility] Score: Bed activity Plan Pt would benefit from skilled acute PT services to address Strengthening, Gait Training, Balance Training, Functional Mobility Training, Endurance Training, Safety Education and Training, Stair Training, Equipment Evaluation/Education, Neuromuscular Re-Education Training, and Patient/Caregiver Training. Frequency: 5x/week for 4 weeks Barriers: Impaired balance, Lower extremity weakness, Upper extremity weakness, Decreased endurance, and Limited safety awareness Safety/Education Safety Safety Devices in place: call light within reach, left in bed, patient at risk for falls, and nurse notified Restraints: No Education Education Given To: patient Education Provided: PT Role, PT Goals, Plan of Care, Home Exercise Program, Discharge Recommendations, and Benefits of Increasing Activity Education Method: Verbal Barriers to Learning: None Education Outcome: Verbalized Understanding Goals Patient Stated Goal: to get stronger slowly Encounter Problems Encounter Problems (Active) Balance Patient will maintain static sitting balance for 5 minutes with supervision in order to demonstrate improved postural control and prepare for out of bed mobility. Start: 11/08/24 Expected End: 12/06/24 Patient will maintain dynamic sitting balance for 2 minutes with CGA in order to demonstrate improved postural control and prepare for out of bed mobility. Start: 11/08/24 Expected End: 12/06/24 Exercise Patient will complete lower extremity exercises for 3 sets / 10 reps in order to improve strength and activity tolerance for mobility. Start: 11/08/24 Expected End: 12/06/24 Pain - Adult Transfers Patient will perform bed mobility with mod assist in order to improve independence and prepare for out of bed mobility. Start: 11/08/24 Expected End: 12/06/24 Therapy Time Individual Co-Treatment Co-Evaluation Time In 1130 Time Out 1157 Minutes 27 Timed Code Treatment Minutes: 22 Minutes (mod eval) Variance: 5 (blood sugar getting checked) Haily Joshi PT Patient's Physical Therapy Plan of Care supervision is transferred to a [facility] Therapy Services Physical Therapist. Goals and/or treatment plan was established in collaboration with patient/family/other representatives. [1] History reviewed. No pertinent past medical history. [2] History reviewed. No pertinent surgical history. Images from the original note were not included. Palliative Care Progress Note Chief Complaint: Yoko Emanuel is a 69 y.o. female with chief complaint of wound pain. Palliative Care will follow peripherally, please contact on-call provider for urgent needs Assessment/Plan Goals of care Yoko Emanuel retains capacity for medical decision-making -legal surrogate decision maker is sonSean ( ) -goals of care include: 1) obtain medical information prior to decision-making, expresses due to weakness she is doubtful she would survive surgery however is open to other treatments if needed. 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 - mgmt per primary team - 10/31/24: CT A/P report reviewed - surgery team consult note reviewed Wounds with osteomyelitis/bacteremia - wound team on board - ID following - per primary currently on IV abx - PICC line she had in RUE has been removed - repeat blood cultures 11/02/24: no growth for 5 days Wound pain/B feet pain - continue gabapentin to 300mg three times per day - continue oxycodone 5mg PO q4h prn, monitor needs--this has been helpful - continue oxycodone 10mg daily as needed 1 hour prior to dressing changes - 11/08/24 has tolerated dressing changes quite well, overall pain is greatly improved Anemia - hgb 11/08/24 10.6 Protein calorie malnutrition - 10/31/24: albumin low at 1.7 - her pain has limited her wanting to eat--since better controlled her appetite is improved - eating a quarter of meals - told me still deciding on TPN Risk for constipation - last BM 11/07/24 - denies constipation - due to prn opiates and immobility - has prn polyethylene glycol Debility - PT/OT when able - came from SNF prior to [facility] hospitalization Palliative Care Encounter -Code Status: DNR-CC - Ongoing counseling of patient and family regarding diagnoses of wound, Determining prognosis in serious illness of wounds - will continue treatment including oxycodone and gabapentin - assessed patient or surrogate's understanding of medical condition, addressed goals of care pertinent to the condition and communicated this to the medical team - placed on MYKEL and external dc order for contracted palliative care team to see her at SNF Discharge planning: Not ready for discharge due to ongoing medical work-up/critical illness Patient meets criteria for general inpatient hospice care: No Palliative Care IDT members involved: None Discussed the plan of care with the other interdisciplinary team (IDT) members of the Palliative Care and Hospice teams and Patient and Floor Nurse. Subjective: Subjective/Events Since last seen: very pleased with pain control especially with dressing changes, in good mood and spirits, rather concerned with decision of TPN, breathing easy, no nausea, vomiting, having BM Yoko Emanuel is a 69 y.o. female transferred to [facility] from [facility] for CT demonstrating abdominal fistula. This is her 3rd hospitalization in few months, had been at [facility] for partial R foot amputation, positive osteomyelitis with IV abx had completed abx at [facility] ([facility], [place]), developed PNA and treated for this, at facility with positive blood cultures and elevated WBC to [place] [facility]. CT A/P revealing abdominal fistula prompting transfer. Since at [facility], repeat CT A/P completed, pending ID and wound consults. Adamant she would not want surgical interventions prompting palliative care consult for goals of care Palliative Care Assessments: Goals of care: Continue Current Management Advanced Directives: DNR Functional Assessment: PPS 60% amb reduced; can't do normal housework/sig disease; occ assistance; normal or reduced intake; full LOC or confusion Prognosis: uncertain at this time Spiritual Assessment: No spiritual distress identified Bereavement and Grief: Grief Issues Not Identified PDMP/OARRS Reviewed: Yes-no reportable medications Social history: Marital status: Children: 2 adult child(alyson)--sons Living status: assisted Work history: retired status: No [employer] lillian: Unknown ROS: See palliative care ROS/ESAS below; All other systems were reviewed and are negative. [place] Symptom Assessment Score [place] Score Pain Score (if non-verbal, add .FLACC below) 4 Tiredness Score 0 Nausea Score 0 Depression Score 0 Anxiety Score 3 Drowsiness Score 0 Anorexia Score (0= eating well, 10= not eating) 6 Wellbeing Score (10= worst sense of well-being) 5 Constipation 0 Dyspnea Score (0= no shortness of breath) 0 Family Meeting: Participants: patient Family meeting was held to discuss:Symptom Management Objective: BP 114/50 (BP Location: Left arm, Patient Position: Lying) Pulse 69 Temp 36.3 C (97.4 F) (Temporal) Resp 18 Ht 4' 9.01" (1.448 m) Wt 73 lb (33.1 kg) SpO2 91% BMI 15.79 kg/m Physical Exam Vitals and nursing note reviewed. Constitutional: Appearance: She is ill-appearing. HENT: Head: Normocephalic and atraumatic. Mouth/Throat: Mouth: Mucous membranes are moist. Eyes: General: Right eye: No discharge. Left eye: No discharge. Pulmonary: Effort: Pulmonary effort is normal. Skin: General: Skin is warm and dry. Comments: Fragile, specialty mattress Neurological: General: No focal deficit present. Mental Status: She is oriented to person, place, and time. Psychiatric: Mood and Affect: Mood normal. Behavior: Behavior normal. Visual exam unchanged today Medication information: 24-hour PRN meds received: hydroxyzine 25mg times 3, oxycodone 5mg times 5 Results/Verification of Data Review Objective data reviewed (must include dates reviewed for labs, imaging reports and other specialty notes): (CBC, BMP) reviewed 11/08/24 As above Data in Support of Terminal Illness: Is patient hospice appropriate? N/A NIRMAL Broderick CNP [facility] - Infectious Diseases Attending Progress Note Subjective: No new complaints, afebrile, still with ECF output. Needs pain meds prior to dressing changes. Tolerated lunch today. Objective: Vitals: Patient Vitals for the past 24 hrs: BP Temp Temp src Pulse Resp SpO2 11/08/24 0734 114/50 36.3 C (97.4 F) Temporal 69 18 91 % 11/07/242010 121/58 36.4 C (97.5 F) Temporal 68 18 92 % Physical Exam Vitals reviewed. Constitutional: Appearance: She is ill-appearing (frail but unlabored, nontoxic). Pulmonary: Effort: Pulmonary effort is normal. Abdominal: General: There is no distension. Palpations: Abdomen is soft. Tenderness: There is no abdominal tenderness (RLQ dressing with feculent strikethrough, less erythemasurrounding). Musculoskeletal: General: Signs of injury (Clean dressing to R TMA stump) present. Neurological: General: No focal deficit present. Mental Status: She is alert and oriented to person, place, and time. Psychiatric: Mood and Affect: Mood normal. Thought Content: Thought content normal. Labs: Lab Results Component Value Date/Time NA 139 11/08/2024 0212 K 3.6 11/08/2024 0212 CL 107 11/08/2024 0212 CO2 26 11/08/2024 0212 BUN 3 (L) 11/08/2024211 CREATININE 0.49 (L) 11/08/2024211 GLUCOSE 87 11/08/2024211 CALCIUM 7.7 (L) 11/08/2024211 PROT 5.4 (L) 10/31/20241424 BILITOT 0.4 10/31/2024 142 ALKPHOS 285 (H) 10/31/2024 142 AST 52 (H) 10/31/2024 142 ALT 61 (H) 10/31/2024 142 Lab Results Component Value Date/Time WBC 4.8 11/08/2024211 HGB 10.6 (L) 11/08/2024211 HCT 35.1 11/08/2024211 PLT 403 11/08/2024211 LYMPHOPCT 8 (L) 11/08/2024211 MONOPCT 4 (L) 11/08/2024211 BASOPCT 1 11/08/2024211 NEUTROABS 3.1 11/07/2024 0021 Micro: reviewed Reviewed 11/02 BC: neg 10/31 cath tip: Kleb pneumoniae( R- Amp, S- all others) 10/31 BC: Kleb pneumoniae 10/31 ECF wound cx: enteric lilly Lines: PIV Radiography/Echo/Other: reviewed Antimicrobials, Start/End Dates: [place] to 11/14 planned Impression: 69 F with multiple medical comorbidities and infections, transferred from OSH for evaluation of ECF: K pneumo bacteremia from PICC CLSBI, already removed, and follow up BC negative. Already covered. Possible sacral osteomyelitis-imaging unremarkable ECF- awaiting Surgical evaluation, as expected enteric flroa growing Recent TMA for gangrene, and completed 6 weeks IV antibiotics already, open wound- Chronic pain syndrome Malnutrition Nontoxic, HD stable. Plan: OK to switch to po antibiotic and finish course as above. Local wound care. Hospitalist Progress Note 11/08/2024 Subjective: Admit Date: 10/31/2024 PCP: No primary care provider on file. Room#: [id number]/[id number] A BRIEF HOSPITAL COURSE: Yoko is a 69 y.o. female with past medical history below who presents with chief complaint listed above. Patient was sent from [facility] to [facility] for concerning findings on CT abdominal scan. Patient initially was sent to nursing home facility from [facility] for a partial amputation of her right foot. She had osteomyelitis. Patient was discharged on Zosyn and had a right PICC line placed. While in nursing home facility she completed her course of Zosyn for foot wound. That she then contracted pneumonia or started on IV Rocephin. That ended last week. Patient did have a elevated white count and positive blood cultures so they sent her to the hospital. Patient was found to have 2 abdominal abscesses and possible osteomyelitis. Patient currently has a sacral wound, left lower quadrant fistula draining purulent drainage, two left heel wounds and healing right partial foot amputation. She was started on antibiotics and admitted. CT A/P showed no abscess, mild bowel wall thickening and inflammation in the splenic flecture and fistulous tract in the LLQ. She required blood tx 11/01 for hb 6.5. ID consulted for ABX mangement. ID recommended surgery evaluation for fistula. Interval History: Pt not interested in surgical options regarding fistula. Would also like to defer any discussions regarding colonoscopy while she heals from the above. Discussed TPN extensively again today with pt. Pt still not interested in surgical options for her abd fistula. Reviewed case with TPN team here. Pt is very high risk for TPN complication most notably of infection and TPN unlikely to have significant impact in care. Risks outweigh benefits. Discussed DC to SNF with nutritional support. She is agreeable to this plan. Adult diet Easy to Chew 24HR INTAKE/OUTPUT: No intake or output data in the 24 hours ending 11/08/24 0755 Past Medical History: Medical History[1] LABS: CBC: Recent Labs 11/06/24 0205 11/07/24 0021 11/08/24 0212 WBC 4.8 5.1 4.8 RBC 4.22 4.38 4.51 HGB 9.8* 10.2* 10.6* HCT 32.4* 33.5* 35.1 MCV 76.8* 76.5* 77.8 RDW 20.1* 20.2* 20.5* PLT 378 411 403 BMP: Recent Labs 11/06/24 0205 11/07/24 0021 11/08/24 0212 NA 139 140 139 K 3.5 3.6 3.6 CL 108* 107 107 CO2 25 26 26 BUN <3* 3* 3* CREATININE 0.46* 0.50* 0.49* GLUCOSE 70* 83 87 CALCIUM 7.5* 7.7* 7.7* ANIONGAP 6 7 6 LIVER PROFILE: No results for input(s): "AST", "ALT", "BILITOT", "ALKPHOS", "PROT" in the last 72 hours. No lab exists for component: LABALBU PT/INR: No results for input(s): "PROTIME", "INR" in the last 72 hours. CARDIAC ENZYMES: No results for input(s): "TROPONINI" in the last 72 hours. Procalcitonin: No results found for: "PROCAL" COVID-19 PCR: No results for input(s): "COVID19" in the last 72 hours. Objective: Vitals: BP 114/50 (BP Location: Left arm, Patient Position: Lying) Pulse 69 Temp 36.3 C (97.4 F) (Temporal) Resp 18 Ht 4' 9.01" (1.448 m) Wt 73 lb (33.1 kg) SpO2 91% BMI 15.79 kg/m Pulse Ox: SpO2 Av.7 % Min: 91 % Max: 92 % Supplemental O2: O2 Flow Rate (L/min): 1 L/min Physical Exam Vitals reviewed. Constitutional: General: She is not in acute distress. Comments: Chronicially ill appearing, thin, pleasant, non-labored breathing Cardiovascular: Rate and Rhythm: Normal rate and regular rhythm. Pulmonary: Effort: Pulmonary effort is normal. Breath sounds: Normal breath sounds. Abdominal: General: Bowel sounds are normal. Palpations: Abdomen is soft. Tenderness: There is no abdominal tenderness. Musculoskeletal: Comments: Toe amputations noted, fistula site ntoed Skin: Comments: Heel wound and toe amputations noted Neurological: General: No focal deficit present. Mental Status: She is alert and oriented to person, place, and time. Medications: Scheduled PRN Scheduled Meds[2] PRN Meds[3] Continuous Continuous Meds[4] Assessment Data: NA (LOW: 2x CAT1 or independent historian MOD: 3x CAT1 or 1x CAT3 EXTENSIVE: 3x CAT1 and 1x CAT3) Acute, acute on chronic, unstable/uncontrolled chronic problems/diagnoses: Severely malnourished K pneumo bacteremia from PICC CLSBI Infected PICC line - removed Possible sacral osteomyelitis Abdominal fistula Partial right foot amputation Sacral pressure injury Right heel pressure injury Left heel pressure injury Left Achilles pressure injury Acute anemia Stable chronic problems affecting care, new non-acute diagnoses: Hyperlipidemia Neuropathy Diabetes mellitus type 2 Plan As a result of the above findings & factors, the following mgmt was pursued: - ID consult - managing ABX - continue zosyn. Can finish course PO. - risks outweigh benefits of TPN. Optimize enteral nutrition. Recommend continued follow up with pal care. - wound Cx ntoed - PICC removed - follow BP - pall care following peripherally - consult wound care - consult surgery for fistula evaluation- pt deferred limited surgical options. - am labs, replace lytes prn - PT/OT/CM/SW - delirium precautions: increase activity - DVT prophylaxis: enoxaparin and encourage ambulation Complexity: Acute illness with systemic symptoms (MOD). Risk: Low risk diagnostic testing or treatment (LOW). Advance Directive: DNR-CC Anticipated Discharge - Date - 11/09? - Location - Skilled Facility - Pending the following - n/a Total time spent (which include face to face and non face to face encounters) : 53 minutes Extended Emergency Contact Information Primary Emergency Contact: Sean Mccann Mobile Relation: Hunter CastelanDO Division of Hospitalist Medicine [facility] [1] History reviewed. No pertinent past medical history. [2] aspirin, 81 mg, Oral, Daily atorvastatin, 80 mg, Oral, Nightly citalopram, 10 mg, Oral, Daily collagenase, , Topical, Daily enoxaparin, 30 mg, SubCUTAneous, Daily ferrous sulfate, 325 mg, Oral, Daily with breakfast gabapentin, 300 mg, Oral, TID insulin lispro, 0-6 Units, SubCUTAneous, TID WC And insulin lispro, 0-6 Units, SubCUTAneous, Nightly mirtazapine, 30 mg, Oral, Nightly piperacillin-tazobactam, 4,500 mg, IntraVENous, q6h sodium chloride 0.9%, 5-40 mL, IntraVENous, q12h [3] PRN medications: dextrose, dextrose, glucagon (rDNA), glucose, hydrOXYzine HCl, naloxone, oxyCODONE, oxyCODONE, polyethylene glycol (PEG) 3350, prochlorperazine, sodium chloride, sodium chloride, sodium chloride 0.9% [4] Nutrition Assessment Type and Reason for Visit: Reassess Nutrition Recommendations/Plan: Per MNT protocol modify diet: easy to chew. Continue with Ensure Plus HP at lunch (8 oz provides 350 kcals, 20 gm protein) and magic cup at dinner (4 oz provides 290 kcals, 9 gm protein). If TPN considered and appropriate to place PICC line, recommend Initial TPN: 46 gm protein (184 kcals), 200 lipid kcals, 280 dextrose kcals. This provides a total of 664 kcals/day (20 kcals, 1.39 gm protein per kg of Admit wt: 33.1 kg). Monitor weight, labs, I/O, skin assessment, BM, and overall nutritional status. RD will follow up. Malnutrition Assessment: Malnutrition Status: Severe malnutrition (Identified by RD on 11/01/24) Context: Chronic Illness Nutrition Assessment: Per chart- 69 y.o. female with past medical history hyperlipidemia, neuropathy, DM2, partial right foot amputation. Patient presents with K pneumo bacteremia from PICC CLSBI, multiple wounds, and EC fistulas. Infected PICC line removed. ID and wound care are following. 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 She has been managing the EC fistula herself by changing wash clothes and diapers. Per general surgery, patient not interested in surgical options and this would be extremely limited regardless. Surgery recommends TPN- RD messaged who reported patient is undecided if wants TPN. Per nursing facility records- pt on oral diet and TPN. Palliative care is following- current code status is DNR:CC. ERICH spoke with patient this am. + Hard of hearing. Breakfast tray arrived- patient ordered scrambled eggs, chocolate milk, and applesauce. She reports that she has been trying to eat more. She is eating things like jello, pudding, applesauce, mac and cheese, chicken noodle soup. Difficulty chewing- chicken tenders were hard. Per diet office, patient ordered 2 meals per day for past few days. Patient states she is able to drink 1/2 Ensure daily and several bites of magic cup. Prefers Boost however, patient would like to continue with oral nutrition supplements. Patient requests chocolate milk at meals which RD notified diet office of this. Patient reports that her fistula drainage is usually consistency of what she consumes (ie drinks liquids- drainage is more like liquid). RD obtained a weight, but suspect this inaccurate due speciality bed and multiple items on bed: 43.9 kg (96.6#). She again states that she was 73# prior to this admission. Weight was 110-120# x 8-9 months ago per patient. Estimated Daily Nutrient Needs: Energy Requirements Based On: Kcal/kg Weight Used for Energy Requirements: Admission Weight for Energy Calculation (kg): 33.1 kg Total Energy Requirements (kcals/day): 8265-6644 kcals per day (32-38) Weight Used for Protein Requirements: Admission Weight in Kg Used for Protein Requirements: 33.1 kg Estimated Total Protein (g/day): 40-50 gm per day (1.2-1.5) Estimated Daily Total Fluid (ml/day): Per MD Nutrition Related Findings: Gerhard = 14, active bowel sounds, noted 2 EC fistuals, loose/watery stool from fistula on 11/06, no edema, I/O: +[phone], room service selective Wound Type: (LLQ abdomen fistula - MASD d/t fecal incontinence; Right foot NHSW (delayed closure); Right heel unstageable pressure injury (POA); Left calf venous ulcer (fat); Left heel stage 3 pressure injury (POA); Sacral unstageable pressure injury (POA)) BMP: Recent Labs 11/05/24 0257 11/06/24 0205 11/07/24 0021 NA 139 139 140 K 3.5 3.5 3.6 CL 109* 108* 107 CO2 23 25 26 BUN <3* <3* 3* CREATININE 0.47* 0.46* 0.50* GLUCOSE 97 70* 83 CALCIUM 7.4* 7.5* 7.7* MG 2.0 2.0 -- Medications: Scheduled Meds[1] PRN Meds[2] Current Nutrition Therapies: Adult diet Regular Current Oral Intake Average Meal Intake: 0%, 1-25%, 26-50%, 76-100% Average Supplements Intake: Unable to assess Anthropometric Measures: Height: 144.8 cm (4' 9.01") Current Body Weight: 43.9 kg (96 lb 12.5 oz) Weight Source: Bed Scale (suspect weight is inaccurate due to speciality bed and multiple items on bed) Admission Body Weight: 33.1 kg (73 lb) (stated on 10/31/24) Usual Body Weight: (Epic weight history is limited; per patient- 110-120# x 8-9 months ago) Hadley Body Weight (lbs) (Calculated): 94 lbs [place] Body Weight (Kg) (Calculated): 43 kg BMI (kg/m2) (Calculated): 20.9 Weight Adjustment For: No Adjustment BMI Categories: Underweight (BMI less than 22) age over 65 Nutrition Interventions: Nutrition Education/Counseling: No recommendation at this time Coordination of Nutrition Care: Continue to monitor while inpatient Goals: Previous Goal Met: No Progress toward Goal(s) Goals: PO intake 50% or greater, by next RD assessment Nutrition Monitoring and Evaluation: Behavioral-Environmental Outcomes: None Identified Food/Nutrient Intake Outcomes: Diet Advancement/Tolerance, Food and Nutrient Intake, Supplement Intake Physical Signs/Symptoms Outcomes: Biochemical Data, Chewing or Swallowing, GI Status, Fluid Status or Edema, Meal Time Behavior, Nutrition Focused Physical Findings, Skin, Weight Discharge Planning: Too soon to determine Lina Arteaga RD Contact: *[phone] [1] aspirin, 81 mg, Oral, Daily atorvastatin, 80 mg, Oral, Nightly citalopram, 10 mg, Oral, Daily enoxaparin, 30 mg, SubCUTAneous, Daily ferrous sulfate, 325 mg, Oral, Daily with breakfast gabapentin, 300 mg, Oral, TID insulin lispro, 0-6 Units, SubCUTAneous, TID WC And insulin lispro, 0-6 Units, SubCUTAneous, Nightly mirtazapine, 30 mg, Oral, Nightly piperacillin-tazobactam, 4,500 mg, IntraVENous, q6h sodium chloride 0.9%, 5-40 mL, IntraVENous, q12h stomahesive in petrolatum, , Topical, q8h [2] PRN medications: dextrose, dextrose, glucagon (rDNA), glucose, hydrOXYzine HCl, naloxone, oxyCODONE, oxyCODONE, polyethylene glycol (PEG) 3350, prochlorperazine, sodium chloride, sodium chloride, sodium chloride 0.9%, stomahesive in petrolatum Hospitalist Progress Note 11/07/2024 Subjective: Admit Date: 10/31/2024 PCP: No primary care provider on file. Room#: [id number]/[id number] A BRIEF HOSPITAL COURSE: Yoko is a 69 y.o. female with past medical history below who presents with chief complaint listed above. Patient was sent from [facility] to [facility] for concerning findings on CT abdominal scan. Patient initially was sent to nursing home facility from [facility] for a partial amputation of her right foot. She had osteomyelitis. Patient was discharged on Zosyn and had a right PICC line placed. While in nursing home facility she completed her course of Zosyn for foot wound. That she then contracted pneumonia or started on IV Rocephin. That ended last week. Patient did have a elevated white count and positive blood cultures so they sent her to the hospital. Patient was found to have 2 abdominal abscesses and possible osteomyelitis. Patient currently has a sacral wound, left lower quadrant fistula draining purulent drainage, two left heel wounds and healing right partial foot amputation. She was started on antibiotics and admitted. CT A/P showed no abscess, mild bowel wall thickening and inflammation in the splenic flecture and fistulous tract in the LLQ. She required blood tx 11/01 for hb 6.5. ID consulted for ABX mangement. ID recommended surgery evaluation for fistula. Interval History: Pt not interested in surgical options regarding fistula. Would also like to defer any discussions regarding colonoscopy while she heals from the above. Reviewed with multidisciplinary team. Consider TPN given nutritional def. Reviewed risks benefits and alternatives of TPN highlighting the risk for infection especially bld stream infection. She would like to think about this option. This was communicated to the care team. Adult diet Regular 24HR INTAKE/OUTPUT: No intake or output data in the 24 hours ending 11/07/24 1013 Past Medical History: Medical History[1] LABS: CBC: Recent Labs 11/05/247 11/06/24 0205 11/07/24 0021 WBC 5.2 4.8 5.1 RBC 4.09 4.22 4.38 HGB 9.5* 9.8* 10.2* HCT 31.4* 32.4* 33.5* MCV 76.8* 76.8* 76.5* RDW 19.8* 20.1* 20.2* PLT 383 378 411 BMP: Recent Labs 11/05/2425611/06/24 02011/07/24 0021 NA 139 139 140 K 3.5 3.5 3.6 CL 109* 108* 107 CO2 23 25 26 BUN <3* <3* 3* CREATININE 0.47* 0.46* 0.50* GLUCOSE 97 70* 83 CALCIUM 7.4* 7.5* 7.7* ANIONGAP 7 6 7 LIVER PROFILE: No results for input(s): "AST", "ALT", "BILITOT", "ALKPHOS", "PROT" in the last 72 hours. No lab exists for component: LABALBU PT/INR: No results for input(s): "PROTIME", "INR" in the last 72 hours. CARDIAC ENZYMES: No results for input(s): "TROPONINI" in the last 72 hours. Procalcitonin: No results found for: "PROCAL" COVID-19 PCR: No results for input(s): "COVID19" in the last 72 hours. Objective: Vitals: BP 113/55 (BP Location: Right arm, Patient Position: Lying) Pulse 66 Temp 37.3 C (99.1 F) (Temporal) Resp 20 Ht 4' 9.01" (1.448 m) Wt 73 lb (33.1 kg) SpO2 92% BMI 15.79 kg/m Pulse Ox: SpO2 Av.5 % Min: 92 % Max: 93 % Supplemental O2: O2 Flow Rate (L/min): 1 L/min Physical Exam Vitals reviewed. Constitutional: General: She is not in acute distress. Comments: Chronicially ill appearing, thin, pleasant, non-labored breathing Cardiovascular: Rate and Rhythm: Normal rate and regular rhythm. Pulmonary: Effort: Pulmonary effort is normal. Breath sounds: Normal breath sounds. Abdominal: General: Bowel sounds are normal. Palpations: Abdomen is soft. Tenderness: There is no abdominal tenderness. Musculoskeletal: Comments: Toe amputations noted, fistula site ntoed Skin: Comments: Heel wound and toe amputations noted Neurological: General: No focal deficit present. Mental Status: She is alert and oriented to person, place, and time. Medications: Scheduled PRN Scheduled Meds[2] PRN Meds[3] Continuous Continuous Meds[4] Assessment Data: NA (LOW: 2x CAT1 or independent historian MOD: 3x CAT1 or 1x CAT3 EXTENSIVE: 3x CAT1 and 1x CAT3) Acute, acute on chronic, unstable/uncontrolled chronic problems/diagnoses: Severely malnourished K pneumo bacteremia from PICC CLSBI Infected PICC line - removed Possible sacral osteomyelitis Abdominal fistula Partial right foot amputation Sacral pressure injury Right heel pressure injury Left heel pressure injury Left Achilles pressure injury Acute anemia Stable chronic problems affecting care, new non-acute diagnoses: Hyperlipidemia Neuropathy Diabetes mellitus type 2 Plan As a result of the above findings & factors, the following mgmt was pursued: - ID consult - managing ABX - continue zosyn. Can finish course PO. -pt considering TPN - wound Cx ntoed - PICC removed - follow BP - pall care following peripherally - consult wound care - consult surgery for fistula evaluation- pt deferred limited surgical options. Consider TPN. Pt deciding. - am labs, replace lytes prn - PT/OT/CM/SW - delirium precautions: increase activity - DVT prophylaxis: enoxaparin and encourage ambulation Complexity: Acute illness with systemic symptoms (MOD). Risk: Low risk diagnostic testing or treatment (LOW). Advance Directive: DNR-CC Anticipated Discharge - Date - TBD - Location - Skilled Facility - Pending the following - decision on TPN Total time spent (which include face to face and non face to face encounters) : 45 minutes Extended Emergency Contact Information Primary Emergency Contact: Sean Mccann Mobile Relation: Hunter Castelan DO Division of Hospitalist Medicine [employer] [facility] [1] History reviewed. No pertinent past medical history. [2] aspirin, 81 mg, Oral, Daily atorvastatin, 80 mg, Oral, Nightly citalopram, 10 mg, Oral, Daily enoxaparin, 30 mg, SubCUTAneous, Daily ferrous sulfate, 325 mg, Oral, Daily with breakfast gabapentin, 300 mg, Oral, TID insulin lispro, 0-6 Units, SubCUTAneous, TID WC And insulin lispro, 0-6 Units, SubCUTAneous, Nightly mirtazapine, 30 mg, Oral, Nightly piperacillin-tazobactam, 4,500 mg, IntraVENous, q6h sodium chloride 0.9%, 5-40 mL, IntraVENous, q12h stomahesive in petrolatum, , Topical, q8h [3] PRN medications: dextrose, dextrose, glucagon (rDNA), glucose, naloxone, oxyCODONE, oxyCODONE, polyethylene glycol (PEG) 3350, prochlorperazine, sodium chloride, sodium chloride, sodium chloride 0.9%, stomahesive in petrolatum [4] [facility] - Infectious Diseases Attending Progress Note Subjective: Arousable, same foot pain complaints, but pain meds help with phantom pain syndrome. Surgery consult evaluated patient earlier today. No other complaints. Afebrile. Objective: Vitals: Patient Vitals for the past 24 hrs: BP Temp Temp src Pulse Resp SpO2 11/06/24 0808 121/55 36.6 C (97.9 F) Temporal 68 16 92 % 11/06/24 0616 -- -- -- -- -- 94 % 11/05/24 2135 -- -- -- -- -- 93 % 11/05/24 2058 112/62 36.3 C (97.3 F) Temporal 74 16 90 % 11/05/24 1536 -- -- -- 67 -- 95 % Physical Exam Vitals reviewed. Constitutional: Appearance: She is ill-appearing (frail, malnourished, thin but nontoxic). Eyes: Extraocular Movements: Extraocular movements intact. Cardiovascular: Rate and Rhythm: Normal rate and regular rhythm. Heart sounds: Normal heart sounds. No murmur heard. Pulmonary: Effort: Pulmonary effort is normal. No respiratory distress. Breath sounds: Normal breath sounds. Abdominal: General: There is no distension. Palpations: Abdomen is soft. Tenderness: There is no abdominal tenderness (Dressing over LLQ ECF with unchanged erythema). Musculoskeletal: General: Signs of injury (R clean dressing to TMA site, sacral ulcer not examined- refer to photos) present. Skin: Coloration: Skin is not jaundiced. Findings: No erythema or rash. Neurological: General: No focal deficit present. Mental Status: She is alert. Psychiatric: Thought Content: Thought content normal. Labs: Lab Results Component Value Date/Time NA 139 11/06/2024204 K 3.5 11/06/2024204 CL 108 (H) 11/06/2024204 CO2 25 11/06/2024204 BUN <3 (L) 11/06/2024204 CREATININE 0.46 (L) 11/06/2024204 GLUCOSE 70 (L) 11/06/2024204 CALCIUM 7.5 (L) 11/06/2024204 PROT 5.4 (L) 10/31/2024 142 BILITOT 0.4 10/31/2024 142 ALKPHOS 285 (H) 10/31/2024 142 AST 52 (H) 10/31/2024 1425 ALT 61 (H) 10/31/2024 142 Lab Results Component Value Date/Time WBC 4.8 11/06/2024204 HGB 9.8 (L) 11/06/2024204 HCT 32.4 (L) 11/06/2024204 PLT 378 11/06/2024204 LYMPHOPCT 19 11/06/2024204 MONOPCT 7 11/06/2024204 BASOPCT 5 (H) 11/06/2024 020 NEUTROABS 3.5 11/05/2024 0257 Micro: Reviewed 11/02 BC: neg 10/31 cath tip: Kleb pneumoniae( R- Amp, S- all others) 10/31 BC: Kleb pneumoniae 10/31 ECF wound cx: enteric lilly Lines: PIV Radiography/Echo/Other: reviewed Antimicrobials, Start/End Dates: Piptazo Impression: 69 F with multiple medical comorbidities and infections, transferred from OSH for evaluation of ECF: K pneumo bacteremia from PICC CLSBI, already removed, and follow up BC negative. Already covered. Possible sacral osteomyelitis-imaging unremarkable ECF- awaiting Surgical evaluation, as expected enteric flroa growing Recent TMA for gangrene, and completed 6 weeks IV antibiotics already, open wound- Chronic pain syndrome Malnutrition Nontoxic, HD stable. Plan: Per Surgery , TPN recommended, and will need PICC placed again. Colonoscopy is also considered. As for Bacteremia, clinically improving and can finish course with po antibiotic, Keflex 1gm q8 to 11/14. But if completely npo, then will continue on IV Cefazolin instead. Hospitalist Progress Note 11/06/2024 Subjective: Admit Date: 10/31/2024 PCP: No primary care provider on file. Room#: [id number]/[id number] A BRIEF HOSPITAL COURSE: Yoko is a 69 y.o. female with past medical history below who presents with chief complaint listed above. Patient was sent from [facility] to [facility] for concerning findings on CT abdominal scan. Patient initially was sent to nursing home facility from [facility] for a partial amputation of her right foot. She had osteomyelitis. Patient was discharged on Zosyn and had a right PICC line placed. While in nursing home facility she completed her course of Zosyn for foot wound. That she then contracted pneumonia or started on IV Rocephin. That ended last week. Patient did have a elevated white count and positive blood cultures so they sent her to the hospital. Patient was found to have 2 abdominal abscesses and possible osteomyelitis. Patient currently has a sacral wound, left lower quadrant fistula draining purulent drainage, two left heel wounds and healing right partial foot amputation. She was started on antibiotics and admitted. CT A/P showed no abscess, mild bowel wall thickening and inflammation in the splenic flecture and fistulous tract in the LLQ. She required blood tx 11/01 for hb 6.5. ID consulted for ABX mangement. ID recommended surgery evaluation for fistula. Interval History: 11/06: No acute events overnight. No CP or SOB. D/W ID, will consult surgery for evaluation of chronic fistula and if TPN needed for healing. 11/05: No acute events overnight. No CP or SOB. Pain contorlled. All questions answered. 6/7: D/W cx results and answered questions. She feel well and denies CP or SOB. 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 ABX per ID. She feels ok today. No complaints. 11/02: She c/o fatigue. She denies CP or SOB. No acute events overnight. D/W nurse and TCC. D/W ID - will need more culture information from outside hospitals - D/W floor staff and attempting to obtain. 11/01: She c/o granulized pain and fatigue. No CP or SOB. No overnight issues. Case and plan discussed with patient and bedside nurse. All questions answered. Adult diet Regular 24HR INTAKE/OUTPUT: No intake or output data in the 24 hours ending 11/06/24 1154 Past Medical History: Medical History[1] LABS: CBC: Recent Labs 11/04/2431711/05/2425611/06/24 0205 WBC 5.3 5.2 4.8 RBC 3.80 4.09 4.22 HGB 8.9* 9.5* 9.8* HCT 28.9* 31.4* 32.4* MCV 76.1* 76.8* 76.8* RDW 19.6* 19.8* 20.1* PLT 342 383 378 BMP: Recent Labs 11/04/2431711/05/2425611/06/24 0205 NA 139 139 139 K 3.5 3.5 3.5 CL 112* 109* 108* CO2 22* 23 25 BUN 3* <3* <3* CREATININE 0.50* 0.47* 0.46* GLUCOSE 71* 97 70* CALCIUM 7.3* 7.4* 7.5* ANIONGAP 5 7 6 LIVER PROFILE: No results for input(s): "AST", "ALT", "BILITOT", "ALKPHOS", "PROT" in the last 72 hours. No lab exists for component: LABALBU PT/INR: No results for input(s): "PROTIME", "INR" in the last 72 hours. CARDIAC ENZYMES: No results for input(s): "TROPONINI" in the last 72 hours. Procalcitonin: No results found for: "PROCAL" COVID-19 PCR: No results for input(s): "COVID19" in the last 72 hours. Objective: Vitals: BP 121/55 (BP Location: Right arm, Patient Position: Lying) Pulse 68 Temp 36.6 C (97.9 F) (Temporal) Resp 16 Ht 4' 9.01" (1.448 m) Wt 73 lb (33.1 kg) SpO2 92% BMI 15.79 kg/m Pulse Ox: SpO2 Av.8 % Min: 90 % Max: 95 % Supplemental O2: O2 Flow Rate (L/min): 1 L/min Physical Exam Vitals reviewed. Constitutional: General: She is not in acute distress. Comments: Chronicially ill appearing, thin, pleasant, non-labored breathing Cardiovascular: Rate and Rhythm: Normal rate and regular rhythm. Pulmonary: Effort: Pulmonary effort is normal. Breath sounds: Normal breath sounds. Abdominal: General: Bowel sounds are normal. Palpations: Abdomen is soft. Tenderness: There is no abdominal tenderness. Musculoskeletal: Comments: Toe amputations noted, fistula site ntoed Skin: Comments: Heel wound and toe amputations noted Neurological: General: No focal deficit present. Mental Status: She is alert and oriented to person, place, and time. Medications: Scheduled PRN Scheduled Meds[2] PRN Meds[3] Continuous Continuous Meds[4] Assessment Data: NA (LOW: 2x CAT1 or independent historian MOD: 3x CAT1 or 1x CAT3 EXTENSIVE: 3x CAT1 and 1x CAT3) Acute, acute on chronic, unstable/uncontrolled chronic problems/diagnoses: Severely malnourished K pneumo bacteremia from PICC CLSBI Infected PICC line - removed Possible sacral osteomyelitis Abdominal fistula Partial right foot amputation Sacral pressure injury Right heel pressure injury Left heel pressure injury Left Achilles pressure injury Acute anemia Stable chronic problems affecting care, new non-acute diagnoses: Hyperlipidemia Neuropathy Diabetes mellitus type 2 Plan As a result of the above findings & factors, the following mgmt was pursued: - ID consult - managing ABX - vancomycin 6/ to 6 - zosyn 6/ - home medications - lópez cultures - wound Cx ntoed - obtain outside hospital culture records - PICC removed - IVF - follow lower BP - consult pall care - consult wound care - consult surgery for fistula evaluation and if TNP needed - am labs, replace lytes prn - PT/OT/CM/SW - delirium precautions: increase activity - DVT prophylaxis: enoxaparin and encourage ambulation Complexity: Acute illness with systemic symptoms (MOD). Risk: Low risk diagnostic testing or treatment (LOW). Advance Directive: DNR-CC Anticipated Discharge - Date - TBD - Location - Skilled Facility - Pending the following - clinical course, Cx results, M[employer] Acquis[employer] Attorney recommendations Total time spent (which include face to face and non face to face encounters) : 35 minutes Toxic drug monitoring/narrow therapeutic index drug monitoring : # Drug name : N/A # Route administered : N/A # Method of monitoring : N/A Extended Emergency Contact Information Primary Emergency Contact: Sean Mccann Mobile Relation: Son Steven De La Cruz MD Division of Hospitalist Medicine [facility] [1] History reviewed. No pertinent past medical history. [2] aspirin, 81 mg, Oral, Daily atorvastatin, 80 mg, Oral, Nightly citalopram, 10 mg, Oral, Daily enoxaparin, 30 mg, SubCUTAneous, Daily ferrous sulfate, 325 mg, Oral, Daily with breakfast gabapentin, 300 mg, Oral, TID insulin lispro, 0-6 Units, SubCUTAneous, TID WC And insulin lispro, 0-6 Units, SubCUTAneous, Nightly mirtazapine, 30 mg, Oral, Nightly piperacillin-tazobactam, 4,500 mg, IntraVENous, q6h sodium chloride 0.9%, 5-40 mL, IntraVENous, q12h stomahesive in petrolatum, , Topical, q8h [3] PRN medications: dextrose, dextrose, glucagon (rDNA), glucose, naloxone, [START ON 11/07/2024] oxyCODONE, oxyCODONE, polyethylene glycol (PEG) 3350, prochlorperazine, sodium chloride, sodium chloride, sodium chloride 0.9%, stomahesive in petrolatum [4] Images from the original note were not included. Palliative Care Progress Note Chief Complaint: Yoko Emanuel is a 69 y.o. female with chief complaint of wound pain. Palliative Care will follow peripherally, please contact on-call provider for urgent needs Assessment/Plan Goals of care Yoko Emanuel retains capacity for medical decision-making -legal surrogate decision maker is Sean naidu ( ) -goals of care include: 1) obtain medical information prior to decision-making, expresses due to weakness she is doubtful she would survive surgery however is open to other treatments if needed. 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 - mgmt per primary team - 10/31/24: CT A/P report reviewed Wounds with osteomyelitis/bacteremia - wound team on board, their initial consult from today appreciated with pictures - ID following - per primary currently on IV abx - PICC line she had in RUE has been removed - repeat blood cultures 11/02/24: no growth times 72 hours Wound pain/B feet pain - INCREASE gabapentin to 300mg three times per day - continue oxycodone 5mg PO q4h prn, monitor needs--this has been helpful - STOP IV hydromorphone 0.5mg daily PRN prior to dressing changes, given this morning already today - starting TOMORROW: oxycodone 10mg to be given 60 minutes prior to dressing change to ensure without need for IV hydromorphone, aware cannot go back to facility on IV pain medications Anemia - hgb 11/06/24 9.8 Protein calorie malnutrition - 10/31/24: albumin low at 1.7 - her pain has limited her wanting to eat--since better controlled her appetite is improved - eating about half meals - at some point had been on TPN, her appetite is improved Risk for constipation - last BM 11/05/24 - denies constipation - due to prn opiates and immobility - has prn polyethylene glycol Debility - PT/OT when able - came from SNF prior to [facility] hospitalization Palliative Care Encounter -Code Status: DNR-CC - Ongoing counseling of patient and family regarding diagnoses of wound, Determining prognosis in serious illness of wounds - will continue treatment including oxycodone and gabapentin - assessed patient or surrogate's understanding of medical condition, addressed goals of care pertinent to the condition and communicated this to the medical team - placed on MYKEL and external dc order for contracted palliative care team to see her at [facility] Discharge planning: Not ready for discharge due to ongoing medical work-up/critical illness Patient meets criteria for general inpatient hospice care: No Palliative Care IDT members involved: None Discussed the plan of care with the other interdisciplinary team (IDT) members of the Palliative Care and Hospice teams and Patient and Floor Nurse. Subjective: Subjective/Events Since last seen: repeat blood cultures clear thus far only day 3. Awake in bed in NAD, in good mood and spirits, very pleased with overall care. Pain controlled even with dressing changes, no CP, abdominal pain, breathing at times labored but currently easy, no nausea, vomiting, BM 11/05/24, eating about half of meals Yoko Emanuel is a 69 y.o. female transferred to [facility] from [facility] for CT demonstrating abdominal fistula. This is her 3rd hospitalization in few months, had been at [facility] for partial R foot amputation, positive osteomyelitis with IV abx had completed abx at [facility] ([facility], [place]), developed PNA and treated for this, at facility with positive blood cultures and elevated WBC to [place] [facility]. CT A/P revealing abdominal fistula prompting transfer. Since at [facility], repeat CT A/P completed, pending ID and wound consults. Adamant she would not want surgical interventions prompting palliative care consult for goals of care Palliative Care Assessments: Goals of care: Continue Current Management Advanced Directives: DNR Functional Assessment: PPS 60% amb reduced; can't do normal housework/sig disease; occ assistance; normal or reduced intake; full LOC or confusion Prognosis: uncertain at this time Spiritual Assessment: No spiritual distress identified Bereavement and Grief: Grief Issues Not Identified PDMP/OARRS Reviewed: Yes-no reportable medications Social history: Marital status: Children: 2 adult child(alyson)--sons Living status: assisted Work history: retired [place] status: No [employer] lillian: Unknown ROS: See palliative care ROS/ESAS below; All other systems were reviewed and are negative. [place] Symptom Assessment Score [place] Score Pain Score (if non-verbal, add .FLACC below) 3 Tiredness Score 0 Nausea Score 0 Depression Score 0 Anxiety Score 5 Drowsiness Score 0 Anorexia Score (0= eating well, 10= not eating) 5 Wellbeing Score (10= worst sense of well-being) 5 Constipation 0 Dyspnea Score (0= no shortness of breath) 0 Family Meeting: Participants: patient Family meeting was held to discuss:Symptom Management Objective: BP 112/62 Pulse 74 Temp 36.3 C (97.3 F) (Temporal) Resp 16 Ht 4' 9.01" (1.448 m) Wt 73 lb (33.1 kg) SpO2 94% BMI 15.79 kg/m Physical Exam Vitals and nursing note reviewed. Constitutional: Appearance: She is ill-appearing. HENT: Head: Normocephalic and atraumatic. Mouth/Throat: Mouth: Mucous membranes are moist. Eyes: General: Right eye: No discharge. Left eye: No discharge. Pulmonary: Effort: Pulmonary effort is normal. Skin: General: Skin is warm and dry. Comments: Fragile, specialty mattress Neurological: General: No focal deficit present. Mental Status: She is oriented to person, place, and time. Psychiatric: Mood and Affect: Mood normal. Behavior: Behavior normal. Medication information: 24-hour PRN meds received: oxycodone 5mg times 4, hydromorphone 0.5mg IV times 1 Results/Verification of Data Review Objective data reviewed (must include dates reviewed for labs, imaging reports and other specialty notes): (CBC, BMP) reviewed 11/06/24 As above Data in Support of Terminal Illness: Is patient hospice appropriate? N/A NIRMAL Broderick CNP Hospitalist Progress Note 11/05/2024 Subjective: Admit Date: 10/31/2024 PCP: No primary care provider on file. Room#: [id number] A BRIEF HOSPITAL COURSE: Yoko is a 69 y.o. female with past medical history below who presents with chief complaint listed above. Patient was sent from [facility] to [facility] for concerning findings on CT abdominal scan. Patient initially was sent to nursing home facility from [facility] for a partial amputation of her right foot. She had osteomyelitis. Patient was discharged on Zosyn and had a right PICC line placed. While in nursing home facility she completed her course of Zosyn for foot wound. That she then contracted pneumonia or started on IV Rocephin. That ended last week. Patient did have a elevated white count and positive blood cultures so they sent her to the hospital. Patient was found to have 2 abdominal abscesses and possible osteomyelitis. Patient currently has a sacral wound, left lower quadrant fistula draining purulent drainage, two left heel wounds and healing right partial foot amputation. She was started on antibiotics and admitted. CT A/P showed no abscess, mild bowel wall thickening and inflammation in the splenic flecture and fistulous tract in the LLQ. She required blood tx 11/01 for hb 6.5. ID consulted for ABX mangement. Interval History: 11/05: No acute events overnight. No CP or SOB. Pain contorlled. All questions answered. 11/04: D/W cx results and answered questions. She feel well and denies CP or SOB. 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 ABX per ID. She feels ok today. No complaints. 11/02: She c/o fatigue. She denies CP or SOB. No acute events overnight. D/W nurse and TCC. D/W ID - will need more culture information from outside hospitals - D/W floor staff and attempting to obtain. 11/01: She c/o granulized pain and fatigue. No CP or SOB. No overnight issues. Case and plan discussed with patient and bedside nurse. All questions answered. Adult diet Regular 24HR INTAKE/OUTPUT: No intake or output data in the 24 hours ending 11/05/24 1323 Past Medical History: Medical History[1] LABS: CBC: Recent Labs 11/04/2431711/05/24 0257 WBC 5.3 5.2 RBC 3.80 4.09 HGB 8.9* 9.5* HCT 28.9* 31.4* MCV 76.1* 76.8* RDW 19.6* 19.8* PLT 342 383 BMP: Recent Labs 11/04/2431711/05/24 0257 NA 139 139 K 3.5 3.5 CL 112* 109* CO2 22* 23 BUN 3* <3* CREATININE 0.50* 0.47* GLUCOSE 71* 97 CALCIUM 7.3* 7.4* ANIONGAP 5 7 LIVER PROFILE: No results for input(s): "AST", "ALT", "BILITOT", "ALKPHOS", "PROT" in the last 72 hours. No lab exists for component: LABALBU PT/INR: No results for input(s): "PROTIME", "INR" in the last 72 hours. CARDIAC ENZYMES: No results for input(s): "TROPONINI" in the last 72 hours. Procalcitonin: No results found for: "PROCAL" COVID-19 PCR: No results for input(s): "COVID19" in the last 72 hours. Objective: Vitals: BP 114/57 (BP Location: Right arm, Patient Position: Lying) Pulse 75 Temp 36.4 C (97.6 F) (Temporal) Resp 16 Ht 4' 9.01" (1.448 m) Wt 73 lb (33.1 kg) SpO2 92% BMI 15.79 kg/m Pulse Ox: SpO2 Av.8 % Min: 87 % Max: 92 % Supplemental O2: O2 Flow Rate (L/min): 1 L/min Physical Exam Vitals reviewed. Constitutional: General: She is not in acute distress. Comments: Chronicially ill appearing, thin, pleasant, non-labored breathing Cardiovascular: Rate and Rhythm: Normal rate and regular rhythm. Pulmonary: Effort: Pulmonary effort is normal. Breath sounds: Normal breath sounds. Abdominal: General: Bowel sounds are normal. Palpations: Abdomen is soft. Tenderness: There is no abdominal tenderness. Musculoskeletal: Comments: Toe amputations noted, fistula site ntoed Skin: Comments: Heel wound and toe amputations noted Neurological: General: No focal deficit present. Mental Status: She is alert and oriented to person, place, and time. 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 Sacral pressure injury Right heel pressure injury Left heel pressure injury Left Achilles pressure injury Acute anemia Stable chronic problems affecting care, new non-acute diagnoses: Hyperlipidemia Neuropathy Diabetes mellitus type 2 Plan As a result of the above findings & factors, the following mgmt was pursued: - ID consult - managing ABX - vancomycin 10/31 to 11/03 - zosyn / - home medications - lópez cultures - wound Cx ntoed - obtain outside hospital culture records - PICC removed - IVF - follow lower BP - consult pall care - consult wound care - fecal occult - am labs, replace lytes prn - PT/OT/CM/SW - delirium precautions: increase activity - DVT prophylaxis: enoxaparin and encourage ambulation Complexity: Acute illness with systemic symptoms (MOD). Risk: Low risk diagnostic testing or treatment (LOW). Advance Directive: DNR-CC Anticipated Discharge - Date - TBD - Location - Skilled Facility - Pending the following - clinical course, Cx results, Mergers And Acquisitions Attorney recommendations Total time spent (which include face to face and non face to face encounters) : 35 minutes Toxic drug monitoring/narrow therapeutic index drug monitoring : # Drug name : N/A # Route administered : N/A # Method of monitoring : N/A Extended Emergency Contact Information Primary Emergency Contact: Sean Mccann Mobile Relation: Hunter Steven Pravin De La Cruz MD Division of Hospitalist Medicine [facility] [1] History reviewed. No pertinent past medical history. [2] aspirin, 81 mg, Oral, Daily atorvastatin, 80 mg, Oral, Nightly citalopram, 10 mg, Oral, Daily enoxaparin, 30 mg, SubCUTAneous, Daily ferrous sulfate, 325 mg, Oral, Daily with breakfast gabapentin, 300 mg, Oral, BID insulin lispro, 0-6 Units, SubCUTAneous, TID WC And insulin lispro, 0-6 Units, SubCUTAneous, Nightly mirtazapine, 30 mg, Oral, Nightly piperacillin-tazobactam, 4,500 mg, IntraVENous, q6h sodium chloride 0.9%, 5-40 mL, IntraVENous, q12h stomahesive in petrolatum, , Topical, q8h [3] PRN medications: dextrose, dextrose, glucagon (rDNA), glucose, HYDROmorphone, naloxone, oxyCODONE, polyethylene glycol (PEG) 3350, prochlorperazine, sodium chloride, sodium chloride, sodium chloride 0.9%, stomahesive in petrolatum [4] Hospitalist Progress Note 11/04/2024 Subjective: Admit Date: 10/31/2024 PCP: No primary care provider on file. Room#: [id number] A BRIEF HOSPITAL COURSE: Yoko is a 69 y.o. female with past medical history below who presents with chief complaint listed above. Patient was sent from [facility] to [facility] for concerning findings on CT abdominal scan. Patient initially was sent to nursing home facility from [facility] for a partial amputation of her right foot. She had osteomyelitis. Patient was discharged on Zosyn and had a right PICC line placed. While in nursing home facility she completed her course of Zosyn for foot wound. That she then contracted pneumonia or started on IV Rocephin. That ended last week. Patient did have a elevated white count and positive blood cultures so they sent her to the hospital. Patient was found to have 2 abdominal abscesses and possible osteomyelitis. Patient currently has a sacral wound, left lower quadrant fistula draining purulent drainage, two left heel wounds and healing right partial foot amputation. She was started on antibiotics and admitted. CT A/P showed no abscess, mild bowel wall thickening and inflammation in the splenic flecture and fistulous tract in the LLQ. She required blood tx 11/01 for hb 6.5. ID consulted for ABX mangement. Interval History: 11/04: D/W cx results and answered questions. She feel well and denies CP or SOB. 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 ABX per ID. She feels ok today. No complaints. 11/02: She c/o fatigue. She denies CP or SOB. No acute events overnight. D/W nurse and TCC. D/W ID - will need more culture information from outside hospitals - D/W floor staff and attempting to obtain. 11/01: She c/o granulized pain and fatigue. No CP or SOB. No overnight issues. Case and plan discussed with patient and bedside nurse. All questions answered. Adult diet Regular 24HR INTAKE/OUTPUT: No intake or output data in the 24 hours ending 11/04/24 1351 Past Medical History: Medical History[1] LABS: CBC: Recent Labs 11/02/2430911/04/24 0318 WBC 6.6 5.3 RBC 3.79* 3.80 HGB 8.9* 8.9* HCT 28.7* 28.9* MCV 75.7* 76.1* RDW 19.3* 19.6* PLT 309 342 BMP: Recent Labs 11/02/2430911/04/24 031 NA 137 139 K 4.0 3.5 CL 109* 112* CO2 19* 22* BUN 5* 3* CREATININE 0.50* 0.50* GLUCOSE 74* 71* CALCIUM 7.5* 7.3* ANIONGAP 9 5 LIVER PROFILE: No results for input(s): "AST", "ALT", "BILITOT", "ALKPHOS", "PROT" in the last 72 hours. No lab exists for component: LABALBU PT/INR: No results for input(s): "PROTIME", "INR" in the last 72 hours. CARDIAC ENZYMES: No results for input(s): "TROPONINI" in the last 72 hours. Procalcitonin: No results found for: "PROCAL" COVID-19 PCR: No results for input(s): "COVID19" in the last 72 hours. Objective: Vitals: BP (!) 103/40 (BP Location: Left arm, Patient Position: Lying) Pulse 86 Temp 36.4 C (97.5 F) (Temporal) Resp 16 Ht 4' 9.01" (1.448 m) Wt 73 lb (33.1 kg) SpO2 91% BMI 15.79 kg/m Pulse Ox: SpO2 Av % Min: 91 % Max: 93 % Supplemental O2: Physical Exam Vitals reviewed. Constitutional: General: She is not in acute distress. Comments: Chronicially ill appearing, thin, pleasant, non-labored breathing Cardiovascular: Rate and Rhythm: Normal rate and regular rhythm. Pulmonary: Effort: Pulmonary effort is normal. Breath sounds: Normal breath sounds. Abdominal: General: Bowel sounds are normal. Palpations: Abdomen is soft. Tenderness: There is no abdominal tenderness. Musculoskeletal: Comments: Toe amputations noted, fistula site ntoed Skin: Comments: Heel wound and toe amputations noted Neurological: General: No focal deficit present. Mental Status: She is alert and oriented to person, place, and time. 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 Sacral pressure injury Right heel pressure injury Left heel pressure injury Left Achilles pressure injury Acute anemia Stable chronic problems affecting care, new non-acute diagnoses: Hyperlipidemia Neuropathy Diabetes mellitus type 2 Plan As a result of the above findings & factors, the following mgmt was pursued: - ID consult - managing ABX - vancomycin 6/3 to 6/6 - zosyn 6/3 - home medications - lópez cultures - obtain outside hospital culture records - PICC removed - IVF - follow lower BP - consult pall care - consult wound care - fecal occult - am labs, replace lytes prn - PT/OT/CM/SW - delirium precautions: increase activity - DVT prophylaxis: enoxaparin and encourage ambulation Complexity: Acute illness with systemic symptoms (MOD). Risk: Low risk diagnostic testing or treatment (LOW). Advance Directive: DNR-CC Anticipated Discharge - Date - TBD - Location - Skilled Facility - Pending the following - clinical course, Cx results, M[employer] Acquis[employer] Attorney recommendations Total time spent (which include face to face and non face to face encounters) : 35 minutes Toxic drug monitoring/narrow therapeutic index drug monitoring : # Drug name : N/A # Route administered : N/A # Method of monitoring : N/A Extended Emergency Contact Information Primary Emergency Contact: Sean Mccann Mobile Relation: Son Steven De La Cruz MD Division of Hospitalist Medicine [employer] [facility] [1] History reviewed. No pertinent past medical history. [2] aspirin, 81 mg, Oral, Daily atorvastatin, 80 mg, Oral, Nightly citalopram, 10 mg, Oral, Daily enoxaparin, 30 mg, SubCUTAneous, Daily ferrous sulfate, 325 mg, Oral, Daily with breakfast gabapentin, 300 mg, Oral, BID insulin lispro, 0-6 Units, SubCUTAneous, TID WC And insulin lispro, 0-6 Units, SubCUTAneous, Nightly mirtazapine, 30 mg, Oral, Nightly piperacillin-tazobactam, 4,500 mg, IntraVENous, q6h sodium chloride 0.9%, 5-40 mL, IntraVENous, q12h stomahesive in petrolatum, , Topical, q8h [3] PRN medications: dextrose, dextrose, glucagon (rDNA), glucose, HYDROmorphone, naloxone, oxyCODONE, polyethylene glycol (PEG) 3350, prochlorperazine, sodium chloride, sodium chloride, sodium chloride 0.9%, stomahesive in petrolatum [4] Hospitalist Progress Note 11/03/2024 Subjective: Admit Date: 10/31/2024 PCP: No primary care provider on file. Room#: [id number] A BRIEF HOSPITAL COURSE: Yoko is a 69 y.o. female with past medical history below who presents with chief complaint listed above. Patient was sent from [facility] to [facility] for concerning findings on CT abdominal scan. Patient initially was sent to nursing home facility from [facility] for a partial amputation of her right foot. She had osteomyelitis. Patient was discharged on Zosyn and had a right PICC line placed. While in nursing home facility she completed her course of Zosyn for foot wound. That she then contracted pneumonia or started on IV Rocephin. That ended last week. Patient did have a elevated white count and positive blood cultures so they sent her to the hospital. Patient was found to have 2 abdominal abscesses and possible osteomyelitis. Patient currently has a sacral wound, left lower quadrant fistula draining purulent drainage, two left heel wounds and healing right partial foot amputation. She was started on antibiotics and admitted. CT A/P showed no abscess, mild bowel wall thickening and inflammation in the splenic flecture and fistulous tract in the LLQ. She required blood tx 11/01 for hb 6.5. ID consulted for ABX mangement. Interval History: 11/03: paper work says DNR - C C - defer to [facility] care skyler is following. ABX per ID. She feels ok today. No complaints. 11/02: She c/o fatigue. She denies CP or SOB. No acute events overnight. D/W nurse and TCC. D/W ID - will need more culture information from outside hospitals - D/W floor staff and attempting to obtain. 11/01: She c/o granulized pain and fatigue. No CP or SOB. No overnight issues. Case and plan discussed with patient and bedside nurse. All questions answered. Adult diet Regular 24HR INTAKE/OUTPUT: Intake/Output Summary (Last 24 hours) at 11/03/2024 1344 Last data filed at 11/03/2024 0350 Gross per 24 hour Intake 200 ml Output 300 ml Net -100 ml Past Medical History: Medical History[1] LABS: CBC: Recent Labs 10/31/24 14211/01/24 0037 11/01/24 0901 11/02/24 0310 WBC 8.4 6.2 -- 6.6 RBC 3.14* 2.94* -- 3.79* HGB 7.0* 6.5* 9.3* 8.9* HCT 22.5* 21.0* 29.5* 28.7* MCV 71.7* 71.4* -- 75.7* RDW 17.8* 17.8* -- 19.3* PLT 273 271 -- 309 BMP: Recent Labs 10/31/24 1425 11/01/24 0037 11/02/24 0310 NA 135* 135* 137 K 4.0 3.9 4.0 CL 105 108* 109* CO2 21* 21* 19* BUN 9 8* 5* CREATININE 0.46* 0.49* 0.50* GLUCOSE 112 90 74* CALCIUM 7.6* 7.7* 7.5* ANIONGAP 9 6 9 LIVER PROFILE: Recent Labs 10/31/241424 AST 52* ALT 61* BILITOT 0.4 ALKPHOS 285* PROT 5.4* PT/INR: No results for input(s): "PROTIME", "INR" in the last 72 hours. CARDIAC ENZYMES: No results for input(s): "TROPONINI" in the last 72 hours. Procalcitonin: No results found for: "PROCAL" COVID-19 PCR: No results for input(s): "COVID19" in the last 72 hours. Objective: Vitals: BP (!) 113/45 (BP Location: Left arm, Patient Position: Lying) Pulse 81 Temp 36.4 C (97.5 F) (Temporal) Resp 16 Ht 4' 9.01" (1.448 m) Wt 73 lb (33.1 kg) SpO2 92% BMI 15.79 kg/m Pulse Ox: SpO2 Av.3 % Min: 92 % Max: 99 % Supplemental O2: Physical Exam Vitals reviewed. Constitutional: General: She is not in acute distress. Comments: Chronicially ill appearing, thin, pleasant, non-labored breathing Cardiovascular: Rate and Rhythm: Normal rate and regular rhythm. Pulmonary: Effort: Pulmonary effort is normal. Breath sounds: Normal breath sounds. Abdominal: General: Bowel sounds are normal. Palpations: Abdomen is soft. Tenderness: There is no abdominal tenderness. Musculoskeletal: Comments: Toe amputations noted, fistula site ntoed Skin: Comments: Heel wound and toe amputations noted Neurological: General: No focal deficit present. Mental Status: She is alert and oriented to person, place, and time. 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 Sacral pressure injury Right heel pressure injury Left heel pressure injury Left Achilles pressure injury Acute anemia Stable chronic problems affecting care, new non-acute diagnoses: Hyperlipidemia Neuropathy Diabetes mellitus type 2 Plan As a result of the above findings & factors, the following mgmt was pursued: - ID consult - managing ABX - vancomycin 6/3 to 6/6 - zosyn 6/3 - home medications - lópez cultures - obtain outside hospital culture records - PICC removed - IVF - follow lower BP - consult pall care - consult wound care - fecal occult - am labs, replace lytes prn - PT/OT/CM/SW - delirium precautions: increase activity - DVT prophylaxis: enoxaparin and encourage ambulation Complexity: Acute illness with systemic symptoms (MOD). Risk: Low risk diagnostic testing or treatment (LOW). Advance Directive: DNR-CC Anticipated Discharge - Date - TBD - Location - Skilled Facility - Pending the following - clinical course, Cx results, Mergers And Acquisitions Attorney recommendations Total time spent (which include face to face and non face to face encounters) : 40 minutes Toxic drug monitoring/narrow therapeutic index drug monitoring : # Drug name : N/A # Route administered : N/A # Method of monitoring : N/A Extended Emergency Contact Information Primary Emergency Contact: Sean Mccann Mobile Relation: Hunter Steven De La Cruz MD Division of Hospitalist Medicine [facility] [1] History reviewed. No pertinent past medical history. [2] aspirin, 81 mg, Oral, Daily atorvastatin, 80 mg, Oral, Nightly citalopram, 10 mg, Oral, Daily enoxaparin, 30 mg, SubCUTAneous, Daily ferrous sulfate, 325 mg, Oral, Daily with breakfast gabapentin, 300 mg, Oral, BID insulin lispro, 0-6 Units, SubCUTAneous, TID WC And insulin lispro, 0-6 Units, SubCUTAneous, Nightly mirtazapine, 30 mg, Oral, Nightly piperacillin-tazobactam, 4,500 mg, IntraVENous, q6h sodium chloride 0.9%, 5-40 mL, IntraVENous, q12h stomahesive in petrolatum, , Topical, q8h [3] PRN medications: dextrose, dextrose, glucagon (rDNA), glucose, HYDROmorphone, naloxone, oxyCODONE, polyethylene glycol (PEG) 3350, prochlorperazine, sodium chloride, sodium chloride, sodium chloride 0.9%, stomahesive in petrolatum [4] Vancomycin therapy has been discontinued by Ida Suarez MD on 11/03/24. Thank you for the consult. Pharmacy signing off for vancomycin dosing. Fay Fisher PharmD Date: 11/03/24 Time: 1:28 PM Images from the original note were not included. Palliative Care Progress Note Chief Complaint: Yoko Emanuel is a 69 y.o. female with chief complaint of wound pain. Palliative Care provider will follow-up on week 11/06. Assessment/Plan Goals of care Yoko Emanuel retains capacity for medical decision-making -legal surrogate decision maker is Sean naidu ( ) -goals of care include: 1) obtain medical information prior to decision-making, expresses due to weakness she is doubtful she would survive surgery however is open to other treatments if needed. 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 - mgmt per primary team - 10/31/24: CT A/P report reviewed Wounds with osteomyelitis/bacteremia - wound team on board, their initial consult from today appreciated with pictures - ID consulted - per primary currently on IV abx - PICC line she had in RUE has been removed - 10/31/24 blood cultures positive, repeat from 11/02/24 pending Wound pain/B feet pain - continue gabapentin to 300mg twice per day - continue oxycodone 5mg PO q4h prn, monitor needs--this has been helpful - ADD IV hydromorphone 0.5mg daily PRN prior to dressing changes only, she is rather fearful of daily dressing changes due to pain Anemia - hgb 11/02/24 8.9 Protein calorie malnutrition - 10/31/24: albumin low at 1.7 - her pain has limited her wanting to eat - at sone point had been on TPN, her appetite is improved Risk for constipation - last BM 11/02/24 - denies constipation - due to prn opiates and immobility - has prn polyethylene glycol Debility - PT/OT when able - came from SNF prior to hortencia hospitalization Palliative Care Encounter -Code Status: DNR-CC - Ongoing counseling of patient and family regarding diagnoses of wound, Determining prognosis in serious illness of wounds - will continue treatment including oxycodone and gabapentin - assessed patient or surrogate's understanding of medical condition, addressed goals of care pertinent to the condition and communicated this to the medical team Discharge planning: Not ready for discharge due to ongoing medical work-up/critical illness Patient meets criteria for general inpatient hospice care: No Palliative Care IDT members involved: None Discussed the plan of care with the other interdisciplinary team (IDT) members of the Palliative Care and Hospice teams and Patient and Floor Nurse. Subjective: Subjective/Events Since last seen: pending repeat blood cultures, her pain is fairly well controlled with adjustments in medications. No CP, abdominal pain, breathing easy, no nausea, vomiting, appetite improving slowly, BM yesterday. Yoko Emanuel is a 69 y.o. female transferred to [facility] from [facility] for CT demonstrating abdominal fistula. This is her 3rd hospitalization in few months, had been at [facility] for partial R foot amputation, positive osteomyelitis with IV abx had completed abx at [facility] ([facility], [place]), developed PNA and treated for this, at facility with positive blood cultures and elevated WBC to [place] [facility]. CT A/P revealing abdominal fistula prompting transfer. Since at [facility], repeat CT A/P completed, pending ID and wound consults. Adamant she would not want surgical interventions prompting palliative care consult for goals of care Palliative Care Assessments: Goals of care: Continue Current Management Advanced Directives: DNR Functional Assessment: PPS 60% amb reduced; can't do normal housework/sig disease; occ assistance; normal or reduced intake; full LOC or confusion Prognosis: uncertain at this time Spiritual Assessment: No spiritual distress identified Bereavement and Grief: Grief Issues Not Identified PDMP/OARRS Reviewed: Yes-no reportable medications Social history: Marital status: Children: 2 adult child(alyson)--sons Living status: assisted Work history: retired status: No [employer] lillian: Unknown ROS: See palliative care ROS/ESAS below; All other systems were reviewed and are negative. [place] Symptom Assessment Score [place] Score Pain Score (if non-verbal, add .FLACC below) 2 Tiredness Score 0 Nausea Score 0 Depression Score 0 Anxiety Score 5 Drowsiness Score 0 Anorexia Score (0= eating well, 10= not eating) 7 Wellbeing Score (10= worst sense of well-being) 5 Constipation 0 Dyspnea Score (0= no shortness of breath) 0 Family Meeting: Participants: patient Family meeting was held to discuss:Symptom Management Objective: BP (!) 113/45 (BP Location: Left arm, Patient Position: Lying) Pulse 81 Temp 36.4 C (97.5 F) (Temporal) Resp 16 Ht 4' 9.01" (1.448 m) Wt 73 lb (33.1 kg) SpO2 92% BMI 15.79 kg/m Physical Exam Vitals and nursing note reviewed. Constitutional: Appearance: She is ill-appearing. HENT: Head: Normocephalic and atraumatic. Mouth/Throat: Mouth: Mucous membranes are moist. Eyes: General: Right eye: No discharge. Left eye: No discharge. Cardiovascular: Rate and Rhythm: Normal rate and regular rhythm. Pulses: Normal pulses. Heart sounds: Normal heart sounds. No murmur heard. Comments: R partial foot amputation No edema B post tib/dorsalis pedis palpable Pulmonary: Effort: Pulmonary effort is normal. Breath sounds: Normal breath sounds. Abdominal: General: Bowel sounds are normal. There is no distension. Palpations: Abdomen is soft. There is no mass. Comments: Abdominal fistula Genitourinary: Comments: External female catheter Musculoskeletal: General: Deformity (R foot) present. Cervical back: Normal range of motion and neck supple. Right lower leg: No edema. Left lower leg: No edema. Skin: General: Skin is warm and dry. Comments: Fragile, specialty mattress Neurological: General: No focal deficit present. Mental Status: She is oriented to person, place, and time. Psychiatric: Comments: Slightly anxious with possibility of daily dressing changes Medication information: 24-hour PRN meds received: oxycodone 5mg times 4 Results/Verification of Data Review Objective data reviewed (must include dates reviewed for labs, imaging reports and other specialty notes): No new labs, progress notes from ID dated 11/02/24 reviewed Data in Support of Terminal Illness: Is patient hospice appropriate? N/A NIRMAL Broderick CNP Pharmacy to Dose Vancomycin - Progress Note Lab Results Component Value Date CREATININE 0.50 (L) 11/02/2024 BUN 5 (L) 11/02/2024 WBC 6.6 11/02/2024 VANCORANDOM 11.8 11/02/2024 VANCOTROUGH 17.3 11/01/2024 Doses, serum creatinine, and vancomycin levels interfaced automatically to Curis and data has been analyzed and interpreted. Infectious Diagnosis: SSTI Est CrCl: 55.5 mL/min (Cockcroft-Gault) Assessment: Current regimen vancomycin 750 mg every 12 hours (22.7 mg/kg) Predicted AUC = 585 mg/L*hr (goal 400-600 mg/L*hr) PAUC = 98% (probability that AUC is >400 mg/L*hr) Pconc = 18% (probability that Ctrough is above 20 mcg/mL (toxicity)) Plan: Is the current dose therapeutic? [x] Yes - obtain next level on 11/04 unless predicted AUC is sub-/supra-therapeutic or change in serum creatinine. [] No - change current regimen to vancomycin mg every hours ( mg/kg) for predicted AUC mg/L*hr, PAUC = % , and Pconc* = %. Obtain next level on Trend serum creatinine. Trend AUC using Bayesian Modeling. Orders placed. DATE: 11/03/24 TIME: 8:42 AM Rell White RPh Clinical Pharmacist Available via Secure Chat Images from the original note were not included. [facility] - Infectious Diseases Attending Progress Note Subjective: Following for CLBSI. Pt hard of hearing, but answering questions appropriately. Pt reports ongoing drainage from her ECF without change. No itching, rashes. No nausea, vomiting. Pt reports she is constipated and is waiting to have a bowel movement. Chart, vitals, labs reviewed. Pt is afebrile. Objective: Vitals: Patient Vitals for the past 24 hrs: BP Temp Temp src Pulse Resp SpO2 11/03/24 0537 (!) 111/47 36.4 C (97.5 F) Temporal 84 18 92 % 11/03/24 0058 (!) 103/43 36.7 C (98 F) Temporal 55 16 99 % Physical Exam Vitals and nursing note reviewed. Constitutional: General: She is not in acute distress. Appearance: She is ill-appearing. She is not toxic-appearing or diaphoretic. Comments: cachectic HENT: Head: Normocephalic and atraumatic. Right Ear: External ear normal. Left Ear: External ear normal. Nose: Nose normal. Eyes: General: No scleral icterus. Right eye: No discharge. Left eye: No discharge. Conjunctiva/sclera: Conjunctivae normal. Cardiovascular: Rate and Rhythm: Normal rate and regular rhythm. Heart sounds: Normal heart sounds. Pulmonary: Effort: Pulmonary effort is normal. Abdominal: Palpations: Abdomen is soft. Musculoskeletal: Comments: Loss of muscle x 4 limbs; s/p R TMA Skin: General: Skin is warm and dry. Findings: No rash. Neurological: Mental Status: She is alert and oriented to person, place, and time. Mental status is at baseline. Comments: Hard of hearing Psychiatric: Mood and Affect: Mood normal. Behavior: Behavior normal. Thought Content: Thought content normal. Judgment: Judgment normal. Labs: Lab Results Component Value Date/Time NA 137 11/02/2024 0310 K 4.0 11/02/2024 031 CL 109 (H) 11/02/2024 031 CO2 19 (L) 11/02/2024 031 BUN 5 (L) 11/02/2024 031 CREATININE 0.50 (L) 11/02/2024 031 GLUCOSE 74 (L) 11/02/2024 031 CALCIUM 7.5 (L) 11/02/2024 031 PROT 5.4 (L) 10/31/2024 142 BILITOT 0.4 10/31/20241424 ALKPHOS 285 (H) 10/31/2024 142 AST 52 (H) 10/31/2024 142 ALT 61 (H) 10/31/2024 142 Lab Results Component Value Date/Time WBC 6.6 11/02/2024 0310 HGB 8.9 (L) 11/02/2024 0310 HCT 28.7 (L) 11/02/2024 0310 PLT 309 11/02/2024 031 LYMPHOPCT 6.5 (L) 11/02/2024 0310 LYMPHOPCT 4 (L) 10/31/2024 1425 MONOPCT 10.8 11/02/2024 0310 MONOPCT 4 (L) 10/31/2024 1425 BASOPCT 1.4 11/02/2024 0310 NEUTROABS 4.9 11/02/2024 0310 Micro: 11/02 BC 2/2 NGTD 10/31 cath tip >15CFU K pneumo 10/31 wound abdomen enteric lilly 10/31 BC 07/02 K pneumo Lines: PIVs Radiography/Echo/Other: 10/31 CT a/p 1. Mild bowel wall thickening and inflammation in the splenic flexure of the left colon. 2. Fistulous tract to the skin surface in the left lower quadrant. 3. No loculated collections to suggest an abscess. 4. Small bilateral infiltrates and effusions, right greater than left. 5. L1 and L2 compression fractures. The age of these fractures is uncertain. 10/31 CXR Interstitial prominence, which may be secondary to pulmonary edema, atypical infection or may in part be chronic. Mild left basilar infiltrate also present. Follow-up recommended. Probable small right-sided pleural effusion. Antimicrobials, Start/End Dates: Vanc Pip tazo Impression: K pneumo bacteremia from PICC CLSBI, already removed Possible sacral osteomyelitis ECF Malnutrition Currently DNRCC, but notes report pt not there yet Plan: - ? Need to update code status; pt currently DNRCC - follow up repeat blood cultures - stop vancomycin - continue pip tazo - follow up full sens on K pneumo from blood - follow up repeat blood cultures - Dr. Ibarra and Karie Ibanez [employer]PER[employer] cover this weekend Ida Suarez MD Based on diagnoses and management, combination of acute and chronic problems, exacerbations and/or acuity, this visit should be considered to be of moderate complexity. Hospitalist Progress Note 11/02/2024 Subjective: Admit Date: 10/31/2024 PCP: No primary care provider on file. Room#: [id number] A BRIEF HOSPITAL COURSE: Yoko is a 69 y.o. female with past medical history below who presents with chief complaint listed above. Patient was sent from [facility] to [facility] for concerning findings on CT abdominal scan. Patient initially was sent to nursing home facility from [facility] for a partial amputation of her right foot. She had osteomyelitis. Patient was discharged on Zosyn and had a right PICC line placed. While in nursing home facility she completed her course of Zosyn for foot wound. That she then contracted pneumonia or started on IV Rocephin. That ended last week. Patient did have a elevated white count and positive blood cultures so they sent her to the hospital. Patient was found to have 2 abdominal abscesses and possible osteomyelitis. Patient currently has a sacral wound, left lower quadrant fistula draining purulent drainage, two left heel wounds and healing right partial foot amputation. She was started on antibiotics and admitted. CT A/P showed no abscess, mild bowel wall thickening and inflammation in the splenic flecture and fistulous tract in the LLQ. She required blood tx 11/01 for hb 6.5. ID consulted for ABX mangement. Interval History: 11/03: She c/o fatigue. She denies CP or SOB. No acute events overnight. D/W nurse and TCC. D/W ID - will need more culture information from outside hospitals - D/W floor staff and attempting to obtain. 11/02: She c/o granulized pain and fatigue. No CP or SOB. No overnight issues. Case and plan discussed with patient and bedside nurse. All questions answered. Adult diet Regular 24HR INTAKE/OUTPUT: No intake or output data in the 24 hours ending 11/02/24 1354 Past Medical History: Medical History[1] LABS: CBC: Recent Labs 10/31/24 1425 11/01/24 0037 11/01/24 0901 11/02/24 0310 WBC 8.4 6.2 -- 6.6 RBC 3.14* 2.94* -- 3.79* HGB 7.0* 6.5* 9.3* 8.9* HCT 22.5* 21.0* 29.5* 28.7* MCV 71.7* 71.4* -- 75.7* RDW 17.8* 17.8* -- 19.3* PLT 273 271 -- 309 BMP: Recent Labs 10/31/24 1425 11/01/24 0037 11/02/24 0310 NA 135* 135* 137 K 4.0 3.9 4.0 CL 105 108* 109* CO2 21* 21* 19* BUN 9 8* 5* CREATININE 0.46* 0.49* 0.50* GLUCOSE 112 90 74* CALCIUM 7.6* 7.7* 7.5* ANIONGAP 9 6 9 LIVER PROFILE: Recent Labs 10/31/24 1425 AST 52* ALT 61* BILITOT 0.4 ALKPHOS 285* PROT 5.4* PT/INR: No results for input(s): "PROTIME", "INR" in the last 72 hours. CARDIAC ENZYMES: No results for input(s): "TROPONINI" in the last 72 hours. Procalcitonin: No results found for: "PROCAL" COVID-19 PCR: No results for input(s): "COVID19" in the last 72 hours. Objective: Vitals: BP 107/53 Pulse 84 Temp 36.6 C (97.8 F) (Temporal) Resp 18 Ht 4' 9.01" (1.448 m) Wt 73 lb (33.1 kg) SpO2 92% BMI 15.79 kg/m Pulse Ox: SpO2 Av % Min: 92 % Max: 92 % Supplemental O2: Physical Exam Vitals reviewed. Constitutional: General: She is not in acute distress. Comments: Chronicially ill appearing, thin, pleasant, non-labored breathing Cardiovascular: Rate and Rhythm: Normal rate and regular rhythm. Pulmonary: Effort: Pulmonary effort is normal. Breath sounds: Normal breath sounds. Abdominal: General: Bowel sounds are normal. Palpations: Abdomen is soft. Tenderness: There is no abdominal tenderness. Musculoskeletal: Comments: Toe amputations noted, fistula site ntoed Skin: Comments: Heel wound and toe amputations noted Neurological: General: No focal deficit present. Mental Status: She is alert and oriented to person, place, and time. 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 Sacral pressure injury Right heel pressure injury Left heel pressure injury Left Achilles pressure injury Acute anemia Stable chronic problems affecting care, new non-acute diagnoses: Hyperlipidemia Neuropathy Diabetes mellitus type 2 Plan As a result of the above findings & factors, the following mgmt was pursued: - ID consult - vancomycin and zosyn 6/3 - home medications - lópez cultures - obtain outside hospital culture records - PICC removed - IVF - follow lower BP - consult pall care - consult wound care - fecal occult - am labs, replace lytes prn - PT/OT/CM/SW - delirium precautions: increase activity - DVT prophylaxis: enoxaparin and encourage ambulation Complexity: Acute illness with systemic symptoms (MOD). Risk: Low risk diagnostic testing or treatment (LOW). Advance Directive: DNR-CC Anticipated Discharge - Date - TBD - Location - Skilled Facility - Pending the following - clinical course, Cx results, Mergers And Acquisitions Attorney recommendations Total time spent (which include face to face and non face to face encounters) : 40 minutes Toxic drug monitoring/narrow therapeutic index drug monitoring : # Drug name : N/A # Route administered : N/A # Method of monitoring : N/A Extended Emergency Contact Information Primary Emergency Contact: Sean Mccann Mobile Relation: Hunter De La Cruz MD Division of Hospitalist Medicine [facility] [1] History reviewed. No pertinent past medical history. [2] aspirin, 81 mg, Oral, Daily atorvastatin, 80 mg, Oral, Nightly citalopram, 10 mg, Oral, Daily enoxaparin, 30 mg, SubCUTAneous, Daily ferrous sulfate, 325 mg, Oral, Daily with breakfast gabapentin, 300 mg, Oral, BID insulin lispro, 0-6 Units, SubCUTAneous, TID WC And insulin lispro, 0-6 Units, SubCUTAneous, Nightly mirtazapine, 30 mg, Oral, Nightly piperacillin-tazobactam, 4,500 mg, IntraVENous, q6h sodium chloride 0.9%, 5-40 mL, IntraVENous, q12h stomahesive in petrolatum, , Topical, q8h vancomycin, 750 mg, IntraVENous, q12h [3] PRN medications: dextrose, dextrose, glucagon (rDNA), glucose, naloxone, oxyCODONE, polyethylene glycol (PEG) 3350, prochlorperazine, sodium chloride, sodium chloride, sodium chloride 0.9%, stomahesive in petrolatum [4] sodium chloride, 100 mL/hr, Last Rate: 100 mL/hr (11/02/24 0917) Pharmacy to Dose Vancomycin - Progress Note Lab Results Component Value Date CREATININE 0.50 (L) 11/02/2024 BUN 5 (L) 11/02/2024 WBC 6.6 11/02/2024 VANCORANDOM 11.8 11/02/2024 VANCOTROUGH 17.3 11/01/2024 Doses, serum creatinine, and vancomycin levels interfaced automatically to Curis and data has been analyzed and interpreted. Infectious Diagnosis: SSTI Est CrCl: 55 mL/min (Cockcroft-Gault) Assessment: Current regimen vancomycin 500 mg every 12 hours (15.1 mg/kg) Predicted AUC = 390 mg/L*hr (goal 400-600 mg/L*hr) PAUC = 45% (probability that AUC is >400 mg/L*hr) Pconc = 1% (probability that Ctrough is above 20 mcg/mL (toxicity)) Plan: Is the current dose therapeutic? [] Yes - obtain next level on unless predicted AUC is sub-/supra-therapeutic or change in serum creatinine. [x] No - change current regimen to vancomycin 750 mg every 12 hours (22.7 mg/kg) for predicted AUC 584 mg/L*hr, PAUC = 98% , and Pconc* = 17%. Obtain next level on 11/03. Trend serum creatinine. Trend AUC using Bayesian Modeling. Orders placed. DATE: 11/02/24 TIME: 10:15 AM Rell White [facility] Clinical Pharmacist Available via Secure Chat [facility] - Infectious Diseases Attending Progress Note Subjective: No acute events, afebrile, and still with mild moist cough. Also has chronic pain( phantom) to R foot, along with to her sacral decub. I contacted ECF and spoke with unit nurse taking care of her. I also requested labs and records to be faxed over to . Appears she was started on TPN from her recent hospitalization and while in ECF for the fistula issue, but she mentions being able to tolerate po , and just cleans up her draining fistula with wet cloth twice a day for years. Has not been evaluated by surgery for this, and is not ready for any operation just yet, acknowledging she has improve her nutritional status. Denies ever having colonoscopy done to assess ECF.No voiding issues. Open to Surgical input however. Also just finished a course of Doxycycline and Ceftriaxone for Pneumonia on 10/25. ON routine labs, her WBC jumped and prompted her ED evaluation at [facility]. She was also having low grade temps, but No obvious N/V or issues with her PICC site. PICC originally placed for IV antibiotics after her TMA in July. Objective: Vitals: Patient Vitals for the past 24 hrs: BP Temp Temp src Pulse Resp SpO2 11/02/24 0741 107/53 36.6 C (97.8 F) Temporal 84 18 92 % 11/01/24 1959 (!) 97/47 36.6 C (97.9 F) Temporal 87 16 92 % 11/01/24 1711 (!) 93/39 36.2 C (97.2 F) Temporal 78 14 92 % 11/01/24 1206 (!) 98/36 -- -- 81 -- -- Physical Exam Vitals reviewed. Constitutional: General: She is not in acute distress. Appearance: Normal appearance. She is ill-appearing (frail , thin). She is not toxic-appearing. Eyes: General: No scleral icterus. Extraocular Movements: Extraocular movements intact. Cardiovascular: Rate and Rhythm: Normal rate and regular rhythm. Pulses: Normal pulses. Heart sounds: Normal heart sounds. No murmur heard. Pulmonary: Effort: Pulmonary effort is normal. No respiratory distress. Breath sounds: Normal breath sounds. Abdominal: General: There is no distension. Palpations: Abdomen is soft. Tenderness: There is no abdominal tenderness (mild erythema surrounding fistula, with drainage). Musculoskeletal: General: Signs of injury (R foot stump wrapped, L heel unstageable ulcer, with Heel drop splint, did not exaimine sacral ulcer) present. Cervical back: Normal range of motion and neck supple. Lymphadenopathy: Cervical: No cervical adenopathy. Skin: Coloration: Skin is not jaundiced. Findings: Erythema present. Neurological: General: No focal deficit present. Mental Status: She is alert and oriented to person, place, and time. Motor: No weakness. Psychiatric: Mood and Affect: Mood normal. Thought Content: Thought content normal. Labs: Lab Results Component Value Date/Time NA 137 11/02/2024309 K 4.0 11/02/2024309 CL 109 (H) 11/02/2024309 CO2 19 (L) 11/02/2024309 BUN 5 (L) 11/02/2024309 CREATININE 0.50 (L) 11/02/2024309 GLUCOSE 74 (L) 11/02/2024 031 CALCIUM 7.5 (L) 11/02/2024309 PROT 5.4 (L) 10/31/2024 142 BILITOT 0.4 10/31/2024 142 ALKPHOS 285 (H) 10/31/2024 142 AST 52 (H) 10/31/2024 142 ALT 61 (H) 10/31/2024 142 Lab Results Component Value Date/Time WBC 6.6 11/02/2024309 HGB 8.9 (L) 11/02/2024 031 HCT 28.7 (L) 11/02/2024 031 PLT 309 11/02/2024 031 LYMPHOPCT 6.5 (L) 11/02/2024 031 LYMPHOPCT 4 (L) 10/31/2024 142 MONOPCT 10.8 11/02/2024 031 MONOPCT 4 (L) 10/31/2024 142 BASOPCT 1.4 11/02/2024 031 NEUTROABS 4.9 11/02/2024 031 Micro: reviewed 10/31 Cath tip Kleb pneumoniae ( R amp- S-all others) Wound cx: mod enteric lilly BC Kleb pneumoniae ECF labs requested to be faxed to [facility]6 Lines: PIV Radiography/Echo/Other: reviewed Antimicrobials, Start/End Dates: Vancomycin Ppiptazo Impression: 69 F ECF resident with PVD, recent partial ray amputation for gangrene, an completed a course of IV antibiotics recently admitted with: Klebsiella Bacteremia, presumed from CLABSI( PICC) already removed and cath tip with same pathogen- already on broad coverage. D/dx includes chronic ECF and multiple wounds. Multiple pressure ulcers, heel( unstageable), possible sacral OM,- wound care for now, off loading. Theoretically her prolonged IV course to 09/22 should have covered her chronic sacral decub ulcer or OM, unless abscess present that needs surgical excision. CTAP here did not pick any obvious pelvic bone abnormalities. Recent Pneumonia- already treated Chronic abdominal fistula- favor Surgery evaluation, and if she needs TPN to promote healing, ? Need for colonoscopy too. Severe malnutrition-multifactorial Debility Tobacco use, quit recently Overall not toxic-appearing. Plan: Continue same regimen for now. De-escalate if no MRSA isolated. Recheck BC for clearance. Local wound care for now. Hospitalist Progress Note 11/01/2024 Subjective: Admit Date: 10/31/2024 PCP: No primary care provider on file. Room#: [id number] A BRIEF HOSPITAL COURSE: Yoko is a 69 y.o. female with past medical history below who presents with chief complaint listed above. Patient was sent from [facility] to [facility] for concerning findings on CT abdominal scan. Patient initially was sent to nursing home facility from [facility] for a partial amputation of her right foot. She had osteomyelitis. Patient was discharged on Zosyn and had a right PICC line placed. While in nursing home facility she completed her course of Zosyn for foot wound. That she then contracted pneumonia or started on IV Rocephin. That ended last week. Patient did have a elevated white count and positive blood cultures so they sent her to the hospital. Patient was found to have 2 abdominal abscesses and possible osteomyelitis. Patient currently has a sacral wound, left lower quadrant fistula draining purulent drainage, two left heel wounds and healing right partial foot amputation. She was started on antibiotics and admitted. CT A/P showed no abscess, mild bowel wall thickening and inflammation in the splenic flecture and fistulous tract in the LLQ. She required blood tx 11/01 for hb 6.5. Interval History: 11/02: She c/o granulized pain and fatigue. No CP or SOB. No overnight issues. Case and plan discussed with patient and bedside nurse. All questions answered. Adult diet Regular 24HR INTAKE/OUTPUT: Intake/Output Summary (Last 24 hours) at 11/01/2024 1304 Last data filed at 11/01/2024 1216 Gross per 24 hour Intake 1735 ml Output -- Net 1735 ml Past Medical History: Medical History[1] LABS: CBC: Recent Labs 10/31/24 1425 11/01/24 0037 11/01/24 0901 WBC 8.4 6.2 -- RBC 3.14* 2.94* -- HGB 7.0* 6.5* 9.3* HCT 22.5* 21.0* 29.5* MCV 71.7* 71.4* -- RDW 17.8* 17.8* -- PLT 273 271 -- BMP: Recent Labs 10/31/24 1425 11/01/24 0037 NA 135* 135* K 4.0 3.9 CL 105 108* CO2 21* 21* BUN 9 8* CREATININE 0.46* 0.49* GLUCOSE 112 90 CALCIUM 7.6* 7.7* ANIONGAP 9 6 LIVER PROFILE: Recent Labs 10/31/24 1425 AST 52* ALT 61* BILITOT 0.4 ALKPHOS 285* PROT 5.4* PT/INR: No results for input(s): "PROTIME", "INR" in the last 72 hours. CARDIAC ENZYMES: No results for input(s): "TROPONINI" in the last 72 hours. Procalcitonin: No results found for: "PROCAL" COVID-19 PCR: No results for input(s): "COVID19" in the last 72 hours. Objective: Vitals: BP (!) 98/36 Pulse 81 Temp 36.6 C (97.8 F) (Temporal) Resp 16 Ht 4' 9.01" (1.448 m) Wt 73 lb (33.1 kg) SpO2 94% BMI 15.79 kg/m Pulse Ox: SpO2 Av.6 % Min: 92 % Max: 100 % Supplemental O2: Physical Exam Vitals reviewed. Constitutional: General: She is not in acute distress. Comments: Chronicially ill appearing, thin, pleasant, non-labored breathing Cardiovascular: Rate and Rhythm: Normal rate and regular rhythm. Pulmonary: Effort: Pulmonary effort is normal. Breath sounds: Normal breath sounds. Abdominal: General: Bowel sounds are normal. Palpations: Abdomen is soft. Tenderness: There is no abdominal tenderness. Musculoskeletal: Comments: Toe amputations noted, fistula site ntoed Skin: Comments: Heel wound and toe amputations noted Neurological: General: No focal deficit present. Mental Status: She is alert and oriented to person, place, and time. 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 Sacral pressure injury Right heel pressure injury Left heel pressure injury Left Achilles pressure injury Acute anemia Stable chronic problems affecting care, new non-acute diagnoses: Hyperlipidemia Neuropathy Diabetes mellitus type 2 Plan As a result of the above findings & factors, the following mgmt was pursued: - ID consult - vancomycin and zosyn 6/3 - home medications - lópez cultures - PICC removed - IVF - follow lower BP - consult pall care - consult wound care - fecal occult - am labs, replace lytes prn - PT/OT/CM/SW - delirium precautions: increase activity - DVT prophylaxis: enoxaparin and encourage ambulation Complexity: Acute illness with systemic symptoms (MOD). Risk: Low risk diagnostic testing or treatment (LOW). Advance Directive: DNR-CC Anticipated Discharge - Date - TBD - Location - Skilled Facility - Pending the following - clinical course, Cx results, [employer] Attorney recommendations Total time spent (which include face to face and non face to face encounters) : 45 minutes Toxic drug monitoring/narrow therapeutic index drug monitoring : # Drug name : N/A # Route administered : N/A # Method of monitoring : N/A Extended Emergency Contact Information Primary Emergency Contact: Sean Mccann Mobile Relation: Son Steven Pravin De La Cruz MD Division of Hospitalist Medicine [facility] [1] History reviewed. No pertinent past medical history. [2] aspirin, 81 mg, Oral, Daily atorvastatin, 80 mg, Oral, Nightly citalopram, 10 mg, Oral, Daily enoxaparin, 30 mg, SubCUTAneous, Daily ferrous sulfate, 325 mg, Oral, Daily with breakfast gabapentin, 100 mg, Oral, TID insulin lispro, 0-6 Units, SubCUTAneous, TID WC And insulin lispro, 0-6 Units, SubCUTAneous, Nightly mirtazapine, 30 mg, Oral, Nightly piperacillin-tazobactam, 4,500 mg, IntraVENous, q6h sodium chloride 0.9%, 5-40 mL, IntraVENous, q12h stomahesive in petrolatum, , Topical, q8h vancomycin, 15 mg/kg, IntraVENous, q12h [3] PRN medications: dextrose, dextrose, glucagon (rDNA), glucose, naloxone, oxyCODONE-acetaminophen, polyethylene glycol (PEG) 3350, prochlorperazine, sodium chloride, sodium chloride, sodium chloride 0.9%, stomahesive in petrolatum [4] sodium chloride, 100 mL/hr, Last Rate: 100 mL/hr (11/01/24 1216) Pharmacy to Dose Vancomycin - Progress Note Lab Results Component Value Date CREATININE 0.49 (L) 11/01/2024 BUN 8 (L) 11/01/2024 WBC 6.2 11/01/2024 VANCOTROUGH 17.3 11/01/2024 Doses, serum creatinine, and vancomycin levels interfaced automatically to [employer] and data has been analyzed and interpreted. Infectious Diagnosis: SSTI Est CrCl: 56 mL/min (Cockcroft-Gault) Assessment: Pulse dosing Plan: Is the current dose therapeutic? [] Yes [x] No - change current regimen to vancomycin 500 mg every 12 hours (15 mg/kg) for predicted AUC 505 mg/L*hr, PAUC = 885% , and Pconc* = 15%. Obtain next level on 11/02. Trend serum creatinine. Trend AUC using Bayesian Modeling. Orders placed. DATE: 11/01/24 TIME: 7:39 AM Keke Patiño PharmD Clinical Pharmacist Available via Secure Chat [facility] ADMISSION MEDICATION RECONCILIATION Date: 10/31/24 Room:[facility] Patient Name: Yoko Emanuel Allergies: Patient has no known allergies. Age: 69 y.o. Sex: female Note: New information has been obtained regarding the patient s medications. The medication reconciliation has been updated to reflect this. Please consider making these changes/additions if appropriate: Recommendations: *FYI* - updated home med list based on paper med list from patient's [facility] SN[facility] med list. Home medications to restart if there is not a current contraindication: Heparin 5000units subcutaneous BID (Lovenox 30mg subcutaneous qday ordered as inpatient) Tylenol 650mg PO/GA q4h PRN Zinc Sulfate 220mg BID *FYI* - patient receives Clinimix TPN 10 hours/day at [facility] prior to admission, consider consulting Dr. Hart for TPN evaluation while admitted? Please page/call with questions. Date: 10/31/24 Time: 3:12 PM 10/31/2024 3:15 PM Dasha Herman PharmD documented in this encounter [facility] 11-08-2024 Note Palliative Care Prog ress Note Chief Complaint: Yoko Emanuel is a 69 y.o. female with chief complaint of wound pain. Palliative Care will follow peripherally, please contact on-call provider for urgent needs Assessment/Plan Goals of care Yoko Emanuel retains capacity for medical decision-making -legal surrogate decision maker is sonSean ( ) -goals of care include: 1) obtain medical information prior to decision-making, expresses due to weakness she is doubtful she would survive surgery however is open to other treatments if needed. 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 - mgmt per primary team - 10/31/24: CT A/P report reviewed - surgery team consult note reviewed Wounds with osteomyelitis/bacteremia - wound team on board - ID following - per primary currently on IV abx - PICC line she had in RUE has been removed - repeat blood cultures 11/02/24: no growth for 5 days Wound pain/B feet pain - continue gabapentin to 300mg three times per day - continue oxycodone 5mg PO q4h prn, monitor needs--this has been helpful - continue oxycodone 10mg daily as needed 1 hour prior to dressing changes - 11/08/24 has tolerated dressing changes quite well, overall pain is greatly improved Anemia - hgb 11/08/24 10.6 Protein calorie malnutrition - 10/31/24: albumin low at 1.7 - her pain has limited her wanting to eat--since better controlled her appetite is improved - eating a quarter of meals - told me still deciding on TPN Risk for constipation - last BM 11/07/24 - denies constipation - due to prn opiates and immobility - has prn polyethylene glycol Debility - PT/OT when able - came from SNF prior to [facility] hospitalization Palliative Care Encounter -Code Status: DNR-CC - Ongoing counseling of patient and family regarding diagnoses of wound, Determining prognosis in serious illness of wounds - will continue treatment including oxycodone and gabapentin - assessed patient or surrogate's understanding of medical condition, addressed goals of care pertinent to the condition and communicated this to the medical team - placed on MYKEL and external dc order for contracted palliative care team to see her at SNF Discharge planning: Not ready for discharge due to ongoing medical work-up/critical illness Patient meets criteria for general inpatient hospice care: No Palliative Care IDT members involved: None Discussed the plan of care with the other interdisciplinary team (IDT) members of the Palliative Care and Hospice teams and Patient and Floor Nurse. Subjective: Subjective/Events Since last seen: very pleased with pain control especially with dressing changes, in good mood and spirits, rather concerned with decision of TPN, breathing easy, no nausea, vomiting, having BM Yoko Emanuel is a 69 y.o. female transferred to [facility] from [facility] for CT demonstrating abdominal fistula. This is her 3rd hospitalization in few months, had been at [facility] for partial R foot amputation, positive osteomyelitis with IV abx had completed abx at [facility] ([facility], [place]), developed PNA and treated for this, at facility with positive blood cultures and elevated WBC to [place] [facility]. CT A/P revealing abdominal fistula prompting transfer. Since at [facility], repeat CT A/P completed, pending ID and wound consults. Adamant she would not want surgical interventions prompting palliative care consult for goals of care Palliative Care Assessments: Goals of care: Continue Current Management Advanced Directives: DNR Functional Assessment: PPS 60% amb reduced; can't do normal housework/sig disease; occ assistance; normal or reduced intake; full LOC or confusion Prognosis: uncertain at this time Spiritual Assessment: No spiritual distress identified Bereavement and Grief: Grief Issues Not Identified PDMP/OARRS Reviewed: Yes-no reportable medications Social history: Marital status: Children: 2 adult child(alyson)--sons Living status: assisted Work history: retired [place] status: No [employer] lillian: Unknown ROS: See palliative care ROS/ESAS below; All other systems were reviewed and are negative. [place] Symptom Assessment Score [place] Score Pain Score (if non-verbal, add .FLACC below) 4 Tiredness Score 0 Nausea Score 0 Depression Score 0 Anxiety Score 3 Drowsiness Score 0 Anorexia Score (0= eating well, 10= not eating) 6 Wellbeing Score (10= worst sense of well-being) 5 Constipation 0 Dyspnea Score (0= no shortness of breath) 0 Family Meeting: Participants: patient Family meeting was held to discuss:Sym (more content not included)... [facility] 11-08-2024 Note [facility] - Infectious Diseases Attending Progress Note Subjective: No new complaints, afebrile, still with ECF output. Needs pain meds prior to dressing changes. Tolerated lunch today. Objective: Vitals: Patient Vitals for the past 24 hrs: BP Temp Temp src Pulse Resp SpO2 11/08/24 0734 114/50 36.3 ?C (97.4 ?F) Temporal 69 18 91 % 11/07/242010 121/58 36.4 ?C (97.5 ?F) Temporal 68 18 92 % Physical Exam Vitals reviewed. Constitutional: Appearance: She is ill-appearing (frail but unlabored, nontoxic). Pulmonary: Effort: Pulmonary effort is normal. Abdominal: General: There is no distension. Palpations: Abdomen is soft. Tenderness: There is no abdominal tenderness (RLQ dressing with feculent strikethrough, less erythemasurrounding). Musculoskeletal: General: Signs of injury (Clean dressing to R TMA stump) present. Neurological: General: No focal deficit present. Mental Status: She is alert and oriented to person, place, and time. Psychiatric: Mood and Affect: Mood normal. Thought Content: Thought content normal. Labs: Lab Results Component Value Date/Time NA 139 11/08/2024211 K 3.6 11/08/2024211 CL 107 11/08/2024211 CO2 26 11/08/2024211 BUN 3 (L) 11/08/2024211 CREATININE 0.49 (L) 11/08/2024211 GLUCOSE 87 11/08/2024211 CALCIUM 7.7 (L) 11/08/2024 021 PROT 5.4 (L) 10/31/2024 142 BILITOT 0.4 10/31/2024 142 ALKPHOS 285 (H) 10/31/2024 142 AST 52 (H) 10/31/2024 142 ALT 61 (H) 10/31/2024 142 Lab Results Component Value Date/Time WBC 4.8 11/08/2024211 HGB 10.6 (L) 11/08/2024211 HCT 35.1 11/08/2024211 PLT 403 11/08/2024211 LYMPHOPCT 8 (L) 11/08/2024 0212 MONOPCT 4 (L) 11/08/2024 0212 BASOPCT 1 11/08/2024 0212 NEUTROABS 3.1 11/07/2024 0021 Micro: reviewed Reviewed 11/02 BC: neg 10/31 cath tip: Kleb pneumoniae( R- Amp, S- all others) 10/31 BC: Kleb pneumoniae 10/31 ECF wound cx: enteric lilly Lines: PIV Radiography/Echo/Other: reviewed Antimicrobials, Start/End Dates: Piptazo to 11/14 planned Impression: 69 F with multiple medical comorbidities and infections, transferred from OSH for evaluation of ECF: K pneumo bacteremia from PICC CLSBI, already removed, and follow up BC negative. Already covered. Possible sacral osteomyelitis-imaging unremarkable ECF- awaiting Surgical evaluation, as expected enteric flroa growing Recent TMA for gangrene, and completed 6 weeks IV antibiotics already, open wound- Chronic pain syndrome Malnutrition Nontoxic, HD stable. Plan: OK to switch to po antibiotic and finish course as above. Local wound care. [facility] 11-08-2024 Note Hospitalist Progress Note 11/08/2024 Subjective: Admit Date: 10/31/2024 PCP: No primary care provider on file. Room#: [id number] A BRIEF HOSPITAL COURSE: Yoko is a 69 y.o. female with past medical history below who presents with chief complaint listed above. Patient was sent from [facility] to [facility] for concerning findings on CT abdominal scan. Patient initially was sent to nursing home facility from [facility] for a partial amputation of her right foot. She had osteomyelitis. Patient was discharged on Zosyn and had a right PICC line placed. While in nursing home facility she completed her course of Zosyn for foot wound. That she then contracted pneumonia or started on IV Rocephin. That ended last week. Patient did have a elevated white count and positive blood cultures so they sent her to the hospital. Patient was found to have 2 abdominal abscesses and possible osteomyelitis. Patient currently has a sacral wound, left lower quadrant fistula draining purulent drainage, two leftheel wounds and healing right partial foot amputation. She was started on antibiotics and admitted. CT A/P showed no abscess, mild bowel wall thickening and inflammation in the splenic flecture and fistulous tract in the LLQ. She required blood tx 11/01 for hb 6.5. ID consulted for ABX mangement. ID recommended surgery evaluation for fistula. Interval History: Pt not interested in surgical options regarding fistula. Would also like to defer any discussions regarding colonoscopy while she heals from the above. Discussed TPN extensively again today with pt. Pt still not interested in surgical options for her abd fistula. Reviewed case with TPN team here. Pt is very high risk for TPN complication most notably of infection and TPN unlikely to have significant impact in care. Risks outweigh benefits. Discussed DC to SNF with nutritional support. She is agreeable to this plan. Adult diet Easy to Chew 24HR INTAKE/OUTPUT: No intake or output data in the 24 hours ending 11/08/24 0755 Past Medical History: Medical History[1] LABS: CBC: Recent Labs 11/06/2420411/07/24 00211/08/24 0212 WBC 4.8 5.1 4.8 RBC 4.22 4.38 4.51 HGB 9.8* 10.2* 10.6* HCT 32.4* 33.5* 35.1 MCV 76.8* 76.5* 77.8 RDW 20.1* 20.2* 20.5* PLT 378 411 403 BMP: Recent Labs 11/06/2420411/07/24 00211/08/24 021 NA 139 140 139 K 3.5 3.6 3.6 CL 108* 107 107 CO2 25 26 26 BUN <3* 3* 3* CREATININE 0.46* 0.50* 0.49* GLUCOSE 70* 83 87 CALCIUM 7.5* 7.7* 7.7* ANIONGAP 6 7 6 LIVER PROFILE: No results for input(s): "AST", "ALT", "BILITOT", "ALKPHOS", "PROT" in the last 72 hours. No lab exists for component: LABALBU PT/INR: No results for input(s): "PROTIME", "INR" in the last 72 hours. CARDIAC ENZYMES: No results for input(s): "TROPONINI" in the last 72 hours. Procalcitonin: No results found for: "PROCAL" COVID-19 PCR: No results for input(s): "COVID19" in the last 72 hours. Objective: Vitals: BP 114/50 (BP Location: Left arm, Patient Position: Lying) Pulse 69 Temp 36.3 ?C (97.4 ?F) (Temporal) Resp 18 Ht 4' 9.01" (1.448 m) Wt 73 lb (33.1 kg) SpO2 91% BMI 15.79 kg/m? Pulse Ox: SpO2 Av.7 % Min: 91 % Max: 92 % Supplemental O2: O2 Flow Rate (L/min): 1 L/min Physical Exam Vitals reviewed. Constitutional: General: She is not in acute distress. Comments: Chronicially ill appearing, thin, pleasant, non-labored breathing Cardiovascular: Rate and Rhythm: Normal rate and regular rhythm. Pulmonary: Effort: Pulmonary effort is normal. Breath sounds: Normal breath sounds. Abdominal: General: Bowel sounds are normal. Palpations: Abdomen is soft. Tenderness: There is no abdominal tenderness. Musculoskeletal: Comments: Toe amputations noted, fistula site ntoed Skin: Comments: Heel wound and toe amputations noted Neurological: General: No focal deficit present. Mental Status: She is alert and oriented to person, place, and time. Medications: Scheduled PRN Scheduled Meds[2] PRN Meds[3] Continuous Continuous Meds[4] Assessment Data: NA (LOW: 2x CAT1 or independent historian MOD: 3x CAT1 or 1x CAT3 EXTENSIVE: 3x CAT1 and 1x CAT3) Acute, acute on chronic, unstable/uncontrolled chronic problems/diagnoses: Severely malnourished K pneumo bacteremia from PICC CLSBI Infected PICC line - removed Possible sacral osteomyelitis Abdominal fistula Partial right foot amputation Sacral pressure injury Right heel pressure injury Left heel pressure injury Left Achilles pressure injury Acute anemia Stable chronic problems affecting care, new non-acute diagnoses: Hyperlipidemia Neuropathy Diabetes mellitus type 2 Plan As a result of the above findings & factors, the following mgmt was pursued: - ID consult - managing ABX - continue zosyn. Can finish course PO. - risks outweigh benefits of TPN. Optimize enteral nutrition. (more content not included)... [facility] 11-07-2024 Note Hospitalist Progress Note 11/07/2024 Subjective: Admit Date: 10/31/2024 PCP: No primary care provider on file. Room#: [id number] A BRIEF HOSPITAL COURSE: Yoko is a 69 y.o. female with past medical history below who presents with chief complaint listed above. Patient was sent from [facility] to [facility] for concerning findings on CT abdominal scan. Patient initially was sent to nursing home facility from [facility] for a partial amputation of her right foot. She had osteomyelitis. Patient was discharged on Zosyn and had a right PICC line placed. While in nursing home facility she completed her course of Zosyn for foot wound. That she then contracted pneumonia or started on IV Rocephin. That ended last week. Patient did have a elevated white count and positive blood cultures so they sent her to the hospital. Patient was found to have 2 abdominal abscesses and possible osteomyelitis. Patient currently has a sacral wound, left lower quadrant fistula draining purulent drainage, two leftheel wounds and healing right partial foot amputation. She was started on antibiotics and admitted. CT A/P showed no abscess, mild bowel wall thickening and inflammation in the splenic flecture and fistulous tract in the LLQ. She required blood tx 11/01 for hb 6.5. ID consulted for ABX mangement. ID recommended surgery evaluation for fistula. Interval History: Pt not interested in surgical options regarding fistula. Would also like to defer any discussions regarding colonoscopy while she heals from the above. Reviewed with multidisciplinary team. Consider TPN given nutritional def. Reviewed risks benefits and alternatives of TPN highlighting the risk for infection especially bld stream infection. She would like to think about this option. This was communicated to the care team. Adult diet Regular 24HR INTAKE/OUTPUT: No intake or output data in the 24 hours ending 11/07/24 1013 Past Medical History: Medical History[1] LABS: CBC: Recent Labs 11/05/24 0257 11/06/24 0205 11/07/24 0021 WBC 5.2 4.8 5.1 RBC 4.09 4.22 4.38 HGB 9.5* 9.8* 10.2* HCT 31.4* 32.4* 33.5* MCV 76.8* 76.8* 76.5* RDW 19.8* 20.1* 20.2* PLT 383 378 411 BMP: Recent Labs 11/05/24 0257 11/06/24 0205 11/07/24 0021 NA 139 139 140 K 3.5 3.5 3.6 CL 109* 108* 107 CO2 23 25 26 BUN <3* <3* 3* CREATININE 0.47* 0.46* 0.50* GLUCOSE 97 70* 83 CALCIUM 7.4* 7.5* 7.7* ANIONGAP 7 6 7 LIVER PROFILE: No results for input(s): "AST", "ALT", "BILITOT", "ALKPHOS", "PROT" in the last 72 hours. No lab exists for component: LABALBU PT/INR: No results for input(s): "PROTIME", "INR" in the last 72 hours. CARDIAC ENZYMES: No results for input(s): "TROPONINI" in the last 72 hours. Procalcitonin: No results found for: "PROCAL" COVID-19 PCR: No results for input(s): "COVID19" in the last 72 hours. Objective: Vitals: BP 113/55 (BP Location: Right arm, Patient Position: Lying) Pulse 66 Temp 37.3 ?C (99.1 ?F) (Temporal) Resp 20 Ht 4' 9.01" (1.448 m) Wt 73 lb (33.1 kg) SpO2 92% BMI 15.79 kg/m? Pulse Ox: SpO2 Av.5 % Min: 92 % Max: 93 % Supplemental O2: O2 Flow Rate (L/min): 1 L/min Physical Exam Vitals reviewed. Constitutional: General: She is not in acute distress. Comments: Chronicially ill appearing, thin, pleasant, non-labored breathing Cardiovascular: Rate and Rhythm: Normal rate and regular rhythm. Pulmonary: Effort: Pulmonary effort is normal. Breath sounds: Normal breath sounds. Abdominal: General: Bowel sounds are normal. Palpations: Abdomen is soft. Tenderness: There is no abdominal tenderness. Musculoskeletal: Comments: Toe amputations noted, fistula site ntoed Skin: Comments: Heel wound and toe amputations noted Neurological: General: No focal deficit present. Mental Status: She is alert and oriented to person, place, and time. Medications: Scheduled PRN Scheduled Meds[2] PRN Meds[3] Continuous Continuous Meds[4] Assessment Data: NA (LOW: 2x CAT1 or independent historian MOD: 3x CAT1 or 1x CAT3 EXTENSIVE: 3x CAT1 and 1x CAT3) Acute, acute on chronic, unstable/uncontrolled chronic problems/diagnoses: Severely malnourished K pneumo bacteremia from PICC CLSBI Infected PICC line - removed Possible sacral osteomyelitis Abdominal fistula Partial right foot amputation Sacral pressure injury Right heel pressure injury Left heel pressure injury Left Achilles pressure injury Acute anemia Stable chronic problems affecting care, new non-acute diagnoses: Hyperlipidemia Neuropathy Diabetes mellitus type 2 Plan As a result of the above findings & factors, the following mgmt was pursued: - ID consult - managing ABX - continue zosyn. Can finish course PO. -pt considering TPN - wound Cx ntoed - PICC removed - follow BP - pall care following peripherally - consult wound care - consult surgery for fistul (more content not included)... [facility] 11-07-[address] [facility] Wound Care Progress Note Yoko Emanuel AGE: 69 y.o. GENDER: female : 1955 Subjective: HISTORY of PRESENT ILLNESS HPI Yoko Emanuel is a 69 y.o. female who presents for a wound care follow up. HPI: 69 y.o. presents with abdominal abscess. Patient was sent from [facility] to [facility] for concerning findings on CT abdominal scan. Patient initially was sent to nursing home facility from [facility] for a partial amputation of her right foot. She had osteomyelitis. Patient was discharged on Zosyn and had a right PICC line placed. While in nursing home facility she completed her course of Zosyn for foot wound. That she then contracted pneumonia or started on IV Rocephin. That ended last week. Patient did have a elevated white count and positive blood cultures so they sent her to the hospital. Patient was found to have 2 abdominal abscesses and possible osteomyelitis. Patient currently has a sacral wound, left lower quadrant fistula draining purulent drainage, two left heel wounds and healing right partial foot amputation. Wound Care consulted for left heel, right foot, sacral ulcer and abdominal fistula. Patient resting on envella bed at time of visit. Treatments applied per wound care service. Patient updated on plan of care. Patient requesting specific treatment to abdominal wound. PAST MEDICAL HISTORY Medical History[1] PAST SURGICAL HISTORY Surgical History[2] FAMILY HISTORY Family History[3] SOCIAL HISTORY Social History[4] ALLERGIES Allergies[5] MEDICATIONS Medications Ordered Prior to Encounter[6] REVIEW OF SYSTEMS Pertinent items are noted in HPI. Objective: BP 113/55 (BP Location: Right arm, Patient Position: Lying) Pulse 66 Temp 37.3 ?C (99.1 ?F) (Temporal) Resp 20 Ht 4' 9.01" (1.448 m) Wt 73 lb (33.1 kg) SpO2 92% BMI 15.79 kg/m? PHYSICAL EXAM General appearance: in no apparent distress, in no respiratory distress and acyanotic, alert, and thin appearing Skin: warm and dry Pulmonary: Normal effort, no respiratory distress, no cyanosis Abdomen: LLQ abdomen - soft, tender and reddened with erosion of tissue d/t large fistula GI contents/brown liquid stool 11/07/24 Extremities: Right Transmet: - 3 x 7 x UTDcm - wound bed with scabbing and necrotic tissue. No drainage present. Cydney-wound intact and fragile. 11/07/24 Right heel - 4 x 4.5 x utd(cm) - wound bed with large black eschar and pink granular tissue noted along wound edges. No drainage present at time of visit. cydney wound tissue intact. 11/07/24 Left post calf - 4 x 1 x utd(cm) - wound bed with granulation tissue and small area of scabbing. Small serosang drainage present. Cydney-wound intact and fragile. 11/07/24 Left heel - 1.5 x 1 x 0.2cm - pink tissue with small open wound with thin yellow slough and pink granular tissue noted, scant serosang drainage. Cydney-wound intact and fragile. 11/07/24 Sacrum - 4.0 x 2.0 x utd(cm) - wound bed with large adherent yellow slough. Cydney wound tissue intact, slow to nadia, small serosang drainage. (Photo did not save) LABS CBC: Lab Results Component Value Date WBC 5.1 11/07/2024 HGB 10.2 (L) 11/07/2024 HCT 33.5 (L) 11/07/2024 MCV 76.5 (L) 11/07/2024 PLT 411 11/07/2024 BMP: Lab Results Component Value Date NA 140 11/07/2024 K 3.6 11/07/2024 CL 107 11/07/2024 CO2 26 11/07/2024 BUN 3 (L) 11/07/2024 CREATININE 0.50 (L) 11/07/2024 PT/INR: No results found for: "PROTIME", "INR" Prealbumin: No results found for: "PREALBUMIN" Albumin:No components found for: LABALBU Sed Rate: No results found for: "SEDRATE" Micro: No components found for: BC Assessment/Plan: Nursing staff to perform dressing change: LLQ abdomen fistula - MASD d/t fecal incontinence: -cleanse with NS, apply Maxorb to wound bed. Cover with ABD pad. Change BID and PRN. Right Transmet: NHSW (delayed closure): -Apply skin prep. Cover with ABD/kerlix. Change daily and PRN. Right heel unstageable pressure injury (POA): -cleanse with NS, apply betadine, ABD, kerlix daily/PRN Left calf venous ulcer (fat): -cleanse with NS, apply adaptic, ABD, kerlix daily/PRN Left heel stage 3 pressure injury (POA): -cleanse with NS, apply santyl to wound bed, followed by mesalt. Cover with ABD, kerlix daily/PRN Sacral unstageable pressure injury (POA): -cleanse with NS. Apply santyl to wound bed, followed by mesalt. Cover with foam dressing. Chagne daily and PRN. -envella bed -waffle chair cushion -Q2hr/PRN turns -glide sheets for T&R -continence checks Q1-2 Hrs/PRN -recommend pouching fistula site if patient consents -ID following for possible pelvic ostemyelitis Nutritional support Wound Care to follow Recommend to follow up at [facility] center after hospital discharge. Any questions or concerns please secure chat "ACH wound/ostomy (more content not included)... [facility] 11-06-2024 Note [facility] - Infectious Diseases Attending Progress Note Subjective: Arousable, same foot pain complaints, but pain meds help with phantom pain syndrome. Surgery consult evaluated patient earlier today. No other complaints. Afebrile. Objective: Vitals: Patient Vitals for the past 24 hrs: BP Temp Temp src Pulse Resp SpO2 11/06/24 0808 121/55 36.6 ?C (97.9 ?F) Temporal 68 16 92 % 11/06/24 0616 -- -- -- -- -- 94 % 11/05/245 -- -- -- -- -- 93 % 11/05/242057 112/62 36.3 ?C (97.3 ?F) Temporal 74 16 90 % 11/05/24 1536 -- -- -- 67 -- 95 % Physical Exam Vitals reviewed. Constitutional: Appearance: She is ill-appearing (frail, malnourished, thin but nontoxic). Eyes: Extraocular Movements: Extraocular movements intact. Cardiovascular: Rate and Rhythm: Normal rate and regular rhythm. Heart sounds: Normal heart sounds. No murmur heard. Pulmonary: Effort: Pulmonary effort is normal. No respiratory distress. Breath sounds: Normal breath sounds. Abdominal: General: There is no distension. Palpations: Abdomen is soft. Tenderness: There is no abdominal tenderness (Dressing over LLQ ECF with unchanged erythema). Musculoskeletal: General: Signs of injury (R clean dressing to TMA site, sacral ulcer not examined- refer to photos) present. Skin: Coloration: Skin is not jaundiced. Findings: No erythema or rash. Neurological: General: No focal deficit present. Mental Status: She is alert. Psychiatric: Thought Content: Thought content normal. Labs: Lab Results Component Value Date/Time NA 139 11/06/2024204 K 3.5 11/06/2024204 CL 108 (H) 11/06/2024204 CO2 25 11/06/2024204 BUN <3 (L) 11/06/2024204 CREATININE 0.46 (L) 11/06/2024204 GLUCOSE 70 (L) 11/06/2024204 CALCIUM 7.5 (L) 11/06/2024204 PROT 5.4 (L) 10/31/2024 142 BILITOT 0.4 10/31/2024 142 ALKPHOS 285 (H) 10/31/2024 142 AST 52 (H) 10/31/2024 142 ALT 61 (H) 10/31/2024 142 Lab Results Component Value Date/Time WBC 4.8 11/06/2024204 HGB 9.8 (L) 11/06/2024204 HCT 32.4 (L) 11/06/2024204 PLT 378 11/06/2024 0205 LYMPHOPCT 19 11/06/2024 0205 MONOPCT 7 11/06/2024 0205 BASOPCT 5 (H) 11/06/2024 0205 NEUTROABS 3.5 11/05/2024 0257 Micro: Reviewed 11/02 BC: neg 10/31 cath tip: Kleb pneumoniae( R- Amp, S- all others) 10/31 BC: Kleb pneumoniae 10/31 ECF wound cx: enteric lilly Lines: PIV Radiography/Echo/Other: reviewed Antimicrobials, Start/End Dates: Piptazo Impression: 69 F with multiple medical comorbidities and infections, transferred from OSH for evaluation of ECF: K pneumo bacteremia from PICC CLSBI, already removed, and follow up BC negative. Already covered. Possible sacral osteomyelitis-imaging unremarkable ECF- awaiting Surgical evaluation, as expected enteric flroa growing Recent TMA for gangrene, and completed 6 weeks IV antibiotics already, open wound- Chronic pain syndrome Malnutrition Nontoxic, HD stable. Plan: Per Surgery , TPN recommended, and will need PICC placed again. Colonoscopy is also considered. As for Bacteremia, clinically improving and can finish course with po antibiotic, Keflex 1gm q8 to 11/14. But if completely npo, then will continue on IV Cefazolin instead. [facility] 11-06-2024 Note Hospitalist Progress Note 11/06/2024 Subjective: Admit Date: 10/31/2024 PCP: No primary care provider on file. Room#: [id number]/[id number] A BRIEF HOSPITAL COURSE: Yoko is a 69 y.o. female with past medical history below who presents with chief complaint listed above. Patient was sent from [facility] to [facility] for concerning findings on CT abdominal scan. Patient initially was sent to nursing home facility from [facility] for a partial amputation of her right foot. She had osteomyelitis. Patient was discharged on Zosyn and had a right PICC line placed. While in nursing home facility she completed her course of Zosyn for foot wound. That she then contracted pneumonia or started on IV Rocephin. That ended last week. Patient did have a elevated white count and positive blood cultures so they sent her to the hospital. Patient was found to have 2 abdominal abscesses and possible osteomyelitis. Patient currently has a sacral wound, left lower quadrant fistula draining purulent drainage, two leftheel wounds and healing right partial foot amputation. She was started on antibiotics and admitted. CT A/P showed no abscess, mild bowel wall thickening and inflammation in the splenic flecture and fistulous tract in the LLQ. She required blood tx 11/01 for hb 6.5. ID consulted for ABX mangement. ID recommended surgery evaluation for fistula. Interval History: 11/06: No acute events overnight. No CP or SOB. D/W ID, will consult surgery for evaluation of chronic fistula and if TPN needed for healing. 11/05: No acute events overnight. No CP or SOB. Pain contorlled. All questions answered. 11/04: D/W cx results and answered questions. She feel well and denies CP or SOB. 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 ABX per ID. She feels ok today. No complaints. 11/02: She c/o fatigue. She denies CP or SOB. No acute events overnight. D/W nurse and TCC. D/W ID - will need more culture information from outside hospitals - D/W floor staff and attempting to obtain. 11/01: She c/o granulized pain and fatigue. No CP or SOB. No overnight issues. Case and plan discussed with patient and bedside nurse. All questions answered. Adult diet Regular 24HR INTAKE/OUTPUT: No intake or output data in the 24 hours ending 11/06/24 1154 Past Medical History: Medical History[1] LABS: CBC: Recent Labs 11/04/2431711/05/24 0257 11/06/24 0205 WBC 5.3 5.2 4.8 RBC 3.80 4.09 4.22 HGB 8.9* 9.5* 9.8* HCT 28.9* 31.4* 32.4* MCV 76.1* 76.8* 76.8* RDW 19.6* 19.8* 20.1* PLT 342 383 378 BMP: Recent Labs 11/04/2431711/05/24 0257 11/06/24 0205 NA 139 139 139 K 3.5 3.5 3.5 CL 112* 109* 108* CO2 22* 23 25 BUN 3* <3* <3* CREATININE 0.50* 0.47* 0.46* GLUCOSE 71* 97 70* CALCIUM 7.3* 7.4* 7.5* ANIONGAP 5 7 6 LIVER PROFILE: No results for input(s): "AST", "ALT", "BILITOT", "ALKPHOS", "PROT" in the last 72 hours. No lab exists for component: LABALBU PT/INR: No results for input(s): "PROTIME", "INR" in the last 72 hours. CARDIAC ENZYMES: No results for input(s): "TROPONINI" in the last 72 hours. Procalcitonin: No results found for: "PROCAL" COVID-19 PCR: No results for input(s): "COVID19" in the last 72 hours. Objective: Vitals: BP 121/55 (BP Location: Right arm, Patient Position: Lying) Pulse 68 Temp 36.6 ?C (97.9 ?F) (Temporal) Resp 16 Ht 4' 9.01" (1.448 m) Wt 73 lb (33.1 kg) SpO2 92% BMI 15.79 kg/m? Pulse Ox: SpO2 Av.8 % Min: 90 % Max: 95 % Supplemental O2: O2 Flow Rate (L/min): 1 L/min Physical Exam Vitals reviewed. Constitutional: General: She is not in acute distress. Comments: Chronicially ill appearing, thin, pleasant, non-labored breathing Cardiovascular: Rate and Rhythm: Normal rate and regular rhythm. Pulmonary: Effort: Pulmonary effort is normal. Breath sounds: Normal breath sounds. Abdominal: General: Bowel sounds are normal. Palpations: Abdomen is soft. Tenderness: There is no abdominal tenderness. Musculoskeletal: Comments: Toe amputations noted, fistula site ntoed Skin: Comments: Heel wound and toe amputations noted Neurological: General: No focal deficit present. Mental Status: She is alert and oriented to person, place, and time. Medications: Scheduled PRN Scheduled Meds[2] PRN Meds[3] Continuous Continuous Meds[4] Assessment Data: NA (LOW: 2x CAT1 or independent historian MOD: 3x CAT1 or 1x CAT3 EXTENSIVE: 3x CAT1 and 1x CAT3) Acute, acute on chronic, unstable/uncontrolled chronic problems/diagnoses: Severely malnourished K pneumo bacteremia from PICC CLSBI Infected PICC line - removed Possible sacral osteomyelitis Abdominal fistula Partial right foot amputation Sacral pressure injury Right heel pressure injury Left heel pressure injury Left Achilles pressure injury Acute anemia Stable chronic problems affecting care, new non-acute diagnoses: Hyperl (more content not included)... [facility] 11-06-2024 Note Care Management Prog ress Note 11/06/24 0900 Rapid Rounds Attendance Travel Registered Nurse Icu Planned Discharge Disposition SNF (return to [facility] for SNF) Today we still await Administering IV medications;Mergers And Acquisitions Attorney recommendations (comment) Additional Comments: ID recommendations Awaiting response from Dr Quintanilla via [employer] for ID recommendations and plan regarding new PICC placement. CM will continue to follow. Addendum: Per Dr Quintanilla via [email or web address], can treat with PO antibiotic for discharge. Also inquired about General Surgery evaluating for TPN, Dr De La Cruz to place consult. CM will continue to follow. [facility] 11-06-2024 Hospital Discharg e instructions Kirsten Montano RN - 11/06/2024 8:11 AM EDT Images from the original note were not included. Continuity of Care Form Patient Name: Yoko Emanuel : 1955 Admit date: 10/31/2024 Discharge date: 11/09/2024 Code Status Order: DNR-CC Advance Directives: N Admitting Physician: Shey Trujillo MD PCP: No primary care provider on file. Discharging Nurse: Kirsten Montano Discharging Hospital Unit/Room#: [id number]/H-6135 A Discharging Unit Emergency Contact: Extended Emergency Contact Information Primary Emergency Contact: Sean Mccann Mobile Relation: Son Past Surgical History: History reviewed. No pertinent surgical history. Immunization History: There is no immunization history on file for this patient. Active Problems: Medical Problems Problem List * (Principal) PICC line infection, initial encounter Severe malnutrition (CMS/HCC) (HCC) Isolation/Infection: No active isolations No active infections Nurse Assessment: Last Vital Signs: BP 121/55 (BP Location: Right arm, Patient Position: Lying) Pulse 68 Temp 36.6 C (97.9 F) (Temporal) Resp 16 Ht 4' 9.01" (1.448 m) Wt 73 lb (33.1 kg) SpO2 92% BMI 15.79 kg/m Last documented pain score (0-10 scale): Last Weight: Wt Readings from Last 1 Encounters: 10/31/24 73 lb (33.1 kg) Mental Status: MYKEL Patient Mental Status: oriented IV Access: MYKEL IV Access: None Nursing Mobility/ADLs: Walking Total assistance Transfer Total assistance Bathing Total assistance Dressing Minimal assistance Toileting Independent Feeding Independent Polygraph Examiner {FREDERICK ADL:00206::"Independent"} Med Delivery no Wound Care Documentation and Therapy: Wound/Incision 10/31/24 Other (comment) Abdomen Left;Lower (Active) Wound Image 10/31/24 1041 Site Assessment Blanchable erythema;Red 11/05/241999 Cydney-Wound Assessment Excoriated 11/03/24 1245 Drainage Description Brown 11/04/24 1823 Odor Fecal 11/04/24 1823 Drainage Amount Large 11/04/24 1823 Treatments Cleansed;Site care 11/04/24 1823 Primary Dressing ABD 11/05/241999 Dressing Status Clean, dry & intact 11/05/241999 Number of days: 5 Wound/Incision 10/31/24 Pressure Injury Calf Distal;Left;Posterior (Active) Wound Image 10/31/24 1048 Site Assessment Purple;Red 11/05/241999 Cydney-Wound Assessment Intact 11/03/24 1245 Drainage Description Serous 11/04/24 1823 Odor None 11/04/24 1823 Drainage Amount Scant 11/04/24 1823 Treatments Cleansed;Site care 11/04/24 1823 Primary Dressing Adaptic;Rolled gauze (Kerlix) 11/05/241999 Dressing Status Clean, dry & intact 11/05/241999 Number of days: 5 Wound/Incision 10/31/24 Other (comment) Amputation site - Toe Anterior;Right (Active) Wound Image 10/31/24 1054 Site Assessment Red;Purple 11/05/241999 Cydney-Wound Assessment Blanchable erythema 11/03/24 1245 Drainage Description Serous 11/04/24 1823 Odor None 11/04/24 1823 Drainage Amount Scant 11/04/24 1823 Treatments Site care;Cleansed 11/04/24 1823 Primary Dressing Adaptic;Rolled gauze (Kerlix) 11/05/241999 Dressing Status Clean, dry & intact 11/05/241999 Number of days: 5 Wound/Incision 10/31/24 Pressure Injury Sacrum (Active) Wound Image 10/31/24 1111 Site Assessment Weippe 11/05/241999 Cydney-Wound Assessment Blanchable erythema 11/03/24 1245 Drainage Description Serosanguineous 11/04/24 1823 Odor None 11/04/24 1823 Drainage Amount None 11/04/24 1823 Treatments Cleansed;Pharmaceutical agent 11/04/24 1823 Primary Dressing Open to air 11/05/241999 Dressing Status New dressing 11/04/24 182 Number of days: 5 Wound/Incision 11/02/24 Pressure Injury Heel Left (Active) Site Assessment Weippe 11/05/241999 Cydney-Wound Assessment Blanchable erythema 11/03/24 1245 Drainage Description Red 11/03/24 1245 Odor None 11/03/24 1245 Drainage Amount None 11/03/24 1245 Treatments Cleansed 11/03/24 1245 Primary Dressing Mesalt pad;ABD;Rolled gauze (Kerlix) 11/05/241999 Dressing Status New dressing 11/03/24 1245 Number of days: 3 Wound/Incision 11/02/24 Pressure Injury Heel Right (Active) Site Assessment Dry;Intact 11/05/241999 Cydney-Wound Assessment Blanchable erythema 11/03/24 1245 Odor None 11/03/24 1245 Drainage Amount None 11/03/24 1245 Treatments Cleansed 11/03/24 1245 Primary Dressing ABD;Rolled gauze (Kerlix) 11/05/241999 Dressing Status New dressing 11/03/24 1245 Number of days: 3 Elimination: Continence: Bowel: No Bladder: No Urinary Catheter: None Colostomy/Ileostomy/Ileal Conduit: None Date of Last BM: 11/09/2024 No intake or output data in the 24 hours ending 11/06/24 0810 No intake/output data recorded. Safety Concerns: at risk for falls Impairments/Disabilities: none Nutrition Therapy: Current Nutrition Therapy: Oral diet: general Routes of Feeding: oral Liquids: no restrictions Daily Fluid Restriction: no Last Modified Barium Swallow with Video (Video Swallowing Test): not done Treatments at the Time of Hospital Discharge: Respiratory Treatments: NA Oxygen Therapy: is not on home oxygen therapy. Ventilator: No ventilator support Rehab Therapies: physical therapy and occupational therapy Weight Bearing Status/Restrictions: no restriction Other Medical Equipment (for information only, NOT a DME order): none Other Treatments: NA Patient's personal belongings (please select all that are sent with patient): phone, clothing RN SIGNATURE: MANAGEMENT/SOCIAL WORK SECTION Inpatient Status Date: Discharging to Facility/ Agency Name: [facility] Address: [address] [place] [address]., [place] [address] Fax: Dialysis Facility (if applicable) Name: Address: Dialysis Schedule: Phone: Fax: Travel Registered Nurse Icu/Utility Bill Collection Clerk signature: ICIAN SECTION Name: Yoko Emanuel Prognosis: poor Condition at Discharge: stable Rehab Potential (if transferring to Rehab): poor Recommended Labs or Other Treatments After Discharge: Contracted palliative care team to see at SNF, ongoing symptoms and goals of care. Pt deferred surgical planning for abd fistula. Should follow up OP surgery if she would like this managed. Augmentin x 6 more days. Recommend tamale machine feeder consult to optimize enteral nutrition. The individual is being admitted to a nursing facility directly from an [facility] or a unit of a hospital that is not operated by or licensed by [facility] under section 5119.14 or 5160-3-15.1 5 The individual requires the level of services provided by a nursing facility for the condition for which he or she was treated in the hospital and, Physician Certification: I certify the above information and transfer of Yoko Emanuel is necessary for the continuing treatment of the diagnosis listed and that she requires nursing home facility for less than 30 days. Update Admission H&P: No change in H&P PHYSICIAN SIGNATURE: documented in this encounter [facility] 11-06-2024 Note Palliative Care Prog ress Note Chief Complaint: Yoko Emanuel is a 69 y.o. female with chief complaint of wound pain. Palliative Care will follow peripherally, please contact on-call provider for urgent needs Assessment/Plan Goals of care Yoko Emanuel retains capacity for medical decision-making -legal surrogate decision maker is Sean naidu ( ) -goals of care include: 1) obtain medical information prior to decision-making, expresses due to weakness she is doubtful she would survive surgery however is open to other treatments if needed. 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 - mgmt per primary team - 10/31/24: CT A/P report reviewed Wounds with osteomyelitis/bacteremia - wound team on board, their initial consult from today appreciated with pictures - ID following - per primary currently on IV abx - PICC line she had in RUE has been removed - repeat blood cultures 11/02/24: no growth times 72 hours Wound pain/B feet pain - INCREASE gabapentin to 300mg three times per day - continue oxycodone 5mg PO q4h prn, monitor needs--this has been helpful - STOP IV hydromorphone 0.5mg daily PRN prior to dressing changes, given this morning already today - starting TOMORROW: oxycodone 10mg to be given 60 minutes prior to dressing change to ensure without need for IV hydromorphone, aware cannot go back to facility on IV pain medications Anemia - hgb 11/06/24 9.8 Protein calorie malnutrition - 10/31/24: albumin low at 1.7 - her pain has limited her wanting to eat--since better controlled her appetite is improved - eating about half meals - at some point had been on TPN, her appetite is improved Risk for constipation - last BM 11/05/24 - denies constipation - due to prn opiates and immobility - has prn polyethylene glycol Debility - PT/OT when able - came from [facility] prior to [facility] hospitalization Palliative Care Encounter -Code Status: DNR-CC - Ongoing counseling of patient and family regarding diagnoses of wound, Determining prognosis in serious illness of wounds - will continue treatment including oxycodone and gabapentin - assessed patient or surrogate's understanding of medical condition, addressed goals of care pertinent to the condition and communicated this to the medical team - placed on MYKEL and external dc order for contracted palliative care team to see her at [facility] Discharge planning: Not ready for discharge due to ongoing medical work-up/critical illness Patient meets criteria for general inpatient hospice care: No Palliative Care IDT members involved: None Discussed the plan of care with the other interdisciplinary team (IDT) members of the Palliative Care and Hospice teams and Patient and Floor Nurse. Subjective: Subjective/Events Since last seen: repeat blood cultures clear thus far only day 3. Awake in bed in NAD, in good mood and spirits, very pleased with overall care. Pain controlled even with dressing changes, no CP, abdominal pain, breathing at times labored but currently easy, no nausea, vomiting, BM 11/05/24, eating about half of meals Yoko Emanuel is a 69 y.o. female transferred to [facility] from [facility] for CT demonstrating abdominal fistula. This is her 3rd hospitalization in few months, had been at [facility] for partial R foot amputation, positive osteomyelitis with IV abx had completed abx at [facility] ([facility], [place]), developed PNA and treated for this, at facility with positive blood cultures and elevated WBC to [place] [facility]. CT A/P revealing abdominal fistula prompting transfer. Since at [facility], repeat CT A/P completed, pending ID and wound consults. Adamant she would not want surgical interventions prompting palliative care consult for goals of care Palliative Care Assessments: Goals of care: Continue Current Management Advanced Directives: DNR Functional Assessment: PPS 60% amb reduced; can't do normal housework/sig disease; occ assistance; normal or reduced intake; full LOC or confusion Prognosis: uncertain at this time Spiritual Assessment: No spiritual distress identified Bereavement and Grief: Grief Issues Not Identified PDMP/OARRS Reviewed: Yes-no reportable medications Social history: Marital status: Children: 2 adult child(alyson)--sons Living status: assisted Work history: retired [place] status: No [employer] lillian: Unknown ROS: See palliative care ROS/ESAS below; All other systems were reviewed and are negative. [place] Symptom Assessment Score [place] Score Pain Score (if non-verbal, add .FLACC below) 3 Tiredness Score 0 Nausea Score 0 Dep (more content not included)... [facility] 11-05-2024 Note Hospitalist Progress Note 11/05/2024 Subjective: Admit Date: 10/31/2024 PCP: No primary care provider on file. Room#: [id number] A BRIEF HOSPITAL COURSE: Yoko is a 69 y.o. female with past medical history below who presents with chief complaint listed above. Patient was sent from [facility] to [facility] for concerning findings on CT abdominal scan. Patient initially was sent to nursing home facility from [facility] for a partial amputation of her right foot. She had osteomyelitis. Patient was discharged on Zosyn and had a right PICC line placed. While in nursing home facility she completed her course of Zosyn for foot wound. That she then contracted pneumonia or started on IV Rocephin. That ended last week. Patient did have a elevated white count and positive blood cultures so they sent her to the hospital. Patient was found to have 2 abdominal abscesses and possible osteomyelitis. Patient currently has a sacral wound, left lower quadrant fistula draining purulent drainage, two leftheel wounds and healing right partial foot amputation. She was started on antibiotics and admitted. CT A/P showed no abscess, mild bowel wall thickening and inflammation in the splenic flecture and fistulous tract in the LLQ. She required blood tx 11/01 for hb 6.5. ID consulted for ABX mangement. Interval History: 11/05: No acute events overnight. No CP or SOB. Pain contorlled. All questions answered. 11/04: D/W cx results and answered questions. She feel well and denies CP or SOB. 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 ABX per ID. She feels ok today. No complaints. 11/02: She c/o fatigue. She denies CP or SOB. No acute events overnight. D/W nurse and TCC. D/W ID - will need more culture information from outside hospitals - D/W floor staff and attempting to obtain. 11/01: She c/o granulized pain and fatigue. No CP or SOB. No overnight issues. Case and plan discussed with patient and bedside nurse. All questions answered. Adult diet Regular 24HR INTAKE/OUTPUT: No intake or output data in the 24 hours ending 11/05/24 1323 Past Medical History: Medical History[1] LABS: CBC: Recent Labs 11/04/248 11/05/24 0257 WBC 5.3 5.2 RBC 3.80 4.09 HGB 8.9* 9.5* HCT 28.9* 31.4* MCV 76.1* 76.8* RDW 19.6* 19.8* PLT 342 383 BMP: Recent Labs 11/04/248 11/05/24 0257 NA 139 139 K 3.5 3.5 CL 112* 109* CO2 22* 23 BUN 3* <3* CREATININE 0.50* 0.47* GLUCOSE 71* 97 CALCIUM 7.3* 7.4* ANIONGAP 5 7 LIVER PROFILE: No results for input(s): "AST", "ALT", "BILITOT", "ALKPHOS", "PROT" in the last 72 hours. No lab exists for component: LABALBU PT/INR: No results for input(s): "PROTIME", "INR" in the last 72 hours. CARDIAC ENZYMES: No results for input(s): "TROPONINI" in the last 72 hours. Procalcitonin: No results found for: "PROCAL" COVID-19 PCR: No results for input(s): "COVID19" in the last 72 hours. Objective: Vitals: BP 114/57 (BP Location: Right arm, Patient Position: Lying) Pulse 75 Temp 36.4 ?C (97.6 ?F) (Temporal) Resp 16 Ht 4' 9.01" (1.448 m) Wt 73 lb (33.1 kg) SpO2 92% BMI 15.79 kg/m? Pulse Ox: SpO2 Av.8 % Min: 87 % Max: 92 % Supplemental O2: O2 Flow Rate (L/min): 1 L/min Physical Exam Vitals reviewed. Constitutional: General: She is not in acute distress. Comments: Chronicially ill appearing, thin, pleasant, non-labored breathing Cardiovascular: Rate and Rhythm: Normal rate and regular rhythm. Pulmonary: Effort: Pulmonary effort is normal. Breath sounds: Normal breath sounds. Abdominal: General: Bowel sounds are normal. Palpations: Abdomen is soft. Tenderness: There is no abdominal tenderness. Musculoskeletal: Comments: Toe amputations noted, fistula site ntoed Skin: Comments: Heel wound and toe amputations noted Neurological: General: No focal deficit present. Mental Status: She is alert and oriented to person, place, and time. 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 Sacral pressure injury Right heel pressure injury Left heel pressure injury Left Achilles pressure injury Acute anemia Stable chronic problems affecting care, new non-acute diagnoses: Hyperlipidemia Neuropathy Diabetes mellitus type 2 Plan As a result of the above findings & factors, the following mgmt was pursued: - ID consult - managing ABX - vancomycin 10/31 to 11/03 - zosyn 10/31 - home medications - lópez cultures - wound Cx ntoed - obtain outside hospital c (more content not included)... [facility] 11-04-2024 Note Hospitalist Progress Note 11/04/2024 Subjective: Admit Date: 10/31/2024 PCP: No primary care provider on file. Room#: [id number] A BRIEF HOSPITAL COURSE: Yoko is a 69 y.o. female with past medical history below who presents with chief complaint listed above. Patient was sent from [facility] to [facility] for concerning findings on CT abdominal scan. Patient initially was sent to nursing home facility from [facility] for a partial amputation of her right foot. She had osteomyelitis. Patient was discharged on Zosyn and had a right PICC line placed. While in nursing home facility she completed her course of Zosyn for foot wound. That she then contracted pneumonia or started on IV Rocephin. That ended last week. Patient did have a elevated white count and positive blood cultures so they sent her to the hospital. Patient was found to have 2 abdominal abscesses and possible osteomyelitis. Patient currently has a sacral wound, left lower quadrant fistula draining purulent drainage, two leftheel wounds and healing right partial foot amputation. She was started on antibiotics and admitted. CT A/P showed no abscess, mild bowel wall thickening and inflammation in the splenic flecture and fistulous tract in the LLQ. She required blood tx 11/01 for hb 6.5. ID consulted for ABX mangement. Interval History: 11/04: D/W cx results and answered questions. She feel well and denies CP or SOB. 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 ABX per ID. She feels ok today. No complaints. 11/02: She c/o fatigue. She denies CP or SOB. No acute events overnight. D/W nurse and TCC. D/W ID - will need more culture information from outside hospitals - D/W floor staff and attempting to obtain. 11/01: She c/o granulized pain and fatigue. No CP or SOB. No overnight issues. Case and plan discussed with patient and bedside nurse. All questions answered. Adult diet Regular 24HR INTAKE/OUTPUT: No intake or output data in the 24 hours ending 11/04/24 1351 Past Medical History: Medical History[1] LABS: CBC: Recent Labs 11/02/2430911/04/24 0318 WBC 6.6 5.3 RBC 3.79* 3.80 HGB 8.9* 8.9* HCT 28.7* 28.9* MCV 75.7* 76.1* RDW 19.3* 19.6* PLT 309 342 BMP: Recent Labs 11/02/24 0310 11/04/24 0318 NA 137 139 K 4.0 3.5 CL 109* 112* CO2 19* 22* BUN 5* 3* CREATININE 0.50* 0.50* GLUCOSE 74* 71* CALCIUM 7.5* 7.3* ANIONGAP 9 5 LIVER PROFILE: No results for input(s): "AST", "ALT", "BILITOT", "ALKPHOS", "PROT" in the last 72 hours. No lab exists for component: LABALBU PT/INR: No results for input(s): "PROTIME", "INR" in the last 72 hours. CARDIAC ENZYMES: No results for input(s): "TROPONINI" in the last 72 hours. Procalcitonin: No results found for: "PROCAL" COVID-19 PCR: No results for input(s): "COVID19" in the last 72 hours. Objective: Vitals: BP (!) 103/40 (BP Location: Left arm, Patient Position: Lying) Pulse 86 Temp 36.4 ?C (97.5 ?F) (Temporal) Resp 16 Ht 4' 9.01" (1.448 m) Wt 73 lb (33.1 kg) SpO2 91% BMI 15.79 kg/m? Pulse Ox: SpO2 Av % Min: 91 % Max: 93 % Supplemental O2: Physical Exam Vitals reviewed. Constitutional: General: She is not in acute distress. Comments: Chronicially ill appearing, thin, pleasant, non-labored breathing Cardiovascular: Rate and Rhythm: Normal rate and regular rhythm. Pulmonary: Effort: Pulmonary effort is normal. Breath sounds: Normal breath sounds. Abdominal: General: Bowel sounds are normal. Palpations: Abdomen is soft. Tenderness: There is no abdominal tenderness. Musculoskeletal: Comments: Toe amputations noted, fistula site ntoed Skin: Comments: Heel wound and toe amputations noted Neurological: General: No focal deficit present. Mental Status: She is alert and oriented to person, place, and time. 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 Sacral pressure injury Right heel pressure injury Left heel pressure injury Left Achilles pressure injury Acute anemia Stable chronic problems affecting care, new non-acute diagnoses: Hyperlipidemia Neuropathy Diabetes mellitus type 2 Plan As a result of the above findings & factors, the following mgmt was pursued: - ID consult - managing ABX - vancomycin 10/31 to 11/03 - zosyn 10/31 - home medications - lópez cultures - obtain outside hospital culture records - PICC removed - IVF - follow lower BP - consult pall care - consult wound care - fecal occult - am labs, re (more content not included)... [facility] 11-03-2024 Note Hospitalist Progress Note 11/03/2024 Subjective: Admit Date: 10/31/2024 PCP: No primary care provider on file. Room#: [id number] A BRIEF HOSPITAL COURSE: Yoko is a 69 y.o. female with past medical history below who presents with chief complaint listed above. Patient was sent from [facility] to [facility] for concerning findings on CT abdominal scan. Patient initially was sent to nursing home facility from [facility] for a partial amputation of her right foot. She had osteomyelitis. Patient was discharged on Zosyn and had a right PICC line placed. While in nursing home facility she completed her course of Zosyn for foot wound. That she then contracted pneumonia or started on IV Rocephin. That ended last week. Patient did have a elevated white count and positive blood cultures so they sent her to the hospital. Patient was found to have 2 abdominal abscesses and possible osteomyelitis. Patient currently has a sacral wound, left lower quadrant fistula draining purulent drainage, two leftheel wounds and healing right partial foot amputation. She was started on antibiotics and admitted. CT A/P showed no abscess, mild bowel wall thickening and inflammation in the splenic flecture and fistulous tract in the LLQ. She required blood tx 11/01 for hb 6.5. ID consulted for ABX mangement. Interval History: 11/03: paper work says DNR - C C - defer to pall care skyler is following. ABX per ID. She feels ok today. No complaints. 11/02: She c/o fatigue. She denies CP or SOB. No acute events overnight. D/W nurse and TCC. D/W ID - will need more culture information from outside hospitals - D/W floor staff and attempting to obtain. 11/01: She c/o granulized pain and fatigue. No CP or SOB. No overnight issues. Case and plan discussed with patient and bedside nurse. All questions answered. Adult diet Regular 24HR INTAKE/OUTPUT: Intake/Output Summary (Last 24 hours) at 11/03/2024 1344 Last data filed at 11/03/2024 0350 Gross per 24 hour Intake 200 ml Output 300 ml Net -100 ml Past Medical History: Medical History[1] LABS: CBC: Recent Labs 10/31/24 1425 11/01/24 0037 11/01/24 0901 11/02/24 0310 WBC 8.4 6.2 -- 6.6 RBC 3.14* 2.94* -- 3.79* HGB 7.0* 6.5* 9.3* 8.9* HCT 22.5* 21.0* 29.5* 28.7* MCV 71.7* 71.4* -- 75.7* RDW 17.8* 17.8* -- 19.3* PLT 273 271 -- 309 BMP: Recent Labs 10/31/24 1425 11/01/24 0037 11/02/24 0310 NA 135* 135* 137 K 4.0 3.9 4.0 CL 105 108* 109* CO2 21* 21* 19* BUN 9 8* 5* CREATININE 0.46* 0.49* 0.50* GLUCOSE 112 90 74* CALCIUM 7.6* 7.7* 7.5* ANIONGAP 9 6 9 LIVER PROFILE: Recent Labs 10/31/24 1425 AST 52* ALT 61* BILITOT 0.4 ALKPHOS 285* PROT 5.4* PT/INR: No results for input(s): "PROTIME", "INR" in the last 72 hours. CARDIAC ENZYMES: No results for input(s): "TROPONINI" in the last 72 hours. Procalcitonin: No results found for: "PROCAL" COVID-19 PCR: No results for input(s): "COVID19" in the last 72 hours. Objective: Vitals: BP (!) 113/45 (BP Location: Left arm, Patient Position: Lying) Pulse 81 Temp 36.4 ?C (97.5 ?F) (Temporal) Resp 16 Ht 4' 9.01" (1.448 m) Wt 73 lb (33.1 kg) SpO2 92% BMI 15.79 kg/m? Pulse Ox: SpO2 Av.3 % Min: 92 % Max: 99 % Supplemental O2: Physical Exam Vitals reviewed. Constitutional: General: She is not in acute distress. Comments: Chronicially ill appearing, thin, pleasant, non-labored breathing Cardiovascular: Rate and Rhythm: Normal rate and regular rhythm. Pulmonary: Effort: Pulmonary effort is normal. Breath sounds: Normal breath sounds. Abdominal: General: Bowel sounds are normal. Palpations: Abdomen is soft. Tenderness: There is no abdominal tenderness. Musculoskeletal: Comments: Toe amputations noted, fistula site ntoed Skin: Comments: Heel wound and toe amputations noted Neurological: General: No focal deficit present. Mental Status: She is alert and oriented to person, place, and time. 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 [facility] 11-03-2024 Note Care Management Prog ress Note 11/03/24 0830 Rapid Rounds Attendance Travel Registered Nurse Icu Planned Discharge Disposition SNF (return to [facility] for SNF) Today we still await Administering IV medications;M[employer] Acquisitions Attorney recommendations (comment);Test results (comment) Additional Comments: ID recommendations, cultures PICC line infection (removed) and open abdominal fistula. DCP return to [facility] for SNF, facility is able to provide care per communication via [facility]. CM will continue to follow. [facility] 11-03-2024 Note Palliative Care Prog ress Note Chief Complaint: Yoko Emanuel is a 69 y.o. female with chief complaint of wound pain. Palliative Care provider will follow-up on week 11/06. Assessment/Plan Goals of care Yoko Emanuel retains capacity for medical decision-making -legal surrogate decision maker is Sean naidu ( ) -goals of care include: 1) obtain medical information prior to decision-making, expresses due to weakness she is doubtful she would survive surgery however is open to other treatments if needed. 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 - mgmt per primary team - 10/31/24: CT A/P report reviewed Wounds with osteomyelitis/bacteremia - wound team on board, their initial consult from today appreciated with pictures - ID consulted - per primary currently on IV abx - PICC line she had in RUE has been removed - 10/31/24 blood cultures positive, repeat from 11/02/24 pending Wound pain/B feet pain - continue gabapentin to 300mg twice per day - continue oxycodone 5mg PO q4h prn, monitor needs--this has been helpful - ADD IV hydromorphone 0.5mg daily PRN prior to dressing changes only, she is rather fearful of daily dressing changes due to pain Anemia - hgb 11/02/24 8.9 Protein calorie malnutrition - 10/31/24: albumin low at 1.7 - her pain has limited her wanting to eat - at sone point had been on TPN, her appetite is improved Risk for constipation - last BM 11/02/24 - denies constipation - due to prn opiates and immobility - has prn polyethylene glycol Debility - PT/OT when able - came from SNF prior to [facility] Palliative Care Encounter -Code Status: DNR-CC - Ongoing counseling of patient and family regarding diagnoses of wound, Determining prognosis in serious illness of wounds - will continue treatment including oxycodone and gabapentin - assessed patient or surrogate's understanding of medical condition, addressed goals of care pertinent to the condition and communicated this to the medical team Discharge planning: Not ready for discharge due to ongoing medical work-up/critical illness Patient meets criteria for general inpatient hospice care: No Palliative Care IDT members involved: None Discussed the plan of care with the other interdisciplinary team (IDT) members of the Palliative Care and Hospice teams and Patient and Floor Nurse. Subjective: Subjective/Events Since last seen: pending repeat blood cultures, her pain is fairly well controlled with adjustments in medications. No CP, abdominal pain, breathing easy, no nausea, vomiting, appetite improving slowly, BM yesterday. Yoko Emanuel is a 69 y.o. female transferred to [facility] from [facility] for CT demonstrating abdominal fistula. This is her 3rd hospitalization in few months, had been at [facility] for partial R foot amputation, positive osteomyelitis with IV abx had completed abx at [facility] ([facility], [place]), developed PNA and treated for this, at facility with positive blood cultures and elevated WBC to [place] [facility]. CT A/P revealing abdominal fistula prompting transfer. Since at [facility], repeat CT A/P completed, pending ID and wound consults. Adamant she would not want surgical interventions prompting palliative care consult for goals of care Palliative Care Assessments: Goals of care: Continue Current Management Advanced Directives: DNR Functional Assessment: PPS 60% amb reduced; can't do normal housework/sig disease; occ assistance; normal or reduced intake; full LOC or confusion Prognosis: uncertain at this time Spiritual Assessment: No spiritual distress identified Bereavement and Grief: Grief Issues Not Identified PDMP/OARRS Reviewed: Yes-no reportable medications Social history: Marital status: Children: 2 adult child(alyson)--sons Living status: assisted Work history: retired status: No Mormon lillian: Unknown ROS: See palliative care ROS/ESAS below; All other systems were reviewed and are negative. [place] Symptom Assessment Score [place] Score Pain Score (if non-verbal, add .FLACC below) 2 Tiredness Score 0 Nausea Score 0 Depression Score 0 Anxiety Score 5 Drowsiness Score 0 Anorexia Score (0= eating well, 10= not eating) 7 Wellbeing Score (10= worst sense of well-being) 5 Constipation 0 Dyspnea Score (0= no shortness of breath) 0 Family Meeting: Participants: patient Family meeting was held to discuss:Symptom Management Objective: BP (!) 113/45 (BP Location: Left arm, Patient Position: Lying) Pulse 81 Temp 36.4 ?C (97.5 ?F) (Temporal) Resp 16 Ht 4' 9.01" (1.448 m) (more content not included)... [facility] 11-03-2024 Note Pharmacy to Dose Van comycin - Progress Note Lab Results Component Value Date CREATININE 0.50 (L) 11/02/2024 BUN 5 (L) 11/02/2024 WBC 6.6 11/02/2024 VANCORANDOM 11.8 11/02/2024 VANCOTROUGH 17.3 11/01/2024 Doses, serum creatinine, and vancomycin levels interfaced automatically to [employer] and data has been analyzed and interpreted. Infectious Diagnosis: SSTI Est CrCl: 55.5 mL/min (Cockcroft-Gault) Assessment: Current regimen vancomycin 750 mg every 12 hours (22.7 mg/kg) Predicted AUC = 585 mg/L*hr (goal 400-600 mg/L*hr) PAUC = 98% (probability that AUC is >400 mg/L*hr) Pconc = 18% (probability that Ctrough is above 20 mcg/mL (toxicity)) Plan: Is the current dose therapeutic? [x] Yes - obtain next level on 11/04 unless predicted AUC is sub-/supra-therapeutic or change in serum creatinine. [] No - change current regimen to vancomycin mg every hours ( mg/kg) for predicted AUC mg/L*hr, PAUC = % , and Pconc* = %. Obtain next level on Trend serum creatinine. Trend AUC using Bayesian Modeling. Orders placed. DATE: 11/03/24 TIME: 8:42 AM [facility] Clinical Pharmacist Available via Secure Chat [facility] 11-03-2024 Consult note Associated Order (s): IP CONSULT TO SOCIAL WORK SW consulted 10/31/24 from NICHELLE Ortiz, "Patient is a DNR CC with multiple wounds and issues". EMR reviewed. Patient from [facility] and plan is to return. DESIGN CHIEF to follow along on treatment team and assist with transitions of care as needed. Associated Order(s): IP CONSULT TO DIETITIAN; IP CONSULT TO DIETITIAN Nutrition Assessment Type and Reason for Visit: Initial, Positive Nutrition Screen, Consult (Gerhard nutritional subscore is less than equal to 2, poor po intake/appetite 5 or more days, wound, + 3 MST) Nutrition Recommendations/Plan: Patient is DNR:CC. Palliative care is following: Continue with regular diet. Consider easy to chew diet however pt mainly prefers soft foods. Per MNT protocol will send vanilla Ensure Plus HP at lunch and vanilla magic cup at dinner. PICC line removed due to infection. Per nursing facility paperwork, it appears patient was receiving TPN. She has an open abdominal fistula. Will monitor goals of care and appropriateness to resume TPN. Monitor weight, labs, I/O, skin assessment, BM, and overall nutritional status. RD will follow up. Malnutrition Assessment: Malnutrition Status: Severe malnutrition Context: Chronic Illness Findings of the 6 clinical characteristics of malnutrition: Energy Intake: No significant decrease in energy intake (Per nursing facility paperwork, patient was on TPN and mechanical soft, GI soft diet. Patient reports poor po intake over past couple of weeks. 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 female with past medical history hyperlipidemia, neuropathy, DM2, partial right foot amputation. Patient was sent from [facility] to [facility] for concerning findings on CT abdominal scan. Patient initially was sent to nursing home facility from [facility] for a partial amputation of her right foot. She had osteomyelitis. Patient was discharged on Zosyn and had a right PICC line placed. While in nursing home facility she completed her course of Zosyn for foot wound. That she then contracted pneumonia or started on IV Rocephin. That ended last week. Patient did have a elevated white count and positive blood cultures so they sent her to the hospital. Patient was found to have 2 abdominal abscesses and possible osteomyelitis. Patient currently has a sacral wound, left lower quadrant fistula draining purulent drainage, two left heel wounds and healing right partial foot amputation. She was started on antibiotics and admitted. CT A/P showed no abscess, mild bowel wall thickening and inflammation in the splenic flecture and fistulous tract in the LLQ. She required blood tx 11/01 for hb 6.5. Palliative care is following- current code status: DNR:CCC. ID and wound care consulted. PICC line removed. RD spoke with patient this afternoon. She is hard of hearing. Appetite and po intake have been poor for the past couple of weeks. Patient reports only taking 4-5 bites as nothing tastes good. She is edentulous. She did not like that nursing facility cut her food into small pieces. She does not eat corn or beans as goes thru her. She prefers things like applesauce, ice cream, jello, soda, spaghetti, mac and cheese, chicken noodle soup. She drinks small cup of Boost once to twice per day. Does not like chocolate as goes right thru her. 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 She mentions receiving an expensive yellowish clear vitamin at facility. Per review of SNF paperwork, patient was on TPN as well as oral diet (mechanical soft, GI soft, and liberal consistent CHO). She reports her weight was 73# x 3 days. Her weight was 110#-120# x 8-9 months ago and involuntarily lost weight. Estimated Daily Nutrient Needs: Energy Requirements Based On: Kcal/kg Weight Used for Energy Requirements: Admission Weight for Energy Calculation (kg): 33.1 kg Total Energy Requirements (kcals/day): 3960-4797 kcals per day (32-38) Weight Used for Protein Requirements: Admission Weight in Kg Used for Protein Requirements: 33.1 kg Estimated Total Protein (g/day): 40-50 gm per day (1.2-1.5) Estimated Daily Total Fluid (ml/day): Per MD Nutrition Related Findings: Gerhard = 14, no edema, I/O: +240 (since admit), room service selective, CHER-AE HEIGHTS, oriented/disoriented Wound Type: Wound Consult Pending, Multiple (Per woud care: LLQ abdomen fistula - MASD d/t fecal incontinence; Rt foot NHSW (delayed closure); Rt heel unstageable pressure injury (POA); Lt calf venous ulcer (fat); Lt heel stage 3 pressure injury (POA); Sacral unstageable pressure injury (POA):) BMP: Recent Labs 10/31/24 1425 11/01/24 0037 NA 135* 135* K 4.0 3.9 CL 105 108* CO2 21* 21* BUN 9 8* CREATININE 0.46* 0.49* GLUCOSE 112 90 CALCIUM 7.6* 7.7* HEPATIC: Recent Labs 10/31/24 1425 AST 52* ALT 61* BILITOT 0.4 ALKPHOS 285* Lab Results Component Value Date HGBA1C 6.9 (H) 10/31/2024 Medications: Scheduled Meds[1] Continuous Meds[2] PRN Meds[3] Current Nutrition Therapies: Adult diet Regular Current Oral Intake Average Meal Intake: 1-25% Average Supplements Intake: None Ordered Anthropometric Measures: Height: 144.8 cm (4' 9.01") Admission Body Weight: 33.1 kg (73 lb) (stated on 10/31/24) Usual Body Weight: (Epic weight history is limited; per patient- 110-120# x 8-9 months ago) [place] Body Weight (lbs) (Calculated): 94 lbs [place] Body Weight (Kg) (Calculated): 43 kg Weight Adjustment For: No Adjustment BMI Categories: Underweight (BMI less than 22) age over 65 Nutrition Diagnosis: Severe malnutrition, In context of chronic illness related to increase demand for energy/nutrients, early satiety (abdominal fistula, multiple wounds, multiple hospitalizations) as evidenced by weight loss greater than or equal to 20% in 1 year, severe muscle loss, severe loss of subcutaneous fat Increased nutrient needs related to increase demand for energy/nutrients as evidenced by wounds, BMI, weight loss Nutrition Interventions: Nutrition Education/Counseling: No recommendation at this time Coordination of Nutrition Care: Continue to monitor while inpatient Goals: Goals: PO intake 50% or greater, prior to discharge Nutrition Monitoring and Evaluation: Behavioral-Environmental Outcomes: None Identified Food/Nutrient Intake Outcomes: Food and Nutrient Intake, Supplement Intake Physical Signs/Symptoms Outcomes: Biochemical Data, Chewing or Swallowing, GI Status, Fluid Status or Edema, Meal Time Behavior, Nutrition Focused Physical Findings, Skin, Weight Discharge Planning: Too soon to determine Lina Arteaga RD Contact: *[phone] [1] aspirin, 81 mg, Oral, Daily atorvastatin, 80 mg, Oral, Nightly citalopram, 10 mg, Oral, Daily enoxaparin, 30 mg, SubCUTAneous, Daily ferrous sulfate, 325 mg, Oral, Daily with breakfast gabapentin, 300 mg, Oral, BID insulin lispro, 0-6 Units, SubCUTAneous, TID WC And insulin lispro, 0-6 Units, SubCUTAneous, Nightly mirtazapine, 30 mg, Oral, Nightly piperacillin-tazobactam, 4,500 mg, IntraVENous, q6h sodium chloride 0.9%, 5-40 mL, IntraVENous, q12h stomahesive in petrolatum, , Topical, q8h vancomycin, 15 mg/kg, IntraVENous, q12h [2] sodium chloride, 100 mL/hr, Last Rate: 100 mL/hr (11/01/24 1216) [3] PRN medications: dextrose, dextrose, glucagon (rDNA), glucose, naloxone, oxyCODONE, polyethylene glycol (PEG) 3350, prochlorperazine, sodium chloride, sodium chloride, sodium chloride 0.9%, stomahesive in petrolatum Associated Order(s): IP CONSULT TO PALLIATIVE CARE Images from the original note were not included. Palliative Care Initial Consult Chief Complaint: Yoko Emanuel is a 69 y.o. female with chief complaint of wound pain. Palliative Care is actively following. Assessment/Plan Goals of care Yoko Emanuel retains capacity for medical decision-making -legal surrogate decision maker is sonSean ( ) -goals of care include: 1) obtain medical information prior to decision-making, expresses due to weakness she is doubtful she would survive surgery however is open to other treatments if needed. 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 - 10/31/24: CT A/P report reviewed Wounds with osteomyelitis/bacteremia - wound team on board, their initial consult from today appreciated with pictures - ID consulted - per primary currently on IV abx - PICC line she had in RUE has been removed - 10/31/24 blood cultures positive Wound pain/B feet pain - will INCREASE gabapentin to 300mg twice per day, upon review from [facility] looks like was 300mg three times per day - stop percocet - add oxycodone 5mg PO q4h prn, monitor needs Anemia - hgb today 6.5, received blood Protein calorie malnutrition - 10/31/24: albumin low at 1.7 - her pain has limited her wanting to eat, pain overall improved since being here Risk for constipation - last BM yesterday - denies constipation - due to prn opiates and immobility - has prn polyethylene glycol Debility - PT/OT when able - came from SNF prior to hortencia hospitalization Palliative Care Encounter -Code Status: DNR-CC - Ongoing counseling of patient and family regarding diagnoses of wound, Determining prognosis in serious illness of wounds - will continue treatment including oxycodone and gabapentin - assessed patient or surrogate's understanding of medical condition, addressed goals of care pertinent to the condition and communicated this to the medical team Discharge planning: Not ready for discharge due to ongoing medical work-up/critical illness Patient meets criteria for general inpatient hospice care: No Palliative Care IDT members involved: None--refuses SCC, aware is available Discussed the plan of care with the other interdisciplinary team (IDT) members of the Palliative Care and Hospice teams and Patient, Primary Attending, and Floor Nurse. Subjective: Subjective/Events Yoko Emanuel is a 69 y.o. female transferred to [facility] from [facility] for CT demonstrating abdominal fistula. This is her 3rd hospitalization in few months, had been at [facility] for partial R foot amputation, positive osteomyelitis with IV abx had completed abx at [facility] ([facility], [place]), developed PNA and treated for this, at facility with positive blood cultures and elevated WBC to [place] [facility]. CT A/P revealing abdominal fistula prompting transfer. Since at [facility], repeat CT A/P completed, pending ID and wound consults. Adamant she would not want surgical interventions prompting palliative care consult for goals of care Patient VERY CHER-AE HEIGHTS! While at assisted hospice had been consulted but she is not ready for that yet. Introduced palliative care services. Admits to B feet pain, no CP, abdominal pain, breathing easy no nausea, vomiting, appetite fair last BM yesterday Pain Assessment Location: B feet Description: pulling Frequency:Daily Duration: month(s) Alleviating Factors: pain medication Exacerbating Factors: unable to associate with any factor Effect:Change in Function and Interference with Activities Palliative Care Assessments: Goals of care: Continue Current Management Advanced Directives: DNR Functional Assessment: PPS 60% amb reduced; can't do normal housework/sig disease; occ assistance; normal or reduced intake; full LOC or confusion Prognosis: uncertain at this time Spiritual Assessment: No spiritual distress identified Bereavement and Grief: Grief Issues Not Identified PDMP/OARRS Reviewed: Yes-no reportable medications Social history: Marital status: Children: 2 adult child(alyson)--sons Living status: assisted Work history: retired status: No Mormon lillian: Unknown ROS: See palliative care ROS/ESAS below; All other systems were reviewed and are negative. [place] Symptom Assessment Score [place] Score Pain Score (if non-verbal, add .FLACC below) 3 Tiredness Score 0 Nausea Score 0 Depression Score 0 Anxiety Score 0 Drowsiness Score 0 Anorexia Score (0= eating well, 10= not eating) 5 Wellbeing Score (10= worst sense of well-being) 5 Constipation 1 Dyspnea Score (0= no shortness of breath) 0 Family Meeting: Participants: patient Family meeting was held to discuss:Symptom Management Medical History[1] Surgical History[2] Family History[3] Unable to obtain family history due to youngest son recently dx with MS Allergies[4] Objective: BP (!) 98/36 Pulse 81 Temp 36.6 C (97.8 F) (Temporal) Resp 16 Ht 4' 9.01" (1.448 m) Wt 73 lb (33.1 kg) SpO2 94% BMI 15.79 kg/m Physical Exam Vitals and nursing note reviewed. HENT: Head: Normocephalic and atraumatic. Nose: Nose normal. Mouth/Throat: Mouth: Mucous membranes are moist. Eyes: General: Right eye: No discharge. Left eye: No discharge. Pupils: Pupils are equal, round, and reactive to light. Cardiovascular: Rate and Rhythm: Normal rate and regular rhythm. Pulses: Normal pulses. Heart sounds: Normal heart sounds. No murmur heard. Comments: No edema B post tib/dorsalis pedis palpable Pulmonary: Effort: Pulmonary effort is normal. Breath sounds: Normal breath sounds. Abdominal: General: Bowel sounds are normal. There is no distension. Palpations: Abdomen is soft. There is no mass. Comments: Abdominal fistula Genitourinary: Comments: Continent and incontinent Musculoskeletal: General: Deformity (R partial foot amputation) present. Cervical back: Normal range of motion and neck supple. Right lower leg: No edema. Left lower leg: No edema. Skin: General: Skin is warm and dry. Comments: Fragile Wound care involved, may need specialty mattress Neurological: General: No focal deficit present. Mental Status: She is alert and oriented to person, place, and time. Psychiatric: Mood and Affect: Mood normal. Behavior: Behavior normal. Behavior is cooperative. Comments: No agitation Medication information: 24-hour PRN meds received: percocet 5/325mg times 4 Results/Verification of Data Review Objective data reviewed (must include dates reviewed for labs, imaging reports and other specialty notes): (CBC, BMP) reviewed 11/01/24 As above Data in Support of Terminal Illness: Is patient hospice appropriate? N/A Transition Note Initiated: yes Venus Lan APRN - KARLIE [1] History reviewed. No pertinent past medical history. [2] History reviewed. No pertinent surgical history. [3] No family history on file. [4] No Known Allergies Cosigned by Yeni Hyman MD at 11/03/2024 8:04 AM EDT Associated Order(s): INPATIENT CONSULT TO WOUND CARE PROVIDERS Images from the original note were not included. [facility] Wound Care CONSULT Note Yoko Emanuel AGE: 69 y.o. GENDER: female : 1955 Subjective: HISTORY of PRESENT ILLNESS HPI Yoko Emanuel is a 69 y.o. female who presents for a wound consult. HPI: 69 y.o. female with past medical history below who presents with abdominal abscess. Patient was sent from [facility] to [facility] for concerning findings on CT abdominal scan. Patient initially was sent to nursing home facility from [facility] for a partial amputation of her right foot. She had osteomyelitis. Patient was discharged on Zosyn and had a right PICC line placed. While in nursing home facility she completed her course of Zosyn for foot wound. That she then contracted pneumonia or started on IV Rocephin. That ended last week. Patient did have a elevated white count and positive blood cultures so they sent her to the hospital. Patient was found to have 2 abdominal abscesses and possible osteomyelitis. Patient currently has a sacral wound, left lower quadrant fistula draining purulent drainage, two left heel wounds and healing right partial foot amputation. Wound Care consulted for left heel, right foot, sacral ulcer and abdominal fistula. Patient is resting in bed laying on right side. Patient adamantly refused wound care assessment of left calf and right foot. Topical dressing applied to abdomen as patient refused ostomy pouch application today, all other LE dressings CDI. PAST MEDICAL HISTORY Medical History[1] PAST SURGICAL HISTORY Surgical History[2] FAMILY HISTORY Family History[3] SOCIAL HISTORY Social History[4] ALLERGIES Allergies[5] MEDICATIONS Medications Ordered Prior to Encounter[6] REVIEW OF SYSTEMS Pertinent items are noted in HPI. Objective: BP (!) 89/38 (BP Location: Left arm, Patient Position: Sitting) Pulse 80 Temp 36.6 C (97.8 F) (Temporal) Resp 16 Ht 4' 9.01" (1.448 m) Wt 73 lb (33.1 kg) SpO2 94% BMI 15.79 kg/m PHYSICAL EXAM General appearance: in no apparent distress, in no respiratory distress and acyanotic, alert, and moderately ill, thin appearing Skin: warm and dry Pulmonary: Normal effort, no respiratory distress, no cyanosis Abdomen: LLQ abdomen - soft, tender and reddened with erosion of tissue d/t large fistula GI contents/brown liquid stool 11/01/24 Extremities: right amp site - 4.5 x 7.0cm - wound bed with large pink granular tissue and small moist slough, cydney wound tissue intact with dried exudate. Dressing C/D/I 10/31/24 Right heel - 4.0 x 4.5 x utd(cm) - wound bed with large black eschar and scant pink granular tissue noted along wound edges, cydney wound tissue intact. Dressing CDI 10/31/24 Left post calf - 4.0 x 1.0 x utd(cm) - wound bed with large pink granular tissue and small moist adherent slough, cydney wound tissue intact, with small serosang drainage. Dressing CDI Left heel - 1.5 x 0.8 x 0.1cm - blanchable dark pink tissue with small open wound with thin yellow slough and pink granular tissue noted, scant serosang drainage. Dressing CDI 10/31/24 Sacrum - 4.0 x 2.0 x utd(cm) - wound bed with large adherent yellow/brown slough obscuring tissue level of involvement. Cydney wound tissue intact, slow to nadia, small serosang drainage. Old foam dressing completely saturated with urine, pure wick in place leaking large amounts of urine. 11/01/24 LABS CBC: Lab Results Component Value Date WBC 6.2 11/01/2024 HGB 9.3 (L) 11/01/2024 HCT 29.5 (L) 11/01/2024 MCV 71.4 (L) 11/01/2024 PLT 271 11/01/2024 BMP: Lab Results Component Value Date NA 135 (L) 11/01/2024 K 3.9 11/01/2024 CL 108 (H) 11/01/2024 CO2 21 (L) 11/01/2024 BUN 8 (L) 11/01/2024 CREATININE 0.49 (L) 11/01/2024 PT/INR: No results found for: "PROTIME", "INR" Prealbumin: No results found for: "PREALBUMIN" Albumin:No components found for: LABALBU Sed Rate: Lab Results Component Value Date SEDRATE 67 (H) 10/31/2024 Micro: No components found for: BC Assessment/Plan: Nursing staff to perform dressing change: LLQ abdomen fistula - MASD d/t fecal incontinence: -cleanse with NS, apply Maxorb, ABD(s) - change BID/PRN Right foot NHSW (delayed closure): -cleanse wit NS, apply Maxorb, ABD, kerlix daily/PRN Right heel unstageable pressure injury (POA): -cleanse with NS, apply betadine, ABD, kerlix daily/PRN Left calf venous ulcer (fat): -cleanse with NS, apply adaptic, ABD, kerlix daily/PRN Left heel stage 3 pressure injury (POA): -cleanse with NS, apply mesalt, ABD, kerlix daily/PRN Sacral unstageable pressure injury (POA): -cleanse with soap and water, apply ET mix TID and PRN, 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 Any questions or concerns please secure chat "ACH wound/ostomy". Thank you for the consult! I personally obtained the barriga and critical portions of the history and physical exam. I reviewed the labs, imaging studies, and electronic medical record. I reviewed the chart documentation and discussed the patient with treatment team members. I have edited the note to reflect my clinical findings and my assessment and plan. Please note, the time of this note does not reflect the time I saw this patient today, but the time of this documentaton. Portions of this note including HPI, ROS, impression/plan, and examination may have been copied forward from admission to today as to provide important historical information essential in contributing to medical decision making. Documentation has been reviewed and edited as necessary to support clinical decision making for today's visit and to reflect my own independent evaluation of this patient. Decision making for today's visit and to reflect my own independent evaluation of this patient. [1] History reviewed. No pertinent past medical history. [2] History reviewed. No pertinent surgical history. [3] No family history on file. [4] Social History Tobacco Use Smoking status: Former Current packs/day: 0.00 Average packs/day: 2.0 packs/day for 65.0 years (130.0 ttl pk-yrs) Types: Cigarettes Start date: 1959 Quit date: 05/2024 Years since quittin.4 Smokeless tobacco: Never Substance Use Topics Alcohol use: Never Drug use: Never [5] No Known Allergies [6] No current facility-administered medications on file prior to encounter. Current Outpatient Medications on File Prior to Encounter Medication Sig Dispense Refill acetaminophen (Tylenol) 325 MG tablet Take 650 mg by mouth every 4 hours as needed for fever (pain). acetaminophen (Tylenol) 650 MG suppository Insert 650 mg into the rectum every 4 hours as needed for fever (pain). aluminum-magnesium hydroxide 200-200 MG/5ML suspension Take 30 mL by mouth every 4 hours as needed (GI distress). Amino Acid Infusion in D15W (Clinimix in Dextrose, 5/15,) 5 % infusion Use 120mL/hr intravenously in evening to run for 10 hours aspirin 81 MG EC tablet Take 81 mg by mouth daily. atorvastatin (Lipitor) 80 MG tablet Take 80 mg by mouth Nightly. benzonatate (Tessalon) 100 MG capsule Take 100 mg by mouth 3 times daily as needed for cough. Do not crush or chew. bisacodyl (Dulcolax) 10 MG suppository Insert 10 mg into the rectum. As needed for constipation x1 per episode if MOM ineffective citalopram (CeleXA) 10 MG tablet Take 10 mg by mouth daily. ferrous sulfate 325 (65 Fe) MG EC tablet Take 325 mg by mouth daily (with breakfast). Do not crush, chew, or split. gabapentin (Neurontin) 100 MG capsule Take 100 mg by mouth 2 times daily. glucose (Glutose) 40 % gel oral gel Take 15 g by mouth. As needed for hypoglycemic episode guaiFENesin (Humibid 3) 400 MG tablet Take 400 mg by mouth 3 times daily as needed for congestion. guaiFENesin (Robitussin) 100 MG/5ML liquid Take 200 mg by mouth every 4 hours as needed for cough or congestion. heparin 5000 UNIT/ML injection Inject 5,000 Units under the skin every 12 hours. hydrOXYzine pamoate (Vistaril) 25 MG capsule Take 25 mg by mouth every 4 hours as needed for itching or anxiety. X 2 weeks until 11/09/24 insulin regular (HumuLIN R,NovoLIN R) 100 UNIT/ML injection Inject 0-8 Units under the skin with evening meal. Sliding Scale: BG 0-149 = 0 units/ 150-200 = 3 units; 201-250 = 5 units; 251-350 = 8 units; > 350 - Notify MD insulin regular (HumuLIN R,NovoLIN R) 100 UNIT/ML injection Inject 0-8 Units under the skin Nightly. Sliding Scale: BG 0-149 = 0 units/ 150-200 = 3 units; 201-250 = 5 units; 251-350 = 8 units; > 350 - Notify MD magnesium hydroxide (Milk of Magnesia) 400 MG/5ML suspension Take 30 mL by mouth. As needed for constipation x1 mirtazapine (Remeron) 30 MG tablet Take 30 mg by mouth Nightly. oxyCODONE-acetaminophen (Percocet) 5-325 MG tablet Take 1 tablet by mouth every 8 hours as needed (acute pain). Until 11/05/24 polyethylene glycol, PEG, 3350 (Miralax) 17 g packet Take 17 g by mouth. As needed for constipation sodium chloride 0.9 % bolus 500 mL. Use 125 mL/hr intravenously in AM for hydration - run AFTER TPN for 4 hours to total 500mL Sodium Phosphates (FLEET ENEMA RE) Insert 1 enema into the rectum. As needed for constipation x2 per episodes if Dulcolax suppository ineffective Zinc Sulfate 220 (50 Zn) MG tablet Take 220 mg by mouth 2 times daily. [DISCONTINUED] citalopram (CeleXA) 10 MG/5ML solution Take 10 mg by mouth daily. Cosigned by Gabriele Ryder DO at 11/02/2024 2:48 PM EDT Associated Order(s): IP CONSULT TO INFECTIOUS DISEASES Images from the original note were not included. [facility] - Infectious Diseases Attending Consult Note Reason for Consult: Possible infected PICC line, multiple wounds, abdominal abscess/fistula, possible pelvic oseomyelitis on previous imaging. History of Present Illness: 69 yo F, transferred form [facility] for evaluaiton of abdominal fistula( apparently chronic, patient has been managing it for 5 years), as well as concern for PICC related infection, bacteremia, elevated WBC,, when she was transferred form [facility] to OSH 3 days ago. She reports having R partial foot amputation for gangrene few months ack, on 08/17, and just finished prolonged IV antibiotic course. Afterwards, treated at [facility] for Pneumonia, and afterwards ? PICC-related infeciton. She denied pain to RUE site, or streaking, but admitted it wasn't cared for properly. Denied feer chills and malaise. Hermain issue remains pain to R foot and NWB status, though she believes wound is healing. Also developed several pressure ulcers to L heel, jules and sacral area. OSH records([facility]) not available and jani scant OR notes form admission at [facility] in her chart. On intake here, BC obtained + Klebsiella pneumoniae, and PICC was removed, catheter tip also + same pathogen. She is currentlyon Zosyn and ID consulted. Imaging also mentioned fistula to abdomen, she is not inclined to hae additional surgery for this issue at the moment. She denies feer, chills, malaise. + mild productive cough, improved from at week. Denies N/V/D. No ack pain. Patient is h kevin of hearing. NKDA Past Medical History: Medical History[1] Past Surgical History: Surgical History[2] Current Medications: Current Medications[3] Allergies: Allergies[4] Social History: Social History Socioeconomic History Marital status: Spouse name: Not on file Number of children: Not on file Years of education: Not on file Highest education level: Not on file Occupational History Not on file Tobacco Use Smoking status: Former Current packs/day: 0.00 Average packs/day: 2.0 packs/day for 65.0 years (130.0 ttl pk-yrs) Types: Cigarettes Start date: 1959 Quit date: 05/2024 Years since quittin.4 Smokeless tobacco: Never Substance and Sexual Activity Alcohol use: Never Drug use: Never Sexual activity: Not on file Other Topics Concern Not on file Social History Narrative Not on file Social Drivers of Health Financial Resource Strain: Not on file Food Insecurity: No Food Insecurity (10/31/2024) Hunger Vital Sign Worried About Running Out of Food in the Last Year: Never true Ran Out of Food in the Last Year: Never true Transportation Needs: No Transportation Needs (10/31/2024) PRAPARE - Transportation Lack of Transportation (Medical): No Lack of Transportation (Non-Medical): No Physical Activity: Not on file Stress: Not on file Social Connections: Not on file Intimate Partner Violence: Not At Risk (10/31/2024) Humiliation, Afraid, Rape, and Kick questionnaire Fear of Current or Ex-Partner: No Emotionally Abused: No Physically Abused: No Sexually Abused: No Housing Stability: Low Risk (10/31/2024) Housing Stability Vital Sign Unable to Pay for Housing in the Last Year: No Number of Times Moved in the Last Year: 1 Homeless in the Last Year: No Family History: Family History[5] Review of Systems: Review of Systems Constitutional: Negative for chills, fatigue and fever. Respiratory: Positive for cough. Negative for shortness of breath. Cardiovascular: Negative for chest pain and leg swelling. Gastrointestinal: Negative. Musculoskeletal: Negative for back pain and myalgias. Skin: Positive for wound. Neurological: Positive for numbness. Negative for weakness. Hematological: Does not bruise/bleed easily. Vitals: Patient Vitals for the past 24 hrs: BP Temp Temp src Pulse Resp SpO2 Height Weight 11/01/24 0805 (!) 89/38 36.6 C (97.8 F) Temporal 80 16 94 % -- -- 11/01/24 0706 -- -- -- -- -- -- 1.448 m (4' 9.01") -- 11/01/24 0705 (!) 91/50 36 C (96.8 F) Temporal 73 18 94 % -- -- 11/01/24 0442 (!) 97/41 (!) 35.8 C (96.4 F) Temporal 78 16 100 % -- -- 11/01/24 0423 (!) 92/44 36 C (96.8 F) Temporal 78 16 93 % -- -- 10/31/24 2019 104/52 36.2 C (97.2 F) Temporal 88 16 92 % -- -- 10/31/24 1132 -- -- -- -- -- -- 1.448 m (4' 9") 33.1 kg (73 lb) 10/31/24 1032 (!) 99/46 36.7 C (98 F) Temporal 94 18 94 % -- -- Physical Exam: Physical Exam Vitals reviewed. Constitutional: General: She is not in acute distress. Appearance: She is ill-appearing (chronic, frail, and hard of hearing). She is not toxic-appearing. HENT: Mouth/Throat: Mouth: Mucous membranes are moist. Pharynx: No oropharyngeal exudate (ederntulous). Eyes: General: Scleral icterus present. Extraocular Movements: Extraocular movements intact. Cardiovascular: Rate and Rhythm: Normal rate. Heart sounds: No murmur heard. Pulmonary: Effort: No respiratory distress. Breath sounds: Normal breath sounds. No wheezing or rales. Abdominal: General: There is no distension. Palpations: Abdomen is soft. Tenderness: There is no abdominal tenderness (LLQ with fistula ad muted erythema surrounding, not tender, no crepitus). Hernia: No hernia is present. Musculoskeletal: General: Signs of injury (R foot stump wrapped, photos reviewed instead, Heel drop splint on L, wound not exmained.) present. No swelling. Right lower leg: No edema. Left lower leg: No edema. Lymphadenopathy: Cervical: No cervical adenopathy. Skin: Findings: Bruising (scattered) present. No rash. Neurological: General: No focal deficit present. Mental Status: She is alert and oriented to person, place, and time. Motor: No weakness. Psychiatric: Thought Content: Thought content normal. Labs: Recent Labs 10/31/24 14211/01/24 0037 NA 135* 135* K 4.0 3.9 CL 105 108* CO2 21* 21* BUN 9 8* CREATININE 0.46* 0.49* GLUCOSE 112 90 CALCIUM 7.6* 7.7* PROT 5.4* -- BILITOT 0.4 -- ALKPHOS 285* -- AST 52* -- ALT 61* -- Recent Labs 10/31/24142411/01/247 11/01/24 0901 WBC 8.4 6.2 -- HGB 7.0* 6.5* 9.3* HCT 22.5* 21.0* 29.5* PLT 273 271 -- LYMPHOPCT 4* 9.3* -- MONOPCT 4* 14.3* -- BASOPCT -- 1.0 -- NEUTROABS -- 4.4 -- Micro: No results for input(s): "COVID19" in the last 72 hours. BC: Klebsiella pneumoniae 1 set Cath tip: Klebsiella pneumoniae Abd wall wound cx: polymicrobial gram stain, pending Lines: PIV Radiography/Echo/Other: reviewed 10/31 CTAP: mpression: 1. Small bilateral infiltrates and effusions, right greater than left. CT PELVIS: 3 mm axial cuts are obtained from the iliac crests through the symphysis pubis with 75 mL Isovue IV contrast. Dose reduction was employed with automated exposure control. There are no comparison studies at this institution. FINDINGS: Air and stool are noted in nondistended loops of colon to the level of the rectum. Bowel wall thickening and mild inflammation are noted in the splenic flexure of the left colon. This abuts the abdominal surface. A fistulous tract is thought present to the skin surface. There are no loculated collections to suggest an abscess. The small bowel is not dilated. There is no evidence of obstruction. The distal ureters and bladder are normal. No free fluid is seen within the pelvis. Sagittal reconstructed images of the spine demonstrate L1 and L2 compression fractures. The age of these fractures is uncertain. IMPRESSION: 1. Mild bowel wall thickening and inflammation in the splenic flexure of the left colon. 2. Fistulous tract to the skin surface in the left lower quadrant. 3. No loculated collections to suggest an abscess. 4. Small bilateral infiltrates and effusions, right greater than left. 5. L1 and L2 compression fractures. The age of these fractures is uncertain. CXR: Impression: Interstitial prominence, which may be secondary to pulmonary edema, atypical infection or may in part be chronic. Mild left basilar infiltrate also present. Follow-up recommended. Probable small right-sided pleural effusion. Antimicrobials,Start/End Dates: Vancomycin PIptazo At [facility]- no records available Impression: 69 F ECF [id number] PVD, recent partial ray amputation for gangrene, an completed a course of IV antibiotics recently admitted with: Klebsiella Bacteremia, presumed from CLABSI( PICC) already removed and cath tip with same pathogen- alray on broad coverage. Multiple pressure ulcers, heel( unstageable), possible OM,- wound care for now, of loading Recent Pneumonia- already trated Chronic abdominal fistula- agree may not need acute management if present for 5 years already Severe malnutrition Debility Tboacco use, quit recently Overall not toxic-appearing Plan: Same regimen, and de-escalate as needed. Obtain OSH records and will reach out to [facility] for pertinent labs and studies. Based on diagnoses and management, combination of acute and chronic problems, exacerbations and/or acuity, this visit should be considered to be of high complexity. Total time of 60 minutes on this day of encounter spent on, but not limited to review of tests, medical records , complex history , review of external medical records, paper and electronic, counseling and education (patient, family member, caregiver), and ordering medications, tests, and procedures. [1] History reviewed. No pertinent past medical history. [2] History reviewed. No pertinent surgical history. [3] Current Facility-Administered Medications Medication Dose Route Frequency Provider Last Rate Last Admin aspirin EC tablet 81 mg 81 mg Oral Daily Henry Shaw APRN - SECURITY SERGEANT 81 mg at 11/01/24 0824 atorvastatin (Lipitor) tablet 80 mg 80 mg Oral Nightly Henry Shaw APRN - SECURITY SERGEANT 80 mg at 10/31/242019 citalopram (CeleXA) tablet 10 mg 10 mg Oral Daily NIRMAL Orona CNP 10 mg at 11/01/24823 dextrose 5 % infusion 100 mL/hr IntraVENous PRN NIRMAL Orona CNP dextrose 50 % solution 12.5 g 12.5 g IntraVENous PRN NIRMAL Orona CNP enoxaparin (Lovenox) syringe 30 mg 30 mg SubCUTAneous Daily Henry Shaw APRN - SECURITY SERGEANT 30 mg at 11/01/24 08 ferrous sulfate tablet 325 mg 325 mg Oral Daily with breakfast NIRMAL Orona CNP 325 mg at 11/01/24823 gabapentin (Neurontin) capsule 100 mg 100 mg Oral TID Henry Shaw APRN - SECURITY SERGEANT 100 mg at 11/01/24823 glucagon (human recombinant) injection 1 mg 1 mg IntraMUSCular PRN NIRMAL Orona CNP glucose oral gel 15 g 15 g Oral PRN NIRMAL Orona CNP Insulin Lispro (Humalog) injection 0-6 Units 0-6 Units SubCUTAneous TID WC NIRMAL Orona CNP And Insulin Lispro (Humalog) injection 0-6 Units 0-6 Units SubCUTAneous Nightly NIRMAL Orona CNP lactated ringers bolus 1,000 mL 1,000 mL IntraVENous Once Steven De La Cruz MD 500 mL/hr at 11/01/24 08 1,000 mL at 11/01/24823 mirtazapine (Remeron) tablet 30 mg 30 mg Oral Nightly NIRMAL Orona CNP 30 mg at 10/31/242019 naloxone (Narcan) injection 0.4 mg 0.4 mg IntraVENous q5 min PRN Shey Trujillo MD oxyCODONE-acetaminophen (Percocet) 5-325 MG per tablet 1 tablet 1 tablet Oral q6h PRN Shey Trujillo MD 1 tablet at 11/01/24 0823 piperacillin-tazobactam (Zosyn) 4,500 mg in sodium chloride 0.9 % 100 mL IVPB Mini-Bag Plus 4,500 mg IntraVENous q6h NIRMAL Orona CNP 33.3 mL/hr at 11/01/24 0824 4,500 mg at 11/01/24 0824 polyethylene glycol (PEG) 3350 (Miralax) packet 17 g 17 g Oral Daily PRN Shey Trujillo MD prochlorperazine (Compazine) injection 5 mg 5 mg IntraVENous q6h PRN Shey Trujillo MD sodium chloride 0.9 % infusion 5-250 mL/hr IntraVENous PRN Shey Trujillo MD sodium chloride 0.9 % infusion 250 mL/hr IntraVENous PRN Zeferino Correia MD sodium chloride 0.9 % infusion 100 mL/hr IntraVENous Continuous Steven De La Cruz MD sodium chloride 0.9% (NS) flush 5-40 mL 5-40 mL IntraVENous q12h Shey Trujillo MD 10 mL at 10/31/242027 sodium chloride 0.9% (NS) flush 5-40 mL 5-40 mL IntraVENous PRN Shey Trujillo MD vancomycin (Vancocin) 500 mg in sodium chloride 0.9 % 100 mL IVPB 15 mg/kg IntraVENous q12h Steven De La Cruz MD [4] No Known Allergies [5] No family history on file. Images from the original note were not included. Pharmacy Managed Vancomycin Dosing Service Consult Note Consult Date: 10/31/24 Patient Name: Yoko Emanuel Allergies: Patient has no known allergies. Age: 69 y.o. Sex: female Estimated body mass index is 15.8 kg/m as calculated from the following: Height as of this encounter: 1.448 m (4' 9"). Weight as of this encounter: 33.1 kg (73 lb). DW: 33.1 kg No results found for: "CREATININE", "BUN", "WBC", "CRCLEARANCE"Calculated CrCl: *CrCl UNKNOWN because NO history of Scr in EMR. CMP ordered and pending collection.. Will follow.* Consulted By: NICHELLE Ortiz Infectious Diagnosis: SSTI (AUC Goal 400-600 mg/L*hr) Random Vancomycin Level Due: 6 AM Antimicrobials: Patient recently received an antibiotic (last 12 hours) None Assessment/Plan: Doses, serum creatinine, and vancomycin levels interfaced automatically to [facility] and data has been analyzed and interpreted. Give Vancomycin 750mg IVPB x1 (~22.7mg/kg) to get vancomycin started in patient that has NO labs in EMR to prevent treatment delay. Will re-assess regimen when SCR collected and determine plan going forward. Will assess random level on 64 AM and adjust as appropriate. Trend serum creatinine. Orders placed. ADDENDUM: 11/01 1443 Patient's physical chart had SCR from [facility] as paper copy. 10/30 SCR 0.38mg/dL. Ran patient's info in our AUC dosing program, but do not trust recs as patient is small (only 33.1kg) and is not typical population. Will enter intermittent dosing place fierro and check level in AM. Thank you for this consult. Please secure text or call with questions. DATE: 10/31/24 TIME: 2:24 PM Dasha Herman RPh Clinical Pharmacist Available via Secure Chat documented in this encounter [facility] 11-03-2024 Note [facility] - Infectious Diseases Attending Progress Note Subjective: Following for CLBSI. Pt hard of hearing, but answering questions appropriately. Pt reports ongoing drainage from her ECF without change. No itching, rashes. No nausea, vomiting. Pt reports she is constipated and is waiting to have a bowel movement. Chart, vitals, labs reviewed. Pt is afebrile. Objective: Vitals: Patient Vitals for the past 24 hrs: BP Temp Temp src Pulse Resp SpO2 11/03/24 0537 (!) 111/47 36.4 ?C (97.5 ?F) Temporal 84 18 92 % 11/03/24 0058 (!) 103/43 36.7 ?C (98 ?F) Temporal 55 16 99 % Physical Exam Vitals and nursing note reviewed. Constitutional: General: She is not in acute distress. Appearance: She is ill-appearing. She is not toxic-appearing or diaphoretic. Comments: cachectic HENT: Head: Normocephalic and atraumatic. Right Ear: External ear normal. Left Ear: External ear normal. Nose: Nose normal. Eyes: General: No scleral icterus. Right eye: No discharge. Left eye: No discharge. Conjunctiva/sclera: Conjunctivae normal. Cardiovascular: Rate and Rhythm: Normal rate and regular rhythm. Heart sounds: Normal heart sounds. Pulmonary: Effort: Pulmonary effort is normal. Abdominal: Palpations: Abdomen is soft. Musculoskeletal: Comments: Loss of muscle x 4 limbs; s/p R TMA Skin: General: Skin is warm and dry. Findings: No rash. Neurological: Mental Status: She is alert and oriented to person, place, and time. Mental status is at baseline. Comments: Hard of hearing Psychiatric: Mood and Affect: Mood normal. Behavior: Behavior normal. Thought Content: Thought content normal. Judgment: Judgment normal. Labs: Lab Results Component Value Date/Time NA 137 11/02/2024309 K 4.0 11/02/2024309 CL 109 (H) 11/02/2024309 CO2 19 (L) 11/02/2024309 BUN 5 (L) 11/02/2024309 CREATININE 0.50 (L) 11/02/2024309 GLUCOSE 74 (L) 11/02/2024309 CALCIUM 7.5 (L) 11/02/2024 031 PROT 5.4 (L) 10/31/2024 142 BILITOT 0.4 10/31/2024 142 ALKPHOS 285 (H) 10/31/2024 142 AST 52 (H) 10/31/2024 142 ALT 61 (H) 10/31/2024 142 Lab Results Component Value Date/Time WBC 6.6 11/02/2024309 HGB 8.9 (L) 11/02/2024309 HCT 28.7 (L) 11/02/2024 031 PLT 309 11/02/2024309 LYMPHOPCT 6.5 (L) 11/02/2024 0310 LYMPHOPCT 4 (L) 10/31/2024 1425 MONOPCT 10.8 11/02/2024 0310 MONOPCT 4 (L) 10/31/2024 1425 BASOPCT 1.4 11/02/2024 0310 NEUTROABS 4.9 11/02/2024 0310 Micro: 11/02 BC 2/2 NGTD 10/31 cath tip >15CFU K pneumo 10/31 wound abdomen enteric lilly 10/31 BC 2/2 K pneumo Lines: PIVs Radiography/Echo/Other: 10/31 CT a/p 1. Mild bowel wall thickening and inflammation in the splenic flexure of the left colon. 2. Fistulous tract to the skin surface in the left lower quadrant. 3. No loculated collections to suggest an abscess. 4. Small bilateral infiltrates and effusions, right greater than left. 5. L1 and L2 compression fractures. The age of these fractures is uncertain. 10/31 CXR Interstitial prominence, which may be secondary to pulmonary edema, atypical infection or may in part be chronic. Mild left basilar infiltrate also present. Follow-up recommended. Probable small right-sided pleural effusion. Antimicrobials, Start/End Dates: Vanc Pip tazo Impression: K pneumo bacteremia from PICC CLSBI, already removed Possible sacral osteomyelitis ECF Malnutrition Currently DNRCC, but notes report pt not there yet Plan: - ? Need to update code status; pt currently DNRCC - follow up repeat blood cultures - stop vancomycin - continue pip tazo - follow up full sens on K pneumo from blood - follow up repeat blood cultures - Dr. Ibarra and Karie Ibanez [employer] cover this weekend Ida Suarez MD Based on diagnoses and management, combination of acute and chronic problems, exacerbations and/or acuity, this visit should be considered to be of moderate complexity. [facility] 11-03-2024 Note Problem: Pain - Adul t Goal: Verbalizes/displays adequate comfort level or baseline comfort level Outcome: Progressing Problem: Safety - Adult Goal: Free from fall injury Outcome: Progressing [facility] 11-02-2024 Note Hospitalist Progress Note 11/02/2024 Subjective: Admit Date: 10/31/2024 PCP: No primary care provider on file. Room#: [id number] BRIEF HOSPITAL COURSE: Yoko is a 69 y.o. female with past medical history below who presents with chief complaint listed above. Patient was sent from [facility] to [facility] for concerning findings on CT abdominal scan. Patient initially was sent to nursing home facility from [facility] for a partial amputation of her right foot. She had osteomyelitis. Patient was discharged on Zosyn and had a right PICC line placed. While in nursing home facility she completed her course of Zosyn for foot wound. That she then contracted pneumonia or started on IV Rocephin. That ended last week. Patient did have a elevated white count and positive blood cultures so they sent her to the hospital. Patient was found to have 2 abdominal abscesses and possible osteomyelitis. Patient currently has a sacral wound, left lower quadrant fistula draining purulent drainage, two leftheel wounds and healing right partial foot amputation. She was started on antibiotics and admitted. CT A/P showed no abscess, mild bowel wall thickening and inflammation in the splenic flecture and fistulous tract in the LLQ. She required blood tx 11/01 for hb 6.5. ID consulted for ABX mangement. Interval History: 11/03: She c/o fatigue. She denies CP or SOB. No acute events overnight. D/W nurse and TCC. D/W ID - will need more culture information from outside hospitals - D/W floor staff and attempting to obtain. 11/02: She c/o granulized pain and fatigue. No CP or SOB. No overnight issues. Case and plan discussed with patient and bedside nurse. All questions answered. Adult diet Regular 24HR INTAKE/OUTPUT: No intake or output data in the 24 hours ending 11/02/24 1354 Past Medical History: Medical History[1] LABS: CBC: Recent Labs 10/31/24 1425 11/01/24 0037 11/01/24 0901 11/02/24 0310 WBC 8.4 6.2 -- 6.6 RBC 3.14* 2.94* -- 3.79* HGB 7.0* 6.5* 9.3* 8.9* HCT 22.5* 21.0* 29.5* 28.7* MCV 71.7* 71.4* -- 75.7* RDW 17.8* 17.8* -- 19.3* PLT 273 271 -- 309 BMP: Recent Labs 10/31/24 1425 11/01/24 0037 11/02/24 0310 NA 135* 135* 137 K 4.0 3.9 4.0 CL 105 108* 109* CO2 21* 21* 19* BUN 9 8* 5* CREATININE 0.46* 0.49* 0.50* GLUCOSE 112 90 74* CALCIUM 7.6* 7.7* 7.5* ANIONGAP 9 6 9 LIVER PROFILE: Recent Labs 10/31/24 1425 AST 52* ALT 61* BILITOT 0.4 ALKPHOS 285* PROT 5.4* PT/INR: No results for input(s): "PROTIME", "INR" in the last 72 hours. CARDIAC ENZYMES: No results for input(s): "TROPONINI" in the last 72 hours. Procalcitonin: No results found for: "PROCAL" COVID-19 PCR: No results for input(s): "COVID19" in the last 72 hours. Objective: Vitals: BP 107/53 Pulse 84 Temp 36.6 ?C (97.8 ?F) (Temporal) Resp 18 Ht 4' 9.01" (1.448 m) Wt 73 lb (33.1 kg) SpO2 92% BMI 15.79 kg/m? Pulse Ox: SpO2 Av % Min: 92 % Max: 92 % Supplemental O2: Physical Exam Vitals reviewed. Constitutional: General: She is not in acute distress. Comments: Chronicially ill appearing, thin, pleasant, non-labored breathing Cardiovascular: Rate and Rhythm: Normal rate and regular rhythm. Pulmonary: Effort: Pulmonary effort is normal. Breath sounds: Normal breath sounds. Abdominal: General: Bowel sounds are normal. Palpations: Abdomen is soft. Tenderness: There is no abdominal tenderness. Musculoskeletal: Comments: Toe amputations noted, fistula site ntoed Skin: Comments: Heel wound and toe amputations noted Neurological: General: No focal deficit present. Mental Status: She is alert and oriented to person, place, and time. 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 Sacral pressure injury Right heel pressure injury Left heel pressure injury Left Achilles pressure injury Acute anemia Stable chronic problems affecting care, new non-acute diagnoses: Hyperlipidemia Neuropathy Diabetes mellitus type 2 Plan As a result of the above findings & factors, the following mgmt was pursued: - ID consult - vancomycin and zosyn 10/31 - home medications - lópez cultures - obtain outside hospital culture records - PICC removed - IVF - follow lower BP - consult pall care - consult wound care - fecal occult - am labs, replace lytes prn - PT/OT/CM/SW - delirium precautions: increase activity - DVT prophylaxis: enoxaparin and encourage ambulation Complexity: Acute illness with systemic symptoms (MOD). Risk: Low risk diagnostic testing or treatment (LOW). Advan (more content not included)... [facility] 11-02-2024 Note Pharmacy to Dose Van comycin - Progress Note Lab Results Component Value Date CREATININE 0.50 (L) 11/02/2024 BUN 5 (L) 11/02/2024 WBC 6.6 11/02/2024 VANCORANDOM 11.8 11/02/2024 VANCOTROUGH 17.3 11/01/2024 Doses, serum creatinine, and vancomycin levels interfaced automatically to [employer] and data has been analyzed and interpreted. Infectious Diagnosis: SSTI Est CrCl: 55 mL/min (Cockcroft-Gault) Assessment: Current regimen vancomycin 500 mg every 12 hours (15.1 mg/kg) Predicted AUC = 390 mg/L*hr (goal 400-600 mg/L*hr) PAUC = 45% (probability that AUC is >400 mg/L*hr) Pconc = 1% (probability that Ctrough is above 20 mcg/mL (toxicity)) Plan: Is the current dose therapeutic? [] Yes - obtain next level on unless predicted AUC is sub-/supra-therapeutic or change in serum creatinine. [x] No - change current regimen to vancomycin 750 mg every 12 hours (22.7 mg/kg) for predicted AUC 584 mg/L*hr, PAUC = 98% , and Pconc* = 17%. Obtain next level on 11/03. Trend serum creatinine. Trend AUC using Bayesian Modeling. Orders placed. DATE: 11/02/24 TIME: 10:15 AM [facility] Clinical Pharmacist Available via Secure Chat [facility] 11-02-2024 Note [facility] - Infectious Diseases Attending Progress Note Subjective: No acute events, afebrile, and still with mild moist cough. Also has chronic pain( phantom) to R foot, along with to her sacral decub. I contacted ECF and spoke with unit nurse taking care of her. I also requested labs and records to be faxed over to . Appears she was started on TPN from her recent hospitalization and while in ECF for the fistula issue, but she mentions being able to tolerate po , and just cleans up her draining fistula with wet cloth twice a day for years. Has not been evaluated by surgery for this, and is not ready for any operation just yet, acknowledging she has improve her nutritional status. Denies ever having colonoscopy done to assess ECF.No voiding issues. Open to Surgical input however. Also just finished a course of Doxycycline and Ceftriaxone for Pneumonia on 10/25. ON routine labs, her WBC jumped and prompted her ED evaluation at [facility]. She was also having low grade temps, but No obvious N/V or issues with her PICC site. PICC originally placed for IV antibiotics after her TMA in July. Objective: Vitals: Patient Vitals for the past 24 hrs: BP Temp Temp src Pulse Resp SpO2 11/02/24 0741 107/53 36.6 ?C (97.8 ?F) Temporal 84 18 92 % 11/01/24 1959 (!) 97/47 36.6 ?C (97.9 ?F) Temporal 87 16 92 % 11/01/24 1711 (!) 93/39 36.2 ?C (97.2 ?F) Temporal 78 14 92 % 11/01/24 1206 (!) 98/36 -- -- 81 -- -- Physical Exam Vitals reviewed. Constitutional: General: She is not in acute distress. Appearance: Normal appearance. She is ill-appearing (frail , thin). She is not toxic-appearing. Eyes: General: No scleral icterus. Extraocular Movements: Extraocular movements intact. Cardiovascular: Rate and Rhythm: Normal rate and regular rhythm. Pulses: Normal pulses. Heart sounds: Normal heart sounds. No murmur heard. Pulmonary: Effort: Pulmonary effort is normal. No respiratory distress. Breath sounds: Normal breath sounds. Abdominal: General: There is no distension. Palpations: Abdomen is soft. Tenderness: There is no abdominal tenderness (mild erythema surrounding fistula, with drainage). Musculoskeletal: General: Signs of injury (R foot stump wrapped, L heel unstageable ulcer, with Heel drop splint, did not exaimine sacral ulcer) present. Cervical back: Normal range of motion and neck supple. Lymphadenopathy: Cervical: No cervical adenopathy. Skin: Coloration: Skin is not jaundiced. Findings: Erythema present. Neurological: General: No focal deficit present. Mental Status: She is alert and oriented to person, place, and time. Motor: No weakness. Psychiatric: Mood and Affect: Mood normal. Thought Content: Thought content normal. Labs: Lab Results Component Value Date/Time NA 137 11/02/2024309 K 4.0 11/02/2024309 CL 109 (H) 11/02/2024309 CO2 19 (L) 11/02/2024309 BUN 5 (L) 11/02/2024309 CREATININE 0.50 (L) 11/02/2024309 GLUCOSE 74 (L) 11/02/2024309 CALCIUM 7.5 (L) 11/02/2024309 PROT 5.4 (L) 10/31/20241424 BILITOT 0.4 10/31/20241424 ALKPHOS 285 (H) 10/31/20241424 AST 52 (H) 10/31/2024 142 ALT 61 (H) 10/31/20241424 Lab Results Component Value Date/Time WBC 6.6 11/02/2024309 HGB 8.9 (L) 11/02/2024309 HCT 28.7 (L) 11/02/2024309 PLT 309 11/02/2024309 LYMPHOPCT 6.5 (L) 11/02/2024309 LYMPHOPCT 4 (L) 10/31/20241424 MONOPCT 10.8 11/02/2024 0310 MONOPCT 4 (L) 10/31/2024 1425 BASOPCT 1.4 11/02/2024 0310 NEUTROABS 4.9 11/02/2024 0310 Micro: reviewed 10/31 Cath tip Kleb pneumoniae ( R amp- S-all others) Wound cx: mod enteric lilly BC Kleb pneumoniae ECF labs requested to be faxed to [facility]6 Lines: PIV Radiography/Echo/Other: reviewed Antimicrobials, Start/End Dates: Vancomycin Ppiptazo Impression: 69 F ECF resident with PVD, recent partial ray amputation for gangrene, an completed a course of IV antibiotics recently admitted with: Klebsiella Bacteremia, presumed from CLABSI( PICC) already removed and cath tip with same pathogen- already on broad coverage. D/dx includes chronic ECF and multiple wounds. Multiple pressure ulcers, heel( unstageable), possible sacral OM,- wound care for now, off loading. Theoretically her prolonged IV course to 09/22 should have covered her chronic sacral decub ulcer or OM, unless abscess present that needs surgical excision. CTAP here did not pick any obvious pelvic bone abnormalities. Recent Pneumonia- already treated Chronic abdominal fistula- favor Surgery evaluation, and if she needs TPN to promote healing, ? Need for colonoscopy too. Severe malnutrition-multifactorial Debility Tobacco use, quit recently Overall not toxic-appearing. Plan: Continue same regimen for now. De-escalate if no MRSA isolated. Recheck BC for clearance. Local wound care for now. [facility] 11-02-2024 Note Problem: Problem Int erventions Goal: Assess Nutritional Intake Outcome: Progressing [facility] 11-01-2024 Consult note Associated Order (s): IP CONSULT TO DIETITIAN; IP CONSULT TO DIETITIAN Nutrition Assessment Type and Reason for Visit: Initial, Positive Nutrition Screen, Consult (Gerhard nutritional subscore is less than equal to 2, poor po intake/appetite 5 or more days, wound, + 3 MST) Nutrition Recommendations/Plan: Patient is DNR:CC. Palliative care is following: Continue with regular diet. Consider easy to chew diet however pt mainly prefers soft foods. Per MNT protocol will send vanilla Ensure Plus HP at lunch and vanilla magic cup at dinner. PICC line removed due to infection. Per nursing facility paperwork, it appears patient was receiving TPN. She has an open abdominal fistula. Will monitor goals of care and appropriateness to resume TPN. Monitor weight, labs, I/O, skin assessment, BM, and overall nutritional status. RD will follow up. Malnutrition Assessment: Malnutrition Status: Severe malnutrition Context: Chronic Illness Findings of the 6 clinical characteristics of malnutrition: Energy Intake: No significant decrease in energy intake (Per nursing facility paperwork, patient was on TPN and mechanical soft, GI soft diet. Patient reports poor po intake over past couple of weeks. 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 female with past medical history hyperlipidemia, neuropathy, DM2, partial right foot amputation. Patient was sent from [facility] to [facility] for concerning findings on CT abdominal scan. Patient initially was sent to nursing home facility from [facility] for a partial amputation of her right foot. She had osteomyelitis. Patient was discharged on Zosyn and had a right PICC line placed. While in nursing home facility she completed her course of Zosyn for foot wound. That she then contracted pneumonia or started on IV Rocephin. That ended last week. Patient did have a elevated white count and positive blood cultures so they sent her to the hospital. Patient was found to have 2 abdominal abscesses and possible osteomyelitis. Patient currently has a sacral wound, left lower quadrant fistula draining purulent drainage, two left heel wounds and healing right partial foot amputation. She was started on antibiotics and admitted. CT A/P showed no abscess, mild bowel wall thickening and inflammation in the splenic flecture and fistulous tract in the LLQ. She required blood tx 6/ for hb 6.5. Palliative care is following- current code status: DNR:CCC. ID and wound care consulted. PICC line removed. RD spoke with patient this afternoon. She is hard of hearing. Appetite and po intake have been poor for the past couple of weeks. Patient reports only taking 4-5 bites as nothing tastes good. She is edentulous. She did not like that nursing facility cut her food into small pieces. She does not eat corn or beans as goes thru her. She prefers things like applesauce, ice cream, jello, soda, spaghetti, mac and cheese, chicken noodle soup. She drinks small cup of Boost once to twice per day. Does not like chocolate as goes right thru her. 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 She mentions receiving an expensive yellowish clear vitamin at facility. Per review of SNF paperwork, patient was on TPN as well as oral diet (mechanical soft, GI soft, and liberal consistent CHO). She reports her weight was 73# x 3 days. Her weight was 110#-120# x 8-9 months ago and involuntarily lost weight. Estimated Daily Nutrient Needs: Energy Requirements Based On: Kcal/kg Weight Used for Energy Requirements: Admission Weight for Energy Calculation (kg): 33.1 kg Total Energy Requirements (kcals/day): 9797-8900 kcals per day (32-38) Weight Used for Protein Requirements: Admission Weight in Kg Used for Protein Requirements: 33.1 kg Estimated Total Protein (g/day): 40-50 gm per day (1.2-1.5) Estimated Daily Total Fluid (ml/day): Per MD Nutrition Related Findings: Gerhard = 14, no edema, I/O: +240 (since admit), room service selective, CHER-AE HEIGHTS, oriented/disoriented Wound Type: Wound Consult Pending, Multiple (Per woud care: LLQ abdomen fistula - MASD d/t fecal incontinence; Rt foot NHSW (delayed closure); Rt heel unstageable pressure injury (POA); Lt calf venous ulcer (fat); Lt heel stage 3 pressure injury (POA); Sacral unstageable pressure injury (POA):) BMP: Recent Labs 10/31/24 1425 11/01/24 0037 NA 135* 135* K 4.0 3.9 CL 105 108* CO2 21* 21* BUN 9 8* CREATININE 0.46* 0.49* GLUCOSE 112 90 CALCIUM 7.6* 7.7* HEPATIC: Recent Labs 10/31/24 1425 AST 52* ALT 61* BILITOT 0.4 ALKPHOS 285* Lab Results Component Value Date HGBA1C 6.9 (H) 10/31/2024 Medications: Scheduled Meds[1] Continuous Meds[2] PRN Meds[3] Current Nutrition Therapies: Adult diet Regular Current Oral Intake Average Meal Intake: 1-25% Average Supplements Intake: None Ordered Anthropometric Measures: Height: 144.8 cm (4' 9.01") Admission Body Weight: 33.1 kg (73 lb) (stated on 10/31/24) Usual Body Weight: (Epic weight history is limited; per patient- 110-120# x 8-9 months ago) Hadley Body Weight (lbs) (Calculated): 94 lbs Hadley Body Weight (Kg) (Calculated): 43 kg Weight Adjustment For: No Adjustment BMI Categories: Underweight (BMI less than 22) age over 65 Nutrition Diagnosis: Severe malnutrition, In context of chronic illness related to increase demand for energy/nutrients, early satiety (abdominal fistula, multiple wounds, multiple hospitalizations) as evidenced by weight loss greater than or equal to 20% in 1 year, severe muscle loss, severe loss of subcutaneous fat Increased nutrient needs related to increase demand for energy/nutrients as evidenced by wounds, BMI, weight loss Nutrition Interventions: Nutrition Education/Counseling: No recommendation at this time Coordination of Nutrition Care: Continue to monitor while inpatient Goals: Goals: PO intake 50% or greater, prior to discharge Nutrition Monitoring and Evaluation: Behavioral-Environmental Outcomes: None Identified Food/Nutrient Intake Outcomes: Food and Nutrient Intake, Supplement Intake Physical Signs/Symptoms Outcomes: Biochemical Data, Chewing or Swallowing, GI Status, Fluid Status or Edema, Meal Time Behavior, Nutrition Focused Physical Findings, Skin, Weight Discharge Planning: Too soon to determine Lina Arteaga RD Contact: *[phone] [1] aspirin, 81 mg, Oral, Daily atorvastatin, 80 mg, Oral, Nightly citalopram, 10 mg, Oral, Daily enoxaparin, 30 mg, SubCUTAneous, Daily ferrous sulfate, 325 mg, Oral, Daily with breakfast gabapentin, 300 mg, Oral, BID insulin lispro, 0-6 Units, SubCUTAneous, TID WC And insulin lispro, 0-6 Units, SubCUTAneous, Nightly mirtazapine, 30 mg, Oral, Nightly piperacillin-tazobactam, 4,500 mg, IntraVENous, q6h sodium chloride 0.9%, 5-40 mL, IntraVENous, q12h stomahesive in petrolatum, , Topical, q8h vancomycin, 15 mg/kg, IntraVENous, q12h [2] sodium chloride, 100 mL/hr, Last Rate: 100 mL/hr (11/01/24 1216) [3] PRN medications: dextrose, dextrose, glucagon (rDNA), glucose, naloxone, oxyCODONE, polyethylene glycol (PEG) 3350, prochlorperazine, sodium chloride, sodium chloride, sodium chloride 0.9%, stomahesive in petrolatum [facility] 11-01-2024 Consult note Associated Order (s): IP CONSULT TO DIETITIAN; IP CONSULT TO DIETITIAN Nutrition Assessment Type and Reason for Visit: Initial, Positive Nutrition Screen, Consult (Gerhard nutritional subscore is less than equal to 2, poor po intake/appetite 5 or more days, wound, + 3 MST) Nutrition Recommendations/Plan: Patient is DNR:CC. Palliative care is following: Continue with regular diet. Consider easy to chew diet however pt mainly prefers soft foods. Per MNT protocol will send vanilla Ensure Plus HP at lunch and vanilla magic cup at dinner. PICC line removed due to infection. Per nursing facility paperwork, it appears patient was receiving TPN. She has an open abdominal fistula. Will monitor goals of care and appropriateness to resume TPN. Monitor weight, labs, I/O, skin assessment, BM, and overall nutritional status. RD will follow up. Malnutrition Assessment: Malnutrition Status: Severe malnutrition Context: Chronic Illness Findings of the 6 clinical characteristics of malnutrition: Energy Intake: No significant decrease in energy intake (Per nursing facility paperwork, patient was on TPN and mechanical soft, GI soft diet. Patient reports poor po intake over past couple of weeks. 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 female with past medical history hyperlipidemia, neuropathy, DM2, partial right foot amputation. Patient was sent from [facility] to [facility] for concerning findings on CT abdominal scan. Patient initially was sent to nursing home facility from [facility] for a partial amputation of her right foot. She had osteomyelitis. Patient was discharged on Zosyn and had a right PICC line placed. While in nursing home facility she completed her course of Zosyn for foot wound. That she then contracted pneumonia or started on IV Rocephin. That ended last week. Patient did have a elevated white count and positive blood cultures so they sent her to the hospital. Patient was found to have 2 abdominal abscesses and possible osteomyelitis. Patient currently has a sacral wound, left lower quadrant fistula draining purulent drainage, two left heel wounds and healing right partial foot amputation. She was started on antibiotics and admitted. CT A/P showed no abscess, mild bowel wall thickening and inflammation in the splenic flecture and fistulous tract in the LLQ. She required blood tx 6/ for hb 6.5. Palliative care is following- current code status: DNR:CCC. ID and wound care consulted. PICC line removed. RD spoke with patient this afternoon. She is hard of hearing. Appetite and po intake have been poor for the past couple of weeks. Patient reports only taking 4-5 bites as nothing tastes good. She is edentulous. She did not like that nursing facility cut her food into small pieces. She does not eat corn or beans as goes thru her. She prefers things like applesauce, ice cream, jello, soda, spaghetti, mac and cheese, chicken noodle soup. She drinks small cup of Boost once to twice per day. Does not like chocolate as goes right thru her. 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 She mentions receiving an expensive yellowish clear vitamin at facility. Per review of SNF paperwork, patient was on TPN as well as oral diet (mechanical soft, GI soft, and liberal consistent CHO). She reports her weight was 73# x 3 days. Her weight was 110#-120# x 8-9 months ago and involuntarily lost weight. Estimated Daily Nutrient Needs: Energy Requirements Based On: Kcal/kg Weight Used for Energy Requirements: Admission Weight for Energy Calculation (kg): 33.1 kg Total Energy Requirements (kcals/day): 2668-6666 kcals per day (32-38) Weight Used for Protein Requirements: Admission Weight in Kg Used for Protein Requirements: 33.1 kg Estimated Total Protein (g/day): 40-50 gm per day (1.2-1.5) Estimated Daily Total Fluid (ml/day): Per MD Nutrition Related Findings: Gerhard = 14, no edema, I/O: +240 (since admit), room service selective, CHER-AE HEIGHTS, oriented/disoriented Wound Type: Wound Consult Pending, Multiple (Per woud care: LLQ abdomen fistula - MASD d/t fecal incontinence; Rt foot NHSW (delayed closure); Rt heel unstageable pressure injury (POA); Lt calf venous ulcer (fat); Lt heel stage 3 pressure injury (POA); Sacral unstageable pressure injury (POA):) BMP: Recent Labs 10/31/24 1425 11/01/24 0037 NA 135* 135* K 4.0 3.9 CL 105 108* CO2 21* 21* BUN 9 8* CREATININE 0.46* 0.49* GLUCOSE 112 90 CALCIUM 7.6* 7.7* HEPATIC: Recent Labs 10/31/24 1425 AST 52* ALT 61* BILITOT 0.4 ALKPHOS 285* Lab Results Component Value Date HGBA1C 6.9 (H) 10/31/2024 Medications: Scheduled Meds[1] Continuous Meds[2] PRN Meds[3] Current Nutrition Therapies: Adult diet Regular Current Oral Intake Average Meal Intake: 1-25% Average Supplements Intake: None Ordered Anthropometric Measures: Height: 144.8 cm (4' 9.01") Admission Body Weight: 33.1 kg (73 lb) (stated on 10/31/24) Usual Body Weight: (Epic weight history is limited; per patient- 110-120# x 8-9 months ago) Hadley Body Weight (lbs) (Calculated): 94 lbs Hadley Body Weight (Kg) (Calculated): 43 kg Weight Adjustment For: No Adjustment BMI Categories: Underweight (BMI less than 22) age over 65 Nutrition Diagnosis: Severe malnutrition, In context of chronic illness related to increase demand for energy/nutrients, early satiety (abdominal fistula, multiple wounds, multiple hospitalizations) as evidenced by weight loss greater than or equal to 20% in 1 year, severe muscle loss, severe loss of subcutaneous fat Increased nutrient needs related to increase demand for energy/nutrients as evidenced by wounds, BMI, weight loss Nutrition Interventions: Nutrition Education/Counseling: No recommendation at this time Coordination of Nutrition Care: Continue to monitor while inpatient Goals: Goals: PO intake 50% or greater, prior to discharge Nutrition Monitoring and Evaluation: Behavioral-Environmental Outcomes: None Identified Food/Nutrient Intake Outcomes: Food and Nutrient Intake, Supplement Intake Physical Signs/Symptoms Outcomes: Biochemical Data, Chewing or Swallowing, GI Status, Fluid Status or Edema, Meal Time Behavior, Nutrition Focused Physical Findings, Skin, Weight Discharge Planning: Too soon to determine Lina Arteaga RD Contact: *[phone] [1] aspirin, 81 mg, Oral, Daily atorvastatin, 80 mg, Oral, Nightly citalopram, 10 mg, Oral, Daily enoxaparin, 30 mg, SubCUTAneous, Daily ferrous sulfate, 325 mg, Oral, Daily with breakfast gabapentin, 300 mg, Oral, BID insulin lispro, 0-6 Units, SubCUTAneous, TID WC And insulin lispro, 0-6 Units, SubCUTAneous, Nightly mirtazapine, 30 mg, Oral, Nightly piperacillin-tazobactam, 4,500 mg, IntraVENous, q6h sodium chloride 0.9%, 5-40 mL, IntraVENous, q12h stomahesive in petrolatum, , Topical, q8h vancomycin, 15 mg/kg, IntraVENous, q12h [2] sodium chloride, 100 mL/hr, Last Rate: 100 mL/hr (11/01/24 1216) [3] PRN medications: dextrose, dextrose, glucagon (rDNA), glucose, naloxone, oxyCODONE, polyethylene glycol (PEG) 3350, prochlorperazine, sodium chloride, sodium chloride, sodium chloride 0.9%, stomahesive in petrolatum Associated Order(s): IP CONSULT TO INFECTIOUS DISEASES Images from the original note were not included. [facility] - Infectious Diseases Attending Consult Note Reason for Consult: Possible infected PICC line, multiple wounds, abdominal abscess/fistula, possible pelvic oseomyelitis on previous imaging. History of Present Illness: 69 yo F, transferred form OSH for evaluaiton of abdominal fistula( apparently chronic, patient has been managing it for 5 years), as well as concern for PICC related infection, bacteremia, elevated WBC,, when she was transferred form ECF to OSH 3 days ago. She reports having R partial foot amputation for gangrene few months ack, on 08/17, and just finished prolonged IV antibiotic course. Afterwards, treated at [facility] for Pneumonia, and afterwards ? PICC-related infeciton. She denied pain to RUE site, or streaking, but admitted it wasn't cared for properly. Denied feer chills and malaise. Hermain issue remains pain to R foot and NWB status, though she believes wound is healing. Also developed several pressure ulcers to L heel, jules and sacral area. OSH records([facility]) not available and jani scant OR notes form admission at [facility] in her chart. On intake here, BC obtained + Klebsiella pneumoniae, and PICC was removed, catheter tip also + same pathogen. She is currentlyon Zosyn and ID consulted. Imaging also mentioned fistula to abdomen, she is not inclined to hae additional surgery for this issue at the moment. She denies feer, chills, malaise. + mild productive cough, improved from at week. Denies N/V/D. No ack pain. Patient is h kevin of hearing. NKDA Past Medical History: Medical History[1] Past Surgical History: Surgical History[2] Current Medications: Current Medications[3] Allergies: Allergies[4] Social History: Social History Socioeconomic History Marital status: Spouse name: Not on file Number of children: Not on file Years of education: Not on file Highest education level: Not on file Occupational History Not on file Tobacco Use Smoking status: Former Current packs/day: 0.00 Average packs/day: 2.0 packs/day for 65.0 years (130.0 ttl pk-yrs) Types: Cigarettes Start date: 1959 Quit date: 05/2024 Years since quittin.4 Smokeless tobacco: Never Substance and Sexual Activity Alcohol use: Never Drug use: Never Sexual activity: Not on file Other Topics Concern Not on file Social History Narrative Not on file Social Drivers of Health Financial Resource Strain: Not on file Food Insecurity: No Food Insecurity (10/31/2024) Hunger Vital Sign Worried About Running Out of Food in the Last Year: Never true Ran Out of Food in the Last Year: Never true Transportation Needs: No Transportation Needs (10/31/2024) PRAPARE - Transportation Lack of Transportation (Medical): No Lack of Transportation (Non-Medical): No Physical Activity: Not on file Stress: Not on file Social Connections: Not on file Intimate Partner Violence: Not At Risk (10/31/2024) Humiliation, Afraid, Rape, and Kick questionnaire Fear of Current or Ex-Partner: No Emotionally Abused: No Physically Abused: No Sexually Abused: No Housing Stability: Low Risk (10/31/2024) Housing Stability Vital Sign Unable to Pay for Housing in the Last Year: No Number of Times Moved in the Last Year: 1 Homeless in the Last Year: No Family History: Family History[5] Review of Systems: Review of Systems Constitutional: Negative for chills, fatigue and fever. Respiratory: Positive for cough. Negative for shortness of breath. Cardiovascular: Negative for chest pain and leg swelling. Gastrointestinal: Negative. Musculoskeletal: Negative for back pain and myalgias. Skin: Positive for wound. Neurological: Positive for numbness. Negative for weakness. Hematological: Does not bruise/bleed easily. Vitals: Patient Vitals for the past 24 hrs: BP Temp Temp src Pulse Resp SpO2 Height Weight 11/01/24 0805 (!) 89/38 36.6 C (97.8 F) Temporal 80 16 94 % -- -- 11/01/24 0706 -- -- -- -- -- -- 1.448 m (4' 9.01") -- 11/01/24 0705 (!) 91/50 36 C (96.8 F) Temporal 73 18 94 % -- -- 11/01/24 0442 (!) 97/41 (!) 35.8 C (96.4 F) Temporal 78 16 100 % -- -- 11/01/24 0423 (!) 92/44 36 C (96.8 F) Temporal 78 16 93 % -- -- 10/31/242018 104/52 36.2 C (97.2 F) Temporal 88 16 92 % -- -- 10/31/24 1132 -- -- -- -- -- -- 1.448 m (4' 9") 33.1 kg (73 lb) 10/31/24 1032 (!) 99/46 36.7 C (98 F) Temporal 94 18 94 % -- -- Physical Exam: Physical Exam Vitals reviewed. Constitutional: General: She is not in acute distress. Appearance: She is ill-appearing (chronic, frail, and hard of hearing). She is not toxic-appearing. HENT: Mouth/Throat: Mouth: Mucous membranes are moist. Pharynx: No oropharyngeal exudate (ederntulous). Eyes: General: Scleral icterus present. Extraocular Movements: Extraocular movements intact. Cardiovascular: Rate and Rhythm: Normal rate. Heart sounds: No murmur heard. Pulmonary: Effort: No respiratory distress. Breath sounds: Normal breath sounds. No wheezing or rales. Abdominal: General: There is no distension. Palpations: Abdomen is soft. Tenderness: There is no abdominal tenderness (LLQ with fistula ad muted erythema surrounding, not tender, no crepitus). Hernia: No hernia is present. Musculoskeletal: General: Signs of injury (R foot stump wrapped, photos reviewed instead, Heel drop splint on L, wound not exmained.) present. No swelling. Right lower leg: No edema. Left lower leg: No edema. Lymphadenopathy: Cervical: No cervical adenopathy. Skin: Findings: Bruising (scattered) present. No rash. Neurological: General: No focal deficit present. Mental Status: She is alert and oriented to person, place, and time. Motor: No weakness. Psychiatric: Thought Content: Thought content normal. Labs: Recent Labs 10/31/24 1425 11/01/24 0037 NA 135* 135* K 4.0 3.9 CL 105 108* CO2 21* 21* BUN 9 8* CREATININE 0.46* 0.49* GLUCOSE 112 90 CALCIUM 7.6* 7.7* PROT 5.4* -- BILITOT 0.4 -- ALKPHOS 285* -- AST 52* -- ALT 61* -- Recent Labs 10/31/24 1425 11/01/24 0037 11/01/24 0901 WBC 8.4 6.2 -- HGB 7.0* 6.5* 9.3* HCT 22.5* 21.0* 29.5* PLT 273 271 -- LYMPHOPCT 4* 9.3* -- MONOPCT 4* 14.3* -- BASOPCT -- 1.0 -- NEUTROABS -- 4.4 -- Micro: No results for input(s): "COVID19" in the last 72 hours. BC: Klebsiella pneumoniae 1 set Cath tip: Klebsiella pneumoniae Abd wall wound cx: polymicrobial gram stain, pending Lines: PIV Radiography/Echo/Other: reviewed 10/31 CTAP: mpression: 1. Small bilateral infiltrates and effusions, right greater than left. CT PELVIS: 3 mm axial cuts are obtained from the iliac crests through the symphysis pubis with 75 mL Isovue IV contrast. Dose reduction was employed with automated exposure control. There are no comparison studies at this institution. FINDINGS: Air and stool are noted in nondistended loops of colon to the level of the rectum. Bowel wall thickening and mild inflammation are noted in the splenic flexure of the left colon. This abuts the abdominal surface. A fistulous tract is thought present to the skin surface. There are no loculated collections to suggest an abscess. The small bowel is not dilated. There is no evidence of obstruction. The distal ureters and bladder are normal. No free fluid is seen within the pelvis. Sagittal reconstructed images of the spine demonstrate L1 and L2 compression fractures. The age of these fractures is uncertain. IMPRESSION: 1. Mild bowel wall thickening and inflammation in the splenic flexure of the left colon. 2. Fistulous tract to the skin surface in the left lower quadrant. 3. No loculated collections to suggest an abscess. 4. Small bilateral infiltrates and effusions, right greater than left. 5. L1 and L2 compression fractures. The age of these fractures is uncertain. CXR: Impression: Interstitial prominence, which may be secondary to pulmonary edema, atypical infection or may in part be chronic. Mild left basilar infiltrate also present. Follow-up recommended. Probable small right-sided pleural effusion. Antimicrobials,Start/End Dates: Vancomycin [facility]ptazo At [facility]- no records available Impression: 69 F ECF [id number] PVD, recent partial ray amputation for gangrene, an completed a course of IV antibiotics recently admitted with: Klebsiella Bacteremia, presumed from CLABSI( PICC) already removed and cath tip with same pathogen- alray on broad coverage. Multiple pressure ulcers, heel( unstageable), possible OM,- wound care for now, of loading Recent Pneumonia- already trated Chronic abdominal fistula- agree may not need acute management if present for 5 years already Severe malnutrition Debility Tboacco use, quit recently Overall not toxic-appearing Plan: Same regimen, and de-escalate as needed. Obtain OSH records and will reach out to F for pertinent labs and studies. Based on diagnoses and management, combination of acute and chronic problems, exacerbations and/or acuity, this visit should be considered to be of high complexity. Total time of 60 minutes on this day of encounter spent on, but not limited to review of tests, medical records , complex history , review of external medical records, paper and electronic, counseling and education (patient, family member, caregiver), and ordering medications, tests, and procedures. [1] History reviewed. No pertinent past medical history. [2] History reviewed. No pertinent surgical history. [3] Current Facility-Administered Medications Medication Dose Route Frequency Provider Last Rate Last Admin aspirin EC tablet 81 mg 81 mg Oral Daily Henry I Valeria, FUR FINISHER TAILOR - SECURITY SERGEANT 81 mg at 11/01/24 0824 atorvastatin (Lipitor) tablet 80 mg 80 mg Oral Nightly Henry I Valeria, FUR FINISHER TAILOR - SECURITY SERGEANT 80 mg at 10/31/242019 citalopram (CeleXA) tablet 10 mg 10 mg Oral Daily Henry I Valeria, FUR FINISHER TAILOR - SECURITY SERGEANT 10 mg at 11/01/24 0824 dextrose 5 % infusion 100 mL/hr IntraVENous PRN Henry I Valeria, FUR FINISHER TAILOR - SECURITY SERGEANT dextrose 50 % solution 12.5 g 12.5 g IntraVENous PRN Henry I Valeria, FUR FINISHER TAILOR - SECURITY SERGEANT enoxaparin (Lovenox) syringe 30 mg 30 mg SubCUTAneous Daily Henry I Valeria, FUR FINISHER TAILOR - SECURITY SERGEANT 30 mg at 11/01/24823 ferrous sulfate tablet 325 mg 325 mg Oral Daily with breakfast Henry Shaw APRN - KARLIE 325 mg at 11/01/24823 gabapentin (Neurontin) capsule 100 mg 100 mg Oral TID Henry Shaw APRN - SECURITY SERGEANT 100 mg at 11/01/24823 glucagon (human recombinant) injection 1 mg 1 mg IntraMUSCular PRN NIRMAL Orona CNP glucose oral gel 15 g 15 g Oral PRN NIRMAL Orona CNP Insulin Lispro (Humalog) injection 0-6 Units 0-6 Units SubCUTAneous TID WC NIRMAL Orona CNP And Insulin Lispro (Humalog) injection 0-6 Units 0-6 Units SubCUTAneous Nightly NIRMAL Orona CNP lactated ringers bolus 1,000 mL 1,000 mL IntraVENous Once Steven De La Cruz MD 500 mL/hr at 11/01/24823 1,000 mL at 11/01/24823 mirtazapine (Remeron) tablet 30 mg 30 mg Oral Nightly Henry Shaw APRN - KARLIE 30 mg at 10/31/242019 naloxone (Narcan) injection 0.4 mg 0.4 mg IntraVENous q5 min PRN Shey Trujillo MD oxyCODONE-acetaminophen (Percocet) 5-325 MG per tablet 1 tablet 1 tablet Oral q6h PRN Shey Trujillo MD 1 tablet at 11/01/24822 piperacillin-tazobactam (Zosyn) 4,500 mg in sodium chloride 0.9 % 100 mL IVPB Mini-Bag Plus 4,500 mg IntraVENous q6h NIRMAL Orona CNP 33.3 mL/hr at 11/01/2424 4,500 mg at 11/01/24823 polyethylene glycol (PEG) 3350 (Miralax) packet 17 g 17 g Oral Daily PRN Shey Trujillo MD prochlorperazine (Compazine) injection 5 mg 5 mg IntraVENous q6h PRN Shey Trujillo MD sodium chloride 0.9 % infusion 5-250 mL/hr IntraVENous PRN Shey Trujillo MD sodium chloride 0.9 % infusion 250 mL/hr IntraVENous PRN Zeferino Correia MD sodium chloride 0.9 % infusion 100 mL/hr IntraVENous Continuous Steven De La Cruz MD sodium chloride 0.9% (NS) flush 5-40 mL 5-40 mL IntraVENous q12h Shey Trujillo MD 10 mL at 10/31/242027 sodium chloride 0.9% (NS) flush 5-40 mL 5-40 mL IntraVENous PRN Shey Trujillo MD vancomycin (Vancocin) 500 mg in sodium chloride 0.9 % 100 mL IVPB 15 mg/kg IntraVENous q12h Steven De La Cruz MD [4] No Known Allergies [5] No family history on file. Images from the original note were not included. Pharmacy Managed Vancomycin Dosing Service Consult Note Consult Date: 10/31/24 Patient Name: Yoko Emanuel Allergies: Patient has no known allergies. Age: 69 y.o. Sex: female Estimated body mass index is 15.8 kg/m as calculated from the following: Height as of this encounter: 1.448 m (4' 9"). Weight as of this encounter: 33.1 kg (73 lb). DW: 33.1 kg No results found for: "CREATININE", "BUN", "WBC", "CRCLEARANCE"Calculated CrCl: *CrCl UNKNOWN because NO history of Scr in EMR. CMP ordered and pending collection.. Will follow.* Consulted By: Henry Shaw APRN-KARLIE Infectious Diagnosis: SSTI (AUC Goal 400-600 mg/L*hr) Random Vancomycin Level Due: 6/4 AM Antimicrobials: Patient recently received an antibiotic (last 12 hours) None Assessment/Plan: Doses, serum creatinine, and vancomycin levels interfaced automatically to [facility] and data has been analyzed and interpreted. Give Vancomycin 750mg IVPB x1 (~22.7mg/kg) to get vancomycin started in patient that has NO labs in EMR to prevent treatment delay. Will re-assess regimen when SCR collected and determine plan going forward. Will assess random level on 6/4 AM and adjust as appropriate. Trend serum creatinine. Orders placed. ADDENDUM: 10/31 106 Patient's physical chart had SCR from [facility] as paper copy. 10/30 SCR 0.38mg/dL. Ran patient's info in our AUC dosing program, but do not trust recs as patient is small (only 33.1kg) and is not typical population. Will enter intermittent dosing place fierro and check level in AM. Thank you for this consult. Please secure text or call with questions. DATE: 10/31/24 TIME: 2:24 PM Dasha Herman RPh Clinical Pharmacist Available via Secure Chat documented in this encounter [facility] 11-01-2024 Note Hospitalist Progress Note 11/01/2024 Subjective: Admit Date: 10/31/2024 PCP: No primary care provider on file. Room#: [id number] A BRIEF HOSPITAL COURSE: Yoko is a 69 y.o. female with past medical history below who presents with chief complaint listed above. Patient was sent from [facility] to [facility] for concerning findings on CT abdominal scan. Patient initially was sent to nursing home facility from [facility] for a partial amputation of her right foot. She had osteomyelitis. Patient was discharged on Zosyn and had a right PICC line placed. While in nursing home facility she completed her course of Zosyn for foot wound. That she then contracted pneumonia or started on IV Rocephin. That ended last week. Patient did have a elevated white count and positive blood cultures so they sent her to the hospital. Patient was found to have 2 abdominal abscesses and possible osteomyelitis. Patient currently has a sacral wound, left lower quadrant fistula draining purulent drainage, two leftheel wounds and healing right partial foot amputation. She was started on antibiotics and admitted. CT A/P showed no abscess, mild bowel wall thickening and inflammation in the splenic flecture and fistulous tract in the LLQ. She required blood tx 11/01 for hb 6.5. Interval History: 11/02: She c/o granulized pain and fatigue. No CP or SOB. No overnight issues. Case and plan discussed with patient and bedside nurse. All questions answered. Adult diet Regular 24HR INTAKE/OUTPUT: Intake/Output Summary (Last 24 hours) at 11/01/2024 1304 Last data filed at 11/01/2024 1216 Gross per 24 hour Intake 1735 ml Output -- Net 1735 ml Past Medical History: Medical History[1] LABS: CBC: Recent Labs 10/31/24 1425 11/01/24 0037 11/01/24 0901 WBC 8.4 6.2 -- RBC 3.14* 2.94* -- HGB 7.0* 6.5* 9.3* HCT 22.5* 21.0* 29.5* MCV 71.7* 71.4* -- RDW 17.8* 17.8* -- PLT 273 271 -- BMP: Recent Labs 10/31/24 1425 11/01/24 0037 NA 135* 135* K 4.0 3.9 CL 105 108* CO2 21* 21* BUN 9 8* CREATININE 0.46* 0.49* GLUCOSE 112 90 CALCIUM 7.6* 7.7* ANIONGAP 9 6 LIVER PROFILE: Recent Labs 10/31/24 1425 AST 52* ALT 61* BILITOT 0.4 ALKPHOS 285* PROT 5.4* PT/INR: No results for input(s): "PROTIME", "INR" in the last 72 hours. CARDIAC ENZYMES: No results for input(s): "TROPONINI" in the last 72 hours. Procalcitonin: No results found for: "PROCAL" COVID-19 PCR: No results for input(s): "COVID19" in the last 72 hours. Objective: Vitals: BP (!) 98/36 Pulse 81 Temp 36.6 ?C (97.8 ?F) (Temporal) Resp 16 Ht 4' 9.01" (1.448 m) Wt 73 lb (33.1 kg) SpO2 94% BMI 15.79 kg/m? Pulse Ox: SpO2 Av.6 % Min: 92 % Max: 100 % Supplemental O2: Physical Exam Vitals reviewed. Constitutional: General: She is not in acute distress. Comments: Chronicially ill appearing, thin, pleasant, non-labored breathing Cardiovascular: Rate and Rhythm: Normal rate and regular rhythm. Pulmonary: Effort: Pulmonary effort is normal. Breath sounds: Normal breath sounds. Abdominal: General: Bowel sounds are normal. Palpations: Abdomen is soft. Tenderness: There is no abdominal tenderness. Musculoskeletal: Comments: Toe amputations noted, fistula site ntoed Skin: Comments: Heel wound and toe amputations noted Neurological: General: No focal deficit present. Mental Status: She is alert and oriented to person, place, and time. 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 Sacral pressure injury Right heel pressure injury Left heel pressure injury Left Achilles pressure injury Acute anemia Stable chronic problems affecting care, new non-acute diagnoses: Hyperlipidemia Neuropathy Diabetes mellitus type 2 Plan As a result of the above findings & factors, the following mgmt was pursued: - ID consult - vancomycin and zosyn 10/31 - home medications - lópez cultures - PICC removed - IVF - follow lower BP - consult pall care - consult wound care - fecal occult - am labs, replace lytes prn - PT/OT/CM/SW - delirium precautions: increase activity - DVT prophylaxis: enoxaparin and encourage ambulation Complexity: Acute illness with systemic symptoms (MOD). Risk: Low risk diagnostic testing or treatment (LOW). Advance Directive: DNR-CC Anticipated Discharge - Date - TBD - Location - Skilled Facility - Pending the following - clinical course, Cx results, M[employer]ers [employer] Acquisitions Attorney recommendations Total time spent (which include face to face and non face to face encounters) : 45 minutes Toxic drug monitori (more content not included)... [facility] 11-01-2024 History of Presen t illness Narrative Hospitalist Progress Note 11/01/2024 Subjective: Admit Date: 10/31/2024 PCP: No primary care provider on file. Room#: [id number] A BRIEF HOSPITAL COURSE: Yoko is a 69 y.o. female with past medical history below who presents with chief complaint listed above. Patient was sent from [facility] to [facility] for concerning findings on CT abdominal scan. Patient initially was sent to nursing home facility from [facility] for a partial amputation of her right foot. She had osteomyelitis. Patient was discharged on Zosyn and had a right PICC line placed. While in nursing home facility she completed her course of Zosyn for foot wound. That she then contracted pneumonia or started on IV Rocephin. That ended last week. Patient did have a elevated white count and positive blood cultures so they sent her to the hospital. Patient was found to have 2 abdominal abscesses and possible osteomyelitis. Patient currently has a sacral wound, left lower quadrant fistula draining purulent drainage, two left heel wounds and healing right partial foot amputation. She was started on antibiotics and admitted. CT A/P showed no abscess, mild bowel wall thickening and inflammation in the splenic flecture and fistulous tract in the LLQ. She required blood tx 11/01 for hb 6.5. Interval History: 11/02: She c/o granulized pain and fatigue. No CP or SOB. No overnight issues. Case and plan discussed with patient and bedside nurse. All questions answered. Adult diet Regular 24HR INTAKE/OUTPUT: Intake/Output Summary (Last 24 hours) at 11/01/2024 1304 Last data filed at 11/01/2024 1216 Gross per 24 hour Intake 1735 ml Output -- Net 1735 ml Past Medical History: Medical History[1] LABS: CBC: Recent Labs 10/31/24 1425 11/01/24 0037 11/01/24 0901 WBC 8.4 6.2 -- RBC 3.14* 2.94* -- HGB 7.0* 6.5* 9.3* HCT 22.5* 21.0* 29.5* MCV 71.7* 71.4* -- RDW 17.8* 17.8* -- PLT 273 271 -- BMP: Recent Labs 10/31/24 1425 11/01/24 0037 NA 135* 135* K 4.0 3.9 CL 105 108* CO2 21* 21* BUN 9 8* CREATININE 0.46* 0.49* GLUCOSE 112 90 CALCIUM 7.6* 7.7* ANIONGAP 9 6 LIVER PROFILE: Recent Labs 10/31/24 1425 AST 52* ALT 61* BILITOT 0.4 ALKPHOS 285* PROT 5.4* PT/INR: No results for input(s): "PROTIME", "INR" in the last 72 hours. CARDIAC ENZYMES: No results for input(s): "TROPONINI" in the last 72 hours. Procalcitonin: No results found for: "PROCAL" COVID-19 PCR: No results for input(s): "COVID19" in the last 72 hours. Objective: Vitals: BP (!) 98/36 Pulse 81 Temp 36.6 C (97.8 F) (Temporal) Resp 16 Ht 4' 9.01" (1.448 m) Wt 73 lb (33.1 kg) SpO2 94% BMI 15.79 kg/m Pulse Ox: SpO2 Av.6 % Min: 92 % Max: 100 % Supplemental O2: Physical Exam Vitals reviewed. Constitutional: General: She is not in acute distress. Comments: Chronicially ill appearing, thin, pleasant, non-labored breathing Cardiovascular: Rate and Rhythm: Normal rate and regular rhythm. Pulmonary: Effort: Pulmonary effort is normal. Breath sounds: Normal breath sounds. Abdominal: General: Bowel sounds are normal. Palpations: Abdomen is soft. Tenderness: There is no abdominal tenderness. Musculoskeletal: Comments: Toe amputations noted, fistula site ntoed Skin: Comments: Heel wound and toe amputations noted Neurological: General: No focal deficit present. Mental Status: She is alert and oriented to person, place, and time. 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 Sacral pressure injury Right heel pressure injury Left heel pressure injury Left Achilles pressure injury Acute anemia Stable chronic problems affecting care, new non-acute diagnoses: Hyperlipidemia Neuropathy Diabetes mellitus type 2 Plan As a result of the above findings & factors, the following mgmt was pursued: - ID consult - vancomycin and zosyn 6/3 - home medications - lópez cultures - PICC removed - IVF - follow lower BP - consult pall care - consult wound care - fecal occult - am labs, replace lytes prn - PT/OT/CM/SW - delirium precautions: increase activity - DVT prophylaxis: enoxaparin and encourage ambulation Complexity: Acute illness with systemic symptoms (MOD). Risk: Low risk diagnostic testing or treatment (LOW). Advance Directive: DNR-CC Anticipated Discharge - Date - TBD - Location - Skilled Facility - Pending the following - clinical course, Cx results, Merg[employer] Acquis[employer] Attorney recommendations Total time spent (which include face to face and non face to face encounters) : 45 minutes Toxic drug monitoring/narrow therapeutic index drug monitoring : # Drug name : N/A # Route administered : N/A # Method of monitoring : N/A Extended Emergency Contact Information Primary Emergency Contact: Sean Mccann Mobile Relation: Hunter Steven De La Cruz MD Division of Hospitalist Medicine [facility] [1] History reviewed. No pertinent past medical history. [2] aspirin, 81 mg, Oral, Daily atorvastatin, 80 mg, Oral, Nightly citalopram, 10 mg, Oral, Daily enoxaparin, 30 mg, SubCUTAneous, Daily ferrous sulfate, 325 mg, Oral, Daily with breakfast gabapentin, 100 mg, Oral, TID insulin lispro, 0-6 Units, SubCUTAneous, TID WC And insulin lispro, 0-6 Units, SubCUTAneous, Nightly mirtazapine, 30 mg, Oral, Nightly piperacillin-tazobactam, 4,500 mg, IntraVENous, q6h sodium chloride 0.9%, 5-40 mL, IntraVENous, q12h stomahesive in petrolatum, , Topical, q8h vancomycin, 15 mg/kg, IntraVENous, q12h [3] PRN medications: dextrose, dextrose, glucagon (rDNA), glucose, naloxone, oxyCODONE-acetaminophen, polyethylene glycol (PEG) 3350, prochlorperazine, sodium chloride, sodium chloride, sodium chloride 0.9%, stomahesive in petrolatum [4] sodium chloride, 100 mL/hr, Last Rate: 100 mL/hr (11/01/24 1216) Pharmacy to Dose Vancomycin - Progress Note Lab Results Component Value Date CREATININE 0.49 (L) 11/01/2024 BUN 8 (L) 11/01/2024 WBC 6.2 11/01/2024 VANCOTROUGH 17.3 11/01/2024 Doses, serum creatinine, and vancomycin levels interfaced automatically to [facility] and data has been analyzed and interpreted. Infectious Diagnosis: SSTI Est CrCl: 56 mL/min (Cockcroft-Gault) Assessment: Pulse dosing Plan: Is the current dose therapeutic? [] Yes [x] No - change current regimen to vancomycin 500 mg every 12 hours (15 mg/kg) for predicted AUC 505 mg/L*hr, PAUC = 885% , and Pconc* = 15%. Obtain next level on 11/02. Trend serum creatinine. Trend AUC using Bayesian Modeling. Orders placed. DATE: 11/01/24 TIME: 7:39 AM Keke Patiño PharmD Clinical Pharmacist Available via Secure Chat [facility] ADMISSION MEDICATION RECONCILIATION Date: 10/31/24 Room:[facility] A Patient Name: Yoko Emanuel Allergies: Patient has no known allergies. Age: 69 y.o. Sex: female Note: New information has been obtained regarding the patient s medications. The medication reconciliation has been updated to reflect this. Please consider making these changes/additions if appropriate: Recommendations: *FYI* - updated home med list based on paper med list from patient's [facility] SNF med list. Home medications to restart if there is not a current contraindication: Heparin 5000units subcutaneous BID (Lovenox 30mg subcutaneous qday ordered as inpatient) Tylenol 650mg PO/GA q4h PRN Zinc Sulfate 220mg BID *FYI* - patient receives Clinimix TPN 10 hours/day at SNF prior to admission, consider consulting Dr. Hart for TPN evaluation while admitted? Please page/call with questions. Date: 10/31/24 Time: 3:12 PM 10/31/2024 3:15 PM Dasha Herman, PharmKaren documented in this encounter [facility] 11-01-2024 Note Problem: Knowledge D eficit Goal: Patient/family/caregiver demonstrates understanding of disease process, treatment plan, medications, and discharge instructions Outcome: Progressing [facility] 11-01-2024 Plan of care note Problem: Knowledge Deficit Goal: Patient/family/caregiver demonstrates understanding of disease process, treatment plan, medications, and discharge instructions Outcome: Progressing [facility] 11-01-2024 Miscellaneous Notes Problem: Knowledge Deficit Goal: Patient/family/caregiver demonstrates understanding of disease process, treatment plan, medications, and discharge instructions Outcome: Progressing Return Referral placed to [facility] via [facility] per [facility] request. Await review and response regarding ability to accept. TCC notified. [facility] PROGRESS NOTE: 69 yo female was a transfer from [facility]. She is from [facility]. [facility] asked [facility] to [facility] referral for return. Pt admitted for picc line infection. Pt has extensive medical hx including recent partial foot amputation for osteomyelitis. She was sent to snf on retirement iv abx therapy. Pt is now on iv zosyn and vancomycin with concern for abd abscesses and continued osteomyelitis. ID has been consulted along with wound care, palliative care and SW. Plan to remove picc line and culture and use peripheral iv for now. Plan for CT abd/pelvis with contrast and multiple labs including blood cultures. Anticipate therapy evals and return to snf when medically stable. Problem: Knowledge Deficit Goal: Patient/family/caregiver demonstrates understanding of disease process, treatment plan, medications, and discharge instructions 11/01/2024 0243 by Gissell Jean Baptiste RN Outcome: Progressing 11/01/2024 0134 by Gissell Jean Baptiste RN Outcome: Progressing Problem: Potential for Compromised Skin Integrity Goal: Skin Integrity is Maintained or Improved 11/01/2024 0243 by Gissell Jean Baptiste RN Outcome: Progressing 11/01/2024 0134 by Gissell Jean Baptiste RN Outcome: Progressing Problem: Potential for Compromised Skin Integrity Goal: Nutritional status is improving 11/01/2024 0243 by Gissell Jean Baptiste RN Outcome: Progressing Problem: Knowledge Deficit Goal: Patient/family/caregiver demonstrates understanding of disease process, treatment plan, medications, and discharge instructions Outcome: Progressing Problem: Potential for Compromised Skin Integrity Goal: Skin Integrity is Maintained or Improved Outcome: Progressing Goal: Nutritional status is improving Outcome: Progressing Problem: Urinary Incontinence Goal: Perineal skin integrity is maintained or improved Outcome: Progressing Problem: Knowledge Deficit Goal: Patient/family/caregiver demonstrates understanding of disease process, treatment plan, medications, and discharge instructions Outcome: Progressing Problem: Potential for Compromised Skin Integrity Goal: Skin Integrity is Maintained or Improved Outcome: Progressing Goal: Nutritional status is improving Outcome: Progressing Problem: Urinary Incontinence Goal: Perineal skin integrity is maintained or improved Outcome: Progressing documented in this encounter [facility] 11-01-2024 Note Formatting of this n ote might be different from the original. Return Referral placed to [facility] via [facility] per [facility] request. Await review and response regarding ability to accept. TCC notified. [facility] 11-01-2024 Note Formatting of this n ote might be different from the original. Return Referral placed to [facility] via [facility] per [facility] request. Await review and response regarding ability to accept. TCC notified. [facility] 11-01-2024 Note Return Referral plac ed to [facility] via [facility] per [facility] request. Await review and response regarding ability to accept. TCC notified. [facility] 11-01-2024 Note Formatting of this n ote might be different from the original. [facility] PROGRESS NOTE: 69 yo female was a transfer from [facility]. She is from [facility]. [facility] asked family life counselor to place referral for return. Pt admitted for picc line infection. Pt has extensive medical hx including recent partial foot amputation for osteomyelitis. 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 Pt is now on iv zosyn and vancomycin with concern for abd abscesses and continued osteomyelitis. ID has been consulted along with wound care, palliative care and SW. Plan to remove picc line and culture and use peripheral iv for now. Plan for CT abd/pelvis with contrast and multiple labs including blood cultures. Anticipate therapy evals and return to snf when medically stable. [facility] 11-01-2024 Note Formatting of this n ote might be different from the original. [facility] PROGRESS NOTE: 69 yo female was a transfer from [facility]. She is from [facility]. [facility] asked [facility] to [facility] referral for return. Pt admitted for picc line infection. Pt has extensive medical hx including recent partial foot amputation for osteomyelitis. She was sent to snf on retirement iv abx therapy. Pt is now on iv zosyn and vancomycin with concern for abd abscesses and continued osteomyelitis. ID has been consulted along with wound care, palliative care and SW. Plan to remove picc line and culture and use peripheral iv for now. Plan for CT abd/pelvis with contrast and multiple labs including blood cultures. Anticipate therapy evals and return to snf when medically stable. [facility] 11-01-2024 Note [facility] PROGRESS NOTE: 69 yo female was a transfer from [facility]. She is from [facility]. [facility] asked [facility] to [facility] referral for return. Pt admitted for picc line infection. Pt has extensive medical hx including recent partial foot amputation for osteomyelitis. She was sent to snf on retirement iv abx therapy. Pt is now on iv zosyn and vancomycin with concern for abd abscesses and continued osteomyelitis. ID has been consulted along with wound care, palliative care and SW. Plan to remove picc line and culture and use peripheral iv for now. Plan for CT abd/pelvis with contrast and multiple labs including blood cultures. Anticipate therapy evals and return to snf when medically stable. [facility] 11-01-2024 Consult note Associated Order (s): IP CONSULT TO INFECTIOUS DISEASES Images from the original note were not included. [facility] - Infectious Diseases Attending Consult Note Reason for Consult: Possible infected PICC line, multiple wounds, abdominal abscess/fistula, possible pelvic oseomyelitis on previous imaging. History of Present Illness: 69 yo F, transferred form [facility] for evaluaiton of abdominal fistula( apparently chronic, patient has been managing it for 5 years), as well as concern for PICC related infection, bacteremia, elevated WBC,, when she was transferred form [facility] to OSH 3 days ago. She reports having R partial foot amputation for gangrene few months ack, on 08/17, and just finished prolonged IV antibiotic course. Afterwards, treated at F for Pneumonia, and afterwards ? PICC-related infeciton. She denied pain to RUE site, or streaking, but admitted it wasn't cared for properly. Denied feer chills and malaise. Hermain issue remains pain to R foot and NWB status, though she believes wound is healing. Also developed several pressure ulcers to L heel, jules and sacral area. OSH records([facility]) not available and jani scant OR notes form admission at [facility] in her chart. On intake here, BC obtained + Klebsiella pneumoniae, and PICC was removed, catheter tip also + same pathogen. She is currentlyon Zosyn and ID consulted. Imaging also mentioned fistula to abdomen, she is not inclined to hae additional surgery for this issue at the moment. She denies feer, chills, malaise. + mild productive cough, improved from at week. Denies N/V/D. No ack pain. Patient is h kevin of hearing. NKDA Past Medical History: Medical History[1] Past Surgical History: Surgical History[2] Current Medications: Current Medications[3] Allergies: Allergies[4] Social History: Social History Socioeconomic History Marital status: Spouse name: Not on file Number of children: Not on file Years of education: Not on file Highest education level: Not on file Occupational History Not on file Tobacco Use Smoking status: Former Current packs/day: 0.00 Average packs/day: 2.0 packs/day for 65.0 years (130.0 ttl pk-yrs) Types: Cigarettes Start date: 1959 Quit date: 05/2024 Years since quittin.4 Smokeless tobacco: Never Substance and Sexual Activity Alcohol use: Never Drug use: Never Sexual activity: Not on file Other Topics Concern Not on file Social History Narrative Not on file Social Drivers of Health Financial Resource Strain: Not on file Food Insecurity: No Food Insecurity (10/31/2024) Hunger Vital Sign Worried About Running Out of Food in the Last Year: Never true Ran Out of Food in the Last Year: Never true Transportation Needs: No Transportation Needs (10/31/2024) PRAPARE - Transportation Lack of Transportation (Medical): No Lack of Transportation (Non-Medical): No Physical Activity: Not on file Stress: Not on file Social Connections: Not on file Intimate Partner Violence: Not At Risk (10/31/2024) Humiliation, Afraid, Rape, and Kick questionnaire Fear of Current or Ex-Partner: No Emotionally Abused: No Physically Abused: No Sexually Abused: No Housing Stability: Low Risk (10/31/2024) Housing Stability Vital Sign Unable to Pay for Housing in the Last Year: No Number of Times Moved in the Last Year: 1 Homeless in the Last Year: No Family History: Family History[5] Review of Systems: Review of Systems Constitutional: Negative for chills, fatigue and fever. Respiratory: Positive for cough. Negative for shortness of breath. Cardiovascular: Negative for chest pain and leg swelling. Gastrointestinal: Negative. Musculoskeletal: Negative for back pain and myalgias. Skin: Positive for wound. Neurological: Positive for numbness. Negative for weakness. Hematological: Does not bruise/bleed easily. Vitals: Patient Vitals for the past 24 hrs: BP Temp Temp src Pulse Resp SpO2 Height Weight 11/01/24 0805 (!) 89/38 36.6 C (97.8 F) Temporal 80 16 94 % -- -- 11/01/24 0706 -- -- -- -- -- -- 1.448 m (4' 9.01") -- 11/01/24 0705 (!) 91/50 36 C (96.8 F) Temporal 73 18 94 % -- -- 11/01/24 0442 (!) 97/41 (!) 35.8 C (96.4 F) Temporal 78 16 100 % -- -- 11/01/24 0423 (!) 92/44 36 C (96.8 F) Temporal 78 16 93 % -- -- 10/31/242018 104/52 36.2 C (97.2 F) Temporal 88 16 92 % -- -- 10/31/24 1132 -- -- -- -- -- -- 1.448 m (4' 9") 33.1 kg (73 lb) 10/31/24 1032 (!) 99/46 36.7 C (98 F) Temporal 94 18 94 % -- -- Physical Exam: Physical Exam Vitals reviewed. Constitutional: General: She is not in acute distress. Appearance: She is ill-appearing (chronic, frail, and hard of hearing). She is not toxic-appearing. HENT: Mouth/Throat: Mouth: Mucous membranes are moist. Pharynx: No oropharyngeal exudate (ederntulous). Eyes: General: Scleral icterus present. Extraocular Movements: Extraocular movements intact. Cardiovascular: Rate and Rhythm: Normal rate. Heart sounds: No murmur heard. Pulmonary: Effort: No respiratory distress. Breath sounds: Normal breath sounds. No wheezing or rales. Abdominal: General: There is no distension. Palpations: Abdomen is soft. Tenderness: There is no abdominal tenderness (LLQ with fistula ad muted erythema surrounding, not tender, no crepitus). Hernia: No hernia is present. Musculoskeletal: General: Signs of injury (R foot stump wrapped, photos reviewed instead, Heel drop splint on L, wound not exmained.) present. No swelling. Right lower leg: No edema. Left lower leg: No edema. Lymphadenopathy: Cervical: No cervical adenopathy. Skin: Findings: Bruising (scattered) present. No rash. Neurological: General: No focal deficit present. Mental Status: She is alert and oriented to person, place, and time. Motor: No weakness. Psychiatric: Thought Content: Thought content normal. Labs: Recent Labs 10/31/24 14211/01/24 0037 NA 135* 135* K 4.0 3.9 CL 105 108* CO2 21* 21* BUN 9 8* CREATININE 0.46* 0.49* GLUCOSE 112 90 CALCIUM 7.6* 7.7* PROT 5.4* -- BILITOT 0.4 -- ALKPHOS 285* -- AST 52* -- ALT 61* -- Recent Labs 10/31/24 1425 11/01/24 0037 11/01/24 0901 WBC 8.4 6.2 -- HGB 7.0* 6.5* 9.3* HCT 22.5* 21.0* 29.5* PLT 273 271 -- LYMPHOPCT 4* 9.3* -- MONOPCT 4* 14.3* -- BASOPCT -- 1.0 -- NEUTROABS -- 4.4 -- Micro: No results for input(s): "COVID19" in the last 72 hours. BC: Klebsiella pneumoniae 1 set Cath tip: Klebsiella pneumoniae Abd wall wound cx: polymicrobial gram stain, pending Lines: PIV Radiography/Echo/Other: reviewed 10/31 CTAP: mpression: 1. Small bilateral infiltrates and effusions, right greater than left. CT PELVIS: 3 mm axial cuts are obtained from the iliac crests through the symphysis pubis with 75 mL Isovue IV contrast. Dose reduction was employed with automated exposure control. There are no comparison studies at this institution. FINDINGS: Air and stool are noted in nondistended loops of colon to the level of the rectum. Bowel wall thickening and mild inflammation are noted in the splenic flexure of the left colon. This abuts the abdominal surface. A fistulous tract is thought present to the skin surface. There are no loculated collections to suggest an abscess. The small bowel is not dilated. There is no evidence of obstruction. The distal ureters and bladder are normal. No free fluid is seen within the pelvis. Sagittal reconstructed images of the spine demonstrate L1 and L2 compression fractures. The age of these fractures is uncertain. IMPRESSION: 1. Mild bowel wall thickening and inflammation in the splenic flexure of the left colon. 2. Fistulous tract to the skin surface in the left lower quadrant. 3. No loculated collections to suggest an abscess. 4. Small bilateral infiltrates and effusions, right greater than left. 5. L1 and L2 compression fractures. The age of these fractures is uncertain. CXR: Impression: Interstitial prominence, which may be secondary to pulmonary edema, atypical infection or may in part be chronic. Mild left basilar infiltrate also present. Follow-up recommended. Probable small right-sided pleural effusion. Antimicrobials,Start/End Dates: Vancomycin PIptazo At ECF- no records available Impression: 69 F ECF [id number] PVD, recent partial ray amputation for gangrene, an completed a course of IV antibiotics recently admitted with: Klebsiella Bacteremia, presumed from CLABSI( PICC) already removed and cath tip with same pathogen- alray on broad coverage. Multiple pressure ulcers, heel( unstageable), possible OM,- wound care for now, of loading Recent Pneumonia- already trated Chronic abdominal fistula- agree may not need acute management if present for 5 years already Severe malnutrition Debility Tboacco use, quit recently Overall not toxic-appearing Plan: Same regimen, and de-escalate as needed. Obtain OSH records and will reach out to F for pertinent labs and studies. Based on diagnoses and management, combination of acute and chronic problems, exacerbations and/or acuity, this visit should be considered to be of high complexity. Total time of 60 minutes on this day of encounter spent on, but not limited to review of tests, medical records , complex history , review of external medical records, paper and electronic, counseling and education (patient, family member, caregiver), and ordering medications, tests, and procedures. [1] History reviewed. No pertinent past medical history. [2] History reviewed. No pertinent surgical history. [3] Current Facility-Administered Medications Medication Dose Route Frequency Provider Last Rate Last Admin aspirin EC tablet 81 mg 81 mg Oral Daily Henry Shaw FUR FINISHER TAILOR - SECURITY SERGEANT 81 mg at 11/01/24823 atorvastatin (Lipitor) tablet 80 mg 80 mg Oral Nightly Henry I Valeria, FUR FINISHER TAILOR - SECURITY SERGEANT 80 mg at 10/31/242019 citalopram (CeleXA) tablet 10 mg 10 mg Oral Daily Henry I Valeria, FUR FINISHER TAILOR - SECURITY SERGEANT 10 mg at 11/01/24823 dextrose 5 % infusion 100 mL/hr IntraVENous PRN Henry Sahw FUR FINISHER TAILOR - SECURITY SERGEANT dextrose 50 % solution 12.5 g 12.5 g IntraVENous PRN Henry Shaw FUR FINISHER TAILOR - SECURITY SERGEANT enoxaparin (Lovenox) syringe 30 mg 30 mg SubCUTAneous Daily Henry Shaw FUR FINISHER TAILOR - SECURITY SERGEANT 30 mg at 11/01/24823 ferrous sulfate tablet 325 mg 325 mg Oral Daily with breakfast Henry Shaw FUR FINISHER TAILOR - SECURITY SERGEANT 325 mg at 11/01/24823 gabapentin (Neurontin) capsule 100 mg 100 mg Oral TID Henry Shaw FUR FINISHER TAILOR - SECURITY SERGEANT 100 mg at 11/01/24823 glucagon (human recombinant) injection 1 mg 1 mg IntraMUSCular PRN Henry Raul Shaw, FUR FINISHER TAILOR - SECURITY SERGEANT glucose oral gel 15 g 15 g Oral PRN Henry Shaw FUR FINISHER TAILOR - SECURITY SERGEANT Insulin Lispro (Humalog) injection 0-6 Units 0-6 Units SubCUTAneous TID Henry Shaw APRN - KARLIE And Insulin Lispro (Humalog) injection 0-6 Units 0-6 Units SubCUTAneous Nightly NIRMAL Orona CNP lactated ringers bolus 1,000 mL 1,000 mL IntraVENous Once Steven De La Cruz MD 500 mL/hr at 11/01/24 0824 1,000 mL at 11/01/24 0824 mirtazapine (Remeron) tablet 30 mg 30 mg Oral Nightly NIRMAL Orona CNP 30 mg at 10/31/242019 naloxone (Narcan) injection 0.4 mg 0.4 mg IntraVENous q5 min PRN Shey Trujillo MD oxyCODONE-acetaminophen (Percocet) 5-325 MG per tablet 1 tablet 1 tablet Oral q6h PRN Shey Trujillo MD 1 tablet at 11/01/24 0823 piperacillin-tazobactam (Zosyn) 4,500 mg in sodium chloride 0.9 % 100 mL IVPB Mini-Bag Plus 4,500 mg IntraVENous q6h NIRMAL Orona CNP 33.3 mL/hr at 11/01/24 0824 4,500 mg at 11/01/24 0824 polyethylene glycol (PEG) 3350 (Miralax) packet 17 g 17 g Oral Daily PRN Shey Trujillo MD prochlorperazine (Compazine) injection 5 mg 5 mg IntraVENous q6h PRN Shey Trujillo MD sodium chloride 0.9 % infusion 5-250 mL/hr IntraVENous PRN Shey Trujillo MD sodium chloride 0.9 % infusion 250 mL/hr IntraVENous PRN Zeferino Correia MD sodium chloride 0.9 % infusion 100 mL/hr IntraVENous Continuous Steven De La Cruz MD sodium chloride 0.9% (NS) flush 5-40 mL 5-40 mL IntraVENous q12h Shey Trujillo MD 10 mL at 10/31/242027 sodium chloride 0.9% (NS) flush 5-40 mL 5-40 mL IntraVENous PRN Shey Trujillo MD vancomycin (Vancocin) 500 mg in sodium chloride 0.9 % 100 mL IVPB 15 mg/kg IntraVENous q12h Steven De La Cruz MD [4] No Known Allergies [5] No family history on file. [facility] Work Phone: 11-01-2024 Note Pharmacy to Dose Roberth rader - Progress Note Lab Results Component Value Date CREATININE 0.49 (L) 11/01/2024 BUN 8 (L) 11/01/2024 WBC 6.2 11/01/2024 VANCOTROUGH 17.3 11/01/2024 Doses, serum creatinine, and vancomycin levels interfaced automatically to [facility] and data has been analyzed and interpreted. Infectious Diagnosis: SSTI Est CrCl: 56 mL/min (Cockcroft-Gault) Assessment: Pulse dosing Plan: Is the current dose therapeutic? [] Yes [x] No - change current regimen to vancomycin 500 mg every 12 hours (15 mg/kg) for predicted AUC 505 mg/L*hr, PAUC = 885% , and Pconc* = 15%. Obtain next level on 11/02. Trend serum creatinine. Trend AUC using Bayesian Modeling. Orders placed. DATE: 11/01/24 TIME: 7:39 AM Keke Patiño PharmD Clinical Pharmacist Available via Secure Chat [facility] 11-01-2024 Plan of care note Problem: Knowledge Deficit Goal: Patient/family/caregiver demonstrates understanding of disease process, treatment plan, medications, and discharge instructions 11/01/2024242 by Gissell Jean Baptiste RN Outcome: Progressing 11/01/2024133 by Gissell Jean Baptiste RN Outcome: Progressing Problem: Potential for Compromised Skin Integrity Goal: Skin Integrity is Maintained or Improved 11/01/2024242 by Gissell Jean Baptiste RN Outcome: Progressing 11/01/2024133 by Gissell Jean Baptiste RN Outcome: Progressing Problem: Potential for Compromised Skin Integrity Goal: Nutritional status is improving 11/01/2024242 by Gissell Jean Baptiste RN Outcome: Progressing T [facility] 11-01-2024 Plan of care note Problem: Knowledge Deficit Goal: Patient/family/caregiver demonstrates understanding of disease process, treatment plan, medications, and discharge instructions Outcome: Progressing Problem: Potential for Compromised Skin Integrity Goal: Skin Integrity is Maintained or Improved Outcome: Progressing Goal: Nutritional status is improving Outcome: Progressing Problem: Urinary Incontinence Goal: Perineal skin integrity is maintained or improved Outcome: Progressing T [facility] 10-31-2024 Plan of care note Problem: Knowledge Deficit Goal: Patient/family/caregiver demonstrates understanding of disease process, treatment plan, medications, and discharge instructions Outcome: Progressing Problem: Potential for Compromised Skin Integrity Goal: Skin Integrity is Maintained or Improved Outcome: Progressing Goal: Nutritional status is improving Outcome: Progressing Problem: Urinary Incontinence Goal: Perineal skin integrity is maintained or improved Outcome: Progressing [facility] 10-31-2024 Consult note Formatting of th is note is different from the original. Images from the original note were not included. Pharmacy Managed Vancomycin Dosing Service Consult Note Consult Date: 10/31/24 Patient Name: Yoko Emanuel Allergies: Patient has no known allergies. Age: 69 y.o. Sex: female Estimated body mass index is 15.8 kg/m as calculated from the following: Height as of this encounter: 1.448 m (4' 9"). Weight as of this encounter: 33.1 kg (73 lb). DW: 33.1 kg No results found for: "CREATININE", "BUN", "WBC", "CRCLEARANCE"Calculated CrCl: *CrCl UNKNOWN because NO history of Scr in EMR. CMP ordered and pending collection.. Will follow.* Consulted By: Henry Shaw APRN-KARLIE Infectious Diagnosis: SSTI (AUC Goal 400-600 mg/L*hr) Random Vancomycin Level Due: 6/4 AM Antimicrobials: Patient recently received an antibiotic (last 12 hours) None Assessment/Plan: Doses, serum creatinine, and vancomycin levels interfaced automatically to [employer] and data has been analyzed and interpreted. Give Vancomycin 750mg IVPB x1 (~22.7mg/kg) to get vancomycin started in patient that has NO labs in EMR to prevent treatment delay. Will re-assess regimen when SCR collected and determine plan going forward. Will assess random level on 6/4 AM and adjust as appropriate. Trend serum creatinine. Orders placed. ADDENDUM: 11/01 1443 Patient's physical chart had SCR from [facility] as paper copy. 10/30 SCR 0.38mg/dL. Ran patient's info in our AUC dosing program, but do not trust recs as patient is small (only 33.1kg) and is not typical population. Will enter intermittent dosing place fierro and check level in AM. Thank you for this consult. Please secure text or call with questions. DATE: 10/31/24 TIME: 2:24 PM Dasha Herman RPh Clinical Pharmacist Available via Secure Chat [facility] 10-31-2024 History and physical note Images from the original note were not included. Attending History and Physical Admit Date: 10/31/2024 PCP: No primary care provider on file. CHIEF COMPLAINT: Elevated white blood cell count and positive blood cultures Reason for Admission: Abdominal abscess History Obtained From: patient, Son, Facility, and [facility] HISTORY OF PRESENT ILLNESS: Yoko is a 69 y.o. female with past medical history below who presents with chief complaint listed above. Patient was sent from [facility] to [facility] for concerning findings on CT abdominal scan. Patient initially was sent to nursing home facility from [facility] for a partial amputation of her right foot. She had osteomyelitis. Patient was discharged on Zosyn and had a right PICC line placed. While in nursing home facility she completed her course of Zosyn for foot wound. That she then contracted pneumonia or started on IV Rocephin. That ended last week. Patient did have a elevated white count and positive blood cultures so they sent her to the hospital. Patient was found to have 2 abdominal abscesses and possible osteomyelitis. Patient currently has a sacral wound, left lower quadrant fistula draining purulent drainage, two left heel wounds and healing right partial foot amputation. Patient currently denies having a headache, dizziness, chest pain, shortness of breath, abdominal pain, diarrhea, constipation, hematuria or dysuria. Patient does note pain in her sacrum and bilateral lower extremities. Will admit for further evaluation and management. Past Medical History: Medical History[1] Past Surgical History: Surgical History[2] Social History: Social History Socioeconomic History Marital status: Spouse name: Not on file Number of children: Not on file Years of education: Not on file Highest education level: Not on file Occupational History Not on file Tobacco Use Smoking status: Former Current packs/day: 0.00 Average packs/day: 2.0 packs/day for 65.0 years (130.0 ttl pk-yrs) Types: Cigarettes Start date: 1959 Quit date: 05/2024 Years since quittin.4 Smokeless tobacco: Never Substance and Sexual Activity Alcohol use: Never Drug use: Never Sexual activity: Not on file Other Topics Concern Not on file Social History Narrative Not on file Social Drivers of Health Financial Resource Strain: Not on file Food Insecurity: No Food Insecurity (10/31/2024) Hunger Vital Sign Worried About Running Out of Food in the Last Year: Never true Ran Out of Food in the Last Year: Never true Transportation Needs: No Transportation Needs (10/31/2024) PRAPARE - Transportation Lack of Transportation (Medical): No Lack of Transportation (Non-Medical): No Physical Activity: Not on file Stress: Not on file Social Connections: Not on file Intimate Partner Violence: Not At Risk (10/31/2024) Humiliation, Afraid, Rape, and Kick questionnaire Fear of Current or Ex-Partner: No Emotionally Abused: No Physically Abused: No Sexually Abused: No Housing Stability: Low Risk (10/31/2024) Housing Stability Vital Sign Unable to Pay for Housing in the Last Year: No Number of Times Moved in the Last Year: 1 Homeless in the Last Year: No Family History: Family History[3] Medications Prior to Admission: Current Medications[4] Allergies: Allergies[5] REVIEW OF SYSTEMS: A focused review of systems was performed and is negative except as stated in above HPI. Vitals: BP (!) 99/46 Pulse 94 Temp 36.7 C (98 F) (Temporal) Resp 18 Ht 1.448 m (4' 9") Wt 33.1 kg (73 lb) SpO2 94% BMI 15.80 kg/m BMI Classification: Underweight (BMI <18.5) Pulse Ox: SpO2 Av % Min: 94 % Max: 94 % Supplemental O2: PHYSICAL EXAM: Physical Exam Vitals and nursing note reviewed. Constitutional: General: She is not in acute distress. Appearance: She is underweight. HENT: Head: Normocephalic. Nose: Nose normal. Mouth/Throat: Mouth: Mucous membranes are moist. Pharynx: Oropharynx is clear. Eyes: General: Right eye: No discharge. Left eye: No discharge. Cardiovascular: Rate and Rhythm: Normal rate and regular rhythm. Pulmonary: Effort: Pulmonary effort is normal. No respiratory distress. Breath sounds: Normal breath sounds. Comments: Diminished breath sounds Abdominal: General: Abdomen is flat. There is no distension. Palpations: Abdomen is soft. Tenderness: There is abdominal tenderness. Comments: Left lower quadrant Musculoskeletal: Cervical back: Normal range of motion. Right lower leg: No edema. Left lower leg: No edema. Skin: General: Skin is warm and dry. Comments: Patient has a right arm PICC line, abdominal left lower quadrant fistula with purulent and stool drainage. The area around the fistula is erythemic and tender to the touch. She has a sacral pressure injury that is macerated, erythemic, with yellow slough for center with black area. Right foot partial amputation is not well-approximated draining serous fluid with dark dried drainage. Right heel has black dry pressure injury. Left heel healing pressure injury and a healing pressure injury on Achilles tendon Neurological: Mental Status: She is alert and oriented to person, place, and time. Mental status is at baseline. Psychiatric: Mood and Affect: Mood normal. Thought Content: Thought content normal. Judgment: Judgment normal. DATA: CBC: No results for input(s): "WBC", "RBC", "HGB", "HCT", "MCV", "RDW", "PLT" in the last 72 hours. BMP:No results for input(s): "NA", "K", "CL", "CO2", "BUN", "CREATININE", "GLUCOSE", "CALCIUM", "ANIONGAP" in the last 72 hours. LIVER PROFILE:No results for input(s): "AST", "ALT", "BILITOT", "ALKPHOS", "PROT" in the last 72 hours. No lab exists for component: LABALBU PT/INR: No results for input(s): "PROTIME", "INR" in the last 72 hours. CARDIAC ENZYMES: No results for input(s): "TROPONINI" in the last 72 hours. Procalcitonin: No results found for: "PROCAL" Urine Culture: No results found for this or any previous visit. COVID-19 PCR: No results for input(s): "COVID19" in the last 72 hours. I reviewed: [x] laboratory results [x] radiographic results At the time of today's encounter. Pt was advised of the results. Data: (CAT1) Reviewed 3 or more notes from different specialty or health system (each=1). (CAT1) Reviewed 3 or more labs/studies ordered by another provider not previously counted (each=1, panels count as 1). (CAT1) Ordered 3 or more new labs and/or studies (each=1, panels count as 1). (CAT3) Mgmt of the patient was discussed with Dr. Trujillo, who stated, in summary: Patient needs full workup, abdominal CT, chest x-ray, CRP, CBC, CMP, lactic acid, ESR, blood cultures, remove PICC line, culture PICC tip, consult ID, palliative, social work and wound care. Restart home medications and follow closely. Restart patient on Zosyn and vancomycin. (LOW: 2x CAT1 or independent historian MOD: 3x CAT1 or 1x CAT3 EXTENSIVE: 3x CAT1 and 1x CAT3) Assessment Discussed management with the ED provider and agree with hospitalization. 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 Sacral pressure injury Right heel pressure injury Left heel pressure injury Left Achilles pressure injury Stable chronic problems affecting care, new non-acute diagnoses: Hyperlipidemia Neuropathy Diabetes mellitus type 2 Plan As a result of the above findings & factors, the following mgmt was pursued: - Will consult infectious disease due to multiple wounds, recent partial foot amputation, abdominal fistula with abscesses -Consult wound care due to extensive wounds -Consult social work patient is DNR CC and multiple issues -Consult palliative care -Start IV vancomycin to be dosed per pharmacy -Start IV Zosyn 3.375 g -Restart home medications for chronic stable conditions -Check blood sugar ACHS for insulin efficacy and hypoglycemia -Get a CT abdomen pelvis with contrast, chest x-ray, CRP, ESR, CMP, CBC, lactic acid, blood cultures, culture PICC line, culture abdominal fistula, and get a urinalysis -Remove PICC line and start new peripheral IV -Consult dietitian - am labs, replace lytes prn - PT/OT/CM/SW - delirium precautions: increase activity and limit nighttime disturbances - DVT prophylaxis: enoxaparin and encourage ambulation Advance Directive: Full Code Anticipated Discharge - Date -11/02/2024 - Location - Skilled Facility - Pending the following -palliative, infectious disease, and social work recommendations Total time spent (which include face to face and non face to face encounters) : 75 minutes. Extended Emergency Contact Information Primary Emergency Contact: Sean Mccann Mobile Relation: Son [employer] Yoko Emanuel : 1955 Primary Care Physician: No primary care provider on file. The patient and/or family/surrogate voluntarily agreed to participate in ACP services. 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 The patient DPOA is the following: Adam Mccann. Patient being managed for infected PICC line. Patient is noted to be a DNR CC per facility paperwork and POA. I answered all the patient/family questions that I could within the range and scope of the current medical situation. We discussed the medical conditions, risks, benefits, outcomes, and goals of care at this time for the patient's medical issues at hand in the face of the patient's chronic issues and current presentation. Total time spent: 5 minutes were spent discussing the patient's resuscitation status, advance care planning, and end of life care, with patient and/or family/surrogate. NIRMAL Chang CNP Division of Hospitalist Medicine [1] History reviewed. No pertinent past medical history. [2] History reviewed. No pertinent surgical history. [3] No family history on file. [4] Current Facility-Administered Medications: acetaminophen (Tylenol) tablet 650 mg, 650 mg, Oral, q6h PRN OR acetaminophen (Tylenol) suppository 650 mg, 650 mg, Rectal, q6h PRN, Shey Trujillo MD [START ON 11/01/2024] aspirin EC tablet 81 mg, 81 mg, Oral, Daily, NIRMAL Orona CNP atorvastatin (Lipitor) tablet 80 mg, 80 mg, Oral, Nightly, NIRMAL Orona CNP citalopram (CeleXA) tablet 10 mg, 10 mg, Oral, Daily, NIRMAL Orona CNP dextrose 5 % infusion, 100 mL/hr, IntraVENous, PRN, NIRMAL Orona CNP dextrose 50 % solution 12.5 g, 12.5 g, IntraVENous, PRN, NIRMAL Orona CNP [START ON 11/01/2024] ferrous sulfate tablet 325 mg, 325 mg, Oral, Daily with breakfast, NIRMAL Orona CNP gabapentin (Neurontin) capsule 100 mg, 100 mg, Oral, TID, NIRMAL Orona CNP glucagon (human recombinant) injection 1 mg, 1 mg, IntraMUSCular, PRN, NIRMAL Orona CNP glucose oral gel 15 g, 15 g, Oral, PRN, NIRMAL Orona CNP Insulin Lispro (Humalog) injection 0-6 Units, 0-6 Units, SubCUTAneous, TID WC AND Insulin Lispro (Humalog) injection 0-6 Units, 0-6 Units, SubCUTAneous, Nightly, NIRMAL Orona CNP mirtazapine (Remeron) tablet 30 mg, 30 mg, Oral, Nightly, NIRMAL Orona CNP polyethylene glycol (PEG) 3350 (Miralax) packet 17 g, 17 g, Oral, Daily PRN, Shey Trujillo MD prochlorperazine (Compazine) injection 5 mg, 5 mg, IntraVENous, q6h PRN, Shey Trujillo MD sodium chloride 0.9 % infusion, 5-250 mL/hr, IntraVENous, PRN, Shey Trujillo MD sodium chloride 0.9% (NS) flush 5-40 mL, 5-40 mL, IntraVENous, q12h, Shey Trujillo MD sodium chloride 0.9% (NS) flush 5-40 mL, 5-40 mL, IntraVENous, PRN, Shey Trujillo MD [5] No Known Allergies Cosigned by Shey Trujillo MD at 10/31/2024 2:45 PM EDT Associated attestation - Shey Trujillo MD - 10/31/2024 2:45 PM EDT Hospitalist Progress Note 10/31/[phone]: Please page me ([phone]) for patient care issues. [phone]: Please page [facility] night Hospitalist for any issues. Subjective: Admit Date: 10/31/2024 PCP: No primary care provider on file. Room#: [id number]/[id number] A I have evaluated the patient and reviewed the case with the QING. I agree with the current plan of care including the workup, evaluation, management, and diagnosis. Care plan has been discussed. The documentation below has been reviewed. Greater than 51% of the 15 minute face to face encounter was spent discussing/counseling the patient regarding the care plan for this patient. The patient was seen and examined independently and relevant data reviewed by myself. A full chart review was performed (although limited data in chart). S:. On evaluation, patient very hard of hearing. Discussed with Henry Shaw APRN-KARLIE patient's current acute issues including what we could find in the chart. He will reach out to other hospital the patient was recently at to get further information faxed over so that we can better determine next best course. Patient herself stating she would not want surgical intervention for her abdominal abscesses, however I discussed with her if she would need further intervention would she be open to it. At this time, states not sure until we can get more information for her to make a decision. Otherwise NIRMAL also discussed updates with son and facility. O: BP (!) 99/46 Pulse 94 Temp 36.7 C (98 F) (Temporal) Resp 18 Ht 4' 9" (1.448 m) Wt 73 lb (33.1 kg) SpO2 94% BMI 15.80 kg/m In bed, not in any acute distress on evaluation this morning. RN also at bedside obtaining labs. Other than being hard of hearing patient is oriented. BKA right side. PICC line in place in right upper arm area. A&P: Infected PICC line Abdominal fistula with abscesses Concern for osteo myelitis on imaging from outside facility (pelvic bone) - Admitting for further evaluation and management - Palliative care consult/patient wanting to be DNR CC but with needs for a lot of intervention although declining some - Continue in the meantime with conservative treatment including cultures, lab work for abscesses, removal of PICC line, infectious disease consult -Rest of plan as below, discussed in detail with NIRMAL Shaw CNP Total time spent (which include face to face and non face to face encounters) : 20 minutes Shey Trujillo MD Division of Hospitalist Medicine Acute care [facility] 2:38 PM 10/31/24 Pantry Phone: 10-31-2024 Note Attestation signed by Shey Trujillo MD at 10/31/2024 2:45 PM Hospitalist Progress Note 10/31/2024 [phone]: Please page me ([phone]) for patient care issues. [phone]: Please page [facility] night Hospitalist for any issues. Subjective: Admit Date: 10/31/2024PCP: No primary care provider on file. Room#: [id number]/[id number] A I have evaluated the patient and reviewed the case with the QING. I agree with the current plan of care including the workup, evaluation, management, and diagnosis. Care plan has been discussed. The documentation below has been reviewed. Greater than 51% of the 15 minute face to face encounter was spent discussing/counseling the patient regarding the care plan for this patient. The patient was seen and examined independently and relevant data reviewed by myself. A full chart review was performed (although limited data in chart). S:. On evaluation, patient very hard of hearing. Discussed with Henry Shaw APRN-KARLIE patient's current acute issues including what we could find in the chart. He will reach out to other hospital the patient was recently at to get further information faxed over so that we can better determine next best course. Patient herself stating she would not want surgical intervention for her abdominal abscesses, however I discussed with her if she would need further intervention would she be open to it. At this time, states not sure until we can get more information for her to make a decision. Otherwise NIRMAL also discussed updates with son and facility. O: BP (!) 99/46 Pulse 94 Temp 36.7 ?C (98 ?F) (Temporal) Resp 18 Ht 4' 9" (1.448 m) Wt 73 lb (33.1 kg) SpO2 94% BMI 15.80 kg/m? In bed, not in any acute distress on evaluation this morning. RN also at bedside obtaining labs. Other than being hard of hearing patient is oriented. BKA right side. PICC line in place in right upper arm area. A&P: Infected PICC line Abdominal fistula with abscesses Concern for osteo myelitis on imaging from outside facility (pelvic bone) - Admitting for further evaluation and management - Palliative care consult/patient wanting to be DNR CC but with needs for a lot of intervention although declining some - Continue in the meantime with conservative treatment including cultures, lab work for abscesses, removal of PICC line, infectious disease consult -Rest of plan as below, discussed in detail with NIRMAL Shaw CNP Total time spent (which include face to face and non face to face encounters) : 20 minutes Shey Trujillo MD Division of Hospitalist Medicine [facility] 2:38 PM 10/31/24 Attending History and Physical Admit Date: 10/31/2024 PCP: No primary care provider on file. CHIEF COMPLAINT: Elevated white blood cell count and positive blood cultures Reason for Admission: Abdominal abscess History Obtained From: patient, Son, Facility, and [facility] HISTORY OF PRESENT ILLNESS: Yoko is a 69 y.o. female with past medical history below who presents with chief complaint listed above. Patient was sent from [facility] to [facility] for concerning findings on CT abdominal scan. Patient initially was sent to nursing home facility from [facility] for a partial amputation of her right foot. She had osteomyelitis. Patient was discharged on Zosyn and had a right PICC line placed. While in nursing home facility she completed her course of Zosyn for foot wound. That she then contracted pneumonia or started on IV Rocephin. That ended last week. Patient did have a elevated white count and positive blood cultures so they sent her to the hospital. Patient was found to have 2 abdominal abscesses and possible osteomyelitis. Patient currently has a sacral wound, left lower quadrant fistula draining purulent drainage, two leftheel wounds and healing right partial foot amputation. Patient currently denies having a headache, dizziness, chest pain, shortness of breath, abdominal pain, diarrhea, constipation, hematuria or dysuria. Patient does note pain in her sacrum and bilateral lower extremities. Will admit for further evaluation and management. Past Medical History: Medical History[1] Past Surgical History: Surgical History[2] Social History: Social History Socioeconomic History Marital status: Spouse name: Not on file Number of children: Not on file Years of education: Not on file Highest education level: Not on file Occupational History Not on file Tobacco Use Smoking status: Former Current packs/day: 0.00 Average packs/day: 2.0 packs/day for 65.0 years (130.0 ttl pk-yrs) Types: Cigarettes Start date: 1959 Quit date: 05/2024 Years since quittin.4 Smokeless tobacco: Never Substance and Sexual Activity Alcohol use: Never (more content not included)... [facility] 10-31-2024 History and physical note Images from the original note were not included. Attending History and Physical Admit Date: 10/31/2024 PCP: No primary care provider on file. CHIEF COMPLAINT: Elevated white blood cell count and positive blood cultures Reason for Admission: Abdominal abscess History Obtained From: patient, Son, Facility, and [facility] HISTORY OF PRESENT ILLNESS: Yoko is a 69 y.o. female with past medical history below who presents with chief complaint listed above. Patient was sent from [facility] to [facility] for concerning findings on CT abdominal scan. Patient initially was sent to nursing home facility from [facility] for a partial amputation of her right foot. She had osteomyelitis. Patient was discharged on Zosyn and had a right PICC line placed. While in nursing home facility she completed her course of Zosyn for foot wound. That she then contracted pneumonia or started on IV Rocephin. That ended last week. Patient did have a elevated white count and positive blood cultures so they sent her to the hospital. Patient was found to have 2 abdominal abscesses and possible osteomyelitis. Patient currently has a sacral wound, left lower quadrant fistula draining purulent drainage, two left heel wounds and healing right partial foot amputation. Patient currently denies having a headache, dizziness, chest pain, shortness of breath, abdominal pain, diarrhea, constipation, hematuria or dysuria. Patient does note pain in her sacrum and bilateral lower extremities. Will admit for further evaluation and management. Past Medical History: Medical History[1] Past Surgical History: Surgical History[2] Social History: Social History Socioeconomic History Marital status: Spouse name: Not on file Number of children: Not on file Years of education: Not on file Highest education level: Not on file Occupational History Not on file Tobacco Use Smoking status: Former Current packs/day: 0.00 Average packs/day: 2.0 packs/day for 65.0 years (130.0 ttl pk-yrs) Types: Cigarettes Start date: 1959 Quit date: 05/2024 Years since quittin.4 Smokeless tobacco: Never Substance and Sexual Activity Alcohol use: Never Drug use: Never Sexual activity: Not on file Other Topics Concern Not on file Social History Narrative Not on file Social Drivers of Health Financial Resource Strain: Not on file Food Insecurity: No Food Insecurity (10/31/2024) Hunger Vital Sign Worried About Running Out of Food in the Last Year: Never true Ran Out of Food in the Last Year: Never true Transportation Needs: No Transportation Needs (10/31/2024) PRAPARE - Transportation Lack of Transportation (Medical): No Lack of Transportation (Non-Medical): No Physical Activity: Not on file Stress: Not on file Social Connections: Not on file Intimate Partner Violence: Not At Risk (10/31/2024) Humiliation, Afraid, Rape, and Kick questionnaire Fear of Current or Ex-Partner: No Emotionally Abused: No Physically Abused: No Sexually Abused: No Housing Stability: Low Risk (10/31/2024) Housing Stability Vital Sign Unable to Pay for Housing in the Last Year: No Number of Times Moved in the Last Year: 1 Homeless in the Last Year: No Family History: Family History[3] Medications Prior to Admission: Current Medications[4] Allergies: Allergies[5] REVIEW OF SYSTEMS: A focused review of systems was performed and is negative except as stated in above HPI. Vitals: BP (!) 99/46 Pulse 94 Temp 36.7 C (98 F) (Temporal) Resp 18 Ht 1.448 m (4' 9") Wt 33.1 kg (73 lb) SpO2 94% BMI 15.80 kg/m BMI Classification: Underweight (BMI <18.5) Pulse Ox: SpO2 Av % Min: 94 % Max: 94 % Supplemental O2: PHYSICAL EXAM: Physical Exam Vitals and nursing note reviewed. Constitutional: General: She is not in acute distress. Appearance: She is underweight. HENT: Head: Normocephalic. Nose: Nose normal. Mouth/Throat: Mouth: Mucous membranes are moist. Pharynx: Oropharynx is clear. Eyes: General: Right eye: No discharge. Left eye: No discharge. Cardiovascular: Rate and Rhythm: Normal rate and regular rhythm. Pulmonary: Effort: Pulmonary effort is normal. No respiratory distress. Breath sounds: Normal breath sounds. Comments: Diminished breath sounds Abdominal: General: Abdomen is flat. There is no distension. Palpations: Abdomen is soft. Tenderness: There is abdominal tenderness. Comments: Left lower quadrant Musculoskeletal: Cervical back: Normal range of motion. Right lower leg: No edema. Left lower leg: No edema. Skin: General: Skin is warm and dry. Comments: Patient has a right arm PICC line, abdominal left lower quadrant fistula with purulent and stool drainage. The area around the fistula is erythemic and tender to the touch. She has a sacral pressure injury that is macerated, erythemic, with yellow slough for center with black area. Right foot partial amputation is not well-approximated draining serous fluid with dark dried drainage. Right heel has black dry pressure injury. Left heel healing pressure injury and a healing pressure injury on Achilles tendon Neurological: Mental Status: She is alert and oriented to person, place, and time. Mental status is at baseline. Psychiatric: Mood and Affect: Mood normal. Thought Content: Thought content normal. Judgment: Judgment normal. DATA: CBC: No results for input(s): "WBC", "RBC", "HGB", "HCT", "MCV", "RDW", "PLT" in the last 72 hours. BMP:No results for input(s): "NA", "K", "CL", "CO2", "BUN", "CREATININE", "GLUCOSE", "CALCIUM", "ANIONGAP" in the last 72 hours. LIVER PROFILE:No results for input(s): "AST", "ALT", "BILITOT", "ALKPHOS", "PROT" in the last 72 hours. No lab exists for component: LABALBU PT/INR: No results for input(s): "PROTIME", "INR" in the last 72 hours. CARDIAC ENZYMES: No results for input(s): "TROPONINI" in the last 72 hours. Procalcitonin: No results found for: "PROCAL" Urine Culture: No results found for this or any previous visit. COVID-19 PCR: No results for input(s): "COVID19" in the last 72 hours. I reviewed: [x] laboratory results [x] radiographic results At the time of today's encounter. Pt was advised of the results. Data: (CAT1) Reviewed 3 or more notes from different specialty or health system (each=1). (CAT1) Reviewed 3 or more labs/studies ordered by another provider not previously counted (each=1, panels count as 1). (CAT1) Ordered 3 or more new labs and/or studies (each=1, panels count as 1). (CAT3) Mgmt of the patient was discussed with Dr. Trujillo, who stated, in summary: Patient needs full workup, abdominal CT, chest x-ray, CRP, CBC, CMP, lactic acid, ESR, blood cultures, remove PICC line, culture PICC tip, consult ID, palliative, social work and wound care. Restart home medications and follow closely. Restart patient on Zosyn and vancomycin. (LOW: 2x CAT1 or independent historian MOD: 3x CAT1 or 1x CAT3 EXTENSIVE: 3x CAT1 and 1x CAT3) Assessment Discussed management with the ED provider and agree with hospitalization. 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 Sacral pressure injury Right heel pressure injury Left heel pressure injury Left Achilles pressure injury Stable chronic problems affecting care, new non-acute diagnoses: Hyperlipidemia Neuropathy Diabetes mellitus type 2 Plan As a result of the above findings & factors, the following mgmt was pursued: - Will consult infectious disease due to multiple wounds, recent partial foot amputation, abdominal fistula with abscesses -Consult wound care due to extensive wounds -Consult social work patient is DNR CC and multiple issues -Consult palliative care -Start IV vancomycin to be dosed per pharmacy -Start IV Zosyn 3.375 g -Restart home medications for chronic stable conditions -Check blood sugar ACHS for insulin efficacy and hypoglycemia -Get a CT abdomen pelvis with contrast, chest x-ray, CRP, ESR, CMP, CBC, lactic acid, blood cultures, culture PICC line, culture abdominal fistula, and get a urinalysis -Remove PICC line and start new peripheral IV -Consult dietitian - am labs, replace lytes prn - PT/OT/CM/SW - delirium precautions: increase activity and limit nighttime disturbances - DVT prophylaxis: enoxaparin and encourage ambulation Advance Directive: Full Code Anticipated Discharge - Date -11/02/2024 - Location - Skilled Facility - Pending the following -palliative, infectious disease, and social work recommendations Total time spent (which include face to face and non face to face encounters) : 75 minutes. Extended Emergency Contact Information Primary Emergency Contact: Sean Mccann Mobile Relation: Son [employer] Yoko Emanuel : 1955 Primary Care Physician: No primary care provider on file. The patient and/or family/surrogate voluntarily agreed to participate in ACP services. 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 The patient DPOA is the following: Adam Mccann. Patient being managed for infected PICC line. Patient is noted to be a DNR CC per facility paperwork and POA. I answered all the patient/family questions that I could within the range and scope of the current medical situation. We discussed the medical conditions, risks, benefits, outcomes, and goals of care at this time for the patient's medical issues at hand in the face of the patient's chronic issues and current presentation. Total time spent: 5 minutes were spent discussing the patient's resuscitation status, advance care planning, and end of life care, with patient and/or family/surrogate. NIRMAL Chang CNP Division of Hospitalist Medicine [1] History reviewed. No pertinent past medical history. [2] History reviewed. No pertinent surgical history. [3] No family history on file. [4] Current Facility-Administered Medications: acetaminophen (Tylenol) tablet 650 mg, 650 mg, Oral, q6h PRN OR acetaminophen (Tylenol) suppository 650 mg, 650 mg, Rectal, q6h PRN, Shey Trujillo MD [START ON 11/01/2024] aspirin EC tablet 81 mg, 81 mg, Oral, Daily, NIRMAL Orona CNP atorvastatin (Lipitor) tablet 80 mg, 80 mg, Oral, Nightly, Henry Shaw APRN - [facility] citalopram (CeleXA) tablet 10 mg, 10 mg, Oral, Daily, Henry Shaw APRN - [facility] dextrose 5 % infusion, 100 mL/hr, IntraVENous, PRN, Henry Shaw APRN - [facility] dextrose 50 % solution 12.5 g, 12.5 g, IntraVENous, PRN, Henry Shaw APRN - [facility] [START ON 11/01/2024] ferrous sulfate tablet 325 mg, 325 mg, Oral, Daily with breakfast, Henry Shaw APRN - [facility] gabapentin (Neurontin) capsule 100 mg, 100 mg, Oral, TID, NIRMAL Orona CNP glucagon (human recombinant) injection 1 mg, 1 mg, IntraMUSCular, PRN, Henry Shaw APRN - [facility] glucose oral gel 15 g, 15 g, Oral, PRN, Henry Shaw APRN - [facility] Insulin Lispro (Humalog) injection 0-6 Units, 0-6 Units, SubCUTAneous, TID WC AND Insulin Lispro (Humalog) injection 0-6 Units, 0-6 Units, SubCUTAneous, Nightly, NIRMAL Oron[place] CNP mirtazapine (Remeron) tablet 30 mg, 30 mg, Oral, Nightly, Henry Shaw APRN - [facility] polyethylene glycol (PEG) 3350 (Miralax) packet 17 g, 17 g, Oral, Daily PRN, Shey Trujillo MD prochlorperazine (Compazine) injection 5 mg, 5 mg, IntraVENous, q6h PRN, Shey Trujillo MD sodium chloride 0.9 % infusion, 5-250 mL/hr, IntraVENous, PRN, Shey Trujillo MD sodium chloride 0.9% (NS) flush 5-40 mL, 5-40 mL, IntraVENous, q12h, Shey Trujillo MD sodium chloride 0.9% (NS) flush 5-40 mL, 5-40 mL, IntraVENous, PRN, Shey Trujillo MD [5] No Known Allergies Cosigned by Shey Trujillo MD at 10/31/2024 2:45 PM EDT Associated attestation - Shey Trujillo MD - 10/31/2024 2:45 PM EDT Hospitalist Progress Note 10/31/2024 [id number]: Please page me ([phone]) for patient care issues. [phone]: Please page [facility] night Hospitalist for any issues. Subjective: Admit Date: 10/31/2024 PCP: No primary care provider on file. Room#: H-6135/H-5085 A I have evaluated the patient and reviewed the case with the QING. I agree with the current plan of care including the workup, evaluation, management, and diagnosis. Care plan has been discussed. The documentation below has been reviewed. Greater than 51% of the 15 minute face to face encounter was spent discussing/counseling the patient regarding the care plan for this patient. The patient was seen and examined independently and relevant data reviewed by myself. A full chart review was performed (although limited data in chart). S:. On evaluation, patient very hard of hearing. Discussed with NICHELLE Ortiz patient's current acute issues including what we could find in the chart. He will reach out to other hospital the patient was recently at to get further information faxed over so that we can better determine next best course. Patient herself stating she would not want surgical intervention for her abdominal abscesses, however I discussed with her if she would need further intervention would she be open to it. At this time, states not sure until we can get more information for her to make a decision. Otherwise NIRMAL also discussed updates with son and facility. O: BP (!) 99/46 Pulse 94 Temp 36.7 C (98 F) (Temporal) Resp 18 Ht 4' 9" (1.448 m) Wt 73 lb (33.1 kg) SpO2 94% BMI 15.80 kg/m In bed, not in any acute distress on evaluation this morning. RN also at bedside obtaining labs. Other than being hard of hearing patient is oriented. BKA right side. PICC line in place in right upper arm area. A&P: Infected PICC line Abdominal fistula with abscesses Concern for osteo myelitis on imaging from outside facility (pelvic bone) - Admitting for further evaluation and management - Palliative care consult/patient wanting to be DNR CC but with needs for a lot of intervention although declining some - Continue in the meantime with conservative treatment including cultures, lab work for abscesses, removal of PICC line, infectious disease consult -Rest of plan as below, discussed in detail with NIRMAL Shaw CNP Total time spent (which include face to face and non face to face encounters) : 20 minutes Shey Trujillo MD Division of Hospitalist Medicine [facility] 2:38 PM 10/31/24 documented in this encounter [facility] 10-31-2024 History and physical note Images from the original note were not included. Attending History and Physical Admit Date: 10/31/2024 PCP: No primary care provider on file. CHIEF COMPLAINT: Elevated white blood cell count and positive blood cultures Reason for Admission: Abdominal abscess History Obtained From: patient, Son, Facility, and [facility] HISTORY OF PRESENT ILLNESS: Yoko is a 69 y.o. female with past medical history below who presents with chief complaint listed above. Patient was sent from [facility] to [facility] for concerning findings on CT abdominal scan. Patient initially was sent to nursing home facility from [facility] for a partial amputation of her right foot. She had osteomyelitis. Patient was discharged on Zosyn and had a right PICC line placed. While in nursing home facility she completed her course of Zosyn for foot wound. That she then contracted pneumonia or started on IV Rocephin. That ended last week. Patient did have a elevated white count and positive blood cultures so they sent her to the hospital. Patient was found to have 2 abdominal abscesses and possible osteomyelitis. Patient currently has a sacral wound, left lower quadrant fistula draining purulent drainage, two left heel wounds and healing right partial foot amputation. Patient currently denies having a headache, dizziness, chest pain, shortness of breath, abdominal pain, diarrhea, constipation, hematuria or dysuria. Patient does note pain in her sacrum and bilateral lower extremities. Will admit for further evaluation and management. Past Medical History: Medical History[1] Past Surgical History: Surgical History[2] Social History: Social History Socioeconomic History Marital status: Spouse name: Not on file Number of children: Not on file Years of education: Not on file Highest education level: Not on file Occupational History Not on file Tobacco Use Smoking status: Former Current packs/day: 0.00 Average packs/day: 2.0 packs/day for 65.0 years (130.0 ttl pk-yrs) Types: Cigarettes Start date: 1959 Quit date: 05/2024 Years since quittin.4 Smokeless tobacco: Never Substance and Sexual Activity Alcohol use: Never Drug use: Never Sexual activity: Not on file Other Topics Concern Not on file Social History Narrative Not on file Social Drivers of Health Financial Resource Strain: Not on file Food Insecurity: No Food Insecurity (10/31/2024) Hunger Vital Sign Worried About Running Out of Food in the Last Year: Never true Ran Out of Food in the Last Year: Never true Transportation Needs: No Transportation Needs (10/31/2024) PRAPARE - Transportation Lack of Transportation (Medical): No Lack of Transportation (Non-Medical): No Physical Activity: Not on file Stress: Not on file Social Connections: Not on file Intimate Partner Violence: Not At Risk (10/31/2024) Humiliation, Afraid, Rape, and Kick questionnaire Fear of Current or Ex-Partner: No Emotionally Abused: No Physically Abused: No Sexually Abused: No Housing Stability: Low Risk (10/31/2024) Housing Stability Vital Sign Unable to Pay for Housing in the Last Year: No Number of Times Moved in the Last Year: 1 Homeless in the Last Year: No Family History: Family History[3] Medications Prior to Admission: Current Medications[4] Allergies: Allergies[5] REVIEW OF SYSTEMS: A focused review of systems was performed and is negative except as stated in above HPI. Vitals: BP (!) 99/46 Pulse 94 Temp 36.7 C (98 F) (Temporal) Resp 18 Ht 1.448 m (4' 9") Wt 33.1 kg (73 lb) SpO2 94% BMI 15.80 kg/m BMI Classification: Underweight (BMI <18.5) Pulse Ox: SpO2 Av % Min: 94 % Max: 94 % Supplemental O2: PHYSICAL EXAM: Physical Exam Vitals and nursing note reviewed. Constitutional: General: She is not in acute distress. Appearance: She is underweight. HENT: Head: Normocephalic. Nose: Nose normal. Mouth/Throat: Mouth: Mucous membranes are moist. Pharynx: Oropharynx is clear. Eyes: General: Right eye: No discharge. Left eye: No discharge. Cardiovascular: Rate and Rhythm: Normal rate and regular rhythm. Pulmonary: Effort: Pulmonary effort is normal. No respiratory distress. Breath sounds: Normal breath sounds. Comments: Diminished breath sounds Abdominal: General: Abdomen is flat. There is no distension. Palpations: Abdomen is soft. Tenderness: There is abdominal tenderness. Comments: Left lower quadrant Musculoskeletal: Cervical back: Normal range of motion. Right lower leg: No edema. Left lower leg: No edema. Skin: General: Skin is warm and dry. Comments: Patient has a right arm PICC line, abdominal left lower quadrant fistula with purulent and stool drainage. The area around the fistula is erythemic and tender to the touch. She has a sacral pressure injury that is macerated, erythemic, with yellow slough for center with black area. Right foot partial amputation is not well-approximated draining serous fluid with dark dried drainage. Right heel has black dry pressure injury. Left heel healing pressure injury and a healing pressure injury on Achilles tendon Neurological: Mental Status: She is alert and oriented to person, place, and time. Mental status is at baseline. Psychiatric: Mood and Affect: Mood normal. Thought Content: Thought content normal. Judgment: Judgment normal. DATA: CBC: No results for input(s): "WBC", "RBC", "HGB", "HCT", "MCV", "RDW", "PLT" in the last 72 hours. BMP:No results for input(s): "NA", "K", "CL", "CO2", "BUN", "CREATININE", "GLUCOSE", "CALCIUM", "ANIONGAP" in the last 72 hours. LIVER PROFILE:No results for input(s): "AST", "ALT", "BILITOT", "ALKPHOS", "PROT" in the last 72 hours. No lab exists for component: LABALBU PT/INR: No results for input(s): "PROTIME", "INR" in the last 72 hours. CARDIAC ENZYMES: No results for input(s): "TROPONINI" in the last 72 hours. Procalcitonin: No results found for: "PROCAL" Urine Culture: No results found for this or any previous visit. COVID-19 PCR: No results for input(s): "COVID19" in the last 72 hours. I reviewed: [x] laboratory results [x] radiographic results At the time of today's encounter. Pt was advised of the results. Data: (CAT1) Reviewed 3 or more notes from different specialty or health system (each=1). (CAT1) Reviewed 3 or more labs/studies ordered by another provider not previously counted (each=1, panels count as 1). (CAT1) Ordered 3 or more new labs and/or studies (each=1, panels count as 1). (CAT3) Mgmt of the patient was discussed with Dr. Trujillo, who stated, in summary: Patient needs full workup, abdominal CT, chest x-ray, CRP, CBC, CMP, lactic acid, ESR, blood cultures, remove PICC line, culture PICC tip, consult ID, palliative, social work and wound care. Restart home medications and follow closely. Restart patient on Zosyn and vancomycin. (LOW: 2x CAT1 or independent historian MOD: 3x CAT1 or 1x CAT3 EXTENSIVE: 3x CAT1 and 1x CAT3) Assessment Discussed management with the ED provider and agree with hospitalization. 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 Sacral pressure injury Right heel pressure injury Left heel pressure injury Left Achilles pressure injury Stable chronic problems affecting care, new non-acute diagnoses: Hyperlipidemia Neuropathy Diabetes mellitus type 2 Plan As a result of the above findings & factors, the following mgmt was pursued: - Will consult infectious disease due to multiple wounds, recent partial foot amputation, abdominal fistula with abscesses -Consult wound care due to extensive wounds -Consult social work patient is DNR CC and multiple issues -Consult palliative care -Start IV vancomycin to be dosed per pharmacy -Start IV Zosyn 3.375 g -Restart home medications for chronic stable conditions -Check blood sugar ACHS for insulin efficacy and hypoglycemia -Get a CT abdomen pelvis with contrast, chest x-ray, CRP, ESR, CMP, CBC, lactic acid, blood cultures, culture PICC line, culture abdominal fistula, and get a urinalysis -Remove PICC line and start new peripheral IV -Consult dietitian - am labs, replace lytes prn - PT/OT/CM/SW - delirium precautions: increase activity and limit nighttime disturbances - DVT prophylaxis: enoxaparin and encourage ambulation Advance Directive: Full Code Anticipated Discharge - Date -11/02/2024 - Location - Skilled Facility - Pending the following -palliative, infectious disease, and social work recommendations Total time spent (which include face to face and non face to face encounters) : 75 minutes. Extended Emergency Contact Information Primary Emergency Contact: Sean Mccann Mobile Relation: Son [employer] Yoko Emanuel : 1955 Primary Care Physician: No primary care provider on file. The patient and/or family/surrogate voluntarily agreed to participate in ACP services. 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 The patient DPOA is the following: Adam Ramy. Patient being managed for infected PICC line. Patient is noted to be a DNR CC per facility paperwork and POA. I answered all the patient/family questions that I could within the range and scope of the current medical situation. We discussed the medical conditions, risks, benefits, outcomes, and goals of care at this time for the patient's medical issues at hand in the face of the patient's chronic issues and current presentation. Total time spent: 5 minutes were spent discussing the patient's resuscitation status, advance care planning, and end of life care, with patient and/or family/surrogate. Henry Shaw APRN - [facility] Division of Hospitalist Medicine [1] History reviewed. No pertinent past medical history. [2] History reviewed. No pertinent surgical history. [3] No family history on file. [4] Current Facility-Administered Medications: acetaminophen (Tylenol) tablet 650 mg, 650 mg, Oral, q6h PRN OR acetaminophen (Tylenol) suppository 650 mg, 650 mg, Rectal, q6h PRN, Shey Trujillo MD [START ON 11/01/2024] aspirin EC tablet 81 mg, 81 mg, Oral, Daily, Henry Shaw APRN - [facility] atorvastatin (Lipitor) tablet 80 mg, 80 mg, Oral, Nightly, Henry Shaw APRN - [facility] citalopram (CeleXA) tablet 10 mg, 10 mg, Oral, Daily, Henry Shaw APRN - [facility] dextrose 5 % infusion, 100 mL/hr, IntraVENous, PRN, Henry Shaw APRN - [facility] dextrose 50 % solution 12.5 g, 12.5 g, IntraVENous, PRN, Henry Shaw APRN - [facility] [START ON 11/01/2024] ferrous sulfate tablet 325 mg, 325 mg, Oral, Daily with breakfast, NIRMAL [place]ron[place] CNP gabapentin (Neurontin) capsule 100 mg, 100 mg, Oral, TID, Henry Shaw APRN - [facility] glucagon (human recombinant) injection 1 mg, 1 mg, IntraMUSCular, PRN, Henry Shaw APRN - [facility] glucose oral gel 15 g, 15 g, Oral, PRN, Henry Shaw APRN - [facility] Insulin Lispro (Humalog) injection 0-6 Units, 0-6 Units, SubCUTAneous, TID WC AND Insulin Lispro (Humalog) injection 0-6 Units, 0-6 Units, SubCUTAneous, Nightly, NIRMAL [place] CNP mirtazapine (Remeron) tablet 30 mg, 30 mg, Oral, Nightly, Henry Shaw APRN - [facility] polyethylene glycol (PEG) 3350 (Miralax) packet 17 g, 17 g, Oral, Daily PRN, Shey Trujillo MD prochlorperazine (Compazine) injection 5 mg, 5 mg, IntraVENous, q6h PRN, Shey Trujillo MD sodium chloride 0.9 % infusion, 5-250 mL/hr, IntraVENous, PRN, Shey Trujillo MD sodium chloride 0.9% (NS) flush 5-40 mL, 5-40 mL, IntraVENous, q12h, Shey Trujillo MD sodium chloride 0.9% (NS) flush 5-40 mL, 5-40 mL, IntraVENous, PRN, Shey Trujillo MD [5] No Known Allergies Cosigned by Shey Trujillo MD at 10/31/2024 2:45 PM EDT Associated attestation - Shey Trujillo MD - 10/31/2024 2:45 PM EDT Hospitalist Progress Note 10/31/[id number]: Please page me ([phone]) for patient care issues. [phone]: Please page [facility] night Hospitalist for any issues. Subjective: Admit Date: 10/31/2024 PCP: No primary care provider on file. Room#: H-6135/H-6135 A I have evaluated the patient and reviewed the case with the QING. I agree with the current plan of care including the workup, evaluation, management, and diagnosis. Care plan has been discussed. The documentation below has been reviewed. Greater than 51% of the 15 minute face to face encounter was spent discussing/counseling the patient regarding the care plan for this patient. The patient was seen and examined independently and relevant data reviewed by myself. A full chart review was performed (although limited data in chart). S:. On evaluation, patient very hard of hearing. Discussed with NICHELLE Ortiz patient's current acute issues including what we could find in the chart. He will reach out to other hospital the patient was recently at to get further information faxed over so that we can better determine next best course. Patient herself stating she would not want surgical intervention for her abdominal abscesses, however I discussed with her if she would need further intervention would she be open to it. At this time, states not sure until we can get more information for her to make a decision. Otherwise NIRMAL also discussed updates with son and facility. O: BP (!) 99/46 Pulse 94 Temp 36.7 C (98 F) (Temporal) Resp 18 Ht 4' 9" (1.448 m) Wt 73 lb (33.1 kg) SpO2 94% BMI 15.80 kg/m In bed, not in any acute distress on evaluation this morning. RN also at bedside obtaining labs. Other than being hard of hearing patient is oriented. BKA right side. PICC line in place in right upper arm area. A&P: Infected PICC line Abdominal fistula with abscesses Concern for osteo myelitis on imaging from outside facility (pelvic bone) - Admitting for further evaluation and management - Palliative care consult/patient wanting to be DNR CC but with needs for a lot of intervention although declining some - Continue in the meantime with conservative treatment including cultures, lab work for abscesses, removal of PICC line, infectious disease consult -Rest of plan as below, discussed in detail with NIRMAL Shaw CNP Total time spent (which include face to face and non face to face encounters) : 20 minutes Shey Trujillo MD Division of Hospitalist Medicine [facility] 2:38 PM 10/31/24 documented in this encounter [facility] 10-31-2024 Radiology Diagnostic study note [facility] 10-31-2024 Radiology Diagnostic study note [facility] 10-30-2024 Discharge summary Note Date/Time October 31, 2024 8:01am [facility] Medical Records Department [address] [place] [address] Emergency Department Summary 10/30/24 MR#: [id number] Acct: [id number] Name: YOKO EMANUEL Rep #:[id number] : 1955 69 From: Jesus Duncan PCP: Olya Piña MD Status:REG ER Location: ED ADDENDUM by Dr. Jason Mcduffie MD on 10/31/24 at 0801 Charge nurse and for me at 0801 the patient is asking for something for pain. She was asked for pain medicine throughout her stay. Since she is not hemic on stable and has vascular and reason for her pain we will treat with Dilaudid. 10/31/24 0801<Electronically signed by Jason Mcduffie MD> Cosigner Signature (if applicable): cc: Olya Piña MD ~* Signed ADDENDUM by Dr. Jason Mcduffie MD on 10/31/24 at 0759 I was informed by charge nurse that she received call from micro that patient has gram-negative rods and blood cultures that were drawn during this visit. Patient did receive piperacillin which should cover this. Will need to relate this information to [facility] where she was excepted for definitive care. 10/31/24 0755<Electronically signed by Jason Mcduffie MD> Cosigner Signature (if applicable): cc: Olya Piña MD ~* Signed HPI History of Present Illness Chief Complaint: Abn Labs [facility] Medical History (Updated 10/31/24 @ 00:43 by Mehran Weaver) Need for assistance with personal care Body mass index [BMI] 19.9 or less, adult Unspecified open wound of abdominal wall, unspecified quadrant without penetration into peritoneal cavity, sequela Pressure ulcer of right buttock Pressure ulcer of sacral region Non-pressure chronic ulcer left lower leg, limited to breakdown skin Hypoglycemia History of falling Encounter for orthopedic aftercare following surgical amputation Other malaise Other abnormalities of gait and mobility Muscle weakness (generalized) Other symbolic dysfunction Dysphagia Idiopathic peripheral autonomic neuropathy Iron deficiency anemia Failure to thrive Acquired absence of other right toe(s) Peripheral vascular disease Anemia Fistula of intestine Gangrene Osteomyelitis Severe protein-calorie malnutrition Home Medications ?Medication ?Instructions ?Recorded ?Last Taken ?Type aspirin 81 mg tablet 81 mg PO DAILY 10/31/24 Unkn own History atorvastatin 80 mg tablet (Lipitor) 80 mg PO QHS 10/31 Unknown History citalopram 10 mg tablet (Celexa) 10 mg PO QHS 10/31/24 Unknown History ferrous sulfate 325 mg (65 mg 325 mg PO DAILY 10/31/24 Unknown History iron) tablet (Feosol) gabapentin 100 mg capsule 100 mg PO DAILY 10/31/24 Unk nown History heparin (porcine) 5,000 unit/mL 5,000 unit subcut Q12H 10/31/24 Unknown History injection solution Allergy/AdvReac Type Severity Reaction Status Date / Time No Known Allergies Allergy Verified 10/30/24 23:43 Social History (System 09/19/24 @ 05:44 by Rachele Whitney) Smoking Status: Never smoker EXAM Physical Exam Const Vital Signs: 10/30/24 23:43 10/31/24 00:00 10/31/24 00:00 Temperature 97.8 F 97.8 F Temperature Source Oral Oral Pulse Rate 86 87 Respiratory Rate 19 H 20 H Respiratory Effort Respiratory Pattern Blood Pressure 102/59 L 106/46 L Blood Pressure Mean 73 66 Pulse Ox 92 92 Oxygen Delivery Method Room Air Room Air 10/31/24 00:51 10/31/24 01:24 10/31/24 01:51 Temperature 97.7 F L Temperature Source Temporal Pulse Rate 78 Respiratory Rate 15 Respiratory Effort Normal Respiratory Pattern Normal Blood Pressure 94/41 L 93/48 L Blood Pressure Mean 58 63 Pulse Ox 94 Oxygen Delivery Method 10/31/24 02:00 10/31/24 03:00 10/31/24 04:00 Temperature 97.9 F 97.7 F L 97.8 F Temperature Source Oral Oral Oral Pulse Rate 81 78 86 Respiratory Rate 13 15 15 Respiratory Effort Respiratory Pattern Blood Pressure 93/43 L 90/63 96/42 L Blood Pressure Mean 59 72 60 Pulse Ox 97 95 95 Oxygen Delivery Method Room Air 10/31/24 05:00 Temperature 97.6 F L Temperature Source Oral Pulse Rate 84 Respiratory Rate 14 Respiratory Effort Respiratory Pattern Blood Pressure 103/47 L Blood Pressure Mean 65 Pulse Ox 95 Oxygen Delivery Method MDM MDM MDM Narrative Medical decision making narrative: HISTORY OF PRESENT ILLNESS: Chief complaint: Abnormal lab 69-year-old female presents concern for abnormal labs. Per assisted report patient had positive blood cultures and the white blood cell count elevation which was concerning. 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 She notes chronic wounds to her feet that have been taken care of by podiatry in the past. She notes she was sent in because of abnormal blood work. She is overall a poor historian. Does not endorse any new symptoms other than shortness of breath. REVIEW OF SYSTEMS: Pertinent positives: Positive blood cultures, elevated white blood cell count, shortness of breath Pertinent negatives: Chest pain, vomiting PHYSICAL EXAM: Nursing triage notes reviewed, Vital signs reviewed Constitutional: please see mdm HENT: MMM Eyes: Pupils equal round and reactive to light, Extraocular muscles intact Neck: No stridor, no JVD, full neck ROM Lungs: Clear to auscultation, No wheezing or rales. No increased work of breathing, no conversational dyspnea, no accessory muscle use, no nasal flaring. No respiratory distress noted Heart: Regular rate and rhythm, No murmurs, No rubs and No gallops, 2+ distal pulses (radial, femoral, posterior tibial) in all extremities Abdomen: Soft, there is no tenderness, rigidity, rebound or guarding, no obvious peritoneal signs, no palpable pulsatile abdominal masses, no auscultated abdominal bruit : No CVAT Extremities: No edema Neuro: No new focal neurological deficits, cranial nerves II through XII intact, 5/5 strength in all present extremities. Intact sensation to light touch in all present extremities, 2+ reflexes bilateral patella tendons. Skin: No rash or lesions noted MEDICAL DECISION MAKING: Chief Complaint: please see HPI External records reviewed: Reviewed labs from earlier today CBC shows leukocytosis (19.4) suggestive of systemic elevation, this is uptrending markedly from prior studies which showed a white count of 8.6 and 11.3 respectively. BMP without significant [place] normalities, no sign of metabolic acidosis or endorgan hypoperfusion with a normal bicarb and anion gap. 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 Blas), general surgery (Dr. Raza), [facility] internal medicine (Dr. Moncada) MDM Narrative: The patient was initially hemodynamically stable, afebrile and nontoxic-appearing. Exam with stool pouring out of her known [place] cutaneous fistula, the patient would not allow me to examine bilateral feet which are wrapped in bandages. She also had a sacral decubitus ulcer. I considered the following differential diagnosis: Intra-abdominal infection, sepsis, pneumonia, UTI I obtained a broad lab and imaging workup. U sepsis order set obtained blood cultures urine culture. Obtain x-ray as well as CT scan abdomen pelvis and a urine sample. ALL IMAGES (IF OBTAINED) HAVE BEEN PERSONALLY REVIEWED AND INTERPRETED BY MYSELF. EKG with normal sinus rhythm rate 87, normal axis, normal intervals, no STEMI Lactate is wnl indicating no end-organ hypoperfusion and/or hypoxia. CBC with leukocytosis suggestive of systemic inflammation, noted severe anemia (similar to baseline), no thrombocytopenia Correlation studies within normal limits BMP without evidence of significant electrolyte abnormalities, no anion gap, no acute kidney injury. LFTs with slight elevation liver enzymes Urinalysis shows no evidence of urinary inflammation suggestive of UTI CT scan abdomen pelvis shows evidence of several intra-abdominal and bony abnormality osteomyelitis and iliac us abscess. Initially discussed with the hospitalist who wanted me to "clear" the case with surgery. Then discussed with our general surgeon here at [facility] who stated the patient would need transferred as he did not feel comfortable intervening surgically and thought the patient be better served at a institution with more resources including interventional radiology. Patient's chest x-ray was read reviewed personally also showed evidence of possible right lower lobe pneumonia. Given multiple source of infection patient was started on broad-spectrum antibiotics including vancomycin and Zosyn. Given hypoglycemia she was given a D5 drip and blood sugars were monitored throughout her ED course. Given patient needed likely surgery/interventional radiology for abscess patient was transferred to [facility] discussed with Dr. Fuller who accepted patient approximate 4 AM on 10/31/2024. Patient is awaiting a bed at this time. The patient and/or family, caregivers express understanding. The patient and/or family, caregivers agrees with the plan. Shared decision making: I will have a discussion with the patient and or visitors regarding risk/benefits of further testing or admission. They will be made aware of of the risk/benefits inherent in this decision they will be given the opportunity to voice understanding. Total critical care time today provided was at least 35 minutes. This excludes separately billable procedures. Critical care time (if documented) is secondary to the patient having high probability of clinically significant/life threatening deterioration in the patient's condition which required my urgent intervention. Impression: 1. Sepsis 2. Iliac abscess 3. Hyperglycemia Dispo: Transfer This note was generated with [employer] dictation software. It may contain incorrect words, spelling, and punctuation that were not noted in review of the chart prior to signing. Lab Data Labs: Laboratory Results - last 24 hr 10/30/24 10/31/24 10/31/24 23:57 01:15 01:39 WBC 11.9 H RBC 3.21 L Hgb 7.4 L Hct 22.9 L MCV 71.3 L MCH 23.1 L MCHC 32.3 RDW Std Deviation 44.6 H RDW Coeff of Berta 17.5 H Plt Count 267 MPV 11.4 Immature Gran % (Auto) 0.400 Neut % (Auto) 74.2 H Lymph % (Auto) 11.4 L [place] % (Auto) 11.0 H Eos % (Auto) 2.5 Baso % (Auto) 0.5 Absolute Neuts (auto) 8.8 H Absolute Lymphs (auto) 1.35 Nucleated RBC % 0 PT 14.8 INR 1.1 APTT 36.4 H Sodium 135 Potassium 3.8 Chloride 103 Carbon Dioxide 23.5 Anion Gap 9 BUN 19 Creatinine 0.34 L Estim Creat Clear Calc 44.95 L Est GFR (MDRD) Non-Af 111 BUN/Creatinine Ratio 56.9 H Glucose 31 L* Lactic Acid 1.2 Calcium 8.4 Total Bilirubin 0.33 AST 48 H ALT 60 H Alkaline Phosphatase 311 H Total Protein 5.5 L Albumin 2.4 L Globulin 3.1 Albumin/Globulin Ratio 0.8 L Urine Color Yellow Urine Clarity Clear Urine pH 5.0 Ur Specific [place] 1.020 Urine Protein 15 H Urine Glucose (UA) Normal Urine Ketones Negative Urine Occult Blood Negative Urine Nitrite Negative Urine Bilirubin Negative Urine Urobilinogen Normal Ur Leukocyte Esterase Negative Urine RBC 0 SEEN Urine WBC 0 SEEN Ur Squamous Epith Cells 0 SEEN Urine Bacteria 2+ Urine Mucus 2+ POC Glucose 98 10/31/24 03:30 WBC RBC Hgb Hct MCV MCH MCHC RDW Std Deviation RDW Coeff of Berta Plt Count MPV Immature Gran % (Auto) Neut % (Auto) Lymph % (Auto) [place] % (Auto) Eos % (Auto) Baso % (Auto) Absolute Neuts (auto) Absolute Lymphs (auto) Nucleated RBC % PT INR APTT Sodium Potassium Chloride Carbon Dioxide Anion Gap BUN Creatinine Estim Creat Clear Calc Est GFR (MDRD) Non-Af BUN/Creatinine Ratio Glucose Lactic Acid Calcium Total Bilirubin AST ALT Alkaline Phosphatase Total Protein Albumin Globulin Albumin/Globulin Ratio Urine Color Urine Clarity Urine pH Ur Specific [place] Urine Protein Urine Glucose (UA) Urine Ketones Urine Occult Blood Urine Nitrite Urine Bilirubin Urine Urobilinogen Ur Leukocyte Esterase Urine RBC Urine WBC Ur Squamous Epith Cells Urine Bacteria Urine Mucus POC Glucose 134 H Radiography Diagnostic Testing: Clinical Impression(s) from Imaging Studies Chest X-Ray 10/30/24 23:55 IMPRESSION: Mild bilateral basilar infiltrates, possibly multifocal pneumonia. Right PICC line is in good position. Reading Location: [id number] Abdomen/Pelvis CT 10/31/24 02:08 IMPRESSION: 1. Mild bilateral pleural effusions. 2. Passive atelectatic airspace disease of the lower lobes. 3. Fistulous tract is noted arising from the descending colon measuring 5.5 cm in its length extending to the left iliacus muscle. Secondary intramuscular iliacus abscess formation measuring 7.2 x 3.6 cm in its largest anteroposterior and transverse dimensions respectively. 4. Subsequent erosive changes of the corresponding aspect of the left iliac bone with periosteal reaction suggestive of osteomyelitis. 5. Secondary extension of the left iliacus abscess through the overlying soft tissues. 6. Diffuse thickening of the colon suggestive of colitis. 7. Diffuse thickening of the small bowel suggestive of enteritis. 8. Diffuse thickening of the stomach suggestive of gastritis. 9. No perforation or pneumatosis intestinalis is identified. 10. Soft tissue edema/ulcer overlying the tip of the coccyx without associated osteomyelitis or drainable soft tissue abscess. 11. Heavily calcified atheromatous plaques of the aorta and its branches. 12. Diffuse thickening of the bladder suggestive of cystitis. 13. Chronic changes of pelvic congestion syndrome. 14. Osteopenia. 15. Subacute osteoporotic compression fracture of L1 vertebral body. Reading Location: [id number] Discharge Plan Triage Chief Complaint: Abn Labs ED Provider: Jesus Curtis Dx/Rx/DC Orders Prescriptions: No Action aspirin 81 mg tablet 81 mg PO DAILY atorvastatin [Lipitor] 80 mg tablet 80 mg PO QHS citalopram [Celexa] 10 mg tablet 10 mg PO QHS ferrous sulfate [Feosol] 325 mg (65 mg iron) tablet 325 mg PO DAILY gabapentin 100 mg capsule 100 mg PO DAILY heparin (porcine) 5,000 unit/mL solution 5,000 unit subcut Q12H Primary Care Provider: Olya Piña Referrals: Olya Piña MD [Primary Care Provider] - Print Language: German What to do if you have Problems For any increased pain, shortness of breath, bleeding, nausea or vomiting, chestpain, or any unexpected problems, contact your Primary Care Provider. Call [facility] ([phone]) or report to the closest Emergency Room. Call 911 if necessary. 10/31/24 0610 <Electronically signed by Jesus Curtis DO> Cosigner Signature (if applicable): CC: Olya Piña MD ~ Signed [facility] Work Phone: [phone] NoteHNO ID: [id number] Author: JUDY TEMPLE LPN Service: ? Author Type: LICENSED NURSE Type: Progress Notes Filed: 09/26/2024 15:26 Note Text: REVIEW OF SYSTEMS: General: The patient denies fatigue, notes weight loss, notes weight gain, denies feeling hot, and denies feelings of cold. Eyes: The patient denies glaucoma, denies eye injury/surgery, does not wear glasses or contacts. Ear/Nose/Throat: The patient denies allergies, denies hayfever, denies ear infections, and denies bloody noses. Cardiovascular: The patient denies chest pain, denies heart disease, denies high blood pressure,denies cardiac stent, denies prior heart attack, denies irregular heart beat, denies high cholesterol, denies poor circulation, denies heart failure, other cardiac issues, denies claudication, denies cold feet, denies peripheral arterial stent. Respiratory: The patient denies tuberculosis, notes pneumonia, denies frequent cough, denies pulmonary embolism, denies shortness of breath, and denies coughing up blood. Gastrointestinal: The patient notes difficulty swallowing, denies acid reflux, denies ulcers, denies vomiting, denies jaundice/hepatitis, denies gallbladder problems, denies black or tarry stools, denies hemorrhoids, denies bleeding from rectum, denies diverticulitis, denies constipation, denies diarrhea, denies loss of stool control, and denies hernias. Kidney/Bladder: The patient denies kidney stones, denies urine infections, and denies bloody urine. Skin: The patient denies a history of skin cancer, denies bleeding/changing moles, and denies a history of skin rash. Neurologic: The patient denies a history of epilepsy/convulsions, denies headaches, denies head/spinal injuries, and denies stroke/TIA. Psychiatric: The patient denies psychiatric medications, denies depression, and denies voices, denies substance abuse. Endocrine: The patient denies thyroid disorders, notes diabetes, and denies hormonal problems. Hematologic: The patient denies a history of bruising, denies bleeding, and denies anemia, denies blood clots. Infections: The patient denies a history of measles and mumps, denies rheumatic fever, and denies sexually transmitted diseases. Musculoskeletal: The patient denies back pain/injury, denies back problems, denies sciatica, notes knee/foot trouble, denies arthritis, or denies gout. When was patient's last Mammogram screening? Unknown Last Colonoscopy[facility] of Present illness Narrative* Judy TempleJENA - 09/25/2024 9:55 AM EDT REVIEW OF SYSTEMS: General: The patient denies fatigue, notes weight loss, notes weight gain, denies feeling hot, and denies feelings of cold. Eyes: The patient denies glaucoma, denies eye injury/surgery, does not wear glasses or contacts. Ear/Nose/Throat: The patient denies allergies, denies hayfever, denies ear infections, and denies bloody noses. Cardiovascular: The patient denies chest pain, denies heart disease, denies high blood pressure,denies cardiac stent, denies prior heart attack, denies irregular heart beat, denies high cholesterol, denies poor circulation, denies heart failure, other cardiac issues, denies claudication, denies cold feet, denies peripheral arterial stent. Respiratory: The patient denies tuberculosis, notes pneumonia, denies frequent cough, denies pulmonary embolism, denies shortness of breath, and denies coughing up blood. Gastrointestinal: The patient notes difficulty swallowing, denies acid reflux, denies ulcers, denies vomiting, denies jaundice/hepatitis, denies gallbladder problems, denies black or tarry stools, denies hemorrhoids, denies bleeding from rectum, denies diverticulitis, denies constipation, denies diarrhea, denies loss of stool control, and denies hernias. Kidney/Bladder: The patient denies kidney stones, denies urine infections, and denies bloody urine. Skin: The patient denies a history of skin cancer, denies bleeding/changing moles, and denies a history of skin rash. Neurologic: The patient denies a history of epilepsy/convulsions, denies headaches, denies head/spinal injuries, and denies stroke/TIA. Psychiatric: The patient denies psychiatric medications, denies depression, and denies voices, denies substance abuse. Endocrine: The patient denies thyroid disorders, notes diabetes, and denies hormonal problems. Hematologic: The patient denies a history of bruising, denies bleeding, and denies anemia, denies blood clots. Infections: The patient denies a history of measles and mumps, denies rheumatic fever, and denies sexually transmitted diseases. Musculoskeletal: The patient denies back pain/injury, denies back problems, denies sciatica, notes knee/foot trouble, denies arthritis, or denies gout. When was patient's last Mammogram screening? Unknown Last Colonoscopy: Unknown Judy Temple LPN * Mia Shea MD - 09/25/2024 8:56 AM EDT Yoko Emanuel 1955 REFERRING PHYSICIAN: Olya Piña MD CHIEF COMPLAINT: No chief complaint on file. HPI: The patient is a 69 year old female presents with colocutaneous fistula. (Information via Clinisync is limited - history obtained from patient). CT scan findings on 08/10/2024 revealed distal transverse colon fistula to the skin with no surrounding inflammation. She states that this has been present for about 4 years. She states that prior to this, about 6-7 years ago, she had pain in the area and "a rupture". She had presented to her PCP and she states that "he didn't do anything". She has been trying to care for the fistula herself. She denies pain in the area. She notes normal bowel movements. She notes that occasional "corn" and "green beans" would emanate from the fistula site. She denies major abdominal surgeries (had tubes tied) She denies blood in her stools. She denies previous colonoscopy. She notes no colon cancer in immediate family. She is presently in the assisted for failure to thrive and generalized weakness and decreased appetite. She had been found in her home (living alone) with poor hygiene (maggots on body) and malnutrition. She is recently status post right foot surgery for osteomyelitis. 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 Eyes: The patient denies glaucoma, denies eye injury/surgery, does not wear glasses or contacts. Ear/Nose/Throat: The patient denies allergies, denies hayfever, denies ear infections, and denies bloody noses. Cardiovascular: The patient denies chest pain, denies heart disease, denies high blood pressure,denies cardiac stent, denies prior heart attack, denies irregular heart beat, denies high cholesterol, denies poor circulation, denies heart failure, other cardiac issues, denies claudication, denies cold feet, denies peripheral arterial stent. Respiratory: The patient denies tuberculosis, notes pneumonia, denies frequent cough, denies pulmonary embolism, denies shortness of breath, and denies coughing up blood. Gastrointestinal: The patient notes difficulty swallowing, denies acid reflux, denies ulcers, denies vomiting, denies jaundice/hepatitis, denies gallbladder problems, denies black or tarry stools, denies hemorrhoids, denies bleeding from rectum, denies diverticulitis, denies constipation, denies diarrhea, denies loss of stool control, and denies hernias. Kidney/Bladder: The patient denies kidney stones, denies urine infections, and denies bloody urine. Skin: The patient denies a history of skin cancer, denies bleeding/changing moles, and denies a history of skin rash. Neurologic: The patient denies a history of epilepsy/convulsions, denies headaches, denies head/spinal injuries, and denies stroke/TIA. Psychiatric: The patient denies psychiatric medications, denies depression, and denies voices, denies substance abuse. Endocrine: The patient denies thyroid disorders, notes diabetes, and denies hormonal problems. Hematologic: The patient denies a history of bruising, denies bleeding, and denies anemia, denies blood clots. Infections: The patient denies a history of measles and mumps, denies rheumatic fever, and denies sexually transmitted diseases. Musculoskeletal: The patient denies back pain/injury, denies back problems, denies sciatica, notes knee/foot trouble, denies arthritis, or denies gout. PHYSICAL EXAMINATION: General: The patient is 69 year old female, well nourished, well hydrated in no acute distress. Thepatient is oriented to time, place, and person. VITALS: Blood pressure 96/60, pulse 88, temperature 36.8 C (98.2 F), temperature source Temporal, resp. rate 14, height 154.9 cm (5' 1"), weight 35.8 kg (79 lb), SpO2 99%. There is no height or weight on file to calculate BMI. Head: Normal cephalic, atraumatic Eyes: pupils are equally round, sclera are clear/anicteric Neck is supple with no tracheal deviation Cardiac: normal heart sounds, regular Respiratory: Normal respiratory excursion and pattern. Abdominal exam: soft and benign, open wound left side, abdominal wall, with minimal serous drainagenoted Extremities: no clubbing, cyanosis or edema. Neuro: non focal Psych: normal mood The sensitive examination was discussed with the Patient or Patient's Authorized Board Runner. Asapplicable, any other physician, advance practice provider, medical student, or other health professional student that will be observing or involved in the sensitive examination for educational or training purposes was discussed with the Patient or Authorized Board Runner. The Patient or Authorized Board Runner has agreed to proceed with the sensitive examination. (Sensitive examination includes inspection and/or palpation of the breasts, pelvis, prostate and anorectal regions) Assessment IMPRESSION: colocutaneous fistula PLAN: I have discussed the above with the patient. I have recommended referral to a colorectal surgeon, probably [facility] or main [facility]. I will place consultation for above. The patient acknowledges the above I have answered all questions to the patient s satisfaction and the patient has no further questions. I have confirmed and edited as necessary, the PFSH and ROS obtained by others. Consultation requested by Dr. Olya Piña for an opinion regarding patient's colocutaneous fistula. My final recommendations will be communicated back to the requesting physician by way of shared Medical record or letter to requesting physician via US mail. . Diagnoses: (K63.2) Colocutaneous fistula (primary encounter diagnosis) I spent a total of 31 minutes on the date of the service which included preparing to see the patient with review of any pertinent laboratory studies/radiological imaging/medical records from other medical facilities, [id number] patient care, [facility], performing a medically appropriate examination, counseling and educating the patient/family/caregiver, and ordering consultation, and completing appropriate medical documentation. Mia Shea MD [facility] NoteHNO ID: [id number] Author: MIA SHEA MD Service: ? Author Type: Physician Type: Progress Notes Filed: 09/26/2024 15:26 Note Text: Yoko Emanuel 1955 REFERRING PHYSICIAN: Olya Piña MD CHIEF COMPLAINT: No chief complaint on file. HPI: The patient is a 69 year old female presents with colocutaneous fistula. (Information via Clinis[employer] is limited - history obtained from patient). CT scan findings on 08/10/2024 revealed distal transverse colon fistula to the skin with no surrounding inflammation. She states that this has been present for about 4 years. She states that prior to this, about 6-7 years ago, she had pain in the area and "a rupture". She had presented to her PCP and she states that "he didn't do anything". She has been trying to care for the fistula herself. She denies pain in the area. She notes normal bowel movements. She notes that occasional "corn" and "green beans" would emanate from the fistula site. She denies major abdominal surgeries (had tubes tied) She denies blood in her stools. She denies previous colonoscopy. She notes no colon cancer in immediate family. She is presently in the assisted for failure to thrive and generalized weakness and decreased appetite. She had been found in her home (living alone) with poor hygiene (maggots on body) and malnutrition. She is recently status post right foot surgery for osteomyelitis. 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 Eyes: The patient denies glaucoma, denies eye injury/surgery, does not wear glasses or contacts. Ear/Nose/Throat: The patient denies allergies, denies hayfever, denies ear infections, and denies bloody noses. Cardiovascular: The patient denies chest pain, denies heart disease, denies high blood pressure,denies cardiac stent, denies prior heart attack, denies irregular heart beat, denies high cholesterol, denies poor circulation, denies heart failure, other cardiac issues, denies claudication, denies cold feet, denies peripheral arterial stent. Respiratory: The patient denies tuberculosis, notes pneumonia, denies frequent cough, denies pulmonary embolism, denies shortness of breath, and denies coughing up blood. Gastrointestinal: The patient notes difficulty swallowing, denies acid reflux, denies ulcers, denies vomiting, denies jaundice/hepatitis, denies gallbladder problems, denies black or tarry stools, denies hemorrhoids, denies bleeding from rectum, denies diverticulitis, denies constipation, denies diarrhea, denies loss of stool control, and denies hernias. Kidney/Bladder: The patient denies kidney stones, denies urine infections, and denies bloody urine. Skin: The patient denies a history of skin cancer, denies bleeding/changing moles, and denies a history of skin rash. Neurologic: The patient denies a history of epilepsy/convulsions, denies headaches, denies head/spinal injuries, and denies stroke/TIA. Psychiatric: The patient denies psychiatric medications, denies depression, and denies voices, denies substance abuse. Endocrine: The patient denies thyroid disorders, notes diabetes, and denies hormonal problems. Hematologic: The patient denies a history of bruising, denies bleeding, and denies anemia, denies blood clots. Infections: The patient denies a history of measles and mumps, denies rheumatic fever, and denies sexually transmitted diseases. Musculoskeletal: The patient denies back pain/injury, denies back problems, denies sciatica, notes knee/foot trouble, denies arthritis, or denies gout. PHYSICAL EXAMINATION: General: The patient is 69 year old female, well nourished, well hydrated in no acute distress. The patient is oriented to time, place, and person. VITALS: Blood pressure 96/60, pulse 88, temperature 36.8 ?C (98.2 ?F), temperature source Temporal, resp. rate 14, height 154.9 cm (5' 1"), weight 35.8 kg (79 lb), SpO2 99%. There is no height or weight on file to calculate BMI. Head: Normal cephalic, atraumatic Eyes: pupils are equally round, sclera are clear/anicteric Neck is supple with no tracheal deviation Cardiac: normal heart sounds, regular Respiratory: Normal respiratory excursion and pattern. Abdominal exam: soft and benign, open wound left side, abdominal wall, with minimal serous drainage noted Extremities: no clubbing, cyanosis or edema. Neuro: non focal Psych: normal m (more content not included)...[facility] 09-20-2024 History of Present illness Narrative* Laurie Armstrong MD - 09/20/2024 10:15 AM EDT Images from the original note were not included. Referred by Dr. Zavala, Yadira Burkett MD Chief complaint: Chief Complaint Patient presents with right foot History of Present Illness Yoko Emanuel is a 69 y.o. year old female patient with history of severe protein calorie malnutrition, failure to thrive, right foot gangrene status post TMA on 08/17/2024 and severe PAD who is presenting for vascular evaluation. Patient was recently hospitalized after EMS brought her to the hospital due to precarious conditions at home. She appeared cachectic, found to have right foot gangrene with maggots, as well as left foot ulcer. She was also noted to have a colocutaneous fistula and with poor appetite, she was started on TPN. Patient also had CT that showed severe iliofemoral disease. ABIs were 0.2 bilaterally. [facility] for source control. Given advanced and severe PAD with severe inflow disease, as well as advanced malnutrition with colocutaneous fistula, she was deemed to be a poor surgical candidate for revascularization. Decision was made to provide palliative source control and wound care. Social History[1] Outpatient Medications: Current Outpatient Medications Medication Instructions acetaminophen (TYLENOL) 650 mg, oral, Every 4 hours PRN acetaminophen (TYLENOL) 650 mg, Every 4 hours PRN alum-mag hydroxide-simeth (Mylanta) 200-200-20 mg/5 mL oral suspension 20 mL, oral, 4 times daily PRN ascorbic acid (VITAMIN C) 500 mg, Daily atorvastatin (LIPITOR) 80 mg, oral, Daily benzonatate (TESSALON) 100 mg, oral, 3 times daily PRN, Do not crush or chew. bisacodyl (DULCOLAX) 10 mg, rectal, Daily PRN bisacodyl (FLEET BISACODYL) 10 mg, Once as needed Continue current TPN formula See AVS for most recent TPN formula. Clinimix 5/20 to run at 100ml/hr for 12 hours. OR Clinimix 5/20 at 50ml/hr for 24hrs. with 250ml 20% lipids gabapentin (NEURONTIN) 100 mg, 2 times daily GLUCAGON HCL INJ 1 mL, As needed glucose (Glutose) 40 % gel oral gel Once as needed guaiFENesin (HUMIBID 3) 400 mg, 3 times daily PRN guaiFENesin (Robitussin) 100 mg/5 mL syrup 10 mL, Every 4 hours PRN hydrogen peroxide 3 % external solution Topical, Daily PRN hydrOXYzine HCL (ATARAX) 25 mg, oral, Every 4 hours PRN insulin regular (HumuLIN R,NovoLIN R) 100 unit/mL injection Inject under the skin. Take as directedper sliding scale insulin instructions. lactobacillus (Culturelle) 10 billion cell capsule 1 capsule, 2 times daily magnesium hydroxide (Milk of Magnesia) 400 mg/5 mL suspension 30 mL, Every 24 hours PRN mirtazapine (REMERON) 15 mg, Nightly multivit infusn,adult 4,vit K (INFUVITE ADULT IV) 10 mL, Daily multivitamin tablet 1 tablet, Daily ondansetron (ZOFRAN) 4 mg, intravenous, Every 4 hours PRN oxyCODONE-acetaminophen (Percocet) 5-325 mg tablet 1 tablet, oral, Every 6 hours PRN piperacillin-tazobactam (Zosyn) 4.5 gram/100 mL IV 4.5 g, 4 times daily polyethylene glycol (GLYCOLAX, MIRALAX) 17 g, oral, Daily PRN sodium chloride 0.9% 100 mL/hr trace elements Zn-Cu-Mn-Se (Multitrace) 3 mg-0.3 mg-55 mcg-60 mcg/mL solution 1 mL traZODone (DESYREL) 50 mg, oral, Nightly PRN Vitals: Vitals: 09/20/24 1058 BP: 102/50 Pulse: 92 SpO2: 99% Physical Exam: General: NAD, in wheelchair, cachectic HEENT: moist mucous membranes, no jaundice Neck: No JVD, no carotid bruit Lungs: CTA efrain, no wheezing or rales Cardiac: RRR, no murmurs Abdomen: soft, non-tender, non-distended Extremities: 2+ radial pulses, both feet are wrapped Neurologic: AAOx3 Reviewed Study(s): Vascular US PVR without exercise 08/10/2024 [place] [address] [phone], Vascular Lab Report [facility] US PVR WITHOUT EXERCISE Patient Name: YOKO Wilson Physician: [id number] Hussein Singleton MD Study Date: 08/10/2024 Ordering Provider: [id number] LYNNETTE ALTAMIRANO MRN/PID: [id number] Fellow: Technologist: Shawn Cavazos RVT Date of /Age: 1 1955 Technologist 2: Violet Lord RVT/AB years Gender: F Admission Status: Inpatient Location [facility] Performed: Diagnosis/ICD: Atherosclerosis of [place] arteries of left leg with ulceration of other part of lower left leg-I70.248; Atherosclerosis of [place] arteries of right leg with ulceration of other part of lower right leg-I70.238 CPT Codes: 13278 Peripheral artery PVR (multi segmental pressure Pertinent History: 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 CRITICAL RESULT Critical Result: Bilateral severe disease Notification called to Dr. Altamirano on 08/10/2024 at 4:02:34 PM. Acknowledged critical results notification communicated via Secure chat by Figueroa Cavazos RVT. CONCLUSIONS: Right Lower PVR: There is evidence of severe multi vessel disease. Monophasic flow is noted in the right popliteal artery and right dorsalis pedis artery. Multiphasic flow is noted in the right common femoral artery. Unable to obtain a toe pressure due to bandage. Left Lower PVR: There is evidence of severe multi-vessel disease. Decreased digital perfusion noted. Monophasic flow is noted in the left dorsalis pedis artery, left posterior tibial artery and left popliteal artery. Multiphasic flow is noted in the left common femoral artery. Left PT was not audible. Imaging & Doppler Findings: RIGHT Lower PVR Pressures Ratios Right High Thigh 71 mmHg 0.84 Right Low Thigh 31 mmHg 0.36 Right Calf 30 mmHg 0.35 Right Posterior Tibial (Ankle) 23 mmHg 0.27 Right Dorsalis Pedis (Ankle) 23 mmHg 0.27 LEFT Lower PVR Pressures Ratios Left High Thigh 62 mmHg 0.73 Left Low Thigh 34 mmHg 0.40 Left Calf 17 mmHg 0.20 Left Dorsalis Pedis (Ankle) 18 mmHg 0.21 Left Digit (Great Toe) 0 mmHg 0.00 Right Left Brachial Pressure 85 mmHg 85 mmHg [id number] Hussein Singleton MD Final Assessment/Plan # Severe peripheral artery disease # Severe protein calorie malnutrition # Right foot chronic limb threatening ischemia status post TMA - Given advanced and severe PAD with severe inflow disease, as well as advanced malnutrition with colocutaneous fistula, she was deemed to be a poor surgical candidate for revascularization. Decisionwas made to provide palliative source control and wound care. - Patient understands that given her advanced disease and poor clinical condition she will likely need a BKA. She is not ready for amputation at this moment - Referral provided for palliative care Dr. Shadi Hennessy MD [facility] Interventional Cardiology Endovascular Interventions [email or web address] Disclaimer: This note was dictated by speech recognition, and every effort has been made to prevent any error in manager medicare marketing, however minor errors may be present [1] Social History Tobacco Use Smoking status: Former Types: Cigarettes Smokeless tobacco: Never Tobacco comments: Quit July 2024 Substance Use Topics Alcohol use: Not Currently Drug use: [facility]* Diagnosis Colocutaneous fistula- Primary Fistula of intestine, excluding rectum and anus [facility] Failure to thrive (child)- Primary Failure to thrive Other chronic osteomyelitis of right foot documented in [facility] Work Phone: Evaluation noteNo assessment information available [facility] Work Phone: Evaluation note* Diagnosis PICC line infection, initial encounter- Primary PICC line infection, initial encounter Decubitus ulcer of sacral region, unstageable (HCC) Severe malnutrition (CMS/HCC) (HCC) Nutritional marasmus [facility]* Diagnosis PICC line infection, initial encounter- Primary PICC line infection, initial encounter Decubitus ulcer of sacral region, unstageable (HCC) Severe malnutrition (CMS/HCC) (HCC) Nutritional marasmus Wound pain Palliative care encounter Severe malnutrition (CMS/HCC) (HCC) Nutritional marasmus [facility]* Diagnosis Pressure ulcer of sacral region, stage 3 (HCC)- Primary 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) Pressure ulcer of right heel, stage 3 (HCC) Pressure ulcer of left heel, stage 3 (HCC) Colocutaneous fistula Severe malnutrition (CMS/HCC) (HCC) Nutritional marasmus [facility]* Diagnosis Pressure ulcer of sacral region, stage 3 (HCC)- Primary 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 Shey Trujillo MD [address] [place] [address] Phone: tel: fax: [facility] Progressive [facility] [address] [place] [address] Phone: tel: Referral ID Status Reason Start Date Expiration Date Visits Re quested Visits Authorized [id number] [facility] N[facility]* Auth/Cert (Routine) Specialty Diagnoses / Procedures Referred By Contkanchan t Referred To Contact Diagnoses PICC line infection, initial encounter Iliacus Muscle Abscess Procedures . Shey Trujillo MD [address] [place] [address] Phone: tel: fax: [facility] [address] [place] [phone] Phone: tel: Referral ID Status Reason Start Date Expiration Date Visits Re quested Visits Authorized [id number] 1 1 [facility] Instructions * Patient Instructions - Pravin Vincent MD - 01/26/2017 4:08 PM EDT Formatting of this note may be different from the original. Problem List Items Addressed This Visit Endocrine Type 2 diabetes mellitus without complication, with long-term current use of insulin ([facility]) Your A1C is 5.5 which is almost too low.! Will reduce the medication that you are taking to 1/2 of the 1 mg pill of 0.5 mg per day. Relevant Medications glimepiride (AMARYL) 1 MG tablet Other Hypokalemia Will check you BMP today Relevant Orders Comprehensive Metabolic Panel Weight loss Relevant Medications glimepiride (AMARYL) 1 MG tablet Other Relevant Orders CBC and Differential Magnesium Sedimentation Rate Comprehensive Metabolic Panel Other Visit Diagnoses Type 2 diabetes mellitus without complication, without long-term current use of insulin (HCC) - Primary Relevant Medications glimepiride (AMARYL) 1 MG tablet Other Relevant Orders POC Glucose Device (Completed) POC Urinalysis Dipstick (Completed) POC Glycosylated Hemoglobin (Hb A1C) (Completed) Comprehensive Metabolic Panel in this encounter* Patient Instructions - Pravin Vincent MD - 03/29/2017 4:09 PM EDT Formatting of this note may be different from the original. 03/05/2017: CBC: WBC 8.6. RBC 4.14. Hemoglobin 10.2. Hematocrit 33.6. MCV 81.2. MCH 26.1 ((27.0-31.0). MCHC 32.1 (33.0-37.0). RDW 19.9 (11.5-14.5). Platelet count 468,000. MPV 6.7. decrease in percentage of lymphocytes 16% (10.0-55.0). Increase in percentage of monocytes 10.1% (0.0-10.0). Absolute monocyte count increased at 0.9 thousand (0.0-0.7). Sed rate 110 General chemistry: Glucose 83. BUN 15. Creatinine 1.0. Estimated GFR 56. Electrolytes all within normal limits. Liver panel all within normal limits. With the exception of the albumin globulin ratio.Albumin globulin ratio is 0.9 (1.1-1.9) albumin level 3.2 (3.2-5.0). Total protein 6.7 (6.4-8.3). Magnesium level 2.0. Summary: CBC suggests mild anemia. Red blood cells is somewhat pale with a decrease in MCH and MCHC. Increase in RDW suggest a mixed red blood cell type with fairly large fairly small red blood cells. Platelet count is elevated consistent with recent bone marrow stimulation, comments reason is recent blood loss. Decrease in percent of lymphocytes with an increase in percent of monocytes may be recent viral infection. Sed rate is markedly elevated at 110 and generally was represents a significant increase in inflammation in the body. This is a nonspecific test. Many things cause an elevation of these reactive proteins. Anemia can cause some sed rate elevation, but never to this degree. No evidence of diabetes, but estimated GFR of 56 is consistent with stage III chronic kidney kidney disease or very mild-moderate chronic kidney disease. The albumin to globulin ratio is slightly low consistent with possibly chronic loss related to kidney disease. Would like to obtain further testing including stool for occult blood, serum iron level as well as B12 and folic acid, will also like to obtain urine electrophoresis and antinuclear antibody. Problem List Items Addressed This Visit Genitourinary Chronic kidney disease (CKD) Very mild most likely due to age and diabetes. Relevant Orders Basic Metabolic Panel Other Diarrhea in adult patient Almost resolved. Elevated sed rate Would like to make sure there are no abnormal proteins in your blood. Will repeat it since you are feeling better. Relevant Orders Protein Electrophoresis, Serum Vitamin B12 Folate Hypochromic anemia You are still anemic and low on iron Relevant Orders Occult Blood Immunoassay Iron Study with Ferritin Hypokalemia Resolved and now normal. Relevant Orders Basic Metabolic Panel Hyponatremia Resolved with last labs on 03/05/2017 Relevant Orders Basic Metabolic Panel in this encounter Assessments Diagnosis Type 2 diabetes mellitus wit hout complication, without long-term current use of insulin (HCC) - Primary Weight loss Loss of weight Type 2 diabetes mellitus wit hout complication, with long-term current use of insulin (HCC) Hypokalemia Hypopotassemia Pedal edema Edema Diagnosis Stage 3 chronic kidney disea se Hypochromic anemia Elevated sed rate Elevated sedimentation rate Diarrhea in adult patient Hypokalemia Hypopotassemia Hyponatremia Hyposmolality and/or hyponatremia Summary Purpose Family History No Family History Records FoundNo Family History Records FoundNo Family History Records FoundNo Family History Records FoundNo Family History Records FoundNo Family History Records FoundNo Family History Records FoundNo Family History Records Found Advance Directives No Advanced Directives Records Found Advance Directive Response Recorded Date/ Time Do you have a Healthcare Power of Security Control Assessor? No October 31, 2024 12:51am Documents on File Type Date Recorded Patient Board Runner Expl anation DNR (Do Not Resuscitate) 10/31/2024 5:14 PM Date Activated Date Inactivated Comments 10/31/2024 2:44 PM Date Activated Date Inactivated Comments 10/31/2024 2:43 PM 10/31/2024 2:44 PM Question Answer Comments ICU transfer: Yes Intubation: No Date Activated Date Inactivated Comments 10/31/2024 11:12 AM 10/31/2024 2:43 PM Documents on File Type Date Recorded Patient Board Runner Expl anation DNR (Do Not Resuscitate) 11/09/2024 12:08 PM [place] DNR Form DNR (Do Not Resuscitate) 10/31/2024 5:14 PM Date Activated Date Inactivated Comments 10/31/2024 2:44 PM 11/09/2024 10:55 PM Documents on File Type Date Recorded Patient Board Runner Expl anation DNR (Do Not Resuscitate) 11/22/2024 8:37 AM DNR DNR (Do Not Resuscitate) 11/09/2024 12:08 PM [place] DNR Form DNR (Do Not Resuscitate) 10/31/2024 5:14 PM Date Activated Date Inactivated Comments 10/31/2024 2:44 PM 11/09/2024 10:55 PM Date Activated Date Inactivated Comments 10/31/2024 2:43 PM 10/31/2024 2:44 PM Question Answer Comments ICU transfer: Yes Intubation: No Date Activated Date Inactivated Comments 10/31/2024 11:12 AM 10/31/2024 2:43 PM Chief Complaint and Reason for Visit Chief Complaint Admit Date LAB WORK August 25, 2024 6:4 5am LAB WORK August 28, 2024 4:0 0am LABWORK August 30, 2024 5:00 am LABWORK September 01, 2024 5:00 am LABWORK September 04, 2024 5:00 am LABWORK September 06, 2024 5:00 am LAB WORK September 08, 2024 5:0 0am LAB WORK September 11, 2024 5:5 0am LABWORK September 13, 2024 5:0 0am LABWORK September 15, 2024 5:0 0am LAB WORK September 18, 2024 5:0 0am LABWORK September 20, 2024 5:0 0am LABWORK September 22, 2024 5:0 0am LAB WORK September 25, 2024 5:0 0am LABWORK September 27, 2024 5:2 0am LABWORK September 29, 2024 5:00am LAB WORK October 02, 2024 5:00am LAB WORK October 04, 2024 5:00am LABWORK October 06, 2024 5:00am LAB WORK October 09, 2024 5:00a m LABWORK October 12, 2024 5:00a m LAB WORK October 18, 2024 4:00a m abn labs October 30, 2024 11:41 pm Additional Source Comments Assessment & Plan Note - Pravin Vincent MD - 03/29/2017 4:19 PM EDTAssessment & Plan Note - Pravin Vincent MD - 03/29/2017 4:18 PM EDT Miscellaneous Notes (unrecog nized section and content) Associated Problem(s): Hyponatremia Resolved with last labs on 03/05/2017 Associated Problem(s): Hypokalemia Resolved and now normal. Associated Problem(s): Diarrhea in adult patient Almost resolved. Associated Problem(s): Elevated sed rate Would like to make sure there are no abnormal proteins in your blood. Will repeat it since you are feeling better. Associated Problem(s): Hypochromic anemia You are still anemic and low on iron Associated Problem(s): Chronic kidney disease (CKD) Very mild most likely due to age and diabetes.in this encounter INFORMATION SOURCE (unrecogn ized section and content) DATE CREATED AUTHOR 11/23/2017 [facility] DATE CREATED AUTHOR AUTHOR'S ORGANIZ ATION 11/24/2017 [facility] DATE CREATED AUTHOR AUTHOR'S ORGANIZ ATION 08/12/2024 [facility] DATE CREATED AUTHOR AUTHOR'S ORGANIZ ATION 09/08/2024 [facility] DATE CREATED AUTHOR AUTHOR'S ORGANIZ ATION 10/04/2024 [facility] DATE CREATED AUTHOR AUTHOR'S ORGANIZ ATION 10/05/2024 [facility] DATE CREATED AUTHOR AUTHOR'S ORGANIZ ATION 11/21/2024 [facility] DATE CREATED AUTHOR AUTHOR'S ORGANIZ ATION 11/25/2024 [facility] Source Comments (unrecognize d section and content) In the event this informatio n is protected by the Federal Confidentiality of Alcohol and Drug Abuse Patient Records regulations: The Federal rules restrict any use of the information to criminally investigate or prosecute any alcohol or drug abuse patient.[facility] Reason for Visit (unrecogniz ed section and content) Reason Comments Consult Reason Comments right foot Reason Comments Wound Care Abdominal fistula Care Teams (unrecognized sec tion and content) Team Status: Active Member Role Status Dates Dr. Olya Piña MD Primary Care Provider Active Team Status: Active Member Role Status Dates Dr. Olya SNYDER MD Attending Provider Active Start: August 25, 2024 Dr. Olya SNYDER MD Referring Provider Active Start: August 25, 2024 Team Status: Active Member Role Status Dates Dr. Olya SNYDER MD Attending Provider Active Start: August 26, 2024 Team Status: Active Member Role Status Dates Dr. Olya SNYDER MD Attending Provider Active Start: August 28, 2024 Dr. Olya SNYDER MD Referring Provider Active Start: August 28, 2024 Team Status: Active Member Role Status Dates Dr. Olya SNYDER MD Attending Provider Active Start: August 30, 2024 Team Status: Active Member Role Status Dates Dr. Olya SNYDER MD Attending Provider Active Start: September 01, 2024 Team Status: Active Member Role Status Dates Dr. Olya SNYDER MD Attending Provider Active Start: September 04, 2024 Team Status: Active Member Role Status Dates Dr. Olya SNYDER MD Attending Provider Active Start: September 06, 2024 Team Status: Active Member Role Status Dates Dr. Olya SNYDER MD Attending Provider Active Start: September 08, 2024 Team Status: Active Member Role Status Dates Dr. Olya SNYDER MD Attending Provider Active Start: September 11, 2024 Dr. Olya SNYDER MD Referring Provider Active Start: September 11, 2024 Team Status: Active Member Role Status Dates Dr. Olya SNYDER MD Attending Provider Active Start: September 13, 2024 Team Status: Active Member Role Status Dates Dr. Olya SNYDER MD Attending Provider Active Start: September 15, 2024 Team Status: Active Member Role Status Dates Dr. Olya SNYDER MD Attending Provider Active Start: September 18, 2024 Team Status: Active Member Role Status Dates Dr. Olya SNYDER MD Attending Provider Active Start: September 20, 2024 Team Status: Active Member Role Status Dates Dr. Olya SNYDER MD Attending Provider Active Start: September 22, 2024 Team Status: Active Member Role Status Dates Dr. Olya SNYDER MD Attending Provider Active Start: September 25, 2024 Team Status: Active Member Role Status Dates Dr. Olya SNYDER MD Attending Provider Active Start: September 27, 2024 Team Status: Active Member Role Status Dates Dr. Olya SNYDER MD Attending Provider Active Start: September 29, 2024 Team Status: Active Member Role Status Dates Dr. Olya SNYDER MD Attending Provider Active Start: October 02, 2024 Team Status: Active Member Role Status Dates Dr. Olya SNYDER MD Attending Provider Active Start: October 04, 2024 Team Status: Active Member Role Status Dates Dr. Olya SNYDER MD Attending Provider Active Start: October 06, 2024 Team Status: Active Member Role Status Dates Dr. Olya SNYDER MD Attending Provider Active Start: October 09, 2024 Team Status: Active Member Role Status Dates Dr. Olya SNYDER MD Attending Provider Active Start: October 12, 2024 Team Status: Active Member Role Status Dates Dr. Olya SNYDER MD Attending Provider Active Start: October 16, 2024 Team Status: Active Member Role Status Dates Dr. Olya SNYDER MD Attending Provider Active Start: October 18, 2024 Dr. Olya SNYDER MD Referring Provider Active Start: October 18, 2024 Team Status: Active Member Role Status Dates Dr. Olya SNYDER MD Attending Provider Active Start: October 24, 2024 Team Status: Active Member Role Status Dates Dr. Olya SNYDER MD Attending Provider Active Start: October 26, 2024 Team Status: Active Member Role Status Dates Dr. Olya SNYDER MD Attending Provider Active Start: October 30, 2024 Team Status: Inactive Member Role Status Dates Dr. Jesus Curtis DO Emergency Provider Active Start: October 30, 2024 End: October 31, 2024 Dr. Olya Piña MD Primary Care Provider Active Start: October 30, 2024 End: October 31, 2024 Accounts Payable Processor Relationship Specialty Start Date End Date Henry Shaw I, NIRMAL - [facility] [address] [place] [address] Nurse Practitioner Nurse Practitioner 10/31/24 10/31/24 Accounts Payable Processor Relationship Specialty Start Date End Date Henry Shaw I NIRMAL - [facility] [address] [place] [address] Nurse Practitioner Nurse Practitioner 10/31/24 10/31/24 Goals (unrecognized section and content) Goals may be documented in a n alternate section Scheduled Active and Recently Administ ered Medications (unrecognized section and content) Medication Order 10/30/2024 10/31/2024 11/01/2024 aspirin EC tablet 81 mg 81 mg, Oral, Daily, First dose on Wed11/01/24 at 0900, Do not crush, chew, or split. 0824 (Given - Provid er: Peri Grajeda RN) atorvastatin (Lipitor) tablet 80 mg 80 mg, Oral, Nightly, First dose on Wed10/31/24 at 2100 2020 (Given - Provider: Gissell Jean Baptiste RN) 2122 (Given - Provider: Jeane Romero, ASIA) citalopram (CeleXA) tablet 10 mg 10 mg, Oral, Daily, First dose on Wed10/31/24 at 1130 1405 (Given - Provider: Eileen Patrick RN) 0824 (Given - Provider: Peri Grajeda, ASIA) enoxaparin (Lovenox) syringe 30 mg 30 mg, SubCUTAneous, Every 24 hours scheduled (Daily), First dose on Wed10/31/24 at 1415, Indication of Use: Prophylaxis-DVT/PE, Indications: Prophylaxis of Venous Thromboembolism 1618 (Given - Provider: Eileen Patrick, ASIA) 0824 (Given - Provider: Peri Grajeda, ASIA) ferrous sulfate tablet 325 mg 325 mg, Oral, Daily with breakfast, First dose on Wed11/01/24 at 0800 0824 (Given - Provid er: Peri Grajeda RN) gabapentin (Neurontin) capsule 100 mg (CANCELED) 100 mg, Oral, 3 times daily, First dose on Wed10/31/24 at 1400 1405 (Given - Provider: Eileen Patrick RN)2211 (Given - Provider: Gissell Jean Baptiste RN) 0824 (Given - Provider: Peri Grajeda RN)1403 (Given - Provider: Peri Grajeda RN) gabapentin (Neurontin) capsule 300 mg 300 mg, Oral, 2 times daily, First dose (after last modification) on Wed11/01/24 at 2100 2123 (Given - Provid er: Jeane Romero RN) Insulin Lispro (Humalog) injection 0-6 Units(Linked Group 1) 0-6 Units, SubCUTAneous, 3 times daily with meals, First dose on Wed10/31/24 at 1200, Low Dose Correction Algorithm Glucose: Dose: LESS than 150 No Insulin 150-199 1 Unit 200-249 2 Units 250-299 3 Units 300-349 4 Units 350-400 5 Units Above 400 6 Units 1358 (Not Given - Provider: Eileen Patrick RN - Reason: Patient/family refused)1618 (Not Given - Provider: Eileen Patrick RN - Reason: Order parameters not met) 0818 (Not Given - Provider: Peri Grajeda RN - Reason: Order parameters not met)1333 (Not Given - Provider: Peri Grajeda RN - Reason: Order parameters not met)1744 (Not Given - Provider: Peri Grajeda RN - Reason: Order parameters not met) Insulin Lispro (Humalog) injection 0-6 Units(Linked Group 1) 0-6 Units, SubCUTAneous, Nightly, First dose on Wed10/31/24 at 2100, If eating or bolus tube feeding: Low Dose Correction Algorithm Glucose: Dose: LESS than 150 No Insulin 150-199 1 Unit 200-249 2 Units 250-299 3 Units 300-349 4 Units 350-400 5 Units Above 400 6 Units 2045 (Not Given - Provider: Gissell Jean Baptiste RN - Reason: Order parameters not met) 2132 (Not Given - Provider: Jeane Romero RN - Reason: Order parameters not met) lactated ringers bolus 1,000 mL (COMPLETED) 1,000 mL, IntraVENous, at 500 mL/hr, Administer over 2 Hours, Once, On Wed11/01/24 at 0815, For 1 dose 0824 (New Bag - Provider: Peri Grajeda RN)1048 (Stopped - Provider: Peri Grajeda RN) mirtazapine (Remeron) tablet 30 mg 30 mg, Oral, Nightly, First dose on Wed10/31/24 at 2100 2020 (Given - Provider: Gissell Jean Baptiste RN) 2122 (Given - Provider: Jeane Romero, RN) piperacillin-tazobactam (Zosyn) 4,500 mg in sodium chloride 0.9 % 100 mL IVPB Mini-Bag Plus (COMPLETED) 4,500 mg, IntraVENous, at 33.3 mL/hr, Administer over 3 Hours, Once, On Wed10/31/24 at 1430, For 1 dose, Mini-Bag Plus bag, Suspected Indication (Select all that apply): Skin and Soft Tissue Infection 1617 (New Bag - Provider: Eileen Patrick RN)1917 (Stopped - Provider: Gissell Jean Baptiste RN) piperacillin-tazobactam (Zosyn) 4,500 mg in sodium chloride 0.9 % 100 mL IVPB Mini-Bag Plus 4,500 mg, IntraVENous, at 33.3 mL/hr, Administer over 3 Hours, Every 6 hours, First dose (after last modification) on Wed10/31/24 at 2100, *Adjusted dose from 3.375g IV q6h for estimated CRCl > 40mL/min per P&T policy. Original start date = 10/31/24* Mini-Bag Plus bag, Suspected Indication (Select all that apply): Skin and Soft Tissue Infection 2211 (New Bag - Provider: Gissell Jean Baptiste RN) 0111 (Stopped - Provider: Gissell Jean Baptiste, ASIA)0258 (New Bag - Provider: Gissell Jean Baptiste, ASIA)0558 (Stopped - Provider: Gissell Jean Baptiste, ASIA)0824 (New Bag - Provider: Peri Grajeda RN)1142 (Stopped - Provider: Peri Grajeda RN)1520 (New Bag - Provider: Peri Grajeda RN)2122 (New Bag - Provider: Jeane Romero, RN)213 (Stopped - Provider: Jeane Romero, RN) sodium chloride 0.9% (NS) flush 5-40 mL 5-40 mL, IntraVENous, Every 12 hours, First dose on Wed10/31/24 at 1115, For Line Patency: Peripheral IV = 5 mL; Midline or Central Line = 10 mL/lumen. If following IV push medication, administer flush at same rate as the IV push. Flush volume is determined by type of infusion therapy being given. For non-viscous solutions use: Peripheral IV = 5 mL Midline or Central Line = 10 mL/lumen For viscous solutions (i.e. blood components, parenteral nutrition, contrast media, or after obtaining blood sample) use: Peripheral IV = 10 mL Midline or Central Line = 20 mL/lumen 1404 (Given - Provider: Eileen Patrick RN)2027 (Given - Provider: Gissell Jean Baptiste RN) 114 (Not Given - Provider: Peri Grajeda RN - Reason: IV Fluids Infusing)2315 (Due) stomahesive in petrolatum (ET Mix) Topical, Every 8 hours, First dose on Wed11/01/24 at 1230, Apply to sacrum 1459 (Given - Provid er: Peri Grajeda RN)2122 (Given - Provider: Jeane Romero RN) vancomycin (Vancocin) 500 mg in sodium chloride 0.9 % 100 mL IVPB 500 mg (rounded from 496.5 mg = 15 mg/kg 33.1 kg), IntraVENous, at 100 mL/hr, Administer over 60 Minutes, Every 12 hours, First dose on Wed11/01/24 at 0900, ADD-A[place]worth bag, Suspected Indication (Select all that apply): Skin and Soft Tissue Infection 1049 (Given - Provid er: Peri Grajeda RN)2122 (Given - Provider: Jeane Romero RN) vancomycin (Vancocin) 750 mg in sodium chloride 0.9 % 250 mL IVPB (COMPLETED) 750 mg, IntraVENous, at 250 mL/hr, Administer over 60 Minutes, Once, On Wed10/31/24 at 1530, For 1 dose, ADD-[place] bag, Suspected Indication (Select all that apply): Skin and Soft Tissue Infection 2019 (New Bag - Provider: Gissell Jean Baptiste RN)2119 (Stopped - Provider: Gissell Jean Baptiste RN) Continuous Medication Order 10/30/2024 10/31/2024 11/01/2024 sodium chloride 0.9 % infusion 100 mL/hr, IntraVENous, Continuous, Starting on Wed11/01/24 at 0815, For 2 days 1049 (New Bag - Prov ider: Peri Grajeda RN)1216 (Rate/Dose Verify - Provider: Peri Grajeda RN)2124 (New Bag - Provider: Jeane Romero RN) PRN Medication Order 10/30/2024 10/31/2024 11/01/2024 dextrose 5 % infusion 100 mL/hr, IntraVENous, PRN, Blood sugar less than 70mg/dL, Starting on Wed10/31/24 at 1125, Start infusion following administration of dextrose 50% or glucagon. dextrose 50 % solution 12.5 g 12.5 g, IntraVENous, PRN, low blood sugar, Blood glucose less than 70 mg/dL and patient NOT ALERT or NPO., Starting on Wed10/31/24 at 1125, If patient does not respond within 5 minutes, repeat dose x1. Start D5W at 100 mL/hour until ordering provider can be reached. Repeat blood glucose in 15 minutes. If blood glucose is less than 70 mg/dL, repeat treatment and recheck blood glucose in 15 minutes x2. If using Glucostabilizer, dose as instructed per system. glucagon (human recombinant) injection 1 mg 1 mg, IntraMUSCular, PRN, low blood sugar, Blood glucose less than 70 mg/dL and patient NOT ALERT or NPO and does not have IV access., Starting on Wed10/31/24 at 1125, After administration, attempt intravenous access and start D5W at 100 mL/hr. Repeat blood glucose in 15 minutes x2 and notify provider. glucose oral gel 15 g 15 g, Oral, As needed, low blood sugar, Starting on Wed10/31/24 at 1125, If blood glucose less than 50 mg/dL and patient ALERT and NOT NPO, give 2 tubes glucose gel. If blood glucose less than 70 mg/dL and patient ALERT and NOT NPO, give 1 tube glucose gel. Repeat blood glucose in 15 minutes. If blood glucose is less than 70 mg/dL, repeat treatment and recheck blood glucose in 15 minutes x2 and notify provider. iopamidol (Isovue-370) 76 % injection 75 mL (COMPLETED) 75 mL, IntraVENous, IMG once PRN, contrast, Starting on Wed10/31/24 at 1633, For 1 dose 1633 (Given - Provider: Byron Canales, RT (R)(CT)) naloxone (Narcan) injection 0.4 mg 0.4 mg, IntraVENous, Every 5 min PRN, opioid reversal, respiratory depression, Starting on Wed10/31/24 at 1326, +++ For RR <10, pinpoint pupils, over sedation for opioid reversal - MUST notify commercial pest control representative provider immediately after first dose, may give IM or SQ if no IV access +++ oxyCODONE (Roxicodone) immediate release tablet 5 mg 5 mg, Oral, Every 4 hours PRN, mild pain (1-3), moderate pain (4-6), severe pain (7-10), Starting on Wed11/01/24 at 1420 oxyCODONE-acetaminophen (Percocet) 5-325 MG per tablet 1 tablet (CANCELED) 1 tablet, Oral, Every 6 hours PRN, severe pain (7-10), moderate pain (4-6), Starting on Wed10/31/24 at 1323, For 2 days, Maximum dose of acetaminophen is 4000 mg from all sources in 24 hours. 1405 (Given - Provider: Eileen Patrick RN)2020 (Given - Provider: Gissell Jean Baptiste, ASIA) 0258 (Given - Provider: Gissell Jean Baptiste, ASIA)0823 (Given - Provider: Peri Grajeda, ASIA)1403 (Given - Provider: Peri Grajeda, RN) polyethylene glycol (PEG) 3350 (Miralax) packet 17 g 17 g, Oral, Daily PRN, constipation, Starting on Wed10/31/24 at 1111, 1st line for treatment of constipation - give scheduled if no bowel movement in past 24 hours. prochlorperazine (Compazine) injection 5 mg 5 mg, IntraVENous, Every 6 hours PRN, nausea, vomiting, Starting on Wed10/31/24 at 1229 sodium chloride 0.9 % infusion 5-250 mL/hr, IntraVENous, PRN, if patient receiving piggyback infusions and maintenance fluids are not ordered OR KVO fluids to protect IV site / prevent frequent line interruptions / long duration, Starting on Wed10/31/24 at 1111, For piggyback infusion, administer at same rate as piggyback for a total of 25 mL. Enter 25 mL into dose field and piggyback rate into rate field of order. If piggyback is infusing at a rate less than 100 mL/hr, enter 25 mL into dose field and 100 mL/hr into rate field of order. For KVO fluids, enter rate of 20 mL/hr or less into rate field of order. sodium chloride 0.9 % infusion 250 mL/hr, IntraVENous, Administer over 10 Minutes, As needed, For use in priming line prior to transfusion (prime via gravity) and flush line post transfusion, Starting on Wed11/01/24 at 0245, For 1 dose, For use in priming line prior to transfusion (prime via gravity) and flush line post transfusion ONLY. Discontinue once line has been cleared of remaining blood product. sodium chloride 0.9% (NS) flush 5-40 mL 5-40 mL, IntraVENous, PRN, line care, After every IV line use, Starting on Wed10/31/24 at 1111, For Line Patency: Peripheral IV = 5 mL; Midline or Central Line = 10 mL/lumen. If following IV push medication, administer flush at same rate as the IV push. Flush volume is determined by type of infusion therapy being given. For non-viscous solutions use: Peripheral IV = 5 mL Midline or Central Line = 10 mL/lumen For viscous solutions (i.e. blood components, parenteral nutrition, contrast media, or after obtaining blood sample) use: Peripheral IV = 10 mL Midline or Central Line = 20 mL/lumen stomahesive in petrolatum (ET Mix) Topical, PRN, dry skin, Starting on Wed11/01/24 at 1225 Linked Groups Order Group 1: Insulin Lispro (Humalog) injection 0-6 UnitsJump to med 0-6 Units, SubCUTAneous, 3 times daily with meals, First dose on Wed10/31/24 at 1200, Low Dose Correction Algorithm Glucose: Dose: LESS than 150 No Insulin 150- 199 1 Unit 200-249 2 Units 250-299 3 Units 300-349 4 Units 350-400 5 Units Above 400 6 Units And Insulin Lispro (Humalog) injection 0-6 UnitsJump to med 0-6 Units, SubCUTAneous, Nightly, First dose on Wed10/31/24 at 2100, If eating or bolus tube feeding: Low Dose Correction Algorithm Glucose: Dose: LESS than 150 No Insulin 150-199 1 Unit 200-249 2 Units 250-299 3 Units 300-349 4 Units 350-400 5 Units Above 400 6 Units Scheduled Medication Order 11/07/2024 11/08/2024 11/09/2024 amoxicillin-clavulanate (Augmentin) 875-125 MG per tablet 1 tablet 1 tablet (875 mg), Oral, Every 12 hours scheduled (2 times per day), First dose on Wed11/08/24 at 2100, For 6 days, Suspected Indication (Select all that apply): Bloodstream Infection 2126 (Given - Provider: Jaylin Angel, RN) 0943 (Given - Provider: Kirsten Montano RN)2099 (Canceled Entry - Provider: Automatic Discharge Provider - Comment: Automatically canceled at discontinue of medication order) aspirin EC tablet 81 mg 81 mg, Oral, Daily, First dose on Wed11/01/24 at 0900, Do not crush, chew, or split. 0828 (Given - Provider: Kirsten Montano RN) 1042 (Given - Provider: Trinity Rodney, ASIA) 0936 (Given - Provider: Kirsten Montano, ASIA) atorvastatin (Lipitor) tablet 80 mg 80 mg, Oral, Nightly, First dose on Wed10/31/24 at 2100 2019 (Given - Provider: Jaylin Angel, ASIA) 2126 (Given - Provider: Jaylin Angel, ASIA) 2100 (Canceled Entry - Provider: Automatic Discharge Provider - Comment: Automatically canceled at discontinue of medication order) citalopram (CeleXA) tablet 10 mg 10 mg, Oral, Daily, First dose on Wed10/31/24 at 1130 0828 (Given - Provider: Kirsten Montano RN) 1042 (Given - Provider: Trinity Rodney, ASIA) 0936 (Given - Provider: Kirsten Montano, ASIA) collagenase 250 UNIT/GM ointment Topical, Daily, First dose on Wed11/07/24 at 1215, Sacrum and left heel wounds 1450 (Given - Provider: Kirsten Montano, ASIA) 1630 (Given - Provider: Trinity Volcansek, RN - Comment: with dressing change) 0936 (Given - Provider: Kirsten Montano RN) enoxaparin (Lovenox) syringe 30 mg 30 mg, SubCUTAneous, Every 24 hours scheduled (Daily), First dose on Wed10/31/24 at 1415, Indication of Use: Prophylaxis-DVT/PE, Indications: Prophylaxis of Venous Thromboembolism 0828 (Given - Provider: Kirsten Montano RN) 1042 (Given - Provider: Trinity Rodney RN) 0936 (Given - Provider: Kirsten Montano RN) ferrous sulfate tablet 325 mg 325 mg, Oral, Daily with breakfast, First dose on Wed11/01/24 at 0800 0828 (Given - Provider: Kirsetn Montano RN) 1042 (Given - Provider: Trinity Rodney RN) 0936 (Given - Provider: Kirsten Montano RN) gabapentin (Neurontin) capsule 300 mg 300 mg, Oral, 3 times daily, First dose (after last modification) on Wed11/06/24 at 0900 0828 (Given - Provider: Kirsten Montano RN)1520 (Given - Provider: Kirsten Montano RN)2020 (Given - Provider: Jaylin Angel RN) 1042 (Given - Provider: Trinity Rodney RN)1427 (Given - Provider: Trinity Rodney RN)2127 (Given - Provider: Jaylin Angel RN) 0936 (Given - Provider: Kirsten Montano RN)1244 (Given - Provider: Kirsten Montano RN)2100 (Canceled Entry - Provider: Automatic Discharge Provider - Comment: Automatically canceled at discontinue of medication order) Insulin Lispro (Humalog) injection 0-6 Units(Linked Group 1) 0-6 Units, SubCUTAneous, 3 times daily with meals, First dose on Wed10/31/24 at 1200, Low Dose Correction Algorithm Glucose: Dose: LESS than 150 No Insulin 150-199 1 Unit 200-249 2 Units 250-299 3 Units 300-349 4 Units 350-400 5 Units Above 400 6 Units 0911 (Not Given - Provider: Kirsten Montano RN - Reason: Order parameters not met)1256 (Not Given - Provider: Kirsten Montano RN - Reason: Order parameters not met)1734 (Not Given - Provider: Kirsten Montano RN - Reason: Order parameters not met) 0741 (Not Given - Provider: Trinity Rodney RN - Reason: Order parameters not met - Comment: 101)1227 (Not Given - Provider: Trinity Rodney RN - Reason: Order parameters not met - Comment: 108)1631 (Not Given - Provider: Trinity Rodney RN - Reason: Order parameters not met - Comment: 105) 0800 (Not Given - Provider: Kirsten Montano RN - Reason: Order parameters not met)1243 (Not Given - Provider: Kirsten Montano RN - Reason: Order parameters not met)1834 (Not Given - Provider: Kirsten Montano RN - Reason: Order parameters not met) Insulin Lispro (Humalog) injection 0-6 Units(Linked Group 1) 0-6 Units, SubCUTAneous, Nightly, First dose on Wed10/31/24 at 2100, If eating or bolus tube feeding: Low Dose Correction Algorithm Glucose: Dose: LESS than 150 No Insulin 150-199 1 Unit 200-249 2 Units 250-299 3 Units 300-349 4 Units 350-400 5 Units Above 400 6 Units 220 (Not Given - Provider: Jaylin Angel RN - Reason: Order parameters not met) 2128 (Not Given - Provider: Jaylin Angel RN - Reason: Order parameters not met) 2099 (Canceled Entry - Provider: Automatic Discharge Provider - Comment: Automatically canceled at discontinue of medication order) mirtazapine (Remeron) tablet 30 mg 30 mg, Oral, Nightly, First dose on Wed10/31/24 at 2099 2019 (Given - Provider: Jaylin Angel RN) 2126 (Given - Provider: Jaylin Angel RN) 2099 (Canceled Entry - Provider: Automatic Discharge Provider - Comment: Automatically canceled at discontinue of medication order) piperacillin-tazobactam (Zosyn) 4,500 mg in sodium chloride 0.9 % 100 mL IVPB Mini-Bag Plus (CANCELED) 4,500 mg, IntraVENous, at 33.3 mL/hr, Administer over 3 Hours, Every 6 hours, First dose (after last modification) on Wed10/31/24 at 2100, *Adjusted dose from 3.375g IV q6h for estimated CRCl > 40mL/min per P&T policy. Original start date = 10/31/24* Mini-Bag Plus bag, Suspected Indication (Select all that apply): Skin and Soft Tissue Infection 0421 (New Bag - Provider: Gissell Jean Baptiste, ASIA)0828 (Stopped - Provider: Kirsten Montano, RN)0837 (New Bag - Provider: Kirsten Montano, RN)1256 (Stopped - Provider: Kirsten Montano RN)1520 (New Bag - Provider: Kirsten Montano, RN)1820 (Due: Stopped - Provider: Kirsten Montano RN)2020 (New Bag - Provider: Jaylin Angel, RN)2333 (Stopped - Provider: Jaylin Angel RN) 0208 (New Bag - Provider: Jaylin Angel RN)0508 (Stopped - Provider: Jaylin Angel, ASIA)1042 (New Bag - Provider: Trinity Rodney RN)1342 (Stopped - Provider: Trinity Rodney RN)1509 (Not Given - Provider: Trinity Rodney RN - Reason: Other - Comment: order dc'ed) sodium chloride 0.9% (NS) flush 5-40 mL 5-40 mL, IntraVENous, Every 12 hours, First dose on Wed10/31/24 at 1115, For Line Patency: Peripheral IV = 5 mL; Midline or Central Line = 10 mL/lumen. If following IV push medication, administer flush at same rate as the IV push. Flush volume is determined by type of infusion therapy being given. For non-viscous solutions use: Peripheral IV = 5 mL Midline or Central Line = 10 mL/lumen For viscous solutions (i.e. blood components, parenteral nutrition, contrast media, or after obtaining blood sample) use: Peripheral IV = 10 mL Midline or Central Line = 20 mL/lumen 1119 (Given - Provider: Kirsten Montano RN)2313 (Not Given - Provider: Jaylin Angel RN - Reason: IV Fluids Infusing) 1029 (Not Given - Provider: Trinity Rodney RN - Reason: IV Fluids Infusing)2310 (Given - Provider: Jaylin Angel RN) 1244 (Given - Provider: Kirsten Montano, ASIA) stomahesive in petrolatum (ET Mix) (CANCELED) Topical, Every 8 hours, First dose on Wed11/01/24 at 1230, Apply to sacrum 0421 (Given - Provider: Gissell Jean Baptiste RN) PRN Medication Order 11/07/2024 11/08/2024 11/09/2024 dextrose 5 % infusion 100 mL/hr, IntraVENous, PRN, Blood sugar less than 70mg/dL, Starting on Wed10/31/24 at 1125, Start infusion following administration of dextrose 50% or glucagon. dextrose 50 % solution 12.5 g 12.5 g, IntraVENous, PRN, low blood sugar, Blood glucose less than 70 mg/dL and patient NOT ALERT or NPO., Starting on Wed10/31/24 at 1125, If patient does not respond within 5 minutes, repeat dose x1. Start D5W at 100 mL/hour until ordering provider can be reached. Repeat blood glucose in 15 minutes. If blood glucose is less than 70 mg/dL, repeat treatment and recheck blood glucose in 15 minutes x2. If using Glucostabilizer, dose as instructed per system. glucagon (human recombinant) injection 1 mg 1 mg, IntraMUSCular, PRN, low blood sugar, Blood glucose less than 70 mg/dL and patient NOT ALERT or NPO and does not have IV access., Starting on Wed10/31/24 at 1125, After administration, attempt intravenous access and start D5W at 100 mL/hr. Repeat blood glucose in 15 minutes x2 and notify provider. glucose oral gel 15 g 15 g, Oral, As needed, low blood sugar, Starting on Wed10/31/24 at 1125, If blood glucose less than 50 mg/dL and patient ALERT and NOT NPO, give 2 tubes glucose gel. If blood glucose less than 70 mg/dL and patient ALERT and NOT NPO, give 1 tube glucose gel. Repeat blood glucose in 15 minutes. If blood glucose is less than 70 mg/dL, repeat treatment and recheck blood glucose in 15 minutes x2 and notify provider. hydrOXYzine HCl (Atarax) tablet 25 mg 25 mg, Oral, Every 8 hours PRN, itching, Starting on Wed11/07/24 at 1019 1136 (Given - Provider: Kirsten Montano, RN)2020 (Given - Provider: Jaylin Angel, RN) 0618 (Given - Provider: Jaylin Angel, RN)1830 (Given - Provider: Trinity Rodney, RN) 1900 (Given - Provider: Kirsten Montano, RN) naloxone (Narcan) injection 0.4 mg 0.4 mg, IntraVENous, Every 5 min PRN, opioid reversal, respiratory depression, Starting on Wed10/31/24 at 1326, +++ For RR <10, pinpoint pupils, over sedation for opioid reversal - MUST notify commercial pest control representative provider immediately after first dose, may give IM or SQ if no IV access +++ oxyCODONE (Roxicodone) immediate release tablet 10 mg 10 mg, Oral, Daily PRN, prior to dressing change only, Starting on Wed11/07/24 at 0600, Please give 1 hour prior to dressing change 0559 (Given - Provider: Gissell Jean Baptiste RN - Comment: for dressing change) 1428 (Given - Provider: Trinity Rodney RN) 1239 (Given - Provider: Kirsten Montano, ASIA - Comment: dressing change) oxyCODONE (Roxicodone) immediate release tablet 5 mg 5 mg, Oral, Every 4 hours PRN, mild pain (1-3), moderate pain (4-6), severe pain (7-10), Starting on Wed11/01/24 at 1420 0016 (Given - Provider: Gissell Jean Baptiste, ASIA)0421 (Given - Provider: Gissell Jean Baptiste RN)1136 (Given - Provider: Kirsten Montano, ASIA)1806 (Given - Provider: Sonja Cortes RN)2206 (Given - Provider: Jaylin Angel, RN) 0208 (Given - Provider: Jaylin Angel, RN)0617 (Given - Provider: Jaylin Angel, RN)1042 (Given - Provider: Trinity Rodney RN)1829 (Given - Provider: Trinity Rodney, ASIA)2249 (Given - Provider: Jaylin Angel, RN) 0626 (Given - Provider: Jaylin Angel, RN)1900 (Given - Provider: Kirsten Montano, ASIA) polyethylene glycol (PEG) 3350 (Miralax) packet 17 g 17 g, Oral, Daily PRN, constipation, Starting on Wed10/31/24 at 1111, 1st line for treatment of constipation - give scheduled if no bowel movement in past 24 hours. prochlorperazine (Compazine) injection 5 mg 5 mg, IntraVENous, Every 6 hours PRN, nausea, vomiting, Starting on Wed10/31/24 at 1229 sodium chloride 0.9 % infusion 5-250 mL/hr, IntraVENous, PRN, if patient receiving piggyback infusions and maintenance fluids are not ordered OR KVO fluids to protect IV site / prevent frequent line interruptions / long duration, Starting on Wed10/31/24 at 1111, For piggyback infusion, administer at same rate as piggyback for a total of 25 mL. Enter 25 mL into dose field and piggyback rate into rate field of order. If piggyback is infusing at a rate less than 100 mL/hr, enter 25 mL into dose field and 100 mL/hr into rate field of order. For KVO fluids, enter rate of 20 mL/hr or less into rate field of order. sodium chloride 0.9 % infusion 250 mL/hr, IntraVENous, Administer over 10 Minutes, As needed, For use in priming line prior to transfusion (prime via gravity) and flush line post transfusion, Starting on Wed11/01/24 at 0245, For 1 dose, For use in priming line prior to transfusion (prime via gravity) and flush line post transfusion ONLY. Discontinue once line has been cleared of remaining blood product. sodium chloride 0.9% (NS) flush 5-40 mL 5-40 mL, IntraVENous, PRN, line care, After every IV line use, Starting on Wed10/31/24 at 1111, For Line Patency: Peripheral IV = 5 mL; Midline or Central Line = 10 mL/lumen. If following IV push medication, administer flush at same rate as the IV push. Flush volume is determined by type of infusion therapy being given. For non-viscous solutions use: Peripheral IV = 5 mL Midline or Central Line = 10 mL/lumen For viscous solutions (i.e. blood components, parenteral nutrition, contrast media, or after obtaining blood sample) use: Peripheral IV = 10 mL Midline or Central Line = 20 mL/lumen Linked Groups Order Group 1: Insulin Lispro (Humalog) injection 0-6 UnitsJump to med 0-6 Units, SubCUTAneous, 3 times daily with meals, First dose on Wed10/31/24 at 1200, Low Dose Correction Algorithm Glucose: Dose: LESS than 150 No Insulin 150- 199 1 Unit 200-249 2 Units 250-299 3 Units 300-349 4 Units 350-400 5 Units Above 400 6 Units And Insulin Lispro (Humalog) injection 0-6 UnitsJump to med 0-6 Units, SubCUTAneous, Nightly, First dose on Wed10/31/24 at 2100, If eating or bolus tube feeding: Low Dose Correction Algorithm Glucose: Dose: LESS than 150 No Insulin 150-199 1 Unit 200-249 2 Units 250-299 3 Units 300-349 4 Units 350-400 5 Units Above 400 6 Units FOR RECORDS PERTAINING TO PATIENTS WHO ARE [...] BE BASED ON THE PRIMARY CLINICAL RECORDS. [facility]. provides no warranty or guarantee of the accuracy or completeness of information in this document.
[2024-11-28 11:34] LABS: Hematocrit 35.1 % (37-47); Hemoglobin 10.7 g/dL (12.0-15.0); Immature Granulocytes Count 0.030 X10^3/uL (0.0-0.0); Mean Corp Hgb Conc 30.5 g/dL (32-36); Mean Corpuscular Volume 73.9 fL (81-99); Mean Platelet Vol. 9.9 fl (6.2-12.0); NRBC Flagged by Analyzer 0 % (0-5); Platelet Count 575 K/mm3 (150-450); RBC Distribution Width CV 19.9 % (11.6-14.6); RBC Distribution Width SD 52.9 fl (35.1-43.9); Red Blood Count 4.75 M/mm3 (4.2-5.4); White Blood Count 8.3 K/mm3 (4.4-11.0)
== END ==
LOC: OLS.SW 04:00
PROVIDERS: PCP Internal Medicine; Referring Provider Internal Medicine; Visit Provider Internal Medicine
DX: R78.81 Bacteremia (principal); M86.9 Osteomyelitis, unspecified
CPT/HCPCS: 36415; 85025; 87040

== ENCOUNTER → 2024-12-05 | Outpatient (REF) | payer MEDICARE, MEDICAID, SELFPAY ==
[2024-12-08 00:07] LABS: Zinc, Plasma or Serum 78 ug/dL (44-115)
== END ==
LOC: OLS.SW 05:00
PROVIDERS: PCP Internal Medicine; Visit Provider Internal Medicine
DX: E43 Unspecified severe protein-calorie malnutrition (principal); M86.9 Osteomyelitis, unspecified; R78.81 Bacteremia
CPT/HCPCS: 36415; 84630